=== PATIENT | male | born 1955 | race Caucasian/White ===

== ENCOUNTER 2016-06-18 19:09 | Inpatient (IN) | payer MEDICARE ==
[~2016-06-18] VITALS: Ht 182.9 cm; Wt 152.7 kg
[2016-06-18] MEDS: NYSTATIN 100,000 UNITS/GM TOPICAL PWD 15 GM TOP SCH ×2 (09:00→21:00)
[~2016-06-18 19:09] MED LIST: *XRAY -; /BACL20TA OR; /ESOM40CA; /FENT50PA; /FENT50PA TD; /MOXI40TA; /ONDA4TA OR; /PANT40TA; /PANT40TA OR; /TAMS4CA; ACET65TA; ACET65TA OR; ALDA50TA2 PO; ALLO300T; ALLO300T OR; AMBI10TA OR; AMBI10TA PO; ASPI325T OR; ATEN25TA; ATEN25TA OR; ATIV1TAB2; ATROVENT0.02%; AUGM875T27 PO; BABY81CH; BACITAB PO; BACL-67 PO; BACT2CRE; BACT800T; BUTT PASTE; CARD4TAB2 OR; CEPH500C; CHLO5CA; COLA100C2 OR; DILA2TAB OR; DOCU10CA PO; DOXY10CA PO; DRIS50002 PO; DYAZIDE PO; ENOX40SY SC; EUCECRE2 TOP; FAMO40TA2; FERR325T OR; FLAG500T; FLEEENE4 PR; FLOM5CAP PO; FOLI1TAB; FOLI1TAB OR; FOLI1TAB2 PO; FURO40TA2 PO; GABA300T; HYDROCORTISONE0.5 % TOP; IBUP200T45 PO; KLOR1TAB77 PO; LASI20TA PO; LOPR50TA; LOPR50TA OR; LYRI100C10 PO; MAG400TA PO; MAGN500T2; METO5TAB2 OR; MILKSUS OR; MIRALEX PO; MORP20SO; MS C15TA5; NAPR250T; NAPROSY500 PO; NEURONTIN3 PO; NIFEREX; NORCOTAB PO; NORV5TAB OR; NYST10PW TOP; NYSTATIN POWDER; NYSTATIN TOP; OMEP40CA2 PO; OXYB15TA OR; OXYC5CAP4 OR; PAIN325T; PAXI20TA; PERCOCET PO; POTA10CA2; POTA20TA2; POTASSIUM PO; PREG50CA PO; PROZ20CA11 PO; RAPAFLO; SENN-23 PO; SERT100T OR; SILVADENE; THERGRAN; TOPR50TA PO; Theragran PO; Thiamine Hcl PO; ULTR50TA PO; VICO5TAB; VICO5TAB OR; VICODIN PO; VITA20008 PO; VITA500T OR; VITAMIN B12; VITAMIN B12 PO; XOPE1.252; ZEST10TA5 PO; ZINC220C OR; ZOLO100T; ZOLO50TA; [UNRECOGNIZED DRUG - CODE] PO; [UNRECOGNIZED DRUG - CODE] PO; [UNRECOGNIZED DRUG - OTHER] PO; albuterol sulfate INH; bacid PO; nystatin powder TOP
[2016-06-18] MEDS ORDERED: IPRASOL4 IN (19:33)
[2016-06-18] MEDS ORDERED: MUCI600T34 PO (19:33)
[2016-06-18] MEDS ORDERED: ALBU0.63 INH (19:33)
[2016-06-18] MEDS ORDERED: MULT1TAB10 PO (19:33)
[2016-06-18] MEDS ORDERED: FERR325T3 PO (19:33)
[2016-06-18 20:07] LABS: INR 1.16
[2016-06-18 20:08] LABS: EOS % 0.1 % (0.0-3.0); LARGE UNSTAINED CELL # 0.2 K/mm3 (0.0-0.4); LARGE UNSTAINED CELL % 0.9 % (0.0-4.0); LYMPH # 0.7 K/mm3 (1.5-4.5); MEAN CORPUSCULAR HEMOGLOBIN 30.9 pg (27.0-33.0); MEAN CORPUSCULAR HGB CONC 35.9 g/dl (32.0-36.5); MEAN CORPUSCULAR VOLUME 86.1 fl (80.0-96.0); MONO # 0.9 K/mm3 (0.0-0.8); MONO % 4.3 % (0.0-5.0); NEUTROPHILS % 91.6 % (36.0-66.0); PLATELET COUNT, AUTOMATED 149 k/mm3 (150-450); RED CELL DISTRIBUTION WIDTH 14.3 % (11.5-14.5); WHITE BLOOD COUNT 21.8 K/mm3 (4.0-10.0)
[2016-06-18 20:23] LABS: ALBUMIN 2.6 GM/DL (3.2-5.2); ALBUMIN/GLOBULIN RATIO 0.57 (1.00-1.93); ALKALINE PHOSPHATASE 99 U/L (45-117); ALT/SGPT 28 U/L (12-78); AMYLASE 20 U/L (25-115); ANION GAP 15 MEQ/L (8-16); AST/SGOT 39 U/L (15-37); BILIRUBIN,DIRECT 0.3 MG/DL (0.0-0.2); BILIRUBIN,TOTAL 0.7 MG/DL (0.2-1.0); BLOOD UREA NITROGEN 17 MG/DL (7-18); CALCIUM LEVEL 7.1 MG/DL (8.8-10.2); CARBON DIOXIDE LEVEL 20 MEQ/L (21-32); CHLORIDE LEVEL 77 MEQ/L (98-107); CREATININE FOR GFR 1.14 MG/DL (0.70-1.30); GLOMERULAR FILTRATION RATE > 60.0 (>49); GLUCOSE, FASTING 116 MG/DL (80-110); SODIUM LEVEL 112 MEQ/L (136-145); TOTAL PROTEIN 7.2 GM/DL (6.4-8.2)
[2016-06-18] MEDS ORDERED: NS 500 ML IV ONE (20:45)
[2016-06-18] MEDS ORDERED: NS 1,000 ML IV ONE (20:45)
[2016-06-18] MEDS ORDERED: ISOVUE-370 76% 100ML VIAL (Q9967) As Ordered ONE (20:46)
[2016-06-18] MEDS ORDERED: PREGABALIN 100 MG CAP (LYRICA) PO SCH (21:00)
[2016-06-18] MEDS: SENOKOT S TAB PO SCH (21:00)
--- NOTE | 2016-06-18 21:40 | REPUSA ---
CLINICAL HISTORY: Edema. COMMENTS: Real time sonography with duplex doppler of the extremities bilaterally was performed with attention to the major deep venous structures. Somewhat limited study due to habitus. Evaluation reveals the common femoral, superficial femoral and popliteal veins bilaterally to be comp letely compressible without intraluminal thrombus. There is normal spontaneous phasic flow and augmen tation in all deep veins. The greater saphenous/common femoral vein junctions are patent bilaterally. IMPRESSION: No evidence of DVT in the lower extremities bilaterally. Thank you for your kind referral of this patient.
[2016-06-18] MEDS ORDERED: ONDANSETRON 4MG/2ML VIAL (J2405) IV PRN (22:45)
[2016-06-18] MEDS ORDERED: VITMTA PO (22:50)
[2016-06-18] MEDS ORDERED: POTA20TA PO (22:50)
[2016-06-18] MEDS ORDERED: METO50TA2 PO (22:50)
[2016-06-18] MEDS ORDERED: FLUO20TA28 PO (22:51)
[2016-06-18] MEDS ORDERED: EUCECRE3 TOP (22:57)
[2016-06-18] MEDS ORDERED: IBUPOTC PO (22:57)
[2016-06-18] MEDS ORDERED: CALMOIN TOP (22:57)
[2016-06-18] MEDS ORDERED: ALBUTEROL SULFATE 2.5 MG/0.5 ML INH NEB SOLN INH PRN (23:00)
[2016-06-18] MEDS ORDERED: IPRATROPIUM 0.5MG/ALBUTEROL 2.5MG INH SOL UD 3ML (DUONEB)(J7620) INH PRN (23:00)
[2016-06-18] MEDS ORDERED: SODIUM CHLORIDE 3% 500 ML IV ONE (23:15)
[2016-06-18 23:53] VITALS: BP 151/87
[2016-06-18] MEDS: PANTOPRAZOLE 40MG INJ (PROTONIX) (C9113) IV SCH (23:58)
[2016-06-19] VITALS (34 sets, daily range): BP systolic 84–152; BP diastolic 49–74
[2016-06-19 00:13] LABS: ANION GAP 12 MEQ/L (8-16); BLOOD UREA NITROGEN 19 MG/DL (7-18); CARBON DIOXIDE LEVEL 21 MEQ/L (21-32); CHLORIDE LEVEL 80 MEQ/L (98-107); CHOLESTEROL LEVEL 99 MG/DL (<200); CREATININE FOR GFR 1.04 MG/DL (0.70-1.30); GLOMERULAR FILTRATION RATE > 60.0 (>49); GLUCOSE, FASTING 103 MG/DL (80-110); MAGNESIUM LEVEL 1.7 MG/DL (1.8-2.4); POTASSIUM SERUM 4.1 MEQ/L (3.5-5.1); SODIUM LEVEL 113 MEQ/L (136-145); TRIGLYCERIDES LEVEL 101 MG/DL (<150)
[2016-06-19] MEDS ORDERED: SODIUM CHLORIDE 3% 50 ML IV ONE (00:13)
[2016-06-19] MEDS ORDERED: MAG SULF 1GM/100ML (MAG RUN) 1 GM in APPROPRIATE DILUENT 1 EA IV ONE (01:15)
[2016-06-19] MEDS: PROMETHAZINE INJ 25 MG/ML VIAL (J2550) IV PRN ×2 (01:33→06:40)
[2016-06-19 03:30] LABS: ANION GAP 9 MEQ/L (8-16); BLOOD UREA NITROGEN 21 MG/DL (7-18); CALCIUM LEVEL 7.2 MG/DL (8.8-10.2); CARBON DIOXIDE LEVEL 24 MEQ/L (21-32); CHLORIDE LEVEL 81 MEQ/L (98-107); CREATININE FOR GFR 1.15 MG/DL (0.70-1.30); GLOMERULAR FILTRATION RATE > 60.0 (>49); GLUCOSE, FASTING 109 MG/DL (80-110); POTASSIUM SERUM 4.2 MEQ/L (3.5-5.1); SODIUM LEVEL 114 MEQ/L (136-145)
[2016-06-19] MEDS ORDERED: SODIUM CHLORIDE 3% 500 ML IV SCH (04:15)
--- NOTE | 2016-06-19 05:02 | REP ---
Clinical: Acute abdominal pain. Technique: Axial contrast enhanced images from the lung bases to the pubic symphysis using 100 ml Isovue 370 intravenous contrast material with coronal and sagittal re-formations. Comparison: 07/27/2010. Findings: Lung bases demonstrate chronic interstitial changes and chronic interstitial edema with trace basilar atelectasis. Cholelithiasis noted without CT evidence for acute cholecystitis. Liver, spleen, pancreas, and bilateral adrenal glands are relatively normal. Kidneys and demonstrate age-related atrophic changes and bilateral hypodensities likely representing cysts measuring up to 6 cm in the right kidney and 5.2 cm in left kidney. Complex cyst/mass involving the lower pole of the right kidney measures 2.8 cm maximal diameter and may warrant ultrasound evaluation. The the enteric system is without obstruction or acute inflammatory process. Pelvis demonstrates normal bladder and age appropriate prostate/seminal vesicles. No ascites. No obvious free air. No obvious intraperitoneal or retroperitoneal adenopathy. Vasculature demonstrates atherosclerotic changes without aneurysm. Skeletal structures demonstrate degenerative changes without focal osseous abnormality. Impression: 1. Limited examination due to technical factors and motion artifact. 2. Bibasilar atelectasis and chronic pulmonary parenchymal changes. 3. Cholelithiasis without CT evidence for acute cholecystitis. 4. Renal cysts and possible right complex renal cyst/mass at the inferior pole requiring ultrasound evaluation. Signed by Compa iRggs MD 06/19/2016 04:54 A
[2016-06-19] MEDS: METOPROLOL TART 25 MG TABLET PO SCH ×3 (06:00→18:00)
[2016-06-19 06:55] LABS: MEAN CORPUSCULAR HGB CONC 34.8 g/dl (32.0-36.5); MEAN CORPUSCULAR VOLUME 86.2 fl (80.0-96.0); RED CELL DISTRIBUTION WIDTH 14.5 % (11.5-14.5); WHITE BLOOD COUNT 13.6 K/mm3 (4.0-10.0)
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
[2016-06-19 07:03] LABS: ANION GAP 10 MEQ/L (8-16); BLOOD UREA NITROGEN 24 MG/DL (7-18); CALCIUM LEVEL 6.9 MG/DL (8.8-10.2); CARBON DIOXIDE LEVEL 22 MEQ/L (21-32); CHLORIDE LEVEL 84 MEQ/L (98-107); CREATININE FOR GFR 1.21 MG/DL (0.70-1.30); GLOMERULAR FILTRATION RATE > 60.0 (>49); GLUCOSE, FASTING 101 MG/DL (80-110); MAGNESIUM LEVEL 2.3 MG/DL (1.8-2.4); POTASSIUM SERUM 4.1 MEQ/L (3.5-5.1); SODIUM LEVEL 116 MEQ/L (136-145)
[2016-06-19 07:09] LABS: OSMOLALITY URINE 231 MOSM/KG (500-800)
[2016-06-19] MEDS ORDERED: OXAZEPAM 10 MG CAP PO PRN (07:15)
[2016-06-19] MEDS ORDERED: SANTYL OINT 30GM TOP SCH (09:00)
[2016-06-19] MEDS: TAMSULOSIN 0.4 MG CAP PO SCH (09:00)
[2016-06-19] MEDS ORDERED: FERROUS SULFATE 325MG TAB PO SCH (09:00)
[2016-06-19] MEDS: BACLOFEN 10 MG TAB PO SCH (09:51)
[2016-06-19] MEDS: FOLIC ACID 1 MG TAB PO SCH (09:51)
[2016-06-19] MEDS: THIAMINE 100 MG TAB PO SCH (09:51)
[2016-06-19] MEDS: MULTIVITAMINS/MINERALS THERAP 1 TAB PO SCH (09:51)
[2016-06-19] MEDS: PANTOPRAZOLE 40MG INJ (PROTONIX) (C9113) IV SCH ×2 (09:51→21:16)
[2016-06-19] MEDS: PREGABALIN 75 MG CAP(LYRICA) PO SCH ×2 (09:53→21:16)
[2016-06-19] MEDS: NYSTATIN 100,000 UNITS/GM TOPICAL PWD 15 GM TOP SCH ×2 (09:53→21:17)
[2016-06-19 10:38] LABS: ANION GAP 9 MEQ/L (8-16); BLOOD UREA NITROGEN 25 MG/DL (7-18); CALCIUM LEVEL 7.3 MG/DL (8.8-10.2); CARBON DIOXIDE LEVEL 23 MEQ/L (21-32); CHLORIDE LEVEL 86 MEQ/L (98-107); CREATININE FOR GFR 1.22 MG/DL (0.70-1.30); GLOMERULAR FILTRATION RATE > 60.0 (>49); GLUCOSE, FASTING 93 MG/DL (80-110); POTASSIUM SERUM 4.1 MEQ/L (3.5-5.1); SODIUM LEVEL 118 MEQ/L (136-145)
[2016-06-19] MEDS ORDERED: CALCIUM GLUCONATE 1,000 MG in D5W MINI-BAG PLUS 100 ML IV ONE (11:00)
[2016-06-19 11:03] LABS: ALBUMIN 2.5 GM/DL (3.2-5.2)
[2016-06-19 11:45] LABS: OSMOLALITY URINE 107 MOSM/KG (500-800)
--- NOTE | 2016-06-19 11:46 | ECGEPIP ---
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
[2016-06-19] MEDS: OXAZEPAM 10 MG CAP PO SCH ×2 (12:00→18:00)
[2016-06-19] MEDS ORDERED: NS 500 ML IV ONE (13:00)
--- NOTE | 2016-06-19 13:07 | IPN ---
DATE OF SERVICE: 06/19/2016 Patient admitted overnight. Denies any reported nausea or vomiting, with coarse coffee ground and cough productive of yellow phlegm. Denies any fevers or chills. Reported epigastric abdominal discomfort associated with vomiting. Patient also reported significant alcohol drinking, last drink was yesterday. Denies any chest pain, pressure or discomfort. Denies any fevers or chills. VITAL SIGNS: Temperature 98, pulse 105, respirations 20, blood pressure 96/52, pulse oximetry 95% on room air. LABORATORIES: WBC 13.6, hemoglobin and hematocrit 9.8/28.1, platelets 121. Chemistries: Sodium 118, potassium 4.1, chloride 86, bicarb 23, BUN 25, creatinine 1.22. PHYSICAL EXAMINATION: GENERAL: Patient morbidly obese, pale, in no acute distress. HEENT: Disheveled. Alert. Normocephalic, atraumatic. Moist mucous membranes. PULMONARY: Bilaterally clear. No wheeze. Distant breath sounds. CARDIAC: Mild tachycardia, regular S1 and S2. ABDOMEN: Obese. Mild epigastric tenderness. No rebound, no guarding. Positive bowel sounds. EXTREMITIES: Denuded skin in the inguinal region due to likely candidal infection. Left lower extremity cem wrap intact, was cut showing venous stasis skin changes with ulcers, draining purulent drainage. Affect flattened. ASSESSMENT/PLAN: This is a 61-year-old male patient, morbidly obese, with underlying medical history of chronic back pain, hypertension, spinal cord injury in 2001 resulting in being wheelchair bound with lower extremity paralysis, chronic left leg ulceration with venous stasis skin changes, history of gangrene in the left groin 2006, depression, venous insufficiency of his lower extremities, benign prostatic hypertrophy (BPH), alcohol abuse, gastroesophageal reflux disease (GERD), vitamin D deficiency, insomnia, who presented with hyponatremia with suspected coffee ground emesis. 1. Severe hyponatremia. Urine sodium and urine osmolality appreciated, TSH and cortisol levels. Possible SIADH. Patient's diuretic has been on hold. Pattern Layout Worker Dr. Turcios has been consulted. Patient currently on hypotonic saline. Follow basic metabolic panel every 4 hours. Possible alternative is beer potomania given the patient has been drinking excessive since he signed himself from the retirement in [place]. No evidence of seizures or altered mental status. 2. Coffee ground emesis, possibly upper GI bleed. Protonix twice a day. Gastritis. Fecal occult positive in the emergency room. Dr. Jimenez has been consulted. Nothing by mouth right now for possible EGD later today once electrolytes are improved. 3. Leukocytosis, likely reactive. Has been improving without any significant antibiotics. Will continue to monitor closely. If the patient is febrile will send cultures. Followup cultures. 4. Chronic left lower extremity ulcers. Patient was initially taken care of by wound at [place]. He is supposed to be followed up with Dr. Perera. Case discussed with Dr. Perera who recommends Vashe cleanser with collagenase and foam dressing with Kerlix and Coban, and leg elevation. Will followup C-reactive protein to see if the patient needs additional cultures to see if the patient needs any antibiotics. 5. Renewed alcohol use. Monitor for withdrawal. Serax standing as needed. Patient is mildly tachycardic. Thiamine, folic and multivitamin. 6. Morbid obesity complicating care. 7. Anemia with normal MCV. Followup hemoglobin and hematocrit. Transfuse as needed. 8. Hypoalbuminemia. Protein calorie malnutrition. Early feeding. Supportive care. 9. Lactic acidosis. Will continue to monitor. 10. Chronic back pain with spinal cord injury. Patient wheelchair bound. Supportive care. Patient and family services (PFS) consulted. 11. Deep vein thrombosis (DVT) prophylaxis. Due to evidence of upper GI bleed, sequential compression devices (SCD) and thromboembolic deterrent stockings (TEDS) will only be placed on the patient's right lower extremity given the patient's left lower extremity has lesions. DISPOSITION: Pending clinical improvement, patient and family services (PFS). Will continue to follow.
[2016-06-19] MEDS ORDERED: CEFTAROLINE FOSAMIL 600 MG in D5W MINI-BAG PLUS 50 ML IV SCH (13:30)
--- NOTE | 2016-06-19 13:58 | ECHO ---
DATE OF SERVICE: 06/19/2016 PATIENT LOCATION: Room 3207. REFERRING PROVIDER: Dr. Pruitt REASON FOR THE CONSULT: Edema. 2D MEASUREMENTS: IVS: 1.4 cm LV: 4.6 cm LVPW: 1.5 cm LA: 4.1 cm Aorta: 3.9 cm IVC: 1.7 cm DOPPLER MEASUREMENTS: Mitral E: 0.65 Mitral A: 0.87 with a ratio of 0.75 2D COMMENTS: 1. Technically limited study due to poor acoustic window. 2. The left ventricular size is normal with mildly increased left ventricular wall thickness and a normal global left ventricular systolic function estimated at 60-65%. 3. Mildly enlarged left atrium. The right atrium and the right ventricle appear to be normal in size on limited views. 4. The atrial septum appeared to be normal without evidence of defect or shunt. 5. Mildly enlarged aortic root at 3.9 cm. The descending thoracic aorta also appeared to be mildly enlarged on limited views. 6. Trace to small pericardial effusion noted, no evidence of cardiac tamponade. 7. Mildly calcified aortic valve with normal leaflet excursion. Mildly calcified mitral annulus with normal anterior mitral valve leaflet motion. Normal tricuspid valve. The pulmonic valve on limited views appeared to be normal. The proximal pulmonary artery branches were not well visualized. 8. The inferior vena cava was normal in size, central venous pressure is probably normal. DOPPLER: No significant valvular abnormalities detected. Abnormal relaxation pattern was noted across the mitral valve leaflets as well as the mitral valve annulus, consistent with a delayed relaxation. IMPRESSION: 1. Technically limited study due to poor acoustic window. 2. Normal global left ventricular systolic function with mild concentric left ventricular hypertrophy. There are features of left ventricular diastolic dysfunction, grade 1. 3. Aortic valve sclerosis without stenosis or significant aortic regurgitation. 4. Isolated mildly dilated left atrium, no significant mitral regurgitation detected. There is mildly calcified mitral annulus. The dilated left atrium is most likely related to the underlying left ventricular diastolic dysfunction because there is no significant mitral regurgitation and/or mitral stenosis. 5. Central venous pressure is probably normal, as well as pulmonary artery pressure. 6. The aortic root was mildly enlarged at 3.9 cm. edited: 06/19/2016 [id number] tkf MTDD
[2016-06-19] MEDS: cefTRIAXone SOD 1 GM in D5W MINI-BAG PLUS 50 ML IV SCH (14:13)
--- NOTE | 2016-06-19 14:22 | REP ---
Chest one-view HISTORY: Cough Comparison: 12/03/2013 There is elevation of the right hemidiaphragm. The lungs are clear. The heart is normal in size. The pulmonary vasculature is normal in appearance. Impression: No acute disease. Signed by Uday Granados MD 06/19/2016 02:14 P
[2016-06-19] MEDS ORDERED: SLF 3 ML SYR IV PRN (14:45)
--- NOTE | 2016-06-19 14:46 | CR ---
DATE OF CONSULTATION: 06/19/2016 REQUESTING PHYSICIAN: Ravi Wilkins MD CONSULTING PHYSICIAN: Selwyn Turcios MD REASON FOR CONSULTATION: Management of severe hyponatremia. CHIEF COMPLAINT: Patient presented to the hospital yesterday with persistent vomiting. NOTE: History was obtained from the patient's chart from primary medical team. Patient is not a very good historian. HISTORY OF PRESENT ILLNESS: Mr. Rocio Eng is a 61-year-old male who has a past medical history of morbid obesity, and questionable history of hyponatremia in the past as well, as reported by the patient. He was recently discharged from the residential on June 13, 2016. When he went home he started drinking beer for the first time in many months. He started vomiting after that without any abdominal pain. The patient was drinking beer and drinking a lot of liquids and he was not eating a significant amount of food. The patient started vomiting coffee ground emesis two days before discharge. He presented to the emergency room yesterday because of severe nausea, vomiting and weakness. He was found to have a sodium of 112 on admission with serum osmolality of 241. The patient was discussed by me with the quality control lead hospitalist yesterday, Dr. Wilkins. He was initially hydrated with 1500 mL of IV normal saline. Later on, because of nausea, vomiting and severe hyponatremia, he was given a bolus of hypertonic saline 50 mL, and later on started on hypotonic saline at 30 mL an hour. Health Informatics Advisor service is on board for management of severe hyponatremia. The patient was examined by me today in the morning in the ICU. He is awake, alert and oriented times three. He is still nauseated, but he reports that his vomiting is improving now. PAST MEDICAL HISTORY: Patient has a past medical history of morbid obesity, chronic back pain, hypertension, left sided leg ulcer, history of depression, bilateral lower extremity venous insufficiency, BPH, vitamin D deficiency, insomnia, and depression. PAST SURGICAL HISTORY: In the past, patient had right hernia surgery in the past. Skin graft of the left leg. ALLERGIES: No known drug allergies. HOME MEDICATIONS: The patient's home medications included: - albuterol as needed - DuoNeb nebulizations as needed - baclofen 20 mg by mouth daily - Colace two tablets at night - iron tablet on by mouth daily - fluoxetine 30 mg by mouth daily - Lasix 20 mg by mouth daily - Mucinex 600 mg by mouth twice a day - ibuprofen 200 mg every 6 hours as needed - metoprolol 50 mg twice a day - multivitamin - nystatin topical - omeprazole 20 mg by mouth daily - potassium chloride 20 mEq by mouth daily - Lyrica 75 mg by mouth twice a day - spironolactone 50 mg by mouth daily - Flomax 0.4 mg by mouth daily - Ambien 10 mg at bedtime FAMILY HISTORY: No significant family history of end stage renal disease or hemodialysis. SOCIAL HISTORY: Patient was recently discharged from the residential after a long stay there. He does not smoke. Patient is wheelchair bound. REVIEW OF SYSTEMS: CONSTITUTIONAL: Patient reports weakness and inability to walk around. Otherwise, he denies any fever, chills or rigors. EYES: Patient denies any blurry vision or double vision. ENT: He denies any dysphagia or odynophagia, ear discharge or ear pain. CARDIOVASCULAR: He denies any chest pains or palpitations. RESPIRATORY: He reports a history of obesity hypoventilation and obstructive sleep apnea (RUTH). Otherwise, he denies any shortness of breath at this time. GASTROINTESTINAL (GI): He reports vomiting blood and nausea and decreased appetite. GENITOURINARY (): He denies any dysuria or hematuria. MUSCULOSKELETAL: He reports a left leg ulcer and lower extremity edema. SENIOR QUALITY MANAGER: He denies any strokes or seizures. SKIN: He reports a fungal rash in the groin. PSYCH: He reports a history of depression. HEMATOLOGIC/ONCOLOGIC: He denies any history of malignancy. ENDOCRINE: Patient denies any history of diabetes, hyperthyroidism, or hypothyroidism. All other review of systems is negative. PHYSICAL EXAMINATION: GENERAL: Patient is awake, alert and oriented times three, laying in bed, slightly nauseated. Otherwise, no apparent distress. VITAL SIGNS: Temperature is 98 degrees Fahrenheit, blood pressure is 96/52, pulse is 105, respiratory rate of 20, saturating 95% on room air. INTAKE AND OUTPUT: Urine output recorded as 800 mL so far today since overnight. HEAD/NECK EXAM: Extraocular muscles intact. Pupils equally round and reactive to light. Mucous membranes are moist. Neck is supple. There is no jugular venous distention (JVD). CARDIOVASCULAR: S1 and S2, slight tachycardia, otherwise, no murmur, rub or gallop. RESPIRATORY: Chest is clear to auscultation bilaterally. Bilateral equal air entry. No rales or rhonchi. ABDOMEN: Soft. Positive bowel sounds. He is obese. There is no organomegaly. No ascites. Patient has a fungal rash in the groin. GENITOURINARY (): Patient has a Anderson catheter with clear urine in the bag. EXTREMITIES: Patient has venous stasis changes of the bilateral lower extremities with trace edema of he right leg. The left leg is wrapped in a dressing. SENIOR QUALITY MANAGER: No focal neurological deficits at this time. Patient follows all commands. PSYCH: Normal mood and affect. SKIN: Groin fungal rash as mentioned above and left leg ulcer. LAB REVIEW: CBC showed a WBC of 13.6, hemoglobin 9.8, platelets of 121, INR is 1.16. Urinalysis showed 2+ blood. Trace leukocyte esterase. WBCs were 13. Random osmolality was 231 with a sodium of 11, but a random urine osmolality is 107 and urine sodium is less than 10. BMP on admission showed a sodium of 112. Now his sodium has improved to 118. Potassium is 4.1. Chloride is 86, bicarb is 23, BUN is 25, creatinine is 1.22. Serum osmolarity was 241 yesterday. Calcium is 7.3. Albumin is 2.5. Lipase is 80. Cortisol is pending. TSH is 0.725. Amylase is 20, lipase is 111. Lipid panel is within acceptable limits. BNP was 104. IMAGING: Doppler of the bilateral lower extremities was negative for DVT. CT scan of the abdomen and pelvis with IV contrast was done yesterday which showed bibasilar atelectasis and chronic pulmonary parenchymal changes. There were renal cysts bilaterally with a possible complex right renal cyst requiring ultrasound evaluation. CURRENT MEDICATIONS: The patient's current medications include: - hypertonic saline at 30 mL an hour - mag sulfate 1 gram IV times one dose was given today - calcium gluconate 1 gram IV times one dose - DuoNeb nebulizations - baclofen 20 mg by mouth daily - Santyl topical ointment - folic acid 1 mg by mouth daily - metoprolol 25 mg every 6 hours with holding parameters - nystatin topical powder - Zofran as needed - oxazepam 10 mg every 4 hours as needed for withdrawal - Protonix 40 mg IV every 12 hours - Lyrica 75 mg by mouth twice a day - Flomax 0.4 mg by mouth daily - thiamine 100 mg by mouth daily ASSESSMENT: 61-year-old male who was admitted with an upper gastrointestinal (GI) bleed, severe hyponatremia. Nephrology service following the patient for management of severe hyponatremia. PLAN: 1. Severe hypotonic hyponatremia. Patient seems euvolemic to slightly hypervolemic, however, the patient is having GI bleed and he is borderline hypotensive as well. Urine osmolarity was initially high, which is coming down now. Urine sodium is very low. Initial picture looked syndrome of inappropriate secretion of antidiuretic hormone (SIADH) probably secondary to medications; however, I am going to do an echocardiogram as well to rule out congestive heart failure (CHF). I cannot give Lasix to this patient at this time because of borderline hypotension and GI bleed. Patient is getting hypertonic saline at 30 mL an hour. Sodium is nicely improving. The aim of correction of sodium level will be around 6-8 mEq every 24 hours. Patient clinically neurologically is stable. Continue to check BMP every 4 hours and urine osmolality and urine sodium every 8 hours for now. 2. Acute upper GI bleeding, most likely secondary to gastritis. Patient was drinking heavily as well. Patient is still nauseated. GI consult is pending. Continue the Protonix 40 mg IV twice a day. Continue anti-nausea medications. Monitor CBC every 8 hours. Transfuse as needed for a drop in hemoglobin below 8. 3. Leukocytosis. Left lower extremity ulcer and WBCs in the urine. I am going to start the patient on IV Rocephin for leukocytosis and prevention of infection. Once the GI bleed improves, then IV antibiotics will be stopped. 4. History of depression. Patient was on fluoxetine 30 mg by mouth daily. Fluoxetine sometimes can cause SIADH and hyponatremia, especially in the elderly. Fluoxetine has been held. It should not be restarted at this time and if needed, the patient should be given a non-SSRI antidepressant to prevent recurrence hyponatremia in the future. 5. Hypertension. Patient is currently hypotensive because of the GI bleed. Metoprolol has holding parameters. He is not receiving metoprolol at this time. Thank you for involving us in the care of this patient. We shall be happy to follow the patient along with you. I will continue to follow the serial BMP and adjust the IV fluids as needed. Plan of care was discussed with the patient's RN at the bedside and with the quality control lead hospitalist last night.
[2016-06-19 14:50] LABS: ANION GAP 9 MEQ/L (8-16); BLOOD UREA NITROGEN 24 MG/DL (7-18); CARBON DIOXIDE LEVEL 23 MEQ/L (21-32); CHLORIDE LEVEL 90 MEQ/L (98-107); CREATININE FOR GFR 1.25 MG/DL (0.70-1.30); GLOMERULAR FILTRATION RATE > 60.0 (>49); GLUCOSE, FASTING 86 MG/DL (80-110); POTASSIUM SERUM 4.3 MEQ/L (3.5-5.1); SODIUM LEVEL 122 MEQ/L (136-145)
[2016-06-19] MEDS ORDERED: LIDOCAINE 2% INJ 100 MG/5 ML SDV (FOR ANES.) As Ordered ONE (15:15)
[2016-06-19] MEDS ORDERED: PROPOFOL 200 MG/20 ML VIAL As Ordered ONE (15:15)
[2016-06-19] MEDS ORDERED: PHENYLephrine HCL 500 MCG/5 ML (100MCG/ML) SYRINGE (J2370) As Ordered ONE ×2 (15:29→15:47)
--- NOTE | 2016-06-19 16:19 | ROOR ---
Patient Name: Rocio Eng Procedure Date: 06/19/2016 2:59 PM Date of : 1955 Age: 61 Gender: Male Note Status: Finalized Procedure: Upper GI endoscopy Indications: Acute post hemorrhagic anemia, Coffee-ground emesis, Hematemesis Providers: Ravi JIMENEZ MD Referring MD: 2. Inpatient 2. Inpatient Requesting Provider: 2. Inpatient 2. Inpatient Medicines: Monitored Anesthesia Care Complications: No immediate complications. Procedure: Pre-Anesthesia Assessment: - The heart rate, respiratory rate, oxygen saturations, blood pressure, adequacy of pulmonary ventilation, and response to care were monitored throughout the procedure. The Endoscope was introduced through the mouth, and advanced to the second part of duodenum. The upper GI endoscopy was accomplished without difficulty. The patient tolerated the procedure well. Findings: Severe esophagitis was found in the entire esophagus. A 5 mm non-bleeding Claudette-Turner tear with fresh adherent blood clot/stigmata of recent bleeding was found. To repair the defect, the tissue edges were approximated and four hemostatic clips were successfully placed (MR conditional). Closure of the defect was successful. There was no bleeding at the end of the procedure. The entire examined stomach was normal. Biopsies were taken with a cold forceps for Helicobacter pylori testing. Multiple erosions without bleeding were found in the first portion of the duodenum and in the second portion of the duodenum. Impression: - Claudette-Turner tear at/below EG junction. Clips (MR conditional) were placed. - Severe esophagitis with mucosal sclerosis. - Normal stomach. Biopsied. - Erosive duodenopathy without bleeding. Recommendation: - Use a proton pump inhibitor IV BID. - Use Zofran (ondansetron) 4 mg IV QID.(straight dose to prevent nausea/retching for the next 24 hrs, then can use PRN - Clear liquid diet. - Observe patient's clinical course. - [facility] care. Ravi Jimenez MD Ravi JIMENEZ MD 06/19/2016 4:19:37 PM This report has been signed electronically. Number of Addenda: 0 Note Initiated On: 06/19/2016 2:59 PM Estimated Blood Loss: Estimated blood loss: none.
[2016-06-19] MEDS: AZITHROMYCIN INJ 500 MG, VIAL MATE ADAPTER 1 EACH in D5W 250 ML IV SCH (16:24)
[2016-06-19 16:59] LABS: OSMOLALITY URINE 92 MOSM/KG (500-800)
[2016-06-19 18:33] LABS: ANION GAP 11 MEQ/L (8-16); BLOOD UREA NITROGEN 23 MG/DL (7-18); CALCIUM LEVEL 6.8 MG/DL (8.8-10.2); CARBON DIOXIDE LEVEL 21 MEQ/L (21-32); CHLORIDE LEVEL 92 MEQ/L (98-107); CREATININE FOR GFR 1.27 MG/DL (0.70-1.30); GLOMERULAR FILTRATION RATE > 60.0 (>49); GLUCOSE, FASTING 100 MG/DL (80-110); POTASSIUM SERUM 3.4 MEQ/L (3.5-5.1); SODIUM LEVEL 124 MEQ/L (136-145)
[2016-06-19] MEDS: ONDANSETRON 4MG/2ML VIAL (J2405) IV SCH (18:48)
[2016-06-19] MEDS ORDERED: POTASSIUM CHLORIDE 10 MEQ SR TABLET PO ONE ×2 (19:30→23:00)
[2016-06-19] MEDS ORDERED: D5W 1000 ML IV ONE (19:30)
[2016-06-19] MEDS: SENOKOT S TAB PO SCH (21:16)
[2016-06-19] MEDS: SLF 3 ML SYR IV SCH (21:17)
[2016-06-19 21:57] LABS: OSMOLALITY URINE 87 MOSM/KG (500-800)
[2016-06-19 22:35] LABS: CREATININE FOR GFR 1.4 MG/DL (0.70-1.30); POTASSIUM SERUM 3.6 MEQ/L (3.5-5.1)
[2016-06-19] MEDS ORDERED: D5W 250 ML IV ONE (23:00)
[2016-06-20] VITALS (10 sets, daily range): BP systolic 95–131; BP diastolic 52–74
[2016-06-20] MEDS: ONDANSETRON 4MG/2ML VIAL (J2405) IV SCH ×2 (00:08→05:36)
[2016-06-20 01:54] LABS: OSMOLALITY URINE 93 MOSM/KG (500-800)
[2016-06-20 02:26] LABS: CALCIUM LEVEL 7.6 MG/DL (8.8-10.2); CREATININE FOR GFR 1.4 MG/DL (0.70-1.30)
[2016-06-20] MEDS: OXAZEPAM 10 MG CAP PO SCH ×2 (05:32)
[2016-06-20] MEDS: METOPROLOL TART 25 MG TABLET PO SCH ×5 (05:32→23:55)
[2016-06-20] MEDS: SLF 3 ML SYR IV SCH ×3 (05:37→21:47)
[2016-06-20 06:08] LABS: OSMOLALITY URINE 102 MOSM/KG (500-800)
[2016-06-20 06:20] LABS: MEAN CORPUSCULAR HEMOGLOBIN 31.2 pg (27.0-33.0); MEAN CORPUSCULAR HGB CONC 35.1 g/dl (32.0-36.5); MEAN CORPUSCULAR VOLUME 88.8 fl (80.0-96.0); RED CELL DISTRIBUTION WIDTH 14.9 % (11.5-14.5); WHITE BLOOD COUNT 9.4 K/mm3 (4.0-10.0)
[2016-06-20 06:31] LABS: CALCIUM LEVEL 7.5 MG/DL (8.8-10.2); CREATININE FOR GFR 1.46 MG/DL (0.70-1.30); GLOMERULAR FILTRATION RATE 52.4 (>49); MAGNESIUM LEVEL 2.4 MG/DL (1.8-2.4); POTASSIUM SERUM 4.1 MEQ/L (3.5-5.1)
[2016-06-20] MEDS: PANTOPRAZOLE 40MG INJ (PROTONIX) (C9113) IV SCH ×2 (09:30→21:46)
[2016-06-20] MEDS: FOLIC ACID 1 MG TAB PO SCH (09:31)
[2016-06-20] MEDS: MULTIVITAMINS/MINERALS THERAP 1 TAB PO SCH (09:31)
[2016-06-20] MEDS: THIAMINE 100 MG TAB PO SCH (09:31)
[2016-06-20] MEDS: BACLOFEN 10 MG TAB PO SCH (09:31)
[2016-06-20] MEDS: PREGABALIN 75 MG CAP(LYRICA) PO SCH ×2 (09:31→21:46)
[2016-06-20] MEDS: TAMSULOSIN 0.4 MG CAP PO SCH (09:33)
[2016-06-20 10:28] LABS: OSMOLALITY URINE 96 MOSM/KG (500-800)
[2016-06-20] MEDS ORDERED: ONDANSETRON 4MG/2ML VIAL (J2405) IV PRN (10:30)
[2016-06-20] MEDS ORDERED: SODIUM CHLORIDE 0.9% 1000 ML IV ONE (11:00)
[2016-06-20 11:05] LABS: CORTISOL BASELINE 46.9 UG/DL (4.3-22.4)
[2016-06-20] MEDS: NYSTATIN 100,000 UNITS/GM TOPICAL PWD 15 GM TOP SCH ×2 (11:18→21:47)
[2016-06-20] MEDS: cefTRIAXone SOD 1 GM in D5W MINI-BAG PLUS 50 ML IV SCH (12:54)
--- NOTE | 2016-06-20 13:02 | IPN ---
DATE OF SERVICE: 06/20/2016 SUBJECTIVE: The patient was seen and examined at the bedside today in the morning in the intensive care unit (ICU). His sodium level continues to improve. Last 24-hour events were noted. The patient got the esophagogastroduodenoscopy (EGD) done. He was found to have nonbleeding Claudette-Turner tear, which was repaired. He was found to have severe esophagitis and erosive duodenopathy. The patient reports that his nausea and vomiting is improving today, and his urine osmolality is showing that he is adequately diluting his urine at this time. REVIEW OF SYSTEMS: The patient denies any fevers, chills, rigors, headache. He denies any nausea or vomiting. He is tolerating the liquid diet now. He denies any pain abdomen, constipation, or diarrhea. He reports persistent weakness and inability to walk. The rest of review of system is negative. OBJECTIVE: VITAL SIGNS: Temperature is 97.5 degrees Fahrenheit, blood pressure is 127/74, pulse is 91, respiratory rate of 18, saturating 98% on room air. INTAKE AND OUTPUT: Urine output recorded is 3.6 liters yesterday and 1.5 liters so far today since overnight. Weight on the bed scale is 158 kg. PHYSICAL EXAMINATION: GENERAL: The patient is awake, alert, oriented times three, laying in bed, no apparent distress. HEAD AND NECK EXAMINATION: Extraocular muscles intact. Pupils equally round and reactive to light. Mucous membranes are moist. Neck is supple. There is no jugular venous distention (JVD). CARDIOVASCULAR: S1, S2, tachycardia. Otherwise, no murmur, rub, and gallop. RESPIRATORY: Chest is clear to auscultation bilaterally. Bilateral equal air entry. No rales or rhonchi. ABDOMEN: Is obese, soft. Positive bowel sounds. There is no organomegaly. No ascites. He has a fungal rash in the groin. GENITOURINARY: The patient has a Anderson catheter and clear urine in the bag. EXTREMITIES: The patient has venous stasis changes in bilateral lower extremities. The left leg is wrapped in a dressing. CENTRAL NERVOUS SYSTEM (SENIOR RECRUITER): No focal neurological deficit. He follows commands. PSYCHIATRIC: Normal mood and affect. SKIN: The patient has fungal rash in the groin and a leg ulcer on the left leg, which is wrapped in a dressing. LABORATORY REVIEW: CBC showed a WBC of 9.4, hemoglobin is 9, platelets are 117. BMP showed sodium 125, potassium 4.1, chloride 95, bicarbonate 23, BUN 23, creatinine is 1.46, calcium is 7.5, magnesium is 2.4, C-reactive protein is 10.7 today. Urine osmolality this morning was 96, and random urine sodium is 16. CURRENT MEDICATIONS: The patient's medications were all reviewed by me. He is currently on: - azithromycin - Rocephin He was given a normal saline bolus yesterday. He will get another bolus of normal saline today. The patient was given boluses of D5W yesterday, as well, because of rapidly correcting sodium. Zofran has been stopped, and oxazepam dose has been decreased to as needed only now. ASSESSMENT: A 61-year-old male who was admitted to ICU with upper gastrointestinal (GI) bleeding and severe symptomatic hyponatremia. Nephrology service following the patient for management of severe hyponatremia and acute kidney injury. PLAN: 1. Severe hypotonic hyponatremia. Sodium level is significantly improving. It is 125 now. The patient is adequately diluting his urine now. I am expecting that his sodium will be normalized by tomorrow afternoon. Continue to monitor basic metabolic profile (BMP). However, the frequency has been decreased to every 8 hours. We do not need to do urine osmolality and urine sodium any more. Continue to monitor daily intake, output, and daily weights. 2. Acute upper gastrointestinal bleeding. The patient had severe esophagitis and Claudette-Turner tear, which was repaired. He is not vomiting any more. His hemoglobin is stable at 9. Appreciate the GI input and help and management of this patient. 3. Leukocytosis. The patient had lower extremity ulcer, and he was having active GI bleeding. He was started on Rocephin. I see that he has been started on azithromycin, as well. Rocephin will be stopped after 5 days. 4. Hypertension. Blood pressure is acceptable at this time. Continue current dose of metoprolol 25 mg every 6 hours with holding parameters. 5. History of depression. The patient was on fluoxetine on admission, which was stopped because fluoxetine can cause syndrome of inappropriate secretion of antidiuretic hormone (SIADH) and hyponatremia. If needed, the patient should be given a non-selective serotonin reuptake inhibitor (SSRI) antidepressant to prevent recurrent hyponatremia. 6. Acute kidney injury. The patient's creatinine on admission was around 1. It has gone up to 1.4 now. Most likely, this is secondary to dehydration because the patient was nothing by mouth and was having aquaresis. I have ordered a dose of normal saline balus 500 mL times one dose. The patient is also starting a regular diet now, and he was encouraged to keep himself hydrated. The plan of care was discussed with the patient's RN at the bedside.
[2016-06-20 14:25] LABS: CALCIUM LEVEL 7.5 MG/DL (8.8-10.2); CREATININE FOR GFR 1.55 MG/DL (0.70-1.30); GLOMERULAR FILTRATION RATE 48.9 (>49); POTASSIUM SERUM 4.1 MEQ/L (3.5-5.1)
[2016-06-20] MEDS: AZITHROMYCIN INJ 500 MG, VIAL MATE ADAPTER 1 EACH in D5W 250 ML IV SCH (14:48)
--- NOTE | 2016-06-20 19:08 | IPN ---
DATE: 06/20/2016 Patient is seen and examined. No acute events overnight. Currently tolerating oral, does not feel much hungry but is having meals. Denies any chest pain, pressure or discomfort. Nausea and vomiting had resolved. Coughing has also resolved. He is also putting out a substantial amount of urine. VITAL SIGNS: Temperature 97.4, pulse 77, respirations 18, blood pressure ranging from 90-131 systolic and diastolic 60-53, pulse oximetry 100% on room air. LABORATORIES: WBC 9.4, hemoglobin and hematocrit 9/25.7, platelets 117. Chemistry: Sodium 129, potassium 4.1, chloride 100, bicarbonate 23, BUN 22, creatinine 1.55. PHYSICAL EXAMINATION: GENERAL: Patient morbidly obese, pale, in no acute distress. HEENT: Disheveled, alert. Normocephalic, atraumatic. Dry mucous membranes. PULMONARY: Bilaterally clear to auscultation. Distant breath sounds. CARDIAC: Regular rate and rhythm with normal S1, S2. ABDOMEN: Obese, nontender. Positive bowel sounds. EXTREMITIES: Denuded skin in the inguinal region due to likely nighat infection. Left lower extremity with [place] wrap, showing venous stasis skin changes and ulcers, purulent drainage. ASSESSMENT AND PLAN: This is a 61-year-old male patient, morbidly obese, with underlying medical history of chronic back pain, hypertension, spinal cord injury in 2001 resulting in being wheelchair bound with lower extremity paralysis and chronic left leg ulceration with venous stasis skin changes, history of gangrene in the left groin 2006, depression, venous insufficiency of his lower extremities, benign prostatic hypertrophy (BPH), alcohol abuse, gastroesophageal reflux disease (GERD), vitamin D deficiency, and insomnia who presented with hyponatremia with suspected coffee-ground emesis after patient signed himself out from nursing facility in [place] a week prior admission. PROBLEMS: 1. Severe hypotonic hyponatremia. Possibly secondary to syndrome of inappropriate secretion of antidiuretic hormone (SIADH). Car Storer has been consulted. Initially given hypertonic saline. Patient's diuretic has been hold as well as patient's fluoxetine. Nephrology has been consulted. Basic metabolic panel has been followed with every eight hours now, initially every four hours with also every eight hours urine osmolality and urine sodium. Also possibly alternative beer potomania given patient has been drinking excessively since he signed himself out of alf in [place]. No evidence of seizure or altered mental status. Currently, sodium has been correcting appropriately. Initially given hypertonic saline, currently off. We will continue to monitor. Followup with nephrology recommendation. 2. Coffee-ground emesis, status post esophagogastroduodenoscopy (EGD) secondary to Claudette-Turner tear. Appreciate Dr. Ravi Jimenez's assistance. Followup hemoglobin and hematocrit. Transfuse as needed. Diet has been advanced to soft. 3. Leukocytosis, possibly reactive versus infectious. Patient does have lower extremity ulcers. Currently on Rocephin and azithromycin given patient with cough. X-ray has been negative. Patient will complete five more days of antibiotics. Followup cultures. Currently, patient is afebrile. 4. Chronic left lower extremity ulcers. Patient initially taken care of by wound care at [place]. He was supposed to followup with Dr. Perera. Case discussed with Dr. Perera who recommended Vashe cleanser with foam dressing, Kerlix and Coban, and leg elevation. Followup C-reactive protein. Continue antibiotics mentioned above. Followup cultures. 5. Renewed alcohol use. No evidence of withdrawal at this time. Serax as needed. Thiamine, folic acid and multivitamin. 6. Morbid obesity, complicating care. 7. Anemia. Followup hemoglobin and hematocrit. Transfuse as needed. 8. Hypoalbuminemia. Protein-calorie malnutrition. Early feeding. Supportive care. 9. Lactic acidosis, resolved. 10. Chronic back pain with spinal cord injury. Patient wheelchair bound. Supportive care. Patient and family services (PFS) consulted. 11. Deep vein thrombosis (DVT) prophylaxis. Given patient has evidence of upper gastrointestinal (GI) bleed, we will hold anticoagulation. Sequential compression device for now on the right lower extremity given left lower extremity with ulcers. DISPOSITION: Pending clinical improvement, likely will require skilled-nursing facility, given that the patient initially is to be signed out to Dr. Ellis but patient stated that he does not want to be followed by Dr. Ellis given he was previously discharged from Dr. Ellis's service for poor compliance, subsequently patient has been signed out to Dr. Barnard.
[2016-06-20 19:10] LABS: CALCIUM LEVEL 7.4 MG/DL (8.8-10.2); CREATININE FOR GFR 1.59 MG/DL (0.70-1.30); GLOMERULAR FILTRATION RATE 47.5 (>49); POTASSIUM SERUM 4.5 MEQ/L (3.5-5.1)
[2016-06-20 19:37] LABS: OSMOLALITY URINE 116 MOSM/KG (500-800)
[2016-06-20] MEDS: SENOKOT S TAB PO SCH (21:46)
[2016-06-21] VITALS: BP_SYST 110; BP_DIAS 53; BP_DIAS 58
[2016-06-21 02:36] LABS: CALCIUM LEVEL 7.9 MG/DL (8.8-10.2); CREATININE FOR GFR 1.66 MG/DL (0.70-1.30); GLOMERULAR FILTRATION RATE 45.2 (>49); POTASSIUM SERUM 4.4 MEQ/L (3.5-5.1)
[2016-06-21 04:01] VITALS: BP 125/58
[2016-06-21 05:20] LABS: MEAN CORPUSCULAR HEMOGLOBIN 30.5 pg (27.0-33.0); MEAN CORPUSCULAR HGB CONC 32.6 g/dl (32.0-36.5); MEAN CORPUSCULAR VOLUME 93.6 fl (80.0-96.0); WHITE BLOOD COUNT 8.6 K/mm3 (4.0-10.0)
[2016-06-21] MEDS: METOPROLOL TART 25 MG TABLET PO SCH ×3 (05:34→18:22)
[2016-06-21] MEDS: SLF 3 ML SYR IV SCH ×2 (05:34→12:35)
[2016-06-21 08:00] VITALS: BP 131/68
--- NOTE | 2016-06-21 08:10 | IPNPDOC ---
Date Seen The patient was seen on 06/21/16. Progress Note SUBJECTIVE: Mr. Eng is a 61-year-old male who is examined at bedside this morning. He states that he is feeling better and is not vomiting blood any more. He denies nausea and abdominal pain. He is yet to have a bowel movement. Urine output is adequate. Reports he is having some pain with swallowing soft diet. Have adjusted patient's diet back to clear liquid. Denies chest pain. OBJECTIVE PHYSICAL EXAMINATION: VITAL SIGNS: Please see below. GENERAL: Obese male lying supine in the hospital bed upon evaluation this morning, appears stated age, in no apparent distress HEENT: Atraumatic, normocephalic, PERRL, EOMI, oral mucosa appears pink and moist, poor dentition, posterior pharynx without erythema, nasal septum is midline, full thick [place] to[place] CARDIOVASCULAR: Regular rate and rhythm, normal S1 and S2, no murmur, rub, click ; PVCs noted on athletic monitor RESPIRATORY: Clear to auscultation bilaterally, adequate inspiratory and expiratory airway excursion, no wheeze, rhonchi, crackles ABDOMINAL: Round, soft, nontender, nondistended, diminished bowel sounds throughout EXTREMITIES: Moving all 4 extremities appropriately, peripheral pulses appreciated in the upper extremities bilaterally, equal, symmetrical, +2/4; left lower extremity with weeping ulcer with adequate blood supply present on the anterior leg proximal to the ankle, venous stasis skin changes appreciated on left foot and leg NEUROLOGICAL: Cranial nerves II through XII appear grossly intact PSYCHOLOGICAL: Mood and affect appear appropriate LABORATORY DATA: Please see below. MICROBIOLOGY: Please see below. DVT prophylaxis ordered?: TEDs ASSESSMENT AND PLAN: Mr. Eng is a 61-year-old male who presented with upper gastrointestinal bleed and hyponatremia. PROBLEMS: 1. Upper gastrointestinal bleed: Patient was evaluated by gastroenterology and an upper endoscopy was performed. Claudette-Turner tear was noted and a clip was placed. Also noted was esophagitis with mucosal sclerosis and erosive duodenoscopy. Recommendations included proton pump inhibitor by IV twice a day, Zofran 4 mg IV 4 times a day, clear liquid diet. Patient denies further nausea and vomiting. Patient also receiving Phenergan. Does report some pain with swallowing on a soft diet. Have adjusted patient's diet to clear liquids. We'll continue to monitor labs. H&H was 9 and 27.5, respectively. 2. Hyponatremia: Appears to be normalizing. This morning's sodium was 133. Nephrology has been following. They've recommended that urine studies can be discontinued. BMP is being scheduled for every 8 hours. Continue to appreciate nephrology's input. 3. Left lower extremity ulcer: Physical therapy evaluated ulcer. Wound care has recommended Vashe cleanser, foam dressing, Kerlix, Coban, and leg elevation. Patient remains on Rocephin and azithromycin. 4. Hypertension: Patient's blood pressures remained stable. Blood pressure is 125/58. Remains on metoprolol. 5. Benign prostatic hyperplasia: Patient remains on Flomax. Patient had negative fluid balance of 1480 mL over the last 24 hours. 6. Alcohol dependence: Patient continues with multivitamin, folic acid, thiamine. Has Serax at his disposal. No tremulousness noted at this time. 7. Morbid obesity: Patient's BMI is 45.7. Continue to monitor clinically. DISPOSITION: Patient's clinical picture appears to be normalizing. Sodium is 133. No further continued hematemesis. Remains on proton pump inhibitor, Zofran , and Phenergan. Leukocytosis resolved. Patient remains on Rocephin and azithromycin for left lower extremity ulcer. Transferring patient to the medical surgical unit. VS, I&O, 24H, [facility] Vital Signs/I&O Vital Signs Date Time Temp Pulse Resp B/P (MAP) Pulse Ox O2 Delivery O2 Flow Rate FiO2 06/21/16 04:01 97.1 83 18 125/58 (80) 100 Room Air 06/19/16 16:30 3.0 06/19/16 16:05 100 I&O- Last 24 Hours up to 6 AM 06/21/16 06:00 Intake Total 1780 ml Output Total 3500 ml Balance -1720 ml Laboratory Data 24H LABS Laboratory Tests 2 06/20/16 09:33: Urine Random Osmolality 96L, Urine Random Sodium 16 06/20/16 13:49: Anion Gap 6L, Glomerular Filtration Rate 48.9L, Blood Urea Nitrogen 22H, Creatinine 1.55H, Sodium Level 129L, Potassium Level 4.1, Chloride Level 100, Carbon Dioxide Level 23, Calcium Level 7.5L 06/20/16 18:01: Urine Random Osmolality 116L, Urine Random Sodium 12 06/20/16 18:24: Anion Gap 4L, Glomerular Filtration Rate 47.5L, Blood Urea Nitrogen 22H, Creatinine 1.59H, Sodium Level 128L, Potassium Level 4.5, Chloride Level 101, Carbon Dioxide Level 23, Calcium Level 7.4L 06/21/16 02:06: Anion Gap 5L, Glomerular Filtration Rate 45.2L, Blood Urea Nitrogen 23H, Creatinine 1.66H, Sodium Level 133L, Potassium Level 4.4, Chloride Level 102, Carbon Dioxide Level 26, Calcium Level 7.9L 06/21/16 05:03: Magnesium Level 2.4 CBC/BMP Laboratory Tests 06/20/16 13:49 Calcium Level 7.5 L 06/20/16 18:24 Calcium Level 7.4 L 06/21/16 02:06 Calcium Level 7.9 L 06/21/16 05:03 Red Blood Count 2.94 L, Mean Corpuscular Volume 93.6, Mean Corpuscular Hemoglobin 30.5, Mean Corpuscular Hemoglobin Concent 32.6, Red Cell Distribution Width 15.0 H Microbiology Microbiology 06/19/16 Blood Culture - Preliminary, Resulted No growth after 24 hours . All specim... 06/19/16 Blood Culture - Preliminary, Resulted No growth after 24 hours . All specim... 06/20/16 Gram Stain - Final, Resulted 06/20/16 Sputum Culture, Resulted Pending 06/19/16 Wound Culture, Received Pending CARMINE COCHRAN June 21, 2016 08:10
[2016-06-21] MEDS: BACLOFEN 10 MG TAB PO SCH (08:52)
[2016-06-21] MEDS: THIAMINE 100 MG TAB PO SCH (08:52)
[2016-06-21] MEDS: PANTOPRAZOLE 40MG INJ (PROTONIX) (C9113) IV SCH (08:52)
[2016-06-21] MEDS: MULTIVITAMINS/MINERALS THERAP 1 TAB PO SCH (08:52)
[2016-06-21] MEDS: PREGABALIN 75 MG CAP(LYRICA) PO SCH ×2 (08:52→21:34)
[2016-06-21] MEDS: NYSTATIN 100,000 UNITS/GM TOPICAL PWD 15 GM TOP SCH ×2 (08:53→21:34)
[2016-06-21] MEDS: FOLIC ACID 1 MG TAB PO SCH (08:53)
[2016-06-21] MEDS: TAMSULOSIN 0.4 MG CAP PO SCH (08:53)
[2016-06-21] MEDS ORDERED: AUGMENTIN 875 MG TAB GT SCH (09:00)
[2016-06-21] MEDS: PANTOPRAZOLE 40MG TAB (PROTONIX) PO SCH ×2 (09:00→21:34)
[2016-06-21] MEDS ORDERED: ACETAMINOPHEN 325 MG TAB PO PRN (09:45)
[2016-06-21] MEDS ORDERED: SODIUM CHLORIDE 0.9% 1000 ML IV ONE (11:00)
[2016-06-21 11:23] VITALS: BP 110/56
--- NOTE | 2016-06-21 12:29 | IPN ---
DATE: 06/21/2016 SUBJECTIVE: The patient was seen and examined at the bedside today in the morning. He feels better. He is hemodynamically stable. His sodium continues to improve. 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 He continues to have very good urine output. The patient is still on a liquid diet at this time. REVIEW OF SYSTEMS: The patient denies any fevers, chills, rigors, headache, chest pain, shortness of breath, nausea, vomiting. He does report decreased appetite. He denies any constipation or diarrhea. The rest of review of system is negative. OBJECTIVE: VITAL SIGNS: Temperature is 98.9 degrees Fahrenheit, blood pressure is 131/68, pulse is 79, respiratory rate of 18, saturating 100% on room air. INTAKE AND OUTPUT: Urine output recorded is 3.3 liters yesterday and 1.7 liters so far today since overnight. He is 1.4 liter negative yesterday and 1.3 liters negative so far today since overnight. Weight on the bed scale is 152.7 kg. PHYSICAL EXAMINATION: GENERAL: The patient is awake, alert, oriented times three, laying in bed, no apparent distress. HEAD AND NECK EXAMINATION: Extraocular muscles intact. Pupils equally round and reactive to light. Mucous membranes are moist. Neck is supple. There is no jugular venous distention (JVD). CARDIOVASCULAR: S1, S2, regular rate. No murmur, rub, and gallop. RESPIRATORY: Chest is clear to auscultation bilaterally. Bilateral equal air entry. No rales or rhonchi. ABDOMEN: Is soft, obese. Positive bowel sounds. No ascites. Fungal rash in the groin. GENITOURINARY: The patient has a Anderson catheter. Urine in the bag is pale yellow. EXTREMITIES: The patient has mild chronic venous stasis changes in bilateral lower extremities. The left leg is wrapped in a dressing. 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 He follows commands. PSYCHIATRIC: Normal mood and affect. SKIN: The patient has fungal rash in the groin and a leg ulcer on the left leg, which is wrapped in a dressing. LABORATORY REVIEW: CBC showed a WBC of 8.6, hemoglobin is 9, platelets are 148. BMP showed sodium 133, potassium 4.4, chloride 102, bicarbonate 26, BUN 23, creatinine is 1.66 and it was 1.59 yesterday, calcium is 7.9, magnesium is 2.4. CURRENT MEDICATIONS: The patient's medications were all reviewed by me. He continues to be on IV Rocephin and azithromycin. He was given another bolus of normal saline 500 mL times one dose. There is no other change in the medications today. ASSESSMENT: A 61-year-old male who was admitted to intensive care unit (ICU) with upper gastrointestinal (GI) bleeding and severe symptomatic hyponatremia. Nephrology service following the patient for management of hyponatremia and acute kidney injury. PLAN: 1. Hypotonic hyponatremia. The patient's sodium is gradually improving, latest sodium level is 133. Basic metabolic profile (BMP) has been changed to daily now. His urine osmolarity was appropriately low. No need of Samsca administration at this time. Sodium level will improve hopefully by tomorrow morning. 2. Upper gastrointestinal bleeding. The patient's upper GI bleeding is improved now. He is status post EGD and repair of Claudette-Turner tear. Hemoglobin is stable. Continue Protonix at this time. 3. Acute kidney injury. The patient's creatinine is slowly going up, most likely secondary to volume depletion and aquaresis that the patient is having. I have ordered another dose of normal saline 500 mL bolus times one dose. 4. Hypertension. Continue metoprolol with holding parameters. Once the patient is stable, his metoprolol dose can be changed to twice a day. 5. History of depression. The patient's fluoxetine is on hold because syndrome of inappropriate secretion of antidiuretic hormone. If needed, the patient can be given non selective serotonin reuptake inhibitors (SSRIs) antidepressant by primary team. The plan of care was discussed with the patient's RN at the bedside. ANU
[2016-06-21] MEDS: cefTRIAXone SOD 1 GM in D5W MINI-BAG PLUS 50 ML IV SCH (12:35)
[2016-06-21] MEDS ORDERED: ONDANSETRON 4 MG ORAL DISINTEGRATING TAB (S0181) PO PRN (14:15)
[2016-06-21 15:28] VITALS: BP 117/64
[2016-06-21] MEDS: AUGMENTIN 875 MG TAB PO SCH (21:33)
[2016-06-21] MEDS: SENOKOT S TAB PO SCH (21:33)
[2016-06-21 22:00] VITALS: BP 124/79
[2016-06-22] MEDS: METOPROLOL TART 25 MG TABLET PO SCH ×5 (00:19→23:28)
[2016-06-22 06:00] VITALS: BP 107/52
[2016-06-22 07:23] LABS: MEAN CORPUSCULAR HEMOGLOBIN 30.3 pg (27.0-33.0); MEAN CORPUSCULAR HGB CONC 32.4 g/dl (32.0-36.5); MEAN CORPUSCULAR VOLUME 93.4 fl (80.0-96.0); RED CELL DISTRIBUTION WIDTH 15.4 % (11.5-14.5); WHITE BLOOD COUNT 6.5 K/mm3 (4.0-10.0)
[2016-06-22 07:26] LABS: CALCIUM LEVEL 7.9 MG/DL (8.8-10.2); CREATININE FOR GFR 1.52 MG/DL (0.70-1.30); MAGNESIUM LEVEL 2.1 MG/DL (1.8-2.4); POTASSIUM SERUM 4.2 MEQ/L (3.5-5.1)
[2016-06-22] MEDS: PREGABALIN 75 MG CAP(LYRICA) PO SCH ×2 (09:24→20:40)
[2016-06-22] MEDS: AUGMENTIN 875 MG TAB PO SCH ×2 (09:24→20:40)
[2016-06-22] MEDS: THIAMINE 100 MG TAB PO SCH (09:25)
[2016-06-22] MEDS: NYSTATIN 100,000 UNITS/GM TOPICAL PWD 15 GM TOP SCH ×2 (09:25→20:40)
[2016-06-22] MEDS: MULTIVITAMINS/MINERALS THERAP 1 TAB PO SCH (09:25)
[2016-06-22] MEDS: FOLIC ACID 1 MG TAB PO SCH (09:25)
[2016-06-22] MEDS: BACLOFEN 10 MG TAB PO SCH (09:25)
[2016-06-22] MEDS: TAMSULOSIN 0.4 MG CAP PO SCH (09:25)
[2016-06-22] MEDS: PANTOPRAZOLE 40MG TAB (PROTONIX) PO SCH ×2 (09:25→20:40)
[2016-06-22] MEDS: NYSTATIN 500,000 U/5 ML SUSP UDC SS SCH ×3 (11:41→23:27)
--- NOTE | 2016-06-22 11:42 | IPNPDOC ---
Date Seen The patient was seen on 06/22/16. Progress Note SUBJECTIVE: Mr. Eng is a 61-year-old male evaluated bedside this morning. States that he is feeling much better. Physical therapy attempted to work with him, however he stated that he has a wheelchair at home which will be brought in this evening for assistance with physical therapy. Patient denies hemoptysis, melena, hematochezia. Reports a desire to progress his diet. Denies further complaints of difficulty swallowing secondary to pain. Is passing flatus. Discussed rehabilitation following discharge from hospital. Patient states that he would prefer to have in-home rehabilitation, but if that was not possible that he would prefer to stay within the [facility] at either subacute rehabilitation or [facility]. Will discuss with patient and family services. OBJECTIVE PHYSICAL EXAMINATION: VITAL SIGNS: Please see below. GENERAL: Morbidly obese male resting comfortably in hospital bed upon evaluation this morning, appears stated age, in no apparent distress HEENT: Atraumatic, normocephalic, PERRL, EOMI, full [place], nasal septum appears midline, nares are patent, poor dentition, oral mucosa appears pink and moist CARDIOVASCULAR: Regular rate and rhythm, normal S1 and S2, no murmur, rub, click RESPIRATORY: Clear to auscultation bilaterally, adequate inspiratory and expiratory airway excursion, no wheeze, rhonchi, crackles ABDOMINAL: Round, soft, nontender, nondistended, bowel sounds appreciated EXTREMITIES: Moving all 4 extremities appropriately, upper and lower extremity pulses appreciated bilaterally, equal, symmetrical, +2/4; left lower leg wound ulcer is wrapped; venous stasis skin changes noted over the feet NEUROLOGICAL: Cranial nerves II through XII grossly intact PSYCHOLOGICAL: Mood and affect appear appropriate LABORATORY DATA: Please see below. MICROBIOLOGY: Please see below. DVT prophylaxis ordered?: TEDs and sequentials ASSESSMENT AND PLAN: Mr. Eng is a 61-year-old male who presented with upper gastrointestinal bleed and hyponatremia. PROBLEMS: 1. Upper gastrointestinal bleed: Patient has no further complaints of hemoptysis. Hemoglobin and hematocrit 8.1 and 25, respectively. Patient has been consented and typed and screened to receive 1 unit of packed red blood cells. Patient's diet has been progress to soft diet to include yogurt, Jell-O, and pudding. Patient denies further difficulty swallowing secondary to pain. Continue with Protonix and Zofran. Continue to monitor daily labs. 2. Hyponatremia: Sodium is normalized to 139. BMP will be monitored daily. Continue to appreciate nephrology's input. 3. Left lower extremity ulcer: Wound care has recommended Vashe cleanser, foam dressing, Kerlix, Coban, and leg elevation. Patient remains on Rocephin and azithromycin. Physical therapy evaluate patient. 4. Hypertension: Patient's blood is 107/52. Patient will be receiving 1 unit of blood today which should alleviate his low blood pressure. Continue with metoprolol with hold parameters. 5. Benign prostatic hyperplasia: Patient remains on Flomax. Patient had negative fluid balance of 295 mL over the last 24 hours. 6. Alcohol dependence: Patient continues with multivitamin, folic acid, thiamine. Has Serax at his disposal. No tremulousness noted at this time. 7. Morbid obesity: Patient's BMI is 45.7. Continue to monitor clinically. DISPOSITION: Patient will be receiving 1 unit of blood today secondary to continued decrease in hemoglobin and hematocrit. Sodium has normalized 139. Patient remains on antibiotics for left lower extremity wound ulcer. Await physical therapy's assessment. Need to discuss with patient and family services regarding patient's further subacute rehabilitation. VS, I&O, 24H, Fishbone Vital Signs/I&O Vital Signs Date Time Temp Pulse Resp B/P (MAP) Pulse Ox O2 Delivery O2 Flow Rate FiO2 06/22/16 06:00 79 107/52 06/22/16 06:00 97.9 15 95 Room Air 06/19/16 16:30 3.0 06/19/16 16:05 100 I&O- Last 24 Hours up to 6 AM 06/22/16 06:00 Intake Total 3630 ml Output Total 2925 ml Balance 705 ml Laboratory Data 24H LABS Laboratory Tests 2 06/22/16 06:37: Anion Gap 7L, Glomerular Filtration Rate 50.0, Blood Urea Nitrogen 17, Creatinine 1.52H, Sodium Level 139, Potassium Level 4.2, Chloride Level 106, Carbon Dioxide Level 26, Calcium Level 7.9L, Magnesium Level 2.1 CBC/BMP Laboratory Tests 06/22/16 06:34 Red Blood Count 2.68 L, Mean Corpuscular Volume 93.4, Mean Corpuscular Hemoglobin 30.3, Mean Corpuscular Hemoglobin Concent 32.4, Red Cell Distribution Width 15.4 H 06/22/16 06:37 Calcium Level 7.9 L Microbiology Microbiology 06/19/16 Blood Culture - Preliminary, Resulted No Growth after 48 hours. All Specime... 06/19/16 Blood Culture - Preliminary, Resulted No Growth after 48 hours. All Specime... 06/20/16 Gram Stain - Final, Resulted 06/20/16 Sputum Culture, Resulted Pending 06/19/16 Wound Culture, Received Pending CARMINE COCHRAN June 22, 2016 11:42
--- NOTE | 2016-06-22 13:04 | IPN ---
DATE: 06/22/2016 SUBJECTIVE: The patient was seen and examined at the bedside today in the morning. He feels much better. He is awake, alert and oriented. His sodium level is normalized now. His renal function is also improving. REVIEW OF SYSTEMS: The patient denies any fevers, chills, rigors, headache, nausea, vomiting, chest pain, shortness of breath, pain in abdomen, constipation, or diarrhea. He still reports that he is unable to walk around and patient is bed bound at this time. The rest of the review of systems is negative. OBJECTIVE: VITAL SIGNS: Temperature 97.9 degrees Fahrenheit. Blood pressure 107/52. Pulse 79. Respiratory rate 15. Saturating 95% on room air. INTAKE AND OUTPUT: Urine output recorded as 3.2 liters yesterday, 650 mL so far today since overnight. Weight on the bed scale is not available today. PHYSICAL EXAMINATION: GENERAL: Patient is awake, alert and oriented times three, laying in bed in no apparent distress. HEAD AND NECK EXAM: Extraocular muscles intact. Pupils equally round and reactive to light. Mucous membranes are moist. Neck is supple. There is no jugular venous distention (JVD). The patient has oral thrush. CARDIOVASCULAR: S1, s2, regular rate. No murmur, rub or gallop. RESPIRATORY: Chest is clear to auscultation bilaterally. Bilateral equal air entry. No rales or rhonchi. ABDOMEN: Soft. Obese. Positive bowel sounds. No ascites. The patient has a persistent fungal rash in the groin. GENITOURINARY: Patient has an indwelling Anderson catheter. Urine in the bag is clear. EXTREMITIES: The patient has chronic venous stasis changes of the bilateral lower extremities, otherwise there is no edema of the extremities. The left leg is wrapped in a dressing. CENTRAL NERVOUS SYSTEM (PST MANAGER): No focal neurological deficit. He follows commands. SKIN: Patient has a fungal rash in the groin and a leg ulcer on the left leg. LAB REVIEW: CBC shows a WBC of 6.5, hemoglobin 8.1, and platelets of 140. BMP showed sodium 139, potassium 4.2, chloride 106, bicarbonate 26, BUN 17, creatinine 1.5 (it was 1.6 yesterday), calcium 7.9, magnesium 2.1. CURRENT MEDICATIONS: The patient's medications are all reviewed by me. His IV antibiotics have been stopped. He is currently on Augmentin 875 mg by mouth twice a day. His IV Protonix has been stopped and he has been switched to Protonix 40 mg by mouth twice a day. There is no other change in the medications today. ASSESSMENT: 61-year-old male who was initially admitted to the intensive care unit (ICU) with gastrointestinal (GI) bleeding and severe symptomatic hyponatremia. The patient has been downgraded from the ICU. Sodium level is improving now. PLAN: 1. Hypotonic hyponatremia. The patient's sodium level is significantly better. It is 139 today. 2. Acute kidney injury. It is most likely secondary to volume depletion. The patient was given another dose of normal saline bolus yesterday. Creatinine came down from 1.6 to 1.52. Continue to encourage oral hydration. No need of IV fluids at this time. 3. Acute upper GI bleeding. Upper GI bleeding has improved now. He is status post esophagogastroduodenoscopy (EGD) and repair of Claudette-Turner tear. Diet is being advanced at this time. Protonix has been switched to by mouth. 4. Hypertension. Blood pressure is acceptable at this time. Continue the metoprolol with holding parameters.
[2016-06-22] MEDS: SENOKOT S TAB PO SCH (20:40)
[2016-06-22 22:00] VITALS: BP 121/60
[2016-06-23] MEDS: METOPROLOL TART 25 MG TABLET PO SCH ×4 (05:32→23:47)
[2016-06-23] MEDS: NYSTATIN 500,000 U/5 ML SUSP UDC SS SCH ×4 (05:32→23:47)
[2016-06-23 06:00] VITALS: BP 118/71
[2016-06-23 06:49] LABS: CALCIUM LEVEL 7.5 MG/DL (8.8-10.2); CREATININE FOR GFR 1.61 MG/DL (0.70-1.30); GLOMERULAR FILTRATION RATE 46.8 (>49); MAGNESIUM LEVEL 1.6 MG/DL (1.8-2.4); POTASSIUM SERUM 4.2 MEQ/L (3.5-5.1)
[2016-06-23 06:52] LABS: MEAN CORPUSCULAR HEMOGLOBIN 30.3 pg (27.0-33.0); MEAN CORPUSCULAR VOLUME 91.8 fl (80.0-96.0); RED CELL DISTRIBUTION WIDTH 15.5 % (11.5-14.5); WHITE BLOOD COUNT 5.7 K/mm3 (4.0-10.0)
[2016-06-23] MEDS ORDERED: MAG SULF 1GM/100ML (MAG RUN) 1 GM in APPROPRIATE DILUENT 1 EA IV ONE (08:45)
[2016-06-23] MEDS: NYSTATIN 100,000 UNITS/GM TOPICAL PWD 15 GM TOP SCH ×2 (09:00→20:17)
[2016-06-23] MEDS: TAMSULOSIN 0.4 MG CAP PO SCH (09:12)
[2016-06-23] MEDS: PREGABALIN 75 MG CAP(LYRICA) PO SCH ×2 (09:12→20:17)
[2016-06-23] MEDS: AUGMENTIN 875 MG TAB PO SCH ×2 (09:13→20:17)
[2016-06-23] MEDS: MULTIVITAMINS/MINERALS THERAP 1 TAB PO SCH (09:13)
[2016-06-23] MEDS: THIAMINE 100 MG TAB PO SCH (09:13)
[2016-06-23] MEDS: FOLIC ACID 1 MG TAB PO SCH (09:13)
[2016-06-23] MEDS: PANTOPRAZOLE 40MG TAB (PROTONIX) PO SCH ×2 (09:13→20:17)
[2016-06-23] MEDS: BACLOFEN 10 MG TAB PO SCH (09:13)
--- NOTE | 2016-06-23 09:52 | IPNPDOC ---
Date Seen The patient was seen on 06/23/16. Progress Note SUBJECTIVE: Mr. Eng is a 61 year old male examined at bedside this morning. Nurse and practical nursing faculty were present in the room at time of evaluation. Patient states that he is eating a regular diet. It still causes some pain with swallowing, but nothing that appears to prevent him from maintaining the regular diet. Denies hemoptysis. Negative fluid balance overnight of 500 mL. Mild increase in creatinine. Per nephrology recommendation, provide some fluid rehydration and monitor creatinine. Magnesium was diminished. Will provide replenishment. Patient awaits physical therapy evaluation. Transportation will need to be cancelled secondary to patient remaining hospitalized secondary to urine output and mild worsening of creatinine. OBJECTIVE PHYSICAL EXAMINATION: VITAL SIGNS: Please see below. GENERAL: Obese male resting comfortably in hospital bed upon evaluation this morning, appears stated age, in no apparent distress HEENT: Atraumatic, normocephalic, PERRL, EOMI, full [place], nasal septum appears midline CARDIOVASCULAR: Regular rate and rhythm, normal S1 and S2, no murmur, click, rub appreciated RESPIRATORY: Clear to auscultation bilaterally, adequate inspiratory and expiratory airway excursion, no wheeze, rhonchi, crackles appreciated ABDOMINAL: Round, soft, non-tender, non-distended, bowel sounds appreciated EXTREMITIES: Moving all four extremities appropriately, TEDs and sequentials in place, no peripheral edema appreciated, upper and lower extremity pulses appreciated bilaterally, equal, symmetrical, +2/4 NEUROLOGICAL: CN II-XII appear grossly intact PSYCHOLOGICAL: Mood and affect appear appropriate LABORATORY DATA: Please see below. MICROBIOLOGY: Please see below. DVT prophylaxis ordered?: TEDs and sequentials ASSESSMENT AND PLAN: Mr. Eng is a 61-year-old male who presented with upper gastrointestinal bleed and hyponatremia. PROBLEMS: 1. Upper gastrointestinal bleed: Patient has no further complaints of hemoptysis. Hemoglobin and hematocrit 9.4 and 28.4, respectively. Patient received 1 unit blood transfusion yesterday without any acute problems experienced. Patient has progressed to regular diet. Continue to monitor daily labs. 2. Hypomagnesemia: Patient's magnesium this morning was 1.6. Have provided supplementation. 3. Acute kidney injury: Patient's BUN and creatinine are 17 and 1.61, respectively. Nephrology have recommended some gentle fluid rehydration and monitoring the creatinine for improvement. 3. Left lower extremity ulcer: Wound care has recommended Vashe cleanser, foam dressing, Kerlix, Coban, and leg elevation. Wound culture reported Pseudomonas aeruginosa, MRSA, and Enterococcus faecalis. Without surrounding cellulitis, leukocytosis, or fever this is likely colonization of the wound and does not need to treated with antibiotics. Could consider discontinuing oral Augmentin tomorrow. 4. Hypertension: Patient's blood is 118/71. Continue with metoprolol with hold parameters. 5. Benign prostatic hyperplasia: Patient remains on Flomax. Patient had negative fluid balance of 500 mL over the last 24 hours. Per nephrology, will provide some gentle fluid rehydration and monitor creatinine. 6. Alcohol dependence: Patient continues with multivitamin, folic acid, thiamine. Has Serax at his disposal. No tremulousness noted at this time. 7. Morbid obesity: Patient's BMI is 45.7. Continue to monitor clinically. DISPOSITION: Patient's H/H improved after the 1 unit of blood transfused yesterday. Has progressed to regular diet without acute incident. Remains on oral antibiotics for left lower extremity wound ulcer. Culture results have returned and indicate colonization with no other associated symptoms such as fever, leukocytosis, or cellulitis present. Physical therapy to evaluate patient today. Remain hospitalized currently secondary to mild worsening of creatinine and negative fluid balance. Providing gentle rehydration and to monitor creatinine. Magnesium was low. Replenishment has been provided. Possible discharge to alf for continued rehabilitation in the next 24- 48 hours. VS, I&O, 24H, Fishbone Vital Signs/I&O Vital Signs Date Time Temp Pulse Resp B/P (MAP) Pulse Ox O2 Delivery O2 Flow Rate FiO2 06/23/16 06:00 97.3 76 18 118/71 (87) 94 Room Air 06/19/16 16:30 3.0 06/19/16 16:05 100 I&O- Last 24 Hours up to 6 AM 06/23/16 06:00 Intake Total 2040 ml Output Total 2725 ml Balance -685 ml Laboratory Data 24H LABS Laboratory Tests 2 06/23/16 06:06: Anion Gap 9, Glomerular Filtration Rate 46.8L, Blood Urea Nitrogen 17, Creatinine 1.61H, Sodium Level 140, Potassium Level 4.2, Chloride Level 106, Carbon Dioxide Level 25, Calcium Level 7.5L, Magnesium Level 1.6L CBC/BMP Laboratory Tests 06/22/16 19:27 06/23/16 06:06 Red Blood Count 3.09 L, Mean Corpuscular Volume 91.8, Mean Corpuscular Hemoglobin 30.3, Mean Corpuscular Hemoglobin Concent 33.0, Red Cell Distribution Width 15.5 H, Calcium Level 7.5 L Microbiology Microbiology 06/19/16 Blood Culture - Preliminary, Resulted No Growth after 72 hours. All specime... 06/19/16 Blood Culture - Preliminary, Resulted No Growth after 72 hours. All specime... 06/20/16 Gram Stain - Final, Resulted 06/20/16 Sputum Culture, Resulted Pending 06/19/16 Wound Culture - Final, Complete Pseudomonas Aeruginosa Staph.aureus Methicillin Resis Enterococcus Faecalis CARMINE COCHRAN-Yogesh June 23, 2016 09:52
[2016-06-23] MEDS: NS 1,000 ML IV SCH ×2 (10:02→23:47)
[2016-06-23] MEDS ORDERED: CALCIUM GLUCONATE 1,000 MG in D5W MINI-BAG PLUS 100 ML IV ONE (10:15)
--- NOTE | 2016-06-23 13:20 | IPN ---
DATE OF SERVICE: 06/23/2016 SUBJECTIVE: The patient was seen and examined at the bedside today in the morning. The patient denies any active complaints. His sodium level is stable. However, his creatinine continues to trend up. The patient has very good urine output; and actually, he is in negative fluid balance for the last few days. REVIEW OF SYSTEMS: The patient denies any fevers, chills, rigors, headache, nausea, vomiting, chest pain, shortness of breath, pain abdomen, constipation, or diarrhea. He does report persistent left leg ulcer and weakness and inability to walk. The rest of review of system is negative. OBJECTIVE: VITAL SIGNS: Temperature is 97.3 degrees Fahrenheit, blood pressure is 118/71, pulse is 76, respiratory rate of 18, saturating 94% on room air. INTAKE AND OUTPUT: Urine output recorded is 2.9 liters yesterday and 475 mL so far today since overnight. Weight in the bed scale is not available today. PHYSICAL EXAMINATION: GENERAL: The patient is morbidly obese, laying in the bed, no apparent distress. HEAD AND NECK EXAMINATION: Extraocular muscles intact. Pupils equally round and reactive to light. Mucous membranes are moist. Neck is supple. There is no jugular venous distention (JVD). Oral thrush is resolving. CARDIOVASCULAR: S1, S2, regular rate. No murmur, rub, and gallop. RESPIRATORY: Chest is clear to auscultation bilaterally. Bilateral equal air entry. No rales or rhonchi. ABDOMEN: Is obese, soft. Positive bowel sounds. There is no organomegaly. No ascites. A rash in the groin is healing. GENITOURINARY: The patient has an indwelling Anderson catheter. Urine in the bag is clear. EXTREMITIES: The patient has chronic venous stasis changes at the bilateral lower extremities. His left leg is wrapped in a dressing. 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 He follows commands. LABORATORY REVIEW: CBC showed a WBC of 5.7, hemoglobin is 9.4, platelets are 140. BMP showed sodium 140, potassium 4.2, chloride 106, bicarbonate 25, BUN 17, creatinine is 1.61. It is higher than yesterday. It was 1.52 yesterday. Calcium is 7.5, magnesium is 1.6. MICROBIOLOGY: Wound culture done on 06/19/2016 is growing pseudomonas Staphylococcus aureus. It is methicillin resistant and Enterococcus faecalis. CURRENT MEDICATIONS: The patient is going to get a dose of calcium gluconate 1 gram intravenous (IV) times one dose, magnesium sulfate 1 gram IV times one dose, and he has been started on normal saline at 75 mL an hour. He is currently on augmentin. There is no other change in the medications today. ASSESSMENT: A 61-year-old male who was initially admitted to intensive care unit (ICU) with gastrointestinal (GI) bleeding and severe symptomatic hyponatremia. The patient is currently stable, but his renal function continues to deteriorate. Hyponatremia has improved. PLAN: 1. Acute kidney injury. The patient's creatinine continues to climb up. It was 1.6 today morning. The patient's creatinine on admission was 1.2. Part of the bump in creatinine might be secondary to aquaresis that the patient had after his hyponatremia improved. The patient is in negative fluid balance in the last many days. He has been started on intravenous (IV) normal saline at 75 mL an hour. Renal function is expected to improve with IV fluid administration. 2. Hypomagnesemia. The patient is getting magnesium sulfate 1 gram IV times one dose. 3. Hypocalcemia. The patient will get a dose of calcium gluconate 1 gram IV times one dose. 4. Hyponatremia. The patient's sodium has improved to 140. No further management is required. The plan of care was discussed with the hospitalist team, Dr. Bryant Barnard. If the patient's renal function improves by tomorrow, then he should be able to be discharged to senior living.
[2016-06-23 14:00] VITALS: BP 136/75
[2016-06-23] MEDS ORDERED: BISACODYL 10 MG SUPP PR PRN (18:15)
[2016-06-23] MEDS: SENOKOT S TAB PO SCH (20:17)
[2016-06-23 22:00] VITALS: BP 144/71
[2016-06-24] MEDS: NYSTATIN 500,000 U/5 ML SUSP UDC SS SCH ×2 (05:10→11:57)
[2016-06-24] MEDS: METOPROLOL TART 25 MG TABLET PO SCH ×2 (05:11→11:55)
[2016-06-24 06:00] VITALS: BP 132/96
[2016-06-24 06:12] LABS: MEAN CORPUSCULAR HEMOGLOBIN 30.5 pg (27.0-33.0); MEAN CORPUSCULAR VOLUME 92.3 fl (80.0-96.0); RED CELL DISTRIBUTION WIDTH 15.3 % (11.5-14.5); WHITE BLOOD COUNT 5.5 K/mm3 (4.0-10.0)
[2016-06-24 06:21] LABS: CALCIUM LEVEL 7.6 MG/DL (8.8-10.2); CREATININE FOR GFR 1.45 MG/DL (0.70-1.30); GLOMERULAR FILTRATION RATE 52.8 (>49); MAGNESIUM LEVEL 1.7 MG/DL (1.8-2.4); POTASSIUM SERUM 4.2 MEQ/L (3.5-5.1)
[2016-06-24] MEDS: MAG SULF 1GM/100ML (MAG RUN) 1 GM in APPROPRIATE DILUENT 1 EA IV SCH ×2 (07:51→08:52)
[2016-06-24] MEDS ORDERED: CALCIUM GLUCONATE 1,000 MG in D5W MINI-BAG PLUS 100 ML IV ONE (08:00)
[2016-06-24] MEDS: AUGMENTIN 875 MG TAB PO SCH (08:52)
[2016-06-24] MEDS: FOLIC ACID 1 MG TAB PO SCH (08:52)
[2016-06-24] MEDS: THIAMINE 100 MG TAB PO SCH (08:52)
[2016-06-24] MEDS: TAMSULOSIN 0.4 MG CAP PO SCH (08:53)
[2016-06-24] MEDS: MULTIVITAMINS/MINERALS THERAP 1 TAB PO SCH (08:53)
[2016-06-24] MEDS: PANTOPRAZOLE 40MG TAB (PROTONIX) PO SCH (08:53)
[2016-06-24] MEDS: NYSTATIN 100,000 UNITS/GM TOPICAL PWD 15 GM TOP SCH (08:53)
[2016-06-24] MEDS: BACLOFEN 10 MG TAB PO SCH (08:53)
[2016-06-24] MEDS: PREGABALIN 75 MG CAP(LYRICA) PO SCH (09:00)
[2016-06-24] MEDS ORDERED: MAGNESIUM OXIDE 400 MG TAB (MAG-OX) PO SCH (09:00)
[2016-06-24] MEDS ORDERED: AUGM875T27 PO (10:01)
[2016-06-24 11:55] VITALS: BP 119/72
[2016-06-24] MEDS ORDERED: MAGN400C3 PO (17:40)
--- NOTE | 2016-06-24 18:02 | IPN ---
DATE: 06/24/2016 SUBJECTIVE: The patient was seen and examined at the bedside today in the morning. He is awake and alert. His renal function is significantly better with intravenous (IV) fluid administration yesterday. However, he does have a slightly low magnesium level. REVIEW OF SYSTEMS: The patient denies any fevers, chills, rigors, headaches, nausea, vomiting, chest pain, shortness of breath, pain abdomen, constipation, or diarrhea. Rest of review of systems is negative. OBJECTIVE: VITAL SIGNS: Temperature is 98.3 degrees Fahrenheit, blood pressure is 132/96, pulse is 72, respiratory rate of 18, saturating 97% on room air. INTAKE AND OUTPUT: Urine output recorded as three liters yesterday, 600 mL so far today since overnight. PHYSICAL EXAMINATION: GENERAL: The patient is awake, alert, and oriented times three. He is morbidly obese, lying in bed in no apparent distress. HEAD/NECK: Extraocular muscles intact. Pupils equal, round, and reactive to light. Mucous membranes are moist. Neck is supple. There is no jugular venous distention (JVD). CARDIOVASCULAR: S1, S2, regular rate. No murmur, rub, or gallop. RESPIRATORY: Chest is clear to auscultation bilaterally. Bilateral equal air entry. No rales or rhonchi. ABDOMEN: Soft, obese. Positive bowel sounds. Nontender. No organomegaly. GENITOURINARY: The patient has an indwelling Anderson catheter. Urine in the bag is clear. EXTREMITIES: No clubbing or cyanosis. The patient has chronic venous stasis changes, and he has a dressing on the left leg. CENTRAL NERVOUS SYSTEM (MANAGER BUSINESS): No focal neurological deficit. LABORATORY DATA: CBC showed a WBC of 5.5, hemoglobin 9.5, platelets of 132. BMP showed sodium 141, potassium 4.2, chloride 107, bicarbonate 25, BUN 16, creatinine 1.45, it was 1.6 yesterday. Calcium is 7.6, magnesium is 1.7. CURRENT MEDICATIONS: The patient's medications were all reviewed by me. His IV fluids have been stopped this morning. He is getting calcium gluconate 1 gram IV today, and magnesium sulfate 1 gram IV today as well. The patient has been started on magnesium oxide 400 mg by mouth twice a day. ASSESSMENT: A 61-year-old male who is morbidly obese, initially admitted with severe symptomatic hyponatremia and upper gastrointestinal (GI) bleeding. PLAN: 1. Hyponatremia. It is resolved. At this time sodium is stable. 2. Acute kidney injury. Patient was slightly volume depleted and was given IV fluid hydration. Creatinine is coming down to 1.4 today. The patient was encouraged to take oral liquids. IV fluids have been stopped. 3. Hypomagnesemia. The patient is getting IV magnesium sulfate. The patient has been started on oral magnesium oxide 400 mg by mouth twice a day as well. 4. Hypocalcemia. The patient is getting another dose of calcium gluconate 1 gram IV today. DISCHARGE PLANNING: It is okay to discharge the patient from a nephrology standpoint. He should followup in nephrology office about two weeks after discharge. He can either followup with us or with a legal operations manager in [place].
--- NOTE | 2016-06-24 20:04 | DS.PDOC ---
Discharge Summary General Date of Admission Jun 18, 2016 at 22:31 Date of Discharge 06/24/2016 Primary Care Physician: Sirisha Campos Attending Physician: ALEX LOVE MD Specialist/Consultants Involve: BRITANY JOVEL MD Specialist/Consultants Involve Nephrology: Dr. 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 Clips (MR conditional) were placed. - Severe esophagitis with mucosal sclerosis. - Normal stomach. Biopsied. - Erosive duodenopathy without bleeding. ADMITTING DIAGNOSES: 1. Hyponatremia. 2. Suspected upper gastrointestinal bleed. 3. Lactic acidosis. Or. Left lower extremity wound ulcer. DISCHARGE DIAGNOSES: 1. Hyponatremia. 2. Upper Gastrointestinal bleed. 3. Lactic acidosis 4. Acute kidney injury. 5. Hypomagnesemia. 6. Hypercalcemia. 7. Left lower extremity wound ulcer. COMPLICATIONS/CHIEF COMPLAINT: Hyponatremia, Upper GI Bleed. HISTORY OF PRESENT ILLNESS: Mr. Eng is 61-year-old who had been admitted to [facility] from his last discharge on December 03, 2014 until June 13, 2016. He had been followed at a wound clinic down there, but apparently wanted to "get out of there" and was discharged on 06/13 to his home in [facility] where he is living alone. At home he began drinking beer for the first time in many months. He developing vomiting after two days. He had multiple episodes of vomiting without any abdominal pain. He was unable to take solid foods and was drinking a lot of liquid and he drank and 18 pack of beer in five days. He felt sweaty and developed vomiting of coffee ground emesis over the last two days. He has never had endoscopy. He did begin to have some epigastric discomfort that was worse with vomiting. His last bowel movement was Monday. HOSPITAL COURSE: Patient was admitted to hospitalist service. Urine and serum osmolality, urine sodium levels, TSH, and cortisol levels were obtained. The patient was on medications that can cause syndrome of inappropriate secretion of antidiuretic hormone (SIADH) and also on diuretics which were held. Nephrology was consulted for assistance in the management of the hyponatremia. Initially initiated hypertonic saline and transitioned to a couple normal saline boluses. Serially monitored BMPs as well as urine osmolality and urine sodium until normalization of hyponatremia. Most likely a combination of a tea and toast diet and beer potomania. Suspected upper GI bleed, possibly related to gastritis. Coffee ground emesis was tested to be Gastroccult positive and does not seem to be profuse blood loss although it does seem to be persistent vomiting. Treated nausea and consulted general surgery who performed upper endoscopy with reported listed above. Recommendations for management included proton pump inhibitor intravenously twice a day, Zofran 4 mg 4 times a day for the first 24 hours and then when necessary thereafter, a clear liquid diet. Diet progressed appropriately as needed. Chronic left lower extremity ulcer was managed appropriately with Vashe cleanser, foam dressing, Kerlix, Coban and as well as leg elevation. Rocephin was added for leukocytosis. Azithromycin was admitted for subjective cough. Patient was transitioned to oral Augmentin for an overall total antibiotic coverage for 5 days. Renewed alcohol abuse was managed appropriately with multivitamin, thiamine, folic acid, and Serax as needed. Patient received 1 unit blood transfusion secondary to anemia. Patient stabilized after that point, although he still remained anemic. Patient had hypoalbuminemia with a normal total protein. Could consider outpatient follow- up and further diagnostic workup. Elevated lactic acid level, most likely related to vomiting. Resolved. Some mild acute kidney injury developed with mild increase in patient's creatinine. Intravenous fluids resuscitation and 75 mLs per hour with provided. Patient's creatinine did improve. Patient also developed hypomagnesemia and hypocalcemia for which supplementation was provided. Patient was also discharged with magnesium oxide 400 mg twice a day supplementation. TEDs and sequentials with compression stockings provided for DVT prophylaxis. Patient made appropriate and adequate progress throughout hospitalization and was stable at time of discharge. DISCHARGE MEDICATIONS: Please see below. ALLERGIES: Please see below. PHYSICAL EXAMINATION ON DISCHARGE: VITAL SIGNS: Please see below. GENERAL: Obese male laying comfortably in hospital bed upon evaluation , well-nourished, well-developed, no apparent distress HEENT: Atraumatic, normocephalic, PERRL, EOMI, oral mucosa appears pink and moist, nasal septum appears midline, full [place] NECK: Supple, soft, trachea midline, no lymphadenopathy appreciated CARDIOVASCULAR EXAMINATION: Regular rate and rhythm, normal S1 and S2, no murmur , rub, click appreciated RESPIRATORY EXAMINATION: Clear to auscultation bilaterally, adequate inspiratory and 20 airway excursion, no wheeze, rhonchi, crackles appreciated ABDOMINAL EXAMINATION: Round, soft, nontender, nondistended, bowel sounds appreciated EXTREMITIES: Moving all 4 extremities appropriately; upper extremity pulses appreciated, equal, symmetrical, +2/4; right lower extremity peripheral pulses appreciated, equal, symmetrical, +2/4; left lower extremity with wound ulcer over the anterior portion of the lower leg that extends around the posterior portion proximal to the ankle without eschar, bandage clean dry and intact SKIN: Wound ulcer noted over the left lower extremity proximal to the ankle that extends around the posterior portion of the leg without eschar NEUROLOGICAL EXAMINATION: Cranial nerves II through XII appear grossly intact PSYCHIATRIC EXAMINATION: Mood and affect appear appropriate LABORATORY DATA: Please see below. IMAGING: Duplex ultrasound of the bilateral lower extremities IMPRESSION: No evidence of DVT in the lower extremities bilaterally. CT of the abdomen and pelvis with IV contrast only IMPRESSION: 1. Limited examination due to technical factors and motion artifact. 2. Bibasilar atelectasis and chronic pulmonary parenchymal changes. 3. Cholelithiasis without CT evidence for acute cholecystitis. 4. Renal cysts and possible right complex renal cyst/mass at the inferior pole requiring ultrasound evaluation. Chest x-ray IMPRESSION: No acute disease. PROGNOSIS: Stable ACTIVITY: Wheelchair. DIET: 2 g sodium. DISCHARGE PLAN: See discharge instructions DISPOSITION: [facility]. DISCHARGE INSTRUCTIONS: 1. Appropriately dressed and maintain left lower extremity wound ulcer. 2. PT evaluation and treatment. 3. Hold diuretics until acute kidney injury results. 4. Follow-up with BMP, creatinine at time of discharge 1.4, baseline creatinine 1.3. ITEMS TO FOLLOWUP ON ON OUTPATIENT: 1. Dr. Turcios on 07/15/2016 at 3 PM. 2. Primary care provider in 5-7 days. DISCHARGE CONDITION: Stable. TIME SPENT ON DISCHARGE: Greater than 45 minutes. Vital Signs/I&Os Vital Signs Date Time Temp Pulse Resp B/P (MAP) Pulse Ox O2 Delivery O2 Flow Rate FiO2 06/24/16 11:55 64 119/72 06/24/16 09:00 Room Air 06/24/16 06:00 98.3 18 97 06/19/16 16:30 3.0 06/19/16 16:05 100 I&O- Last 24 Hours up to 6 AM 06/24/16 06:00 Intake Total 3540 ml Output Total 3275 ml Balance 265 ml Laboratory Data Labs 24H Laboratory Tests 2 06/24/16 05:25: Anion Gap 9, Glomerular Filtration Rate 52.8, Blood Urea Nitrogen 16, Creatinine 1.45H, Sodium Level 141, Potassium Level 4.2, Chloride Level 107, Carbon Dioxide Level 25, Calcium Level 7.6L, Magnesium Level 1.7L 06/24/16 08:48: Parathyroid Hormone (Intact) 32.5 CBC/BMP Laboratory Tests 06/24/16 05:25 Red Blood Count 3.10 L, Mean Corpuscular Volume 92.3, Mean Corpuscular Hemoglobin 30.5, Mean Corpuscular Hemoglobin Concent 33.0, Red Cell Distribution Width 15.3 H, Calcium Level 7.6 L Microbiology Microbiology 06/19/16 Blood Culture - Final, Complete NO GROWTH AFTER 5 DAYS 06/19/16 Blood Culture - Final, Complete NO GROWTH AFTER 5 DAYS 06/20/16 Gram Stain - Final, Complete 06/20/16 Sputum Culture - Final, Complete Yeast Like Organism 06/19/16 Wound Culture - Final, Complete Pseudomonas Aeruginosa Staph.aureus Methicillin Resis Enterococcus Faecalis Discharge Medications Scheduled (Fluoxetine HCl) 20 Mg Tab, 30 MG PO DAILY, (Reported) (Magnesium Oxide) 400 Mg Cap, 800 MG PO DAILY Amoxicillin/Clavulanate Potas (Augmentin 875-125 mg) 1 Tab Tab, 875 MG PO QHS Baclofen (Baclofen) 20 Mg Tab, 20 MG PO DAILY, (Reported) Docusate Sod/Senna (Senna-S 8.6-50 mg) 1 Tab Tab, 2 TAB PO QHS, (Reported) Ferrous Sulfate (Ferrous Sulfate) 325 Mg Tab, 325 MG PO DAILY, (Reported) Guaifenesin (Mucinex) 600 Mg Tab, 600 MG PO BID, (Reported) Metoprolol Tartrate (Metoprolol Tartrate) 50 Mg Tab, 50 MG PO BID, (Reported) Multivitamins *[facility] STOCKED* (Thera M Plus *[facility] STOCKED*) 1 Tab Tab, 1 TAB PO DAILY, (Reported) Nystatin (Nystop Powder) 1 Dose/15 Gm Powd, 0 DOSE TOP BID Omeprazole (Omeprazole) 40 Mg Cap, 20 MG PO DAILY, (Reported) Pregabalin (Lyrica) 100 Mg Cap, 75 MG PO BID, (Reported) Tamsulosin Hydrochloride (Flomax) 0.4 Mg Cap, 0.4 MG PO DAILY, (Reported) Scheduled PRN (Calmoseptine 0.44-20.625 %) 1 Oin Oin, 1 OIN TOP ASDIRECTED PRN for ITCHING, ( Reported) Albuterol Sulfate (Albuterol Sulfate) 0.63 Mg/3 Ml Neb, 0.63 MG INH Q6HP PRN for SHORTNESS OF BREATH, (Reported) Albuterol/Ipratropium (Ipratropium [place]/Albut 0.5-2.5 (3) mg/3Ml) 1 Ted Ted, 1 TED IN Q6HP PRN for SHORTNESS OF BREATH, (Reported) Eucerin (Eucerin) 1 Cre Cre, 0 TOP BID PRN for DRY SKIN, (Reported) Zolpidem Tartrate (Ambien) 10 Mg Tab, 10 MG PO QHSP PRN for INSOMNIA, (Reported) Allergies Coded Allergies: No Known Drug Allergy (Verified Allergy, Unknown, 05/29/12) CARMINE COCHRAN-Yogesh June 24, 2016 19:27
== END 2016-06-24 12:45 | disposition home health service (06) | DRG 327 ==
LOC: M ED 20:19 → M ED INP 22:31 → M ICU 23:46 → M MSPAV 06-21 15:27
PROVIDERS: ADMIT Internal Medicine; ATTEND Internal Medicine
PROC: 0DQ38ZZ Repair Lower Esophagus, Via Natural or Artificial Opening Endoscopic (ICD-10-PCS; principal; 2016-06-19 10:04)
PROC: 30233N1 Transfusion of Nonautologous Red Blood Cells into Peripheral Vein, Percutaneous Approach (ICD-10-PCS; 2016-06-22)
DX: K22.6 Gastro-esophageal laceration-hemorrhage syndrome (principal); E87.1 Hypo-osmolality and hyponatremia; N17.9 Acute kidney failure, unspecified; Z68.41 Body mass index [BMI] 40.0-44.9, adult; B37.89 Other sites of candidiasis; L97.929 Non-pressure chronic ulcer of unspecified part of left lower leg with unspecified severity; E46 Unspecified protein-calorie malnutrition; D62 Acute posthemorrhagic anemia; E87.2 Acidosis; E66.01 Morbid (severe) obesity due to excess calories; E83.42 Hypomagnesemia; E83.52 Hypercalcemia; Z79.899 Other long term (current) drug therapy; I10 Essential (primary) hypertension; N40.0 Benign prostatic hyperplasia without lower urinary tract symptoms; K21.9 Gastro-esophageal reflux disease without esophagitis; E55.9 Vitamin D deficiency, unspecified; G47.00 Insomnia, unspecified; M54.5 Low back pain; I87.2 Venous insufficiency (chronic) (peripheral); F10.20 Alcohol dependence, uncomplicated; F32.9 Major depressive disorder, single episode, unspecified

== ENCOUNTER 2016-09-27 11:32 | Emergency (ER) | payer MEDICARE ==
[~2016-09-27] VITALS: Ht 182.9 cm; Wt 150.0 kg
[~2016-09-27 11:32] MED LIST changes: +ALBU0.63 INH; -AUGM875T27 PO; +AUGM875T28 PO; -BACL-67 PO; +BACL1TAB9 PO; +CALMOIN TOP; +EUCECRE3 TOP; +FERR325T3 PO; +FLUO20TA28 PO; -FOLI1TAB2 PO; +FOLI1TAB4 PO; +IBUPOTC PO; +IPRASOL4 IN; -LYRI100C10 PO; +MAGN400C3 PO; +METO50TA7 PO; +MUCI600T37 PO; +MULT1TAB10 PO; +POTA20TA PO; +PREG100CA PO; -ULTR50TA PO; +ULTR50TA8 PO; +VITMTA PO
[2016-09-27] MEDS ORDERED: ZOLP10TA2 PO (11:47)
[2016-09-27] MEDS ORDERED: SENE8.6T (11:47)
--- NOTE | 2016-09-27 14:37 | REP ---
LEFT FOOT SERIES: Four views of the left foot performed. No fracture or dislocation is seen. There is diffuse osteopenia. There is moderate narrowing with subchondral sclerosis and cystic change as well as spurring at the first metatarsophalangeal joint. Diffuse vascular calcifications are present. IMPRESSION: Degenerative changes. No evidence of acute fracture or dislocation. Signed by Ilan Hoover MD 09/27/2016 08:12 P
[2016-09-27 15:10] VITALS: BP 140/74
[2016-12-06] MEDS ORDERED: OMEP20CA3 PO (16:46)
[2016-12-06] MEDS ORDERED: LYRI75CA PO (16:46)
[2016-12-06] MEDS ORDERED: TAB-TAB PO (16:46)
[2016-12-06] MEDS ORDERED: FERR1TAB8 PO (16:46)
[2016-12-16] MEDS ORDERED: NYST10PW TOP (12:24)
[2016-12-16] MEDS ORDERED: PERCOCET PO (12:24)
[2016-12-16] MEDS ORDERED: SENN1TAB2 PO (12:24)
[2016-12-16] MEDS ORDERED: LIDO5TD TD (12:24)
== END 2016-09-27 15:50 | disposition home or self-care (01) ==
LOC: M ED 11:32
DX: L97.229 Non-pressure chronic ulcer of left calf with unspecified severity (principal); S90.32XA Contusion of left foot, initial encounter; Z99.3 Dependence on wheelchair; W22.8XXA Striking against or struck by other objects, initial encounter; Y92.89 Other specified places as the place of occurrence of the external cause; Y93.89 Activity, other specified; Y99.9 Unspecified external cause status
CPT/HCPCS: 73630; 99283; G0463

== ENCOUNTER → 2016-11-08 | Outpatient (REF) | payer MEDICARE ==
[~2016-11-08] MED LIST changes: +FERR1TAB8 PO; +LIDO5TD TD; +LYRI75CA PO; +OMEP20CA3 PO; +SENE8.6T; +SENN1TAB2 PO; +TAB-TAB PO; +ZOLP10TA2 PO
== END ==
LOC: M LAB REF 13:18
PROVIDERS: ATTEND Surgery
DX: I87.312 Chronic venous hypertension (idiopathic) with ulcer of left lower extremity (principal)

== ENCOUNTER → 2016-11-14 | Outpatient (CLI) | payer MEDICARE ==
--- NOTE | 2016-11-14 16:44 | REP ---
LEFT LOWER EXTREMITY DUPLEX DOPPLER ARTERIAL EVALUATION: Real-time ultrasound evaluation and duplex Doppler evaluation of the left lower extremity arterial system is performed, ankle to brachial index is 1.3 The shadowing calcific plaque is seen in the common femoral artery distally. Just proximal to this the peak systolic velocity is 68 cm/s and just distal to that calcification peak systolic velocity is 67 cm/s. I can not exclude stenosis at that calcific focus. There are monophasic wave forms distal to that calcific focus in the common femoral artery and superficial femoral artery proximal to mid aspect. Peak systolic velocity in the right superficial femoral artery is distally 121 cm/s with triphasic flow at that level. Peal systolic velocity of the right popliteal artery is 85.5 cm/s with monophasic wave forms. Tibial peroneal trunk and proximal anterior tibial artery appeared narrowed. These vessels show monophasic wave forms with peak systolic velocity 35.9 cm/s in the proximal anterior tibial artery and 63 cm/s in the tibial peroneal trunk. Velocity at the original of the anterior tibial artery is 74.3 cm/s, likely indicating stenosis at that location. IMPRESSION: Suspect stenosis of the left common femoral artery, origin of anterior tibial artery, and possibly tibial peroneal trunk. Signed by Ilan Hoover MD 11/15/2016 05:16 P
== END ==
LOC: M RAD 11:18
PROVIDERS: ATTEND Surgery
DX: I87.312 Chronic venous hypertension (idiopathic) with ulcer of left lower extremity (principal); L97.822 Non-pressure chronic ulcer of other part of left lower leg with fat layer exposed

== ENCOUNTER → 2016-11-23 | Outpatient (REF) | payer MEDICARE ==
[2016-11-23 13:19] LABS: BASO % 0.4 % (0.0-1.0); EOS # 0.3 10^3/uL (0.0-0.50); EOS % 3.7 % (0.0-3.0); IMMATURE GRANULOCYTE % 0.4 % (0-0); LYMPH # 1.1 10^3/uL (1.5-4.5); LYMPH % 13.9 % (24.0-44.0); MEAN CORPUSCULAR HEMOGLOBIN 30.7 pg (27.0-33.0); MEAN CORPUSCULAR HGB CONC 31.9 g/dl (32.0-36.5); MONO # 0.5 10^3/uL (0.0-0.8); MONO % 6.8 % (0.0-5.0); NEUTROPHILS # 5.6 10^3/uL (1.8-7.7); NEUTROPHILS % 74.8 % (36.0-66.0); PLATELET COUNT, AUTOMATED 170 10^3/uL (150-450); RED CELL DISTRIBUTION WIDTH 15.1 % (11.5-14.5); WHITE BLOOD COUNT 7.5 10^3/uL (4.0-10.0)
[2016-11-23 13:24] LABS: ADD MANUAL DIFFER NO; DIFF SLIDE NUMBER 241
[2016-11-23 13:30] LABS: ALBUMIN 2.5 GM/DL (3.2-5.2); ALBUMIN/GLOBULIN RATIO 0.6 (1.00-1.93); BILIRUBIN,TOTAL 0.4 MG/DL (0.2-1.0); CALCIUM LEVEL 7.6 MG/DL (8.8-10.2); CREATININE FOR GFR 1.31 MG/DL (0.70-1.30); GLOMERULAR FILTRATION RATE 59.4 (>49); POTASSIUM SERUM 4.2 MEQ/L (3.5-5.1); TOTAL PROTEIN 6.7 GM/DL (6.4-8.2)
== END ==
LOC: M LAB REF 12:57
PROVIDERS: ATTEND Nurse Practitioner Family
DX: I87.312 Chronic venous hypertension (idiopathic) with ulcer of left lower extremity (principal); L97.909 Non-pressure chronic ulcer of unspecified part of unspecified lower leg with unspecified severity; I10 Essential (primary) hypertension; D64.9 Anemia, unspecified; E55.9 Vitamin D deficiency, unspecified; E66.01 Morbid (severe) obesity due to excess calories; Z68.41 Body mass index [BMI] 40.0-44.9, adult; Z79.899 Other long term (current) drug therapy

== ENCOUNTER → 2017-06-16 | Outpatient (REF) | payer MEDICARE ==
[2017-06-16 18:02] LABS: BASO % 0.5 % (0.0-1.0); EOS # 0.4 10^3/uL (0.0-0.50); EOS % 6.3 % (0.0-3.0); HEMATOCRIT 35.1 % (42.0-52.0); HEMOGLOBIN 11.3 g/dl (13.5-17.5); IMMATURE GRANULOCYTE % 0.2 % (0-3.0); LYMPH # 1.2 10^3/uL (1.5-4.5); LYMPH % 20.8 % (24.0-44.0); MEAN CORPUSCULAR HEMOGLOBIN 31.7 pg (27.0-33.0); MEAN CORPUSCULAR HGB CONC 32.2 g/dl (32.0-36.5); MEAN CORPUSCULAR VOLUME 98.3 fl (80.0-96.0); MONO # 0.3 10^3/uL (0.0-0.8); MONO % 5.8 % (0.0-5.0); NEUTROPHILS # 3.9 10^3/uL (1.8-7.7); NEUTROPHILS % 66.4 % (36.0-66.0); PLATELET COUNT, AUTOMATED 138 10^3/uL (150-450); RED BLOOD COUNT 3.57 10^6/uL (4.30-6.10); RED CELL DISTRIBUTION WIDTH 15.9 % (11.5-14.5); WHITE BLOOD COUNT 5.9 10^3/uL (4.0-10.0)
[2017-06-16 18:23] LABS: ESTIMATED AVERAGE GLUCOSE 80 MG/DL (60-110); HEMOGLOBIN A1c 4.4 %
[2017-06-16 18:26] LABS: ALBUMIN 2.9 GM/DL (3.2-5.2); ALBUMIN/GLOBULIN RATIO 0.67 (1.00-1.93); ALKALINE PHOSPHATASE 87 U/L (45-117); ALT/SGPT 13 U/L (12-78); ANION GAP 6 MEQ/L (8-16); AST/SGOT 17 U/L (7-37); BILIRUBIN,TOTAL 0.6 MG/DL (0.2-1.0); BLOOD UREA NITROGEN 26 MG/DL (7-18); CALCIUM LEVEL 7.5 MG/DL (8.8-10.2); CARBON DIOXIDE LEVEL 27 MEQ/L (21-32); CHLORIDE LEVEL 108 MEQ/L (98-107); CHOLESTEROL LEVEL 154 MG/DL (<200); CREATININE FOR GFR 1.55 MG/DL (0.70-1.30); GLOMERULAR FILTRATION RATE 48.8 (>49); GLUCOSE, FASTING 111 MG/DL (70-100); HDL CHOLESTEROL 59 MG/DL (>40); LDL CHOLESTEROL 80.6 MG/DL (<100); NON-HDL-C 95 MG/DL; POTASSIUM SERUM 4.2 MEQ/L (3.5-5.1); SODIUM LEVEL 141 MEQ/L (136-145); TOTAL PROTEIN 7.2 GM/DL (6.4-8.2); TRIGLYCERIDES LEVEL 72 MG/DL (<150)
== END ==
LOC: M LAB REF 17:49
DX: I10 Essential (primary) hypertension (principal); D64.9 Anemia, unspecified; I73.9 Peripheral vascular disease, unspecified; E66.01 Morbid (severe) obesity due to excess calories
CPT/HCPCS: 84443

== ENCOUNTER → 2017-08-11 | Outpatient (REF) | payer MEDICARE ==
[2017-08-11 18:14] LABS: ALBUMIN 2.8 GM/DL (3.2-5.2); ALBUMIN/GLOBULIN RATIO 0.65 (1.00-1.93); ALKALINE PHOSPHATASE 96 U/L (45-117); ALT/SGPT 13 U/L (12-78); ANION GAP 8 MEQ/L (8-16); AST/SGOT 15 U/L (7-37); BILIRUBIN,TOTAL 0.4 MG/DL (0.2-1.0); BLOOD UREA NITROGEN 19 MG/DL (7-18); CALCIUM LEVEL 7.1 MG/DL (8.8-10.2); CARBON DIOXIDE LEVEL 28 MEQ/L (21-32); CHLORIDE LEVEL 101 MEQ/L (98-107); CREATININE FOR GFR 1.39 MG/DL (0.70-1.30); FERRITIN 64 NG/ML (26-388); GLOMERULAR FILTRATION RATE 55.3 (>49); GLUCOSE, FASTING 73 MG/DL (70-100); IRON (FE) 47 UG/DL (65-175); POTASSIUM SERUM 4.5 MEQ/L (3.5-5.1); SODIUM LEVEL 137 MEQ/L (136-145); TOTAL PROTEIN 7.1 GM/DL (6.4-8.2)
[2017-08-11 18:23] LABS: BASO % 0.3 % (0.0-1.0); EOS # 0.3 10^3/uL (0.0-0.50); EOS % 4.3 % (0.0-3.0); HEMATOCRIT 34.5 % (42.0-52.0); HEMOGLOBIN 11.4 g/dl (13.5-17.5); IMMATURE GRANULOCYTE % 0.5 % (0-3.0); LYMPH # 1.1 10^3/uL (1.5-4.5); LYMPH % 16.9 % (24.0-44.0); MEAN CORPUSCULAR HEMOGLOBIN 31.8 pg (27.0-33.0); MEAN CORPUSCULAR VOLUME 96.4 fl (80.0-96.0); MONO # 0.4 10^3/uL (0.0-0.8); NEUTROPHILS # 4.7 10^3/uL (1.8-7.7); PLATELET COUNT, AUTOMATED 127 10^3/uL (150-450); RED BLOOD COUNT 3.58 10^6/uL (4.30-6.10); RED CELL DISTRIBUTION WIDTH 13.3 % (11.5-14.5); WHITE BLOOD COUNT 6.5 10^3/uL (4.0-10.0)
== END ==
LOC: M LAB REF 16:08
DX: D64.9 Anemia, unspecified (principal); R79.89 Other specified abnormal findings of blood chemistry
CPT/HCPCS: 83540

== ENCOUNTER → 2017-10-15 | Outpatient (REF) | payer MEDICARE ==
[2017-10-15 11:20] LABS: ALBUMIN 2.4 GM/DL (3.2-5.2); ALBUMIN/GLOBULIN RATIO 0.62 (1.00-1.93); ALKALINE PHOSPHATASE 62 U/L (45-117); ALT/SGPT 10 U/L (12-78); ANION GAP 7 MEQ/L (8-16); AST/SGOT 9 U/L (7-37); BILIRUBIN,TOTAL 0.5 MG/DL (0.2-1.0); BLOOD UREA NITROGEN 18 MG/DL (7-18); CALCIUM LEVEL 7.4 MG/DL (8.8-10.2); CARBON DIOXIDE LEVEL 29 MEQ/L (21-32); CHLORIDE LEVEL 103 MEQ/L (98-107); GLOMERULAR FILTRATION RATE 59.7 (>49); GLUCOSE, FASTING 85 MG/DL (70-100); IRON (FE) 89 UG/DL (65-175); POTASSIUM SERUM 4.3 MEQ/L (3.5-5.1); SODIUM LEVEL 139 MEQ/L (136-145); TOTAL PROTEIN 6.3 GM/DL (6.4-8.2)
[2017-10-16 10:06] LABS: TOTAL 25(OH) VITAMIN D 33.9 NG/ML (30.0-100.0)
== END ==
LOC: M LAB REF 09:00
DX: R79.89 Other specified abnormal findings of blood chemistry (principal); D64.9 Anemia, unspecified; E55.9 Vitamin D deficiency, unspecified
CPT/HCPCS: 83540

== ENCOUNTER → 2018-02-04 | Outpatient (REF) | payer MEDICARE ==
[~2018-02-04] MED LIST changes: -DRIS50002 PO; +DRIS50003 PO; +FLOM0.4C39 PO; -FLOM5CAP PO; -FOLI1TAB4 PO; +FOLI1TAB5 PO; +IPRA0.00 IN; -IPRASOL4 IN; +KLOR20TA42 PO; -POTA20TA PO; -TOPR50TA PO; +TOPR50TA23 PO; +TRAZ-163 PO; +ZOLP5TAB PO
[2018-02-04 13:27] LABS: BASO % 0.3 % (0.0-1.0); EOS # 0.2 10^3/uL (0.0-0.50); HEMATOCRIT 34.6 % (42.0-52.0); HEMOGLOBIN 11.3 g/dl (13.5-17.5); LYMPH # 1.1 10^3/uL (1.5-4.5); LYMPH % 17.9 % (24.0-44.0); MEAN CORPUSCULAR HEMOGLOBIN 32.4 pg (27.0-33.0); MEAN CORPUSCULAR HGB CONC 32.7 g/dl (32.0-36.5); MEAN CORPUSCULAR VOLUME 99.1 fl (80.0-96.0); MONO # 0.4 10^3/uL (0.0-0.8); MONO % 6.4 % (0.0-5.0); NEUTROPHILS # 4.3 10^3/uL (1.8-7.7); NEUTROPHILS % 72.1 % (36.0-66.0); PLATELET COUNT, AUTOMATED 137 10^3/uL (150-450); RED BLOOD COUNT 3.49 10^6/uL (4.30-6.10)
[2018-02-04 13:43] LABS: ALBUMIN 2.6 GM/DL (3.2-5.2); BILIRUBIN,TOTAL 0.5 MG/DL (0.2-1.0); CALCIUM LEVEL 7.6 MG/DL (8.8-10.2); CREATININE FOR GFR 1.49 MG/DL (0.70-1.30); POTASSIUM SERUM 4.2 MEQ/L (3.5-5.1); TOTAL PROTEIN 7.2 GM/DL (6.4-8.2)
[2018-02-05 11:38] LABS: TOTAL 25(OH) VITAMIN D 30.8 NG/ML (30.0-100.0)
== END ==
LOC: M LAB REF 12:59
PROVIDERS: ATTEND Nurse Practitioner Adult Health
DX: D64.9 Anemia, unspecified (principal); E55.9 Vitamin D deficiency, unspecified; R79.89 Other specified abnormal findings of blood chemistry

== ENCOUNTER 2018-02-18 05:07 | Inpatient (IN) | payer MEDICARE ==
[~2018-02-18] VITALS: Ht 182.9 cm; Wt 154.8 kg
[~2018-02-18 05:07] MED LIST changes: +FOLI1TAB11 PO; -FOLI1TAB5 PO; -LASI20TA PO; +LASI20TA3 PO; -TRAZ-163 PO; -ZOLP5TAB PO
[2018-02-18] MEDS ORDERED: NORCO, ANEXSIA 5/325MG TABLET (HYDROcodone/ACETAMINOPHEN) PO ONE (06:15)
--- NOTE | 2018-02-18 08:18 | REPVR ---
EXAM: CT Left Lower Extremity Without IV Contrast, Knee EXAM DATE/TIME: 02/18/2018 7:29 AM CLINICAL HISTORY: 62 years old, male; Injury or trauma; Fall; Initial encounter; Fracture, traumatic; Closed fracture; Patella or knee; Left; Additional info: Left knee injury, prior distal femur FX TECHNIQUE: CT of the Left lower extremity without intravenous contrast was performed. Exam focused on the knee. All CT scans at this facility use at least one of these dose optimization techniques: automated exposure control; mA and/or kV adjustment per patient size (includes targeted exams where dose is matched to clinical indication); or iterative reconstruction. Coronal and sagittal reformatted images were created and reviewed. COMPARISON: CR Knee, complete LEFT 02/18/2018 6:47 AM FINDINGS: Bones/joints: Osteopenia. Small joint effusion anteriorly. Differential density within the joint effusion suggesting hemarthrosis. Fracture deformity of the proximal tibia metaphysis likely is remote. Fracture of the proximal fibula metaphysis also likely partially remote. Subtle acute cortical reinjury at the posterior margin would be difficult to entirely exclude. Patella is intact. Severe deformity of the distal femur probably remote fracture injury. There is a suspect acute cortical fracture injury at the intercondylar notch of the distal femur with adjacent cortical bone fracture or displacement. Small linear areas of calcification along the distal femur margin may reflect intra-articular loose bodies. Subtle areas of cortical fracture injury of the distal femur or tibia may be difficult to appreciate due to profound osteopenia. Soft tissues: Superficial soft tissue changes suggesting edema anteriorly and posteriorly. Vasculature: Posterior vascular calcification. IMPRESSION: 1. Small hemarthrosis left knee. 2. Overall severe fracture deformities of the distal femur, proximal tibia and likely fibula predominantly appears chronic. 3. Subtle areas of acute cortical injury could be present difficult to delineate and appreciate secondary to severe bone irregularity, deformity and profound osteopenia. There is a suspect probable acute cortical bone fracture fragments of the distal femur near the midline at the intercondylar notch. Further assessment with MRI or bone scan may be considered to further assess acute process or reinjury. 4. Soft tissue edema anteriorly and posteriorly. Electronically signed by: Racheal Quintero On 02/18/2018 08:17:38 AM
--- NOTE | 2018-02-18 08:57 | REP ---
Clinical: Trauma. Technique: AP and lateral views of the left knee. Comparison: 12/06/2016. Findings: Evaluation is significantly limited due to advanced osteopenia and post traumatic arthritic degenerative changes. Findings appear relatively stable when compared to prior examination and no obvious acute fracture or dislocation is identified. Impression: Advanced osteopenia and post traumatic/arthritic degenerative changes similar to prior examination. No obvious acute fracture. Electronically Signed by Compa Riggs MD 02/18/2018 08:49 A
--- NOTE | 2018-02-18 08:58 | REP ---
Clinical: Trauma. Technique: AP and lateral views of the left femur. Findings: Osteopenia and advanced arthritic changes at the left hip are identified along with severe arthritic and post traumatic degenerative changes at the knee. No obvious acute fracture or dislocation. Surrounding soft tissues grossly unremarkable. Impression: Advanced arthritic and post traumatic degenerative changes to the hip and knee. No acute fracture or dislocation identified. Electronically Signed by Compa Riggs MD 02/18/2018 08:50 A
[2018-02-18] MEDS ORDERED: OMEPRAZOLE 20 MG CAP PO SCH (09:00)
[2018-02-18] MEDS ORDERED: FERROUS SULFATE 325MG TAB PO SCH (09:00)
[2018-02-18] MEDS ORDERED: TAMSULOSIN 0.4 MG CAP PO SCH (09:00)
[2018-02-18] MEDS ORDERED: MORPHINE 4 MG/ML 1ML VIAL/SYRINGE (J2270) IV ONE ×2 (09:15→11:00)
[2018-02-18 09:20] LABS: BASO % 0.3 % (0.0-1.0); EOS # 0.3 10^3/uL (0.0-0.50); EOS % 2.8 % (0.0-3.0); HEMATOCRIT 33.9 % (42.0-52.0); HEMOGLOBIN 11.1 g/dl (13.5-17.5); LYMPH # 0.9 10^3/uL (1.5-4.5); LYMPH % 9.8 % (24.0-44.0); MEAN CORPUSCULAR HEMOGLOBIN 32.2 pg (27.0-33.0); MEAN CORPUSCULAR HGB CONC 32.7 g/dl (32.0-36.5); MEAN CORPUSCULAR VOLUME 98.3 fl (80.0-96.0); MONO # 0.5 10^3/uL (0.0-0.8); MONO % 5.4 % (0.0-5.0); NEUTROPHILS # 7.5 10^3/uL (1.8-7.7); NEUTROPHILS % 81.3 % (36.0-66.0); PLATELET COUNT, AUTOMATED 139 10^3/uL (150-450); RED BLOOD COUNT 3.45 10^6/uL (4.30-6.10); WHITE BLOOD COUNT 9.3 10^3/uL (4.0-10.0)
[2018-02-18 09:56] LABS: CALCIUM LEVEL 7.2 MG/DL (8.8-10.2); CREATININE FOR GFR 1.54 MG/DL (0.70-1.30); GLOMERULAR FILTRATION RATE 49.1 (>49); POTASSIUM SERUM 4.7 MEQ/L (3.5-5.1)
[2018-02-18] MEDS ORDERED: HYDROMORPHONE HCL 0.5 MG/ 0.5 ML SYRINGE (J1170 PER 1) IV ONE (11:30)
[2018-02-18] MEDS ORDERED: PREG100CA PO (11:55)
[2018-02-18] MEDS ORDERED: TRAZ-163 PO (11:55)
[2018-02-18] MEDS ORDERED: ZOLP5TAB PO (11:55)
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
[2018-02-18] MEDS ORDERED: PIPERACILLIN/TAZOBACTAM SOD 2.25 GM in D5W MINI-BAG PLUS 50 ML IV SCH (13:30)
[2018-02-18] MEDS ORDERED: PERCOCET 5MG/325MG TAB PO PRN (13:30)
--- NOTE | 2018-02-18 13:44 | HPEPDOC ---
[facility] Medical History & Physical Date of Admission Feb 18, 2018 History and Physical PRIMARY CARE PROVIDER: Miryam Viera ATTENDING: Dr. Sandra Morales CHIEF COMPLAINT: Knee pain/leg pain HISTORY OF PRESENT ILLNESS: This is a 62-year-old male past she morbid obesity, chronic back pain, history of spinal cord injury 2002 now wheelchair-bound, hypertension, chronic left leg ulceration followed by Dr. Perera, depression, peripheral artery disease, venous stasis ulcers who presents with left knee and leg pain after slipping out of his wheelchair. Patient notes that he was transferring from his chair to his regular wheelchair, when he slipped, and landed on the floor. The patient was unable to get up, and started to have knee pain. Denied any hip pain/back pain. Upon EMS arrival, the patient was transferred to the stretcher, and developed increased pain. In the ED, patient had a CT of his left lower extremity, noted below. Dr. Kwok from orthopedics has evaluated the patient with no further imaging recommended, but rather vascular surgery evaluation.. ERS to with Dr. Perera will be evaluating the patient given his underlying peripheral artery disease and chronic wounds. In the meantime, the patient does note that he has increased urinary frequency over the past few days. His UA was positive. Patient is hemodynamically stable. Patient denies any chest pain/SOB/palpitations. States he told follows with Dr. Perera for his left lower extremity wound. He has not been following with Dr. Perera outpatient. PAST MEDICAL HISTORY: As per HPI PAST SURGICAL HISTORY: Hernia repair, skin graft left lower extremity SOCIAL HISTORY: History of tobacco abuse. Wheelchair-bound. FAMILY HISTORY: Noncontributory ALLERGIES: Please see below. REVIEW OF SYSTEMS: HEENT: Denies sore throat/headache CARDIOVASCULAR: Denies chest pain/palpitations RESPIRATORY: Denies shortness of breath/cough GASTROINTESTINAL: denies nausea/vomiting GENITOURINARY: Denies dysuria/urinary urgency. MUSCULOSKELETAL: Denies myalgias/arthralgias NEUROLOGICAL: Denies any focal weakness HOME MEDICATIONS: Please see below. PHYSICAL EXAMINATION: Vitals: (see below) General: No acute distress, laying comfortably in bed. HEENT: Moist mucous membranes. Neck: No JVD or lymphadenopathy Cardiac: RRR, No murmurs Pulm: Diminished breath sounds at the bases b/l. No wheezing, rhonchi. Abd: NT/ND + BS. Obese Ext: Chronic lower extremity edema. Left lower extremity wound foul-smelling. No significant drainage. No bleeding. Distal pulses diminished but intact.. Left knee tender and distal thigh tender to palpation. No erythema. LABORATORY DATA: See below. IMAGING: CT left lower extremity 02/18/18 IMPRESSION: 1. Small hemarthrosis left knee. 2. Overall severe fracture deformities of the distal femur, proximal tibia and likely fibula predominantly appears chronic. 3. Subtle areas of acute cortical injury could be present difficult to delineate and appreciate secondary to severe bone irregularity, deformity and profound osteopenia. There is a suspect probable acute cortical bone fracture fragments of the distal femur near the midline at the intercondylar notch. Further assessment with MRI or bone scan may be considered to further assess acute process or reinjury. 4. Soft tissue edema anteriorly and posteriorly. ASSESSMENT/PLAN: 1. Acute on chronic Left knee/thigh pain status post mechanical fall from wheelchair while transferring- evaluated by orthopedics. No further imaging recommended. No surgical intervention recommended. CT of the lower extremity (see above). Pain control. Appreciate Dr. Kwok's input. Dr. Perera consulted for vascular input. 2. UTI- started on Zosyn. Pending cultures. 3. Lower extremity wound foul-smelling. Follows up by Dr. Perera outpt. Blood culture sent. Started on vancomycin and Zosyn pending cultures. 4. Peripheral artery disease Dr. Perera consulted 5. Morbid obesity complicating care 6. Chronic anemia -stable no need for transfusion this time. 7. Chronic venous stasis 8.History of depression 9. History of hypertension 10. Wheelchair-bound status post spinal cord injury DVT prophylaxis heparin subcutaneous Overall prognosis guarded. Vital Signs Vital Signs Date Time Temp Pulse Resp B/P (MAP) Pulse Ox O2 Delivery O2 Flow Rate FiO2 02/18/18 12:29 103 110/64 (79) 93 02/18/18 12:23 18 Room Air 02/18/18 09:59 98.3 Laboratory Data Labs 24H Laboratory Tests 2 02/18/18 09:07: Immature Granulocyte % (Auto) 0.4, White Blood Count 9.3, Red Blood Count 3.45L, Hemoglobin 11.1L, Hematocrit 33.9L, Mean Corpuscular Volume 98.3H, Mean Corpusc ular Hemoglobin 32.2, Mean Corpuscular Hemoglobin Concent 32.7, Red Cell Distribution Width 13.2, Platelet Count 139L, Neutrophils (%) (Auto) 81.3H, Lymphocytes (%) (Auto) 9.8L, Monocytes (%) (Auto) 5.4H, Eosinophils (%) (Auto) 2.8, Basophils (%) (Auto) 0.3, Neutrophils # (Auto) 7.5, Lymphocytes # (Auto) 0.9L, Monocytes # (Auto) 0.5, Eosinophils # (Auto) 0.3, Basophils # (Auto) 0.0, Nucleated Red Blood Cells % (auto) 0.0, Urine Color STRAW, Urine Appearance CLEAR, Urine pH 5.0, Urine Specific [place] 1.004, Urine Protein 1+H, Urine Glucose (UA) NEGATIVE, Urine Ketones NEGATIVE, Urine Blood 1+H, Urine Nitrite NEGATIVE, Urine Bilirubin NEGATIVE, Urine Urobilinogen 0.2, Urine Leukocyte Esterase 2+H, Urine WBC (Auto) 26H, Urine RBC (Auto) 2, Urine Hyaline Casts (Auto) 0, Urine Bacteria (Auto) 2+H, Urine Squamous Epithelial Cells 0, Urine Sperm (Auto) , Anion Gap 6L, Glomerular Filtration Rate 49.1, Blood Urea Nitrogen 19H, Creatinine 1.54H, Sodium Level 134L, Potassium Level 4.7, Chloride Level 101, Carbon Dioxide Level 27, Calcium Level 7.2L, Total Creatine Kinase 56 CBC/BMP Laboratory Tests 02/18/18 09:07 Red Blood Count 3.45 L, Mean Corpuscular Volume 98.3 H, Mean Corpuscular Hemoglobin 32.2, Mean Corpuscular Hemoglobin Concent 32.7, Red Cell Distribution Width 13.2, Neutrophils (%) (Auto) 81.3 H, Lymphocytes (%) (Auto) 9.8 L, Monocytes (%) (Auto) 5.4 H, Eosinophils (%) (Auto) 2.8, Basophils (%) (Auto) 0.3, Neutrophils # (Auto) 7.5, Lymphocytes # (Auto) 0.9 L, Monocytes # (Auto) 0.5, Eosinophils # (Auto) 0.3, Basophils # (Auto) 0.0, Calcium Level 7.2 L Microbiology Microbiology 12/30/18 Blood Culture, Received Pending 02/18/18 Urine Culture, Received Pending 02/18/18 Gram Stain, Received Pending 02/18/18 Wound Culture, Received Pending Home Medications Scheduled (Fluoxetine HCl) 20 Mg Tab, 20 MG PO DAILY (Tab-A-Liz) 1 Tab Tab, 1 TAB PO DAILY Ferrous Sulfate (Ferrous Sulfate) 325 Mg Tab, 325 MG PO DAILY Metoprolol Tartrate (Metoprolol Tartrate) 50 Mg Tab, 50 MG PO BID Omeprazole (Omeprazole) 20 Mg Cap, 20 MG PO DAILY Pregabalin (Lyrica) 100 Mg Cap, 100 MG PO BID Tamsulosin Hydrochloride (Flomax) 0.4 Mg Cap, 0.4 MG PO DAILY Trazodone HCl (Trazodone HCl) 100 Mg Tab, 100 MG PO QHS Scheduled PRN Baclofen (Baclofen) 20 Mg Tab, 20 MG PO DAILY PRN for MUSCLE SPASMS Zolpidem Tartrate (Zolpidem Tartrate) 5 Mg Tab, 5 MG PO QHS PRN for SLEEP Allergies Coded Allergies: No Known Drug Allergy (Verified Allergy, Unknown, 05/29/12) SANDRA MORALES MD Feb 18, 2018 13:44
[2018-02-18] MEDS: VANCOMYCIN HCL 1,000 MG, VIAL MATE ADAPTER 1 EACH in D5W 250 ML IV SCH ×2 (14:00→16:11)
[2018-02-18] MEDS ORDERED: zolPIDEM TARTRATE 5 MG TAB PO PRN (15:00)
[2018-02-18] MEDS ORDERED: BACLOFEN 10 MG TAB PO PRN (15:00)
[2018-02-18 15:37] LABS: ALBUMIN 2.2 GM/DL (3.2-5.2); BILIRUBIN,DIRECT 0.2 MG/DL (0.0-0.2); BILIRUBIN,TOTAL 0.5 MG/DL (0.2-1.0); C REACTIVE PROTEIN QUANTITATIV 8.44 MG/DL (0.00-0.30); TOTAL PROTEIN 6.6 GM/DL (6.4-8.2)
[2018-02-18] MEDS: MORPHINE 4 MG/ML 1ML VIAL/SYRINGE (J2270) IV PRN ×2 (16:09→22:53)
[2018-02-18 16:30] VITALS: BP 128/75
[2018-02-18] MEDS ORDERED: SLF 3 ML SYR IV PRN (16:45)
[2018-02-18] MEDS ORDERED: PIPERACILLIN/TAZOBACTAM SOD 3.375 GM in D5W MINI-BAG PLUS 50 ML IV ONE (17:00)
[2018-02-18] MEDS: PIPERACILLIN/TAZOBACTAM SOD 3.375 GM in D5W MINI-BAG PLUS 50 ML IV SCH ×2 (17:38→22:51)
--- NOTE | 2018-02-18 18:46 | PHACANCOPD ---
PHARMACY VANCOMYCIN DOSING Pt Demographics Demographics Patient Age:62 , Weight:166.300 , Gender: male Adjusted Body Weight Date: 02/18/18, Adjusted Body Weight: Kg Events Past 24 Hours Events Past 24 Hours: NO: Dialysis, Diuretic Therapy, Change in CrCl, Fever, Elevation in WBC, Pending Diagnostics, Pending Procedures, Other Vancomycin Vancomycin indication: LEG WOUND INFECTION Vancomycin Target Ranges: 15-20 mcg/ml Vancomycin Load Y/N: Yes Load Dose Date Time Vancomycin Load Dose: 2000mg Date: 02/18 Time: 1500 Vancomycin Dose Date: 02/18/18. Current Vancomycin Dose: [1gm IV q24h@15] Intermittent Dosing?: No Labs Labs Bad table Micro Microbiology 02/18/18 Blood Culture, Received Pending 02/18/18 Blood Culture, Received Pending 02/18/18 Urine Culture, Received Pending 02/18/18 Gram Stain - Final, Resulted 02/18/18 Wound Culture, Resulted Pending Creatinine Clearance Date:02/18/18. Creatinine Clearance: . Assessment and Plan Maintaining Current Dose?: Yes Reason for dose change: No Dose Change Pharmacist Note Pharmacist Note Date: 02/18/18. Pharmacist note: Patient was started on Zosyn empirically for UTI and wound infection on leg and Vancomycin for wound infection on leg. He follows Dr. Perera currently for wound. He is afebrile and WBC is within normal limits but CRP is elevated. Wound is noted to be foul smelling. Urine, blood and wound cultures are pending. Patient is wheelchair bound. He has a history of MRSA and Vancomycin use at [facility]. He was loaded with 2000mg of Vancomycin then continued on 1000mg q24h started tomorrow. A trough was ordered tomorrow before starting his maintenance dose because he has a history of accumulating his Vancomycin in the past. We will continue to monitor and make adjustments accordingly. REGLA HUFFMAN PHARMAC[facility] Feb 18, 2018 18:46
[2018-02-18] MEDS: ONDANSETRON 4MG/2ML VIAL (J2405) IV PRN (19:41)
[2018-02-18 19:51] VITALS: BP 135/68
[2018-02-18] MEDS ORDERED: CALCIUM GLUCONATE 1,000 MG in D5W MINI-BAG PLUS 100 ML IV ONE (20:30)
[2018-02-18] MEDS ORDERED: PREGABALIN 100 MG CAP (LYRICA) PO SCH (21:00)
[2018-02-18] MEDS ORDERED: METOPROLOL TART 50 MG TAB PO SCH (21:00)
[2018-02-18] MEDS ORDERED: HEPARIN SOD (PORCINE) 5000 UNITS/ML VIAL SC SCH (22:00)
[2018-02-18] MEDS ORDERED: SLF 3 ML SYR IV SCH (22:00)
[2018-02-19] VITALS (47 sets, daily range): BP systolic 48–220; BP diastolic 28–144
[2018-02-19] MEDS ORDERED: ETOMIDATE INJ 20MG/10ML VIAL As Ordered ONE ×2 (04:31→04:41)
[2018-02-19] MEDS ORDERED: SUCCINYLCHOLINE INJ 200 MG/10 ML VIAL (J0330) As Ordered ONE (04:32)
[2018-02-19] MEDS ORDERED: NALOXONE INJ 0.4 MG/1 ML VIAL (J2310) As Ordered ONE ×3 (04:34→04:56)
[2018-02-19] MEDS ORDERED: REFRIGERATOR IV KEYS XX PRN (04:45)
[2018-02-19] MEDS ORDERED: NALOXONE HCL INJ 4 MG in D5W 496 ML IV SCH (04:45)
[2018-02-19] MEDS ORDERED: MIDAZOLAM HCL 100 MG in D5W 80 ML IV SCH (04:45)
[2018-02-19 04:58] LABS: BASO # 0.1 10^3/uL (0.0-0.2); BASO % 0.5 % (0.0-1.0); EOS % 0.2 % (0.0-3.0); HEMATOCRIT 36.2 % (42.0-52.0); HEMOGLOBIN 11.4 g/dl (13.5-17.5); LYMPH % 23.7 % (24.0-44.0); MEAN CORPUSCULAR HEMOGLOBIN 32.6 pg (27.0-33.0); MEAN CORPUSCULAR HGB CONC 31.5 g/dl (32.0-36.5); MEAN CORPUSCULAR VOLUME 103.4 fl (80.0-96.0); MONO # 0.5 10^3/uL (0.0-0.8); MONO % 4.1 % (0.0-5.0); NEUTROPHILS # 8.6 10^3/uL (1.8-7.7); NEUTROPHILS % 69.1 % (36.0-66.0); PLATELET COUNT, AUTOMATED 135 10^3/uL (150-450); WHITE BLOOD COUNT 12.5 10^3/uL (4.0-10.0)
[2018-02-19] MEDS ORDERED: MIDAZOLAM INJ 2 MG/2 ML VIAL (J2250) As Ordered ONE (05:15)
--- NOTE | 2018-02-19 05:47 | IPNPDOC ---
Date Seen The patient was seen on 02/19/18. Progress Note 62-year-old male past she morbid obesity, chronic back pain, history of spinal cord injury 2001 now wheelchair-bound, HTN, chronic left leg ulceration followed by Dr. Perera, depression, peripheral artery disease, venous stasis ulcers who presents with left knee and leg pain after slipping out of his wheelchair. Pt admitted and treated for Acute on chronic Left knee/thigh pain status post mechanical fall,uti, LE wound found over night to be unresponsive. Hypoxemic and hypotensive at 418am. Rapid responses and shortly after code called due to PEA. When I rushed over CPR already started. ACLS performed. Patient underwent CPR and epi, bicarb, narcan given. ABG requested but resp therapist bagging pt. Pulse regained, BP low but stable, ivf given throughout CPR and second line access and labs drawn but pt not maintaining airway; thus, intubated by anesthesia. ABG, EKG, Versed ordered. No fever. Last narcotic medication 4-5hr ago. Obesity but not on oxygen at night. Multiple attempts tried to reach family without success. Shortly after intubation, pulse lost, and another round of ACLS performed. Epi, cacl, bicarbonate, and narcans again used. (Total of 2 acls, s/p intubation, 5 epi, 2 bicarb, 1 cacl, and 5 narcan vials.) Regained pulse again, BP stable, narcan drip utilized and pt transferred to ICU. Too unstable for CTA chest. Pt more responsive in ICU. ICU attending consulted. Versed d/c and use prn. Anderson. CXR: ET tube above brian, official report pending. Labs still pending. Continue abx in the interim. EKG and ABG pending. Dr. Austin in house seeing pt. Defer further management to ICU team. Unable to reach family. Critical time> 60min Lab showed positive TNI possibly from CPR, EKG heart rate sinus 88 PVC but no elevation, Electrolyte abnormalities, and acute on chronic kidney disease. Lactic acidosis. Patient receiving IV fluid and blood pressure management as per residential direct support professional. Status post central line placement by the residential direct support professional. Patient again had another (3rd) code and ACLS performed at 6:15. And again pulse regained. Staff to continue to reach out to family. 4th coded at 7am, pt anatoly and hypotensive even with pressors and ivf, s/p intubation. Pt responded to ACLS. Working ddx sepsis per [employer]. Pt on vanco and zosyn. Further recommendation per ICU team. VS, I&O, 24H, Fishbone Vital Signs/I&O Vital Signs Date Time Temp Pulse Resp B/P (MAP) Pulse Ox O2 Delivery O2 Flow Rate FiO2 02/19/18 05:05 124 26 80 02/19/18 00:00 98.6 94/57 (69) 100 Room Air I&O- Last 24 Hours up to 6 AM 02/19/18 06:00 Intake Total 900 ml Output Total 100 ml Balance 800 ml Laboratory Data 24H LABS Laboratory Tests 2 02/18/18 09:07: Immature Granulocyte % (Auto) 0.4, White Blood Count 9.3, Red Blood Count 3.45L, Hemoglobin 11.1L, Hematocrit 33.9L, Mean Corpuscular Volume 98.3H, Mean Corpuscular Hemoglobin 32.2, Mean Corpuscular Hemoglobin Concent 32.7, Red Cell Distribution Width 13.2, Platelet Count 139L, Neutrophils (%) (Auto) 81.3H, Lymphocytes (%) (Auto) 9.8L, Monocytes (%) (Auto) 5.4H, Eosinophils (%) (Auto) 2.8, Basophils (%) (Auto) 0.3, Neutrophils # (Auto) 7.5, Lymphocytes # (Auto) 0.9L, Monocytes # (Auto) 0.5, Eosinophils # (Auto) 0.3, Basophils # (Auto) 0.0, Nucleated Red Blood Cells % (auto) 0.0, Urine Color STRAW, Urine Appearance CLEAR, Urine pH 5.0, Urine Specific [place] 1.004, Urine Protein 1+H, Urine Glucose (UA) NEGATIVE, Urine Ketones NEGATIVE, Urine Blood 1+H, Urine Nitrite NEGATIVE, Urine Bilirubin NEGATIVE, Urine Urobilinogen 0.2, Urine Leukocyte Esterase 2+H, Urine WBC (Auto) 26H, Urine RBC (Auto) 2, Urine Hyaline Casts (Auto) 0, Urine Bacteria (Auto) 2+H, Urine Squamous Epithelial Cells 0, Urine Sperm (Auto) , Anion Gap 6L, Glomerular Filtration Rate 49.1, Blood Urea Nitrogen 19H, Creatinine 1.54H, Sodium Level 134L, Potassium Level 4.7, Chloride Level 101, Carbon Dioxide Level 27, Calcium Level 7.2L, Total Creatine Kinase 56 02/18/18 14:52: Lactic Acid Level 1.2, Whole Blood Ionized Calcium 4.1L, Aspartate Amino Transf (AST/SGOT) 14, Alanine Aminotransferase (ALT/SGPT) 11L, Alkaline Phosphatase 65, Total Bilirubin 0.5, Direct Bilirubin 0.2, C-Reactive Protein, Quantitative 8.44H, Total Protein 6.6, Albumin 2.2L, Albumin/Globulin Ratio 0.50L 02/19/18 04:44: Immature Granulocyte % (Auto) 2.4, White Blood Count 12.5H, Red Blood Count 3.50L, Hemoglobin 11.4L, Hematocrit 36.2L, Mean Corpuscular Volume 103.4H, Mean Corpuscular Hemoglobin 32.6, Mean Corpuscular Hemoglobin Concent 31.5L, Red Cell Distribution Width 13.5, Platelet Count 135L, Neutrophils (%) (Auto) 69.1H, Lymphocytes (%) (Auto) 23.7L, Monocytes (%) (Auto) 4.1, Eosinophils (%) (Auto) 0.2, Basophils (%) (Auto) 0.5, Neutrophils # (Auto) 8.6H, Lymphocytes # (Auto) 3.0, Monocytes # (Auto) 0.5, Eosinophils # (Auto) 0.0, Basophils # (Auto) 0.1, Nucleated Red Blood Cells % (auto) 0.4H, Lactic Acid Level 6.9*H CBC/BMP Laboratory Tests 02/18/18 09:07 Red Blood Count 3.45 L, Mean Corpuscular Volume 98.3 H, Mean Corpuscular Hemoglobin 32.2, Mean Corpuscular Hemoglobin Concent 32.7, Red Cell Distribution Width 13.2, Neutrophils (%) (Auto) 81.3 H, Lymphocytes (%) (Auto) 9.8 L, Monocytes (%) (Auto) 5.4 H, Eosinophils (%) (Auto) 2.8, Basophils (%) (Auto) 0.3, Neutrophils # (Auto) 7.5, Lymphocytes # (Auto) 0.9 L, Monocytes # (Auto) 0.5, Eosinophils # (Auto) 0.3, Basophils # (Auto) 0.0, Calcium Level 7.2 L 02/19/18 04:44 Red Blood Count 3.50 L, Mean Corpuscular Volume 103.4 H, Mean Corpuscular Hemoglobin 32.6, Mean Corpuscular Hemoglobin Concent 31.5 L, Red Cell Distribut ion Width 13.5, Neutrophils (%) (Auto) 69.1 H, Lymphocytes (%) (Auto) 23.7 L, Monocytes (%) (Auto) 4.1, Eosinophils (%) (Auto) 0.2, Basophils (%) (Auto) 0.5, Neutrophils # (Auto) 8.6 H, Lymphocytes # (Auto) 3.0, Monocytes # (Auto) 0.5, Eosinophils # (Auto) 0.0, Basophils # (Auto) 0.1 Microbiology Microbiology 02/18/18 Blood Culture, Received Pending 02/18/18 Blood Culture, Received Pending 02/18/18 Urine Culture, Received Pending 02/18/18 Gram Stain - Final, Resulted 02/18/18 Wound Culture, Resulted Pending ADRIANE ELISE MD Feb 19, 2018 05:47
[2018-02-19 05:53] LABS: BILIRUBIN,TOTAL 0.9 MG/DL (0.2-1.0); C REACTIVE PROTEIN QUANTITATIV 12.9 MG/DL (0.00-0.30); CALCIUM LEVEL 7.3 MG/DL (8.8-10.2); CREATININE FOR GFR 2.6 MG/DL (0.70-1.30); GLOMERULAR FILTRATION RATE 26.8 (>49); MAGNESIUM LEVEL 1.9 MG/DL (1.8-2.4); POTASSIUM SERUM 5.5 MEQ/L (3.5-5.1); TOTAL PROTEIN 6.8 GM/DL (6.4-8.2); TROPONIN I 0.32 NG/ML (< 0.10)
[2018-02-19] MEDS ORDERED: NOREPINEPHRINE 4 MG/4 ML AMP As Ordered ONE ×2 (05:56→05:57)
[2018-02-19] MEDS ORDERED: MAG SULF 1GM/100ML (MAG RUN) 1 GM in APPROPRIATE DILUENT 1 EA IV ONE (06:00)
[2018-02-19] MEDS ORDERED: NOREPINEPHRINE BITARTRATE 8 MG in D5W 492 ML IV SCH (06:00)
[2018-02-19] MEDS ORDERED: ATROPINE SULF 1MG/10ML SYRINGE (J0461) As Ordered ONE (06:08)
[2018-02-19 06:20] LABS: ABG BASE EXCESS -9.6 (-2.0-2.0); ABG HCO3 15.7 MEQ/L (22.0-26.0); ABG O2 SATURATION 97.3 % (95.0-99.0); ABG PARTIAL PRESSURE CO2 32.1 mmHg (35.0-45.0); ABG PARTIAL PRESSURE O2 104.3 mmHg (75.0-100.0); ABG STANDARD HCO3 16.8 MEQ/L (22.0-26.0); ABG TOTAL CO2 16.6 MEQ/L (23.0-31.0); ABG pH (ARTERIAL) 7.306 UNITS (7.350-7.450)
[2018-02-19] MEDS ORDERED: SODIUM BICARBONATE 8.4% INJ 50 ML SYRINGE As Ordered ONE ×2 (06:24→20:26)
[2018-02-19 06:29] LABS: ABG BASE EXCESS -6.5 (-2.0-2.0); ABG HCO3 22.1 MEQ/L (22.0-26.0); ABG O2 SATURATION 27.5 % (95.0-99.0); ABG PARTIAL PRESSURE CO2 59.9 mmHg (35.0-45.0); ABG STANDARD HCO3 17.9 MEQ/L (22.0-26.0); ABG TOTAL CO2 23.9 MEQ/L (23.0-31.0)
--- NOTE | 2018-02-19 06:32 | REPVR ---
EXAM: XR Chest, 1 View CLINICAL HISTORY: 62 years old, male; Signs and symptoms and device placement; Ett placement (vent status); Shortness of breath; Additional info: AMS TECHNIQUE: Frontal view of the chest. COMPARISON: CR Chest, 1 view 06/19/2016 1:50 PM FINDINGS: Lungs: Patchy airspace disease throughout the right lung. Pleural space: Blunting of the right costophrenic angle. No pneumothorax. Heart: Stable heart size. Mediastinum: Normal. Bones/joints: Degenerative changes in the spine. No acute fracture. Normal alignment. Tubes, lines and devices: Endotracheal tube in place, with tip 5.0 cm above the brian. Upper abdomen: Elevation of the right hemidiaphragm. IMPRESSION: Right lung airspace disease. Small right pleural effusion. Nonacute/incidental findings above. Electronically signed by: Chris Leong On 02/19/2018 06:32:11 AM
[2018-02-19 06:33] LABS: ABG pH (ARTERIAL) 7.184 UNITS (7.350-7.450)
[2018-02-19 06:34] LABS: ABG PARTIAL PRESSURE O2 25.2 mmHg (75.0-100.0)
[2018-02-19] MEDS ORDERED: VASOPRESSIN INJ 20 UNITS/ML VIAL As Ordered ONE (06:54)
[2018-02-19] MEDS ORDERED: EPINEPHrine INJ 1 MG/ML 1ML AMP As Ordered ONE ×2 (07:00→07:06)
[2018-02-19] MEDS: EPINEPHrine HCL INJ 1 MG in D5W 240 ML IV SCH ×3 (07:00→09:14)
[2018-02-19] MEDS ORDERED: VASOPRESSIN INJ 20 UNITS in NS 499 ML IV SCH (07:00)
[2018-02-19 07:03] LABS: HEMATOCRIT 32.4 % (42.0-52.0); HEMOGLOBIN 10.1 g/dl (13.5-17.5); MEAN CORPUSCULAR HEMOGLOBIN 31.9 pg (27.0-33.0); MEAN CORPUSCULAR HGB CONC 31.2 g/dl (32.0-36.5); MEAN CORPUSCULAR VOLUME 102.2 fl (80.0-96.0); PLATELET COUNT, AUTOMATED 133 10^3/uL (150-450); RED BLOOD COUNT 3.17 10^6/uL (4.30-6.10); WHITE BLOOD COUNT 11.4 10^3/uL (4.0-10.0)
--- NOTE | 2018-02-19 07:03 | REP ---
Clinical: Endotracheal tube. Comparison: 02/19/2018 at 04:38 a.m.. Findings: Examination is limited by portable technique, poor inspiratory effort, and positioning. Endotracheal tube approximately 2 cm above the brian. Mediastinum, cardiac silhouette, and visualized lung hayden are essentially unchanged. Mild right basilar atelectasis and small layering effusion cannot be excluded. Visualized left lung base appears clear. Impression: 1. Endotracheal tube approximately 2 cm above the brian. 2. Limited examination suggesting right perihilar and basilar atelectasis along with possible small layering right effusion. Electronically Signed by Compa Riggs MD 02/19/2018 06:55 A
[2018-02-19 07:08] LABS: INR 2.01; PROTHROMBIN TIME 23.1 SECONDS (12.1-14.4)
[2018-02-19 07:10] LABS: PARTIAL THROMBOPLASTIN TIME 50.2 SECONDS (25.4-37.6)
[2018-02-19] MEDS ORDERED: methylPREDNISolone INJ 125 MG/2 ML VIAL (J2930) IV ONE (07:15)
[2018-02-19] MEDS ORDERED: CEFTAROLINE FOSAMIL 600 MG in D5W MINI-BAG PLUS 50 ML IV SCH (07:30)
[2018-02-19] MEDS ORDERED: MAGNESIUM SULFATE 1 GM/100 ML D5W BAG (10MG/ML) (J3475) As Ordered ONE (07:48)
[2018-02-19] MEDS ORDERED: HEPARIN DRIP 25,000 UNITS in APPROPRIATE DILUENT 1 EA IV SCH (07:58)
[2018-02-19 07:59] LABS: ALBUMIN 1.7 GM/DL (3.2-5.2); BILIRUBIN,TOTAL 1.1 MG/DL (0.2-1.0); CALCIUM LEVEL 7.5 MG/DL (8.8-10.2); CREATININE FOR GFR 2.78 MG/DL (0.70-1.30); GLOMERULAR FILTRATION RATE 24.9 (>49); MB/CK RELATIVE INDEX 1.9 (< OR =4); PHOSPHORUS LEVEL 6.5 MG/DL (2.5-4.9); POTASSIUM SERUM 4.8 MEQ/L (3.5-5.1); TROPONIN I 1.06 NG/ML (< 0.10)
[2018-02-19] MEDS ORDERED: MAGNESIUM SULFATE 1 GM/100 ML D5W BAG (10MG/ML) (J3475) ONE (08:00)
[2018-02-19] MEDS ORDERED: NALOXONE INJ 0.4 MG/1 ML VIAL (J2310) ONE (08:00)
[2018-02-19] MEDS ORDERED: SODIUM BICARBONATE 8.4% INJ 50 ML SYRINGE ONE (08:00)
[2018-02-19] MEDS ORDERED: EPINEPHrine 1MG/10ML SYRINGE 1.5IN ONE (08:00)
[2018-02-19] MEDS ORDERED: CALCIUM CHLORIDE 10% 1 GM/10 ML SYR ONE (08:00)
[2018-02-19] MEDS ORDERED: AMIODARONE HCL 150 MG/100 ML PREMIXED BAG (NEXTERONE) ONE (08:00)
[2018-02-19] MEDS ORDERED: HEPARIN SOD (PORCINE) 5000 UNITS/ML VIAL IV PRN (08:00)
[2018-02-19] MEDS ORDERED: NS 1,000 ML IV ONE ×4 (08:30→08:45)
[2018-02-19] MEDS ORDERED: ETOMIDATE INJ 20MG/10ML VIAL IV STA ×2 (08:36→14:42)
[2018-02-19] MEDS ORDERED: SUCCINYLCHOLINE INJ 200 MG/10 ML VIAL (J0330) IV STA (08:36)
[2018-02-19] MEDS: NS 1,000 ML IV SCH ×3 (08:40→21:53)
[2018-02-19] MEDS ORDERED: MIDAZOLAM INJ 2 MG/2 ML VIAL (J2250) IV ONE ×2 (08:45)
--- NOTE | 2018-02-19 08:54 | REP ---
Clinical: Chest pain and hypoxia . Technique: Hoover scale and color Doppler evaluation using linear high frequency transducer. Findings: Ultrasound examination of the right and left lower extremity deep venous structures from the common femoral vein to the popliteal vein demonstrates normal compressibility flow and wave patterns in response to respiration and augmentation. There is no evidence for deep venous thrombosis. Impression: No evidence for deep venous thrombosis bilateral lower extremities . Electronically Signed by Compa Riggs MD 02/19/2018 08:46 A
[2018-02-19] MEDS ORDERED: FLUoxetine 20 MG CAP PO SCH (09:00)
[2018-02-19 09:05] LABS: ABG BASE EXCESS -11.5 (-2.0-2.0); ABG HCO3 14.1 MEQ/L (22.0-26.0); ABG O2 SATURATION 98.8 % (95.0-99.0); ABG PARTIAL PRESSURE CO2 30.9 mmHg (35.0-45.0); ABG PARTIAL PRESSURE O2 150.6 mmHg (75.0-100.0); ABG STANDARD HCO3 15.4 MEQ/L (22.0-26.0); ABG pH (ARTERIAL) 7.277 UNITS (7.350-7.450)
--- NOTE | 2018-02-19 09:37 | CCN ---
DATE: 02/19/2018 CRITICAL CARE NOTE START TIME: 529 STOP TIME: 709 I was called to attend Rocio Eng emergently. He is a gentleman admitted with cellulitis of the left leg, who was found diaphoretic, unresponsive on the progressive care unit (PCU). MAX cart was called. He received cardiopulmonary resuscitation as well as about eight rounds of epinephrine. He was intubated. On my arrival, heart rate was about 110, blood pressure was only able to be barely obtained by Doppler. Central line was placed occupying less than 2 minutes time. At that point in time, 3 liters of intravenous (IV) normal saline had been given. He clearly had a change in mental status, became apneic and bradyed down. Code was then called again. He received atropine, epinephrine, and cardiopulmonary resuscitation. He required shock at least three times for ventricular tachycardia. He was treated also with sodium bicarbonate. He had return of perfusion. He awoke after that as well. Ventilator changes were made. Chest x-ray showed lines and tubes in good position and no pneumo. Levophed was started. Blood gas done at the time of that Max Cart showed a pH of 7.184 with a pCO2 of 59. I believe it was a mixed venous gas as the pO2 was only in the 20s and saturation intermittently reading 93-97% on the monitor. Pupils did react. Sclerae are clear. Lungs showed some rhonchi that cleared with suctioning but expansion was symmetric. No rubs. Cardiac Exam: Distant, tachycardic after his second MAX Cart. Abdomen: Obese, benign, mildly quiet, morbidly obese. Extremities show dressings on the left lower extremity. There is diffuse edema. Neurologically, he did move all extremities. He then again had a precipitous drop in his blood pressure with bradycardia. Repeat epinephrine and cardiopulmonary resuscitation. No shock was needed at that point in time. He was then placed on an epinephrine drip. He has already maxed out on Levophed as well as vasopressin. Repeat laboratories are pending at the time of this dictation. The most pressing problems requiring my immediate presence at the bedside: 1. Respiratory failure requiring mechanical ventilatory support. 2. MAX Cart now times four. 3. Suspect sepsis with shock versus pulmonary embolus (PE). 4. Cellulitis. At this point, he will be maintained on three pressors. He received significant volume resuscitation. We await his labs. Certainly, in view of his presentation, we will consider empiric anticoagulation as PE is certainly in the differential. I have spoken with the primary service. They will pursue echocardiogram. We await the outcome of the above. His prognosis is guarded in view of the above. I spoke with Dr. Cormier, and they will try to reach family. I left the bedside at 0710 hours. 100 minutes of critical care time at the bedside, not including procedures. ANU
[2018-02-19] MEDS: EPINEPHrine HCL INJ 4 MG in D5W 960 ML IV SCH ×3 (09:46→18:39)
[2018-02-19] MEDS: CEFTAROLINE FOSAMIL 400 MG in D5W MINI-BAG PLUS 50 ML IV SCH ×2 (09:48→20:35)
--- NOTE | 2018-02-19 10:15 | IPNPDOC ---
Text Note Date of Service The patient was seen on 02/19/18. 7:20am NOTE Juve Joseph has been called on patient. He has coded 3 prior times earlier this morning. It appears that the patient was hypotensive and hypoxic and was subsequently intubated and is currently on 3 pressors and mechanically ventilated. During his fourth code, the patient was given epi, bicarbonate, amiodarone as the patient had a wide couplets rhythm, and magnesium. After the code, the patient is able to nod, follows simple commands squeezing hand, and appears comfortable. It is questionable whether the patient had a pulmonary embolism/fat embolism/PR. Discussed with Dr. Austin with recommendations for heparin drip, no TPA for now as patient had multiple rounds of CPR. Brother has been called as there was no MOLST form available, and we are awaiting call back, as he would like to discuss code status with his sisters. Patient is critically ill, in renal failure/liver shock, on 3 pressors, had been started on broad-spectrum antibiotics on admission. Pt has a very poor prognosis. Appreciate Dr. Austin taking over the care of this patient given his critical state. VS,Fishbone, I+O VS, Fishbone, I+O Laboratory Tests 02/19/18 04:44 Red Blood Count 3.50 L, Mean Corpuscular Volume 103.4 H, Mean Corpuscular Hemoglobin 32.6, Mean Corpuscular Hemoglobin Concent 31.5 L, Red Cell Distribution Width 13.5, Neutrophils (%) (Auto) 69.1 H, Lymphocytes (%) (Auto) 23.7 L, Monocytes (%) (Auto) 4.1, Eosinophils (%) (Auto) 0.2, Basophils (%) (Auto) 0.5, Neutrophils # (Auto) 8.6 H, Lymphocytes # (Auto) 3.0, Monocytes # (Auto) 0.5, Eosinophils # (Auto) 0.0, Basophils # (Auto) 0.1, Calcium Level 7.3 L, Aspartate Amino Transf (AST/SGOT) 495 H, Alanine Aminotransferase (ALT/SGPT) 269 H, Alkaline Phosphatase 58, Total Bilirubin 0.9 #, Total Protein 6.8, Albumin 2.0 L 02/19/18 06:31 Red Blood Count 3.17 L, Mean Corpuscular Volume 102.2 H, Mean Corpuscular Hemoglobin 31.9, Mean Corpuscular Hemoglobin Concent 31.2 L, Red Cell Distribution Width 13.4, Calcium Level 7.5 L, Aspartate Amino Transf (AST/SGOT) 2253 H, Alanine Aminotransferase (ALT/SGPT) 1153 H, Alkaline Phosphatase 60, Total Bilirubin 1.1 H, Total Protein 6.0 L, Albumin 1.7 L, Phosphorus Level 6.5 H, Lactate Dehydrogenase 4864 H, Total Creatine Kinase 253 #, Triglycerides Level 135, Cholesterol Level 99 Vital Signs Date Time Temp Pulse Resp B/P (MAP) Pulse Ox O2 Delivery O2 Flow Rate FiO2 02/19/18 09:00 112 22 95 80 02/19/18 09:00 89/54 (66) Ventilator 02/19/18 08:15 96.5 I&O- Last 24 Hours up to 6 AM 02/19/18 05:59 Intake Total 900 ml Output Total 100 ml Balance 800 ml SANDRA LARA MD Feb 19, 2018 10:15
--- NOTE | 2018-02-19 10:45 | RO ---
DATE OF PROCEDURE: 02/19/2018 PREPROCEDURE DIAGNOSIS: Hypotension. POSTPROCEDURE DIAGNOSIS: Hypotension. PROCEDURE: Insertion of triple lumen central venous catheter, site is right subclavian vein. SURGEON: Dr. King Austin PHYSICAL THERAPIST CLINIC DIRECTOR: ANESTHESIA: 1% Xylocaine given locally. The procedure was performed emergently. DESCRIPTION OF PROCEDURE: After the usual time-out was performed, the right subclavian area was prepped and draped in the usual sterile manner. Area was anesthetized with 1% Xylocaine. Using a large bore needle, the right subclavian vein was easily cannulated. In a modified Seldinger technique, a triple lumen central venous catheter was easily placed. Good venous return was obtained from all three ports. Each port was then flushed. Line was then sutured in place and a sterile dressing was applied. Chest x-ray done postprocedure shows no pneumothorax and the line in good position. No complications noted.
[2018-02-19] MEDS: PIPERACILLIN/TAZOBACTAM SOD 2.25 GM in D5W MINI-BAG PLUS 50 ML IV SCH ×3 (11:06→21:53)
--- NOTE | 2018-02-19 11:17 | CCN ---
CRITICAL CARE CONTINUATION/ADDENDUM: DATE: 02/19/2018 TIME: 1035 I had a long discussion at the bedside with his niece who brought in two separate medical order of life-sustaining treatment (MOLST) forms, one from 2010 and one from 2016, both of which clearly state he did not want to be intubated, coded or have feeding tubes placed. None of that was available at the time of his events this morning. It was not presented at the time of his admission. I also had a lengthy conversation by phone with his brother Jakub who is the healthcare proxy according the niece at the bedside and Jakub by phone. I discussed the current situation with him. The patient had at least nodded to me that he is comfortable with where we are at currently. The healthcare proxy said the family has discussed this and they are comfortable with where he is at. We also reviewed the fact that he is already on the maximum dose of three separate vasopressors and should he have further deterioration in his status, I have unfortunately nothing further clinically to offer. After our discussion he decided that the DO NOT RESUSCITATE (DNR) should be in place as per the patient's wishes and that at least for now we will continue our current level of activity and intervention, but should he have further deterioration of status, no new interventions will be added. We will assure that he is comfortable. He continues on heparin drip empirically should this be an embolic event as well as primary cardiac ischemia. He is on several broad spectrum antimicrobials. He is currently on vasopressin, Levophed and epinephrine as well as aggressive IV volume resuscitation. Repeat labs are pending. His prognosis is grave in view of the above and we will proceed as per the family wishes per the healthcare proxy and clearly the patient's prior wishes. We have two separate MOLST forms.
[2018-02-19] MEDS ORDERED: VANCOMYCIN HCL 1,000 MG, VIAL MATE ADAPTER 1 EACH in D5W 250 ML IV ONE (12:00)
[2018-02-19 12:16] LABS: ABG BASE EXCESS -15.6 (-2.0-2.0); ABG HCO3 11.2 MEQ/L (22.0-26.0); ABG O2 SATURATION 95.8 % (95.0-99.0); ABG PARTIAL PRESSURE CO2 29.8 mmHg (35.0-45.0); ABG PARTIAL PRESSURE O2 98.5 mmHg (75.0-100.0); ABG STANDARD HCO3 12.5 MEQ/L (22.0-26.0); ABG TOTAL CO2 12.1 MEQ/L (23.0-31.0)
[2018-02-19 12:19] LABS: ABG SITE RT BRACHIAL; ABG pH (ARTERIAL) 7.194 UNITS (7.350-7.450)
[2018-02-19] MEDS: NOREPINEPHRINE BITARTRATE 8 MG in D5W 492 ML IV SCH ×4 (12:31→23:08)
[2018-02-19] MEDS: methylPREDNISolone INJ 125 MG/2 ML VIAL (J2930) IV SCH ×2 (12:32→18:50)
[2018-02-19 12:46] LABS: MB/CK RELATIVE INDEX 2.79 (< OR =4); TROPONIN I 3.74 NG/ML (< 0.10)
[2018-02-19] MEDS: PANTOPRAZOLE 40MG INJ (PROTONIX) (C9113) IV SCH (13:20)
[2018-02-19] MEDS: SODIUM BICARBONATE 150 MEQ in D5W 1,000 ML IV SCH ×2 (13:20→21:52)
[2018-02-19] MEDS: CHLORHEXIDINE GLUCONATE 0.12 % 15ML UDC (PERIDEX ORAL RINSE) MT SCH ×2 (13:20→20:37)
--- NOTE | 2018-02-19 13:28 | ECGEPIP ---
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 Somewhat low precordial voltage with incomplete RBBB and slow precordial R-wave progression; body habitus versus pulmonary disease. Could not rule out prior AWMI. Extreme left axis deviation - left anterior hemiblock. Could not rule out prior inferior infarction. Diffuse ST/T-wave abnormalities. More marked repolarization abnormalities and new incomplete RBBB from 06/19/16. Clinical correlation advised. Electronically Signed On 02-19-2018 13:28:21 EST by Ra Rodriguez
--- NOTE | 2018-02-19 13:34 | ECGEPIP ---
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 Extreme left axis deviation - left anterior hemiblock Low voltages with incomplete RBBB, slow precordial R-wave progression and persistent S waves V5 and V6; body habitus versus pulmonary disease. Rule out prior anterior/inferior injuries. ST/T-wave abnormalities diffusely Other than faster rate, not dramatically changed from earlier the same day. Electronically Signed On 02-19-2018 13:34:36 EST by Ra Rodriguez
--- NOTE | 2018-02-19 13:37 | ECGEPIP ---
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 Rule out prior AWMI/IWMI. ST/T-wave abnormalities. No change from 02/19/18 at 955 hours Electronically Signed On 02-19-2018 13:37:23 EST by Ra Rodriguez
[2018-02-19] MEDS ORDERED: MIDAZOLAM INJ 2 MG/2 ML VIAL (J2250) IV STA (14:42)
[2018-02-19] MEDS ORDERED: ATROPINE SULF 1MG/10ML SYRINGE (J0461) IV STA (14:42)
[2018-02-19] MEDS ORDERED: EPINEPHrine 1MG/10ML SYRINGE 1.5IN IV STA (14:42)
[2018-02-19] MEDS ORDERED: NALOXONE INJ 0.4 MG/1 ML VIAL (J2310) IV STA ×2 (14:42)
[2018-02-19] MEDS ORDERED: SODIUM BICARBONATE 8.4% INJ 50 ML SYRINGE IV STA ×3 (14:42→20:12)
[2018-02-19] MEDS ORDERED: VANCOMYCIN HCL 1,000 MG, VIAL MATE ADAPTER 1 EACH in D5W 250 ML IV SCH (15:00)
[2018-02-19 15:22] LABS: ABG BASE EXCESS -16.6 (-2.0-2.0); ABG HCO3 10.6 MEQ/L (22.0-26.0); ABG O2 SATURATION 97.5 % (95.0-99.0); ABG PARTIAL PRESSURE CO2 29.9 mmHg (35.0-45.0); ABG PARTIAL PRESSURE O2 115.9 mmHg (75.0-100.0); ABG STANDARD HCO3 11.8 MEQ/L (22.0-26.0); ABG TOTAL CO2 11.5 MEQ/L (23.0-31.0)
[2018-02-19 15:25] LABS: ABG SITE LT RADIAL; ABG pH (ARTERIAL) 7.168 UNITS (7.350-7.450)
[2018-02-19] MEDS: VASOPRESSIN INJ 20 UNITS in NS 499 ML IV SCH ×2 (17:01→21:53)
[2018-02-19] MEDS: MORPHINE 4 MG/ML 1ML VIAL/SYRINGE (J2270) IV PRN ×2 (17:15→21:40)
[2018-02-19] MEDS: MIDAZOLAM INJ 2 MG/2 ML VIAL (J2250) IV PRN ×3 (17:32→21:35)
[2018-02-19 18:15] LABS: ABG BASE EXCESS -15.2 (-2.0-2.0); ABG HCO3 12.6 MEQ/L (22.0-26.0); ABG O2 SATURATION 84.7 % (95.0-99.0); ABG PARTIAL PRESSURE CO2 36.7 mmHg (35.0-45.0); ABG PARTIAL PRESSURE O2 61.8 mmHg (75.0-100.0); ABG STANDARD HCO3 12.6 MEQ/L (22.0-26.0); ABG TOTAL CO2 13.7 MEQ/L (23.0-31.0)
[2018-02-19 18:17] LABS: ABG pH (ARTERIAL) 7.154 UNITS (7.350-7.450)
[2018-02-19 19:41] LABS: MB/CK RELATIVE INDEX 2.54 (< OR =4); TROPONIN I 6.52 NG/ML (< 0.10)
[2018-02-19 19:51] LABS: CALCIUM LEVEL 6.5 MG/DL (8.8-10.2); CREATININE FOR GFR 3.53 MG/DL (0.70-1.30); GLOMERULAR FILTRATION RATE 18.9 (>49); PHOSPHORUS LEVEL 6.8 MG/DL (2.5-4.9); POTASSIUM SERUM 4.9 MEQ/L (3.5-5.1)
[2018-02-20] VITALS (47 sets, daily range): BP systolic 62–130; BP diastolic 33–84
[2018-02-20] MEDS: methylPREDNISolone INJ 125 MG/2 ML VIAL (J2930) IV SCH ×4 (01:43→17:08)
[2018-02-20] MEDS: MIDAZOLAM INJ 2 MG/2 ML VIAL (J2250) IV PRN ×4 (01:48→16:34)
[2018-02-20 03:56] LABS: HEMATOCRIT 27.9 % (42.0-52.0); HEMOGLOBIN 9.3 g/dl (13.5-17.5); LYMPH # 0.6 10^3/uL (1.5-4.5); MEAN CORPUSCULAR HEMOGLOBIN 32.1 pg (27.0-33.0); MEAN CORPUSCULAR HGB CONC 33.3 g/dl (32.0-36.5); MEAN CORPUSCULAR VOLUME 96.2 fl (80.0-96.0); MONO # 0.2 10^3/uL (0.0-0.8); MONO % 3.8 % (0.0-5.0); NEUTROPHILS % 85.5 % (36.0-66.0); WHITE BLOOD COUNT 5.8 10^3/uL (4.0-10.0)
[2018-02-20] MEDS: PIPERACILLIN/TAZOBACTAM SOD 2.25 GM in D5W MINI-BAG PLUS 50 ML IV SCH ×4 (04:20→22:43)
[2018-02-20] MEDS: NS 1,000 ML IV SCH ×2 (04:20→16:34)
[2018-02-20 04:43] LABS: PLATELET COUNT, AUTOMATED 67 10^3/uL (150-450)
[2018-02-20 05:42] LABS: ALBUMIN 1.5 GM/DL (3.2-5.2); BILIRUBIN,TOTAL 1.3 MG/DL (0.2-1.0); C REACTIVE PROTEIN QUANTITATIV 10.5 MG/DL (0.00-0.30); CREATININE FOR GFR 3.77 MG/DL (0.70-1.30); GLOMERULAR FILTRATION RATE 17.5 (>49); MAGNESIUM LEVEL 1.6 MG/DL (1.8-2.4); MB/CK RELATIVE INDEX 1.64 (< OR =4)
[2018-02-20 05:43] LABS: PHOSPHORUS LEVEL 4.8 MG/DL (2.5-4.9); TROPONIN I 5.21 NG/ML (< 0.10)
[2018-02-20] MEDS: SODIUM BICARBONATE 150 MEQ in D5W 1,000 ML IV SCH (05:45)
[2018-02-20 05:47] LABS: ABG BASE EXCESS 3.5 (-2.0-2.0); ABG HCO3 26.3 MEQ/L (22.0-26.0); ABG PARTIAL PRESSURE CO2 33.3 mmHg (35.0-45.0); ABG PARTIAL PRESSURE O2 176.7 mmHg (75.0-100.0); ABG STANDARD HCO3 27.7 MEQ/L (22.0-26.0); ABG TOTAL CO2 27.4 MEQ/L (23.0-31.0); ABG pH (ARTERIAL) 7.516 UNITS (7.350-7.450)
[2018-02-20] MEDS: MORPHINE 4 MG/ML 1ML VIAL/SYRINGE (J2270) IV PRN ×3 (06:38→20:15)
--- NOTE | 2018-02-20 07:30 | REP ---
Clinical: Respiratory failure. Comparison: 02/19/2018. Findings: Endotracheal tube 3 cm above the brian. Nasogastric tube courses below left hemidiaphragm. Right PICC line with tip in the SVC. Evaluation is significantly limited by portable technique, underpenetration, and poor inspiratory effort which accentuate the pulmonary vasculature and interstitium. Stable cardiomegaly along with perihilar and bibasilar opacities (left greater than right) appear to be increased from prior examination including findings to suggest pleural effusions (left greater than right). Impression: 1. Lines and tubes in satisfactory position. 2. Findings suggest atelectasis/pneumonia versus pulmonary vascular congestion/interstitial edema, and appears slightly increased when compared to prior. Electronically Signed by Compa Riggs MD 02/20/2018 07:23 A
[2018-02-20] MEDS: NOREPINEPHRINE BITARTRATE 8 MG in D5W 492 ML IV SCH ×6 (08:35→17:11)
[2018-02-20 10:01] LABS: ABG BASE EXCESS 2.8 (-2.0-2.0); ABG HCO3 28.6 MEQ/L (22.0-26.0); ABG O2 SATURATION 71.2 % (95.0-99.0); ABG PARTIAL PRESSURE CO2 49.3 mmHg (35.0-45.0); ABG STANDARD HCO3 26.5 MEQ/L (22.0-26.0); ABG TOTAL CO2 30.1 MEQ/L (23.0-31.0); ABG pH (ARTERIAL) 7.381 UNITS (7.350-7.450)
[2018-02-20 10:37] LABS: ABG BASE EXCESS 3.3 (-2.0-2.0); ABG HCO3 27.5 MEQ/L (22.0-26.0); ABG O2 SATURATION 99.1 % (95.0-99.0); ABG PARTIAL PRESSURE CO2 40.1 mmHg (35.0-45.0); ABG PARTIAL PRESSURE O2 193.9 mmHg (75.0-100.0); ABG STANDARD HCO3 27.5 MEQ/L (22.0-26.0); ABG TOTAL CO2 28.7 MEQ/L (23.0-31.0); ABG pH (ARTERIAL) 7.454 UNITS (7.350-7.450)
[2018-02-20] MEDS: PANTOPRAZOLE 40MG INJ (PROTONIX) (C9113) IV SCH (10:40)
[2018-02-20] MEDS: CHLORHEXIDINE GLUCONATE 0.12 % 15ML UDC (PERIDEX ORAL RINSE) MT SCH ×2 (10:40→20:17)
[2018-02-20] MEDS: CEFTAROLINE FOSAMIL 400 MG in D5W MINI-BAG PLUS 50 ML IV SCH ×2 (10:41→20:15)
--- NOTE | 2018-02-20 11:44 | CCN ---
DATE: 02/20/2018 START TIME: 07 hours STOP TIME: 0805 hours I again attended Rocio Eng here in the intensive care unit. He does remain on sedation and he is intubated and mechanically ventilated. He is easily arousable and follows commands. Maximum temperature (Tmax) overnight 98.2, blood pressure 60-130s, heart rate 60-90s with intermittent block, mainly second-degree. Respiratory rate anywhere from 15-22. He has had minimal urine output overnight. Total intake 9541 mL. Chest x-ray shows no new findings. Lines and tubes in good position. Most recent laboratories show a white blood count of 5.8, hemoglobin 9.3, platelet count of 67,000, down from 133,000 yesterday, sodium 133, potassium 4.0, chloride 96, CO2 24, BUN 40, creatinine 3.77, glucose 348. Magnesium mildly low at 1.6, bilirubin mildly elevated at 1.3. AST, ALT high at 16,882 and 4,696, respectively. LDH high at 21,278. Troponin peaked yesterday at 6.52, down to 5.21 today. Blood gas done on a PRVC rate of 20, tidal volume of 500, PEEP of 5, FiO2 50% has a pH of 7.5416, pCO2 at 33.3, and a pO2 of 176.7. Cultures from his wound are polymicrobial and includes both Pseudomonas and a group C Streptococcus as well as Staphylococcus aureus and a Corynebacterium. A urine from several days ago has a Citrobacter. At one point he was able to be weaned from all three vasopressors, but is currently on low dose Levophed. On exam, he is awake, alert, appropriate, and follows all commands and interacts appropriately. On questioning, states mainly some chest discomfort. Pupils react, sclerae clear, trachea is in the midline. Chest again shows lawson from his defibrillation. Breath sounds are bilaterally equal. Occasional rhonchus. Cardiac exam distant and regular. Peripheral pulses are diminished but are palpable. Abdomen morbidly obese, soft, there are active bowel sounds, no convincing organomegaly or masses. Extremities show his chronic venous stasis changes and dressings in place on the left. The most pressing problems requiring my presence at the bedside: 1. Metabolic acidosis. 2. Sepsis with shock. 3. Coronary artery disease status post multiple max carts. 4. Positive troponins. 5. Thrombocytopenia. 6. Renal failure. In view of his progress regarding his acidosis, we will markedly diminish his rate of his bicarbonate drip. He is only on minimal pressors at this point. Ventilator manipulations have been made as well. In view of his thrombocytopenia and his negative ultrasound of the leg for clot, I will consider getting cardiology involved in his care at some point, although at this point he is not a candidate for transfer for instrumentation due to his overall status and his renal failure. Initially, he told me he would not at all consider dialysis, but now is shaking his head to a maybe. Should he have worsening of his renal function, I will get nephrology involved. We will honor his DO NOT RESUSCITATE status. At this point, in view of his multiorgan dysfunction his prognosis is guarded at best. We will proceed as outlined above. Hopefully, we can make some further ventilator manipulations in the next 24-48 hours. I left the bedside at 0805 hours. 34 minutes of critical care time delivered at the bedside not including procedures. ANU
[2018-02-20 14:00] LABS: MB/CK RELATIVE INDEX 1.46 (< OR =4); TROPONIN I 5.61 NG/ML (< 0.10)
[2018-02-21] VITALS (70 sets, daily range): BP systolic 79–146; BP diastolic 50–96; O2SAT 93–96
[2018-02-21] MEDS: SODIUM BICARBONATE 150 MEQ in D5W 1,000 ML IV SCH (00:08)
[2018-02-21] MEDS: methylPREDNISolone INJ 125 MG/2 ML VIAL (J2930) IV SCH ×2 (00:08→06:25)
[2018-02-21] MEDS: MORPHINE 4 MG/ML 1ML VIAL/SYRINGE (J2270) IV PRN ×4 (00:11→14:47)
[2018-02-21] MEDS: NS 1,000 ML IV SCH ×2 (04:53→14:48)
[2018-02-21] MEDS: PIPERACILLIN/TAZOBACTAM SOD 2.25 GM in D5W MINI-BAG PLUS 50 ML IV SCH ×4 (04:53→22:23)
[2018-02-21 05:14] LABS: HEMATOCRIT 28.5 % (42.0-52.0); HEMOGLOBIN 9.6 g/dl (13.5-17.5); LYMPH # 0.5 10^3/uL (1.5-4.5); LYMPH % 6.9 % (24.0-44.0); MEAN CORPUSCULAR HGB CONC 33.7 g/dl (32.0-36.5); MONO # 0.2 10^3/uL (0.0-0.8); NEUTROPHILS # 5.9 10^3/uL (1.8-7.7); NEUTROPHILS % 89.2 % (36.0-66.0); WHITE BLOOD COUNT 6.6 10^3/uL (4.0-10.0)
[2018-02-21 05:15] LABS: PLATELET COUNT, AUTOMATED 77 10^3/uL (150-450)
[2018-02-21 05:22] LABS: ABG BASE EXCESS 3.7 (-2.0-2.0); ABG HCO3 27.5 MEQ/L (22.0-26.0); ABG O2 SATURATION 97.5 % (95.0-99.0); ABG PARTIAL PRESSURE CO2 38.4 mmHg (35.0-45.0); ABG PARTIAL PRESSURE O2 104.5 mmHg (75.0-100.0); ABG STANDARD HCO3 27.8 MEQ/L (22.0-26.0); ABG TOTAL CO2 28.7 MEQ/L (23.0-31.0); ABG pH (ARTERIAL) 7.473 UNITS (7.350-7.450)
[2018-02-21 06:14] LABS: ALBUMIN 1.7 GM/DL (3.2-5.2); BILIRUBIN,TOTAL 1.4 MG/DL (0.2-1.0); C REACTIVE PROTEIN QUANTITATIV 9.7 MG/DL (0.00-0.30); CALCIUM LEVEL 5.5 MG/DL (8.8-10.2); CREATININE FOR GFR 4.58 MG/DL (0.70-1.30); MAGNESIUM LEVEL 1.5 MG/DL (1.8-2.4); PHOSPHORUS LEVEL 4.9 MG/DL (2.5-4.9); POTASSIUM SERUM 4.8 MEQ/L (3.5-5.1); TOTAL PROTEIN 5.3 GM/DL (6.4-8.2)
--- NOTE | 2018-02-21 06:22 | ECHO ---
DATE OF PROCEDURE: 02/19/2018 AGE: 62 GENDER: Male REFERRING PHYSICIAN: Dr. Jack Morales HEIGHT: 72 inches. WEIGHT: 368 pounds. BODY SURFACE AREA: 2.76 sq m. INPATIENT: Intensive care unit (ICU) Room 3207 INDICATION: Post cardiac arrest. Abnormal EKG. MEASUREMENTS: 2D MEASUREMENTS: RV - 5.4 cm LV- 5.2 cm Septum - 1.3 cm Posterior wall - 1.3 cm Aortic root - 3.8 cm LA - 3.9 cm LVEF - 55%?? DOPPLER MEASUREMENTS: AV - 1.29 m/s LVOT - 0.52 m/s MV-E: 51 A: 36 EA ratio 1.4 Early mitral deacceleration time - 113 ms E-prime - 5.2 A-prime - 6.6 E/E prime ratio 9.8 RVSP - 52-57 mmHg IVC - 2.5 cm COMMENTS: Study was performed in the ICU with the patient on ventilator. Normal sinus rhythm/sinus tachycardia without intraventricular conduction disturbance. Extremely technically difficult in light of the patient's body habitus and ventilator dependence. Mild concentric left ventricular hypertrophy with currently normal global systolic function? Left atrial size upper limits of normal with Doppler evidence of a degree of LV diastolic dysfunction but currently normal estimated mean left atrial pressure. Prominently dilated right heart chambers with hypokinesis of the right ventricular free wall and at least moderate pulmonary hypertension. Mildly dilated aortic IVC suggestive of an elevated central venous pressure. Valvular structures appeared to be normal, yet low flow appearance. Borderline dilated aortic root. No apparent intracardiac mass or pericardial effusion. cc: King Austin MD MTDJames
--- NOTE | 2018-02-21 08:05 | REP ---
Portable chest x-ray: Single view. History: Respiratory failure. Comparison study: February 20, 2018. Findings: Endotracheal tube is seen in good position. The patient is rotated somewhat to the left for the current exposure. A right internal jugular line terminates in the expected location of the superior vena cava. Nasogastric tube enters the left upper quadrant of the abdomen. There is hazy opacity in the bases bilaterally which may reflect small pleural effusions. No new infiltrate. Electronically Signed by Catracho Santana MD 02/21/2018 07:56 A
[2018-02-21] MEDS: PANTOPRAZOLE 40MG INJ (PROTONIX) (C9113) IV SCH (08:43)
[2018-02-21] MEDS: CEFTAROLINE FOSAMIL 400 MG in D5W MINI-BAG PLUS 50 ML IV SCH ×2 (08:43→21:58)
[2018-02-21] MEDS: CHLORHEXIDINE GLUCONATE 0.12 % 15ML UDC (PERIDEX ORAL RINSE) MT SCH ×2 (08:45→21:58)
[2018-02-21] MEDS ORDERED: FUROSEMIDE 100 MG/10 ML VIAL (J1940) IV ONE (10:00)
--- NOTE | 2018-02-21 10:20 | CCN ---
DATE: 02/21/2018 START TIME: 839 STOP TIME: 914 I again attended Rocio Eng here in the intensive care unit. The patient has been examined and the chart reviewed. He remains awake, alert and appropriate and follows all commands. T-max overnight 97.1. Blood pressure 80 to 130s. Heart rate generally 50s to 60s with a sinus mechanism, occasional ectopy. Respiratory rate 15-20. Ins and Outs: 4405 mL in with 610 mL out. We have been able to decrease his dose of Levophed as well. The most recent laboratories show a blood gas done on a PRVC, rate of 15, tidal volume 500, PEEP of 8, FiO2 of 40%, has a pH of 7.473, pCO2 33.4, pO2 of 104.5. Sodium 135, potassium 4.8, chloride 96, CO2 30, BUN 57, creatinine 4.58. Calcium 5.5 with an albumin of 1.7 which gives him a corrected calcium of around 7. Glucose 140. AST improved from yesterday down to 5817. ALT also improved down to 3642. LDH down to 6661. White blood cell count 6.6, hemoglobin 9.6, platelet count 77,000, 89% segs, 0 bands. Chest x-ray shows no new findings. On exam, he is awake, alert and appropriate, follows all commands. Pupils react. Sclerae are clear. Trachea is in the midline. Chest shows symmetric expansion, lung hayden are clear. No wheeze or rhonchus. There is maybe some basilar crackles. Cardiac exam distant, generally regular. Peripheral pulses markedly diminished. His edema is unchanged. Abdomen morbidly obese with active bowel sounds. Extremities show the dressing on his left lower extremity. Chronic ischemic changes of both feet unchanged. Neurologically he is awake, alert and appropriate. Moves all extremities. Psychiatric: Normal mood and affect. The most pressing problems requiring my presence at the bedside are: 1. Respiratory failure with mechanical ventilatory support. 2. Metabolic acidosis with diminishing demands. 3. Renal failure, mildly progressive. 4. Sepsis with shock. 5. Insulin dependent diabetes mellitus. 6. Chronic venous stasis with chronic wounds. In view of the above, we will discontinue with his bicarbonate drip. Ventilator changes have been made. We will begin enteral feeds. I will reassess his wound today as he had been following closely with Dr. Perera for that. He has been able to make some urine and hopefully we will see an improvement in that. Will give some low dose Lasix today. He has diminishing fluid demands as well as pressor requirements. Will continue his current medications. I will decrease his additional steroids as well. Overall he does remain critically ill. His prognosis still remains guarded at best. I left the bedside at 0915 hours. 35 minutes of critical care time delivered at the bedside, not including procedures.
[2018-02-21 10:29] LABS: ABG BASE EXCESS 2.8 (-2.0-2.0); ABG HCO3 26.9 MEQ/L (22.0-26.0); ABG PARTIAL PRESSURE CO2 39.6 mmHg (35.0-45.0); ABG PARTIAL PRESSURE O2 98.9 mmHg (75.0-100.0); ABG STANDARD HCO3 26.9 MEQ/L (22.0-26.0); ABG TOTAL CO2 28.1 MEQ/L (23.0-31.0)
[2018-02-21] MEDS ORDERED: SODIUM CHLORIDE 0.9% INJ 10 ML SYR IV PRN (14:15)
[2018-02-21] MEDS: methylPREDNISolone INJ 40 MG/1 ML VIAL (J2920) IV SCH ×2 (14:48→22:23)
[2018-02-21] MEDS: NOREPINEPHRINE BITARTRATE 8 MG in D5W 492 ML IV SCH (18:24)
[2018-02-21] MEDS ORDERED: CALCIUM GLUCONATE 1,000 MG in D5W MINI-BAG PLUS 100 ML IV ONE (18:30)
--- NOTE | 2018-02-21 19:13 | CR ---
DATE OF CONSULTATION: 02/21/2018 REASON FOR CONSULTATION: Anuric acute renal failure superimposed on chronic kidney disease in this gentleman who had multiple episodes of cardiac arrest and has respiratory failure. HISTORY OF PRESENT ILLNESS Mr. Eng is a 62-year-old gentleman who is morbidly obese and was admitted to [facility] on February 18. He fell at home and injured his left knee due to which he was admitted. However, within 24 hours of admission he had unresponsive episode and was found to be in cardiac arrest. He had prolonged resuscitation and required recurrent CPR. He was intubated and has been transferred to intensive care unit where he had further couple of episodes of cardiac arrest and required further CPR. He has been on three pressors following resuscitation including Levophed, epinephrine. He is now off epinephrine and vasopressor however, still on low-dose Levophed. The patient has been oliguric and nephrology consultation was requested today. He has intake and output records show a total positive fluid balance of about 15.8 liters. The patient is awake now and responds to questions appropriately by nodding his head as he still cannot talk due to endotracheal tube. PAST MEDICAL AND SURGICAL HISTORY Significant for 1. Morbid obesity. 2. Chronic kidney disease. 3. Chronic back pain with history of spinal cord injury in 2001. 4. Chronic left lower extremity ulcerations followed by wound clinic. 5. Depression. 6. Peripheral arterial disease. 7. Chronic venous stasis. PAST SURGICAL HISTORY: Significant for 1. Hernia repair. 2. Skin grafting of left lower extremity for chronic nonhealing ulcer. MEDICATIONS: His home medications include - fluoxetine 20 mg daily - multivitamin tablet daily - ferrous sulfate 325 mg daily - metoprolol 50 mg twice a day - omeprazole 20 mg daily - Lyrica 100 mg twice a day - Flomax 0.4 mg daily - trazodone 100 mg at bedtime. He was also taking baclofen and Ambien as needed. ALLERGIES: The patient has NO KNOWN DRUG ALLERGIES. PERSONAL AND SOCIAL HISTORY: Does have history of tobacco use but denies any recreational drug use. He is wheelchair bound due to his spinal cord injury and morbid obesity. FAMILY HISTORY: Is noncontributory and there is no family history for end-stage renal disease. REVIEW OF SYSTEMS: The patient is currently intubated and awake and able to understand and answer questions by nodding his head. There is no fever or chills at present and he has been on broad-spectrum antibiotics. He was resuscitated at least five times due to recurrent cardiac arrhythmias or cardiac arrest. Respiratory system is significant for respiratory failure requiring intubation and mechanical ventilation. GI system is negative for any abdominal pain or vomiting. He has an endotracheal tube with tube feeding in progress. Musculoskeletal system is significant for nonhealing ulcer on left lower extremity which is covered with dressing. Endocrine system is negative for diabetes or thyroid problems known. Hematological system is significant for anemia. Psychosocial system is significant for depression. Neurological system is significant for spinal cord injury and inability to ambulate. He has been wheelchair bound. Skin is significant for chronic nonhealing ulcer of left lower extremity. PHYSICAL EXAMINATION: This morbidly obese gentleman who is on the mechanical ventilation via endotracheal tube. He also has a nasogastric tube in place. Temperature is 96.5 degrees Fahrenheit, heart rate 56 per minute and respiratory rate 16 per minute. Blood pressure 116/72 mmHg and oxygen saturation 96% on 35% oxygen on the ventilator. His head is atraumatic. Pupils are equal and reactive to light and sclera is anicteric. Neck is supple and JVD seems to be elevated though difficult to be measured accurately. His heart sounds are distant but regular. Lungs: Have good bilateral air entry. He is oxygenating very well. Abdomen is obese and nontender. Bowel sounds are normal. Extremities have no cyanosis or clubbing. Left lower leg is wrapped in dressing. He has chronic stasis changes and lower extremity edema is noted. Neurologically he is awake and responds to questions appropriately. LABORATORY DATA: His initial labs on admission showed a BUN of 19 and creatinine 1.54. Sodium was 134 and potassium 4.7. On February 19 his BUN was 28 and creatinine 2.6, potassium level 5.5 and sodium 134. The same day later BUN 30 and creatinine 2.78. His lactic acid level was as high as 13.2 on February 19. Most recent labs from this morning showed sodium 135, potassium 4.8, CO2 of 30, BUN 57 and creatinine 4.58. Glucose 140 and calcium 5.5 with albumin level of 1.7. Yesterday his AST was 16,882 and ALT 4696. His LDH was 21,278 and troponin 5.2. Today his AST is down to 5817 and ALT down to 3642. His LDH is 6661 and total CPK is 404. His blood gas this morning showed a pH of 7.47, pCO2 38.4, pO2 104.5 and bicarb 27.8. Urinalysis on admission showed 1+ blood and 1+ protein. He has multiple chest x-rays done and most recent one from this morning showed endotracheal tube in good position. The right internal jugular vein central line in the superior vena cava and nasogastric tube and left upper quadrant of abdomen. There is hazy opacification of the bases bilaterally with possible pleural effusion on the right side. PROBLEMS: 1. Anuric acute renal failure superimposed on chronic kidney disease. The patient has stage III of chronic kidney disease. Baseline he developed acute renal failure due to recurrent cardiac arrest and hypotension requiring three pressors. He is still on low-dose Levophed and has improved significantly. He was already given a dose of Lasix 80 mg this morning by Dr. Austin, however, no urine output noted so far. He is about positive 15.8 liters since admission. At this point fortunately he does not have any metabolic acidosis and in fact he was alkalotic this morning due to which sodium bicarbonate drip has been stopped. He is oxygenating well with 35% oxygen on the ventilator. It is quite likely that he has developed acute tubular necrosis and likely to require dialysis. Dr. Austin reports that earlier he was declining dialysis but now he seems to be accepting it. I have discussed with him and explained to him about potential need of dialysis on his bedside. I feel that at this point there is no emergent need for dialysis today and though patient has accepted we will wait for 24 hours. I will reevaluate him tomorrow morning for need for dialysis. At this point we will not try further diuretic as it is less likely to work. 2. Hypocalcemia. His corrected coag calcium is still lower than normal range. We will give him one dose of calcium gluconate and recheck his renal panel tomorrow morning. 3. Elevated liver enzymes most likely this is result of shock liver and his liver enzymes are already improving. Should be repeated again tomorrow morning. 4. Anemia. The patient is significantly volume overloaded with positive fluid balance of more than 15 liters. His anemia has worsened most likely related to multiple factors including hemodilution and acute renal failure. There is no emergent indication for a transfusion at present. 5. Respiratory failure. The patient is ventilator dependent. However, requiring only 35% oxygen. We will not be able to take off too much fluid if we try to dialyze him due to hypotension. I do not feel that there is any emergent indication for starting CRRT at present. Thank you for involving me in the care of Mr. Eng. I will follow him along with you.
[2018-02-21] MEDS: MIDAZOLAM INJ 2 MG/2 ML VIAL (J2250) IV PRN ×2 (21:53→22:19)
[2018-02-21] MEDS: NYSTATIN 100,000 UNITS/GM TOPICAL PWD 15 GM TOP SCH (21:58)
[2018-02-21] MEDS: SODIUM CHLORIDE 0.9% INJ 10 ML SYR IV SCH (21:59)
[2018-02-21] MEDS: SLF 3 ML SYR IV SCH (21:59)
[2018-02-22] VITALS (31 sets, daily range): BP systolic 100–182; BP diastolic 56–110
[2018-02-22] MEDS: NS 1,000 ML IV SCH (00:12)
[2018-02-22] MEDS: PIPERACILLIN/TAZOBACTAM SOD 2.25 GM in D5W MINI-BAG PLUS 50 ML IV SCH ×4 (04:10→23:54)
[2018-02-22 05:30] LABS: BASO % 0.2 % (0.0-1.0); HEMATOCRIT 27.6 % (42.0-52.0); HEMOGLOBIN 9.2 g/dl (13.5-17.5); LYMPH # 0.4 10^3/uL (1.5-4.5); LYMPH % 6.3 % (24.0-44.0); MEAN CORPUSCULAR HEMOGLOBIN 32.3 pg (27.0-33.0); MEAN CORPUSCULAR HGB CONC 33.3 g/dl (32.0-36.5); MEAN CORPUSCULAR VOLUME 96.8 fl (80.0-96.0); MONO # 0.2 10^3/uL (0.0-0.8); MONO % 3.6 % (0.0-5.0); NEUTROPHILS # 5.4 10^3/uL (1.8-7.7); NEUTROPHILS % 89.4 % (36.0-66.0); RED BLOOD COUNT 2.85 10^6/uL (4.30-6.10); WHITE BLOOD COUNT 6.1 10^3/uL (4.0-10.0)
[2018-02-22 05:31] LABS: PLATELET COUNT, AUTOMATED 66 10^3/uL (150-450)
[2018-02-22 05:46] LABS: ABG BASE EXCESS 0.5 (-2.0-2.0); ABG HCO3 25.5 MEQ/L (22.0-26.0); ABG O2 SATURATION 94.9 % (95.0-99.0); ABG PARTIAL PRESSURE CO2 42.6 mmHg (35.0-45.0); ABG PARTIAL PRESSURE O2 81.4 mmHg (75.0-100.0); ABG STANDARD HCO3 24.9 MEQ/L (22.0-26.0); ABG TOTAL CO2 26.8 MEQ/L (23.0-31.0); ABG pH (ARTERIAL) 7.395 UNITS (7.350-7.450)
[2018-02-22 06:06] LABS: ALBUMIN 1.7 GM/DL (3.2-5.2); ALT/SGPT 2619 U/L (12-78); BILIRUBIN,TOTAL 1.4 MG/DL (0.2-1.0); BLOOD UREA NITROGEN 71 MG/DL (7-18); C REACTIVE PROTEIN QUANTITATIV 6.82 MG/DL (0.00-0.30); CALCIUM LEVEL 5.4 MG/DL (8.8-10.2); CARBON DIOXIDE LEVEL 29 MEQ/L (21-32); CHLORIDE LEVEL 95 MEQ/L (98-107); CHOLESTEROL LEVEL 85 MG/DL (< 200); CPK CREATINE PHOSPHOKINASE 220 U/L (39-308); CREATININE FOR GFR 5.49 MG/DL (0.70-1.30); GLOMERULAR FILTRATION RATE 11.3 (>49); GLUCOSE, FASTING 149 MG/DL (70-100); LDH LACTATE DEHYDROGENASE 1369 U/L (87-241); MAGNESIUM LEVEL 1.8 MG/DL (1.8-2.4); PHOSPHORUS LEVEL 6.3 MG/DL (2.5-4.9); POTASSIUM SERUM 5.3 MEQ/L (3.5-5.1); SODIUM LEVEL 134 MEQ/L (136-145); TOTAL PROTEIN 4.9 GM/DL (6.4-8.2); TRIGLYCERIDES LEVEL 144 MG/DL (<150)
[2018-02-22] MEDS: methylPREDNISolone INJ 40 MG/1 ML VIAL (J2920) IV SCH ×2 (06:10→18:27)
[2018-02-22] MEDS: SODIUM CHLORIDE 0.9% INJ 10 ML SYR IV SCH (06:10)
[2018-02-22] MEDS: SLF 3 ML SYR IV SCH ×3 (06:10→22:00)
[2018-02-22] MEDS ORDERED: CALCIUM CHLORIDE 10% 1 GM in D5W 100 ML IV ONE ×2 (08:00→09:00)
--- NOTE | 2018-02-22 08:28 | REP ---
Portable chest x-ray: February 22, 2018 06:46 a.m. History: Respiratory failure. Comparison study is from 06:43 a.m. on two March 11, 2018. Findings: Endotracheal tube remains in good position. NG tube enters left upper quadrant. A right subclavian central venous line terminates in the expected location of the superior vena cava. EKG electrodes are seen. Low level of inspired lung volume bilaterally again seen. Hazy opacity in the bases, left more so than right consistent with pleural effusions. There is discoid atelectasis in the right base above an elevated right hemidiaphragm. Electronically Signed by Catracho Santana MD 02/22/2018 08:19 A
[2018-02-22] MEDS: NYSTATIN 100,000 UNITS/GM TOPICAL PWD 15 GM TOP SCH ×2 (09:57→21:57)
[2018-02-22] MEDS: PANTOPRAZOLE 40MG INJ (PROTONIX) (C9113) IV SCH (09:57)
[2018-02-22] MEDS: CEFTAROLINE FOSAMIL 400 MG in D5W MINI-BAG PLUS 50 ML IV SCH ×2 (09:58→21:55)
[2018-02-22] MEDS: CHLORHEXIDINE GLUCONATE 0.12 % 15ML UDC (PERIDEX ORAL RINSE) MT SCH (09:59)
--- NOTE | 2018-02-22 10:19 | CCN ---
DATE OF VISIT: 02/22/2018 START TIME: 0905 hours STOP TIME: 0939 hours I again attended Rocio Eng in the intensive care unit. He is intubated and mechanically ventilated. He has required minimal support. He remains off Levophed. He requires minimal sedation. Tolerating tube feeds. Maximum temperature (Tmax) overnight 98.9. Blood pressure 100-134. Pulse generally 50s to the 60s. Respiratory rate in the low teens without accessory muscle use. He has made minimal urine. Sodium 134, potassium of 5.3, chloride 95, CO2 29, BUN 71, creatinine 5.49. Glucose 149. Calcium low at 5.4. Phosphorus minimally elevated at 6.3. White blood cell count 6.1, hemoglobin 9.2, platelet count 66,000, 89% segs, no bands. Blood gas done on an SIMV of 8, tidal volume 500, PEEP of 5, pressure support of 15, 30% FiO2 shows pH 7.395, pCO2 42.6, pO2 of 81.4, saturation 94.9%. Chest x-ray shows lines and tubes in good position. Suboptimal respiratory effort but cannot rule out vascular congestion. On exam, he is awake, alert and appropriate, follows commands. Pupils react. Sclerae are clear. Trachea is in the midline. Jugular venous system difficult to assess. Chest does show some mild dependent crackles but no focal wheeze or rhonchus. Cardiac exam is distant, generally regular. Peripheral pulses are diminished. His edema is unchanged. Abdomen morbidly obese. There are active bowel sounds. Extremities show dressings in place on the left lower extremity. Chronic venous stasis changes on the right. Neurologically, he is awake, alert and appropriate, and follows commands. Most pressing problems requiring my presence at the bedside: 1. Respiratory failure requiring mechanical ventilatory support. 2. Coronary artery disease status post max cart times five with mild elevated troponins. 3. Renal failure, suspect acute tubal necrosis (ATN). 4. Sepsis with shock, cleared. 5. Chronic wound infection left lower extremity, polymicrobial. At this point, I feel we are in a window for a trial of extubation. I had a long discussion with the patient and he is agreeable to noninvasive support and even re-intubation if it is felt to be something that would allow him to get out of the hospital. Decision will be made today further regarding further intervention from a nephrology standpoint, and I appreciate their input. He was tolerating tube feeds but we will put these on hold and empty his stomach in hopes of extubating him in the next little bit. Overall however, he remains critically ill. I left the bedside at 0939 hours. 34 minutes of critical care time delivered at the bedside, not including procedures.
[2018-02-22] MEDS ORDERED: HEPARIN 1,000 UNITS/ML 10ML VIAL (FOR RADIOLOGY& DIALYSIS ONLY) XX ONE (11:15)
[2018-02-22 11:51] LABS: ABG BASE EXCESS 1.9 (-2.0-2.0); ABG HCO3 27.1 MEQ/L (22.0-26.0); ABG O2 SATURATION 99.1 % (95.0-99.0); ABG PARTIAL PRESSURE CO2 45.1 mmHg (35.0-45.0); ABG PARTIAL PRESSURE O2 189.9 mmHg (75.0-100.0); ABG STANDARD HCO3 26.2 MEQ/L (22.0-26.0); ABG TOTAL CO2 28.5 MEQ/L (23.0-31.0); ABG pH (ARTERIAL) 7.397 UNITS (7.350-7.450)
--- NOTE | 2018-02-22 12:18 | REP ---
ORAL CHEST X-RAY: Single view. 11:52 a.m. film. HISTORY: Line placement. COMPARISON STUDY: February 22, 2018. 6:46 a.m. FINDINGS: A new dual lumen right subclavian central venous catheter is placed with its tip in the expected location of the superior vena cava. There is no evidence of pneumothorax. There is a hazy opacity at both bases and some bilateral pleural effusion may be present. There are air bronchograms in the left base and discoid atelectasis is seen in the right base. The endotracheal and nasogastric tubes have been removed. IMPRESSION: Right subclavian catheter tip in the expected location of the superior vena cava. No evidence of pneumothorax. Suspect bilateral effusions. Right base discoid atelectasis. Air bronchograms left base again seen. Electronically Signed by Catracho Santana MD 02/22/2018 05:04 P
--- NOTE | 2018-02-22 19:04 | IPN ---
DATE: 02/22/2018 Mr. Eng is seen this morning in intensive care unit on his bedside. He was intubated up until my visit and then was just now extubated. He remains oliguric despite positive fluid balance of over 16 liters and large dose of intravenous (IV) Lasix given yesterday. He is now off pressors for about 12 hours and maintaining his blood pressure in the 140s to 150s. He has no fever or chills. PHYSICAL EXAMINATION: Temperature 97 degrees Fahrenheit, heart rate 62 per minute, respiratory rate 15 per minute, blood pressure 155/93 mm of mercury, and oxygen saturation 100% on the ventilator earlier and now on the aerosol mask. He is receiving 40% oxygen just after extubation. His neck veins are difficult to be assessed. He has a triple-lumen catheter and right subclavian vein. Head is atraumatic, and neck is supple. Heart sounds are regular and without a pericardial friction rub. Lungs have diminished breath sounds at dependent parts, but otherwise good air entry. Abdomen is obese and nontender. Bowel sounds are present. Extremities have no cyanosis or clubbing. Left lower leg is wrapped in dressing. He has edema on both lower extremities. Neurologically, he is awake and responds appropriately. Today's labs show WBC count 6.1, hemoglobin 9.2, hematocrit 27.6, platelets are 66,000. Blood gas this morning showed a pH of 7.39, pCO2 of 42.6, pO2 of 81.4, and bicarbonate 24.9. Sodium 134, potassium 5.3, CO2 of 29, BUN 71, creatinine 5.49, glucose 149, calcium 5.4, phosphorus 76.3. His AST is down to 2279, ALT 2619, and alkaline phosphatase 89. CPK is now 220. PROBLEMS: 1. Oliguric renal failure superimposed on chronic kidney disease. The patient has minimal urine output, and we will plan to do dialysis today on his bedside. I discussed with him yesterday, and he verbally consented. We talked to him again today, and he is consenting for dialysis. He will be dialyzed this afternoon on his bedside. 2. Respiratory failure. The patient is quite hypervolemic with 16 liters positive fluid balance. He has already been extubated this morning, and we will try to remove at least 2-3 liters fluid as tolerated. He was on pressors up until last evening, due to which we will not be too aggressive for fluid removal and will remove more fluid tomorrow. 3. Hypocalcemia. This is related to acute renal failure and hypoalbuminemia. The patient was already given one dose of calcium chloride 1 gram, and we will dialyze him with high calcium bath. 4. Hyperkalemia. This is m ild, and it will be corrected with dialysis. No other intervention is indicated at this time. 5. Abnormal liver enzymes, most likely related to shock liver, and they are improving nicely. 6. Anemia. His anemia is stable, and no emergent indication for a transfusion at this time.
--- NOTE | 2018-02-22 19:33 | RO ---
DATE OF PROCEDURE: 02/22/2018 PREPROCEDURE DIAGNOSIS: Acute renal failure and respiratory failure. POSTPROCEDURE DIAGNOSIS: Acute renal failure and respiratory failure. PROCEDURE: Right subclavian vein hemodialysis catheter placement. SURGEON: Dr. Ivett Lovell MACHINE GREASER: ANESTHESIA: 1% lidocaine for local anesthesia. INDICATIONS FOR PROCEDURE: Acute renal failure and respiratory failure. DESCRIPTION OF PROCEDURE: The patient had a right subclavian triple-lumen catheter in place, removed the dressing and cleaned the catheter site with usual sterile fashion. The patient's site was draped and prepped. Guidewire was placed in a sterile fashion in the triple-lumen catheter, which was then removed while holding digital pressure at the site. The skin and soft tissues dilated with skin dilator and then a 20-cm long double-lumen hemodialysis catheter placed over the guidewire without any difficulty. Good blood return from both ports. Catheter flushed and sutured in place. 1% lidocaine was used for suturing. The patient tolerated the procedure very well, and there were no immediate complications. A chest x-ray was ordered for catheter position checking. No complications and the patient tolerated the procedure well.
[2018-02-22] MEDS: MORPHINE 4 MG/ML 1ML VIAL/SYRINGE (J2270) IV PRN (23:54)
[2018-02-22] MEDS: SLF 3 ML SYR IV PRN (23:55)
[2018-02-23] VITALS (20 sets, daily range): BP systolic 100–177; BP diastolic 57–100
[2018-02-23] MEDS: methylPREDNISolone INJ 40 MG/1 ML VIAL (J2920) IV SCH ×2 (06:01→18:28)
[2018-02-23] MEDS: PIPERACILLIN/TAZOBACTAM SOD 2.25 GM in D5W MINI-BAG PLUS 50 ML IV SCH ×3 (06:01→23:30)
[2018-02-23] MEDS: SLF 3 ML SYR IV SCH ×3 (06:02→21:02)
[2018-02-23 06:04] LABS: ABG BASE EXCESS 2.3 (-2.0-2.0); ABG HCO3 28.3 MEQ/L (22.0-26.0); ABG PARTIAL PRESSURE CO2 50.5 mmHg (35.0-45.0); ABG PARTIAL PRESSURE O2 113.6 mmHg (75.0-100.0); ABG STANDARD HCO3 26.5 MEQ/L (22.0-26.0); ABG TOTAL CO2 29.8 MEQ/L (23.0-31.0); ABG pH (ARTERIAL) 7.366 UNITS (7.350-7.450)
[2018-02-23] MEDS: MORPHINE 4 MG/ML 1ML VIAL/SYRINGE (J2270) IV PRN (06:12)
[2018-02-23 07:33] LABS: BASO % 0.1 % (0.0-1.0); HEMATOCRIT 31.5 % (42.0-52.0); HEMOGLOBIN 10.3 g/dl (13.5-17.5); LYMPH # 0.5 10^3/uL (1.5-4.5); LYMPH % 6.1 % (24.0-44.0); MEAN CORPUSCULAR HGB CONC 32.7 g/dl (32.0-36.5); MEAN CORPUSCULAR VOLUME 97.8 fl (80.0-96.0); MONO # 0.2 10^3/uL (0.0-0.8); MONO % 2.9 % (0.0-5.0); NEUTROPHILS # 7.2 10^3/uL (1.8-7.7); NEUTROPHILS % 90.3 % (36.0-66.0); RED BLOOD COUNT 3.22 10^6/uL (4.30-6.10)
[2018-02-23 07:43] LABS: PLATELET COUNT, AUTOMATED 68 10^3/uL (150-450)
[2018-02-23] MEDS: ONDANSETRON 4MG/2ML VIAL (J2405) IV PRN (07:58)
[2018-02-23 08:05] LABS: ALBUMIN 1.9 GM/DL (3.2-5.2); BILIRUBIN,TOTAL 1.8 MG/DL (0.2-1.0); C REACTIVE PROTEIN QUANTITATIV 5.41 MG/DL (0.00-0.30); CALCIUM LEVEL 6.3 MG/DL (8.8-10.2); CREATININE FOR GFR 4.49 MG/DL (0.70-1.30); GLOMERULAR FILTRATION RATE 14.3 (>49); MAGNESIUM LEVEL 1.8 MG/DL (1.8-2.4); PHOSPHORUS LEVEL 5.7 MG/DL (2.5-4.9); POTASSIUM SERUM 5.4 MEQ/L (3.5-5.1); TOTAL PROTEIN 5.7 GM/DL (6.4-8.2)
--- NOTE | 2018-02-23 08:10 | REP ---
Portable chest x-ray: Single view. History: Respiratory failure. Comparison study: February 22, 2018. Findings: A right subclavian catheter remains in place with its tip in the expected location of the superior vena cava. EKG electrodes are seen. A poor level of inspired lung volume is seen again. There is bibasilar discoid atelectasis and probable small bilateral pleural effusions. The heart appears enlarged. Electronically Signed by Catracho Santana MD 02/23/2018 08:02 A
[2018-02-23] MEDS: PANTOPRAZOLE 40MG INJ (PROTONIX) (C9113) IV SCH (09:45)
[2018-02-23] MEDS: NYSTATIN 100,000 UNITS/GM TOPICAL PWD 15 GM TOP SCH ×2 (09:45→21:02)
[2018-02-23 11:00] LABS: HEPATITIS B SURFACE ANTIBODY NEGATIVE (POSITIVE)
[2018-02-23 11:11] LABS: HEPATITIS B SURFACE ANTIGEN NEGATIVE (NEGATIVE)
[2018-02-23 11:40] LABS: HEPATITIS B CORE ANTIBODY IGM NEGATIVE (NEGATIVE); HEPATITIS C VIRUS ABY INDEX 0.1 INDEX (<0.8)
--- NOTE | 2018-02-23 12:22 | CCN ---
DATE: 02/23/2018 This is an addendum to a critical care note already dictated by Dr. Sparkle Lama. I performed critical care rounds on Mr. Rocio Eng. He is a 62-year-old male with recent cardiac arrest, PEA, intubation, now extubated over 24 hours and doing well. Oxygen saturations are 98% on 2 liters. He is currently undergoing dialysis and is mildly hyperkalemic this morning. At this point in time, as blood pressure is stable, there is no critical illness at this time. Therefore, we will transfer back to hospitalist service. Cardiology should continue to follow in case there is any need for transfer for coronary artery catheterization; however, it is unclear the exact cause of his cardiac arrest and non-ST elevation myocardial infarction.
--- NOTE | 2018-02-23 14:30 | CCN ---
DATE: 02/23/2017 SUBJECTIVE: Mr. Eng is a 62-year-old male who is evaluated at bedside this morning. He was extubated yesterday. He is currently laying in the supine position in a bariatric bed with nasal cannula in place. He is awake, alert, and somewhat conversant. He appears to be somewhat despondent. He denies chest pain, abdominal pain, fevers, night sweats, chills. He states that he feels somewhat hungry. OBJECTIVE: Vitals: Temperature 97.1, heart rate 64 at bedside, respiratory rate 14, blood pressure at bedside 153/104, pulse oximetry 98% on 2 liters by nasal cannula. General: This is a morbidly obese male laying in the supine position in the hospital bed. Appropriately dressed in hospital attire. Awake, alert and somewhat conversant. Does not appear to be in distress. HEENT: Atraumatic, normocephalic. Pupils equal and react to light. Extraocular muscles intact. Oral mucosa appears pink and moist. Nasal septum appears midline. Nares are patent. Dentition is in poor condition. Patient has significant facial hair present. Cardiovascular: Regular rate and rhythm. No murmurs, rubs, or clicks. Normal S1, S2. Respiratory: Clear to auscultation bilaterally. Adequate inspiratory and expiratory airway excursion. No focal consolidation appreciated. No wheeze, no crackles. Abdomen: Morbidly obese. Soft. Nontender. Nondistended. No organomegaly, although somewhat difficult to appreciate secondary to body habitus. Significant abdominal striae noted. Bowel sounds are hypoactive throughout. No guarding. No rebound. Extremities: Chronic stasis venous dermatitis noted on the right lower extremity. Left lower extremity is bandaged in Kerlix with a foam dressing noted on the dorsal aspect of the left foot. The patient has an irregularly shaped wound also on the anterior aspect of the left lower leg with a clean wound base with noted slough. No active signs of bleeding. Somewhat linear shaped wound also noted on the dorsal aspect of the left foot that does not have any active bleeding. Both wounds have clean wound bases. Neurological: No focal neurological deficits. Awake, alert and conversant. Psychiatric: Patient appears somewhat despondent and depressed. LABORATORY DATA: WBC 8, hemoglobin 10.3, hematocrit 31.5, platelets 68. Sodium 134, potassium 5.4, chloride 97, bicarbonate 29, BUN 53, creatinine 4.49, glucose 140, calcium 6.3, phosphorus 5.7, magnesium 1.8, total bilirubin 1.8, AST 939, ALT 1914, LDH 683, CRP 5.41, protein 5.7, albumin 1.9. ABG: pH 7.37, pCO2 51, pO2 114, bicarbonate 30. Serology: Positive hepatitis B core IgG antibody. Microbiology: Urine positive Citrobacter amalonaticus. Blood culture negative. Left lower wound culture is positive for Pseudomonas aeruginosa, Klebsiella oxytoca, Streptococcus Group C, Corynebacterium species, and staphylococcus aureus methicillin resistant. Pathology: Peripheral smear shows anemia with minimal macrocytosis and few circulating nucleated red blood cells, likely multifactorial. No abnormal immature leukocytes identified. Mild thrombocytopenia with essentially normal platelet morphology. IMAGING: Portable chest x-ray on 02/23/2018 revealed a right subclavian catheter in place with tip in the expected location in the superior vena cava. Poor inspired lung volumes. Bibasilar discoid atelectasis with possible small bilateral pleural effusion. The heart appears enlarged. ASSESSMENT AND PLAN: This is a 62-year-old male who was initially admitted for fall out of wheelchair who subsequently was found unresponsive and underwent several cardiac arrests with an elevated troponin and likely non ST elevated myocardial infarction. 1. Chronic hypercarbic respiratory failure requiring intubation. 2. Obesity hypoventilation syndrome. 3. Thrombocytopenia. 4. Chronically elevated right hemidiaphragm. The patient was successfully extubated yesterday. He is morbidly obese with body mass index (BMI) of 52.9. He states at bedside rounds that he does not wear CPAP, BiPAP or oxygen at home. He indicates to us that he has never received evaluation for sleep apnea. He appears to be someone who is chronic CO2 retainer as his pH on ABG has somewhat normalized with a continued elevation in his pCO2. As noted above, he does not wear oxygen at home and he is saturating appropriately on 2 liters by nasal cannula. Due to his renal failure, the patient is currently evaluated by nephrology and on hemodialysis. Will defer to nephrology for further management. The patient is not on any sedation and is alert, awake and conversant. The patient has been transitioned to a renal diet with low sodium. The patient does have a history of alcohol dependence and has been five days into his hospital admission. He has not required any anxiolytics. I started patient on a multivitamin and folic acid. Have restarted patient's fluoxetine 20 mg by mouth daily. The patient is on thromboembolic deterrent stockings (TEDS) and sequentials for deep vein thrombosis (DVT) prophylaxis secondary to his thrombocytopenia. I have also started physical therapy today. Since successful extubation yesterday on 02/22/2018, pulmonary/critical care services are no longer required. The patient care will be transitioned to the hospitalist, Dr. Isacc Trevino, who will assume full service in the morning on 02/24/2018. My faculty preceptor for this patient encounter was physically present during the encounter and was fully available. All aspects of the patient interview, examination, medical decision making process, and medical care plan development were reviewed and approved by the faculty preceptor. The faculty preceptor is aware and concurs with the plan as stated in the body of this note and will attest to such by her co-signature. I,Christopher Cantu, agree with the above after perfomring bedside rounds and conducting an independent exam. ANU
[2018-02-23] MEDS ORDERED: HEPARIN 1,000 UNITS/ML 10ML VIAL (FOR RADIOLOGY& DIALYSIS ONLY) XX ONE (14:45)
[2018-02-23] MEDS: FOLIC ACID 1 MG TAB PO SCH (16:36)
[2018-02-23] MEDS: FLUoxetine 20 MG CAP PO SCH (16:37)
[2018-02-23] MEDS: MULTIVITAMINS/MINERALS THERAP 1 TAB PO SCH (16:37)
[2018-02-23] MEDS: CEFTAROLINE FOSAMIL 200 MG in D5W 50 ML IV SCH (17:00)
--- NOTE | 2018-02-23 21:32 | IPN ---
DATE: 02/23/2018 Mr. Eng is seen this morning on his bedside. He is currently being dialyzed. He has oliguric acute renal failure superimposed on chronic kidney disease related to multiple cardiac arrests and hypotension. He also had septic shock with left leg infected wound and was on multiple pressors. He has been off pressors for a couple of days now. He was dialyzed yesterday afternoon which he tolerated well and we were able to remove 3 liters of fluid. He is currently on nasal cannula 2 liters and feels well. He is somewhat tired and lethargic but able to answer simple questions. His tube feeding has been stopped and nasogastric tube has been removed. PHYSICAL EXAMINATION Temperature 97 degrees Fahrenheit, heart rate 64 per minute and respiratory rate 14 per minute. Blood pressure 154/93 mmHg and oxygen saturation 97% on 2 liters oxygen. His head is atraumatic. Neck veins are difficult to be assessed. There is a right subclavian catheter for dialysis. His heart sounds are regular and lungs with diminished breath sounds at dependent parts. Abdomen: Obese and nontender. Bowel sounds are normal. Extremities have no cyanosis or clubbing. Left leg is wrapped in dressing. Today's labs show WBC count 8.0, hemoglobin 10.3 and hematocrit 31.5. Sodium 134, potassium 5.4, CO2 29, BUN 53 and creatinine 4.49. Calcium level 6.3 and total bilirubin is 1.8. AST is down to 939, ALT 1914 and albumin is 1.9. PROBLEMS: 1. Oliguric acute renal failure superimposed on chronic kidney disease. The patient has minimal urine output and is currently being dialyzed. We will plan to dialyze him again for 4 hours and remove about 4 liters of fluid. He is tolerating dialysis treatment well. 2. Respiratory failure and hypervolemia. The patient was in septic shock and received large amount of IV fluids due to which he was about 16 liters positive fluid balance. We removed 3 liters yesterday and are trying to remove another 4 liters today. We will reassess him tomorrow morning. 3. Hyperkalemia, mild hyperkalemia related to acute renal failure and is likely to improve with dialysis. We are going to use 3.0 mEq potassium bath for 2 hours and then 2.0 mEq last 2 hours of dialysis. 4. Septic shock. The patient has been off pressors for about 36 hours now and maintaining his blood pressure well. He remains on Zosyn and ceftaroline. I have talked to pharmacy about adjusting the dose. 5. Anemia. At present his anemia is stable and no intervention is indicated.
[2018-02-24] VITALS (15 sets, daily range): BP systolic 137–183; BP diastolic 74–102
[2018-02-24] MEDS: CEFTAROLINE FOSAMIL 200 MG in D5W 50 ML IV SCH ×2 (04:14→15:41)
[2018-02-24 05:03] LABS: EOS % 0.1 % (0.0-3.0); HEMATOCRIT 30.6 % (42.0-52.0); HEMOGLOBIN 10.1 g/dl (13.5-17.5); LYMPH # 0.5 10^3/uL (1.5-4.5); LYMPH % 5.6 % (24.0-44.0); MEAN CORPUSCULAR HEMOGLOBIN 31.6 pg (27.0-33.0); MEAN CORPUSCULAR VOLUME 95.6 fl (80.0-96.0); MONO # 0.3 10^3/uL (0.0-0.8); MONO % 3.2 % (0.0-5.0); NEUTROPHILS # 8.4 10^3/uL (1.8-7.7); NEUTROPHILS % 90.6 % (36.0-66.0); WHITE BLOOD COUNT 9.3 10^3/uL (4.0-10.0)
[2018-02-24 05:04] LABS: PLATELET COUNT, AUTOMATED 75 10^3/uL (150-450)
[2018-02-24 05:19] LABS: ALBUMIN 1.8 GM/DL (3.2-5.2); BILIRUBIN,TOTAL 2.4 MG/DL (0.2-1.0); C REACTIVE PROTEIN QUANTITATIV 3.89 MG/DL (0.00-0.30); CALCIUM LEVEL 6.5 MG/DL (8.8-10.2); CREATININE FOR GFR 3.87 MG/DL (0.70-1.30); MAGNESIUM LEVEL 1.8 MG/DL (1.8-2.4); POTASSIUM SERUM 4.8 MEQ/L (3.5-5.1); TOTAL PROTEIN 5.6 GM/DL (6.4-8.2)
[2018-02-24] MEDS: PIPERACILLIN/TAZOBACTAM SOD 2.25 GM in D5W MINI-BAG PLUS 50 ML IV SCH ×3 (06:26→22:30)
[2018-02-24] MEDS: SLF 3 ML SYR IV SCH ×3 (06:26→22:29)
[2018-02-24] MEDS: methylPREDNISolone INJ 40 MG/1 ML VIAL (J2920) IV SCH ×2 (06:26→18:34)
[2018-02-24] MEDS: CARVedilol 6.25 MG TAB PO SCH ×2 (08:42→20:14)
[2018-02-24] MEDS: FLUoxetine 20 MG CAP PO SCH (08:42)
[2018-02-24] MEDS: PANTOPRAZOLE 40MG INJ (PROTONIX) (C9113) IV SCH (08:42)
[2018-02-24] MEDS: FOLIC ACID 1 MG TAB PO SCH (08:42)
[2018-02-24] MEDS: MULTIVITAMINS/MINERALS THERAP 1 TAB PO SCH (08:42)
[2018-02-24] MEDS: NYSTATIN 100,000 UNITS/GM TOPICAL PWD 15 GM TOP SCH ×2 (08:55→20:15)
[2018-02-24] MEDS ORDERED: HEPARIN 1,000 UNITS/ML 10ML VIAL (FOR RADIOLOGY& DIALYSIS ONLY) IV ONE (13:15)
--- NOTE | 2018-02-24 13:39 | IPNPDOC ---
Text Note Date of Service The patient was seen on 02/24/18. NOTE Subjective: Patient is a 62 year old male with a PMHx of HTN, PAD, Venous stasis ulcers, Chronic L Leg ulceration (follows w/ Dr. Perera), Morbid obesity, Chronic back pain / Spinal cord injury (2001) / Wheelchair dependent, Depression who presented to the ER with L knee pain / L leg pain after he had fallen off of his wheelchair. Patient had an evaluation by Dr. Kwok (Orthopedic surgery) who recommended no intervention. Dr. Perera (Vascular surgery) was called on consultation. Patient was also found to have a urinary tract infection and was started on broad-spectrum antibiotics. On 02/19, patient experienced a cardiac arrest from hypoxemia and was found to be hypotensive. Patient was transferred to ICU after resuscitation. He was intubated and had a central line placed. Patient required pressor support and ventilatory support. Patient was treated for septic shock and possibly experienced a cardiac event given his elevation in troponin, high suspicion for NSTEMI. Throughout intensive care stay patient's pressors were tapered off and patient was ultimately extubated on 02/23/2018. He was transferred to the service of hospitalist team on 02/24/2018. Patient was seen and examined at the bedside. Currently patient is not expressing any chest pain, shortness of breath or palpitations. He denies nausea, vomiting, abdominal pain, constipation, diarrhea or discomfort with urination. Objective: Vitals (See below) General: Lying in bed, no acute distress, comfortable, Awake / Alert HEENT: NC, AT CVS: RRR, +S1S2 Lungs: Poor inspiratory effort, no evidence of wheezing, rales or rhonchi Abdomen: Soft, ND, NT, Morbidly obese Extremities: - Edema, - Calf tenderness Assessment and plan: s/p Ventilator dependent respiratory failure / Hypercapnic respiratory failure - Chronic hypercarbic respiratory / Obesity hypoventilation syndrome - Chronically elevated right hemidiaphragm - Currently on nasal cannula 2 L oxygen - c/w Solumedrol; will begin to reduce dose in 24-48 hours Elevated troponin - possibly 2/2 NSTEMI, possibly 2/2 demand ischemia 2/2 septic shock - Currently not experiencing any chest pain, palpitations or SOB - Troponin have trended down - Will get EKG to evaluate new baseline - Will repeat troponin / c/w telemetry monitoring - Will consult cardiology s/p Septic shock - likely 2/2 Skin & soft tissue infection and Urinary tract infection - See below Left lower extremity acute wound infection on chronic non-healing ulcers - Initially presented to the hospital because of left leg pain - Physical with chronic wound changes - Leukocytosis resolved; Lactic acidosis improved - Blood cultures 02/18: No growth at 5 days - Wound culture 02/18: Polymicrobial (pseudomonas, Klebsiella, Streptococcus group C, Corynebacterium species, MRSA) - c/w Zosyn and Ceftaroline; s/p Vancomycin (Antibiotic day #6) Urinary tract infection - Urine culture 02/18: Citrobacter Amalonaticus #2 - c/w above antibiotics Normocytic anemia - Hg appears stable without any transfusions - Will continue to monitor Thrombocytopenia - No bleeding episodes noted - Will continue to monitor Oliguric acute renal failure on CKD3 - Now dialysis dependent - Nephrology on consultation; will continue with hemodialysis as needed Hypocalcemia - corrected calcium of 8.3 - c/w supplementation Elevated bilirubin - Will get US abdomen Transaminitis - likely 2/2 shocked liver 2/2 hypotension - AST / ALT have been improving GI prophylaxis - c/w Protonix DVT prophylaxis - c/w Heparin VS,Fishbone, I+O VS, Fishbone, I+O Laboratory Tests 02/24/18 04:11 Red Blood Count 3.20 L, Mean Corpuscular Volume 95.6, Mean Corpuscular Hemoglobin 31.6, Mean Corpuscular Hemoglobin Concent 33.0, Red Cell Distribution Width 13.1, Neutrophils (%) (Auto) 90.6 H, Lymphocytes (%) (Auto) 5.6 L, Monocytes (%) (Auto) 3.2, Eosinophils (%) (Auto) 0.1, Basophils (%) (Auto) 0.0, Neutrophils # (Auto) 8.4 H, Lymphocytes # (Auto) 0.5 L, Monocytes # (Auto) 0.3, Eosinophils # (Auto) 0.0, Basophils # (Auto) 0.0, Calcium Level 6.5 L, Aspartate Amino Transf (AST/SGOT) 462 H, Alanine Aminotransferase (ALT/SGPT) 1332 H, Alkaline Phosphatase 100, Total Bilirubin 2.4 H, Total Protein 5.6 L, Albumin 1.8 L Vital Signs Date Time Temp Pulse Resp B/P (MAP) Pulse Ox O2 Delivery O2 Flow Rate FiO2 02/24/18 12:00 2.0 02/24/18 12:00 64 18 145/83 (103) 98 Nasal Cannula 02/24/18 08:00 97.5 02/22/18 12:00 40 I&O- Last 24 Hours up to 6 AM 02/24/18 06:00 Intake Total 1010 ml Output Total 4043 ml Balance -3033 ml KEE GROSS MD Feb 24, 2018 13:39
[2018-02-24 13:51] LABS: MB/CK RELATIVE INDEX 2.55 (< OR =4); TROPONIN I 0.5 NG/ML (< 0.10)
[2018-02-25] VITALS (14 sets, daily range): BP systolic 137–182; BP diastolic 73–107
[2018-02-25] MEDS: CEFTAROLINE FOSAMIL 200 MG in D5W 50 ML IV SCH ×2 (04:02→15:49)
[2018-02-25 04:38] LABS: HEMATOCRIT 31.5 % (42.0-52.0); HEMOGLOBIN 10.5 g/dl (13.5-17.5); LYMPH # 0.5 10^3/uL (1.5-4.5); LYMPH % 6.1 % (24.0-44.0); MEAN CORPUSCULAR HEMOGLOBIN 32.2 pg (27.0-33.0); MEAN CORPUSCULAR HGB CONC 33.3 g/dl (32.0-36.5); MEAN CORPUSCULAR VOLUME 96.6 fl (80.0-96.0); MONO # 0.3 10^3/uL (0.0-0.8); MONO % 2.9 % (0.0-5.0); NEUTROPHILS # 7.8 10^3/uL (1.8-7.7); NEUTROPHILS % 90.5 % (36.0-66.0); RED BLOOD COUNT 3.26 10^6/uL (4.30-6.10); WHITE BLOOD COUNT 8.6 10^3/uL (4.0-10.0)
[2018-02-25 04:40] LABS: PLATELET COUNT, AUTOMATED 68 10^3/uL (150-450)
[2018-02-25 04:56] LABS: ALBUMIN 1.9 GM/DL (3.2-5.2); BILIRUBIN,TOTAL 2.8 MG/DL (0.2-1.0); C REACTIVE PROTEIN QUANTITATIV 2.68 MG/DL (0.00-0.30); CALCIUM LEVEL 6.7 MG/DL (8.8-10.2); CREATININE FOR GFR 3.8 MG/DL (0.70-1.30); GLOMERULAR FILTRATION RATE 17.3 (>49); POTASSIUM SERUM 4.8 MEQ/L (3.5-5.1); TOTAL PROTEIN 5.7 GM/DL (6.4-8.2)
[2018-02-25] MEDS: PIPERACILLIN/TAZOBACTAM SOD 2.25 GM in D5W MINI-BAG PLUS 50 ML IV SCH ×3 (06:10→23:08)
[2018-02-25] MEDS: SLF 3 ML SYR IV SCH ×3 (06:10→21:04)
[2018-02-25] MEDS: methylPREDNISolone INJ 40 MG/1 ML VIAL (J2920) IV SCH (06:10)
--- NOTE | 2018-02-25 07:50 | REP ---
LIMITED ABDOMEN ULTRASOUND: HISTORY: Elevated bilirubin. COMPARISON: 09/13/2010 Multiple calcifications are present in the gallbladder. The gallbladder wall measures 2.6 mm. The common bile duct measures 5.6 mm. There is fatty infiltration of the liver. The pancreas is not seen due to overlying bowel gas. The right kidney measures 6.1 cm in transverse x 7.5 cm in AP x 16.3 cm in cephalocaudal dimensions. There are multiple renal cysts. The largest measures 6.2 cm in width. IMPRESSION: 1. Cholelithiasis. 2. Fatty infiltration of the liver. 3. Multiple right renal cysts. Electronically Signed by Uday Granados MD 02/25/2018 08:43 A
[2018-02-25] MEDS: CARVedilol 6.25 MG TAB PO SCH ×2 (08:06→20:19)
[2018-02-25] MEDS: FLUoxetine 20 MG CAP PO SCH (08:07)
[2018-02-25] MEDS: NYSTATIN 100,000 UNITS/GM TOPICAL PWD 15 GM TOP SCH ×2 (08:07→20:20)
[2018-02-25] MEDS: PANTOPRAZOLE 40MG INJ (PROTONIX) (C9113) IV SCH (08:07)
[2018-02-25] MEDS: MULTIVITAMINS/MINERALS THERAP 1 TAB PO SCH (08:07)
[2018-02-25] MEDS: FOLIC ACID 1 MG TAB PO SCH (08:07)
--- NOTE | 2018-02-25 08:24 | REP ---
Chest one-view HISTORY: Intubation Comparison: 02/23/2018 Parenchymal density density is present in the lower lobes consistent with bibasilar atelectasis or infiltrates unchanged compared to the previous study. There is blunting of the right costophrenic angle due to pleural thickening or a small pleural effusion. The heart is normal in size. The pulmonary vasculature is normal in appearance. A central line is present. Impression: 1. Bibasilar atelectasis or infiltrate unchanged compared to the previous study. 2. Small right pleural effusion versus pleural thickening unchanged compared to the previous study. . Electronically Signed by Uday Granados MD 02/25/2018 08:16 A
--- NOTE | 2018-02-25 08:59 | IPN ---
DATE OF VISIT: 02/24/2018 Mr. Eng is seen this morning on his bedside. He is being dialyzed again today due to hypervolemia and acute renal failure. The patient has been almost anuric. He is hemodynamically stable and not requiring any pressors. PHYSICAL EXAMINATION Temperature 97.6 degrees Fahrenheit, heart rate 64 per minute and respiratory rate 18 per minute. Blood pressure 137/74 mmHg and oxygen saturation 97% on 2 liters oxygen. His head is atraumatic. Neck is supple and jugular venous distention (JVD) is difficult to be assessed. He is using oxygen via nasal cannula. Heart sounds are regular and lungs with diminished breath sounds at dependent parts. Abdomen obese and nontender. Bowel sounds are present. Extremities have no cyanosis or clubbing. Left leg is wrapped in dressing. Neurologically he is awake and able to answer simple questions. Today's labs show WBC count 9.3, hemoglobin 10.1 and hematocrit 30.6. Sodium 136, potassium 4.8, CO2 27, BUN 42 and creatinine 3.87. Glucose 127 and calcium 6.5. AST is down to 462, ALT 1332 and albumin 1.8. PROBLEMS: 1. Acute renal failure superimposed on chronic kidney disease. The patient remains anuric and he is being dialyzed again today. This is his third dialysis treatment. 2. Hyperkalemia. His potassium level has corrected and electrolytes will be checked again tomorrow. No other intervention is indicated. 3. Hypocalcemia. His calcium level is improving nicely and corrected calcium is now within normal range as his serum albumin is only 1.8. He is being dialyzed with high calcium bath. 4. Hypervolemia and respiratory insufficiency. The patient has been extubated successfully 3 days ago and remains stable. His volume status is still somewhat decompensated and we are trying to remove about 4 liters of fluid again today. With previous two dialysis treatments we removed 7 liters, which he tolerated well. 5. Anemia. At this point his anemia is stable and does not need any intervention. 6. Sepsis with infected wound on left leg. The patient remains on broad-spectrum antibiotics and currently afebrile.
--- NOTE | 2018-02-25 15:23 | IPNPDOC ---
Text Note Date of Service The patient was seen on 02/25/18. NOTE Subjective: Patient is a 62 year old male with a PMHx of HTN, PAD, Venous stasis ulcers, Chronic L Leg ulceration (follows w/ Dr. Perera), Morbid obesity, Chronic back pain / Spinal cord injury (2001) / Wheelchair dependent, Depression who presented to the ER with L knee pain / L leg pain after he had fallen off of his wheelchair. Patient had an evaluation by Dr. Kwok (Orthopedic surgery) who recommended no intervention. Dr. Perera (Vascular surgery) was called on consultation. Patient was also found to have a urinary tract infection and was started on broad-spectrum antibiotics. On 02/19, patient experienced a cardiac arrest from hypoxemia and was found to be hypotensive. Patient was transferred to ICU after resuscitation. He was intubated and had a central line placed. Patient required pressor support and ventilatory support. Patient was treated for septic shock and possibly experienced a cardiac event given his elevation in troponin, high suspicion for NSTEMI. Throughout intensive care stay patient's pressors were tapered off and patient was ultimately extubated on 02/23/2018. He was transferred to the service of hospitalist team on 02/24/2018. Patient was seen and examined at the bedside. Patient has no new complaints today. Denies any chest pain, SOB, palpitations, N/V, abdominal pain, C/D. Anderson catheter remains in place. Objective: Vitals (See below) General: Lying in bed, no acute distress, comfortable, Awake / Alert HEENT: NC, AT CVS: RRR, +S1S2 Lungs: Poor inspiratory effort, no appreciable wheezing / rhonchi / rales Abdomen: Soft, ND, NT, Morbidly obese Extremities: No evidence of LE edema, - Calf tenderness Assessment and plan: s/p Ventilator dependent respiratory failure / Hypercapnic respiratory failure - Chronic hypercarbic respiratory / Obesity hypoventilation syndrome - Chronically elevated right hemidiaphragm - Has been weaning off supplemental oxygen - Will start Prednisone; Will DC solumedrol Elevated troponin - possibly 2/2 NSTEMI, possibly 2/2 demand ischemia 2/2 septic shock - Currently not experiencing any chest pain, palpitations or SOB - Troponin have improving - c/w telemetry monitoring - c/w Carvedilol; avoid [place] given nephrotoxicity - Cardiology on consultation s/p Septic shock - likely 2/2 Skin & soft tissue infection and Urinary tract infection - See below Left lower extremity acute wound infection on chronic non-healing ulcers - Initially presented to the hospital because of left leg pain - Physical with chronic wound changes - Leukocytosis resolved; Lactic acidosis improved - Blood cultures 02/18: No growth at 5 days - Wound culture 02/18: Polymicrobial (pseudomonas, Klebsiella, Streptococcus group C, Corynebacterium species, MRSA) - c/w Zosyn and Ceftaroline; s/p Vancomycin (Antibiotic day #7) Urinary tract infection - Urine culture 02/18: Citrobacter Amalonaticus #2 - c/w above antibiotics Normocytic anemia - Hg appears stable - Will continue to monitor Thrombocytopenia - No bleeding episodes noted - Counts remain stable - Will continue to monitor Oliguric acute renal failure on CKD3 - Has received several rounds of HD - Possibly not dialysis dependent - Will continue to monitor renal function - Nephrology (Dr. Lovell) on consultation; will continue with HD as needed Hypocalcemia - corrected calcium of 8.3 - c/w supplementation Elevated bilirubin - US abdomen 02/25: Cholelithiasis. Fatty infiltration of the liver. Multiple right renal cysts. Transaminitis - likely 2/2 shocked liver 2/2 hypotension - AST / ALT have been improving GI prophylaxis - c/w Protonix DVT prophylaxis - c/w Heparin VS,Fishbone, I+O VS, Fishbone, I+O Laboratory Tests 02/25/18 04:17 Red Blood Count 3.26 L, Mean Corpuscular Volume 96.6 H, Mean Corpuscular Hemoglobin 32.2, Mean Corpuscular Hemoglobin Concent 33.3, Red Cell Distribution Width 13.3, Neutrophils (%) (Auto) 90.5 H, Lymphocytes (%) (Auto) 6.1 L, Monocytes (%) (Auto) 2.9, Eosinophils (%) (Auto) 0.0, Basophils (%) (Auto) 0.0, Neutrophils # (Auto) 7.8 H, Lymphocytes # (Auto) 0.5 L, Monocytes # (Auto) 0.3, Eosinophils # (Auto) 0.0, Basophils # (Auto) 0.0, Calcium Level 6.7 L, Aspartate Amino Transf (AST/SGOT) 257 H, Alanine Aminotransferase (ALT/SGPT) 992 H, Alkaline Phosphatase 97, Total Bilirubin 2.8 H, Total Protein 5.7 L, Albumin 1.9 L Vital Signs Date Time Temp Pulse Resp B/P (MAP) Pulse Ox O2 Delivery O2 Flow Rate FiO2 02/25/18 14:00 68 17 167/102 (123) 90 Room Air 02/25/18 12:00 97.5 02/25/18 09:00 1.0 02/22/18 12:00 40 I&O- Last 24 Hours up to 6 AM 02/25/18 05:59 Intake Total 640 ml Output Total 4010 ml Balance -3370 ml KEE GROSS MD Feb 25, 2018 15:23
--- NOTE | 2018-02-25 15:47 | ECGEPIP ---
Stationary ECG Study [facility] Test Date: 2018-02-24 Pat Name: BARBRA WILLIS Department: Room: [place] [address] Gender: M [employer]ent Tax [employer]: : 1955 Requested By: KEE GROSS Order Number: [id number] Reading MD: Brandon Kam Measurements Intervals Abie Rate: 65 P: 58 ND: 184 QRS: -66 QRSD: 117 T: -28 QT: 492 QTc: 515 Interpretive Statements SINUS RHYTHM MARKED LEFT AXIS DEVIATION/LAHB POSSIBLE ANTERIOR MYOCARDIAL INFARCTION, OF INDETERMINATE AGE. ANTERIOR AND INFERIOR ST-T ABNORMALITY NOTED COMPARED TO THE 3 TRACINGS IN THE SYSTEM, NO REMARKABLE CHANGES Electronically Signed On 02-25-2018 15:47:13 EST by Brandon Kam
[2018-02-25] MEDS ORDERED: FUROSEMIDE 100 MG/10 ML VIAL (J1940) IV ONE (16:00)
[2018-02-25] MEDS: SENOKOT S TAB PO PRN (21:23)
[2018-02-26] VITALS (15 sets, daily range): BP systolic 120–199; BP diastolic 72–110
[2018-02-26] MEDS: CEFTAROLINE FOSAMIL 200 MG in D5W 50 ML IV SCH ×2 (03:34→16:19)
[2018-02-26 04:29] LABS: HEMATOCRIT 29.8 % (42.0-52.0); HEMOGLOBIN 10.3 g/dl (13.5-17.5); MEAN CORPUSCULAR HEMOGLOBIN 32.6 pg (27.0-33.0); MEAN CORPUSCULAR HGB CONC 34.6 g/dl (32.0-36.5); MEAN CORPUSCULAR VOLUME 94.3 fl (80.0-96.0); RED BLOOD COUNT 3.16 10^6/uL (4.30-6.10); WHITE BLOOD COUNT 8.9 10^3/uL (4.0-10.0)
[2018-02-26 04:30] LABS: PLATELET COUNT, AUTOMATED 62 10^3/uL (150-450)
[2018-02-26 05:08] LABS: CALCIUM LEVEL 6.3 MG/DL (8.8-10.2); CREATININE FOR GFR 5.81 MG/DL (0.70-1.30); GLOMERULAR FILTRATION RATE 10.6 (>49); MAGNESIUM LEVEL 2.2 MG/DL (1.8-2.4); POTASSIUM SERUM 5.6 MEQ/L (3.5-5.1)
[2018-02-26] MEDS ORDERED: SOD POLYSTYRENE SULFONATE SUSP 15 GM/60 ML UD PO ONE (05:30)
[2018-02-26] MEDS: SLF 3 ML SYR IV SCH ×3 (06:00→22:26)
[2018-02-26] MEDS: PIPERACILLIN/TAZOBACTAM SOD 2.25 GM in D5W MINI-BAG PLUS 50 ML IV SCH ×3 (06:26→22:26)
--- NOTE | 2018-02-26 08:01 | IPN ---
DATE: 02/25/2018 Mr. Eng is seen this morning on his bedside. He is currently in the stretcher chair. He remains short of breath and weak. He is not eating much and reports that he does not have any appetite. There is no vomiting or diarrhea reported. He is using oxygen via nasal cannula and still oliguric. He was dialyzed yesterday and 3 liters of fluid was removed which he tolerated well. He has no fever or chills at present and antibiotics including ceftaroline and Zosyn. On physical exam, temperature 97.5 degrees Fahrenheit, heart rate 64 per minute and respiratory rate 18 per minute. Blood pressure 156/90 mmHg and oxygen saturation 92%. His head is atraumatic. Neck veins are not abnormally distended at present. There is no oral thrush or ulcers. Heart sounds are regular and lungs have good bilateral air entry. Abdomen: Obese and nontender and bowel sounds are normal. Extremities have no cyanosis or clubbing. Left lower leg is wrapped in a dressing. There is no edema on the right leg. Neurologically, he is awake and able to answer questions appropriately. Today's labs show WBC count 8.6, hemoglobin 10.5 and hematocrit 31.8. Platelets are 68,000. Sodium 136, potassium 4.8, CO2 26, BUN 44 and creatinine 3.8. Calcium level is 6.7, ALT 257, AST 992 and a C-reactive protein is down to 2.68. Albumin is 1.9. PROBLEMS: 1. Acute renal failure superimposed on chronic kidney disease. The patient is still oliguric and dialysis dependent. He was dialyzed yesterday. We are going to wait today and see how he does tomorrow. He will be given one dose of intravenous Lasix 100 mg and we will see if his urine output improves. He does have underlying chronic kidney disease and is likely to require dialysis at least few more times. His kidney function is being monitored on daily basis. 2. Hypertension related to acute renal failure and chronic essential hypertension with now some hypervolemia. He is not suitable for [place] inhibitor or angiotensin receptor blockers due to oliguric acute renal failure. We will continue with beta geri and give him a dose of diuretic today and see how he does. Calcium channel geri, vasodilators and beta blockers can be used. 3. Hyperkalemia. His potassium level has remained stable and no intervention is indicated at present. 4. Hypocalcemia. His calcium level has improved with dialysis and now his corrected calcium is within normal range. No specific intervention is indicated at present. 5. Anemia. At present he is stable and does not need a transfusion or any other urgent intervention. 6. Generalized weakness. The patient has morbid obesity and is quite weak at present. He will require rehab before he can be discharged. He might even require subacute rehab.
[2018-02-26] MEDS ORDERED: ASPIRIN 81 MG ENTERIC TAB PO SCH (09:00)
[2018-02-26] MEDS: FOLIC ACID 1 MG TAB PO SCH (09:10)
[2018-02-26] MEDS: predniSONE 20 MG TAB PO SCH (09:10)
[2018-02-26] MEDS: FLUoxetine 20 MG CAP PO SCH (09:10)
[2018-02-26] MEDS: NYSTATIN 100,000 UNITS/GM TOPICAL PWD 15 GM TOP SCH ×2 (09:10→22:26)
[2018-02-26] MEDS: PANTOPRAZOLE 40MG INJ (PROTONIX) (C9113) IV SCH (09:10)
[2018-02-26] MEDS: MULTIVITAMINS/MINERALS THERAP 1 TAB PO SCH (09:10)
[2018-02-26] MEDS: CARVedilol 6.25 MG TAB PO SCH ×2 (09:10→22:24)
[2018-02-26] MEDS: SENOKOT S TAB PO PRN (09:13)
--- NOTE | 2018-02-26 12:09 | IPN ---
DATE: 02/26/2018 Mr. Eng is seen this morning on his bedside. He is currently being dialyzed. He remains oliguric and mostly in the bed. Yesterday, he was out in the stretcher chair. The patient feels very weak and reports no appetite. Nursing staff reports that all day yesterday he ate only a couple of bites of his lunch and did drink some. He has not been eating, but no vomiting or diarrhea reported. He denies any abdominal pain. His urine output in the last 24 hours was only 58 mL. His head is atraumatic. Right subclavian dialysis graft is in place. Neck is supple. Jugular venous distention (JVD) is not significantly elevated. Heart sounds are regular and lungs with slightly diminished breath sounds at bases. Abdomen: Obese and nontender and bowel sounds are present. Extremities have no cyanosis or clubbing. Left leg is wrapped in a dressing. Neurologically, he is awake and at his baseline mentation. Today's labs show WBC count 8.9, hemoglobin 10.3 and hematocrit 29.8. Platelets are 62,000. Sodium 133, potassium 5, chloride 99, CO2 25, BUN 66 and creatinine 5.81. Calcium level is 6.3. Magnesium 2.2. PROBLEMS: 1. Acute renal failure superimposed on chronic kidney disease. The patient remains oliguric and is currently being dialyzed. We will complete 4 hour dialysis treatment today. 2. Hyperkalemia. His potassium level was 5.6 and repeat one has come back at 5.0. He is being dialyzed with 2.0 mEq potassium bath which is likely to correct his potassium. 3. Hypocalcemia. Calcium level is gradually improving and will likely improve further with hemodialysis today. His corrected calcium is almost normal so no other intervention is indicated. 4. Anemia. Anemia has been stable and does not need any urgent intervention at present. 5. Generalized weakness and deconditioning. The patient is not moving, however, nursing staff did get him out of bed in a stretcher chair yesterday. I will suggest to continue him getting out of bed. 6. Sepsis and left leg infection. He did have sepsis with infected leg wound. He remains on antibiotics. Currently he is on Zosyn and ceftaroline.
[2018-02-26] MEDS: EUCERIN 120GM CREAM TOP SCH ×2 (12:25→22:25)
--- NOTE | 2018-02-26 13:56 | IPNPDOC ---
Date Seen The patient was seen on 02/26/18. Progress Note Subjective: Patient is a 62 year old male with a PMHx of HTN, PAD, Venous stasis ulcers, Chronic L Leg ulceration (follows w/ Dr. Perera), Morbid obesity, Chronic back pain / Spinal cord injury (2001) / Wheelchair dependent, Depression who presented to the ER with L knee pain / L leg pain after he had fallen off of his wheelchair. Patient had an evaluation by Dr. Kwok (Orthopedic surgery) who recommended no intervention. Dr. Perera (Vascular surgery) was called on consultation. Patient was also found to have a urinary tract infection and was started on broad-spectrum antibiotics. On 02/19, patient experienced a cardiac arrest from hypoxemia and was found to be hypotensive. Patient was transferred to ICU after resuscitation. He was intubated and had a central line placed. Patient required pressor support and ventilatory support. Patient was treated for septic shock and possibly experienced a cardiac event given his elevation in troponin, high suspicion for NSTEMI. Throughout intensive care stay patient's pressors were tapered off and patient was ultimately extubated on 02/23/2018. He was transferred to the service of hospitalist team on 02/24/2018. Patient was seen and examined at the bedside. Patient has no new complaints today. Denies any chest pain, SOB, palpitations, N/V, abdominal pain, C/D. Anderson catheter remains in place. Remains despondent. Has no desire to eat. No dysphagia or odynophagia. Objective: Vitals (See below) General: Lying in bed, no acute distress, comfortable, Awake / Alert HEENT: NC, AT CVS: RRR, +S1S2 Lungs: Poor inspiratory effort, no appreciable wheezing / rhonchi / rales Abdomen: Soft, ND, NT, Morbidly obese, diminished bowel sounds throughout Extremities: No evidence of LE edema, - Calf tenderness, left lower extremity bandaged in OptiLock, Kerlix, and [place] bandage Assessment and plan: s/p Ventilator dependent respiratory failure / Hypercapnic respiratory failure - Chronic hypercarbic respiratory / Obesity hypoventilation syndrome - Chronically elevated right hemidiaphragm - Has been weaning off supplemental oxygen - c/w Prednisone; s/p solumedrol Elevated troponin - possibly 2/2 NSTEMI, possibly 2/2 demand ischemia 2/2 septic shock - Currently not experiencing any chest pain, palpitations or SOB - Troponin improving - c/w telemetry monitoring - c/w Carvedilol; Avoid NY given nephrotoxicity - Cardiology on consultation; appreciate their input s/p Septic shock - likely 2/2 Skin & soft tissue infection and Urinary tract infection - See below Left lower extremity acute wound infection on chronic non-healing ulcers - Initially presented to the hospital because of left leg pain - Physical with chronic wound changes - Leukocytosis resolved; Lactic acidosis improved - Blood cultures 02/18: No growth at 5 days - Wound culture 02/18: Polymicrobial (pseudomonas, Klebsiella, Streptococcus group C, Corynebacterium species, MRSA) - c/w Zosyn and Ceftaroline; s/p Vancomycin (Antibiotic day #8) Urinary tract infection - Urine culture 02/18: Citrobacter Amalonaticus #2 - c/w above antibiotics Normocytic anemia - Hg appears stable - Will continue to monitor Thrombocytopenia - No bleeding episodes noted - Counts remain stable - Will continue to monitor Oliguric acute renal failure on CKD3 - Has received several rounds of HD - Possibly not dialysis dependent - Will continue to monitor renal function - Nephrology (Dr. Lovell) on consultation; will continue with HD as needed Hypocalcemia - corrected calcium of 8.0 - No supplementation indicated - Continue with HD Elevated bilirubin - US abdomen 02/25: Cholelithiasis. Fatty infiltration of the liver. Multiple right renal cysts. Transaminitis - likely 2/2 shocked liver 2/2 hypotension - AST / ALT have been improving GI prophylaxis - c/w Protonix DVT prophylaxis - Thrombocytopenic - c/w TEDS/sequentials VS, I&O, [facility] Signs/I&O Vital Signs Date Time Temp Pulse Resp B/P (MAP) Pulse Ox O2 Delivery O2 Flow Rate FiO2 02/26/18 09:10 64 131/77 02/26/18 09:00 17 97 Nasal Cannula 1.0 02/26/18 08:00 97.4 02/22/18 12:00 40 I&O- Last 24 Hours up to 6 AM 02/26/18 06:00 Intake Total 570 ml Output Total 81 ml Balance 489 ml Laboratory Data 24H LABS Laboratory Tests 2 02/26/18 04:15: Nucleated Red Blood Cells % (auto) 0.2H, Anion Gap 9, Glomerular Filtration Rate 10.6L, Blood Urea Nitrogen 66H, Creatinine 5.81#H, Sodium Level 133L, Potassium Level 5.6H, Chloride Level 99, Carbon Dioxide Level 25, Calcium Level 6.3L, Magnesium Level 2.2 CBC/BMP Laboratory Tests 02/26/18 04:15 Red Blood Count 3.16 L, Mean Corpuscular Volume 94.3, Mean Corpuscular Hemoglobin 32.6, Mean Corpuscular Hemoglobin Concent 34.6, Red Cell Distribution Width 13.7, Calcium Level 6.3 L 02/26/18 06:43 Microbiology Microbiology 02/18/18 Blood Culture - Final, Complete NO GROWTH AFTER 5 DAYS 02/18/18 Blood Culture - Final, Complete NO GROWTH AFTER 5 DAYS 02/18/18 Urine Culture - Final, Complete Citrobacter Amalonaticus#2 02/18/18 Gram Stain - Final, Complete 02/18/18 Wound Culture - Final, Complete Pseudomonas Aeruginosa Klebsiella Oxytoca Streptococcus Group C Corynebacterium Species Staph.aureus Methicillin Resis GME ATTESTATION GME ATTESTATION My faculty preceptor for this patient encounter was physically present during the encounter and was fully available. All aspects of the patient interview, examination, medical decision making process, and medical care plan development were reviewed and approved by the faculty preceptor. The faculty preceptor is aware and concurs with the plan as stated in the body of this note and will attest to such by his/her cosignature. ATTENDING NOTE I, Isacc Trevino, have both independently examined this patient as well as re viewed the documentation. I have discussed in detail with the resident the findings and plan of treatment as documented in the residents documentation. I will continue to follow the patient and offer further guidance to the patients care as necessary during this hospital stay. CARMINE COCHRAN DO Feb 26, 2018 13:56 ISACC TREVINO MD Feb 26, 2018 17:44
[2018-02-26] MEDS ORDERED: HEPARIN 1,000 UNITS/ML 10ML VIAL (FOR RADIOLOGY& DIALYSIS ONLY) IV ONE (14:30)
[2018-02-26] MEDS ORDERED: HEPARIN 1,000 UNITS/ML 10ML VIAL (FOR RADIOLOGY& DIALYSIS ONLY) XX ONE (14:30)
--- NOTE | 2018-02-26 20:18 | IPN ---
DATE: 02/26/18 I am seeing Mr. Eng for the first time. He is in PCU bed, appears comfortable even though he is clearly depressed. He had dialysis earlier today and over 3 liters of fluid were eliminated. H denies any chest pain or significant dyspnea with his virtually zero physical activity. Vital signs: Blood pressure 140/90, it was as high as 199/107 before dialysis. He is in sinus rhythm, heart rate has been in 60s. He had one three beat run of ventricular tachycardia earlier today. He is afebrile. Saturation 96% on 1 liter of oxygen. Weight has been documented as 177 kg which is actually down since few days ago. He is alert and oriented, appropriate. There is a dialysis catheter through the right IJ. I do not appreciate any obvious JVP elevation. Heart exam reveals very muffled heart sound corresponding to his obesity. I do not appreciate any gallop, rub or murmur. Lungs are reasonably clear even though the effort is very poor and movement is fair at best. Abdomen is obese but soft. He has mild peripheral edema. His left lower extremity is bandaged from his toes to his knee. Neurologically I did not do any formal testing of his strengths but he moves both upper extremities without difficulty and he thought process appears to be even though depressed than otherwise appropriate. LABORATORY DATA: As of this morning potassium 5.6 then 5.0 later, creatinine 5.8, glucose 128, calcium 6.2. CBC hemoglobin 10.3, hematocrit 29 and platelet count 62,000. ASSESSMENT/PLAN: Mr. Egn is a 62-year-old man who came with septic shock that was complicated by cardiac arrest for which he was resuscitated, it eventually led to acute renal failure that is now treated with dialysis. He remains anuric. The EKG during his post event reveals precordial T-wave inversions and poor R-wave progression. Echocardiogram was of poor quality. It appears to have demonstrated grossly preserved left ventricular systolic function and no gross valvular abnormalities but the quality of the study was very poor. Under normal circumstances I would recommend to pursue coronary angiography, but due to his multiple comorbidities this is questionable. I talked to the patient about his wishes and he certainly thinks that he would like to pursue if it should bring life prolonging intervention. At this point I think it is premature to consider this, but with further medical management we will see how his situation will evolve. If he stabilizes and there will be some improvement, then we certainly can pursue that route tentatively next week. He is already on beta blockers. I do not think we want to give him NY inhibitors because there is still hope for recovery of renal function at least partially. He is not on aspirin but his platelet count is rather low and consequently I am going to hold on administering the medication for the time being. If we see some uptake in platelet count though I will start aspirin promptly. He also has been without any lipid lowering agents. He had evidence for probably shock liver. He has not had any liver test performed in 2 days but because his enzymes have been very rapidly improving I am going to start him on lipid lowering medications. His prognosis is certainly guarded on account of multiple medical issues. ANU
--- NOTE | 2018-02-26 20:34 | ECGEPIP ---
Stationary ECG Study [facility] Test Date: 2018-02-26 Pat Name: BARBRA WILLIS Department: Room: [place] [address] Gender: M Orthopedic Nurse Practitioner: : [id number] Requested By: GREG BANDA Order Number: [id number] Reading MD: Ravi Huddleston Measurements Intervals [place] Rate: 67 P: 47 MI: 191 QRS: -67 QRSD: 130 T: -32 QT: 500 QTc: 530 Interpretive Statements SINUS RHYTHM LEFT ANTERIOR FASCICULAR BLOCK Poor R wave progression POSSIBLE ANTERIOR MYOCARDIAL INFARCTION, OF INDETERMINATE AGE MODERATE T-WAVE ABNORMALITY, CONSIDER LATERAL ISCHEMIA Electronically Signed On 02-26-2018 20:34:00 EST by Ravi Huddleston
[2018-02-26] MEDS: ATORVASTATIN 20 MG TAB PO SCH (22:24)
[2018-02-27] VITALS (7 sets, daily range): BP systolic 130–179; BP diastolic 60–86
[2018-02-27] MEDS: CEFTAROLINE FOSAMIL 200 MG in D5W 50 ML IV SCH ×2 (04:01→17:22)
[2018-02-27 05:48] LABS: EOS % 0.2 % (0.0-3.0); HEMATOCRIT 30.3 % (42.0-52.0); HEMOGLOBIN 10.5 g/dl (13.5-17.5); LYMPH # 0.4 10^3/uL (1.5-4.5); LYMPH % 5.1 % (24.0-44.0); MEAN CORPUSCULAR HEMOGLOBIN 32.3 pg (27.0-33.0); MEAN CORPUSCULAR HGB CONC 34.7 g/dl (32.0-36.5); MEAN CORPUSCULAR VOLUME 93.2 fl (80.0-96.0); MONO # 0.5 10^3/uL (0.0-0.8); MONO % 5.8 % (0.0-5.0); NEUTROPHILS # 7.4 10^3/uL (1.8-7.7); NEUTROPHILS % 87.8 % (36.0-66.0); RED BLOOD COUNT 3.25 10^6/uL (4.30-6.10); WHITE BLOOD COUNT 8.4 10^3/uL (4.0-10.0)
[2018-02-27 05:56] LABS: PLATELET COUNT, AUTOMATED 69 10^3/uL (150-450)
[2018-02-27] MEDS: SLF 3 ML SYR IV SCH ×3 (06:00→20:34)
[2018-02-27 06:05] LABS: ALBUMIN 1.8 GM/DL (3.2-5.2); BILIRUBIN,TOTAL 2.4 MG/DL (0.2-1.0); CALCIUM LEVEL 6.3 MG/DL (8.8-10.2); CREATININE FOR GFR 4.38 MG/DL (0.70-1.30); GLOMERULAR FILTRATION RATE 14.7 (>49); MAGNESIUM LEVEL 1.9 MG/DL (1.8-2.4); POTASSIUM SERUM 4.5 MEQ/L (3.5-5.1); TOTAL PROTEIN 5.6 GM/DL (6.4-8.2)
[2018-02-27] MEDS: PANTOPRAZOLE 40MG INJ (PROTONIX) (C9113) IV SCH (08:11)
[2018-02-27] MEDS: predniSONE 20 MG TAB PO SCH (08:12)
[2018-02-27] MEDS: FOLIC ACID 1 MG TAB PO SCH (08:12)
[2018-02-27] MEDS: PIPERACILLIN/TAZOBACTAM SOD 2.25 GM in D5W MINI-BAG PLUS 50 ML IV SCH ×3 (08:12→22:51)
[2018-02-27] MEDS: FLUoxetine 20 MG CAP PO SCH (08:12)
[2018-02-27] MEDS: MULTIVITAMINS/MINERALS THERAP 1 TAB PO SCH (08:12)
[2018-02-27] MEDS: CARVedilol 6.25 MG TAB PO SCH ×2 (08:13→20:33)
[2018-02-27] MEDS: EUCERIN 120GM CREAM TOP SCH ×2 (08:14→20:33)
[2018-02-27] MEDS: NYSTATIN 100,000 UNITS/GM TOPICAL PWD 15 GM TOP SCH ×2 (08:14→20:33)
--- NOTE | 2018-02-27 08:38 | IPN ---
DATE: 02/27/2018 Mr. Eng's condition did not change much since yesterday evening. He has no specific complaints this morning. He still feels depressed, but denies any dyspnea or chest discomfort. His vital signs this morning reveal blood pressure of 130/60, but he was quite hypertensive around midnight and was 180/90. Heart rate remains in 60s and occasionally 70s, sinus rhythm. He is afebrile. Saturation 96% on 1 liter of oxygen by nasal cannula. He made about 100 mL of urine overnight. Weight is documented at 168 kg. He is alert, oriented, appropriate. His jugular venous pulse (JVP) does not appear too high to me. He has a dialysis catheter down through the right internal jugular (IJ). Lungs are reasonably clear even though the respiratory effort is fair at best. Heart exam reveals a regular rhythm. I would do not appreciate any obvious gallop. Murmur is unchanged. Abdomen is soft, but obese. There is small amount of peripheral edema. The left lower extremity remains bandaged. Laboratories: Sodium 135, potassium 4.5, BUN 52, creatinine 4.4 and glucose 104. Magnesium was 1.7. Albumin is 1.8. CBC: Hemoglobin 10, hematocrit 30.3, platelet count 69,000. ASSESSMENT/PLAN: Mr. Eng is a 62-year-old man who presented with septic shock and had cardiac arrest. He was successfully resuscitated and currently is recovering. Still as a consequence, developed acute on chronic renal failure and at this point is undergoing dialysis. I had a discussion with him yesterday about need for further cardiac evaluation and he is open to the possibility of angiography and potential further interventions. At this point though I would wait until his renal function stabilizes. If he should remain dialysis dependent then I think it will be relatively easy to proceed. On the other hand if he comes off dialysis then the benefit of angiography versus the harm of committing him to likely chronic dialysis needs to be weighed. From a cardiac management point of view, he is not on aspirin as yet due to fairly severe thrombocytopenia. I do not see any appreciable trend and consequently I am going to wait with starting aspirin. He is on a beta-geri and his heart rate is well- controlled. His blood pressure varies quite a bit, currently it is well-controlled, but probably volume dependency is significant. I do not think he can get NY inhibitors which would commit him to chronic renal failure, but if needed we can give him hydralazine for systolic blood pressure over 160 or so. He had an echocardiogram that was of poor quality, but has probably grossly preserved LV systolic function. I started statin last night. MTDD
--- NOTE | 2018-02-27 15:22 | IPNPDOC ---
Date Seen The patient was seen on 02/27/18. Progress Note SUBJECTIVE: Patient is a 62-year-old male with fall for which he was evaluated by orthopedic surgery and determined that no intervention was required. Chronic left lower extremity wound and chronic indwelling Anderson catheter with both revealing microbial activity. Patient started on an tibiotics. Patient was found unresponsive talent development specialist of 02/19/2018. He underwent for cardiopulmonary resuscitative events with successful return of spontaneous circulation obtained after each event. Patient was intubated, mechanically ventilated, and placed on three pressors. Elevated troponin without ST elevation possibly secondary to demand ischemia. Poor renal perfusion with anuria requiring hemodialysis. Successfully extubated on 02/24/2018 and transferred to hospitalist service. Patient is evaluated at bedside this morning. He feels "okay." He is trying to eat more and is currently working with physical therapy during my evaluation. He reports some lower left abdominal pain, but is not nauseous and has not vomited. No fever, night sweats, or chills. OBJECTIVE PHYSICAL EXAMINATION: VITAL SIGNS: Please see below. GENERAL: Morbidly obese male, alert and conversant, somewhat despondent, appropriately dressed, somewhat uncomfortable with manipulation by physical therapist. HEENT: Atraumatic, normocephalic, PERRL, EOMI, oral mucosa appears pink and moist, nasal septum appears midline, nares are patent, dentition is poor. CARDIOVASCULAR: Regular rate and rhythm, normal S1 and S2, no audible murmur, rub, click, healing burn to anterior chest from resuscitative pads, no active bleeding or drainage. RESPIRATORY: Clear to auscultation bilaterally, adequate inspiratory and expiratory airway excursion, symmetric airway entry, no audible focal consolidations, no wheeze, rhonchi, crackles. ABDOMINAL: Morbid, soft, non-tender, non-distended, diminished bowel sounds, no guarding, no rebound, difficult to assess organomegaly due to body habitus. EXTREMITIES: Left lower extremity is bandaged in an [place] bandage, no strike- through noted, chronic venous status changes noted on right lower extremity, no clubbing, no cyanosis. NEUROLOGICAL: No focal neurological deficits. PSYCHOLOGICAL: Despondent, but alert and conversant. LABORATORY DATA, IMAGING STUDIES, MICROBIOLOGY: Please see below. Echocardiogram: Left ventricular diastolic dysfunction, dilated right heart chambers with hypokinesis of right ventricular free wall, moderate pulmonary hypertension. DVT prophylaxis ordered?: TEDs, sequentials, knee high compression. ASSESSMENT AND PLAN: This is a 62-year-old male with multiple co- morbidities and a complicated hospital course that required intubation, mechanical ventilation, and pressor support. Multifactorial etiology. PROBLEMS: 1. Acute hypercarbic hypoxic respiratory failure: Required intubation and mechanical ventilation. Successfully extubated. Currently requiring oxygen via nasal cannula and saturating at 98% on 1L. Could likely transition patient off of oxygen given adequate oxygenation. On Prednisone. Previously on IV SoluMedrol. Will taper steroids. 2. Elevated troponin with lactic acidosis: Likely secondary to demand ischemia from hypoperfusion that required extensive pressor support. Echocardiogram obt ained as resulted above. Cardiology consulted with recommendations for possible further cardiac intervention once patient is stabilized from a medical standpoint, if possible. Started Aspirin today. No nephrotoxic agents given acute tubular necrosis and currently requiring hemodialysis. Hydralazine has been initiated for systolic blood pressure > 160. Atorvastatin was started yesterday. Continue with beta-geri. 3. Shock liver: Likely secondary to demand ischemia and hypotension. Trans aminitis is significantly improving. Statin therapy has been initiated by cardiology. 4. Acute tubular necrosis: Hypoperfusion with significant hypotension that required three pressors for support. Currently on hemodialysis and managed by nephrology. Electrolyte derangements managed via hemodialysis. GFR prior to event was 49.1 (stage III). Patient may have renal recovery, but prognosis is certainly guarded. It may take weeks to determine eventual outcome regarding patient's renal function. Continue renal diet. 5. Weakness of critical illness: Physical and occupational therapy have been ordered. Patient required 5 person assist required today during evaluation. Patient and family services following and monitoring patient's prognosis to determine eventual long-term care. 6. Thrombocytopenia: Patient was previously on Heparin for DVT prophylaxis, but developed a precipitous drop in platelet count. Heparin was discontinued. TEDS, sequentials, and knee high compression has been ordered for DVT prophylaxis. No Aspirin due to thrombocytopenia. 7. 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 Wound bases are clean and non-malodorous. Antibiotics initiated and currently on day #9 of therapy. Will complete 10-day course of Ceftaroline. Blood cultures negative. 8. Chronic indwelling Anderson catheter with abnormal urinalysis and positive urine culture: Likely result of chronic indwelling Anderson catheter. Complete 10-day antibiotic course. 9. Anemia: Peripheral smear obtained which revealed "Anemia with minimal macrocytosis and few circulating nucleated red blood cells, likely multifactorial. No abnormal immature leukocytes identified. Mild thrombocytopenia with essentially normal platelet morphology." Hypoproliferation as indicated by reticulocyte index. Hemoglobin currently stable. No signs of active bleeding. 10. Alcohol dependence: Patient has significant alcohol history. No withdrawal symptoms during hospital course. Have started Folic acid and Multivitamin. No need for Benzodiazepine at this time. 11. Depression: Continue with Fluoxetine. DISPOSITION: Prolonged hospital course. VS, I&O, 24H, Fishbone Vital Signs/I&O Vital Signs Date Time Temp Pulse Resp B/P (MAP) Pulse Ox O2 Delivery O2 Flow Rate FiO2 02/27/18 12:00 97.7 75 18 130/72 (91) 98 Nasal Cannula 1.0 02/22/18 12:00 40 I&O- Last 24 Hours up to 6 AM 02/27/18 06:00 Intake Total 750 ml Output Total 3100 ml Balance -2350 ml Laboratory Data 24H LABS Laboratory Tests 2 02/27/18 05:16: Immature Granulocyte % (Auto) 1.1, White Blood Count 8.4, Red Blood Count 3.25L, Hemoglobin 10.5L, Hematocrit 30.3L, Mean Corpuscular Volume 93.2, Mean Corpuscular Hemoglobin 32.3, Mean Corpuscular Hemoglobin Concent 34.7, Red Cell Distribution Width 14.0, Platelet Count 69L, Neutrophils (%) (Auto) 87.8H, Lymphocytes (%) (Auto) 5.1L, Monocytes (%) (Auto) 5.8H, Eosinophils (%) (Auto) 0.2, Basophils (%) (Auto) 0.0, Neutrophils # (Auto) 7.4, Lymphocytes # (Auto) 0.4L, Monocytes # (Auto) 0.5, Eosinophils # (Auto) 0.0, Basophils # (Auto) 0.0, Nucleated Red Blood Cells % (auto) 0.0, Immature Platelet Fraction 3.8, Anion Gap 11, Glomerular Filtration Rate 14.7L, Blood Urea Nitrogen 52H, Creatinine 4.38H, Sodium Level 135L, Potassium Level 4.5, Chloride Level 100, Carbon Dioxide Level 24, Calcium Level 6.3L, Aspartate Amino Transf (AST/SGOT) 104H, Alanine Aminotransferase (ALT/SGPT) 475H, Alkaline Phosphatase 91, Total Bilirubin 2.4H, Total Protein 5.6L, Albumin 1.8L, Magnesium Level 1.9, Albumin /Globulin Ratio 0.47L CBC/BMP Laboratory Tests 02/27/18 05:16 Red Blood Count 3.25 L, Mean Corpuscular Volume 93.2, Mean Corpuscular Hemoglobin 32.3, Mean Corpuscular Hemoglobin Concent 34.7, Red Cell Distribution Width 14.0, Neutrophils (%) (Auto) 87.8 H, Lymphocytes (%) (Auto) 5.1 L, Monocytes (%) (Auto) 5.8 H, Eosinophils (%) (Auto) 0.2, Basophils (%) (Auto) 0.0, Neutrophils # (Auto) 7.4, Lymphocytes # (Auto) 0.4 L, Monocytes # (Auto) 0.5, Eosinophils # (Auto) 0.0, Basophils # (Auto) 0.0, Calcium Level 6.3 L, Aspartate Amino Transf (AST/SGOT) 104 H, Alanine Aminotransferase (ALT/SGPT) 475 H, Alkaline Phosphatase 91, Total Bilirubin 2.4 H, Total Protein 5.6 L, Albumin 1.8 L Microbiology Microbiology 02/18/18 Blood Culture - Final, Complete NO GROWTH AFTER 5 DAYS 02/18/18 Blood Culture - Final, Complete NO GROWTH AFTER 5 DAYS 02/18/18 Urine Culture - Final, Complete Citrobacter Amalonaticus#2 02/18/18 Gram Stain - Final, Complete 02/18/18 Wound Culture - Final, Complete Pseudomonas Aeruginosa Klebsiella Oxytoca Streptococcus Group C Corynebacterium Species Staph.aureus Methicillin Resis CARMINE COCHRAN DO Feb 27, 2018 15:22
[2018-02-27] MEDS: ATORVASTATIN 20 MG TAB PO SCH (20:33)
[2018-02-28] VITALS (11 sets, daily range): BP systolic 114–182; BP diastolic 68–96
[2018-02-28] MEDS: CEFTAROLINE FOSAMIL 200 MG in D5W 50 ML IV SCH ×2 (03:33→16:19)
[2018-02-28] MEDS: SLF 3 ML SYR IV SCH ×3 (03:34→22:00)
[2018-02-28 05:56] LABS: EOS # 0.1 10^3/uL (0.0-0.50); EOS % 0.6 % (0.0-3.0); HEMATOCRIT 29.6 % (42.0-52.0); HEMOGLOBIN 9.9 g/dl (13.5-17.5); LYMPH # 0.4 10^3/uL (1.5-4.5); LYMPH % 4.1 % (24.0-44.0); MEAN CORPUSCULAR HGB CONC 33.4 g/dl (32.0-36.5); MEAN CORPUSCULAR VOLUME 95.8 fl (80.0-96.0); MONO # 0.6 10^3/uL (0.0-0.8); MONO % 6.6 % (0.0-5.0); NEUTROPHILS # 7.5 10^3/uL (1.8-7.7); NEUTROPHILS % 88.2 % (36.0-66.0); RED BLOOD COUNT 3.09 10^6/uL (4.30-6.10); WHITE BLOOD COUNT 8.5 10^3/uL (4.0-10.0)
[2018-02-28] MEDS: PIPERACILLIN/TAZOBACTAM SOD 2.25 GM in D5W MINI-BAG PLUS 50 ML IV SCH ×3 (06:07→22:46)
[2018-02-28 06:23] LABS: ALBUMIN 1.7 GM/DL (3.2-5.2); BILIRUBIN,TOTAL 2.1 MG/DL (0.2-1.0); CALCIUM LEVEL 5.8 MG/DL (8.8-10.2); CREATININE FOR GFR 5.69 MG/DL (0.70-1.30); GLOMERULAR FILTRATION RATE 10.9 (>49); MAGNESIUM LEVEL 2.1 MG/DL (1.8-2.4); POTASSIUM SERUM 4.5 MEQ/L (3.5-5.1); TOTAL PROTEIN 5.6 GM/DL (6.4-8.2)
[2018-02-28] MEDS ORDERED: CALCIUM GLUCONATE 1,000 MG in D5W MINI-BAG PLUS 100 ML IV ONE (06:30)
[2018-02-28 06:44] LABS: PLATELET COUNT, AUTOMATED 46 10^3/uL (150-450)
[2018-02-28] MEDS: PANTOPRAZOLE 40MG INJ (PROTONIX) (C9113) IV SCH (08:12)
[2018-02-28] MEDS: predniSONE 20 MG TAB PO SCH (08:13)
[2018-02-28] MEDS: NYSTATIN 100,000 UNITS/GM TOPICAL PWD 15 GM TOP SCH ×2 (08:13→21:14)
[2018-02-28] MEDS: EUCERIN 120GM CREAM TOP SCH ×2 (08:13→21:14)
[2018-02-28] MEDS: FLUoxetine 20 MG CAP PO SCH (08:14)
[2018-02-28] MEDS: CARVedilol 6.25 MG TAB PO SCH ×2 (08:14→21:15)
[2018-02-28] MEDS: FOLIC ACID 1 MG TAB PO SCH (08:14)
[2018-02-28] MEDS: MULTIVITAMINS/MINERALS THERAP 1 TAB PO SCH (08:14)
--- NOTE | 2018-02-28 12:24 | REP ---
PORTABLE RIGHT SHOULDER, ONE VIEW: HISTORY: Limited range of motion. There is no acute fracture or dislocation. The glenohumeral joint space is normal in appearance. There is mild narrowing of the acromioclavicular joint space. A right pleural effusion is present. IMPRESSION: There is no acute fracture or dislocation. Electronically Signed by Uday Granados MD 02/28/2018 12:37 P
--- NOTE | 2018-02-28 14:35 | IPNPDOC ---
Date Seen The patient was seen on 02/28/18. Progress Note SUBJECTIVE: Patient is a 62-year-old male with fall for which he was evaluated by orthopedic surgery and determined that no intervention was required. Chronic left lower extremity wound and chronic indwelling Anderson catheter with both revealing microbial activity. Patient started on an tibiotics. 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 He underwent for cardiopulmonary resuscitative events with successful return of spontaneous circulation obtained after each event. Patient was intubated, mechanically ventilated, and placed on three pressors. Elevated troponin without ST elevation possibly secondary to demand ischemia. Poor renal perfusion with anuria requiring hemodialysis. Successfully extubated on 02/24/2018 and transferred to hospitalist service. Patient is evaluated at bedside this morning. He states that he is doing "all right" today. Limited range of motion noted at the right shoulder per physical therapy. Requesting imaging. Patient has no difficulty swallowing, is not nauseous, vomiting, has abdominal pain. OBJECTIVE PHYSICAL EXAMINATION: VITAL SIGNS: Please see below. GENERAL: Morbidly obese male, alert and conversant, somewhat despondent, appropriately dressed, in no acute distress. HEENT: Atraumatic, normocephalic, PERRL, EOMI, oral mucosa appears pink and moist, nasal septum appears midline, nares are patent, dentition is poor. CARDIOVASCULAR: Regular rate and rhythm, normal S1 and S2, no audible murmur, rub, click, healing burn to anterior chest from resuscitative pads, no active bleeding or drainage. RESPIRATORY: Limited exam secondary to body habitus, clear to auscultation bilaterally, adequate inspiratory and expiratory airway excursion, symmetric airway entry, no audible focal consolidations, no wheeze, rhonchi, crackles. ABDOMINAL: Morbid, soft, non-tender, non-distended, diminished bowel sounds, no guarding, no rebound, difficult to assess organomegaly due to body habitus. EXTREMITIES: Left lower extremity is bandaged in an [place] bandage, no strike- through noted, chronic venous status changes noted on right lower extremity, no clubbing, no cyanosis. NEUROLOGICAL: No focal neurological deficits. PSYCHOLOGICAL: Despondent, but alert and conversant. LABORATORY DATA, IMAGING STUDIES, MICROBIOLOGY: Please see below. Right complete shoulder x-ray on 02/28/2018 - no acute fracture or dislocation. Echocardiogram: Left ventricular diastolic dysfunction, dilated right heart chambers with hypokinesis of right ventricular free wall, moderate pulmonary hypertension. DVT prophylaxis ordered?: TEDs, sequentials, knee high compression. ASSESSMENT AND PLAN: This is a 62-year-old male with multiple co- morbidities and a complicated hospital course that required intubation, mechanical ventilation, and pressor support. Multifactorial etiology. PROBLEMS: 1. Acute hypercarbic hypoxic respiratory failure: Required intubation and mechanical ventilation. Successfully extubated. Currently requiring oxygen via nasal cannula with adequate saturations. Could likely transition patient off of oxygen given adequate oxygenation. On Prednisone. Previously on IV SoluMedrol. Will taper steroids. 2. Elevated troponin with lactic acidosis: Likely secondary to demand ischemia from hypoperfusion that required extensive pressor support. Echocardiogram obtained as resulted above. Cardiology consulted with recommendations for possible further cardiac intervention once patient is stabilized from a medical standpoint, if possible. Started Aspirin today. No nephrotoxic agents given ac wrangell tubular necrosis and currently requiring hemodialysis. Hydralazine has been initiated for systolic blood pressure > 160. Atorvastatin was started yesterday. Continue with beta-geri. 3. Shock liver: Likely secondary to demand ischemia and hypotension. Transaminitis is significantly improving. Continue statin therapy. 4. Acute tubular necrosis: Hypoperfusion with significant hypotension that required three pressors for support. Currently on hemodialysis and managed by nephrology. Electrolyte derangements managed via hemodialysis. GFR prior to event was 49.1 (stage III). Patient may have renal recovery, but prognosis is certainly guarded. It may take weeks to determine eventual outcome regarding patient's renal function. Continue renal diet. 5. Weakness of critical illness: Physical and occupational therapy have been ordered. Patient required 5 person assist during therapy session yesterday. Discussion had with patient regarding participation and motivation. Obtain a right shoulder x-ray and physical therapy request. Negative for acute fracture or dislocation. Patient and family services following and monitoring patient's prognosis to determine eventual long-term care. 6. Possible acute occult fracture of left knee: Orthopedics initially consulted. Recommended vascular surgery consultation. No surgical intervention secondary to patient's significant comorbidities. Nonweightbearing of left lower extremity. 7. Thrombocytopenia: Patient was previously on Heparin for DVT prophylaxis, but developed a precipitous drop in platelet count. Heparin was discontinued. TEDS, sequentials, and knee high compression has been ordered for DVT prophylaxis. No Aspirin due to thrombocytopenia. 8. 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 Wound bases are clean and non-malodorous. Antibiotics initiated and currently on day #10 of therapy. Will discontinue after today's treatments. Blood cultures negative. 9. Chronic indwelling Anderson catheter with abnormal urinalysis and positive urine culture: Likely result of chronic indwelling Anderson catheter. Complete 10-day antibiotic course. 10. Anemia: Peripheral smear obtained which revealed "Anemia with minimal macrocytosis and few circulating nucleated red blood cells, likely mu ltifactorial. No abnormal immature leukocytes identified. Mild thrombocytopenia with essentially normal platelet morphology." Hypoproliferation as indicated by reticulocyte index. Hemoglobin currently stable. No signs of active bleeding. 11. Alcohol dependence: Patient has significant alcohol history. No withdrawal symptoms during hospital course. Have started Folic acid and Multivitamin. No need for Benzodiazepine at this time. 12. Depression: Continue with Fluoxetine. DISPOSITION: Prolonged hospital course. VS, I&O, 24H, Fishbone Vital Signs/I&O Vital Signs Date Time Temp Pulse Resp B/P (MAP) Pulse Ox O2 Delivery O2 Flow Rate FiO2 02/28/18 12:00 96.8 68 20 153/96 (115) 97 Nasal Cannula 1.0 02/22/18 12:00 40 I&O- Last 24 Hours up to 6 AM 02/28/18 06:00 Intake Total 1420 ml Output Total 75 ml Balance 1345 ml Laboratory Data 24H LABS Laboratory Tests 2 02/28/18 05:16: Immature Granulocyte % (Auto) 0.5, White Blood Count 8.5, Red Blood Count 3.09L, Hemoglobin 9.9L, Hematocrit 29.6L, Mean Corpuscular Volume 95.8, Mean Corpuscular Hemoglobin 32.0, Mean Corpuscular Hemoglobin Concent 33.4, Red Cell Distribution Width 14.6H, Platelet Count 46#L, Neutrophils (%) (Auto) 88.2H, Lymphocytes (%) (Auto) 4.1L, Monocytes (%) (Auto) 6.6H, Eosinophils (%) (Auto) 0.6, Basophils (%) (Auto) 0.0, Neutrophils # (Auto) 7.5, Lymphocytes # (Auto) 0.4L, Monocytes # (Auto) 0.6, Eosinophils # (Auto) 0.1, Basophils # (Auto) 0.0, Nucleated Red Blood Cells % (auto) 0.0, Anion Gap 12, Glomerular Filtration Rate 10.9L, Blood Urea Nitrogen 73H, Creatinine 5.69H, Sodium Level 136, Potassium Level 4.5, Chloride Level 100, Carbon Dioxide Level 24, Calcium Level 5.8*L, Aspartate Amino Transf (AST/SGOT) 77H, Alanine Aminotransferase (ALT/SGPT) 364H, Alkaline Phosphatase 102, Total Bilirubin 2.1H, Total Protein 5.6L, Albumin 1.7L, Magnesium Level 2.1, Albumin/Globulin Ratio 0.44L CBC/BMP Laboratory Tests 02/28/18 05:16 Red Blood Count 3.09 L, Mean Corpuscular Volume 95.8, Mean Corpuscular Hemoglobin 32.0, Mean Corpuscular Hemoglobin Concent 33.4, Red Cell Distribution Width 14.6 H, Neutrophils (%) (Auto) 88.2 H, Lymphocytes (%) (Auto) 4.1 L, Monocytes (%) (Auto) 6.6 H, Eosinophils (%) (Auto) 0.6, Basophils (%) (Auto) 0.0, Neutrophils # (Auto) 7.5, Lymphocytes # (Auto) 0.4 L, Monocytes # (Auto) 0.6, Eosinophils # (Auto) 0.1, Basophils # (Auto) 0.0, Calcium Level 5.8 *L, Aspartate Amino Transf (AST/SGOT) 77 H, Alanine Aminotransferase (ALT/SGPT) 364 H, Alkaline Phosphatase 102, Total Bilirubin 2.1 H, Total Protein 5.6 L, Albumin 1.7 L Microbiology Microbiology 02/18/18 Blood Culture - Final, Complete NO GROWTH AFTER 5 DAYS 02/18/18 Blood Culture - Final, Complete NO GROWTH AFTER 5 DAYS 02/18/18 Urine Culture - Final, Complete Citrobacter Amalonaticus#2 02/18/18 Gram Stain - Final, Complete 02/18/18 Wound Culture - Final, Complete Pseudomonas Aeruginosa Klebsiella Oxytoca Streptococcus Group C Corynebacterium Species Staph.aureus Methicillin Resis CARMINE COCHRAN DO Feb 28, 2018 14:35
[2018-02-28] MEDS ORDERED: METOPROLOL 5 MG/5 ML VIAL As Ordered ONE (14:47)
[2018-02-28] MEDS ORDERED: METOPROLOL 5 MG/5 ML VIAL IV STA (14:49)
[2018-02-28] MEDS ORDERED: AMIODARONE HCL 150 MG in APPROPRIATE DILUENT 1 EA IV STA (14:53)
--- NOTE | 2018-02-28 21:02 | IPN ---
DATE: 02/27/2018 Mr. Eng is seen this morning on his bedside. He is in bedside chair this morning at the time of my visit. He is remains weak and reports no improvement in his appetite. He is requiring only 1 liter of oxygen now. He is being treated for sepsis due to infected wound on his left leg. He has been anuric and dialysis dependent so far. PHYSICAL EXAMINATION: Temperature 97.7 degrees Fahrenheit, heart rate 76 per minute, respiratory rate 18 per minute, blood pressure 130/72 mm of mercury, and oxygen saturation 98% on 1 liter oxygen. Head is atraumatic. Neck is supple, and jugular venous distention (JVD) does not seem to be elevated. There is no oral thrush or ulcers. Heart sounds are regular, and lungs sound clear to auscultation. Abdomen is obese and nontender. Bowel sounds are normal. Extremities have no cyanosis or clubbing. Left leg is wrapped in dressing. Neurologically, he is awake and at his baseline mentation. Today's labs show WBC count 8.4, hemoglobin 10.5, and hematocrit 30.3. Sodium 135, potassium 4.5, CO2 of 24, BUN 52, creatinine 4.38, glucose 103, and calcium 6.3. His albumin level is only 1.8. PROBLEMS: 1. Acute renal failure superimposed on chronic kidney disease. The patient remains oliguric, and he was dialyzed yesterday. We will watch him for today and recheck his renal function tomorrow. He is likely to require dialysis unless his urine output improves dramatically. We will plan on dialyzing him tomorrow depending upon his labs. 2. Sepsis with infected wound, left leg. The patient remains on ceftaroline and Zosyn. He is afebrile and hemodynamically stable. 3. Anemia. At present anemia is stable and does not need any urgent intervention. 4. Hypertension. Blood pressure seems to be reasonable. He has been on low-dose beta geri and now I see hydralazine has been added in low dose. 5. Generalized weakness and deconditioning. The patient is very weak following multiple episodes of cardiac arrest and septic shock. He is slowly and gradually improving. 6. Status post cardiac arrest. The patient is now DO NOT RESUSCITATE and seems to be doing well for now.
[2018-02-28] MEDS: ATORVASTATIN 20 MG TAB PO SCH (21:14)
--- NOTE | 2018-02-28 22:08 | IPN ---
DATE: 02/28/2018 Mr. Eng is seen during hemodialysis this morning on his bedside. Earlier we changed his right subclavian dialysis catheter because of nonfunctioning. The patient is tolerating dialysis treatment very well. He remains anuric and dialysis dependent. He is not eating much however, he is drinking Nepro. He denies any dyspnea or chest pain and remains on 1 liter oxygen. PHYSICAL EXAMINATION Temperature 97 degrees Fahrenheit, heart rate 77 per minute and respiratory rate 20 per minute. Blood pressure 158/92 mmHg and oxygen saturation 98% on 1 liter oxygen. Head is atraumatic. Neck is supple and without jugular venous distention (JVD) or thyroid enlargement. Ears, nose and throat are unremarkable. Heart: Sounds are regular and lungs with slightly diminished breath sounds at bases. Abdomen: Soft and nontender and bowel sounds are normal. Extremities have no cyanosis or clubbing. Neurologically he is awake, alert and oriented times three. Today's labs show WBC count 8.5, hemoglobin 9.9 and hematocrit 29.6. Sodium 136, potassium 4.5, CO2 24, BUN 73 and creatinine 5.69. Calcium level is down to 5.8 and albumin 1.7. PROBLEMS: 1. Acute renal failure superimposed on chronic kidney disease. The patient remains anuric and dialysis dependent. He is being dialyzed today and he is tolerating dialysis treatment very well. We are trying to remove about 3 liters fluid as tolerated. 2. Anemia. His anemia is now stable and there is no active bleeding. We will continue to watch it closely without any intervention. 3. Hypoxemia and volume overload. His volume status has improved significantly with fluid removal over last couple of weeks. Today we are removing only 3 liters of fluids and he is tolerating it well so far. 4. Hypocalcemia. Again, this is related to low albumin and corrected calcium is only slightly below normal range. This will be corrected with dialysis today and no other intervention will be needed. 5. Generalized weakness and deconditioning. The patient remains mostly bed-bound. Nursing staff reports that to get him out of bed is quite a task and required five to six people yesterday. We hope that with time his strength will improve and he will be able to get out of bed more easily. Physical therapy should continue working with him.
--- NOTE | 2018-02-28 22:26 | ECGEPIP ---
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
[2018-03-01] VITALS: BP 136/84
[2018-03-01] MEDS: SLF 3 ML SYR IV SCH ×3 (03:56→21:33)
[2018-03-01] MEDS: CEFTAROLINE FOSAMIL 200 MG in D5W 50 ML IV SCH (03:56)
[2018-03-01 04:00] VITALS: BP 138/86
[2018-03-01] MEDS: PIPERACILLIN/TAZOBACTAM SOD 2.25 GM in D5W MINI-BAG PLUS 50 ML IV SCH (06:15)
[2018-03-01 06:18] LABS: BASO % 0.1 % (0.0-1.0); EOS # 0.1 10^3/uL (0.0-0.50); EOS % 1.2 % (0.0-3.0); HEMATOCRIT 31.5 % (42.0-52.0); HEMOGLOBIN 10.5 g/dl (13.5-17.5); LYMPH # 0.5 10^3/uL (1.5-4.5); LYMPH % 4.5 % (24.0-44.0); MEAN CORPUSCULAR HEMOGLOBIN 32.1 pg (27.0-33.0); MEAN CORPUSCULAR HGB CONC 33.3 g/dl (32.0-36.5); MEAN CORPUSCULAR VOLUME 96.3 fl (80.0-96.0); MONO # 0.7 10^3/uL (0.0-0.8); MONO % 6.8 % (0.0-5.0); NEUTROPHILS # 9.4 10^3/uL (1.8-7.7); NEUTROPHILS % 87.1 % (36.0-66.0); RED BLOOD COUNT 3.27 10^6/uL (4.30-6.10); WHITE BLOOD COUNT 10.8 10^3/uL (4.0-10.0)
[2018-03-01 06:21] LABS: PLATELET COUNT, AUTOMATED 46 10^3/uL (150-450)
[2018-03-01 06:42] LABS: ALBUMIN 1.7 GM/DL (3.2-5.2); BILIRUBIN,TOTAL 1.8 MG/DL (0.2-1.0); CALCIUM LEVEL 6.7 MG/DL (8.8-10.2); CREATININE FOR GFR 4.15 MG/DL (0.70-1.30); GLOMERULAR FILTRATION RATE 15.7 (>49); MAGNESIUM LEVEL 2.1 MG/DL (1.8-2.4); POTASSIUM SERUM 4.1 MEQ/L (3.5-5.1); TOTAL PROTEIN 5.6 GM/DL (6.4-8.2)
--- NOTE | 2018-03-01 07:19 | RO ---
DATE OF PROCEDURE: 02/28/2018 PREPROCEDURE DIAGNOSIS: Acute renal failure, need for dialysis and nonfunctioning dialysis catheter. POSTPROCEDURE DIAGNOSIS: Acute renal failure, need for dialysis and nonfunctioning dialysis catheter in subclavian vein. PROCEDURE: Right subclavian dialysis catheter exchange over Guidewire. REASON FOR PROCEDURE: Acute renal failure, need for dialysis and nonfunctioning dialysis catheter. SURGEON: Ivett Lovell MD SMELTER LINER: None. ANESTHESIA: 1% lidocaine for local anesthesia. DESCRIPTION: Informed consent obtained from the patient for exchange of right subclavian catheter as it was poorly functioning during her last dialysis treatment. Dressing removed from the catheter site and site cleaned and prepped in usual sterile fashion. Sutures from old catheter removed and cap from the blue port also removed. Under sterile conditions Guidewire advanced into the subclavian vein and the old dialysis catheter was then removed. Similarly, under sterile conditions, a new double-lumen 8-inch long hemodialysis catheter placed over guidewire without any difficulty and good venous blood return obtained from both ports. Catheter sutured in place. The patient tolerated the procedure well.
[2018-03-01 08:00] VITALS: BP 152/96
--- NOTE | 2018-03-01 08:54 | IPN ---
DATE: 03/01/2018 Mr. Eng went into atrial fibrillation with rapid ventricular response yesterday afternoon during dialysis. He has no awareness of palpitations. Denies any chest pain or shortness of breath, but continues to feel generally unwell. He received initially 150 mg of amiodarone IV and 5 mg of metoprolol IV which led to some slowing on his heart rate, but he remained in atrial fibrillation since. Vital signs this morning reveal blood pressure 152/96, heart rate has been in 110s. He is afebrile. Saturation 95% on 1 liter of oxygen. Yesterday, he had dialysis and his balance was about a liter negative, but today he made only about 34 mL of urine and yesterday he had made about 160 mL of urine all day. He is alert, oriented and appropriate. I do not appreciate any distinct jugular venous pulse (JVP) elevations. Heart exam reveals irregular tachycardia. Lungs are reasonably clear to auscultation, even though with his body habitus it is difficult to estimate, but I do not hear any crackles or wheezing. Abdomen is obese, but soft. His extremities are mildly swollen. Neurologically, besides generalized weakness, he is intact. Laboratories: Sodium 134, potassium 4.1, BUN 45, creatinine 4.2 and glucose 109. CBC: Hemoglobin 10.5, hematocrit 31 and platelet count is only 46,000. ASSESSMENT/PLAN: Mr. Eng is a 62-year-old man who suffered cardiorespiratory arrest, probably due to underlying sepsis. He was resuscitated. His troponin peaked around 6 and now he is undergoing dialysis for acute on chronic renal failure. As a complicating factor, he developed atrial fibrillation yesterday. As far as the management is concerned, he is on a beta-geri and statin and he probably cannot be anticoagulated or given antiplatelet agents due to his very low platelet count. Fortunately, so far, there have not been any bleeding complications. I think it would be reasonable to attempt to reestablish sinus rhythm if only because of his relative contraindication to anticoagulation. I am going to advance the dose of carvedilol to 6.25 mg every 6 hours with holding parameters and will start him on amiodarone 400 mg twice a day. I am somewhat optimistic that he will convert to sinus rhythm, hopefully within day or two. If he does not, we may change the course. In the longer horizon, he definitely should have coronary angiography, but at this point I do not see him being a candidate for any reasonable interventions until his renal function stabilizes and his platelet count improves.
[2018-03-01] MEDS: FLUoxetine 20 MG CAP PO SCH (09:22)
[2018-03-01] MEDS: FOLIC ACID 1 MG TAB PO SCH (09:22)
[2018-03-01] MEDS: predniSONE 20 MG TAB PO SCH (09:22)
[2018-03-01] MEDS: AMIODARONE 200 MG TAB (PACERONE) PO SCH ×2 (09:22→20:20)
[2018-03-01] MEDS: MULTIVITAMINS/MINERALS THERAP 1 TAB PO SCH (09:22)
[2018-03-01] MEDS: NYSTATIN 100,000 UNITS/GM TOPICAL PWD 15 GM TOP SCH ×2 (09:23→20:20)
[2018-03-01] MEDS: EUCERIN 120GM CREAM TOP SCH ×2 (09:23→20:20)
[2018-03-01] MEDS: CARVedilol 6.25 MG TAB PO SCH ×4 (09:23→23:26)
[2018-03-01] MEDS: PANTOPRAZOLE 40MG INJ (PROTONIX) (C9113) IV SCH (09:23)
--- NOTE | 2018-03-01 11:46 | IPNPDOC ---
Date Seen The patient was seen on 03/01/18. Progress Note SUBJECTIVE: Patient is a 62-year-old male with fall for which he was evaluated by orthopedic surgery and determined that no intervention was required. Chronic left lower extremity wound and chronic indwelling Anderson catheter with both revealing microbial activity. Patient started on a ntibiotics. Patient was found unresponsive amalgamator of 02/19/2018. He underwent for cardiopulmonary resuscitative events with successful return of spontaneous circulation obtained after each event. Patient was intubated, mechanically ventilated, and placed on three pressors. Elevated troponin without ST elevation possibly secondary to demand ischemia. Poor renal perfusion with anuria requiring hemodialysis. Successfully extubated on 02/24/2018 and transferred to hospitalist service. Patient is evaluated at bedside this morning. Patient says that he feels nauseous, but is not vomiting or having abdominal pain. He states that he has no desire to eat and food is unappetizing to him. Denies chest pain or palpitations. OBJECTIVE PHYSICAL EXAMINATION: VITAL SIGNS: Please see below. GENERAL: Morbidly obese male, alert and conversant, somewhat despondent, appropriately dressed, in no acute distress. HEENT: Atraumatic, normocephalic, PERRL, EOMI, oral mucosa appears pink and moist, nasal septum appears midline, nares are patent, dentition is poor. CARDIOVASCULAR: Irregularly irregular heart rate and rhythm, variable S1 and S2, no audible murmur, rub, click, healing burn to anterior chest from resuscitative pads, no active bleeding or drainage. RESPIRATORY: Limited exam secondary to body habitus, clear to auscultation bilaterally, adequate inspiratory and expiratory airway excursion, symmetric airway entry, no audible focal consolidations, no wheeze, rhonchi, crackles. ABDOMINAL: Morbid, soft, non-tender, non-distended, bowel sounds appreciated throughout, no guarding, no rebound, difficult to assess organomegaly due to body habitus. EXTREMITIES: Left lower extremity is bandaged in an [place] bandage, no strike- through noted, chronic venous status changes noted on right lower extremity, no clubbing, no cyanosis, No peripheral edema. NEUROLOGICAL: No focal neurological deficits. PSYCHOLOGICAL: Despondent, but alert and conversant. LABORATORY DATA, IMAGING STUDIES, MICROBIOLOGY: Please see below. Right complete shoulder x-ray on 02/28/2018 - no acute fracture or dislocation. Echocardiogram: Left ventricular diastolic dysfunction, dilated right heart chambers with hypokinesis of right ventricular free wall, moderate pulmonary hypertension. DVT prophylaxis ordered?: TEDs, sequentials, knee high compression. ASSESSMENT AND PLAN: This is a 62-year-old male with multiple co- morbidities and a complicated hospital course that required intubation, mechanical ventilation, and pressor support. Multifactorial etiology. PROBLEMS: 1. New onset atrial fibrillation with rapid ventricular response: EKG confirms atrial fibrillation. Administered 1 dose of metoprolol 5 mg IV stat and one-time dose of amiodarone 150 mg IV stat. Both did control the rate somewhat, but remained tachycardic. Cardiology is consulted. Have recommended carvedilol 6.25 mg by mouth every 6 hours with hold parameters and amiodarone 400 mg twice daily. Hopeful for conversion back to sinus rhythm. Patient would most likely benefit from cardiac angiography, but given his continued hemodialysis requirements this will be postponed. 2. Acute renal failure superimposed on chronic kidney disease: Nephrology is consulted. Patient continues with hemodialysis secondary to an anuric renal failure secondary to acute tubular necrosis. Prior GFR was 49.1. Renal recovery is possible. Will continue to monitor closely. Renal diet. Nepro supplementation ordered. 3. Weakness of critical illness: Physical and occupational therapy have been ordered. Shoulder x-ray was negative. Patient may likely require extensive rehabilitation. Physical therapy and occupational therapy recommended continued rehabilitative services and a subacute setting of only. 4. Acute hypercarbic hypoxic respiratory failure: Required intubation and mechanical ventilation. Successfully extubated. Currently requiring oxygen via nasal cannula with adequate saturations. Weaning oxygen therapy. Continuing tapering dose of prednisone. Currently on 20 mg by mouth daily. 5. Elevated troponin with lactic acidosis: Likely secondary to demand ischemia from hypoperfusion that required extensive pressor support. Echocardiogram obtained as resulted above. Cardiology consulted with recommendations for possible further cardiac intervention once patient is stabilized from a medical standpoint, if possible. Discontinued aspirin secondary to worsening thrombocytopenia. No nephrotoxic agents given acute tubular necrosis and currently requiring hemodialysis. Hydralazine has been initiated for systolic blood pressure > 160. Atorvastatin was started yesterday. Continue with beta-geri. 6. Shock liver: Likely secondary to demand ischemia and hypotension. Transaminitis is significantly improving. Continue statin therapy. 7. Possible acute occult fracture of left knee: Orthopedics initially consulted. Recommended vascular surgery consultation. No surgical intervention secondary to patient's significant comorbidities. Nonweightbearing of left lower extremity. 8. Anemia: Peripheral smear obtained which revealed "Anemia with minimal macrocytosis and few circulating nucleated red blood cells, likely multifactorial. No abnormal immature leukocytes identified. Mild thrombocyt openia with essentially normal platelet morphology." Hypoproliferation as indicated by reticulocyte index. Hemoglobin currently stable. No signs of active bleeding. 9. Thrombocytopenia: Patient was previously on Heparin for DVT prophylaxis, but developed a precipitous drop in platelet count. Heparin was discontinued. TEDS, sequentials, and knee high compression has been ordered for DVT prop hylaxis. No Aspirin due to thrombocytopenia. Likely secondary to acute and complicated hospital course due to cardiac arrest. 10. 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 Wound bases are clean and non-malodorous. Completed a ten-day course of antibiotic therapy. Blood cultures negative. 11. Chronic indwelling Anderson catheter with abnormal urinalysis and positive ur ine culture: Likely result of chronic indwelling Anderson catheter. Completed 10- day antibiotic course. 12. Alcohol dependence: Patient has significant alcohol history. No withdrawal symptoms during hospital course. Have started Folic acid and Multivitamin. No need for Benzodiazepine at this time. 13. Depression: Continue with Fluoxetine. DISPOSITION: Prolonged hospital course. [facility] Vital Signs Date Time Temp Pulse Resp B/P (MAP) Pulse Ox O2 Delivery O2 Flow Rate FiO2 03/01/18 09:23 118 152/96 03/01/18 08:00 98.1 20 95 Nasal Cannula 1.0 I&O- Last 24 Hours up to 6 AM 03/01/18 06:00 Intake Total 1310 ml Output Total 2191 ml Balance -881 ml Laboratory Data 24H LABS Laboratory Tests 2 03/01/18 05:41: Immature Granulocyte % (Auto) 0.3, White Blood Count 10.8H, Red Blood Count 3.27L, Hemoglobin 10.5L, Hematocrit 31.5L, Mean Corpuscular Volume 96.3H, Mean Corpuscular Hemoglobin 32.1, Mean Corpuscular Hemoglobin Concent 33.3, Red Cell Distribution Width 14.9H, Platelet Count 46L, Neutrophils (%) (Auto) 87.1H, Lymphocytes (%) (Auto) 4.5L, Monocytes (%) (Auto) 6.8H, Eosinophils (%) (Auto) 1.2, Basophils (%) (Auto) 0.1, Neutrophils # (Auto) 9.4H, Lymphocytes # (Auto) 0.5L, Monocytes # (Auto) 0.7, Eosinophils # (Auto) 0.1, Basophils # (Auto) 0.0, Nucleated Red Blood Cells % (auto) 0.0, Immature Platelet Fraction 4.9, Anion Gap 9, Glomerular Filtration Rate 15.7L, Blood Urea Nitrogen 45H, Creatinine 4.15H, Sodium Level 134L, Potassium Level 4.1, Chloride Level 100, Carbon Dioxide Level 25, Calcium Level 6.7#L, Aspartate Amino Transf (AST/SGOT) 70H, Alanine Aminotransferase (ALT/SGPT) 290H, Alkaline Phosphatase 117, Total Bilirubin 1.8H, Total Protein 5.6L, Albumin 1.7L, Magnesium Level 2.1, Albumin/Globulin Ratio 0.44L CBC/BMP Laboratory Tests 03/01/18 05:41 Red Blood Count 3.27 L, Mean Corpuscular Volume 96.3 H, Mean Corpuscular Hemoglobin 32.1, Mean Corpuscular Hemoglobin Concent 33.3, Red Cell Distribution Width 14.9 H, Neutrophils (%) (Auto) 87.1 H, Lymphocytes (%) (Auto) 4.5 L, Monocytes (%) (Auto) 6.8 H, Eosinophils (%) (Auto) 1.2, Basophils (%) (Auto) 0.1, Neutrophils # (Auto) 9.4 H, Lymphocytes # (Auto) 0.5 L, Monocytes # (Auto) 0.7, Eosinophils # (Auto) 0.1, Basophils # (Auto) 0.0, Calcium Level 6.7 #L, Aspartate Amino Transf (AST/SGOT) 70 H, Alanine Aminotransferase (ALT/SGPT) 290 H, Alkaline Phosphatase 117, Total Bilirubin 1.8 H, Total Protein 5.6 L, Albumin 1.7 L CARMINE COCHRAN DO Mar 01, 2018 11:46
[2018-03-01 11:52] VITALS: BP 127/83
--- NOTE | 2018-03-01 14:59 | IPN ---
DATE OF VISIT: 03/01/2018 Mr. Eng is seen this morning on his bedside. He was dialyzed yesterday and during dialysis he developed atrial fibrillation. He is being treated with amiodarone and has been evaluated by cardiology. The patient is feeling about the same and denies any dyspnea, chest pain, nausea or vomiting. His oral intake has been poor and reports very diminished appetite. He had multiple episodes of cardiac arrest requiring resuscitation times five and has been in oliguric acute renal failure requiring dialysis. PHYSICAL EXAMINATION: Temperature 98.1 degrees Fahrenheit, heart rate 118 per minute and respiratory rate 20 per minute. Blood pressure 152/96 mmHg and oxygen saturation 95%. Head is atraumatic. Neck is supple and JVD is not visible. Neck veins are only minimally visible above the clavicle. There is no oral thrush or ulcers. He has a right subclavian hemodialysis catheter in place. Heart sounds are tachycardic and irregular. Lungs with diminished breath sounds at dependent parts. Abdomen obese, soft and nontender and bowel sounds are present. Extremities have no cyanosis or clubbing. Left lower leg is wrapped in dressing. Neurologically he is awake and able to answer questions. Today's labs show WBC count 10.8, hemoglobin 10.5 and hematocrit 31.5. Platelets are 46,000. Sodium 134, potassium 4.1, CO2 25, BUN 45 and creatinine 4.15. Calcium is 6.7. PROBLEMS: 1. Acute renal failure superimposed on chronic kidney disease. The patient has been oliguric and dialysis dependent. He was dialyzed yesterday and we will reevaluate him tomorrow for further dialysis. At present, he does not have any evidence of metabolic acidosis, hypervolemia or electrolyte abnormalities requiring dialysis today. 2. Atrial fibrillation. The patient has new-onset atrial fibrillation with ventricular rate just above 100. He is not a suitable candidate for anticoagulation due to high risk of bleeding. He also has very significant thrombocytopenia. 3. Thrombocytopenia. We will not give him heparin during dialysis anymore due to worsening thrombocytopenia. I would suggest to check him for heparin-induced antibodies. 4. Anemia. His anemia has been stable and no urgent intervention is indicated. 5. Generalized weakness and deconditioning. The patient is very deconditioned and confined to bed. He is likely to require a prolonged rehab.
[2018-03-01 16:00] VITALS: BP 144/84
[2018-03-01] MEDS: PERCOCET 5MG/325MG TAB PO PRN ×2 (17:30→22:49)
[2018-03-01 20:00] VITALS: BP 125/86
[2018-03-01] MEDS: ATORVASTATIN 20 MG TAB PO SCH (20:20)
[2018-03-02] VITALS (8 sets, daily range): BP systolic 125–184; BP diastolic 58–97
[2018-03-02] MEDS: SLF 3 ML SYR IV SCH ×3 (05:42→21:42)
[2018-03-02] MEDS: CARVedilol 6.25 MG TAB PO SCH ×3 (05:43→18:22)
[2018-03-02] MEDS: **hydrALAZINE** 10 MG TAB PO SCH ×2 (05:44→21:46)
[2018-03-02 06:00] LABS: BASO % 0.1 % (0.0-1.0); EOS # 0.1 10^3/uL (0.0-0.50); EOS % 1.3 % (0.0-3.0); HEMATOCRIT 29.8 % (42.0-52.0); HEMOGLOBIN 9.8 g/dl (13.5-17.5); LYMPH # 0.7 10^3/uL (1.5-4.5); LYMPH % 6.2 % (24.0-44.0); MEAN CORPUSCULAR HEMOGLOBIN 32.1 pg (27.0-33.0); MEAN CORPUSCULAR HGB CONC 32.9 g/dl (32.0-36.5); MEAN CORPUSCULAR VOLUME 97.7 fl (80.0-96.0); MONO # 0.7 10^3/uL (0.0-0.8); MONO % 6.7 % (0.0-5.0); NEUTROPHILS # 9.4 10^3/uL (1.8-7.7); NEUTROPHILS % 85.2 % (36.0-66.0); RED BLOOD COUNT 3.05 10^6/uL (4.30-6.10)
[2018-03-02 06:01] LABS: PLATELET COUNT, AUTOMATED 45 10^3/uL (150-450)
[2018-03-02 06:29] LABS: ALBUMIN 1.6 GM/DL (3.2-5.2); BILIRUBIN,TOTAL 1.4 MG/DL (0.2-1.0); CALCIUM LEVEL 6.3 MG/DL (8.8-10.2); CREATININE FOR GFR 5.34 MG/DL (0.70-1.30); GLOMERULAR FILTRATION RATE 11.7 (>49); MAGNESIUM LEVEL 2.2 MG/DL (1.8-2.4); POTASSIUM SERUM 4.4 MEQ/L (3.5-5.1); TOTAL PROTEIN 5.7 GM/DL (6.4-8.2)
[2018-03-02] MEDS: ONDANSETRON 4MG/2ML VIAL (J2405) IV PRN ×2 (07:33→14:20)
--- NOTE | 2018-03-02 08:39 | IPN ---
DATE OF SERVICE: 03/02/2018 Mr. Eng fortunately converted back to sinus rhythm last night. He has been maintaining with heart rate in 60s and 70s. Subjectively though he does not feel well. He tells me that he hates his bed even though he cannot specifically explain why. He also complains about mild nausea. Denies any chest pain or shortness of breath. Continues to feel depressed. Vital signs: Blood pressure 164/90, heart rate 73, saturation 98% on 1 liter of oxygen, and he is afebrile. He made about 74 mL of urine yesterday. Weight is 158. He is alert, oriented, appropriate. Jugular venous pulse is not up. Lungs are reasonable clear to auscultation. I do not appreciate any wheezing or crackles. Heart exam reveals regular rhythm. No gallop. Abdomen is morbidly obese but soft. Extremities: There is trace edema. He has fairly minimal mobility in his lower extremities. LABORATORY: Hemoglobin 9.8, hematocrit 29, platelet count 45,000. Basic metabolic panel: Sodium 135, potassium 4.4, BUN 60, creatinine 5.3, glucose 100. Albumin is 1.6. ASSESSMENT AND PLAN: Mr. Eng is a 62-year-old man who has multity of chronic medical issues but currently is recovering after cardiac arrest brought on probably by septic shock, as a complication developed acute renal failure for which he has been currently dialyzed. There is still hope that he will recover some of his renal function. He also continues to have thrombocytopenia. As a further complicating factor, he developed atrial fibrillation two days ago but currently he is back in sinus rhythm after he started receiving amiodarone yesterday. Because he has some nausea, I am going to reduce to dose of amiodarone to just 200 mg twice a day and we will continue his Coreg and statin. Unfortunately I do not believe that we can start him on anticoagulation due to his fairly severe thrombocytopenia. He will need supportive management. He initially expressed desire to undergo coronary angiography but I do not think that it is conceivable to proceed in his current condition.
[2018-03-02] MEDS: predniSONE 20 MG TAB PO SCH (10:00)
[2018-03-02] MEDS: NYSTATIN 100,000 UNITS/GM TOPICAL PWD 15 GM TOP SCH ×2 (10:00→21:40)
[2018-03-02] MEDS: PANTOPRAZOLE 40MG INJ (PROTONIX) (C9113) IV SCH (10:00)
[2018-03-02] MEDS: FOLIC ACID 1 MG TAB PO SCH (10:00)
[2018-03-02] MEDS: EUCERIN 120GM CREAM TOP SCH ×2 (10:00→21:41)
[2018-03-02] MEDS: AMIODARONE 200 MG TAB (PACERONE) PO SCH ×2 (10:00→21:39)
[2018-03-02] MEDS: PERCOCET 5MG/325MG TAB PO PRN ×2 (10:01→18:22)
[2018-03-02] MEDS: MULTIVITAMINS/MINERALS THERAP 1 TAB PO SCH (10:01)
[2018-03-02] MEDS: FLUoxetine 20 MG CAP PO SCH (10:02)
[2018-03-02] MEDS ORDERED: HEPARIN 1,000 UNITS/ML 10ML VIAL (FOR RADIOLOGY& DIALYSIS ONLY) XX ONE (11:15)
--- NOTE | 2018-03-02 14:29 | IPNPDOC ---
Text Note Date of Service The patient was seen on 03/02/18. NOTE Patient was examined at bedside this afternoon. He had no acute complaints. He is scheduled for dialysis today, without heparin due to his thrombocytopenia. He continues to be anuric, making very little urine in A 24 period. No new complaints PHYSICAL EXAMINATION: VITALS See Below GENERAL APPEARANCE: Obese gentleman, resting comfortably in bed, does not appear to be any distress ENT:Neck supple, no thyromegaly, JVD THORAX: Symmetrical. LUNGS: Clear, diminished breath sounds due to patient's body habitus HEART: S1 and S2 is present, irregular rate and irregular rhythm ABDOMEN: Soft. No masses. Bowel sounds are present. TRUNK/SPINE:Straight. EXTREMITIES: Moves all extremities equally. No gross deformities. Dressing wrapped around patient's left lower extremity. PULSES: 2+ upper and lower extremity . Labs See Below PROBLEMS: 1. Acute renal failure superimposed on chronic kidney disease. Currently oliguric and dialysis dependent. He was dialyzed on 03/01/2018. He is scheduled for dialysis later today without heparin due to his thrombocytopenia. 2. Atrial fibrillation. New-onset atrial fibrillation, cardiology has been consulted. He is currently on amiodarone. Not suitable for anticoagulation due to thrombocytopenia. 3. Thrombocytopenia. Continue to monitor, his continue heparin during dialysis 4. Anemia. Stable, continue to monitor 5. Generalized weakness and deconditioning. Due to patient's body habitus, and confinement to bed rehabilitation will be prolonged with patient. VS,Nadeembone, I+O VS, Fishbone, I+O Laboratory Tests 03/02/18 05:41 Red Blood Count 3.05 L, Mean Corpuscular Volume 97.7 H, Mean Corpuscular Hemoglobin 32.1, Mean Corpuscular Hemoglobin Concent 32.9, Red Cell Distribution Width 15.1 H, Neutrophils (%) (Auto) 85.2 H, Lymphocytes (%) (Auto) 6.2 L, Monocytes (%) (Auto) 6.7 H, Eosinophils (%) (Auto) 1.3, Basophils (%) (Auto) 0.1, Neutrophils # (Auto) 9.4 H, Lymphocytes # (Auto) 0.7 L, Monocytes # (Auto) 0.7, Eosinophils # (Auto) 0.1, Basophils # (Auto) 0.0, Calcium Level 6.3 L, Aspartate Amino Transf (AST/SGOT) 61 H, Alanine Aminotransferase (ALT/SGPT) 220 H, Alkaline Phosphatase 119 H, Total Bilirubin 1.4 H, Total Protein 5.7 L, Albumin 1.6 L Vital Signs Date Time Temp Pulse Resp B/P (MAP) Pulse Ox O2 Delivery O2 Flow Rate FiO2 03/02/18 13:01 68 158/84 03/02/18 12:54 97.8 18 Room Air 97.0 03/02/18 08:00 99 I&O- Last 24 Hours up to 6 AM 03/02/18 05:59 Intake Total 1000 ml Output Total 124 ml Balance 876 ml GME ATTESTATION GME ATTESTATION My faculty preceptor for this patient encounter was physically present during the encounter and was fully available. All aspects of the patient interview, examination, medical decision making process, and medical care plan development were reviewed and approved by the faculty preceptor. The faculty preceptor is aware and concurs with the plan as stated in the body of this note and will at test to such by his/her cosignature. ATTENDING NOTE Pt was examined today AM at bedside. No signs of renal recovery at this time. Anuric. HD today with UF Goal ~2L as tolerated. Rt subclavian catheter being used. Pt to get tunneled HD catheter if there are no signs of renal recovery over the weekend. HD without heparin due to thrombocytopenia. STEVEN OVERTON DO Mar 02, 2018 13:56 LOLIS PRESSLEY MD Mar 02, 2018 21:45
--- NOTE | 2018-03-02 17:17 | IPNPDOC ---
Date Seen The patient was seen on 03/02/18. Progress Note SUBJECTIVE: Patient is a 62-year-old male with fall for which he was evaluated by orthopedic surgery and determined that no intervention was required. Chronic left lower extremity wound and chronic indwelling Anderson catheter with both revealing microbial activity. Patient started on a ntibiotics. Patient was found unresponsive histotechnologist of 02/19/2018. He underwent for cardiopulmonary resuscitative events with successful return of spontaneous circulation obtained after each event. Patient was intubated, mechanically ventilated, and placed on three pressors. Elevated troponin without ST elevation possibly secondary to demand ischemia. Poor renal perfusion with anuria requiring hemodialysis. Successfully extubated on 02/24/2018 and transferred to hospitalist service. Patient is evaluated at bedside this morning. Patient says that he feels nauseous, vomiting, and has abdominal pain. He is not eating. He feels as though food and liquid gets stuck in the back of his throat. He is not short of breath and does not have chest pain. He would like to get out of the bed he currently has. OBJECTIVE PHYSICAL EXAMINATION: VITAL SIGNS: Please see below. GENERAL: Morbidly obese male, alert and conversant, somewhat despondent, appropriately dressed, in no acute distress. HEENT: Atraumatic, normocephalic, PERRL, EOMI, oral mucosa appears pink and moist, nasal septum appears midline, nares are patent, dentition is poor. CARDIOVASCULAR: Regular heart rate and rhythm, normal S1 and S2, no audible murmur, rub, click, healing burn to anterior chest from resuscitative pads with scar noted, no active bleeding or drainage. RESPIRATORY: Limited exam secondary to body habitus, clear to auscultation bilaterally, adequate inspiratory and expiratory airway excursion, symmetric airway entry, no audible focal consolidations, no wheeze, rhonchi, crackles. ABDOMINAL: Morbid, soft, painful to palpatory examination, stethoscope auscultation and palpation did not elicit any pain, bowel sounds are diminished throughout, no apparent guarding or rebound, difficult to assess organomegaly due to body habitus. EXTREMITIES: Left lower extremity is bandaged in an [place] bandage, no strike- through noted, chronic venous status changes noted on right lower extremity, no clubbing, no cyanosis, no peripheral edema. NEUROLOGICAL: No focal neurological deficits. PSYCHOLOGICAL: Despondent, but alert and conversant. LABORATORY DATA, IMAGING STUDIES, MICROBIOLOGY: Please see below. Right complete shoulder x-ray on 02/28/2018 - no acute fracture or dislocation. Echocardiogram: Left ventricular diastolic dysfunction, dilated right heart chambers with hypokinesis of right ventricular free wall, moderate pulmonary hypertension. DVT prophylaxis ordered?: TEDs, sequentials, knee high compression. ASSESSMENT AND PLAN: This is a 62-year-old male with multiple co- morbidities and a complicated hospital course that required intubation, mechanical ventilation, and pressor support. Multifactorial etiology. PROBLEMS: 1. Reduced oral intake with nausea, vomiting, and abdominal pain: Patient is unwilling/unable to eat and has had reduced oral intake. A renal diet with Nepro supplementation have been ordered. Ordered a KUB to evaluate for ileus or obstruction. Patient has poor dentition which may be a contributing factor to his reduced intake. Will add Chlorhexidine mouth swab. Patient is also significantly depressed which could also be contributing to his poor oral intake. 2. Mild leukocytosis: Afebrile without alarming signs of infection. Patient has been on steroids which could account for the slight increase in white count. Will monitor for the time being. Completed a 10-day course of antibiotics on 02/28/2018. Will monitor lines and tubes for signs of infection. Blood cultures have been negative. 3. New onset atrial fibrillation with rapid ventricular response: Patient converted to normal sinus rhythm. Cardiology consulted. Due to nausea his Amiodarone has been reduced to 200mg by mouth twice daily. Continue with Carve dilol 6.25mg by mouth every 6 hours with hold parameters and Lipitor 40mg by mouth nightly. Patient may benefit from cardiac evaluation with angiography; however, patient remains on hemodialysis and has a significant thrombocytopenia so further invasive cardiac evaluation is on hold for the time being. 4. Acute renal failure superimposed on chronic kidney disease: Nephrology is consulted. Patient continues with hemodialysis secondary to an anuric renal failure secondary to acute tubular necrosis. No Heparin to be administered secondary to severe thrombocytopenia. Prior GFR was 49.1. Renal recovery is possible. Will continue to monitor closely. Renal diet. Nepro supplementation ordered. 5. Weakness of critical illness: Physical and occupational therapy have been ordered. Shoulder x-ray was negative. Patient may likely require extensive rehabilitation. Physical therapy and occupational therapy recommended continued rehabilitative services upon discharge when appropriate. 6. Acute hypercarbic hypoxic respiratory failure: Required intubation and mechanical ventilation. Successfully extubated. Currently requiring oxygen via nasal cannula with adequate saturations. Weaning oxygen therapy. Continuing tapering dose of prednisone and will reduce to 10mg starting on 03/03/2018. 7. Elevated troponin with lactic acidosis: Likely secondary to demand ischemia from hypoperfusion that required extensive pressor support. Echocardiogram obtained as resulted above. Cardiology consulted with recommendations for possible further cardiac intervention once patient is stabilized from a medical standpoint, if possible. Discontinued aspirin secondary to worsening thrombocytopenia. No nephrotoxic agents given acute tubular necrosis and currently requiring hemodialysis. Hydralazine has been initiated for systolic blood pressure > 160. Continue Atorvastatin. Continue with beta-geri. 8. Shock liver: Likely secondary to demand ischemia and hypotension. Transaminitis is significantly improving. Continue statin therapy. 9. Possible acute occult fracture of left knee: Orthopedics initially consulted. Recommended vascular surgery consultation. No surgical intervention secondary to patient's significant comorbidities. Nonweightbearing of left lower extremity. 10. Anemia: Peripheral smear obtained which revealed "Anemia with minimal macrocytosis and few circulating nucleated red blood cells, likely multifactorial. No abnormal immature leukocytes identified. Mild thr ombocytopenia with essentially normal platelet morphology." Hypoproliferation as indicated by reticulocyte index. Hemoglobin currently stable. No signs of active bleeding. 11. Thrombocytopenia: Patient was previously on Heparin for DVT prophylaxis, but developed a precipitous drop in platelet count. Heparin was discontinued. TEDS, sequentials, and knee high compression has been ordered for DVT prophylaxis. No Aspirin due to thrombocytopenia. Likely secondary to acute and complicated hospital course due to cardiac arrest. 12. 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 Wound bases are clean and non-malodorous. Completed a ten-day course of antibiotic therapy. Blood cultures negative. 13. Chronic indwelling Anderson catheter with abnormal urinalysis and positive urine culture: Likely result of chronic indwelling Anderson catheter. Completed 10-day antibiotic course. 14. Alcohol dependence: Patient has significant alcohol history. No withdrawal symptoms during hospital course. Have started Folic acid and Multivitamin. No need for Benzodiazepine at this time. 15. Depression: Continue with Fluoxetine. DISPOSITION: Prolonged hospital course. VS, I&O, 24H, Fishbone Vital Signs/I&O Vital Signs Date Time Temp Pulse Resp B/P (MAP) Pulse Ox O2 Delivery O2 Flow Rate FiO2 03/02/18 13:01 68 158/84 03/02/18 12:54 97.8 18 Room Air 97.0 03/02/18 08:00 99 I&O- Last 24 Hours up to 6 AM 03/02/18 06:00 Intake Total 900 ml Output Total 90 ml Balance 810 ml Laboratory Data 24H LABS Laboratory Tests 2 03/02/18 05:41: Immature Granulocyte % (Auto) 0.5, White Blood Count 11.0H, Red Blood Count 3.05L, Hemoglobin 9.8L, Hematocrit 29.8L, Mean Corpuscular Volume 97.7H, Mean Corpuscular Hemoglobin 32.1, Mean Corpuscular Hemoglobin Concent 32.9, Red Cell Distribution Width 15.1H, Platelet Count 45L, Neutrophils (%) (Auto) 85.2H, Lymphocytes (%) (Auto) 6.2L, Monocytes (%) (Auto) 6.7H, Eosinophils (%) (Auto) 1.3, Basophils (%) (Auto) 0.1, Neutrophils # (Auto) 9.4H, Lymphocytes # (Auto) 0.7L, Monocytes # (Auto) 0.7, Eosinophils # (Auto) 0.1, Basophils # (Auto) 0.0, Nucleated Red Blood Cells % (auto) 0.0, Anion Gap 11, Glomerular Filtration Rate 11.7L, Blood Urea Nitrogen 60H, Creatinine 5.34H, Sodium Level 135L, Potassium Level 4.4, Chloride Level 100, Carbon Dioxide Level 24, Calcium Level 6.3L, Aspartate Amino Transf (AST/SGOT) 61H, Alanine Aminotransferase (ALT/SGPT) 220H, Alkaline Phosphatase 119H, Total Bilirubin 1.4H, Total Protein 5.7L, Albumin 1.6L, Magnesium Level 2.2, Albumin/Globulin Ratio 0.39L 03/02/18 07:02: CBC/BMP Laboratory Tests 03/02/18 05:41 Red Blood Count 3.05 L, Mean Corpuscular Volume 97.7 H, Mean Corpuscular Hemoglobin 32.1, Mean Corpuscular Hemoglobin Concent 32.9, Red Cell Distribution Width 15.1 H, Neutrophils (%) (Auto) 85.2 H, Lymphocytes (%) (Auto) 6.2 L, Monocytes (%) (Auto) 6.7 H, Eosinophils (%) (Auto) 1.3, Basophils (%) (Auto) 0.1, Neutrophils # (Auto) 9.4 H, Lymphocytes # (Auto) 0.7 L, Monocytes # (Auto) 0.7, Eosinophils # (Auto) 0.1, Basophils # (Auto) 0.0, Calcium Level 6.3 L, Aspartate Amino Transf (AST/SGOT) 61 H, Alanine Aminotransferase (ALT/SGPT) 220 H, Alkaline Phosphatase 119 H, Total Bilirubin 1.4 H, Total Protein 5.7 L, Albumin 1.6 L CARMINE COCHRAN DO Mar 02, 2018 16:34
[2018-03-02] MEDS: ATORVASTATIN 20 MG TAB PO SCH (21:39)
--- NOTE | 2018-03-02 22:05 | ECGEPIP ---
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 Electronically Signed On 03-02-2018 22:05:14 EST by Ravi Huddleston
[2018-03-03] VITALS (7 sets, daily range): BP systolic 140–176; BP diastolic 70–94
[2018-03-03] MEDS: CHLORHEXIDINE GLUCONATE 0.12 % 15ML UDC (PERIDEX ORAL RINSE) MT SCH ×3 (00:02→21:00)
[2018-03-03] MEDS: CARVedilol 6.25 MG TAB PO SCH ×4 (00:03→18:40)
[2018-03-03] MEDS: SLF 3 ML SYR IV SCH ×3 (05:04→21:26)
[2018-03-03 05:21] LABS: BASO % 0.1 % (0.0-1.0); EOS # 0.2 10^3/uL (0.0-0.50); EOS % 1.4 % (0.0-3.0); HEMATOCRIT 28.7 % (42.0-52.0); HEMOGLOBIN 9.7 g/dl (13.5-17.5); LYMPH # 0.6 10^3/uL (1.5-4.5); LYMPH % 6.1 % (24.0-44.0); MEAN CORPUSCULAR HEMOGLOBIN 32.3 pg (27.0-33.0); MEAN CORPUSCULAR HGB CONC 33.8 g/dl (32.0-36.5); MEAN CORPUSCULAR VOLUME 95.7 fl (80.0-96.0); MONO # 0.7 10^3/uL (0.0-0.8); MONO % 6.7 % (0.0-5.0); NEUTROPHILS % 85.3 % (36.0-66.0); WHITE BLOOD COUNT 10.6 10^3/uL (4.0-10.0)
[2018-03-03 05:23] LABS: PLATELET COUNT, AUTOMATED 65 10^3/uL (150-450)
[2018-03-03 05:41] LABS: ALBUMIN 1.7 GM/DL (3.2-5.2); BILIRUBIN,TOTAL 1.3 MG/DL (0.2-1.0); CALCIUM LEVEL 6.7 MG/DL (8.8-10.2); CREATININE FOR GFR 3.98 MG/DL (0.70-1.30); GLOMERULAR FILTRATION RATE 16.4 (>49); MAGNESIUM LEVEL 2.2 MG/DL (1.8-2.4); POTASSIUM SERUM 3.7 MEQ/L (3.5-5.1)
[2018-03-03] MEDS: ONDANSETRON 4MG/2ML VIAL (J2405) IV PRN (06:42)
[2018-03-03] MEDS: **hydrALAZINE** 10 MG TAB PO SCH (06:43)
[2018-03-03] MEDS: PANTOPRAZOLE 40MG INJ (PROTONIX) (C9113) IV SCH (08:16)
[2018-03-03] MEDS: predniSONE 10 MG TAB PO SCH (08:17)
[2018-03-03] MEDS: MULTIVITAMINS/MINERALS THERAP 1 TAB PO SCH (08:17)
[2018-03-03] MEDS: FLUoxetine 20 MG CAP PO SCH (08:17)
[2018-03-03] MEDS: AMIODARONE 200 MG TAB (PACERONE) PO SCH ×2 (08:17→21:23)
[2018-03-03] MEDS: FOLIC ACID 1 MG TAB PO SCH (08:17)
[2018-03-03] MEDS: EUCERIN 120GM CREAM TOP SCH ×2 (08:18→21:24)
[2018-03-03] MEDS: NYSTATIN 100,000 UNITS/GM TOPICAL PWD 15 GM TOP SCH ×2 (08:18→21:24)
--- NOTE | 2018-03-03 08:53 | REP ---
Portable abdomen: Three views presented. History: Abdomen pain. Comparison study: June 26, 2006. Findings: Air-filled normal caliber colon is seen. A few air filled loops of nondilated small bowel are noted in the right mid abdomen. There is no evidence of obstruction. Degenerative changes are seen in the left hip and lumbar spine. No pathologic calcification or mass lesion is observed. Electronically Signed by Catracho Santana MD 03/03/2018 08:44 A
[2018-03-03] MEDS ORDERED: CEPACOL LOZENGE PO PRN (09:30)
--- NOTE | 2018-03-03 10:59 | IPNPDOC ---
Text Note Date of Service The patient was seen on 03/03/18. NOTE Patient was examined at bedside this afternoon. Nursing staff report pt has been having depressed mood with decrease PO intake. He reported that he feels slightly down given his current condition. He admits to poor appetite but continues to drink fluids. PHYSICAL EXAMINATION: VITALS See Below GENERAL APPEARANCE: Obese gentleman, confirmed to hospital bed, in no apparent distress ENT:Neck supple, no thyromegaly, JVD, no thyromegaly LUNGS: Clear, no wheezing, overal breath sound diminished breath sounds due to patient's body habitus, HEART: S1 and S2 is present, irregular rate and irregular rhythm ABDOMEN: Soft. No masses. Bowel sounds are present. EXTREMITIES: Moves all extremities equally. No gross deformities. Dressing wrapped around patient's left lower extremity. Labs See Below PROBLEMS: 1. Acute renal failure superimposed on chronic kidney disease. He had dialyses yesterday without heparin due to his thrombocytopenia. 2000 liters of fluid was removed. He continues to make very little urine and is still dialysis dependent. 2. Atrial fibrillation. Currently sinus, cardiology has been consulted. He is currently on amiodarone. Not suitable for anticoagulation due to thrombocytopenia. 3. Thrombocytopenia. Improved. Hold heparin, continue to monitor 4. Anemia. Stable, continue to monitor 5. Generalized weakness and deconditioning secondary to body habitus, will require rehab VS,Connie, I+O VS, Connie, I+O Laboratory Tests 03/03/18 05:08 Red Blood Count 3.00 L, Mean Corpuscular Volume 95.7, Mean Corpuscular Hemoglobin 32.3, Mean Corpuscular Hemoglobin Concent 33.8, Red Cell Distribution Width 14.6 H, Neutrophils (%) (Auto) 85.3 H, Lymphocytes (%) (Auto) 6.1 L, Monocytes (%) (Auto) 6.7 H, Eosinophils (%) (Auto) 1.4, Basophils (%) (Auto) 0.1, Neutrophils # (Auto) 9.0 H, Lymphocytes # (Auto) 0.6 L, Monocytes # (Auto) 0.7, Eosinophils # (Auto) 0.2, Basophils # (Auto) 0.0, Calcium Level 6.7 L, Aspartate Amino Transf (AST/SGOT) 55 H, Alanine Aminotransferase (ALT/SGPT) 192 H, Alkaline Phosphatase 120 H, Total Bilirubin 1.3 H, Total Protein 6.0 L, Albumin 1.7 L Vital Signs Date Time Temp Pulse Resp B/P (MAP) Pulse Ox O2 Delivery O2 Flow Rate FiO2 03/03/18 08:00 97.6 73 19 159/87 (111) 94 Room Air 03/02/18 12:54 97.0 I&O- Last 24 Hours up to 6 AM 03/03/18 06:00 Intake Total 60 ml Output Total 2150 ml Balance -2090 ml GME ATTESTATION GME ATTESTATION My faculty preceptor for this patient encounter was physically present during the encounter and was fully available. All aspects of the patient interview, examination, medical decision making process, and medical care plan development were reviewed and approved by the faculty preceptor. The faculty preceptor is aware and concurs with the plan as stated in the body of this note and will attest to such by his/her cosignature. STEVEN OVERTON DO Mar 03, 2018 10:11
--- NOTE | 2018-03-03 12:36 | REP ---
Unilateral left lower extremity arterial Doppler ultrasound exam: Tree: Vascular disease. Left-sided pain. Ulcer left lower extremity. Findings: Ankle brachial index could not be obtained due to presence of a large ulcer in the lower leg and ankle region. Similarly, we were not able to obtain Doppler velocity measurements from the distal posterior tibial and anterior tibial arteries for the same reason. Normal triphasic waveforms and normal velocities are otherwise obtained from the left lower extremity arteries. There is no evidence to suggest arterial stenosis. Velocity chart left lower extremity arteries: Left CHIEF ENTERPRISE ARCHITECT 54 cm/S Profunda 38 Proximal SFA 66 Mid SFA 69 Distal SFA 76 Popliteal 52 Proximal FIDEL 45 Tibioperoneal trunk 68 Proximal TANK CHARGER 60 Electronically Signed by Catracho Santana MD 03/03/2018 12:27 P
--- NOTE | 2018-03-03 13:07 | IPNPDOC ---
Date Seen The patient was seen on 03/03/18. Progress Note SUBJECTIVE: Patient is a 62-year-old male with fall for which he was evaluated by orthopedic surgery and determined that no intervention was required. Chronic left lower extremity wound and chronic indwelling Anderson catheter with both revealing microbial activity. Patient started on a ntibiotics. 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 He underwent for cardiopulmonary resuscitative events with successful return of spontaneous circulation obtained after each event. Patient was intubated, mechanically ventilated, and placed on three pressors. Elevated troponin without ST elevation possibly secondary to demand ischemia. Poor renal perfusion with anuria requiring hemodialysis. Successfully extubated on 02/24/2018 and transferred to hospitalist service. Patient is evaluated at bedside this morning. Patient continues to state that he is nauseous, but not vomiting. He has no abdominal pain. He continues to have diminished appetite. OBJECTIVE PHYSICAL EXAMINATION: VITAL SIGNS: Please see below. GENERAL: Morbidly obese male, alert and conversant, somewhat despondent, appropriately dressed, in no acute distress. HEENT: Atraumatic, normocephalic, PERRL, EOMI, oral mucosa appears pink and moist, nasal septum appears midline, nares are patent, dentition is poor. CARDIOVASCULAR: Regular heart rate and rhythm, normal S1 and S2, no audible murmur, rub, click, healing burn to anterior chest from resuscitative pads with scar noted, no active bleeding or drainage. RESPIRATORY: Limited exam secondary to body habitus, clear to auscultation bilaterally, adequate inspiratory and expiratory airway excursion, symmetric airway entry, no audible focal consolidations, no wheeze, rhonchi, crackles. ABDOMINAL: Morbid, soft, nondistended, nontender to palpation, bowel sounds are diminished throughout, no apparent guarding or rebound, difficult to assess organomegaly due to body habitus. EXTREMITIES: Left lower extremity with healing anterior vick ulcer that has granulation tissue present; somewhat wide-based elliptical ulcer with granulatio n tissue present, minimal biofilm, no slough noted, with bright red blood; strike-through noted on Kerlix and OptiLock; linear ulcer on dorsal aspect of left foot with dry sloughed skin, no drainage or active bleeding; chronic venous stasis changes with hemosiderosis noted on right lower extremity; trace peripheral edema in bilateral lower extremities, no clubbing, no cyanosis. NEUROLOGICAL: No focal neurological deficits. PSYCHOLOGICAL: Despondent, but alert and conversant. LABORATORY DATA, IMAGING STUDIES, MICROBIOLOGY: Please see below. Right complete shoulder x-ray on 02/28/2018 - no acute fracture or dislocation. Abdominal flat plate x-ray on 03/02/2018 - hold normal caliber colon, no evidence of obstruction, degenerative changes and left hip and lumbar spine. Left lower extremity arterial ultrasound on 03/03/2018 - unable to obtain ANTHONY or doppler measurements due to ulcer; normal triphasic waveforms and normal velocities from other lower extremity arteries; no evidence of arterial stenosis. Echocardiogram: Left ventricular diastolic dysfunction, dilated right heart chambers with hypokinesis of right ventricular free wall, moderate pulmonary hypertension. DVT prophylaxis ordered?: TEDs, sequentials, knee high compression. ASSESSMENT AND PLAN: This is a 62-year-old male with multiple co- morbidities and a complicated hospital course that required intubation, mechanical ventilation, and pressor support. Multifactorial etiology. PROBLEMS: 1. Reduced oral intake with nausea, vomiting, and abdominal pain: Continues to remain nauseous. Improved vomiting and abdominal pain. KUB obtained with no abnormalities noted. Patient is unwilling/unable to eat and has had reduced oral intake. A renal diet with Nepro supplementation have been ordered. Have added lozenges to aid with symptomatic relief of sore throat. Patient has poor dentition which may be a contributing factor to his reduced intake. Continue with Chlorhexidine mouth swab. Patient is also significantly depressed which could also be contributing to his poor oral intake. 2. Mild leukocytosis: Afebrile without alarming signs of infection. Patient has been on steroids which could account for the slight increase in white count. Will monitor for the time being. Completed a 10-day course of antibiotics on 02/28/2018. Will monitor lines and tubes for signs of infection. Blood cultu res have been negative. 3. New onset atrial fibrillation with rapid ventricular response: Patient c onverted to normal sinus rhythm. Cardiology consulted. Continue Amiodarone 200mg by mouth twice daily. Continue with Carvedilol 6.25mg by mouth every 6 hours with hold parameters and Lipitor 40mg by mouth nightly. Patient may benefit from cardiac evaluation with angiography; however, patient remains on hemodialysis and has a significant thrombocytopenia so further invasive cardiac evaluation is on hold for the time being. 4. Acute renal failure superimposed on chronic kidney disease: Nephrology is consulted. Patient continues with hemodialysis secondary to an anuric renal failure secondary to acute tubular necrosis. Hemodialysis remove 2 L yesterday. No Heparin to be administered secondary to severe thrombocytopenia. Prior GFR was 49.1. Renal recovery is possible. Will continue to monitor closely. Renal diet. Nepro supplementation ordered. Electrolyte management by hemodialysis and nephrology recommendations. 5. Weakness of critical illness: Physical and occupational therapy have been ordered. Shoulder x-ray was negative. Patient may likely require extensive rehabilitation. Physical therapy and occupational therapy recommended continued rehabilitative services upon discharge when appropriate. 6. Acute hypercarbic hypoxic respiratory failure: Required intubation and mecha nical ventilation. Successfully extubated. Currently requiring oxygen via nasal cannula with adequate saturations. Weaning oxygen therapy. Continuing tapering dose of prednisone and will reduce to 10mg starting on 03/03/2018. 7. Elevated troponin with lactic acidosis: Likely secondary to demand ischemia from hypoperfusion that required extensive pressor support. Echocardiogram obtained as resulted above. Cardiology consulted with recommendations for possible further cardiac intervention once patient is stabilized from a medical standpoint, if possible. Discontinued aspirin secondary to worsening thrombocytopenia. No nephrotoxic agents given acute tubular necrosis and currently requiring hemodialysis. Hydralazine has been initiated for systolic blood pressure > 160. Continue Atorvastatin. Continue with beta-geri. 8. Shock liver: Continues to make daily improvements. Continue statin therapy. 9. Possible acute occult fracture of left knee: Orthopedics initially consulted. Recommended vascular surgery consultation. No surgical intervention secondary to patient's significant comorbidities. Nonweightbearing of left lower extremity. Left lower extremity arterial Doppler ultrasound obtained. Limited secondary to ulcer on posterior aspect of left lower leg; however, no arterial stenosis noted in other arteries of the left lower extremity. 10. Anemia: Peripheral smear obtained which revealed "Anemia with minimal macrocytosis and few circulating nucleated red blood cells, likely multifactorial. No abnormal immature leukocytes identified. Mild thrombocytopenia with essentially normal platelet morphology." Hypoproliferation as indicated by reticulocyte index. Hemoglobin currently stable. No signs of active bleeding. 11. Thrombocytopenia: Patient was previously on Heparin for DVT prophylaxis, but developed a precipitous drop in platelet count. Heparin was discontinued. TEDS, sequentials, and knee high compression has been ordered for DVT prophylaxis. No Aspirin due to thrombocytopenia. Heparin was administered during hemodialysis sessions. This is discontinued. Thrombocytopenia is improving. Likely secondary to acute and complicated hospital course due to cardiac arrest. 12. 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 Wound bases are clean and non-malodorous. Completed a ten-day course of antibiotic therapy. Blood cultures negative. Dressing changes with OptiLock, Kerlix, and Coban. 13. Chronic indwelling Anderson catheter with abnormal urinalysis and positive urine culture: Likely result of chronic indwelling Anderson catheter. Completed 10-day antibiotic course. 14. Alcohol dependence: Patient has significant alcohol history. No withdrawal symptoms during hospital course. Have started Folic acid and Multivitamin. No need for Benzodiazepine at this time. 15. Depression: Continue with Fluoxetine. DISPOSITION: Prolonged hospital course. VS, I&O, 24H, Fishbone Vital Signs/I&O Vital Signs Date Time Temp Pulse Resp B/P (MAP) Pulse Ox O2 Delivery O2 Flow Rate FiO2 03/03/18 08:00 97.6 73 19 159/87 (111) 94 Room Air 03/02/18 12:54 97.0 I&O- Last 24 Hours up to 6 AM 03/03/18 06:00 Intake Total 60 ml Output Total 2150 ml Balance -2090 ml Laboratory Data 24H LABS Laboratory Tests 2 03/03/18 05:08: Immature Granulocyte % (Auto) 0.4, White Blood Count 10.6H, Red Blood Count 3.00L, Hemoglobin 9.7L, Hematocrit 28.7L, Mean Corpuscular Volume 95.7, Mean Corpuscular Hemoglobin 32.3, Mean Corpuscular Hemoglobin Concent 33.8, Red Cell Distribution Width 14.6H, Platelet Count 65L, Neutrophils (%) (Auto) 85.3H, Lymphocytes (%) (Auto) 6.1L, Monocytes (%) (Auto) 6.7H, Eosinophils (%) (Auto) 1.4, Basophils (%) (Auto) 0.1, Neutrophils # (Auto) 9.0H, Lymphocytes # (Auto) 0.6L, Monocytes # (Auto) 0.7, Eosinophils # (Auto) 0.2, Basophils # (Auto) 0.0, Nucleated Red Blood Cells % (auto) 0.0, Immature Platelet Fraction 6.0, Anion Gap 8, Glomerular Filtration Rate 16.4L, Blood Urea Nitrogen 38H, Creatinine 3.98H, Sodium Level 138, Potassium Level 3.7, Chloride Level 100, Carbon Dioxide Level 30, Calcium Level 6.7L, Aspartate Amino Transf (AST/SGOT) 55H, Alanine Aminotransferase (ALT/SGPT) 192H, Alkaline Phosphatase 120H, Total Bilirubin 1.3H, Total Protein 6.0L, Albumin 1.7L, Magnesium Level 2.2, Albumin/Globulin Ratio 0.40L CBC/BMP Laboratory Tests 03/03/18 05:08 Red Blood Count 3.00 L, Mean Corpuscular Volume 95.7, Mean Corpuscular Hemoglobin 32.3, Mean Corpuscular Hemoglobin Concent 33.8, Red Cell Distribution Width 14.6 H, Neutrophils (%) (Auto) 85.3 H, Lymphocytes (%) (Auto) 6.1 L, Monocytes (%) (Auto) 6.7 H, Eosinophils (%) (Auto) 1.4, Basophils (%) (Auto) 0.1, Neutrophils # (Auto) 9.0 H, Lymphocytes # (Auto) 0.6 L, Monocytes # (Auto) 0.7, Eosinophils # (Auto) 0.2, Basophils # (Auto) 0.0, Calcium Level 6.7 L, Aspartate Amino Transf (AST/SGOT) 55 H, Alanine Aminotransferase (ALT/SGPT) 192 H, Alkaline Phosphatase 120 H, Total Bilirubin 1.3 H, Total Protein 6.0 L, Albumin 1.7 L CARMINE COCHRAN DO Mar 03, 2018 13:07
--- NOTE | 2018-03-03 14:30 | IPN ---
DATE: 03/03/2018 Mr. Eng remains approximately the same. He still complains about not feeling well even though he cannot be very specific. He hates his bed and he says that he has a little bit of nausea, but overall denies dyspnea, denies chest pain. He makes a little bit of urine yesterday. His urine output is about 200 mL today and his bag has about 150 mL already. Blood pressure 159/87. It has been similar or maybe slightly higher most of the time. Heart rate in 70s. He is afebrile. Jugular venous pulse (JVP) is difficult to estimate due to his body habitus but grossly does not appear elevated. Lungs are reasonably clear even though it is difficult to auscultate in due to the morbid obesity. Heart exam reveals regular rhythm. I do not appreciate any gallop or murmur. Abdomen is soft. There is trace edema. Laboratory ardon: Hemoglobin is 9.7, hematocrit 28, platelet count 65,000. Basic metabolic panel: Sodium 138, potassium 3.7, BUN 38, creatinine 4, and glucose 87. ASSESSMENT AND PLAN: Mr. Eng is a 62-year-old man who presented with essentially cardiac arrest secondary to septic shock. He was successfully resuscitated but developed acute renal failure. He is undergoing hemodialysis. Has further complicating issues. He had episodes of atrial fibrillation. He had a run of nonsustained ventricular tachycardia lasting 9 beats earlier today. At this point, I am giving him beta-blockers and hydralazine for blood pressure control. He is on amiodarone to prevent recurrences of atrial fibrillation and also because he has ventricular tachycardia. He has not been anticoagulated due to severe thrombocytopenia, but because his platelet count is recovering I think we will be able to put him on anticoagulation within next day or so. At this point, we are awaiting the evolution of his renal function before deciding on further management. Even though he probably would benefit for coronary angiography his overall condition is not overly conducive to any invasive interventions. He is also with DO NOT RESUSCITATE, DO NOT INTUBATE. We will reevaluate this plan on a daily basis.
[2018-03-03] MEDS: ATORVASTATIN 20 MG TAB PO SCH (21:23)
[2018-03-04] VITALS (8 sets, daily range): BP systolic 120–171; BP diastolic 65–110
[2018-03-04] MEDS: CARVedilol 6.25 MG TAB PO SCH ×4 (00:41→18:30)
[2018-03-04] MEDS ORDERED: PERCOCET 5MG/325MG TAB PO ONE (03:15)
[2018-03-04 05:19] LABS: EOS # 0.2 10^3/uL (0.0-0.50); EOS % 1.6 % (0.0-3.0); HEMATOCRIT 27.8 % (42.0-52.0); HEMOGLOBIN 9.4 g/dl (13.5-17.5); LYMPH % 8.3 % (24.0-44.0); MEAN CORPUSCULAR HEMOGLOBIN 32.2 pg (27.0-33.0); MEAN CORPUSCULAR HGB CONC 33.8 g/dl (32.0-36.5); MEAN CORPUSCULAR VOLUME 95.2 fl (80.0-96.0); MONO # 0.8 10^3/uL (0.0-0.8); MONO % 7.1 % (0.0-5.0); NEUTROPHILS # 9.5 10^3/uL (1.8-7.7); NEUTROPHILS % 82.5 % (36.0-66.0); RED BLOOD COUNT 2.92 10^6/uL (4.30-6.10); WHITE BLOOD COUNT 11.5 10^3/uL (4.0-10.0)
[2018-03-04 05:23] LABS: PLATELET COUNT, AUTOMATED 76 10^3/uL (150-450)
[2018-03-04 05:45] LABS: ALBUMIN 1.6 GM/DL (3.2-5.2); BILIRUBIN,TOTAL 1.2 MG/DL (0.2-1.0); CALCIUM LEVEL 6.4 MG/DL (8.8-10.2); CREATININE FOR GFR 5.01 MG/DL (0.70-1.30); GLOMERULAR FILTRATION RATE 12.6 (>49); MAGNESIUM LEVEL 2.1 MG/DL (1.8-2.4); POTASSIUM SERUM 3.7 MEQ/L (3.5-5.1); TOTAL PROTEIN 5.7 GM/DL (6.4-8.2)
[2018-03-04] MEDS: SLF 3 ML SYR IV SCH ×3 (06:00→20:37)
[2018-03-04] MEDS: PANTOPRAZOLE 40MG INJ (PROTONIX) (C9113) IV SCH (09:07)
[2018-03-04] MEDS: FOLIC ACID 1 MG TAB PO SCH (09:07)
[2018-03-04] MEDS: CHLORHEXIDINE GLUCONATE 0.12 % 15ML UDC (PERIDEX ORAL RINSE) MT SCH (09:07)
[2018-03-04] MEDS: FLUoxetine 20 MG CAP PO SCH (09:07)
[2018-03-04] MEDS: AMIODARONE 200 MG TAB (PACERONE) PO SCH ×2 (09:08→20:33)
[2018-03-04] MEDS: MULTIVITAMINS/MINERALS THERAP 1 TAB PO SCH (09:08)
[2018-03-04] MEDS: predniSONE 10 MG TAB PO SCH (09:08)
[2018-03-04] MEDS: EUCERIN 120GM CREAM TOP SCH ×2 (09:09→20:36)
[2018-03-04] MEDS: NYSTATIN 100,000 UNITS/GM TOPICAL PWD 15 GM TOP SCH ×2 (09:09→20:35)
--- NOTE | 2018-03-04 11:56 | IPN ---
DATE: 03/04/2018 Mr. Eng is not in a good mood today. He continues to complain about very uncomfortable bed. He also reports that he has mild nausea. Denies any dyspnea. Denies any chest discomfort. 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 Vital signs: Blood pressure 146/75, heart rate has been 70s and 80s. He is afebrile. Weight this morning 162 kg. Jugular venous pressure is difficult to vp revenue cycle with his body habitus but it does not appear high. Lungs are reasonably clear but his effort is minimal and the air movement is relatively sluggish. Heart exam: Regular rhythm. No gallop or rub. Abdomen: Obese, but soft, about 1+ edema. He does have mild peripheral edema. Neurologically he is unchanged. He has paresis of lower extremities but upper extremities seem to have normal mobility. LABORATORY DATA Hemoglobin 9.4, hematocrit 27.8, platelet count 76,000. Basic metabolic panel: Sodium 134, potassium 3.7, BUN 45, creatinine 5 and glucose 79. The urine output was documented as 0 today and yesterday but in his bag there is bout 200 mL of urine. ASSESSMENT AND PLAN Mr. Eng is a 62-year-old man who was resuscitated from cardiac arrest likely brought on by septic shock. Unfortunately, he is left with renal failure and is currently undergoing dialysis. The condition also was complicated by development of atrial fibrillation and he had few episodes of nonsustained ventricular tachycardia, poor quality echocardiogram (morbid obesity) revealed grossly preserved left ventricle (LV) systolic function. From cardiac perspective he has not had any events since yesterday. He did have a run of nonsustained VT yesterday morning but nothing since. I would continue amiodarone at current dose of 400 mg daily for at least a few weeks. As far as the atrial fibrillation is concerned, again amiodarone should be continued in an attempt to prevent further episodes. He has not been anticoagulated because of severe thrombocytopenia. There has been some improvement in platelet count but at this point I am still not quite ready to introduce full anticoagulation. As far as the renal failure is concerned he is managed by nephrology. I suspect that there will not be any dialysis today. He seems to make a little more urine but so far I am not overly optimistic about recovery of renal function.
--- NOTE | 2018-03-04 13:41 | IPNPDOC ---
Date Seen The patient was seen on 03/04/18. Progress Note SUBJECTIVE: Patient complains of some persistent nausea but is not as severe as it has been in previous days he tells me his pain is well controlled he is otherwise frustrated that he is unable to get out of bed but he is continuing to do physical therapy exercises in his bed in an effort to get out of bed OBJECTIVE PHYSICAL EXAMINATION: VITAL SIGNS: Please see below. GENERAL: Morbidly obese man lying in bed at 30 angle he does not appear to be a in any acute distress he has a relatively flat affect HEENT: Cranial nerves appear grossly intact CARDIOVASCULAR: S1-S2 regular at this time. RESPIRATORY: Fairly clear but diminished breath sounds and distant secondary to body habitus. ABDOMINAL: Grossly obese but soft and nontender EXTREMITIES: No significant edema dressing is clean dry and intact LABORATORY DATA, IMAGING STUDIES, MICROBIOLOGY: Please see below. Echocardiogram: Left ventricular diastolic dysfunction, dilated right heart chambers with hypokinesis of right ventricular free wall, moderate pulmonary hypertension. DVT prophylaxis ordered?: TEDs, sequentials, knee high compression. No pharmacological agents secondary to thrombocytopenia ASSESSMENT AND PLAN: This is a 62-year-old male who presented with fall subsequently had cardiac arrest and shock now extubated no longer requiring any pressor support for several days PROBLEMS: 1. Reduced oral intake with nausea, vomiting: I renewed his medications is unclear to me the etiology, I will check a CT scan of the abdomen and pelvis. There does not appear to be suspicious medications he does not improve with tapering of amiodarone or narcotics. I will restart his home medications I've encouraged him to eat and try to stay as active as he can in the bed. 2. leukocytosis: Mild persistent continue to monitor he completed a course of antibiotics related to cellulitis of the lower extremity 3. New onset atrial fibrillation with rapid ventricular response: Appears to be in sinus rhythm cardiology greatly appreciated he is rate controlled with amiodarone as well as carvedilol will consider anticoagulation as his platelets continued to improve 4. Acute renal failure superimposed on chronic kidney disease: Likely secondary to acute tubular necrosis related to shock he does appear to have some more urine output today we are optimistically waiting for him to overdiuresis and hopefully some chorea renal function nephrology's help is greatly appreciated. We'll defer to nephrology when he can have his Anderson catheter removed critical care monitoring 5. Weakness of critical illness: Physical and occupational therapy have been ordered. Patient may likely require extensive rehabilitation. Physical therapy and occupational therapy recommended continued rehabilitative services upon d ischarge when appropriate. 6. Acute hypercarbic hypoxic respiratory failure: Required intubation and mechanical ventilation. Successfully extubated. Currently requiring oxygen via nasal cannula with adequate saturations. Weaning oxygen therapy. Continuing tapering dose of prednisone and will reduce to 10mg starting on 03/03/2018. I suspect the steroids could be discontinued within the next 48-72 hours 7. Elevated troponin with lactic acidosis: Likely secondary to demand ischemia from hypoperfusion that required extensive pressor support. Echocardiogram obtained was a technically very difficult study with poor imaging. Ideally the patient should have cardiac catheterization however while his renal function is in recovery we are holding off on any contrast studies. He is on a statin as pirin is on hold secondary to thrombocytopenia 8. Shock liver: Continues to make daily improvements. Continue statin therapy. 9. Anemia: Peripheral smear obtained which revealed "Anemia with minimal macrocytosis and few circulating nucleated red blood cells, likely multifactorial. No abnormal immature leukocytes identified. Mild thrombocytopenia with essentially normal platelet morphology." H ypoproliferation as indicated by reticulocyte index. Hemoglobin currently stable. No signs of active bleeding. Continue to monitor daily 10. Thrombocytopenia: Possibly related to heparin products versus antibiotics both been discontinued and appear to be arising follow-up heparin-induced antibody 11. 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 Wound bases are clean and non-malodorous. Completed a ten-day course of antibiotic therapy. Blood cultures negative. Dressing changes with OptiLock, Kerlix, and Coban. 12. Chronic indwelling Anderson catheter with abnormal urinalysis and positive urine culture: Likely result of chronic indwelling Anderson catheter. Completed 10-day antibiotic course. 13. Alcohol dependence: Patient has significant alcohol history. No withdrawal symptoms during hospital course. Continue with Folic acid and Multivitamin. 14. Depression: Continue with Fluoxetine. I'll restart his home trazodone 15. Chronic pain: I'll restart his home Lyrica we are holding baclofen 16. Gastroesophageal reflux disease: Continue with PPI he was on 1 at home as well DISPOSITION: Pending improvement in renal function VS, I&O, 24H, Fishbone Vital Signs/I&O Vital Signs Date Time Temp Pulse Resp B/P (MAP) Pulse Ox O2 Delivery O2 Flow Rate FiO2 1/13/19 13:26 73 171/84 03/04/18 08:00 98.3 18 90 Room Air 03/02/18 12:54 97.0 I&O- Last 24 Hours up to 6 AM 03/04/18 06:00 Intake Total 0 ml Output Total 0 ml Balance 0 ml Laboratory Data 24H LABS Laboratory Tests 2 03/04/18 05:10: Immature Granulocyte % (Auto) 0.5, White Blood Count 11.5H, Red Blood Count 2.92L, Hemoglobin 9.4L, Hematocrit 27.8L, Mean Corpuscular Volume 95.2, Mean Corpuscular Hemoglobin 32.2, Mean Corpuscular Hemoglobin Concent 33.8, Red Cell Distribution Width 14.6H, Platelet Count 76L, Neutrophils (%) (Auto) 82.5H, Lymphocytes (%) (Auto) 8.3L, Monocytes (%) (Auto) 7.1H, Eosinophils (%) (Auto) 1.6, Basophils (%) (Auto) 0.0, Neutrophils # (Auto) 9.5H, Lymphocytes # (Auto) 1.0L, Monocytes # (Auto) 0.8, Eosinophils # (Auto) 0.2, Basophils # (Auto) 0.0, Nucleated Red Blood Cells % (auto) 0.0, Immature Platelet Fraction 2.7, Anion Gap 10, Glomerular Filtration Rate 12.6L, Blood Urea Nitrogen 45H, Creatinine 5.01H, Sodium Level 134L, Potassium Level 3.7, Chloride Level 99, Carbon Dioxide Level 25, Calcium Level 6.4L, Aspartate Amino Transf (AST/SGOT) 47H, Alanine Aminotransferase (ALT/SGPT) 151H, Alkaline Phosphatase 118H, Total Bilirubin 1.2H, Total Protein 5.7L, Albumin 1.6L, Magnesium Level 2.1, Albumin/Globulin Ratio 0.39L CBC/BMP Laboratory Tests 03/04/18 05:10 Red Blood Count 2.92 L, Mean Corpuscular Volume 95.2, Mean Corpuscular Hemoglobin 32.2, Mean Corpuscular Hemoglobin Concent 33.8, Red Cell Distribution Width 14.6 H, Neutrophils (%) (Auto) 82.5 H, Lymphocytes (%) (Auto) 8.3 L, Monocytes (%) (Auto) 7.1 H, Eosinophils (%) (Auto) 1.6, Basophils (%) (Auto) 0.0, Neutrophils # (Auto) 9.5 H, Lymphocytes # (Auto) 1.0 L, Monocytes # (Auto) 0.8, Eosinophils # (Auto) 0.2, Basophils # (Auto) 0.0, Calcium Level 6.4 L, Aspartate Amino Transf (AST/SGOT) 47 H, Alanine Aminotransferase (ALT/SGPT) 151 H, Alkaline Phosphatase 118 H, Total Bilirubin 1.2 H, Total Protein 5.7 L, Albumin 1.6 L SOL ALSTON MD Mar 04, 2018 13:41
[2018-03-04] MEDS: PREGABALIN 100 MG CAP (LYRICA) PO SCH ×2 (14:28→20:34)
[2018-03-04] MEDS: ATORVASTATIN 20 MG TAB PO SCH (20:33)
[2018-03-04] MEDS: traZODone 100 MG TAB PO SCH (20:34)
[2018-03-05] VITALS: BP 134/80
[2018-03-05] MEDS: CARVedilol 6.25 MG TAB PO SCH ×4 (00:15→18:16)
[2018-03-05 04:00] VITALS: BP 140/69
[2018-03-05 05:12] LABS: BASO % 0.1 % (0.0-1.0); EOS # 0.2 10^3/uL (0.0-0.50); EOS % 1.7 % (0.0-3.0); HEMATOCRIT 28.2 % (42.0-52.0); HEMOGLOBIN 9.3 g/dl (13.5-17.5); LYMPH # 1.1 10^3/uL (1.5-4.5); LYMPH % 10.7 % (24.0-44.0); MEAN CORPUSCULAR HEMOGLOBIN 31.6 pg (27.0-33.0); MEAN CORPUSCULAR VOLUME 95.9 fl (80.0-96.0); MONO # 0.7 10^3/uL (0.0-0.8); MONO % 7.2 % (0.0-5.0); NEUTROPHILS # 8.1 10^3/uL (1.8-7.7); RED BLOOD COUNT 2.94 10^6/uL (4.30-6.10); WHITE BLOOD COUNT 10.1 10^3/uL (4.0-10.0)
[2018-03-05 05:13] LABS: PLATELET COUNT, AUTOMATED 88 10^3/uL (150-450)
[2018-03-05 05:43] LABS: ALBUMIN 1.7 GM/DL (3.2-5.2); BILIRUBIN,TOTAL 1.1 MG/DL (0.2-1.0); CALCIUM LEVEL 6.3 MG/DL (8.8-10.2); CREATININE FOR GFR 6.18 MG/DL (0.70-1.30); GLOMERULAR FILTRATION RATE 9.9 (>49); MAGNESIUM LEVEL 2.2 MG/DL (1.8-2.4); POTASSIUM SERUM 4.6 MEQ/L (3.5-5.1); TOTAL PROTEIN 6.2 GM/DL (6.4-8.2)
[2018-03-05] MEDS: SLF 3 ML SYR IV SCH ×3 (06:45→22:00)
[2018-03-05 07:45] VITALS: BP 134/78
[2018-03-05] MEDS: predniSONE 10 MG TAB PO SCH (08:41)
[2018-03-05] MEDS: PREGABALIN 100 MG CAP (LYRICA) PO SCH ×2 (08:41→19:54)
[2018-03-05] MEDS: AMIODARONE 200 MG TAB (PACERONE) PO SCH ×2 (08:41→19:54)
[2018-03-05] MEDS: FLUoxetine 20 MG CAP PO SCH (08:41)
[2018-03-05] MEDS: FOLIC ACID 1 MG TAB PO SCH (08:41)
[2018-03-05] MEDS: EUCERIN 120GM CREAM TOP SCH ×2 (08:42→21:00)
[2018-03-05] MEDS: PANTOPRAZOLE 40MG TAB (PROTONIX) PO SCH (08:42)
[2018-03-05] MEDS: MULTIVITAMINS/MINERALS THERAP 1 TAB PO SCH (08:42)
[2018-03-05] MEDS ORDERED: HEPARIN 1,000 UNITS/ML 10ML VIAL (FOR RADIOLOGY& DIALYSIS ONLY) XX ONE (11:00)
--- NOTE | 2018-03-05 11:13 | IPNPDOC ---
Text Note Date of Service The patient was seen on 03/05/18. NOTE Subjective: Mr. nEg was examined at bed. He had no acute complains. He has been able to transition from bed to chair using a life. He denied any pain, difficulty breathing, and chest pain. PHYSICAL EXAMINATION: VITALS See Below GENERAL APPEARANCE: Obese gentleman, resting in bed, ENT:No JVD, throat in moist LUNGS: CTAB, no wheezing or rhonchi HEART: S1 and S2 is present,regular rate and rhythm ABDOMEN: Soft. no tenderness EXTREMITIES: Dressing wrapped around patient's left lower extremity, no signs of infections Labs See Below PROBLEMS: 1. Acute renal failure superimposed on chronic kidney disease. He made 550 cc of urine yesterday. He had an increase in his BUN and creatinine. He will continue to require dialysis. She is schedule for a PermCath placement tomorrow, he currently has a right subclavian cath. 2. Atrial fibrillation. He is currently on amiodarone. He is stable and sinus. Follow with cardiology 3. Thrombocytopenia. continues to improve. 4. Anemia, secondary to kidney disease. Continues to improve. 5. Generalized weakness and deconditioning secondary to body habitus, will require rehab VS,Connie, I+O VS, Connie, I+O Laboratory Tests 03/05/18 04:59 Red Blood Count 2.94 L, Mean Corpuscular Volume 95.9, Mean Corpuscular Hemoglobin 31.6, Mean Corpuscular Hemoglobin Concent 33.0, Red Cell Distribution Width 14.8 H, Neutrophils (%) (Auto) 80.0 H, Lymphocytes (%) (Auto) 10.7 L, Monocytes (%) (Auto) 7.2 H, Eosinophils (%) (Auto) 1.7, Basophils (%) (Auto) 0.1, Neutrophils # (Auto) 8.1 H, Lymphocytes # (Auto) 1.1 L, Monocytes # (Auto) 0.7, Eosinophils # (Auto) 0.2, Basophils # (Auto) 0.0, Calcium Level 6.3 L, Aspartate Amino Transf (AST/SGOT) 53 H, Alanine Aminotransferase (ALT/SGPT) 127 H, Alkaline Phosphatase 110, Total Bilirubin 1.1 H, Total Protein 6.2 L, Albumin 1.7 L Vital Signs Date Time Temp Pulse Resp B/P (MAP) Pulse Ox O2 Delivery O2 Flow Rate FiO2 03/05/18 07:45 98.1 78 18 134/78 (96) 94 Room Air 03/02/18 12:54 97.0 I&O- Last 24 Hours up to 6 AM 03/05/18 05:59 Output Total 550 ml Balance -550 ml GME ATTESTATION GME ATTESTATION My faculty preceptor for this patient encounter was physically present during the encounter and was fully available. All aspects of the patient interview, examination, medical decision making process, and medical care plan development were reviewed and approved by the faculty preceptor. The faculty preceptor is aware and concurs with the plan as stated in the body of this note and will attest to such by his/her cosignature. STEVEN OVERTON DO Mar 05, 2018 11:13
[2018-03-05 11:50] VITALS: BP 122/72
--- NOTE | 2018-03-05 14:37 | IPN ---
DATE OF SERVICE: 03/04/2018 SUBJECTIVE: The patient was seen and examined at the bedside today morning. Patient is afebrile, hemodynamically stable. Denies any active complaints. However, his urine output is improving. I see that since today morning he has made almost 300 mL of urine, however, creatinine continues to rise in between hemodialysis. Patient reports mild shortness of breath. OBJECTIVE: VITAL SIGNS: Temperature is 98.3 degrees Fahrenheit, blood pressure 146/75, pulse is 80, respiratory rate of 18, saturating 90% on room air. INTAKE/OUTPUT: Urine output is not recorded, but I saw about 300 mL of urine in the bag today. Weight in the bed scale is 196.2 kg. PHYSICAL EXAMINATION: GENERAL: The patient is awake, alert, oriented times two, morbidly obese, laying in the bed, nasal cannula. HEAD AND NECK EXAM: Extraocular muscles intact. Pupils equally round and reactive to light. Mucous membranes are moist. Neck is supple. There is no jugular venous distention (JVD). CARDIOVASCULAR: S1, S2, irregular rate. 1+ edema of the bilateral lower extremities. Right subclavian double lumen dialysis catheter was noted. RESPIRATORY: Mildly decreased breath sounds at the bases, otherwise no active rales or rhonchi. ABDOMEN: Abdomen is soft. Morbidly obese. No organomegaly was noted. GENITOURINARY: Patient has an indwelling Anderson catheter about 300 mL of light yellow urine was found in the bag. MUSCULOSKELETAL: Patient has a dressing on the left leg and 1+ edema of the bilateral lower extremities. CENTRAL NERVOUS SYSTEM: No focal deficit. Power is 5/5 in bilateral upper extremities. LAB REVIEW: CBC showed a WBC of 11.5, hemoglobin 9.4, platelets are 76. BMP showed sodium 134, potassium 3.7, chloride 99, bicarbonate 25, BUN 45, creatinine is 5, calcium 6.4, albumin is 1.6. CURRENT INPATIENT MEDICATIONS: The patient's medications were all reviewed by me. IV Protonix has been changed into oral Protonix now. Cepacol Lozenges have been stopped. No other changes in the medications today as compared with yesterday. ASSESSMENT AND PLAN: 1. Acute renal failure. Patient is still oliguric at this point, however, his urine output is improving. He is still dialysis dependent. Next hemodialysis session will be tomorrow morning. Patient still has right subclavian catheter if I do not see improvement of the renal function over the next 24-48 hours then I will get a tunnel dialysis catheter placed. 2. Thrombocytopenia. Platelet count is improving. No heparin with dialysis. 3. Anemia and end-stage renal disease. Hemoglobin is 9.4 which is optimal. I am going to start him on Aranesp with dialysis. 4. Atrial fibrillation. Heart rate is controlled at this point. Continue current dose of amiodarone 200 mg by mouth twice a day. 5. Hypertension. Continue current dose of Coreg 6.25 mg by mouth every hours, hydralazine 10 mg every 8 hours. 6. Morbid obesity and generalized deconditioning. Patient is unable to walk, he is chronically bedridden. He needs more physical therapy. He needs to be out of bed in the chair.
--- NOTE | 2018-03-05 17:46 | IPNPDOC ---
Date Seen The patient was seen on 03/05/18. Progress Note SUBJECTIVE: Patient is a 62-year-old male with fall for which he was evaluated by orthopedic surgery and determined that no intervention was required. Chronic left lower extremity wound and chronic indwelling Anderson catheter with both revealing microbial activity. Patient started on a ntibiotics. Patient was found unresponsive mule spinner of 02/19/2018. He underwent for cardiopulmonary resuscitative events with successful return of spontaneous circulation obtained after each event. Patient was intubated, mechanically ventilated, and placed on three pressors. Elevated troponin without ST elevation possibly secondary to demand ischemia. Poor renal perfusion with anuria requiring hemodialysis. Successfully extubated on 02/24/2018 and transferred to hospitalist service. Patient is evaluated at bedside this morning. He is more interactive during today's evaluation and appears to be in a better mood. His bed has been changed which he is happy about. Has improvement in his nausea and no longer has abdominal pain. He states that he ate breakfast this morning consisting of eggs and milk. Has previously had rehabilitative services in [place] and would be open to being discharged there once medically stable for continued rehabilitative services. OBJECTIVE PHYSICAL EXAMINATION: VITAL SIGNS: Please see below. GENERAL: Morbidly obese male, alert and conversant, improvement in mood, appropriately dressed, in no acute distress. HEENT: Atraumatic, normocephalic, PERRL, EOMI, oral mucosa appears pink and moist, nasal septum appears midline, nares are patent, dentition is poor. CARDIOVASCULAR: Regular heart rate and rhythm, normal S1 and S2, no audible murm ur, rub, click, healing burn to anterior chest from resuscitative pads with scar noted, no active bleeding or drainage. RESPIRATORY: Limited exam secondary to body habitus, clear to auscultation bilat erally, adequate inspiratory and expiratory airway excursion, symmetric airway entry, no audible focal consolidations, no wheeze, rhonchi, crackles. ABDOMINAL: Morbid, soft, nondistended, nontender to palpation, bowel sounds are diminished throughout, no apparent guarding or rebound, difficult to assess organomegaly due to body habitus. EXTREMITIES: Left lower extremity with healing anterior vick ulcer that has granulation tissue present; somewhat wide-based elliptical ulcer with granulation tissue present, minimal biofilm, no slough noted, with bright red blood; strike-through noted on Kerlix and OptiLock; linear ulcer on dorsal aspect of left foot with dry sloughed skin, no drainage or active bleeding; chronic venous stasis changes with hemosiderosis noted on right lower extremity; trace peripheral edema in bilateral lower extremities, no clubbing, no cyanosis. NEUROLOGICAL: No focal neurological deficits. PSYCHOLOGICAL: Mood and affect appear appropriate. LABORATORY DATA, IMAGING STUDIES, MICROBIOLOGY: Please see below. Right complete shoulder x-ray on 02/28/2018 - no acute fracture or dislocation. Abdominal flat plate x-ray on 03/02/2018 - hold normal caliber colon, no evide nce of obstruction, degenerative changes and left hip and lumbar spine. Left lower extremity arterial ultrasound on 03/03/2018 - unable to obtain ANTHONY or doppler measurements due to ulcer; normal triphasic waveforms and normal velocities from other lower extremity arteries; no evidence of arterial s tenosis. Echocardiogram: Left ventricular diastolic dysfunction, dilated right heart chambers with hypokinesis of right ventricular free wall, moderate pulmonary hypertension. DVT prophylaxis ordered?: TEDs, sequentials, knee high compression. ASSESSMENT AND PLAN: This is a 62-year-old male with multiple co- morbidities and a complicated hospital course that required intubation, mechan ical ventilation, and pressor support. Multifactorial etiology. PROBLEMS: 1. Reduced oral intake with nausea, vomiting, and abdominal pain: Significantly improved. Is tolerating oral intake. Continue with a renal diet and Nepro supplementation. 2. Mild leukocytosis: Afebrile without tonic cardial hypertension. Completed a ten-day course of antibiotics on 02/28/2018. Continue to monitor. 3. New onset atrial fibrillation with rapid ventricular response: Patient converted to normal sinus rhythm. Cardiology consulted. Continue Amiodarone 200mg by mouth thrice daily. Continue with Carvedilol 6.25mg by mouth every 6 hours with hold parameters and Lipitor 40mg by mouth nightly. Patient may benefit from cardiac evaluation with angiography; however, patient remains on hemodialysis and has a thrombocytopenia so further invasive cardiac evaluation is on hold for the time being. 4. Acute renal failure superimposed on chronic kidney disease: Nephrology is consulted. Patient continues with hemodialysis secondary to an anuric renal failure secondary to acute tubular necrosis. Hemodialysis removed 2 L yesterday on 03/02/2018. Permacath placement has been ordered. Patient is not receiving heparin secondary to thrombocytopenia. Prior GFR was 49.1. Renal recovery is possible. Will continue to monitor closely. Renal diet. Nepro supplementation ordered. Electrolyte management by hemodialysis and nephrology recommendations. Patient may be discharged to rehabilitative unit when medically cleared and may continue hemodialysis for acute renal failure as an outpatient. 5. Weakness of critical illness: Physical and occupational therapy have been ordered. Patient may be out of bed to chair. Patient showing improvement and occupational therapy would benefit from continued rehabilitation after medical discharge. Patient continues to make improvements with physical therapy. He may wear his left lower extremity brace. Patient is to be out of bed with nursing using a Zahira 1-2 times per day. Patient is to continue physical therapy upon discharge when medically cleared. Patient has expressed interest in continuing rehabilitative services at [place]. Have discussed these findings with patient and family services. 6. Acute hypercarbic hypoxic respiratory failure: Required intubation and mechanical ventilation. Successfully extubated. Patient is currently saturating 94% on room air. This is appropriate. Have discontinued prednisone therapy. 7. Elevated troponin with lactic acidosis: Likely secondary to demand ischemia from hypoperfusion that required extensive pressor support. Echocardiogram obtained as resulted above. Cardiology consulted with recommendations for pos sible further cardiac intervention once patient is stabilized from a medical standpoint, if possible. Discontinued aspirin secondary to worsening thrombocytopenia. No nephrotoxic agents given acute tubular necrosis and currently requiring hemodialysis. Hydralazine has been initiated for systolic blood pressure > 160. Continue Atorvastatin. Continue with beta-geri. 8. Shock liver: Continues to make daily improvements. Continue statin therapy. 9. Possible acute occult fracture of left knee: Orthopedics initially consulted. Recommended vascular surgery consultation. No surgical intervention secondary to patient's significant comorbidities. Nonweightbearing of left lower extremity. Left lower extremity arterial Doppler ultrasound obtained. Limited secondary to ulcer on posterior aspect of left lower leg; however, no arterial stenosis noted in other arteries of the left lower extremity. Patient may use orthopedic brace. 10. Anemia: Stable. Peripheral smear obtained which revealed "Anemia with minimal macrocytosis and few circulating nucleated red blood cells, likely multifactorial. No abnormal immature leukocytes identified. Mild thrombocytopenia with essentially normal platelet morphology." Hypoproliferation as indicated by reticulocyte index. Hemoglobin currently stab le. No signs of active bleeding. 11. Thrombocytopenia: Patient was previously on Heparin for DVT prophylaxis, but developed a precipitous drop in platelet count. Heparin was discontinued. TEDS, sequentials, and knee high compression has been ordered for DVT prophylaxis. No Aspirin due to thrombocytopenia. Heparin was administered during hemodialysis sessions. This has been discontinued. Thrombocytopenia is improving. Likely secondary to acute and complicated hospital course due to cardiac arrest. Heparin-induced antibody pending. 12. 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 Wound bases are clean and non-malodorous. Completed a ten-day course of antibiotic therapy. Blood cultures negative. Dressing changes with OptiLock, Kerlix, and Coban. 13. Chronic indwelling Anderson catheter with abnormal urinalysis and positive urine culture: Likely result of chronic indwelling Anderson catheter. Completed 10-day antibiotic course. 14. Alcohol dependence: Patient has significant alcohol history. No withdrawal symptoms during hospital course. Have started Folic acid and Multivitamin. No need for Benzodiazepine at this time. 15. Depression: Continue with Fluoxetine. DISPOSITION: Clinical improvements daily. Permacath placement. Working towards potential discharge to inpatient rehabilitative unit. VS, I&O, 24H, Fishbone Vital Signs/I&O Vital Signs Date Time Temp Pulse Resp B/P (MAP) Pulse Ox O2 Delivery O2 Flow Rate FiO2 03/05/18 12:39 81 122/72 03/05/18 11:50 97.6 18 94 Room Air 03/02/18 12:54 97.0 I&O- Last 24 Hours up to 6 AM 03/05/18 06:00 Output Total 550 ml Balance -550 ml Laboratory Data 24H LABS Laboratory Tests 2 03/05/18 04:59: Immature Granulocyte % (Auto) 0.3, White Blood Count 10.1H, Red Blood Count 2.94L, Hemoglobin 9.3L, Hematocrit 28.2L, Mean Corpuscular Volume 95.9, Mean Corpuscular Hemoglobin 31.6, Mean Corpuscular Hemoglobin Concent 33.0, Red Cell Distribution Width 14.8H, Platelet Count 88L, Neutrophils (%) (Auto) 80.0H, Lymphocytes (%) (Auto) 10.7L, Monocytes (%) (Auto) 7.2H, Eosinophils (%) (Auto) 1.7, Basophils (%) (Auto) 0.1, Neutrophils # (Auto) 8.1H, Lymphocytes # (Auto) 1.1L, Monocytes # (Auto) 0.7, Eosinophils # (Auto) 0.2, Basophils # (Auto) 0.0, Nucleated Red Blood Cells % (auto) 0.0, Anion Gap 12, Glomerular Filtration Rate 9.9L, Blood Urea Nitrogen 52H, Creatinine 6.18H, Sodium Level 137, Potassium Level 4.6#, Chloride Level 99, Carbon Dioxide Level 26, Calcium Level 6.3L, Aspartate Amino Transf (AST/SGOT) 53H, Alanine Aminotransferase (ALT/SGPT) 127H, Alkaline Phosphatase 110, Total Bilirubin 1.1H, Total Protein 6.2L, Albumin 1.7L, Magnesium Level 2.2, Albumin/Globulin Ratio 0.38L CBC/BMP Laboratory Tests 03/05/18 04:59 Red Blood Count 2.94 L, Mean Corpuscular Volume 95.9, Mean Corpuscular Hem oglobin 31.6, Mean Corpuscular Hemoglobin Concent 33.0, Red Cell Distribution Width 14.8 H, Neutrophils (%) (Auto) 80.0 H, Lymphocytes (%) (Auto) 10.7 L, Monocytes (%) (Auto) 7.2 H, Eosinophils (%) (Auto) 1.7, Basophils (%) (Auto) 0.1, Neutrophils # (Auto) 8.1 H, Lymphocytes # (Auto) 1.1 L, Monocytes # (Auto) 0.7, Eosinophils # (Auto) 0.2, Basophils # (Auto) 0.0, Calcium Level 6.3 L, Aspartate Amino Transf (AST/SGOT) 53 H, Alanine Aminotransferase (ALT/SGPT) 127 H, Alkaline Phosphatase 110, Total Bilirubin 1.1 H, Total Protein 6.2 L, Albumin 1.7 L CARMINE COCHRAN DO Mar 05, 2018 17:46
[2018-03-05] MEDS: NYSTATIN 100,000 UNITS/GM TOPICAL PWD 15 GM TOP SCH ×2 (18:15→19:55)
[2018-03-05] MEDS ORDERED: DARBEPOETIN 100 MCG/0.5 ML *DIALYSIS* SYRINGE (J0882) IV SCH (18:30)
[2018-03-05] MEDS: ATORVASTATIN 20 MG TAB PO SCH (19:53)
[2018-03-05] MEDS: traZODone 100 MG TAB PO SCH (19:54)
[2018-03-05] MEDS: **hydrALAZINE** 10 MG TAB PO SCH (19:58)
[2018-03-05 20:00] VITALS: BP 169/85
[2018-03-06] VITALS (8 sets, daily range): BP systolic 125–171; BP diastolic 62–87
[2018-03-06] MEDS: CARVedilol 6.25 MG TAB PO SCH ×4 (00:42→17:51)
[2018-03-06 05:43] LABS: HEMATOCRIT 26.8 % (42.0-52.0); HEMOGLOBIN 8.6 g/dl (13.5-17.5); MEAN CORPUSCULAR HEMOGLOBIN 31.6 pg (27.0-33.0); MEAN CORPUSCULAR HGB CONC 32.1 g/dl (32.0-36.5); MEAN CORPUSCULAR VOLUME 98.5 fl (80.0-96.0); RED BLOOD COUNT 2.72 10^6/uL (4.30-6.10); WHITE BLOOD COUNT 9.1 10^3/uL (4.0-10.0)
[2018-03-06 05:44] LABS: PLATELET COUNT, AUTOMATED 85 10^3/uL (150-450)
[2018-03-06 06:07] LABS: ALBUMIN 1.7 GM/DL (3.2-5.2); BILIRUBIN,TOTAL 0.9 MG/DL (0.2-1.0); CALCIUM LEVEL 6.4 MG/DL (8.8-10.2); CREATININE FOR GFR 4.89 MG/DL (0.70-1.30); POTASSIUM SERUM 3.5 MEQ/L (3.5-5.1); TOTAL PROTEIN 5.9 GM/DL (6.4-8.2)
[2018-03-06] MEDS: SLF 3 ML SYR IV SCH ×3 (06:39→21:27)
[2018-03-06 08:15] LABS: MAGNESIUM LEVEL 2.1 MG/DL (1.8-2.4)
[2018-03-06] MEDS ORDERED: LIDOCAINE 2% MDV 20 ML VIAL As Ordered ONE (08:17)
[2018-03-06] MEDS ORDERED: HEPARIN 1,000 UNITS/ML 10ML VIAL (FOR RADIOLOGY& DIALYSIS ONLY) As Ordered ONE (08:17)
[2018-03-06] MEDS: PREGABALIN 100 MG CAP (LYRICA) PO SCH ×2 (08:29→21:26)
[2018-03-06] MEDS: FLUoxetine 20 MG CAP PO SCH (08:29)
[2018-03-06] MEDS: PANTOPRAZOLE 40MG TAB (PROTONIX) PO SCH (08:29)
[2018-03-06] MEDS: AMIODARONE 200 MG TAB (PACERONE) PO SCH ×2 (08:29→21:26)
[2018-03-06] MEDS: FOLIC ACID 1 MG TAB PO SCH (08:30)
[2018-03-06] MEDS: MULTIVITAMINS/MINERALS THERAP 1 TAB PO SCH (08:30)
[2018-03-06] MEDS: EUCERIN 120GM CREAM TOP SCH ×2 (10:23→21:26)
[2018-03-06] MEDS: NYSTATIN 100,000 UNITS/GM TOPICAL PWD 15 GM TOP SCH ×2 (10:23→21:26)
[2018-03-06] MEDS: PERCOCET 5MG/325MG TAB PO PRN (13:38)
--- NOTE | 2018-03-06 17:24 | IPNPDOC ---
Date Seen The patient was seen on 03/06/18. Progress Note SUBJECTIVE: Patient is a 62-year-old male with fall for which he was evaluated by orthopedic surgery and determined that no intervention was required. Chronic left lower extremity wound and chronic indwelling Anderson catheter with both revealing microbial activity. Patient started on a ntibiotics. Patient was found unresponsive full time staff interpreter of 02/19/2018. He underwent for cardiopulmonary resuscitative events with successful return of spontaneous circulation obtained after each event. Patient was intubated, mechanically ventilated, and placed on three pressors. Elevated troponin without ST elevation possibly secondary to demand ischemia. Poor renal perfusion with anuria requiring hemodialysis. Successfully extubated on 02/24/2018 and transferred to hospitalist service. Patient is evaluated at bedside this evening. He is sitting up in bed about to eat dinner. Unfortunately, he did not get his Perm-A-Cath placed today due to an unexpected emergency noted related to this patient. He states that he feels better still. Continues to experience discomfort related to sacral decubitus ulcers. Continues to make improvements with oral intake. No nausea, vomiting, or abdominal pain. OBJECTIVE PHYSICAL EXAMINATION: VITAL SIGNS: Please see below. GENERAL: Morbidly obese male, alert and conversant, improvement in mood, appropriately dressed, in no acute distress. HEENT: Atraumatic, normocephalic, PERRL, EOMI, oral mucosa appears pink and moist, nasal septum appears midline, nares are patent, dentition is poor. CARDIOVASCULAR: Regular heart rate and rhythm, normal S1 and S2, no audible murmur, rub, click, significantly improved burn to anterior chest from resuscitative pads with scar noted, no active bleeding or drainage. RESPIRATORY: Limited exam secondary to body habitus, clear to auscultation bilaterally, adequate inspiratory and expiratory airway excursion, symmetric airway entry, no audible focal consolidations, no wheeze, rhonchi, crackles. ABDOMINAL: Morbid, soft, nondistended, nontender to palpation, bowel sounds are diminished throughout, no apparent guarding or rebound, difficult to assess organomegaly due to body habitus. EXTREMITIES: Left lower extremity with healing anterior vick ulcer that has granulation tissue present; somewhat wide-based elliptical ulcer with granulation tissue present, minimal biofilm, no slough noted, with bright red blood; linear ulcer on dorsal aspect of left foot with dry sloughed skin, no drainage or active bleeding; chronic venous stasis changes with hemosiderosis noted on right lower extremity; +1 peripheral edema noted in the left lower extremity extending up into the thigh; no clubbing, no cyanosis. NEUROLOGICAL: No focal neurological deficits. PSYCHOLOGICAL: Mood and affect appear appropriate. LABORATORY DATA, IMAGING STUDIES, MICROBIOLOGY: Please see below. Right complete shoulder x-ray on 02/28/2018 - no acute fracture or dislocation. Abdominal flat plate x-ray on 03/02/2018 - hold normal caliber colon, no evidence of obstruction, degenerative changes and left hip and lumbar spine. Left lower extremity arterial ultrasound on 03/03/2018 - unable to obtain ANTHONY or doppler measurements due to ulcer; normal triphasic waveforms and normal velocities from other lower extremity arteries; no evidence of arterial stenosis. Echocardiogram: Left ventricular diastolic dysfunction, dilated right heart chambers with hypokinesis of right ventricular free wall, moderate pulmonary hypertension. DVT prophylaxis ordered?: TEDs, sequentials, knee high compression. ASSESSMENT AND PLAN: This is a 62-year-old male with multiple co- morbidities and a complicated hospital course that required intubation, mechanical ventilation, and pressor support. Multifactorial etiology. PROBLEMS: 1. Reduced oral intake with nausea, vomiting, and abdominal pain: Significantly improved. Is tolerating oral intake. Continue with a renal diet and Nepro supplementation. 2. Mild leukocytosis: Resolved. Afebrile without tachycardia or hypotension. Completed a ten-day course of antibiotics on 02/28/2018. Continue to monitor. 3. New onset atrial fibrillation with rapid ventricular response: Patient converted to normal sinus rhythm. Cardiology consulted. Continue Amiodarone 200mg by mouth thrice daily. Continue with Carvedilol 6.25mg by mouth every 6 hours with hold parameters and Lipitor 40mg by mouth nightly. Patient may benefit from cardiac evaluation with angiography; however, patient remains on hemodialysis and has a thrombocytopenia so further invasive cardiac evaluation is on hold for the time being. 4. Acute renal failure superimposed on chronic kidney disease: Nephrology is consulted. Patient continues with hemodialysis secondary to an anuric renal fail ure secondary to acute tubular necrosis. Hemodialysis removed 2.2 L yesterday on 03/05/2018. Perm-A-Cath placement has been ordered with possible placement tomorrow. Patient is not receiving heparin secondary to thrombocytopenia. Prior GFR was 49.1. Renal recovery is possible. Will continue to monitor closely. Renal diet. Nepro supplementation ordered. Electrolyte management by hemodialysis and nephrology recommendations. Patient may be discharged to rehabilitative unit when medically cleared and may continue hemodialysis for acute renal failure as an outpatient. 5. Critical illness myopathy: Physical and occupational therapy have been ordered. Patient may be out of bed to chair. Patient showing improvement and occupational therapy would benefit from continued rehabilitation after medical discharge. Patient continues to make improvements with physical therapy. He may wear his left lower extremity brace. Patient is to be out of bed with nursing using a Zahira 1-2 times per day. Patient is to continue physical therapy upon discharge when medically cleared. Patient has expressed interest in continuing rehabilitative services at [facility]. Have discussed these findings with patient and family services. 6. Acute hypercarbic hypoxic respiratory failure: Required intubation and mechanical ventilation. Successfully extubated. Patient is currently saturating 94% on room air. This is appropriate. Have discontinued prednisone therapy. 7. Elevated troponin with lactic acidosis: Likely secondary to demand ischemia from hypoperfusion that required extensive pressor support. Echocardiogram obtained as resulted above. Cardiology consulted with recommendations for possible further cardiac intervention once patient is stabilized from a medical standpoint, if possible. Discontinued aspirin secondary to worsening thrombocytopenia. No nephrotoxic agents given acute tubular necrosis and currently requiring hemodialysis. Hydralazine has been initiated for systolic blood pressure > 160. Continue Atorvastatin. Continue with beta-geri. 8. Shock liver: Continues to make daily improvements. Continue statin therapy. 9. Possible acute occult fracture of left knee: Orthopedics initially consulted. Recommended vascular surgery consultation. No surgical intervention secondary to patient's significant comorbidities. Patient may be weightbearing as tolerated, per updated orthopedic recommendations. Left lower extremity arterial Doppler ultrasound obtained. Limited secondary to ulcer on posterior aspect of left lower leg; however, no arterial stenosis noted in other arteries of the left lower extremity. Patient may use orthopedic brace. 10. Anemia: Stable. Peripheral smear obtained which revealed "Anemia with minimal macrocytosis and few circulating nucleated red blood cells, likely multifactorial. No abnormal immature leukocytes identified. Mild thrombocytopenia with essentially normal platelet morphology." Hypoproliferation as indicated by reticulocyte index. Hemoglobin currently stable. No signs of active bleeding. 11. Heparin-induced thrombocytopenia: Patient was previously on Heparin for DVT prophylaxis, but developed a precipitous drop in platelet count. Heparin was discontinued. TEDS, sequentials, and knee high compression has been ordered for DVT prophylaxis. No Aspirin due to thrombocytopenia. Heparin was administered during hemodialysis sessions. This has been discontinued. Thrombocytopenia is improving. Likely secondary to acute and complicated hospital course due to cardiac arrest. Heparin-induced antibody positive. Serotonin release assay pending. 12. 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 Wound bases are clean and non-malodorous. Completed a ten-day course of antibiotic therapy. Blood cultures negative. Dressing changes with OptiLock, Kerlix, and Coban. 13. CAUTI: Likely result of chronic indwelling Anderson catheter. Completed 10- day antibiotic course. 14. Alcohol dependence: Patient has significant alcohol history. No withdrawal symptoms during hospital course. Have started Folic acid and Multivitamin. No need for Benzodiazepine at this time. 15. Depression: Continue with Fluoxetine. DISPOSITION: Clinical improvements daily. Perm-A-Cath placement tomorrow. Working towards potential discharge to inpatient rehabilitative unit. VS, I&O, 24H, Fishbone Vital Signs/I&O Vital Signs Date Time Temp Pulse Resp B/P (MAP) Pulse Ox O2 Delivery O2 Flow Rate FiO2 03/06/18 16:00 97.6 70 18 125/74 (91) 93 Nasal Cannula 03/02/18 12:54 97.0 I&O- Last 24 Hours up to 6 AM 03/06/18 06:00 Intake Total 660 ml Output Total 2575 ml Balance -1915 ml Laboratory Data 24H LABS Laboratory Tests 2 03/06/18 05:03: Nucleated Red Blood Cells % (auto) 0.0, Immature Platelet Fraction 2.3, Anion Gap 11, Glomerular Filtration Rate 13.0L, Blood Urea Nitrogen 39H, Creatinine 4.89H, Sodium Level 139, Potassium Level 3.5#, Chloride Level 101, Carbon Dioxide Level 27, Calcium Level 6.4L, Aspartate Amino Transf (AST/SGOT) 56H, Alanine Aminotransferase (ALT/SGPT) 115H, Alkaline Phosphatase 161H, Total Bilirubin 0.9, Total Protein 5.9L, Albumin 1.7L, Magnesium Level 2.1, Albumin/Globulin Ratio 0.40L 03/06/18 08:38: CBC/BMP Laboratory Tests 03/06/18 05:03 Red Blood Count 2.72 L, Mean Corpuscular Volume 98.5 H, Mean Corpuscular Hemoglobin 31.6, Mean Corpuscular Hemoglobin Concent 32.1, Red Cell Distribution Width 14.6 H, Calcium Level 6.4 L, Aspartate Amino Transf (AST/SGOT) 56 H, Alanine Aminotransferase (ALT/SGPT) 115 H, Alkaline Phosphatase 161 H, Total Bilirubin 0.9, Total Protein 5.9 L, Albumin 1.7 L GME ATTESTATION GME ATTESTATION My faculty preceptor for this patient encounter was physically present during the encounter and was fully available. All aspects of the patient interview, examination, medical decision making process, and medical care plan development were reviewed and approved by the faculty preceptor. The faculty preceptor is aware and concurs with the plan as stated in the body of this note and will attest to such by his/her cosignature. ATTENDING NOTE I, Isacc Trevino, have both independently examined this patient as well as reviewed the documentation. I have discussed in detail with the resident the findings and plan of treatment as documented in the residents documentation. I will continue to follow the patient and offer further guidance to the patients care as necessary during this hospital stay. CARMINE COCHRAN DO Mar 06, 2018 17:24 ISACC TREVINO MD Apr 04, 2018 18:54
--- NOTE | 2018-03-06 19:10 | IPNPDOC ---
Text Note Date of Service The patient was seen on 03/06/18. NOTE Subjective: Patient was examined at bedside. He had no acute complaints. He is scheduled for permacath placement today. He underwent dialysis yesterday and 2200 mL of fluid was removed. He was in good spirits today PHYSICAL EXAMINATION: VITALS See Below GENERAL APPEARANCE: Obese gentleman, resting in bed, no apparent distress, was pleasant ENT:No JVD, neck is supple, no thyromegaly LUNGS: CTAB, no wheezing or rhonchi, no use of accessory muscles to breathe HEART: S1 and S2 is present,regular rate and rhythm ABDOMEN: Soft. no tenderness, bowel sounds present EXTREMITIES: Dressing wrapped around patient's left lower extremity, no signs of infections Labs See Below PROBLEMS: 1. Acute renal failure superimposed on chronic kidney disease. He had dialysis yesterday, with 2200 ml of fluid removed. His BUN and Creatinine improved, but still remains elevated. He will continue to need dialysis. He is scheduled for a permacath placement today for continued dialysis. 2. Atrial fibrillation. He is currently on amiodarone. He is stable and sinus. Follow with cardiology 3. Thrombocytopenia. continues to improve. 4. Anemia, secondary to kidney disease. Continues to improve. Started Aranesp with dialysis 5. Generalized weakness and deconditioning secondary to body habitus, will require rehab VS,Connie, I+O VS, Connie, I+O Laboratory Tests 03/06/18 05:03 Red Blood Count 2.72 L, Mean Corpuscular Volume 98.5 H, Mean Corpuscular Hemoglobin 31.6, Mean Corpuscular Hemoglobin Concent 32.1, Red Cell Distribution Width 14.6 H, Calcium Level 6.4 L, Aspartate Amino Transf (AST/SGOT) 56 H, Alanine Aminotransferase (ALT/SGPT) 115 H, Alkaline Phosphatase 161 H, Total Bilirubin 0.9, Total Protein 5.9 L, Albumin 1.7 L Vital Signs Date Time Temp Pulse Resp B/P (MAP) Pulse Ox O2 Delivery O2 Flow Rate FiO2 03/06/18 06:00 80 148/78 03/06/18 04:00 97.6 16 92 Room Air 03/02/18 12:54 97.0 I&O- Last 24 Hours up to 6 AM 03/06/18 05:59 Intake Total 660 ml Output Total 2525 ml Balance -1865 ml GME ATTESTATION GME ATTESTATION My faculty preceptor for this patient encounter was physically present during the encounter and was fully available. All aspects of the patient interview, examination, medical decision making process, and medical care plan development were reviewed and approved by the faculty preceptor. The faculty preceptor is aware and concurs with the plan as stated in the body of this note and will attest to such by his/her cosignature. STEVEN OVERTON DO Mar 06, 2018 07:38
[2018-03-06] MEDS: ATORVASTATIN 20 MG TAB PO SCH (21:26)
[2018-03-06] MEDS: traZODone 100 MG TAB PO SCH (21:26)
[2018-03-07] VITALS: BP_SYST 113; BP_SYST 156; BP_DIAS 59; BP_DIAS 82
[2018-03-07] MEDS: CARVedilol 6.25 MG TAB PO SCH ×3 (00:24→18:15)
[2018-03-07 01:26] VITALS: BP 142/67
[2018-03-07 04:00] VITALS: BP 132/68
[2018-03-07] MEDS: SLF 3 ML SYR IV PRN ×2 (05:04→20:52)
[2018-03-07] MEDS: SLF 3 ML SYR IV SCH ×3 (05:04→20:52)
[2018-03-07 06:13] LABS: HEMATOCRIT 28.4 % (42.0-52.0); MEAN CORPUSCULAR HEMOGLOBIN 31.8 pg (27.0-33.0); MEAN CORPUSCULAR HGB CONC 31.7 g/dl (32.0-36.5); MEAN CORPUSCULAR VOLUME 100.4 fl (80.0-96.0); RED BLOOD COUNT 2.83 10^6/uL (4.30-6.10); WHITE BLOOD COUNT 7.9 10^3/uL (4.0-10.0)
[2018-03-07 06:15] LABS: PLATELET COUNT, AUTOMATED 80 10^3/uL (150-450)
[2018-03-07 06:26] LABS: ALBUMIN 1.6 GM/DL (3.2-5.2); BILIRUBIN,TOTAL 0.9 MG/DL (0.2-1.0); CALCIUM LEVEL 6.4 MG/DL (8.8-10.2); CREATININE FOR GFR 5.76 MG/DL (0.70-1.30); GLOMERULAR FILTRATION RATE 10.7 (>49); MAGNESIUM LEVEL 2.1 MG/DL (1.8-2.4); POTASSIUM SERUM 3.3 MEQ/L (3.5-5.1)
[2018-03-07] MEDS ORDERED: POTASSIUM CHLORIDE 10 MEQ SR TABLET PO ONE (07:30)
[2018-03-07 07:47] VITALS: BP 127/73
[2018-03-07] MEDS: AMIODARONE 200 MG TAB (PACERONE) PO SCH ×2 (08:34→20:52)
[2018-03-07] MEDS: FLUoxetine 20 MG CAP PO SCH (08:35)
[2018-03-07] MEDS: MULTIVITAMINS/MINERALS THERAP 1 TAB PO SCH (08:35)
[2018-03-07] MEDS: PREGABALIN 100 MG CAP (LYRICA) PO SCH ×2 (08:35→20:51)
[2018-03-07] MEDS: FOLIC ACID 1 MG TAB PO SCH (08:35)
[2018-03-07] MEDS: NYSTATIN 100,000 UNITS/GM TOPICAL PWD 15 GM TOP SCH ×2 (08:36→20:52)
[2018-03-07] MEDS: PANTOPRAZOLE 40MG TAB (PROTONIX) PO SCH (08:36)
[2018-03-07] MEDS: EUCERIN 120GM CREAM TOP SCH ×2 (08:36→20:51)
[2018-03-07] MEDS ORDERED: HEPARIN 1,000 UNITS/ML 10ML VIAL (FOR RADIOLOGY& DIALYSIS ONLY) As Ordered ONE (11:38)
[2018-03-07] MEDS ORDERED: LIDOCAINE 2% MDV 20 ML VIAL As Ordered ONE (11:39)
--- NOTE | 2018-03-07 13:29 | IPNPDOC ---
Date Seen The patient was seen on 03/07/18. Progress Note SUBJECTIVE: Patient is a 62-year-old male with fall for which he was evaluated by orthopedic surgery and determined that no intervention was required. Chronic left lower extremity wound and chronic indwelling Anderson catheter with both revealing microbial activity. Patient started on a ntibiotics. 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 He underwent for cardiopulmonary resuscitative events with successful return of spontaneous circulation obtained after each event. Patient was intubated, mechanically ventilated, and placed on three pressors. Elevated troponin without ST elevation possibly secondary to demand ischemia. Poor renal perfusion with anuria requiring hemodialysis. Successfully extubated on 02/24/2018 and transferred to hospitalist service. Patient is evaluated at bedside this evening. He is working with physical therapy and occupational therapy during my evaluation. He continues to make strides in his recovery. He is tolerating meals. Making improvements with physical and occupational therapy. Will be going for Perm-A-Cath placement today. OBJECTIVE PHYSICAL EXAMINATION: VITAL SIGNS: Please see below. GENERAL: Morbidly obese male, alert and conversant, improvement in mood, appropriately dressed, in no acute distress. HEENT: Atraumatic, normocephalic, PERRL, EOMI, oral mucosa appears pink and moist, nasal septum appears midline, nares are patent, dentition is poor. CARDIOVASCULAR: Regular heart rate and rhythm, normal S1 and S2, no audible murmur, rub, click, significantly improved burn to anterior chest from resuscitative pads with scar noted, no active bleeding or drainage. RESPIRATORY: Limited exam secondary to body habitus, clear to auscultation bilaterally, adequate inspiratory and expiratory airway excursion, symmetric airway entry, no audible focal consolidations, no wheeze, rhonchi, crackles. ABDOMINAL: Morbid, soft, nondistended, nontender to palpation, bowel sounds are diminished throughout, no apparent guarding or rebound, difficult to assess organomegaly due to body habitus. EXTREMITIES: Left lower extremity with healing anterior vick ulcer that has granulation tissue present; somewhat wide-based elliptical ulcer with granulation tissue present, minimal biofilm, no slough noted, with bright red blood; linear ulcer on dorsal aspect of left foot with dry sloughed skin, no drainage or active bleeding; chronic venous stasis changes with hemosiderosis noted on right lower extremity; +2 peripheral edema noted in the left lower extremity extending up into the thigh; no clubbing, no cyanosis. NEUROLOGICAL: No focal neurological deficits. PSYCHOLOGICAL: Mood and affect appear appropriate. LABORATORY DATA, IMAGING STUDIES, MICROBIOLOGY: Please see below. Right complete shoulder x-ray on 02/28/2018 - no acute fracture or dislocation. Abdominal flat plate x-ray on 03/02/2018 - hold normal caliber colon, no evidence of obstruction, degenerative changes and left hip and lumbar spine. Left lower extremity arterial ultrasound on 03/03/2018 - unable to obtain ANTHONY or doppler measurements due to ulcer; normal triphasic waveforms and normal velocities from other lower extremity arteries; no evidence of arterial stenosis. Echocardiogram: Left ventricular diastolic dysfunction, dilated right heart chambers with hypokinesis of right ventricular free wall, moderate pulmonary hypertension. DVT prophylaxis ordered?: TEDs, sequentials, knee high compression. ASSESSMENT AND PLAN: This is a 62-year-old male with multiple co- morbidities and a complicated hospital course that required intubation, mechanical ventilation, and pressor support. Multifactorial etiology. PROBLEMS: 1. Critical illness myopathy: Physical and occupational therapy have been ordered. Patient may be out of bed to chair. Patient showing improvement and occupational therapy would benefit from continued rehabilitation after medical discharge. Patient continues to make improvements with physical therapy. He may wear his left lower extremity brace. Patient is to be out of bed with nursing us ing a [place] 1-2 times per day. Patient is to continue physical therapy upon discharge when medically cleared. Patient has expressed interest in continuing rehabilitative services in [place]. Patient will require rehabilitative services that have the capacity to allow for hemodialysis appointments. 2. Acute renal failure superimposed on chronic kidney disease: Nephrology is consulted. Patient continues with hemodialysis secondary to an oliguric renal failure secondary to acute tubular necrosis. Hemodialysis removed 2.2 L on 03/05/2018. Perm-A-Cath placement has been ordered with placement today. Patient is not receiving heparin secondary to thrombocytopenia. Prior GFR was 49.1. Renal recovery is possible. Will continue to monitor closely. Renal diet. Nepro supplementation ordered. Electrolyte management by hemodialysis and nephrology recommendations. Patient may be discharged to rehabilitative unit when medically cleared and may continue hemodialysis for acute renal failure as an outpatient. 3. Electrolyte derangements: Supplemented. 4. Reduced oral intake with nausea, vomiting, and abdominal pain: Resolved. 5. Acute hypercarbic hypoxic respiratory failure: Required intubation and mechanical ventilation. Successfully extubated. Patient is currently saturating 93% on room air. This is appropriate. Have discontinued prednisone therapy. 6. New onset atrial fibrillation with rapid ventricular response: Patient converted to normal sinus rhythm. Cardiology consulted. Continue Amiodarone 200mg by mouth thrice daily. Continue with Carvedilol 6.25mg by mouth every 6 hours with hold parameters and Lipitor 40mg by mouth nightly. Patient may benefit from cardiac evaluation with angiography; however, patient remains on hemodialysis and has a thrombocytopenia so further invasive cardiac evaluation is on hold for the time being. 7. Elevated troponin with lactic acidosis: Likely secondary to demand ischemia from hypoperfusion that required extensive pressor support. Echocardiogram obtained as resulted above. Cardiology consulted with recommendations for possible further cardiac intervention once patient is stabilized from a medical standpoint, if possible. Restarted Aspirin. Platelets > 50. No nephrotoxic agents given acute tubular necrosis and currently requiring hemodialysis. Hydralazine has been initiated for systolic blood pressure > 160. Continue At orvastatin. Continue with beta-geri. 8. Shock liver: Continues to make daily improvements. Continue statin therapy. 9. Possible acute occult fracture of left knee: Orthopedics initially consulted. Recommended vascular surgery consultation. No surgical intervention secondary to patient's significant comorbidities. Patient may be weightbearing as tolerated, per updated orthopedic recommendations. Left lower extremity arterial Doppler ultrasound obtained. Limited secondary to ulcer on posterior aspect of left lower leg; however, no arterial stenosis noted in other arteries of the left lower extremity. Patient may use orthopedic brace. 10. Anemia: Stable. Peripheral smear obtained which revealed "Anemia with minimal macrocytosis and few circulating nucleated red blood cells, likely mu ltifactorial. No abnormal immature leukocytes identified. Mild thrombocytopenia with essentially normal platelet morphology." Hypoproliferation as indicated by reticulocyte index. Hemoglobin currently stable. No signs of active bleeding. 11. Heparin-induced thrombocytopenia: Patient was previously on Heparin for DVT prophylaxis, but developed a precipitous drop in platelet count. Heparin was discontinued. TEDS, sequentials, and knee high compression has been ordered for DVT prophylaxis. Aspirin has been restarted. Heparin was administered during hemodialysis sessions. This has been discontinued. Thrombocytopenia is improving. Likely secondary to acute and complicated hospital course due to cardiac arrest. Heparin-induced antibody positive. Serotonin release assay pending. 12. 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 Wound bases are clean and non-malodorous. Completed a ten-day course of antibiotic therapy. Blood cultures negative. Dressing changes with OptiLock, Kerlix, and Coban. 13. CAUTI: Likely result of chronic indwelling Anderson catheter. Completed 10- day antibiotic course. 14. Alcohol dependence: Patient has significant alcohol history. No withdrawal symptoms during hospital course. Have started Folic acid and Multivitamin. No need for Benzodiazepine at this time. 15. Depression: Continue with Fluoxetine. DISPOSITION: Perm-A-Cath placement. Continued PT/OT. Working towards potential discharge to inpatient rehabilitative unit. VS, I&O, 24H, Fishbone Vital Signs/I&O Vital Signs Date Time Temp Pulse Resp B/P (MAP) Pulse Ox O2 Delivery O2 Flow Rate FiO2 03/07/18 07:47 97.4 86 18 127/73 (91) 93 Room Air 03/02/18 12:54 97.0 I&O- Last 24 Hours up to 6 AM 03/07/18 06:00 Intake Total 700 ml Output Total 225 ml Balance 475 ml Laboratory Data 24H LABS Laboratory Tests 2 03/07/18 05:32: Nucleated Red Blood Cells % (auto) 0.0, Immature Platelet Fraction 1.8, Anion Gap 9, Glomerular Filtration Rate 10.7L, Blood Urea Nitrogen 44H, Creatinine 5.76H, Sodium Level 136, Potassium Level 3.3L, Chloride Level 100, Carbon Dioxide Level 27, Calcium Level 6.4L, Aspartate Amino Transf (AST/SGOT) 44H, Alanine Aminotransferase (ALT/SGPT) 103H, Alkaline Phosphatase 154H, Total Bilirubin 0.9, Total Protein 6.0L, Albumin 1.6L, Magnesium Level 2.1, Albumin/Globulin Ratio 0.36L CBC/BMP Laboratory Tests 03/07/18 05:32 Red Blood Count 2.83 L, Mean Corpuscular Volume 100.4 H, Mean Corpuscular Hemoglobin 31.8, Mean Corpuscular Hemoglobin Concent 31.7 L, Red Cell Distribution Width 14.4, Calcium Level 6.4 L, Aspartate Amino Transf (AST/SGOT) 44 H, Alanine Aminotransferase (ALT/SGPT) 103 H, Alkaline Phosphatase 154 H, Total Bilirubin 0.9, Total Protein 6.0 L, Albumin 1.6 L GME ATTESTATION GME ATTESTATION My faculty preceptor for this patient encounter was physically present during the encounter and was fully available. All aspects of the patient interview, examination, medical decision making process, and medical care plan development were reviewed and approved by the faculty preceptor. The faculty preceptor is aware and concurs with the plan as stated in the body of this note and will attest to such by his/her cosignature. ATTENDING NOTE I, Isacc Trevino, have both independently examined this patient as well as reviewed the documentation. I have discussed in detail with the resident the findings and plan of treatment as documented in the residents documentation. I will continue to follow the patient and offer further guidance to the patients care as necessary during this hospital stay. CARMINE COCHRAN DO Mar 07, 2018 13:07 ISACC TREVINO MD Apr 04, 2018 18:56
[2018-03-07] MEDS ORDERED: HEPARIN 1,000 UNITS/ML 10ML VIAL (FOR RADIOLOGY& DIALYSIS ONLY) XX ONE (13:30)
[2018-03-07] MEDS ORDERED: LIDOCAINE 1% SDV 5 ML VIAL SQ ONE (13:30)
--- NOTE | 2018-03-07 17:25 | IPNPDOC ---
Text Note Date of Service The patient was seen on 03/07/18. NOTE Subjective: Patient was examined at that site today. He had no acute complaints. His permacath was scheduled for yesterday, had to reschedule for this morning, due to scheduling error. Patient is in good spirits this morning. He had no acute complaints. He was afebrile night. He continues to be oliguric with only 200 mL of urine produced throughout yesterday. He continues to need dialysis. Which she is scheduled for this afternoon after the placement of his permacath Objective PHYSICAL EXAMINATION: VITALS See Below GENERAL APPEARANCE: Pleasant, obese gentleman, in no apparent distress, resting comfortably in hospital bed ENT: No JVD, couple, no thyromegaly, no cervical lymphadenopathy, supple neck LUNGS: CTAB HEART: S1 and S2 is present,regular rate and rhythm ABDOMEN: Soft. no tenderness, bowel sounds present Labs See Below PROBLEMS: 1. Acute renal failure superimposed on chronic kidney disease. Continues to be dialysis every Monday, Monday and Monday. He scheduled for dialysis today after the placement of his permacath. 2. Atrial fibrillation. Stable, in sinus rhythm with only amiodarone therapy. We'll continue to follow. 3. Thrombocytopenia. continues to improve. Hold heparin 4. Anemia, secondary to kidney disease. Continues with Aranesp with dialysis. Hemoglobin and hemo-crit continues to improve 5. Generalized weakness and deconditioning secondary to body habitus, will require rehab VS,Connie, I+O VS, Connie, I+O Laboratory Tests 03/07/18 05:32 Red Blood Count 2.83 L, Mean Corpuscular Volume 100.4 H, Mean Corpuscular Hemoglobin 31.8, Mean Corpuscular Hemoglobin Concent 31.7 L, Red Cell Distribution Width 14.4, Calcium Level 6.4 L, Aspartate Amino Transf (AST/SGOT) 44 H, Alanine Aminotransferase (ALT/SGPT) 103 H, Alkaline Phosphatase 154 H, Total Bilirubin 0.9, Total Protein 6.0 L, Albumin 1.6 L Vital Signs Date Time Temp Pulse Resp B/P (MAP) Pulse Ox O2 Delivery O2 Flow Rate FiO2 03/07/18 07:47 97.4 86 18 127/73 (91) 93 Room Air 03/02/18 12:54 97.0 I&O- Last 24 Hours up to 6 AM 03/07/18 05:59 Intake Total 700 ml Output Total 275 ml Balance 425 ml GME ATTESTATION GME ATTESTATION My faculty preceptor for this patient encounter was physically present during the encounter and was fully available. All aspects of the patient interview, examination, medical decision making process, and medical care plan development were reviewed and approved by the faculty preceptor. The faculty preceptor is aware and concurs with the plan as stated in the body of this note and will attest to such by his/her cosignature. STEVEN OVERTON DO Mar 07, 2018 17:25
[2018-03-07] MEDS: ASPIRIN 81 MG CHEW TABLET PO SCH (18:15)
[2018-03-07 18:38] VITALS: BP 132/84
[2018-03-07 20:00] VITALS: BP 128/78
[2018-03-07] MEDS: traZODone 100 MG TAB PO SCH (20:51)
[2018-03-07] MEDS: ATORVASTATIN 20 MG TAB PO SCH (20:51)
[2018-03-07] MEDS: PERCOCET 5MG/325MG TAB PO PRN (20:55)
[2018-03-08] VITALS: BP 133/80
[2018-03-08] MEDS: CARVedilol 6.25 MG TAB PO SCH ×4 (00:32→17:51)
[2018-03-08 04:00] VITALS: BP 128/82
[2018-03-08] MEDS: SLF 3 ML SYR IV SCH ×3 (05:22→21:08)
[2018-03-08 06:09] LABS: HEMATOCRIT 28.6 % (42.0-52.0); MEAN CORPUSCULAR HEMOGLOBIN 31.5 pg (27.0-33.0); MEAN CORPUSCULAR HGB CONC 31.5 g/dl (32.0-36.5); RED BLOOD COUNT 2.86 10^6/uL (4.30-6.10); WHITE BLOOD COUNT 7.4 10^3/uL (4.0-10.0)
[2018-03-08 06:10] LABS: PLATELET COUNT, AUTOMATED 84 10^3/uL (150-450)
[2018-03-08 06:32] LABS: ALBUMIN 1.7 GM/DL (3.2-5.2); CALCIUM LEVEL 7.3 MG/DL (8.8-10.2); CREATININE FOR GFR 3.99 MG/DL (0.70-1.30); GLOMERULAR FILTRATION RATE 16.4 (>49); MAGNESIUM LEVEL 1.8 MG/DL (1.8-2.4); POTASSIUM SERUM 4.2 MEQ/L (3.5-5.1); TOTAL PROTEIN 6.4 GM/DL (6.4-8.2)
[2018-03-08 08:00] VITALS: BP 116/55
[2018-03-08] MEDS: MULTIVITAMINS/MINERALS THERAP 1 TAB PO SCH (09:12)
[2018-03-08] MEDS: FOLIC ACID 1 MG TAB PO SCH (09:12)
[2018-03-08] MEDS: PREGABALIN 100 MG CAP (LYRICA) PO SCH ×2 (09:12→20:49)
[2018-03-08] MEDS: EUCERIN 120GM CREAM TOP SCH ×2 (09:12→20:50)
[2018-03-08] MEDS: ASPIRIN 81 MG CHEW TABLET PO SCH (09:12)
[2018-03-08] MEDS: PANTOPRAZOLE 40MG TAB (PROTONIX) PO SCH (09:13)
[2018-03-08] MEDS: NYSTATIN 100,000 UNITS/GM TOPICAL PWD 15 GM TOP SCH ×2 (09:13→20:53)
[2018-03-08] MEDS: FLUoxetine 20 MG CAP PO SCH (09:13)
[2018-03-08] MEDS: AMIODARONE 200 MG TAB (PACERONE) PO SCH ×2 (09:13→20:49)
--- NOTE | 2018-03-08 10:35 | IPNPDOC ---
Date Seen The patient was seen on 03/08/18. Progress Note SUBJECTIVE: Patient is a 62-year-old male with fall for which he was evaluated by orthopedic surgery and determined that no intervention was required. Chronic left lower extremity wound and chronic indwelling Anderson catheter with both revealing microbial activity. Patient started on a ntibiotics. 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 He underwent for cardiopulmonary resuscitative events with successful return of spontaneous circulation obtained after each event. Patient was intubated, mechanically ventilated, and placed on three pressors. Elevated troponin without ST elevation possibly secondary to demand ischemia. Poor renal perfusion with anuria requiring hemodialysis. Successfully extubated on 02/24/2018 and transferred to hospitalist service. Patient is evaluated at bedside this morning. He is in the process of working with physical and occupational therapy. Patient states that he is "good." He is maintaining adequate oral intake. He is not nauseous, vomiting, has abdominal pain, chest pain. He states that he can hear his "belly grumbling." He went for Perm-A-Cath placement yesterday. Tolerated the procedure well. OBJECTIVE PHYSICAL EXAMINATION: VITAL SIGNS: Please see below. GENERAL: Morbidly obese male, alert and conversant, improvement in mood, appropriately dressed, in no acute distress. HEENT: Atraumatic, normocephalic, PERRL, EOMI, oral mucosa appears pink and moist, nasal septum appears midline, nares are patent, dentition is poor. CARDIOVASCULAR: Regular heart rate and rhythm, normal S1 and S2, no audible murmur, rub, click, significantly improved burn to anterior chest from resuscitative pads with scar noted, no active bleeding or drainage, and cath placement in the right anterior chest, dressing is clean, dry, and intact. RESPIRATORY: Limited exam secondary to body habitus, clear to auscultation bi laterally, adequate inspiratory and expiratory airway excursion, symmetric airway entry, no audible focal consolidations, no wheeze, rhonchi, crackles. ABDOMINAL: Morbid, soft, nondistended, nontender to palpation, bowel sounds are diminished throughout, no apparent guarding or rebound, difficult to assess organomegaly due to body habitus. EXTREMITIES: Left lower extremity with healing anterior vick ulcer that has granulation tissue present; somewhat wide-based elliptical ulcer with granulation tissue present, minimal biofilm, no slough noted, with bright red blood; linear ulcer on dorsal aspect of left foot with dry sloughed skin, no drainage or active bleeding; chronic venous stasis changes with hemosiderosis noted on right lower extremity; +2 peripheral edema noted in the left lower ext remity extending up into the thigh; no clubbing, no cyanosis. NEUROLOGICAL: No focal neurological deficits. PSYCHOLOGICAL: Mood and affect appear appropriate. LABORATORY DATA, IMAGING STUDIES, MICROBIOLOGY: Please see below. Right complete shoulder x-ray on 02/28/2018 - no acute fracture or dislocation. Abdominal flat plate x-ray on 03/02/2018 - hold normal caliber colon, no evidence of obstruction, degenerative changes and left hip and lumbar spine. Left lower extremity arterial ultrasound on 03/03/2018 - unable to obtain ANTHONY or doppler measurements due to ulcer; normal triphasic waveforms and normal velocities from other lower extremity arteries; no evidence of arterial stenosis. Echocardiogram: Left ventricular diastolic dysfunction, dilated right heart chambers with hypokinesis of right ventricular free wall, moderate pulmonary hypertension. DVT prophylaxis ordered?: TEDs, sequentials, knee high compression. ASSESSMENT AND PLAN: This is a 62-year-old male with multiple co- morbidities and a complicated hospital course that required intubation, mechanical ventilation, and pressor support. Multifactorial etiology. PROBLEMS: 1. Critical illness myopathy: Physical and occupational therapy have been ordered. Patient may be out of bed to chair. Patient showing improvement with physical and occupational therapy. Recommendations included continued rehabilitation after medical discharge. Patient and family services working towards placement for continued rehabilitation. Patient will continue with hemodialysis outpatient. Patient family services have him patient information over to [facility]. 2. Acute renal failure superimposed on chronic kidney disease: Nephrology is consulted. Patient continues with hemodialysis secondary to an oliguric renal failure secondary to acute tubular necrosis. Hemodialysis removed 2.5 L on 03/07/2018. Perm-A-Cath has been placed. Heparin ordered to flush catheter only. Prior GFR was 49.1. Renal recovery is possible. Will continue to monitor closely. Renal diet. Nepro supplementation ordered. Electrolyte management by emodialysis and nephrology recommendations. Patient may be discharged to rehabilitative unit when medically cleared and may continue hemodialysis for acute renal failure as an outpatient. 3. Acute hypercarbic hypoxic respiratory failure: Required intubation and mechanical ventilation. Successfully extubated. Patient is currently saturating 93% on room air. This is appropriate. Have discontinued prednisone therapy. 4. New onset atrial fibrillation with rapid ventricular response: Patient con verted to normal sinus rhythm. Cardiology consulted. Continue Amiodarone 200mg by mouth thrice daily. Continue with Carvedilol 6.25mg by mouth every 6 hours with hold parameters and Lipitor 40mg by mouth nightly. Patient may benefit from cardiac evaluation with angiography; however, patient remains on hemodialysis and has a thrombocytopenia so further invasive cardiac evaluation is on hold for the time being. 5. Elevated troponin with lactic acidosis: Likely secondary to demand ischemia from hypoperfusion that required extensive pressor support. Echocardiogram obtained as resulted above. Cardiology consulted with recommendations for possible further cardiac intervention once patient is stabilized from a medical standpoint, if possible. Restarted Aspirin. Platelets > 50. No nephrotoxic agents given acute tubular necrosis and currently requiring hemodialysis. Hydralazine has been initiated for systolic blood pressure > 160. Continue Atorvastatin. Continue with beta-geri. 6. Shock liver: Continues to make daily improvements. Continue statin therapy. 7. Possible acute occult fracture of left knee: Orthopedics initially consulted. Recommended vascular surgery consultation. No surgical intervention secondary to patient's significant comorbidities. Patient may be weightbearing as tolerated, per updated orthopedic recommendations. Left lower extremity arterial Doppler ultrasound obtained. Limited secondary to ulcer on posterior aspect of left lower leg; however, no arterial stenosis noted in other arteries of the left lower extremity. Patient may use orthopedic brace. 8. Anemia: Stable. Peripheral smear obtained which revealed "Anemia with minimal macrocytosis and few circulating nucleated red blood cells, likely multifactorial. No abnormal immature leukocytes identified. Mild thrombocytopenia with essentially normal platelet morphology." Hypoproliferati on as indicated by reticulocyte index. Hemoglobin currently stable. No signs of active bleeding. 9. Heparin-induced thrombocytopenia: Patient was previously on Heparin for DVT prophylaxis, but developed a precipitous drop in platelet count. Heparin was discontinued. TEDS, sequentials, and knee high compression has been ordered for DVT prophylaxis. Aspirin has been restarted. Heparin was administered during hemodialysis sessions. This has been discontinued. Thrombocytopenia is improving. Likely secondary to acute and complicated hospital course due to cardiac arrest. Heparin-induced antibody positive. Serotonin release assay pending. 10. 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 Wound bases are clean and non-malodorous. Completed a ten-day course of antibiotic therapy. Blood cultures negative. Dressing changes with Linda Woodsonx, and Coban. 11. CAUTI: Likely result of chronic indwelling Anderson catheter. Completed 10- day antibiotic course. 12. Alcohol dependence: Patient has significant alcohol history. No withdrawal symptoms during hospital course. Have started Folic acid and Multivitamin. No need for Benzodiazepine at this time. 13. Depression: Continue with Fluoxetine. DISPOSITION: Continue physical therapy and occupational therapy. Continue hemodialysis. Working towards rehabilitative placement with accommodations for hemodialysis. VS, I&O, 24H, Fishbone Vital Signs/I&O Vital Signs Date Time Temp Pulse Resp B/P (MAP) Pulse Ox O2 Delivery O2 Flow Rate FiO2 03/08/18 08:00 99.8 88 19 116/55 (75) 91 Room Air 03/02/18 12:54 97.0 I&O- Last 24 Hours up to 6 AM 03/08/18 06:00 Intake Total 240 ml Output Total 2810 ml Balance -2570 ml Laboratory Data 24H LABS Laboratory Tests 2 03/08/18 05:22: Nucleated Red Blood Cells % (auto) 0.0, Anion Gap 7L, Glomerular Filtration Rate 16.4L, Blood Urea Nitrogen 23H, Creatinine 3.99H, Sodium Level 136, Potassium Level 4.2#, Chloride Level 100, Carbon Dioxide Level 29, Calcium Level 7.3L, Aspartate Amino Transf (AST/SGOT) 38H, Alanine Aminotransferase (ALT/SGPT) 89H, Alkaline Phosphatase 148H, Total Bilirubin 1.0, Total Protein 6.4, Albumin 1.7L, Magnesium Level 1.8, Albumin/Globulin Ratio 0.36L CBC/BMP Laboratory Tests 03/08/18 05:22 Red Blood Count 2.86 L, Mean Corpuscular Volume 100.0 H, Mean Corpuscular Hemoglobin 31.5, Mean Corpuscular Hemoglobin Concent 31.5 L, Red Cell Distribution Width 14.3, Calcium Level 7.3 L, Aspartate Amino Transf (AST/SGOT) 38 H, Alanine Aminotransferase (ALT/SGPT) 89 H, Alkaline Phosphatase 148 H, Total Bilirubin 1.0, Total Protein 6.4, Albumin 1.7 L GME ATTESTATION GME ATTESTATION My faculty preceptor for this patient encounter was physically present during the encounter and was fully available. All aspects of the patient interview, examination, medical decision making process, and medical care plan development were reviewed and approved by the faculty preceptor. The faculty preceptor is aware and concurs with the plan as stated in the body of this note and will attest to such by his/her cosignature. ATTENDING NOTE I, Isacc Trevino, have both independently examined this patient as well as reviewed the documentation. I have discussed in detail with the resident the findings and plan of treatment as documented in the residents documentation. I will continue to follow the patient and offer further guidance to the patients care as necessary during this hospital stay. CARMINE COCHRAN DO Mar 08, 2018 10:35 ISACC TREVINO MD Apr 04, 2018 18:58
[2018-03-08 11:45] VITALS: BP 122/67
[2018-03-08 16:00] VITALS: BP 126/60
--- NOTE | 2018-03-08 18:00 | IPNPDOC ---
Text Note Date of Service The patient was seen on 03/08/18. NOTE Subjective: Patient was examined this morning. He complained of pain from his permacath insertion. Otherwise he had no acute issues. Objective PHYSICAL EXAMINATION: VITALS See Below GENERAL APPEARANCE: Obese gentleman, sleeping in bed, had to be awakened. Was able to answer questions appropriately was able to commands ENT: No JVD, couple, no thyromegaly, no cervical lymphadenopathy, supple neck, LUNGS: Clear to auscultate anterior and posterior bilaterally upper and lower lungs HEART: S1 and S2 is present,regular rate and rhythm ABDOMEN: Soft. no tenderness, bowel sounds present Extremity; bandages wrapped around bilateral leg wounds, no edema, no sign of erythema, no sign of trauma Labs See Below PROBLEMS: 1. Acute renal failure superimposed on chronic kidney disease. Continues to be dialysis every Monday, Monday and Monday. He is scheduled for dialysis tomorrow. He continues to be oliguric, making very little urine. A total of 2.5 L of fluid was removed during dialysis on Monday. We'll continue dialysis upon discharge. 2. Atrial fibrillation. Stable, in sinus rhythm with only amiodarone therapy. We'll continue to follow. 3. Thrombocytopenia. continues to improve. Hold heparin, current heparin is 84 4. Anemia, secondary to kidney disease. Continues with Aranesp with dialysis. Stable hemo-crit and hemoglobin. We'll continue to monitor. Will transfuse patient as necessary. 5. Generalized weakness and deconditioning secondary to body habitus, will require rehab VS,Connie, I+O VS, [place], I+O Laboratory Tests 03/08/18 05:22 Red Blood Count 2.86 L, Mean Corpuscular Volume 100.0 H, Mean Corpuscular Hemoglobin 31.5, Mean Corpuscular Hemoglobin Concent 31.5 L, Red Cell Distribution Width 14.3, Calcium Level 7.3 L, Aspartate Amino Transf (AST/SGOT) 38 H, Alanine Aminotransferase (ALT/SGPT) 89 H, Alkaline Phosphatase 148 H, Total Bilirubin 1.0, Total Protein 6.4, Albumin 1.7 L Vital Signs Date Time Temp Pulse Resp B/P (MAP) Pulse Ox O2 Delivery O2 Flow Rate FiO2 03/08/18 16:00 100.7 83 19 126/60 (82) 94 Room Air 1/11/19 12:54 97.0 l I&O- Last 24 Hours up to 6 AM 03/08/18 06:00 Intake Total 240 ml Output Total 2810 ml Balance -2570 ml GME ATTESTATION GME ATTESTATION My faculty preceptor for this patient encounter was physically present during the encounter and was fully available. All aspects of the patient interview, examination, medical decision making process, and medical care plan development were reviewed and approved by the faculty preceptor. The faculty preceptor is aware and concurs with the plan as stated in the body of this note and will at test to such by his/her cosignature. STEVEN OVERTON DO Mar 08, 2018 18:00
[2018-03-08 20:00] VITALS: BP 120/69
[2018-03-08] MEDS: SLF 3 ML SYR IV PRN (20:31)
[2018-03-08] MEDS: ATORVASTATIN 20 MG TAB PO SCH (20:49)
[2018-03-08] MEDS: traZODone 100 MG TAB PO SCH (20:49)
[2018-03-09] VITALS: BP 139/71
[2018-03-09] MEDS: CARVedilol 6.25 MG TAB PO SCH ×4 (00:57→17:37)
[2018-03-09 04:00] VITALS: BP 136/66
[2018-03-09] MEDS: SLF 3 ML SYR IV SCH ×3 (05:25→20:45)
[2018-03-09 06:00] LABS: HEMATOCRIT 27.1 % (42.0-52.0); HEMOGLOBIN 8.5 g/dl (13.5-17.5); MEAN CORPUSCULAR HEMOGLOBIN 31.8 pg (27.0-33.0); MEAN CORPUSCULAR HGB CONC 31.4 g/dl (32.0-36.5); MEAN CORPUSCULAR VOLUME 101.5 fl (80.0-96.0); RED BLOOD COUNT 2.67 10^6/uL (4.30-6.10); WHITE BLOOD COUNT 9.7 10^3/uL (4.0-10.0)
[2018-03-09 06:10] LABS: PLATELET COUNT, AUTOMATED 79 10^3/uL (150-450)
[2018-03-09 06:46] LABS: ALBUMIN 1.6 GM/DL (3.2-5.2); BILIRUBIN,TOTAL 0.9 MG/DL (0.2-1.0); CALCIUM LEVEL 7.5 MG/DL (8.8-10.2); CREATININE FOR GFR 5.19 MG/DL (0.70-1.30); GLOMERULAR FILTRATION RATE 12.1 (>49); MAGNESIUM LEVEL 1.8 MG/DL (1.8-2.4); POTASSIUM SERUM 4.7 MEQ/L (3.5-5.1); TOTAL PROTEIN 6.5 GM/DL (6.4-8.2)
[2018-03-09 08:00] VITALS: BP 110/64
[2018-03-09] MEDS: FOLIC ACID 1 MG TAB PO SCH (08:56)
[2018-03-09] MEDS: AMIODARONE 200 MG TAB (PACERONE) PO SCH ×2 (08:56→20:45)
[2018-03-09] MEDS: ASPIRIN 81 MG CHEW TABLET PO SCH (08:56)
[2018-03-09] MEDS: PREGABALIN 100 MG CAP (LYRICA) PO SCH ×2 (08:57→20:45)
[2018-03-09] MEDS: MULTIVITAMINS/MINERALS THERAP 1 TAB PO SCH (08:57)
[2018-03-09] MEDS: FLUoxetine 20 MG CAP PO SCH (08:57)
[2018-03-09] MEDS: EUCERIN 120GM CREAM TOP SCH ×2 (08:57→20:45)
[2018-03-09] MEDS: PANTOPRAZOLE 40MG TAB (PROTONIX) PO SCH (08:57)
[2018-03-09] MEDS: NYSTATIN 100,000 UNITS/GM TOPICAL PWD 15 GM TOP SCH ×2 (08:57→20:44)
[2018-03-09 10:23] LABS: UNFRACTIONATED HEPARIN HI DOSE 2 % (0-20); UNFRACTIONATED HEPARIN LOW DOS 3 % (0-20)
[2018-03-09] MEDS ORDERED: HEPARIN 1,000 UNITS/ML 10ML VIAL (FOR RADIOLOGY& DIALYSIS ONLY) XX ONE (11:00)
--- NOTE | 2018-03-09 13:54 | IPNPDOC ---
Date Seen The patient was seen on 03/09/18. Progress Note SUBJECTIVE: Patient is a 62-year-old male with fall for which he was evaluated by orthopedic surgery and determined that no intervention was required. Chronic left lower extremity wound and chronic indwelling Anderson catheter with both revealing microbial activity. Patient started on a ntibiotics. Patient was found unresponsive fine sander of 02/19/2018. He underwent for cardiopulmonary resuscitative events with successful return of spontaneous circulation obtained after each event. Patient was intubated, mechanically ventilated, and placed on three pressors. Elevated troponin without ST elevation possibly secondary to demand ischemia. Poor renal perfusion with anuria requiring hemodialysis. Successfully extubated on 02/24/2018 and transferred to hospitalist service. Patient is evaluated at bedside this morning. History is working with physical therapy and occupational therapy and appears to be tremulous and states that he is quite tired. Overall he feels well. No nausea, vomiting, abdominal pain. Tolerating an oral diet. OBJECTIVE PHYSICAL EXAMINATION: VITAL SIGNS: Please see below. GENERAL: Morbidly obese male, alert and conversant, improvement in mood, appropriately dressed, in no acute distress. HEENT: Atraumatic, normocephalic, PERRL, EOMI, oral mucosa appears pink and moist, nasal septum appears midline, nares are patent, dentition is poor. CARDIOVASCULAR: Regular heart rate and rhythm, normal S1 and S2, no audible murmur, rub, click, small isolated scans remaining on anterior centralized chest from resuscitative pads, erythematous flat confluent appearing rash on anterior chest that is nonpruritic and nonpainful, Perm-A-Cath noted on right sided anterior chest, dressing is clean, dry, and intact. RESPIRATORY: Limited exam secondary to body habitus, clear to auscultation bilaterally, adequate inspiratory and expiratory airway excursion, symmetric airway entry, no audible focal consolidations, no wheeze, rhonchi, crackles. ABDOMINAL: Morbid, soft, nondistended, nontender to palpation, bowel sounds appreciated throughout, no apparent guarding or rebound, difficult to assess organomegaly due to body habitus. EXTREMITIES: Left lower extremity is wrapped in OptiLock and Coban, no strikethrough is apparent, chronic venous stasis changes with hemosiderosis noted on right lower extremity; +2 peripheral edema noted in the left lower extremity extending up into the thigh; no clubbing, no cyanosis. NEUROLOGICAL: No focal neurological deficits. PSYCHOLOGICAL: Mood and affect appear appropriate. LABORATORY DATA, IMAGING STUDIES, MICROBIOLOGY: Please see below. Right complete shoulder x-ray on 02/28/2018 - no acute fracture or dislocation. Abdominal flat plate x-ray on 03/02/2018 - hold normal caliber colon, no evidenc e of obstruction, degenerative changes and left hip and lumbar spine. Left lower extremity arterial ultrasound on 03/03/2018 - unable to obtain ANTHONY or doppler measurements due to ulcer; normal triphasic waveforms and normal velocities from other lower extremity arteries; no evidence of arterial huy nosis. Echocardiogram: Left ventricular diastolic dysfunction, dilated right heart chambers with hypokinesis of right ventricular free wall, moderate pulmonary hypertension. DVT prophylaxis ordered?: TEDs, sequentials, knee high compression. 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 Multifactorial etiology. PROBLEMS: 1. Critical illness myopathy: Physical and occupational therapy have been ordered. Patient may be out of bed to chair. Patient showing improvement with physical and occupational therapy. Recommendations included continued bertha abilitation after medical discharge. Patient and family services working towards placement for continued rehabilitation. Patient will continue with hemodialysis outpatient. Patient family services have him patient information over to [employer]. 2. Acute renal failure superimposed on chronic kidney disease: Nephrology is consulted. Patient continues with hemodialysis secondary to an anuric/oliguric renal failure secondary to acute tubular necrosis. Hemodialysis removed 2.5 L on 03/07/2018. Perm-A-Cath has been placed. Heparin ordered to flush catheter only. Prior GFR was 49.1. Renal recovery is possible. Will continue to monitor closely. Renal diet. Nepro supplementation ordered. Electrolyte management by hemodialysis and nephrology recommendations. Corrected calcium is 9.4. Patient may be discharged to rehabilitative unit when medically cleared and may continue hemodialysis for acute renal failure as an outpatient. 3. Acute hypercarbic hypoxic respiratory failure: Required intubation and mechanical ventilation. Successfully extubated. Patient is currently saturating 91% on room air. This is appropriate. Acapella has been added. 4. New onset atrial fibrillation with rapid ventricular response: Patient converted to normal sinus rhythm. Cardiology consulted. Continue Amiodarone 200mg by mouth thrice daily. Continue with Carvedilol 6.25mg by mouth every 6 hours with hold parameters and Lipitor 40mg by mouth nightly. Patient may benefit from cardiac evaluation with angiography; however, patient remains on hemodialysis and has a thrombocytopenia so further invasive cardiac evaluation is on hold for the time being. 5. Elevated troponin with lactic acidosis: Likely secondary to demand ischemia from hypoperfusion that required extensive pressor support. Echocardiogram obtained as resulted above. Cardiology consulted with recommendations for possible further cardiac intervention once patient is stabilized from a medical standpoint, if possible. Continue Aspirin. Platelets > 50. No nephrotoxic agents given acute tubular necrosis and currently requiring hemodialysis. Hydralazine has been discontinued. Continue Atorvastatin. Continue with beta- geri. 6. Shock liver: Continues to make daily improvements. Continue statin therapy. 7. Possible acute occult fracture of left knee: Orthopedics initially consulted. Recommended vascular surgery consultation. No surgical intervention secondary to patient's significant comorbidities. Patient may be weightbearing as tolerated, per updated orthopedic recommendations. Left lower extremity arterial Doppler ultrasound obtained. Limited secondary to ulcer on posterior aspect of left lower leg; however, no arterial stenosis noted in other arteries of the left lower extremity. Patient may use orthopedic brace. 8. Anemia: Stable. Peripheral smear obtained which revealed "Anemia with minimal macrocytosis and few circulating nucleated red blood cells, likely multifactorial. No abnormal immature leukocytes identified. Mild thrombocytopenia with essentially normal platelet morphology." Hypoproliferatio n as indicated by reticulocyte index. Hemoglobin currently stable. No signs of active bleeding. 9. Heparin-induced thrombocytopenia: Patient was previously on Heparin for DVT prophylaxis, but developed a precipitous drop in platelet count. Heparin was discontinued. TEDS, sequentials, and knee high compression has been ordered for DVT prophylaxis. Continue Aspirin. Heparin was administered during hemodialysis sessions. This has been discontinued. Heparin to flush catheter only. Thrombocytopenia is improving. Likely secondary to acute and complicated hospital course due to cardiac arrest. Heparin-induced antibody positive. Serotonin release assay is negative. 10. 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 Wound bases are clean and non-malodorous. Completed a ten-day course of antibiotic therapy. Blood cultures negative. Dressing changes with OptiLock, Kerlix, and Coban. 11. CAUTI: Likely result of chronic indwelling Anderson catheter. Completed 10-da y antibiotic course. 12. Alcohol dependence: Patient has significant alcohol history. No withdrawal symptoms during hospital course. Have started Folic acid and Multivitamin. No need for Benzodiazepine at this time. 13. Depression: Continue with Fluoxetine. 14. Irritant dermatitis: Noted on anterior chest. Nonpruritic and nonpainful. Monitor for the time being. Likely secondary to chlorhexidine antiseptic. DISPOSITION: Transfer to medical surgical unit with remote telemetry. Continue physical and occupational therapy. Continue hemodialysis. Prolonged hospital course. Potential transfer to rehabilitative unit once patient is able to transfer independently into wheelchair. [facility] Vital Signs Date Time Temp Pulse Resp B/P (MAP) Pulse Ox O2 Delivery O2 Flow Rate FiO2 03/09/18 08:00 99.7 91 18 110/64 (79) 91 Room Air I&O- Last 24 Hours up to 6 AM 03/09/18 06:00 Intake Total 1200 ml Output Total 450 ml Balance 750 ml Laboratory Data 24H LABS Laboratory Tests 2 03/09/18 05:19: Nucleated Red Blood Cells % (auto) 0.0, Immature Platelet Fraction 2.2, Anion Gap 6L, Glomerular Filtration Rate 12.1L, Blood Urea Nitrogen 34H, Creatinine 5.19H, Sodium Level 135L, Potassium Level 4.7, Chloride Level 100, Carbon Dioxide Level 29, Calcium Level 7.5L, Aspartate Amino Transf (AST/SGOT) 48H, Alanine Aminotransferase (ALT/SGPT) 68, Alkaline Phosphatase 156H, Total Bilirubin 0.9, Total Protein 6.5, Albumin 1.6L, Magnesium Level 1.8, Albumin/Globulin Ratio 0.33L CBC/BMP Laboratory Tests 03/09/18 05:19 Red Blood Count 2.67 L, Mean Corpuscular Volume 101.5 H, Mean Corpuscular Hemoglobin 31.8, Mean Corpuscular Hemoglobin Concent 31.4 L, Red Cell Distribution Width 14.6 H, Calcium Level 7.5 L, Aspartate Amino Transf (AST/SGOT) 48 H, Alanine Aminotransferase (ALT/SGPT) 68, Alkaline Phosphatase 156 H, Total Bilirubin 0.9, Total Protein 6.5, Albumin 1.6 L GME ATTESTATION GME ATTESTATION My faculty preceptor for this patient encounter was physically present during the encounter and was fully available. All aspects of the patient interview, examination, medical decision making process, and medical care plan development were reviewed and approved by the faculty preceptor. The faculty preceptor is aware and concurs with the plan as stated in the body of this note and will attest to such by his/her cosignature. ATTENDING NOTE I, Isacc Gross, have both independently examined this patient as well as reviewed the documentation. I have discussed in detail with the resident the findings and plan of treatment as documented in the residents documentation. I will continue to follow the patient and offer further guidance to the patients care as necessary during this hospital stay. CARMINE COCHRAN DO Mar 09, 2018 13:54 ISACC GROSS MD Apr 04, 2018 19:01
[2018-03-09 16:00] VITALS: BP 112/58
--- NOTE | 2018-03-09 17:27 | IPNPDOC ---
Text Note Date of Service The patient was seen on 03/09/18. NOTE Subjective: Patient was examined during dialysis today. He was resting comfortably in bed. He had no acute issues. He appeared to be tolerating the procedure without difficulties. He was pleasant and conversant. Objective PHYSICAL EXAMINATION: VITALS See Below GENERAL APPEARANCE: Obese gentleman, resting comfortably in dialysis bed, Neck: JVD, couple, no cervical lymphadenopathy, supple neck, LUNGS: Clear to auscultate anterior and posterior bilaterally upper and lower l ungs HEART: S1 and S2 is present,regular rate and rhythm ABDOMEN: Soft. no tenderness, bowel sounds present, no guarding, no rebound tenderness Extremity; no edema, Labs See Below PROBLEMS: 1. Acute renal failure superimposed on chronic kidney disease. Continues to be dialysis every Monday, Monday and Monday. He continues to require dialysis due to poor urinary output and kidney injury. BUN and creatinine continues to improve with each subsequent dialysis. We'll continue patient's scheduled, with hope of renal recovery. 2. Atrial fibrillation. Stable, cardiology on board, continues to be on antiarrhythmics therapy. No issues to report 3. Thrombocytopenia. Was improving, however, however, there was a slight decline in his platelets from 84 279 overnight. We'll continue to monitor. He is currently not on any heparin. However, he continues to be on aspirin. Consider discontinuation of aspirin. If patient's platelets continue to drop. There has been no reported episodes of bleeding. 4. Anemia, secondary to kidney disease. Continues with Aranesp with dialysis. Stable hemoglobin and hemoglobin. Continue to monitor. Patient does not require transfusion at this time. 5. Generalized weakness and deconditioning secondary to body habitus, will require rehab at discharge VS,Connie, I+O VS, Connie, I+O Laboratory Tests 03/09/18 05:19 Red Blood Count 2.67 L, Mean Corpuscular Volume 101.5 H, Mean Corpuscular Hemoglobin 31.8, Mean Corpuscular Hemoglobin Concent 31.4 L, Red Cell Distribution Width 14.6 H, Calcium Level 7.5 L, Aspartate Amino Transf (AST/SGOT) 48 H, Alanine Aminotransferase (ALT/SGPT) 68, Alkaline Phosphatase 156 H, Total Bilirubin 0.9, Total Protein 6.5, Albumin 1.6 L Vital Signs Date Time Temp Pulse Resp B/P (MAP) Pulse Ox O2 Delivery O2 Flow Rate FiO2 03/09/18 16:00 98.3 84 1 112/58 (76) 98 Room Air I&O- Last 24 Hours up to 6 AM 03/09/18 06:00 Intake Total 1200 ml Output Total 450 ml Balance 750 ml GME ATTESTATION GME ATTESTATION My faculty preceptor for this patient encounter was physically present during the encounter and was fully available. All aspects of the patient interview, examination, medical decision making process, and medical care plan development were reviewed and approved by the faculty preceptor. The faculty preceptor is aware and concurs with the plan as stated in the body of this note and will attest to such by his/her cosignature. STEVEN OVERTON DO Mar 09, 2018 17:27
[2018-03-09 18:00] VITALS: BP 135/68
[2018-03-09] MEDS: traZODone 100 MG TAB PO SCH (20:45)
[2018-03-09] MEDS: ATORVASTATIN 20 MG TAB PO SCH (20:46)
[2018-03-09 22:00] VITALS: BP 133/68
[2018-03-10] MEDS: CARVedilol 6.25 MG TAB PO SCH ×4 (00:17→17:54)
[2018-03-10 02:00] VITALS: BP 128/58
[2018-03-10] MEDS: SLF 3 ML SYR IV SCH ×3 (06:05→21:40)
[2018-03-10 06:14] LABS: HEMATOCRIT 27.2 % (42.0-52.0); HEMOGLOBIN 8.5 g/dl (13.5-17.5); MEAN CORPUSCULAR HEMOGLOBIN 31.8 pg (27.0-33.0); MEAN CORPUSCULAR HGB CONC 31.3 g/dl (32.0-36.5); MEAN CORPUSCULAR VOLUME 101.9 fl (80.0-96.0); RED BLOOD COUNT 2.67 10^6/uL (4.30-6.10); WHITE BLOOD COUNT 8.5 10^3/uL (4.0-10.0)
[2018-03-10 06:15] LABS: PLATELET COUNT, AUTOMATED 70 10^3/uL (150-450)
[2018-03-10 06:37] LABS: ALBUMIN 1.6 GM/DL (3.2-5.2); BILIRUBIN,TOTAL 0.9 MG/DL (0.2-1.0); CALCIUM LEVEL 7.2 MG/DL (8.8-10.2); CREATININE FOR GFR 3.64 MG/DL (0.70-1.30); GLOMERULAR FILTRATION RATE 18.2 (>49); MAGNESIUM LEVEL 1.9 MG/DL (1.8-2.4); POTASSIUM SERUM 3.5 MEQ/L (3.5-5.1); TOTAL PROTEIN 6.5 GM/DL (6.4-8.2)
[2018-03-10] MEDS: FLUoxetine 20 MG CAP PO SCH (08:26)
[2018-03-10] MEDS: MULTIVITAMINS/MINERALS THERAP 1 TAB PO SCH (08:26)
[2018-03-10] MEDS: AMIODARONE 200 MG TAB (PACERONE) PO SCH ×2 (08:26→21:38)
[2018-03-10] MEDS: FOLIC ACID 1 MG TAB PO SCH (08:26)
[2018-03-10] MEDS: PANTOPRAZOLE 40MG TAB (PROTONIX) PO SCH (08:26)
[2018-03-10] MEDS: PREGABALIN 100 MG CAP (LYRICA) PO SCH ×2 (08:26→21:38)
[2018-03-10] MEDS: NYSTATIN 100,000 UNITS/GM TOPICAL PWD 15 GM TOP SCH ×2 (08:27→21:39)
[2018-03-10] MEDS: EUCERIN 120GM CREAM TOP SCH ×2 (08:27→21:00)
--- NOTE | 2018-03-10 09:44 | IPNPDOC ---
Date Seen The patient was seen on 03/10/18. Progress Note SUBJECTIVE: Patient is a 62-year-old male with fall for which he was evaluated by orthopedic surgery and determined that no intervention was required. Chronic left lower extremity wound and chronic indwelling Anderson catheter with both revealing microbial activity. Patient started on a ntibiotics. 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 He underwent for cardiopulmonary resuscitative events with successful return of spontaneous circulation obtained after each event. Patient was intubated, mechanically ventilated, and placed on three pressors. Elevated troponin without ST elevation possibly secondary to demand ischemia. Poor renal perfusion with anuria requiring hemodialysis. Successfully extubated on 02/24/2018 and transferred to hospitalist service. Patient is evaluated at bedside this morning. He has been transferred to the medical-surgical unit. He is laying in bed in the supine position. He states that his "belly is rumbling." He ate breakfast without difficulty. Denies nausea, vomiting, abdominal pain. Has a somewhat pruritic rash on the anterior chest. OBJECTIVE PHYSICAL EXAMINATION: VITAL SIGNS: Please see below. GENERAL: Morbidly obese male, alert and conversant, improvement in mood, appropriately dressed, in no acute distress. HEENT: Atraumatic, normocephalic, PERRL, EOMI, oral mucosa appears pink and moist, nasal septum appears midline, nares are patent, dentition is poor. CARDIOVASCULAR: Regular heart rate and rhythm, normal S1 and S2, no audible murmur, rub, click, small isolated scans remaining on anterior centralized chest from resuscitative pads, erythematous flat confluent appearing rash on anterior chest that is nonpainful, Perm-A-Cath noted on right sided anterior chest, dressing is clean, dry, and intact. RESPIRATORY: Limited exam secondary to body habitus, clear to auscultation bilaterally, adequate inspiratory and expiratory airway excursion, symmetric airway entry, no audible focal consolidations, no wheeze, rhonchi, crackles. ABDOMINAL: Morbid, soft, nondistended, nontender to palpation, hyperactive bowel sounds appreciated throughout, no apparent guarding or rebound, difficult to assess organomegaly due to body habitus. EXTREMITIES: Left lower extremity is wrapped in OptiLock and Coban, no strikethrough is apparent, chronic venous stasis changes with hemosiderosis noted on right lower extremity; +2 peripheral edema noted in the left lower extremity extending up into the thigh; no clubbing, no cyanosis. NEUROLOGICAL: No focal neurological deficits. PSYCHOLOGICAL: Mood and affect appear appropriate. LABORATORY DATA, IMAGING STUDIES, MICROBIOLOGY: Please see below. Right complete shoulder x-ray on 02/28/2018 - no acute fracture or dislocation. Abdominal flat plate x-ray on 03/02/2018 - hold normal caliber colon, no evidence of obstruction, degenerative changes and left hip and lumbar spine. Left lower extremity arterial ultrasound on 03/03/2018 - unable to obtain ANTHONY or Doppler measurements due to ulcer; normal triphasic waveforms and normal velocities from other lower extremity arteries; no evidence of arterial stenosis. Echocardiogram: Left ventricular diastolic dysfunction, dilated right heart chambers with hypokinesis of right ventricular free wall, moderate pulmonary hypertension. DVT prophylaxis ordered?: TEDs, sequentials, knee high compression. ASSESSMENT AND PLAN: This is a 62-year-old male with multiple co- morbidities and a complicated hospital course that required intubation, mechanical ventilation, and pressor support. Multifactorial etiology. PROBLEMS: 1. Dermatitis: Noted on anterior chest. Irritant versus medication-induced. Somewhat pruritic. No significant changes have been made to medications. Possible irritant reaction. May add Clobetasol for symptomatic relief twice daily for four weeks. 2. Critical illness myopathy: Physical and occupational therapy have been ordered. Patient may be out of bed to chair. Patient showing improvement with physical and occupational therapy. Recommendations included continued rehabilitation after medical discharge. Patient and family services working towards placement for continued rehabilitation. Patient will continue with hemodialysis outpatient. Patient family services have him patient information over to [facility]. 3. Acute renal failure superimposed on chronic kidney disease: Nephrology is consulted. Patient continues with hemodialysis secondary to an anuric/oliguric renal failure secondary to acute tubular necrosis. Hemodialysis removed 2.5 L on 03/07/2018. Perm-A-Cath has been placed. Heparin ordered to flush catheter only. Prior GFR was 49.1. Renal recovery is possible. Will continue to monitor closely. Renal diet. Nepro supplementation ordered. Electrolyte management by hemodialysis and nephrology recommendations. Corrected calcium is 9.1. Patient may be discharged to rehabilitative unit when medically cleared and may continue hemodialysis for acute renal failure as an outpatient. 4. Acute hypercarbic hypoxic respiratory failure: Required intubation and mechanical ventilation. Successfully extubated. Patient is currently saturating 92% on room air. This is appropriate. Continue Acapella. 5. New onset atrial fibrillation with rapid ventricular response: Patient converted to normal sinus rhythm. Cardiology consulted. Continue Amiodarone 200mg by mouth thrice daily. Continue with Carvedilol 6.25mg by mouth every 6 hours with hold parameters and Lipitor 40mg by mouth nightly. Patient may benefit from cardiac evaluation with angiography; however, patient remains on hemodialysis and has a thrombocytopenia so further invasive cardiac evaluation is on hold for the time being. 6. Elevated troponin with lactic acidosis: Likely secondary to demand ischemia from hypoperfusion that required extensive pressor support. Echocardiogram obtained as resulted above. Cardiology consulted with recommendations for possible further cardiac intervention once patient is stabilized from a medical standpoint, if possible. Aspirin has been discontinued due to worsening platelet function. Platelets > 50. No nephrotoxic agents given acute tubular necrosis and currently requiring hemodialysis. Continue Atorvastatin. Continue with beta-geri. 7. Shock liver: Continues to make daily improvements. Continue statin therapy. 8. Possible acute occult fracture of left knee: Orthopedics initially consulted. Recommended vascular surgery consultation. No surgical intervention secondary to patient's significant comorbidities. Patient may be weightbearing as tolerated, per updated orthopedic recommendations. Left lower extremity arterial Doppler ultrasound obtained. Limited secondary to ulcer on posterior aspect of left lower leg; however, no arterial stenosis noted in other arteries of the left lower extremity. Patient may use orthopedic brace. 9. Anemia: Stable. Peripheral smear obtained which revealed "Anemia with minim al macrocytosis and few circulating nucleated red blood cells, likely multifactorial. No abnormal immature leukocytes identified. Mild thrombocytopenia with essentially normal platelet morphology." H ypoproliferation as indicated by reticulocyte index. Hemoglobin currently stable. No signs of active bleeding. 10. Heparin-induced thrombocytopenia: Patient was previously on Heparin for DVT prophylaxis, but developed a precipitous drop in platelet count. Heparin was discontinued. TEDS, sequentials, and knee high compression has been ordered for DVT prophylaxis. Aspirin has been discontinued due to worsening platelet function. Heparin was administered during hemodialysis sessions. This has been discontinued. Heparin to flush catheter only, but may consider discontinuation due to worsening platelet function.. Likely secondary to acute and complicated hospital course due to cardiac arrest. Heparin-induced antibody positive. Serotonin release assay is negative. 11. 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 Wound bases are clean and non-malodorous. Completed a ten-day course of antibiotic therapy. Blood cultures negative. Dressing changes with OptiLock, Kerlix, and Coban. 12. CAUTI: Likely result of chronic indwelling Anderson catheter. Completed 10- day antibiotic course. 13. Alcohol dependence: Patient has significant alcohol history. No withdrawal symptoms during hospital course. Have started Folic acid and Multivitamin. No need for Benzodiazepine at this time. 14. Depression: Continue with Fluoxetine. DISPOSITION: Continue physical and occupational therapy. Continue hemodialysis. Prolonged hospital course. Potential transfer to rehabilitative unit once patient is able to transfer independently into wheelchair. VS, I&O, 24H, Fishbone Vital Signs/I&O Vital Signs Date Time Temp Pulse Resp B/P (MAP) Pulse Ox O2 Delivery O2 Flow Rate FiO2 03/10/18 06:06 72 119/58 03/10/18 02:00 100.2 20 92 Room Air I&O- Last 24 Hours up to 6 AM 03/10/18 06:00 Intake Total 320 ml Output Total 2800 ml Balance -2480 ml Laboratory Data 24H LABS Laboratory Tests 2 03/10/18 05:54: Nucleated Red Blood Cells % (auto) 0.0, Immature Platelet Fraction 1.8, Anion Gap 6L, Glomerular Filtration Rate 18.2L, Blood Urea Nitrogen 20H, Creatinine 3.64H, Sodium Level 137, Potassium Level 3.5#, Chloride Level 101, Carbon Dioxide Level 30, Calcium Level 7.2L, Aspartate Amino Transf (AST/SGOT) 34, Alanine Aminotransferase (ALT/SGPT) 56, Alkaline Phosphatase 139H, Total Bilirubin 0.9, Total Protein 6.5, Albumin 1.6L, Magnesium Level 1.9, Albumin/Globulin Ratio 0.33L CBC/BMP Laboratory Tests 03/10/18 05:54 Red Blood Count 2.67 L, Mean Corpuscular Volume 101.9 H, Mean Corpuscular Hemoglobin 31.8, Mean Corpuscular Hemoglobin Concent 31.3 L, Red Cell Distribution Width 14.6 H, Calcium Level 7.2 L, Aspartate Amino Transf (AST/SGOT) 34, Alanine Aminotransferase (ALT/SGPT) 56, Alkaline Phosphatase 139 H, Total Bilirubin 0.9, Total Protein 6.5, Albumin 1.6 L GME ATTESTATION GME ATTESTATION My faculty preceptor for this patient encounter was physically present during the encounter and was fully available. All aspects of the patient interview, examination, medical decision making process, and medical care plan development were reviewed and approved by the faculty preceptor. The faculty preceptor is aware and concurs with the plan as stated in the body of this note and will attest to such by his/her cosignature. ATTENDING NOTE I, Isacc Gross, have both independently examined this patient as well as rev iewed the documentation. I have discussed in detail with the resident the findings and plan of treatment as documented in the residents documentation. I will continue to follow the patient and offer further guidance to the patients care as necessary during this hospital stay. CARMINE COCHRAN DO Mar 10, 2018 09:44 ISACC GROSS MD Apr 04, 2018 19:03
[2018-03-10 10:00] VITALS: BP 129/60
[2018-03-10] MEDS: PERCOCET 5MG/325MG TAB PO PRN (10:29)
[2018-03-10 11:58] LABS: HEMOGLOBIN 8.2 g/dl (13.5-17.5)
[2018-03-10] MEDS: CLOBETASOL PROP 0.05% OINT 30 GM TOP SCH ×2 (12:40→21:00)
[2018-03-10] MEDS: ASPIRIN 81 MG ENTERIC TAB PO SCH (13:28)
[2018-03-10 14:00] VITALS: BP 123/60
--- NOTE | 2018-03-10 14:04 | IPNPDOC ---
Text Note Date of Service The patient was seen on 03/10/18. NOTE Subjective: Patient was examined at bedside. He was resting comfortably in bed. He complained about leg pain. He had dialysis yesterday a total of 2.5 L of fluid was removed. He continues to be oliguric with only 200 mL of urine overnight. Objective PHYSICAL EXAMINATION: VITALS See Below GENERAL APPEARANCE: Morbidly obese gentleman, resting in bed, complaining of leg pain, Neck: JVD, couple, no cervical lymphadenopathy, supple neck, head is atraumatic. No signs of trauma LUNGS: Diminished breath sound due to patients body habitus. No wheezing or rhonchi HEART: S1 and S2 is present,regular rate and rhythm ABDOMEN: Soft. no tenderness, bowel sounds present, no guarding, no rebound tenderness Extremity; no edema, bilateral legs wrapped and wound dressing. Labs See Below PROBLEMS: 1. Acute renal failure superimposed on chronic kidney disease. Continues to be dialysis every Monday, Monday and Monday. He underwent dialysis yesterday. He tolerated procedure without difficulty. He continues to make very little urine. He had a total of 200 mL of urine production overnight. We'll continue to monitor. Patient will likely continue to require dialysis. 2. Atrial fibrillation. Stable, cardiology on board, continues to be on antiarrhythmics therapy. No issues to report 3. Thrombocytopenia. , Platelet continued decline, heparin is on hold, DOLLY for fraction heparin was low, splenic ultrasound ordered to determine if there is splenic sequestration of patient's platelets. Continues to be an aspirin 81 mg daily. 4. Anemia, secondary to kidney disease. Continues with Aranesp with dialysis. Current hemoglobin is 8.2, with a hematocrit of 26. Consider blood transfusion once. Patient's hemoglobin drops below 8. 5. Generalized weakness and deconditioning secondary to body habitus, will require rehab at discharge VS,Connie, I+O VS, Connie, I+O Laboratory Tests 03/10/18 05:54 Red Blood Count 2.67 L, Mean Corpuscular Volume 101.9 H, Mean Corpuscular Hemoglobin 31.8, Mean Corpuscular Hemoglobin Concent 31.3 L, Red Cell Distribution Width 14.6 H, Calcium Level 7.2 L, Aspartate Amino Transf (AST/SGOT ) 34, Alanine Aminotransferase (ALT/SGPT) 56, Alkaline Phosphatase 139 H, Total Bilirubin 0.9, Total Protein 6.5, Albumin 1.6 L 03/10/18 11:48 Vital Signs Date Time Temp Pulse Resp B/P (MAP) Pulse Ox O2 Delivery O2 Flow Rate FiO2 03/10/18 12:24 78 129/60 03/10/18 10:59 18 Room Air 03/10/18 02:00 100.2 92 I&O- Last 24 Hours up to 6 AM 03/10/18 06:00 Intake Total 320 ml Output Total 2800 ml Balance -2480 ml GME ATTESTATION GME ATTESTATION My faculty preceptor for this patient encounter was physically present during the encounter and was fully available. All aspects of the patient interview, examination, medical decision making process, and medical care plan development were reviewed and approved by the faculty preceptor. The faculty preceptor is aware and concurs with the plan as stated in the body of this note and will attest to such by his/her cosignature. STEVEN OVERTON DO Mar 10, 2018 14:04
[2018-03-10] MEDS: guaiFENesin ER 600 MG TAB PO SCH ×2 (14:51→21:38)
--- NOTE | 2018-03-10 17:00 | REP ---
LIMITED ABDOMINAL ULTRASOUND (SPLEEN) : 03/10/2018. Clinical history: Thrombocytopenia. Evaluate spleen in the left upper quadrant. Comparison: CT abdomen pelvis 06/18/2016. Findings: Sonographic evaluation of the left upper quadrant was technically challenging due to body habitus considerations. That said, the spleen is seen measuring 14.1 x 5.2 by 11.6 cm. Gives a calculated splenic index of 850, normal range is 480 or lower. This represents mild splenic enlargement. No visible splenic mass, subcapsular hematoma or perisplenic ascites. No abnormal calcifications. The right kidney is 13.4 x 5.2 x 5.5 cm. Cortical thickness is adequate. The echogenicity may be slightly increased. There are multiple cysts with the three largest measuring 4.3 x 4.1 cm in the mid lower pole and another measuring 2.2 x 1.8 x 1.8 cm in the interpolar region of the upper pole cyst is 1.9 x 1.3 x 1.2 cm. This corresponds cyst seen on the CT. There are several smaller cysts by CT are not well visualized on this ultrasound which has a technical indications described above. No hydronephrosis suggested. Impression: 1. Mild splenomegaly with a splenic index of 850 and the normal range less than 480. No discrete splenic mass, subcapsular hematoma or adjacent ascites. 2. Multiple renal cysts as described, similar to that seen on CT 2 years ago. No hydronephrosis. I suspect there may be some medical renal disease with some increased echogenicity of the cortex but body habitus considerations make that determination very challenging. Electronically Signed by Yogesh Artis MD 03/10/2018 04:51 P
[2018-03-10 18:00] VITALS: BP 114/65
[2018-03-10] MEDS: ATORVASTATIN 20 MG TAB PO SCH (21:38)
[2018-03-10] MEDS: traZODone 100 MG TAB PO SCH (21:38)
[2018-03-10 22:00] VITALS: BP 122/65
[2018-03-11] MEDS: CARVedilol 6.25 MG TAB PO SCH ×4 (00:32→18:44)
[2018-03-11 06:00] VITALS: BP 118/64
[2018-03-11] MEDS: SLF 3 ML SYR IV SCH ×3 (06:31→21:01)
[2018-03-11 06:48] LABS: HEMATOCRIT 26.3 % (42.0-52.0); HEMOGLOBIN 8.3 g/dl (13.5-17.5); MEAN CORPUSCULAR HEMOGLOBIN 31.4 pg (27.0-33.0); MEAN CORPUSCULAR HGB CONC 31.6 g/dl (32.0-36.5); MEAN CORPUSCULAR VOLUME 99.6 fl (80.0-96.0); RED BLOOD COUNT 2.64 10^6/uL (4.30-6.10); WHITE BLOOD COUNT 6.4 10^3/uL (4.0-10.0)
[2018-03-11 06:53] LABS: PLATELET COUNT, AUTOMATED 63 10^3/uL (150-450)
[2018-03-11 07:21] LABS: ALBUMIN 1.6 GM/DL (3.2-5.2); BILIRUBIN,TOTAL 0.8 MG/DL (0.2-1.0); CALCIUM LEVEL 7.2 MG/DL (8.8-10.2); CREATININE FOR GFR 4.78 MG/DL (0.70-1.30); GLOMERULAR FILTRATION RATE 13.3 (>49); MAGNESIUM LEVEL 1.6 MG/DL (1.8-2.4); POTASSIUM SERUM 3.4 MEQ/L (3.5-5.1); TOTAL PROTEIN 6.6 GM/DL (6.4-8.2)
[2018-03-11] MEDS ORDERED: POTASSIUM CHLORIDE 10 MEQ SR TABLET PO ONE (07:30)
[2018-03-11] MEDS ORDERED: MAG SULF 1GM/100ML (MAG RUN) 1 GM in APPROPRIATE DILUENT 1 EA IV ONE (07:45)
[2018-03-11] MEDS: ASPIRIN 81 MG ENTERIC TAB PO SCH (08:44)
[2018-03-11] MEDS: FOLIC ACID 1 MG TAB PO SCH (08:44)
[2018-03-11] MEDS: PREGABALIN 100 MG CAP (LYRICA) PO SCH ×2 (08:44→21:01)
[2018-03-11] MEDS: PANTOPRAZOLE 40MG TAB (PROTONIX) PO SCH (08:44)
[2018-03-11] MEDS: AMIODARONE 200 MG TAB (PACERONE) PO SCH ×2 (08:44→21:01)
[2018-03-11] MEDS: guaiFENesin ER 600 MG TAB PO SCH ×2 (08:44→21:01)
[2018-03-11] MEDS: EUCERIN 120GM CREAM TOP SCH ×2 (08:45→21:00)
[2018-03-11] MEDS: NYSTATIN 100,000 UNITS/GM TOPICAL PWD 15 GM TOP SCH ×2 (08:45→21:00)
[2018-03-11] MEDS: MULTIVITAMINS/MINERALS THERAP 1 TAB PO SCH (08:45)
[2018-03-11] MEDS: FLUoxetine 20 MG CAP PO SCH (08:45)
[2018-03-11] MEDS: CLOBETASOL PROP 0.05% OINT 30 GM TOP SCH ×2 (08:45→21:00)
[2018-03-11 10:00] VITALS: BP 110/60
--- NOTE | 2018-03-11 12:44 | IPNPDOC ---
Text Note Date of Service The patient was seen on 03/11/18. NOTE Subjective: Patient is a 62 year old male with a PMHx of HTN, PAD, Venous stasis ulcers, Chronic L Leg ulceration (follows w/ Dr. Perera), Morbid obesity, Chronic back pain / Spinal cord injury (2001) / Wheelchair dependent, Depression who presented to the ER with L knee pain / L leg pain after he had fallen off of his wheelchair. Patient had an evaluation by Dr. Kwok (Orthopedic surgery) who recommended no intervention. Dr. Perera (Vascular surgery) was called on consultation. Patient was also found to have a urinary tract infection and was s tarted on broad-spectrum antibiotics. On 02/19, patient experienced a cardiac arrest from hypoxemia and was found to be hypotensive. Patient was transferred to ICU after resuscitation. He was intubated and had a central line placed. Patient required pressor support and ventilatory support. Patient was treated for septic shock and possibly experienced a cardiac event given his elevation in troponin, high suspicion for NSTEMI. Throughout intensive care stay patient's pressors were tapered off and patient was ultimately extubated on 02/23/2018. He was transferred to the service of hospitalist team on 02/24/2018. Patient was seen and examined at the bedside. Currently patient has no new complaints. He denies any chest pain, shortness of breath or palpitations. Denies nausea or vomiting. Denies any abdominal pain. Has been having loose stools but denies any frequent bowel movements. Objective: Vitals (See below) General: Lying in bed, no acute distress, comfortable, AAOx3 HEENT: NC, AT CVS: RRR, +S1S2 Lungs: Poor inspiratory effort bilaterally, auscultation status appeared to reveal any wheezing, rales or rhonchi Abdomen: Soft, ND, NT, morbid obesity Extremities: - Edema, - Calf tenderness, left leg in dressing Assessment and plan: Critical illness myopathy - c/w PT / OT - Looking in ALE placement s/p Ventilator dependent respiratory failure / Hypercapnic respiratory failure - Chronic hypercarbic respiratory / Obesity hypoventilation syndrome - Chronically elevated right hemidiaphragm - Has been weaning off supplemental oxygen - s/p Corticosteroids Elevated troponin - likely 2/2 demand ischemia 2/2 septic shock; less likely 2/2 NSTEMI - Currently not experiencing any chest pain, palpitations or SOB - Troponin have improved - c/w telemetry monitoring - c/w Carvedilol; Atorvastatin; ASA - Cardiology on consultation s/p A. fib with RVR - rate / rhythm controlled with Amiodarone - hold on full anticoagulation given poor platelet count - Cardiology on consultation s/p Septic shock - likely 2/2 Skin & soft tissue infection and Urinary tract infection - See below Left lower extremity acute wound infection on chronic non-healing ulcers - Initially presented to the hospital because of left leg pain - Physical with chronic wound changes - Leukocytosis resolved; Lactic acidosis improved - Blood cultures 02/18: No growth at 5 days - Wound culture 02/18: Polymicrobial (Pseudomonas, Klebsiella, Streptococcus group C, Corynebacterium species, MRSA) - s/p antibiotic therapy Chronic fracture of left leg - CT imaging noted - Orthopedic surgery on consult; appreciate their input; - Will have outpatient f/u with Vascular surgery - patient is a poor surgical candidate; will await resolution of acute illnesses before pursing further surgery s/p Urinary tract infection - Urine culture 02/18: Citrobacter Amalonaticus #2 - c/w above antibiotics Normocytic anemia - Hg appears stable - Will continue to monitor Thrombocytopenia - possibly 2/2 illness, possibly 2/2 anti-platelet therapy - No bleeding episodes noted - Counts have trended down - HIT antibody workup negative - Will discontinue ASA Acute renal failure on CKD3; s/p Oliguria - c/w HD; however possibly not dialysis dependent - Will continue to monitor renal function - Nephrology (Dr. Lovell) on consultation; will continue with HD as needed s/p Hypocalcemia Electrolyte abnormalities - Will supplement K and Mg Elevated bilirubin - US abdomen 02/25: Cholelithiasis. Fatty infiltration of the liver. Multiple right renal cysts. s/p Transaminitis - likely 2/2 shocked liver 2/2 hypotension Alcohol dependence - No withdrawal symptoms - c/w Thiamine, Folate, MVI Depression - c/w Fluoxetine GI prophylaxis - c/w Protonix DVT prophylaxis - c/w SCDs Disposition: - Awaiting progression with PT/OT - Looking in ALE placement VS,Fishbone, I+O VS, Fishbone, I+O Laboratory Tests 03/11/18 06:17 Red Blood Count 2.64 L, Mean Corpuscular Volume 99.6 H, Mean Corpuscular Hemoglobin 31.4, Mean Corpuscular Hemoglobin Concent 31.6 L, Red Cell Distribution Width 14.5, Calcium Level 7.2 L, Aspartate Amino Transf (AST/SGOT) 32, Alanine Aminotransferase (ALT/SGPT) 48, Alkaline Phosphatase 166 H, Total Bilirubin 0.8, Total Protein 6.6, Albumin 1.6 L Vital Signs Date Time Temp Pulse Resp B/P (MAP) Pulse Ox O2 Delivery O2 Flow Rate FiO2 03/11/18 06:31 79 118/64 03/11/18 06:00 99.7 20 92 Room Air I&O- Last 24 Hours up to 6 AM 03/11/18 06:00 Intake Total 780 ml Output Total 250 ml Balance 530 ml KEE GROSS MD Mar 11, 2018 12:44
[2018-03-11 14:00] VITALS: BP 112/59
[2018-03-11 18:00] VITALS: BP 117/59
[2018-03-11] MEDS: PERCOCET 5MG/325MG TAB PO PRN (18:45)
[2018-03-11] MEDS: traZODone 100 MG TAB PO SCH (21:01)
[2018-03-11] MEDS: ATORVASTATIN 20 MG TAB PO SCH (21:01)
[2018-03-11 22:00] VITALS: BP 124/88
[2018-03-12] MEDS: CARVedilol 6.25 MG TAB PO SCH ×3 (00:22→11:12)
[2018-03-12 02:00] VITALS: BP 111/55
[2018-03-12] MEDS: SLF 3 ML SYR IV SCH ×3 (05:56→20:58)
[2018-03-12] MEDS: FOLIC ACID 1 MG TAB PO SCH (05:56)
[2018-03-12] MEDS: MULTIVITAMINS/MINERALS THERAP 1 TAB PO SCH (05:56)
[2018-03-12] MEDS: guaiFENesin ER 600 MG TAB PO SCH ×2 (05:56→20:57)
[2018-03-12] MEDS: FLUoxetine 20 MG CAP PO SCH (05:56)
[2018-03-12] MEDS: PREGABALIN 100 MG CAP (LYRICA) PO SCH ×2 (05:57→20:57)
[2018-03-12] MEDS: PANTOPRAZOLE 40MG TAB (PROTONIX) PO SCH (05:57)
[2018-03-12] MEDS: EUCERIN 120GM CREAM TOP SCH ×2 (05:58→20:59)
[2018-03-12] MEDS: NYSTATIN 100,000 UNITS/GM TOPICAL PWD 15 GM TOP SCH ×2 (05:58→20:59)
[2018-03-12] MEDS: CLOBETASOL PROP 0.05% OINT 30 GM TOP SCH ×2 (05:59→20:58)
[2018-03-12 06:00] VITALS: BP 100/57
[2018-03-12] MEDS: AMIODARONE 200 MG TAB (PACERONE) PO SCH ×2 (06:03→20:57)
[2018-03-12 06:15] LABS: HEMATOCRIT 26.7 % (42.0-52.0); HEMOGLOBIN 8.5 g/dl (13.5-17.5); MEAN CORPUSCULAR HEMOGLOBIN 31.5 pg (27.0-33.0); MEAN CORPUSCULAR HGB CONC 31.8 g/dl (32.0-36.5); MEAN CORPUSCULAR VOLUME 98.9 fl (80.0-96.0); WHITE BLOOD COUNT 4.7 10^3/uL (4.0-10.0)
[2018-03-12 06:17] LABS: PLATELET COUNT, AUTOMATED 54 10^3/uL (150-450)
[2018-03-12 06:47] LABS: ALBUMIN 1.5 GM/DL (3.2-5.2); BILIRUBIN,TOTAL 1.2 MG/DL (0.2-1.0); CALCIUM LEVEL 7.1 MG/DL (8.8-10.2); CREATININE FOR GFR 5.56 MG/DL (0.70-1.30); GLOMERULAR FILTRATION RATE 11.2 (>49); TOTAL PROTEIN 6.6 GM/DL (6.4-8.2)
[2018-03-12 10:00] VITALS: BP 82/50
--- NOTE | 2018-03-12 10:51 | IPNPDOC ---
Date Seen The patient was seen on 03/12/18. Progress Note Subjective: Patient is a 62 year old male with a PMHx of HTN, PAD, Venous stasis ulcers, Chronic L Leg ulceration (follows w/ Dr. Perera), Morbid obesity, Chronic back pain / Spinal cord injury (2001) / Wheelchair dependent, Depression who presented to the ER with L knee pain / L leg pain after he had fallen off of his wheelchair. Patient had an evaluation by Dr. Kwok (Orthopedic surgery) who recommended no intervention. Dr. Perera (Vascular surgery) was called on consultation. Patient was also found to have a urinary tract infection and was started on broad-spectrum antibiotics. On 02/19, patient experienced a cardiac arrest from hypoxemia and was found to b e hypotensive. Patient was transferred to ICU after resuscitation. He was intubated and had a central line placed. Patient required pressor support and ventilatory support. Patient was treated for septic shock and possibly experienced a cardiac event given his elevation in troponin, high suspicion for NSTEMI. Throughout intensive care stay patient's pressors were tapered off and patient was ultimately extubated on 02/23/2018. He was transferred to the service of hospitalist team on 02/24/2018. Patient was seen and examined at the bedside. He states that he would like to be repositioned as his bottom has sores on it and they are causing pain. He denies nausea, vomiting, abdominal pain, chest pain. He is still contemplating about having his left leg amputated. Objective: Vitals (See below) General: Lying in bed, no acute distress, comfortable, AAOx3 HEENT: NC, AT CVS: RRR, +S1S2 Lungs: Poor inspiratory effort bilaterally, auscultation status appeared to reveal any wheezing, rales or rhonchi Abdomen: Soft, ND, NT, morbid obesity Extremities: - Edema, - Calf tenderness, left leg in dressing Assessment and plan: Critical illness myopathy - c/w PT / OT - Looking in ALE placement s/p Ventilator dependent respiratory failure / Hypercapnic respiratory failure - Chronic hypercarbic respiratory / Obesity hypoventilation syndrome - Chronically elevated right hemidiaphragm - Has been weaning off supplemental oxygen - s/p Corticosteroids Elevated troponin - likely 2/2 demand ischemia 2/2 septic shock; less likely 2/2 NSTEMI - Currently not experiencing any chest pain, palpitations or SOB - Troponin have improved - c/w telemetry monitoring - c/w Carvedilol; Atorvastatin - d/c ASA due to worsening thrombocytopenia - Cardiology on consultation s/p A. fib with RVR - rate / rhythm controlled with Amiodarone - hold on full anticoagulation given poor platelet count - Cardiology on consultation s/p Septic shock - likely 2/2 Skin & soft tissue infection and Urinary tract infection - See below Left lower extremity acute wound infection on chronic non-healing ulcers - Initially presented to the hospital because of left leg pain - Physical with chronic wound changes - Leukocytosis resolved; Lactic acidosis improved - Blood cultures 02/18: No growth at 5 days - Wound culture 02/18: Polymicrobial (Pseudomonas, Klebsiella, Streptococcus group C, Corynebacterium species, MRSA) - s/p antibiotic therapy Chronic fracture of left leg - CT imaging noted - Orthopedic surgery on consult; appreciate their input; - Will have outpatient f/u with Vascular surgery - patient is a poor surgical candidate; will await resolution of acute illnesses before pursing further surgery s/p Urinary tract infection - Urine culture 02/18: Citrobacter Amalonaticus #2 - s/p antibiotics Normocytic anemia - Hg appears stable - Will continue to monitor Thrombocytopenia - possibly 2/2 illness, possibly 2/2 anti-platelet therapy - No bleeding episodes noted - Counts have trended down - HIT antibody workup negative - d/c ASA Acute renal failure on CKD3; s/p Oliguria - c/w HD; however possibly not dialysis dependent - Will continue to monitor renal function - Nephrology (Dr. Lovell) on consultation; will continue with HD as needed - d/c Anderson catheter s/p Hypocalcemia - corrected calcium 9.1 Elevated bilirubin - US abdomen 02/25: Cholelithiasis. Fatty infiltration of the liver. Multiple right renal cysts. s/p Transaminitis - likely 2/2 shocked liver 2/2 hypotension Alcohol dependence - No withdrawal symptoms - c/w Thiamine, Folate, MVI Depression - c/w Fluoxetine GI prophylaxis - c/w Protonix DVT prophylaxis - c/w SCDs Disposition: - Awaiting progression with PT/OT - Looking in ALE placement VS, I&O, 24H, Fishbone Vital Signs/I&O Vital Signs Date Time Temp Pulse Resp B/P (MAP) Pulse Ox O2 Delivery O2 Flow Rate FiO2 03/12/18 06:00 97.9 79 20 100/57 (71) 93 Room Air I&O- Last 24 Hours up to 6 AM 03/12/18 06:00 Intake Total 1380 ml Output Total 250 ml Balance 1130 ml Laboratory Data 24H LABS Laboratory Tests 2 03/12/18 05:44: Nucleated Red Blood Cells % (auto) 0.0, Anion Gap 8, Glomerular Filtration Rate 11.2L, Blood Urea Nitrogen 40H, Creatinine 5.56H, Sodium Level 133L, Potassium Level 4.0, Chloride Level 98, Carbon Dioxide Level 27, Calcium Level 7.1L, Aspartate Amino Transf (AST/SGOT) 25, Alanine Aminotransferase (ALT/SGPT) 41, Alkaline Phosphatase 176H, Total Bilirubin 1.2H, Total Protein 6.6, Albumin 1.5L, Albumin/Globulin Ratio 0.29L CBC/BMP Laboratory Tests 03/12/18 05:44 Red Blood Count 2.70 L, Mean Corpuscular Volume 98.9 H, Mean Corpuscular Hemoglobin 31.5, Mean Corpuscular Hemoglobin Concent 31.8 L, Red Cell Distribution Width 14.4, Calcium Level 7.1 L, Aspartate Amino Transf (AST/SGOT) 25, Alanine Aminotransferase (ALT/SGPT) 41, Alkaline Phosphatase 176 H, Total Bilirubin 1.2 H, Total Protein 6.6, Albumin 1.5 L Microbiology Microbiology 03/10/18 Clostridium difficile (PCR) - Final, Complete CARMINE COCHRAN DO Mar 12, 2018 10:51
[2018-03-12] MEDS ORDERED: HEPARIN 1,000 UNITS/ML 10ML VIAL (FOR RADIOLOGY& DIALYSIS ONLY) XX ONE (12:15)
--- NOTE | 2018-03-12 15:16 | IPNPDOC ---
Text Note Date of Service The patient was seen on 03/12/18. NOTE Subjective: Patient was examined at bedside, he complained of L leg pain. He denies SOB at rest. No chest pain, no abdominal pain. He was seen in the AM at bedside and he was seen again in the afternoon on dialysis. There was some oozing present from his permacath site. Objective PHYSICAL EXAMINATION: VITALS See Below GENERAL APPEARANCE: Morbidly obese gentleman, laying comfortably bed, with legs elevated with a pillow, in no apparent distress Neck: mild JVD, RIJ permacath with oozing blood on dressing LUNGS: No wheezing, no rhonchi, clear air entry, diminished breath sounds due to patient's body habitus HEART: S1 and S2 is present,regular rate and rhythm, no rubs ABDOMEN: Obese abdomen, soft, no palpable organomegaly. Large pannus with some induration. Extremity; no edema, bilateral legs wrapped and wound dressing. Genitourinary : indwelling gonsalves Labs See Below PROBLEMS: 1. Oliguric renal failure, dialysis dependent. No signs of renal recovery at present. Brisk rise in interdialytic creatinine. Urine output average 200-300cc per day. Discontinue gonsalves catheter due to risk of CAUTI. He is seen on dialysis today tolerating his treatment with goal removal of 2L. He is receiving heparin free dialysis given thrombocytopenia. 2. Atrial fibrillation. BP was soft this AM. I advise to reduce the coreg dose to 3.125mg from prior 6.25mg. His HR is controlled. He also does have occasional hypotension of hemodialysis. 3. Thrombocytopenia., Platelets continue to decline, patient has had workup to rule out heparin-induced thrombocytopenia. Primary team has held ASA. We are not using any systemic heparin with his dialysis. 4. Anemia, secondary to kidney disease. Continues with Aranesp with dialysis. Hgb is suboptimal but stable. He can be transfused as needed. Iron stores are pending. 5. Generalized weakness and deconditioning secondary to body habitus, critical illness, and chronic L leg fracture. will require rehab at discharge VS,Connie, I+O VS, Connie, I+O Laboratory Tests 03/12/18 05:44 Red Blood Count 2.70 L, Mean Corpuscular Volume 98.9 H, Mean Corpuscular Hemoglobin 31.5, Mean Corpuscular Hemoglobin Concent 31.8 L, Red Cell Distribution Width 14.4, Calcium Level 7.1 L, Aspartate Amino Transf (AST/SGOT) 25, Alanine Aminotransferase (ALT/SGPT) 41, Alkaline Phosphatase 176 H, Total Bilirubin 1.2 H, Total Protein 6.6, Albumin 1.5 L Vital Signs Date Time Temp Pulse Resp B/P (MAP) Pulse Ox O2 Delivery O2 Flow Rate FiO2 03/12/18 10:00 97.4 73 17 82/50 (61) 94 Room Air I&O- Last 24 Hours up to 6 AM 03/12/18 06:00 Intake Total 1380 ml Output Total 250 ml Balance 1130 ml GME ATTESTATION GME ATTESTATION My faculty preceptor for this patient encounter was physically present during the encounter and was fully available. All aspects of the patient interview, examination, medical decision making process, and medical care plan development were reviewed and approved by the faculty preceptor. The faculty preceptor is aware and concurs with the plan as stated in the body of this note and will attest to such by his/her cosignature. STEVEN OVERTON DO Mar 12, 2018 15:16 ALIE GLYNN DO Mar 12, 2018 20:37
[2018-03-12 15:21] VITALS: BP 105/68
[2018-03-12] MEDS: CARVedilol 3.125 MG TAB PO SCH ×2 (17:28→23:33)
[2018-03-12 18:00] VITALS: BP 132/64
--- NOTE | 2018-03-12 19:24 | IPN ---
DATE: 03/11/2018 SUBJECTIVE: The patient is seen and examined this morning at the bedside. He has no new complaints. Reports an uneventful overnight course, has been tolerating hemodialysis treatments without issues. He remains oliguric with on average around 200 mL of urine per day. He denies any shortness of breath at rest and reports he has not gotten out of bed. VITAL SIGNS: Temperature 98.2, pulse 78, respiratory rate 20, blood pressure 117/59, saturating 95% on room air. Intake yesterday was 980. Urine output yesterday was 200, net positive 780. Weight in the bed scale today is not recorded. GENERAL: The patient is seen lying in bed morbidly obese, appears older than stated age, in no acute distress, awake, alert and oriented times 3. Jugular veins are unable to be assessed secondary to body habitus. There is a right-sided PermCath. CARDIAC: S1, S2, regular rate and rhythm. LUNGS: Distant breath sounds secondary to body habitus. There is no accessory muscle use or tachypnea. There is no wheeze. He is comfortable on room air. ABDOMEN: Soft, obese and nontender. There are bowel sounds. GENITOURINARY (): Shows Anderson catheter with just a little bit of urine. EXTREMITIES: The left leg has significant swelling along with the left foot as well and there are dressings on the left. The right lower extremity is without edema. NEUROLOGIC: He is oriented, interactive and conversational. PSYCHIATRIC: Depressed. LABORATORY: Sodium 136, potassium 3.4, bicarbonate 27, glucose 101, magnesium 1.6, hemoglobin 8.3, platelets 63. INPATIENT MEDICATIONS REVIEWED BY MYSELF: He received a gram of magnesium sulfate today. His aspirin is noted to be stopped per the primary team. He received a dose of potassium 40 mEq times one. The remainder of medications are unchanged from prior. PROBLEMS: 1. Oligo-anuric acute renal failure superimposed on chronic kidney disease (CKD), stage III. Oliguric renal failure within the setting of cardiac arrest and septic shock. He remains hemodialysis dependent. There is a brisk rise in interdialytic creatinine and his urine output remains only around 200 mL per day. He has a PermCath in place. Next dialysis treatment will be on Monday and he is tolerating his treatments without issue. Given his thrombocytopenia, the patient is receiving heparin free dialysis. His electrolytes are acceptable. He received supplementation of potassium and magnesium today. 2. Macrocytic anemia. Hemoglobin is suboptimal, but stable in the 8s. He continues on Aranesp and I will check an iron panel. 3. Atrial fibrillation. The patient continues on amiodarone and carvedilol; in view of this thrombocytopenia he is not on full anticoagulation. 4. Morbid obesity, generalized weakness and deconditioning, chronic fracture of left leg, left lower extremity wound infection. The patient has completed a course of antimicrobial therapy and continues with the wound care as per the primary team. He will require rehabilitation. ANU
[2018-03-12] MEDS: traZODone 100 MG TAB PO SCH (20:57)
[2018-03-12] MEDS: ATORVASTATIN 20 MG TAB PO SCH (20:57)
[2018-03-12 22:00] VITALS: BP 129/62
[2018-03-12] MEDS: PERCOCET 5MG/325MG TAB PO PRN (23:33)
[2018-03-13 02:00] VITALS: BP 127/60
[2018-03-13 05:52] LABS: HEMATOCRIT 25.3 % (42.0-52.0); MEAN CORPUSCULAR HEMOGLOBIN 31.9 pg (27.0-33.0); MEAN CORPUSCULAR HGB CONC 31.6 g/dl (32.0-36.5); MEAN CORPUSCULAR VOLUME 100.8 fl (80.0-96.0); RED BLOOD COUNT 2.51 10^6/uL (4.30-6.10); WHITE BLOOD COUNT 3.9 10^3/uL (4.0-10.0)
[2018-03-13 06:00] VITALS: BP 122/62
[2018-03-13 06:05] LABS: PLATELET COUNT, AUTOMATED 56 10^3/uL (150-450)
[2018-03-13 06:21] LABS: ALBUMIN 1.5 GM/DL (3.2-5.2); BILIRUBIN,TOTAL 0.8 MG/DL (0.2-1.0); CALCIUM LEVEL 7.5 MG/DL (8.8-10.2); CREATININE FOR GFR 3.66 MG/DL (0.70-1.30); GLOMERULAR FILTRATION RATE 18.1 (>49); PERCENT SATURATION 33.8 % (19.7-50.0); TOTAL PROTEIN 6.7 GM/DL (6.4-8.2)
[2018-03-13] MEDS: SLF 3 ML SYR IV SCH ×3 (06:30→20:46)
[2018-03-13] MEDS: CARVedilol 3.125 MG TAB PO SCH ×4 (06:30→23:17)
[2018-03-13] MEDS: guaiFENesin ER 600 MG TAB PO SCH ×2 (07:44→20:45)
[2018-03-13] MEDS: PREGABALIN 100 MG CAP (LYRICA) PO SCH ×2 (07:44→20:45)
[2018-03-13] MEDS: MULTIVITAMINS/MINERALS THERAP 1 TAB PO SCH (07:44)
[2018-03-13] MEDS: PANTOPRAZOLE 40MG TAB (PROTONIX) PO SCH (07:44)
[2018-03-13] MEDS: AMIODARONE 200 MG TAB (PACERONE) PO SCH ×2 (07:44→20:45)
[2018-03-13] MEDS: FLUoxetine 20 MG CAP PO SCH (07:44)
[2018-03-13] MEDS: FOLIC ACID 1 MG TAB PO SCH (07:44)
[2018-03-13] MEDS: EUCERIN 120GM CREAM TOP SCH ×2 (09:28→20:46)
[2018-03-13] MEDS: NYSTATIN 100,000 UNITS/GM TOPICAL PWD 15 GM TOP SCH ×2 (09:28→20:45)
[2018-03-13] MEDS: CLOBETASOL PROP 0.05% OINT 30 GM TOP SCH (09:29)
[2018-03-13 10:00] VITALS: BP 118/56
[2018-03-13 13:21] LABS: MAGNESIUM LEVEL 1.8 MG/DL (1.8-2.4)
[2018-03-13 14:00] VITALS: BP 112/60
[2018-03-13] MEDS ORDERED: CLOBETASOL PROP 0.05% OINT 30 GM TOP PRN (14:45)
--- NOTE | 2018-03-13 14:50 | IPNPDOC ---
Date Seen The patient was seen on 03/13/18. Progress Note SUBJECTIVE: Patient is a 62-year-old male with fall for which he was evaluated by orthopedic surgery and determined that no intervention was required. Chronic left lower extremity wound and chronic indwelling Anderson catheter with both revealing microbial activity. Patient started on a ntibiotics. Patient was found unresponsive microbiology analyst of 02/19/2018. He underwent for cardiopulmonary resuscitative events with successful return of spontaneous circulation obtained after each event. Patient was intubated, mechanically ventilated, and placed on three pressors. Elevated troponin without ST elevation possibly secondary to demand ischemia. Poor renal perfusion with anuria requiring hemodialysis. Successfully extubated on 02/24/2018 and transferred to hospitalist service. Patient is evaluated at bedside this morning. He remains admitted in the medical-surgical unit. He has open and bleeding wounds on his bottom that cause him pain. He denies nausea, vomiting, abdominal pain, shortness of breath, chest pain. He understands that his hospital course will be prolonged and that he needs to continue working with physical and occupational therapy in order to be independent with transfers. OBJECTIVE PHYSICAL EXAMINATION: VITAL SIGNS: Please see below. GENERAL: Morbidly obese male, alert and conversant, appropriately dressed in hospital attire, in no acute distress. HEENT: Atraumatic, normocephalic, PERRL, EOMI, oral mucosa appears pink and moist, nasal septum appears midline, nares are patent, dentition is poor. CARDIOVASCULAR: Regular heart rate and rhythm, normal S1 and S2, no audible murmur, rub, click, almost resolved scar from prior resuscitative pad burn on anterior central chest, significantly improved erythematous flat confluent appearing rash on anterior chest, Perm-A-Cath noted on right sided anterior chest, dressing is clean, dry, and intact. RESPIRATORY: Limited exam secondary to body habitus, clear to auscultation bilaterally, adequate inspiratory and expiratory airway excursion, symmetric airway entry, no audible focal consolidations, no wheeze, rhonchi, crackles. ABDOMINAL: Morbid, soft, nondistended, nontender to palpation, bowel sounds appreciated throughout, no apparent guarding or rebound, difficult to assess organomegaly due to body habitus. EXTREMITIES: Left lower extremity is wrapped in OptiLock and Coban, dressing change during evaluation, wounds appear improved, granulation tissue noted n wound bases, dry skin appreciated, chronic venous stasis noted on bilateral lower extremities, +1 pitting peripheral edema on bilateral lower extremities, no clubbing, no cyanosis. NEUROLOGICAL: No focal neurological deficits. PSYCHOLOGICAL: Mood and affect appear appropriate. LABORATORY DATA, IMAGING STUDIES, MICROBIOLOGY: Please see below. Right complete shoulder x-ray on 02/28/2018 - no acute fracture or dislocation. Abdominal flat plate x-ray on 03/02/2018 - hold normal caliber colon, no evidence of obstruction, degenerative changes and left hip and lumbar spine. Left lower extremity arterial ultrasound on 03/03/2018 - unable to obtain ANTHONY or Doppler measurements due to ulcer; normal triphasic waveforms and normal velocities from other lower extremity arteries; no evidence of arterial stenosis. Limited abdominal ultrasound on 03/10/2018 - mild splenomegaly with a splenic index of 850 and the normal range less than 480, no discrete splenic mass, subcapsular hematoma or adjacent ascites, multiple renal cysts as described, similar to that seen on CT 2 years ago, no hydronephrosis. Echocardiogram: Left ventricular diastolic dysfunction, dilated right heart chambers with hypokinesis of right ventricular free wall, moderate pulmonary hypertension. DVT prophylaxis ordered?: TEDs, sequentials, knee high compression. ASSESSMENT AND PLAN: This is a 62-year-old male with multiple co- morbidities and a complicated hospital course that required intubation, mechanical ventilation, and pressor support. Multifactorial etiology. PROBLEMS: 1. Critical illness myopathy: Continues to make improvements with physical and occupational therapy. Patient may be out of bed to chair. Recommendations included continued rehabilitation after medical discharge. Patient and family services working towards placement for continued rehabilitation. Patient will continue with hemodialysis outpatient. Patient and family services have sent his patient information over to [facility]. 2. Acute renal failure superimposed on chronic kidney disease: Nephrology is consulted. Patient continues with hemodialysis secondary to an anuric/oliguric renal failure secondary to acute tubular necrosis. Hemodialysis removed 2 L on 03/12/2018. Patient is on Aranesp. Perm-A-Cath has been placed. Heparin ordered to flush catheter only. Prior GFR was 49.1. Renal recovery is possible. Will continue to monitor closely. Renal diet. Nepro supplementation ordered. Electrolyte management by hemodialysis and nephrology recommendations. Corrected calcium is 9.5. Patient may be discharged to rehabilitative unit when medically cleared and may continue hemodialysis for acute renal failure as an outpatient. 3. Pancytopenia: Leukopenia today. Worsening thrombocytopenia. No systemic Heparin. Aspirin has been discontinued. HIT positive, although DOLLY was negative. Re-ordered peripheral smear. Hemoglobin/hematocrit for 18:00. Prior peripheral smear obtained which revealed "Anemia with minimal macrocytosis and few circulating nucleated red blood cells, likely multifactorial. No abnormal immature leukocytes identified. Mild thrombocytopenia with essentially normal platelet morphology." Hypoproliferation as indicated by reticulocyte index. No signs of active bleeding. TEDs and sequentials with knee high compression. 4. Macrocytic anemia: Re-ordered peripheral smear. Iron studies appears to reveal anemia of chronic disease. Will check a vitamin B12 and folate level. 5. Acute hypercarbic hypoxic respiratory failure: Required intubation and mechanical ventilation. Successfully extubated. Patient is currently saturating 92% on room air. This is appropriate. Continue Acapella. 6. New onset atrial fibrillation with rapid ventricular response: Patient converted to normal sinus rhythm. Cardiology consulted. Continue Amiodarone 200mg by mouth thrice daily. Decreased Carvedilol to 3.125mg by mouth every 6 hours with hold parameters and Lipitor 40mg by mouth nightly. Patient may benefit from cardiac evaluation with angiography; however, patient remains on hemodialysis and has a thrombocytopenia so further invasive cardiac evaluation is on hold for the time being. 7. Elevated troponin with lactic acidosis: Likely secondary to demand ischemia from hypoperfusion that required extensive pressor support. Echocardiogram obtained as resulted above. Cardiology consulted with recommendations for possible further cardiac intervention once patient is stabilized from a medical standpoint, if possible. Aspirin has been discontinued due to worsening platelet function. No nephrotoxic agents given acute tubular necrosis and currently requiring hemodialysis. Continue Atorvastatin. Continue with beta- geri. 8. Shock liver: Resolved. Continue statin therapy. 9. Possible acute occult fracture of left knee: Orthopedics initially consulted. Recommended vascular surgery consultation. No surgical intervention secondary to patient's significant comorbidities. Patient may be weightbearing as tolerated, per updated orthopedic recommendations. Left lower extremity arterial Doppler ultrasound obtained. Limited secondary to ulcer on posterior aspect of left lo wer leg; however, no arterial stenosis noted in other arteries of the left lower extremity. Patient may use orthopedic brace. Discussed left lower extremity amputation (as has been discussed with patient previously). Continue with physical and occupational therapy. 10. 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 Wound bases are clean and non-malodorous. Completed a ten-day course of antibiotic therapy. Blood cultures negative. Dressing changes with OptiLock, Kerlix, and Coban. 11. CAUTI: Likely result of chronic indwelling Anderson catheter. Anderson catheter has been removed. No urinary complaints. Bladder scans ordered. Completed 10- day antibiotic course. 12. Alcohol dependence: Patient has significant alcohol history. No withdrawal symptoms during hospital course. Have started Folic acid and Multivitamin. No need for Benzodiazepine at this time. 13. Depression: Continue with Fluoxetine. 14. Dermatitis: Resolved. Continue with Clobetasol twice daily as needed for 4 weeks. DISPOSITION: Continue physical and occupational therapy. Continue hemodialysis. Prolonged hospital course. Potential transfer to rehabilitative unit once patient is able to transfer independently into wheelchair. VS, I&O, 24H[facility] Vital Signs/I&O Vital Signs Date Time Temp Pulse Resp B/P (MAP) Pulse Ox O2 Delivery O2 Flow Rate FiO2 03/13/18 14:00 98.2 71 16 112/60 (77) 95 Room Air I&O- Last 24 Hours up to 6 AM 03/13/18 06:00 Intake Total 900 ml Output Total 2300 ml Balance -1400 ml Laboratory Data 24H LABS Laboratory Tests 2 03/13/18 05:32: Nucleated Red Blood Cells % (auto) 0.0, Immature Platelet Fraction 2.0, Anion Gap 5L, Glomerular Filtration Rate 18.1L, Blood Urea Nitrogen 22H, Creatinine 3 .66H, Sodium Level 134L, Potassium Level 4.0, Chloride Level 100, Carbon Dioxide Level 29, Calcium Level 7.5L, Aspartate Amino Transf (AST/SGOT) 23, Alanine Aminotransferase (ALT/SGPT) 34, Alkaline Phosphatase 142H, Total Bilirubin 0.8, Total Protein 6.7, Albumin 1.5L, Magnesium Level 1.8, Iron Level 47L, Total Iron Binding Capacity 139L, Transferrin % Saturation 33.8, Ferritin 266, Albumin/Globulin Ratio 0.29L CBC/BMP Laboratory Tests 03/13/18 05:32 Red Blood Count 2.51 L, Mean Corpuscular Volume 100.8 H, Mean Corpuscular Hemoglobin 31.9, Mean Corpuscular Hemoglobin Concent 31.6 L, Red Cell Distribution Width 14.6 H, Calcium Level 7.5 L, Aspartate Amino Transf (AST/SGO T) 23, Alanine Aminotransferase (ALT/SGPT) 34, Alkaline Phosphatase 142 H, Total Bilirubin 0.8, Total Protein 6.7, Albumin 1.5 L Microbiology Microbiology 03/10/18 Clostridium difficile (PCR) - Final, Complete CARMINE COCHRAN DO Mar 13, 2018 14:50
[2018-03-13 17:42] VITALS: BP 119/57
[2018-03-13 18:21] LABS: HEMOGLOBIN 8.3 g/dl (13.5-17.5)
[2018-03-13 18:54] LABS: FOLATE > 24.0 NG/ML (>5.4)
[2018-03-13] MEDS: ATORVASTATIN 20 MG TAB PO SCH (20:45)
[2018-03-13] MEDS: traZODone 100 MG TAB PO SCH (20:45)
--- NOTE | 2018-03-13 20:45 | IPN ---
DATE: 03/13/2018 SUBJECTIVE: Rocio is seen and examined this morning at the bedside. He denies any acute overnight events or issues. His Anderson catheter was removed yesterday. He reports that he is voiding to the urinal. Actually, it looks like his urine output is increasing, which I was both surprised and pleased to see. He tolerated dialysis well yesterday with two liters of fluid removed. He reports today with physical therapy, he, with great difficulty, sat at the edge of the bed. VITAL SIGNS: Temperature 98.0, pulse 72, respiratory rate 16, blood pressure 119/57, saturating 94% on room air. Intake yesterday was 1180, dialysis yesterday removed 2000 mL. Urine output yesterday was 450. Urine output recorded today was 625. Weight on the bed scale today was 166.6 kg. General: The patient is seen lying in bed, morbidly obese male, in no acute distress. Extraocular muscles are intact. Tongue is moist. Jugular veins are not elevated. There is a right internal jugular (IJ) tunneled PermCath with a clean dressing. Cardiac: Irregularly irregular, S1, S2. Lungs: There is expiratory rhonchus bilaterally. There is no accessory muscle or tachypnea. He is comfortable on room air. The abdomen is soft, obese, and nontender. Genitourinary: The Anderson catheter has been removed. Extremities: The left leg has significant swelling from the foot to the knee, and there are dressings on the left and the right lower extremity has no overt pitting edema. Neurologic: He is oriented, interactive, and conversational. Psychiatric: He appears depressed. LABORATORY: Sodium 134, potassium 4.0, bicarbonate 29, BUN 22, transferrin saturation 33%. Hemoglobin 8.3, platelets 56. INPATIENT MEDICATIONS: Reviewed by myself and no change from prior. PROBLEMS: 1. Oligo-anuric acute renal failure superimposed on chronic kidney disease stage III. His renal failure was in the setting of cardiac arrest and septic shock. Actually, now he looks like he is converting to a non-oliguric renal failure. His urine output thus far today is 600 mL. It looks like his urine output is increasing as compared to previous. However, at present, he still remains hemodialysis dependent. We will continue to monitor for further signs of renal recovery. His next dialysis treatment will be tomorrow with goal fluid removal of 2-3 liters as tolerated by hemodynamics. Given his thrombocytopenia, the patient is receiving heparin-free dialysis. His electrolytes are acceptable, and his PermCath is in good use. 2. Anemia. Hemoglobin is suboptimal but stable in the 8s. It looks like he is actually heading towards some pancytopenia. His white count has been down trending, and he is thrombocytopenic as well. In terms of the anemia, his transferrin saturation is acceptable at 33%, and he continues on Aranesp with dialysis. He can be transfused for a hemoglobin less than 8. 3. Thrombocytopenia. His aspirin was discontinued. He is not receiving any systemic heparin with dialysis. His platelet count has been hovering around 50,000 to 60,000 for the past 3 days. HIT antibody was positive but serotonin release assay was negative. Further management per the primary team. 4. Atrial fibrillation, status post rapid ventricular response (RVR). The patient's rate remains controlled with a decreased dose of carvedilol and he has not had anymore hypotensive episodes. He also continues on amiodarone. His potassium and magnesium are optimized. 5. Morbid obesity, generalized weakness and deconditioning, chronic fracture of the left leg, critical illness myopathy, and left lower extremity wound infection complicates his care and patient continues with physical therapy. He is making very slow progress and will need considerable rehabilitation managed per the primary team.
[2018-03-13 22:00] VITALS: BP 130/63
[2018-03-14 02:00] VITALS: BP 139/71
[2018-03-14] MEDS: PREGABALIN 100 MG CAP (LYRICA) PO SCH ×2 (05:47→21:20)
[2018-03-14] MEDS: MULTIVITAMINS/MINERALS THERAP 1 TAB PO SCH (05:47)
[2018-03-14] MEDS: CARVedilol 3.125 MG TAB PO SCH ×4 (05:47→23:49)
[2018-03-14] MEDS: FLUoxetine 20 MG CAP PO SCH (05:47)
[2018-03-14] MEDS: PERCOCET 5MG/325MG TAB PO PRN ×2 (05:48→14:17)
[2018-03-14] MEDS: guaiFENesin ER 600 MG TAB PO SCH ×2 (05:48→21:20)
[2018-03-14] MEDS: FOLIC ACID 1 MG TAB PO SCH (05:48)
[2018-03-14] MEDS: PANTOPRAZOLE 40MG TAB (PROTONIX) PO SCH (05:48)
[2018-03-14] MEDS: SLF 3 ML SYR IV SCH ×3 (05:49→21:21)
[2018-03-14] MEDS: AMIODARONE 200 MG TAB (PACERONE) PO SCH ×2 (05:51→21:20)
[2018-03-14 06:00] VITALS: BP 140/68
[2018-03-14 06:01] LABS: HEMOGLOBIN 7.8 g/dl (13.5-17.5); MEAN CORPUSCULAR HEMOGLOBIN 30.8 pg (27.0-33.0); MEAN CORPUSCULAR HGB CONC 31.2 g/dl (32.0-36.5); MEAN CORPUSCULAR VOLUME 98.8 fl (80.0-96.0); RED BLOOD COUNT 2.53 10^6/uL (4.30-6.10); WHITE BLOOD COUNT 3.4 10^3/uL (4.0-10.0)
[2018-03-14 06:04] LABS: PLATELET COUNT, AUTOMATED 57 10^3/uL (150-450)
[2018-03-14 06:28] LABS: ALBUMIN 1.7 GM/DL (3.2-5.2); BILIRUBIN,TOTAL 0.8 MG/DL (0.2-1.0); CALCIUM LEVEL 7.4 MG/DL (8.8-10.2); CREATININE FOR GFR 4.69 MG/DL (0.70-1.30); GLOMERULAR FILTRATION RATE 13.6 (>49); TOTAL PROTEIN 6.7 GM/DL (6.4-8.2)
[2018-03-14] MEDS ORDERED: LIDOCAINE 1% SDV 5 ML VIAL SQ ONE (10:00)
[2018-03-14] MEDS ORDERED: HEPARIN 1,000 UNITS/ML 10ML VIAL (FOR RADIOLOGY& DIALYSIS ONLY) XX ONE (10:00)
[2018-03-14 12:21] LABS: INR 1.16; PROTHROMBIN TIME 14.9 SECONDS (12.1-14.4)
[2018-03-14 12:22] LABS: FIBRINOGEN 413 MG/DL (221-452); PARTIAL THROMBOPLASTIN TIME 33.2 SECONDS (25.4-37.6)
[2018-03-14 13:18] LABS: D-DIMER QUANT > 4000 ng/ml (<500)
[2018-03-14 13:30] VITALS: BP 141/75
[2018-03-14] MEDS: EUCERIN 120GM CREAM TOP SCH ×2 (14:15→21:21)
[2018-03-14] MEDS: NYSTATIN 100,000 UNITS/GM TOPICAL PWD 15 GM TOP SCH ×2 (14:15→21:21)
--- NOTE | 2018-03-14 16:08 | REP ---
CT chest without contrast: History: Pancytopenia. Rule out lymphoma. Comparison CT chest study is from January 16, 2009. CT findings: There is a right sided tunnel catheter in place with its tip in the superior vena cava. Mild discoid atelectatic or fibrotic changes are seen in the lung bases bilaterally. The right hemidiaphragm is elevated which is a chronic finding. No infiltrate is seen in the lung hayden. No hilar or mediastinal mass or adenopathy is appreciated on this noncontrast study. Gallstones are noted. No axillary or supraclavicular adenopathy is appreciated. Bone window settings show multiple fractures of the anterior ribs bilaterally. These appear to be healing. There is no visible pneumothorax or hemothorax. On the right, the fractured anterior ribs include rib numbers 2 through 6. On the left, nondisplaced subacute rib fractures are seen in rib numbers 2 through 6 as well. There is questionable buckling of several posterior thoracic ribs bilaterally. No sternal fracture is appreciated. Impression: Right-sided tunnel catheter. Multiple recent anterior and possibly posterior rib fractures noted bilaterally. Gallstones. Elevated right hemidiaphragm. No evidence of adenopathy. Electronically Signed by Catracho Santana MD 03/14/2018 05:18 P
--- NOTE | 2018-03-14 16:11 | REP ---
CT abdomen and pelvis without IV or oral contrast: History: Pancytopenia. Rule out lymphoma. Findings: Liver and spleen are homogeneous in texture. The spleen is mildly enlarged measuring 14 cm in greatest transverse dimension. No focal splenic lesion is seen. Opaque gallstones are visible in the gallbladder. No pancreatic abnormality is observed. There are one or two normal-sized portocaval lymph nodes in the upper abdomen. No evidence of upper abdominal or retroperitoneal adenopathy. There are cortical cysts in both kidneys along with some renal cortical atrophy. No hydronephrosis is seen. The largest cyst on the left measures 5.6 cm and that on the right 5.0 cm in greatest diameter. These are unchanged from comparison CT study May 24, 2016. A Anderson catheter is seen in the urinary bladder. No abdominal wall defect is seen. No pelvic mass or adenopathy is seen. Degenerative disc changes are noted in the lumbar spine. No bony destructive lesion is appreciated. Impression: No evidence of lymphadenopathy. Mild splenomegaly. Multiple bilateral renal cysts. Anderson catheter. Electronically Signed by Catracho Santana MD 03/14/2018 05:18 P
[2018-03-14 18:00] VITALS: BP 138/66
--- NOTE | 2018-03-14 19:16 | IPNPDOC ---
Date Seen The patient was seen on 03/14/18. Progress Note SUBJECTIVE: Patient is a 62-year-old male with fall for which he was evaluated by orthopedic surgery and determined that no intervention was required. Chronic left lower extremity wound and chronic indwelling Anderson catheter with both revealing microbial activity. Patient started on a ntibiotics. Patient was found unresponsive metrologist of 02/19/2018. He underwent for cardiopulmonary resuscitative events with successful return of spontaneous circulation obtained after each event. Patient was intubated, mechanically ventilated, and placed on three pressors. Elevated troponin without ST elevation possibly secondary to demand ischemia. Poor renal perfusion with anuria requiring hemodialysis. Successfully extubated on 02/24/2018 and transferred to hospitalist service. Patient is evaluated in hemodialysis this morning. Patient has been consented for blood transfusion due to low hemoglobin. He is pancytopenic. Denies active bleeding from any orifice. He continues to make progress with physical and occupational therapy. Denies fever, night sweats, chills, chest pain. OBJECTIVE PHYSICAL EXAMINATION: VITAL SIGNS: Please see below. GENERAL: Morbidly obese male, alert and conversant, appropriately dressed in hospital attire, in no acute distress. HEENT: Atraumatic, normocephalic, PERRL, EOMI, oral mucosa appears pink and moist, nasal septum appears midline, nares are patent, dentition is poor. CARDIOVASCULAR: Regular heart rate and rhythm, normal S1 and S2, no audible murmur, rub, click, almost resolved scar from prior resuscitative pad burn on anterior central chest, anterior chest rash has resolved Perm-A-Cath noted on right sided anterior chest with hemodialysis tubing attached. RESPIRATORY: Limited exam secondary to body habitus, clear to auscultation bilaterally, adequate inspiratory and expiratory airway excursion, symmetric air way entry, no audible focal consolidations, no wheeze, rhonchi, crackles. ABDOMINAL: Morbid, soft, nondistended, nontender to palpation, bowel sounds appreciated throughout, no apparent guarding or rebound, difficult to assess organomegaly due to body habitus. EXTREMITIES: Left lower extremity is wrapped in OptiLock and Coban, chronic venous stasis noted on bilateral lower extremities, +1 pitting peripheral edema on bilateral lower extremities, no clubbing, no cyanosis. NEUROLOGICAL: No focal neurological deficits. PSYCHOLOGICAL: Mood and affect appear appropriate. LABORATORY DATA, IMAGING STUDIES, MICROBIOLOGY: Please see below. Right complete shoulder x-ray on 02/28/2018 - no acute fracture or dislocation. Abdominal flat plate x-ray on 03/02/2018 - hold normal caliber colon, no eviden ce of obstruction, degenerative changes and left hip and lumbar spine. Left lower extremity arterial ultrasound on 03/03/2018 - unable to obtain ANTHONY or Doppler measurements due to ulcer; normal triphasic waveforms and normal velocities from other lower extremity arteries; no evidence of arterial st enosis. Limited abdominal ultrasound on 03/10/2018 - mild splenomegaly with a splenic index of 850 and the normal range less than 480, no discrete splenic mass, subcapsular hematoma or adjacent ascites, multiple renal cysts as described, similar to that seen on CT 2 years ago, no hydronephrosis. Echocardiogram: Left ventricular diastolic dysfunction, dilated right heart chambers with hypokinesis of right ventricular free wall, moderate pulmonary hypertension. DVT prophylaxis ordered?: TEDs, sequentials, knee high compression. ASSESSMENT AND PLAN: This is a 62-year-old male with multiple co- morbidities and a complicated hospital course that required intubation, mechanical ventilation, and pressor support. Multifactorial etiology. PROBLEMS: 1. Critical illness myopathy: Continues to make improvements with physical and occupational therapy. Patient may be out of bed to chair. Recommendations included continued rehabilitation after medical discharge. Patient and family services working towards placement for continued rehabilitation. Patient will continue with hemodialysis outpatient. Patient and family services have sent his patient information over to [facility]. 2. Acute renal failure superimposed on chronic kidney disease: Nephrology is consulted. Patient continues with hemodialysis secondary to an anuric/oliguric renal failure secondary to acute tubular necrosis. Hemodialysis removed 2 L on 03/14/2018. Patient is on Aranesp. Perm-A-Cath has been placed. Heparin ordered to flush catheter only. Prior GFR was 49.1. Renal recovery is possible. Will continue to monitor closely. Renal diet. Nepro supplementation ordered. Electrolyte management by hemodialysis and nephrology recommendations. Corrected calcium is 9.2. Patient may be discharged to rehabilitative unit when medically cleared and may continue hemodialysis for acute renal failure as an outpatient. 3. Pancytopenia: Hematology/oncology consulted. Patient has been thrombocy topenic and anemic in the past. Leukopenia is new. Recommendations include obtaining peripheral blood for flow cytometry, FISH for cytogenetics to rule out MDS, hemolysis labs (haptoglobin and ZACK), DIC work-up (D-dimer, fibrinogen, coags), CPK, and imaging studies to identify lymphadenopathy (which are negative). Heparin and Aspirin have been discontinued. Consented for blood transfusion, typed and screened, and received 2 units of PRBC during hemodialysis. Hemoglobin and hematocrit ordered status-post transfusion. HIT antibody positive, although DOLLY was negative. Prior peripheral smear obtained which revealed "Anemia with minimal macrocytosis and few circulating nucleated red blood cells, likely multifactorial. No abnormal immature leukocytes identified. Mild thrombocytopenia with essentially normal platelet morphology." Hypoproliferation as indicated by reticulocyte index. No signs of active bleeding. TEDs and sequentials with knee high compression. Repeat peripheral smear revealed "Continued macrocytic anemia with pancytopenia. No blast forms identified." 4. Macrocytic anemia: Repeat peripheral smear as noted in #3. Iron studies appears to reveal anemia of chronic disease. Pending vitamin B12 level; folate level is within normal limits. 5. Acute hypercarbic hypoxic respiratory failure: Required intubation and mechanical ventilation. Successfully extubated. Patient is currently saturating 95% on room air. This is appropriate. Continue Acapella. 6. New onset atrial fibrillation with rapid ventricular response: Patient converted to normal sinus rhythm. Cardiology consulted. Continue Amiodarone 200mg by mouth thrice daily. Continue Carvedilol to 3.125mg by mouth every 6 hours with hold parameters and Lipitor 40mg by mouth nightly. Patient may bene fit from cardiac evaluation with angiography; however, patient remains on hemodialysis and has a thrombocytopenia so further invasive cardiac evaluation is on hold for the time being. 7. Elevated troponin with lactic acidosis: Likely secondary to demand ischemia from hypoperfusion that required extensive pressor support. Echocardiogram obtained as resulted above. Cardiology consulted with recommendations for possible further cardiac intervention once patient is stabilized from a medical standpoint, if possible. Discontinued Aspirin. No nephrotoxic agents given acute tubular necrosis and currently requiring hemodialysis. Continue Atorvastatin. Continue with beta-geri. 8. Shock liver: Resolved. Continue statin therapy. 9. Possible acute occult fracture of left knee: Orthopedics initially consulted. Recommended vascular surgery consultation. No surgical intervention secondary to patient's significant comorbidities. Patient may be weightbearing as tolerated, per updated orthopedic recommendations. Left lower extremity arterial Doppler ultrasound obtained. Limited secondary to ulcer on posterior aspect of left lower leg; however, no arterial stenosis noted in other arteries of the left lower extremity. Patient may use orthopedic brace. Discussed left lower extremity amputation (as has been discussed with patient previously). Continue with physical and occupational therapy. 10. 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 Wound bases are clean and non-malodorous. Completed a ten-day course of antibiotic therapy. Blood cultures negative. Dressing changes with OptiLock, Kerlix, and Coban. 11. CAUTI: Likely result of chronic indwelling Anderson catheter. Anderson catheter has been removed. No urinary complaints. Bladder scans ordered. Completed 10- day antibiotic course. 12. Alcohol dependence: Patient has significant alcohol history. No withdrawal symptoms during hospital course. Have started Folic acid and Multivitamin. No need for Benzodiazepine at this time. 13. Depression: Continue with Fluoxetine. 14. Dermatitis: Resolved. Continue with Clobetasol twice daily as needed for 4 weeks. DISPOSITION: Continue physical and occupational therapy. Continue hemodialysis. Prolonged hospital course. Potential transfer to rehabilitative unit once patient is able to transfer independently into wheelchair. VS, I&O, 24H, [facility] Vital Signs/I&O Vital Signs Date Time Temp Pulse Resp B/P (MAP) Pulse Ox O2 Delivery O2 Flow Rate FiO2 03/14/18 18:11 81 130/77 03/14/18 18:00 99.4 16 95 Room Air I&O- Last 24 Hours up to 6 AM 03/14/18 06:00 Intake Total 870 ml Output Total 1175 ml Balance -305 ml Laboratory Data 24H LABS Laboratory Tests 2 03/14/18 05:37: Anion Gap 10, Glomerular Filtration Rate 13.6L, Blood Urea Nitrogen 29H, Creatinine 4.69H, Sodium Level 135L, Potassium Level 4.0, Chloride Level 98, Carbon Dioxide Level 27, Calcium Level 7.4L, Aspartate Amino Transf (AST/SGOT) 24, Alanine Aminotransferase (ALT/SGPT) 34, Lactate Dehydrogenase 212, Total Creatine Kinase 20L, Alkaline Phosphatase 143H, Total Bilirubin 0.8, Total Protein 6.7, Albumin 1.7L, Albumin/Globulin Ratio 0.34L 03/14/18 05:38: Nucleated Red Blood Cells % (auto) 0.0, Immature Platelet Fraction 2.0 03/14/18 11:45: Prothrombin Time 14.9H, Prothromb Time International Ratio 1.16, Activated Partial Thromboplast Time 33.2, Fibrinogen 413, D-Dimer, Quantitative > 4000H CBC/BMP Laboratory Tests 03/14/18 05:37 Calcium Level 7.4 L, Aspartate Amino Transf (AST/SGOT) 24, Alanine Aminotransferase (ALT/SGPT) 34, Lactate Dehydrogenase 212, Total Creatine Kinase 20 L, Alkaline Phosphatase 143 H, Total Bilirubin 0.8, Total Protein 6.7, Albumin 1.7 L 03/14/18 05:38 Red Blood Count 2.53 L, Mean Corpuscular Volume 98.8 H, Mean Corpuscular Hemoglobin 30.8, Mean Corpuscular Hemoglobin Concent 31.2 L, Red Cell Distribution Width 14.5 Microbiology Microbiology 03/10/18 Clostridium difficile (PCR) - Final, Complete CARMINE COCHRAN DO Mar 14, 2018 19:16
[2018-03-14 19:46] LABS: HEMATOCRIT 28.9 % (42.0-52.0); HEMOGLOBIN 9.5 g/dl (13.5-17.5)
[2018-03-14] MEDS: ATORVASTATIN 20 MG TAB PO SCH (21:20)
[2018-03-14] MEDS: traZODone 100 MG TAB PO SCH (21:20)
--- NOTE | 2018-03-14 21:42 | IPN ---
DATE: 03/14/2018 SUBJECTIVE: Rocio is seen and examined this morning in the hemodialysis unit receiving his treatment. He denies any acute overnight events or issues. He is receiving 2 units packed red blood cells with dialysis. He denies any shortness of breath. He is pending hematology evaluation for his pancytopenia. VITAL SIGNS: Temperature is 98.7, pulse 78, respiratory rate 16, blood pressure 141/75, saturating 96% on room air. Intake yesterday was 1020. Urine output yesterday was 875. Dialysis today removed 2000 mL. Weight on the bed scale today is 161 kg. General: The patient is seen on hemodialysis, awake, alert, oriented. Comfortable. No acute distress. Morbidly obese male. Extraocular muscles are intact. Tongue is moist. Jugular veins are not elevated. The right internal jugular (IJ) tunneled PermaCath is in use. Cardiac: Heart sounds are distant. No murmur appreciable. Respiratory: Anterior auscultation only. Symmetric air entry. No wheeze, crackles. Abdomen: Obese. There is some mild edema in the flanks and dependent area. Abdomen is otherwise nontender. Genitourinary: Anderson catheter is present. Extremities: The left lower extremity has dressings and edema in the foot and up to the knee. The right lower extremity has about 1+ edema. Neurologic: He is at baseline mentation. Oriented, interactive, and cooperative. Psychiatric: Appropriate mood and affect. LABORATORY: White count 3.4, hemoglobin7.8, platelets 57. Sodium 135, potassium 4.0, bicarbonate 27. Chest CT March 14, 2018, noncontrast: Rib fractures bilaterally. No adenopathy. No infiltrate in the lung hayden. CT abdomen and pelvis, noncontrast: March 14, 2018: Cortical cysts in the kidneys and some renal cortical atrophy. No hydronephrosis. No evidence of lymphadenopathy. INPATIENT MEDICATIONS: Reviewed by myself and no change from prior. PROBLEMS: 1. Oligo-anuric acute renal failure superimposed on chronic kidney disease (CKD) III. Renal failure was in the setting of cardiac arrest and shock. He has converted to non-oliguric renal failure in the past couple of days. His urine output yesterday was 875 mL. He is still having a brisk rise in interdialytic creatinine and remains hemodialysis dependent. Primary team put the Anderson back in because the patient was having some retention. We will continue to monitor his urine output. He tolerated dialysis today with 2 liters of fluid removed. Given his thrombocytopenia, and previously positive antibody he is recieving heparin-free dialysis. His electrolytes are acceptable and his PermaCath is in good use. 2. Anemia. Hemoglobin was down to 7.8 this morning. He received 2 units of packed red blood cells with dialysis. He also continues on Aranesp. His iron stores were acceptable. There is evidence of pancytopenia. White count has been downtrending. He is thrombocytopenic as well and he is pending hematology evaluation. His aspirin was previously discontinued due to low platelets. 3. Atrial fibrillation. Status post rapid ventricular response (RVR). Heart rate remains controlled with decreased dose of carvedilol and his blood pressures re acceptable as well. He is tolerating fluid removal on dialysis without significant hypotension of hemodialysis. He continues on amiodarone and his potassium and magnesium are acceptable.
[2018-03-14 22:00] VITALS: BP 131/61
[2018-03-14 23:48] VITALS: BP 138/73
[2018-03-15] MEDS: PERCOCET 5MG/325MG TAB PO PRN (00:29)
[2018-03-15 02:00] VITALS: BP 134/70
[2018-03-15] MEDS: SLF 3 ML SYR IV SCH ×3 (05:51→20:58)
[2018-03-15] MEDS: CARVedilol 3.125 MG TAB PO SCH ×4 (05:51→23:27)
[2018-03-15] MEDS: ONDANSETRON 4MG/2ML VIAL (J2405) IV PRN (05:51)
[2018-03-15 06:00] VITALS: BP 122/64
[2018-03-15 06:07] LABS: HEMOGLOBIN 9.5 g/dl (13.5-17.5); MEAN CORPUSCULAR HEMOGLOBIN 30.9 pg (27.0-33.0); MEAN CORPUSCULAR HGB CONC 32.8 g/dl (32.0-36.5); MEAN CORPUSCULAR VOLUME 94.5 fl (80.0-96.0); RED BLOOD COUNT 3.07 10^6/uL (4.30-6.10); WHITE BLOOD COUNT 3.5 10^3/uL (4.0-10.0)
[2018-03-15 06:14] LABS: PLATELET COUNT, AUTOMATED 66 10^3/uL (150-450)
[2018-03-15 06:24] LABS: ALBUMIN 1.8 GM/DL (3.2-5.2); BILIRUBIN,TOTAL 0.9 MG/DL (0.2-1.0); CALCIUM LEVEL 7.9 MG/DL (8.8-10.2); CREATININE FOR GFR 3.17 MG/DL (0.70-1.30); GLOMERULAR FILTRATION RATE 21.4 (>49); POTASSIUM SERUM 3.8 MEQ/L (3.5-5.1); TOTAL PROTEIN 7.2 GM/DL (6.4-8.2)
[2018-03-15] MEDS: guaiFENesin ER 600 MG TAB PO SCH (08:04)
[2018-03-15] MEDS: AMIODARONE 200 MG TAB (PACERONE) PO SCH ×2 (08:04→20:57)
[2018-03-15] MEDS: PREGABALIN 100 MG CAP (LYRICA) PO SCH ×2 (08:04→20:57)
[2018-03-15] MEDS: PANTOPRAZOLE 40MG TAB (PROTONIX) PO SCH (08:04)
[2018-03-15] MEDS: FLUoxetine 20 MG CAP PO SCH (08:04)
[2018-03-15] MEDS: NYSTATIN 100,000 UNITS/GM TOPICAL PWD 15 GM TOP SCH ×2 (08:04→20:58)
[2018-03-15] MEDS: MULTIVITAMINS/MINERALS THERAP 1 TAB PO SCH (08:04)
[2018-03-15] MEDS: FOLIC ACID 1 MG TAB PO SCH (08:04)
[2018-03-15] MEDS: EUCERIN 120GM CREAM TOP SCH ×2 (08:05→20:57)
[2018-03-15 08:17] LABS: HAPTOGLOBIN 142 mg/dL (34-200)
--- NOTE | 2018-03-15 09:59 | IPNPDOC ---
Date Seen The patient was seen on 03/15/18. Progress Note SUBJECTIVE: Patient is a 62-year-old male with fall for which he was evaluated by orthopedic surgery and determined that no intervention was required. Chronic left lower extremity wound and chronic indwelling Anderson catheter with both revealing microbial activity. Patient started on a ntibiotics. 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 He underwent for cardiopulmonary resuscitative events with successful return of spontaneous circulation obtained after each event. Patient was intubated, mechanically ventilated, and placed on three pressors. Elevated troponin without ST elevation possibly secondary to demand ischemia. Poor renal perfusion with anuria requiring hemodialysis. Successfully extubated on 02/24/2018 and transferred to hospitalist service. Patient is evaluated at bedside this morning. He states that he is tired. Denies nausea, vomiting, abdominal pain, chest pain, shortness of breath. He admits to having a decent sized bowel movement. Patient would like to maintain Anderson catheter for a couple more days when the discussion was broached regarding removal. Denies bleeding from any orifice. Admits to left elbow pain from where they "banged it on the wall." OBJECTIVE PHYSICAL EXAMINATION: VITAL SIGNS: Please see below. GENERAL: Morbidly obese male, alert and conversant, tired, appropriately dressed in hospital attire, in no acute distress. HEENT: Atraumatic, normocephalic, PERRL, EOMI, oral mucosa appears pink and moist, nasal septum appears midline, nares are patent, dentition is poor. CARDIOVASCULAR: Regular heart rate and rhythm, normal S1 and S2, no audible murmur, rub, click, almost resolved scar from prior resuscitative pad burn on anterior central chest, anterior chest rash has resolved Perm-A-Cath noted on right sided anterior chest. RESPIRATORY: Limited exam secondary to body habitus, clear to auscultation bilaterally, adequate inspiratory and expiratory airway excursion, symmetric airway entry, no audible focal consolidations, no wheeze, rhonchi, crackles. ABDOMINAL: Morbid, soft, nondistended, nontender to palpation, bowel sounds appreciated throughout, no apparent guarding or rebound, difficult to assess organomegaly due to body habitus. EXTREMITIES: Left lower extremity is wrapped in OptiLock and Coban, chronic venous stasis noted on bilateral lower extremities, +1 pitting peripheral edema on bilateral lower extremities, no clubbing, no cyanosis, foam dressing applied to left elbow. NEUROLOGICAL: No focal neurological deficits. PSYCHOLOGICAL: Mood and affect appear appropriate. LABORATORY DATA, IMAGING STUDIES, MICROBIOLOGY: Please see below. Right complete shoulder x-ray on 02/28/2018 - no acute fracture or dislocation. Abdominal flat plate x-ray on 03/02/2018 - hold normal caliber colon, no evidence of obstruction, degenerative changes and left hip and lumbar spine. Left lower extremity arterial ultrasound on 03/03/2018 - unable to obtain ANTHONY or Doppler measurements due to ulcer; normal triphasic waveforms and normal velocities from other lower extremity arteries; no evidence of arterial stenosis. Limited abdominal ultrasound on 03/10/2018 - mild splenomegaly with a splenic index of 850 and the normal range less than 480, no discrete splenic mass, subcapsular hematoma or adjacent ascites, multiple renal cysts as described, similar to that seen on CT 2 years ago, no hydronephrosis. CT chest without contrast on 03/14/2018 - Right-sided tunnel catheter. Multiple recent anterior and possibly posterior rib fractures noted bilaterally. Gallstones. Elevated right hemidiaphragm. No evidence of adenopathy. CT abdomen and pelvis without contrast on 03/14/2018 - No evidence of lymphadenopathy. Mild splenomegaly. Multiple bilateral renal cysts. Anderson catheter. Echocardiogram: Left ventricular diastolic dysfunction, dilated right heart chambers with hypokinesis of right ventricular free wall, moderate pulmonary hypertension. DVT prophylaxis ordered?: TEDs, sequentials, knee high compression. ASSESSMENT AND PLAN: This is a 62-year-old male with multiple co- morbidities and a complicated hospital course that required intubation, me chanical ventilation, and pressor support. Multifactorial etiology. PROBLEMS: 1. Critical illness myopathy: Continues to make improvements with physical and occupational therapy. Patient may be out of bed to chair. Recommendations included continued rehabilitation after medical discharge. Stretcher chair for meals. Bilateral MPO boots. Patient and family services are working towards obtaining a hemod[facility] chair [facility]. Continue to work towards independent transfers and placement for rehabilitation. Continue current management. 2. Acute renal failure superimposed on chronic kidney disease: Nephrology is consulted. Patient continues with hemodialysis secondary to an anuric/oliguric renal failure secondary to acute tubular necrosis. Hemodialysis removed 2 L on 03/14/2018. Patient is on Aranesp. Perm-A-Cath has been placed. Heparin ordered to flush catheter only. Prior GFR was 49.1. Renal recovery may bes possible. Will continue to monitor closely. Renal diet. Nepro supplementation ordered. Electrolyte management by hemodialysis and nephrology recommendations. Corrected calcium is 9.7. Patient may be discharged to rehabilitative unit when medically cleared and may continue hemodialysis for acute renal failure as an outpatient. 3. Pancytopenia: Hematology/oncology consulted. Patient has been thrombocytopenic and anemic in the past. Leukopenia is new. Recommendations include obtaining peripheral blood for flow cytometry, FISH for cytogenetics to rule out MDS, hemolysis labs (haptoglobin which is normal and ZACK), DIC work-up (D-dimer which is elevated, fibrinogen which is within normal limits, and coagulation studies which reveal a marginally elevated PT), CPK (normal), anti- platelet antibodies, and imaging studies to identify lymphadenopathy (which are negative). Heparin and Aspirin have been discontinued. Status-post 2 units of PRBC with an appropriate response in hemoglobin. HIT antibody positive, although DOLLY was negative. Prior peripheral smear obtained which revealed "Anemia with minimal macrocytosis and few circulating nucleated red blood cells, likely multifactorial. No abnormal immature leukocytes identified. Mild thrombocytopenia with essentially normal platelet morphology." Hypoproliferation as indicated by reticulocyte index. No signs of active bleeding. TEDs and sequentials with knee high compression. Repeat peripheral smear revealed "Continued macrocytic anemia with pancytopenia. No blast forms identified." 4. Macrocytic anemia: Repeat peripheral smear as noted in #3. Iron studies appears to reveal anemia of chronic disease. Pending vitamin B12 level; folate level is within normal limits. 5. Acute hypercarbic hypoxic respiratory failure: Required intubation and mechanical ventilation. Successfully extubated. Patient is currently saturating 93% on room air. This is appropriate. Continue Acapella. 6. New onset atrial fibrillation with rapid ventricular response: Patient converted to normal sinus rhythm. Cardiology consulted. Continue Amiodarone 200mg by mouth thrice daily. Continue Carvedilol to 3.125mg by mouth every 6 hours with hold parameters and Lipitor 40mg by mouth nightly. Patient may benefit from cardiac evaluation with angiography; however, patient remains on hemodialysis and has a thrombocytopenia so further invasive cardiac evaluation is on hold for the time being. 7. Elevated troponin with lactic acidosis: Likely secondary to demand ischemia from hypoperfusion that required extensive pressor support. Echocardiogram obtained as resulted above. Cardiology consulted with recommendations for possible further cardiac intervention once patient is stabilized from a medical standpoint, if possible. Discontinued Aspirin. No nephrotoxic agents given acute tubular necrosis and currently requiring hemodialysis. Continue Atorvastatin. Continue with beta-geri. 8. Shock liver: Resolved. Continue statin therapy. 9. Possible acute occult fracture of left knee: Orthopedics initially consulted. Recommended vascular surgery consultation. No surgical intervention secondary to patient's significant comorbidities. Patient may be weightbearing as tolerated, per updated orthopedic recommendations. Left lower extremity arterial Doppler ultrasound obtained. Limited secondary to ulcer on posterior aspect of left lower leg; however, no arterial stenosis noted in other arteries of the left lower extremity. Patient may use orthopedic brace. Discussed left lower extremity amputation (as has been discussed with patient previously). Continue with physical and occupational therapy. 10. 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 Wound bases are clean and non-malodorous. Completed a ten-day course of antibiotic therapy. Blood cultures negative. Dressing changes with OptiLock, Kerlix, and Coban. 11. CAUTI: Likely result of chronic indwelling Anderson catheter. Anderson catheter has been removed. No urinary complaints. Bladder scans ordered. Completed 10- day antibiotic course. 12. Alcohol dependence: Patient has significant alcohol history. No withdrawal symptoms during hospital course. Have started Folic acid and Multivitamin. No need for Benzodiazepine at this time. 13. Depression: Continue with Fluoxetine. 14. Dermatitis: Resolved. Continue with Clobetasol twice daily as needed for 4 weeks. DISPOSITION: Continue physical and occupational therapy. Continue hemodialysis. Prolonged hospital course. Potential transfer to rehabilitative unit once patient is able to transfer independently into wheelchair. VS, I&O, [facility] Vital Signs/I&O Vital Signs Date Time Temp Pulse Resp B/P (MAP) Pulse Ox O2 Delivery O2 Flow Rate FiO2 03/15/18 06:00 98.5 83 20 122/64 (83) 93 Room Air I&O- Last 24 Hours up to 6 AM 03/15/18 06:00 Intake Total 1420 ml Output Total 2550 ml Balance -1130 ml Laboratory Data 24H LABS Laboratory Tests 2 03/14/18 11:45: Haptoglobin 142, Prothrombin Time 14.9H, Prothromb Time International Ratio 1.16, Activated Partial Thromboplast Time 33.2, Fibrinogen 413, D-Dimer, Quantitative > 4000H 03/15/18 05:40: Nucleated Red Blood Cells % (auto) 0.0, Immature Platelet Fraction 2.8, Anion Gap 7L, Glomerular Filtration Rate 21.4L, Blood Urea Nitrogen 18, Creatinine 3.17H, Sodium Level 135L, Potassium Level 3.8, Chloride Level 100, Carbon Dioxide Level 28, Calcium Level 7.9L, Aspartate Amino Transf (AST/SGOT) 29, Al anine Aminotransferase (ALT/SGPT) 30, Alkaline Phosphatase 202H, Total Bilirubin 0.9, Total Protein 7.2, Albumin 1.8L, Albumin/Globulin Ratio 0.33L CBC/BMP Laboratory Tests 03/14/18 19:38 03/15/18 05:40 Red Blood Count 3.07 L, Mean Corpuscular Volume 94.5, Mean Corpuscular Hem oglobin 30.9, Mean Corpuscular Hemoglobin Concent 32.8, Red Cell Distribution Width 16.6 H, Calcium Level 7.9 L, Aspartate Amino Transf (AST/SGOT) 29, Alanine Aminotransferase (ALT/SGPT) 30, Alkaline Phosphatase 202 H, Total Bilirubin 0.9, Total Protein 7.2, Albumin 1.8 L Microbiology Microbiology 03/10/18 Clostridium difficile (PCR) - Final, Complete CARMINE COCHRAN DO Mar 15, 2018 09:58
[2018-03-15 14:00] VITALS: BP 131/71
[2018-03-15] MEDS: guaiFENesin SYRUP 200 MG/10 ML UDC PO PRN ×2 (14:04→23:26)
--- NOTE | 2018-03-15 16:57 | REP ---
CHEST PORTABLE: AP portable view of the chest is performed. COMPARISON: 02/25/2018 Previously noted bibasilar infiltrates and effusions appear to have resolved. Right hemidiaphragm is somewhat elevated. There is left ventricular prominence. The mediastinal silhouette is unchanged. There is a right central venous catheter again seen. IMPRESSION: No acute infiltrate. Electronically Signed by Ilan Hoover MD 03/15/2018 07:45 P
--- NOTE | 2018-03-15 19:05 | CR ---
DATE OF CONSULTATION: 03/15/2018 MEDICAL ONCOLOGY/HEMATOLOGY INPATIENT CONSULT I was asked to see Mr. Eng by Uday Grewal MD of hospitalist service for inpatient Hematology/Oncology consult addressing pancytopenia. Rocio Eng is a 62-year-old man, at baseline wheelchair bound at home, morbidly obese with peripheral vascular disease and chronic lower extremity ulcers managed in wound clinic, who was admitted 02/18/2018 after falling out of his wheelchair at home, being found unresponsive, apparently had several episodes of cardiac arrest, was found to be in acute renal failure, intubated here, now extubated. I was called to address progressive pancytopenia and specifically progressive thrombocytopenia emerging as of February 20, anemia emerging March 03, and leukopenia emerging March 13. Reviewing [facility] records. It is clear Mr. Eng has had intermittent thrombocytopenia for at least 12 years, as well as normo- to macrocytic anemia for 12 years dating to 2006. He acknowledges needing transfusions in the past 5 years at a hospital in [place] and a senior care in [place] where he was hospitalized earlier this year. He denies any knowledge of a personal or family history of celiac disease. He says, "They don't know what is causing it." B12, iron, folic acid all adequate stores on testing this hospitalization. Peripheral smear with no blasts, no schistocytes. Liver functions normal. No clinical evidence of bleeding. CT chest, abdomen and pelvis with no evidence of lymphadenopathy or masses. (These were noncontrast studies). Peripheral flow cytometry has been drawn, sent and is pending; peripheral smear notable for macrocytic anemia and thrombocytopenia, no blasts, no schistocytes, PT elevated at 15, PTT normal 33, D-dimer is elevated. Risk for heparin-induced thrombocytopenia deemed intermediate by 4T score, heparin- induced antibody PF4 indeterminate, just over threshold at 0.566. At the bedside, Mr. Eng is a morbidly obese man, reclining in bed. He has a long tobias. He makes good eye contact, answers questions appropriately, is a reasonably good historian. To his knowledge, no one in the family has had problems with diarrhea or celiac disease, he has two brothers with history of colon cancer in their 50s, a sister with breast cancer. PAST MEDICAL HISTORY: Spinal cord injury 2001, chronic back pain, wheelchair bound, hypertension, chronic lower extremity ulcers, depression, peripheral artery disease. PAST SURGICAL HISTORY: Herniorrhaphy, lower extremity skin graft SOCIAL HISTORY: The patient denies ever smoking, acknowledges heavy alcohol use in the past, wheelchair bound. FAMILY HISTORY: Two brothers in their 50s with colon cancer, a sister with breast cancer. ALLERGIES: VANCOMYCIN. REVIEW OF SYSTEMS: Limited. The patient denies unintended weight loss, rigors, fevers, rashes, unusual new joint aches in the last few months, has chronic joint problems and immobility due to his lower extremity and back pain problems. He fractured a leg early in 2018 leading to long-term hospitalization in a senior care. PHYSICAL EXAM: Limited. Temperature 98.4, blood pressure 131/71, heart rate 84, respiratory rate 20, O2 sat 97%. Patient is a heavily bearded, youthful appearing middle-aged man, somewhat nathan complexion, somewhat effortful breathing. Respiratory: Clear lungs to anterior lung exam. No wheezes, no rales. Air movement equally distributed throughout the anterior chest. No stridor. Cardiac: S1, S2 distant but normal S1, S2. No murmur or gallop audible. Abdomen: Soft, nontender, obese, large pannus. No palpable organomegaly but limited exam. Extremities: 3+ pitting edema in the pretibial area above the ankles. Morbid obesity limits lymph node exam. No palpable upper neck or axillary adenopathy. LABS Today, WBC 3.5, hemoglobin 9.5, hematocrit 29, platelets 66, immature platelet fraction 2.8, haptoglobin 142. Electrolytes unremarkable. BUN 18, creatinine 3.17, albumin 1.8, calcium 7.9 corrects, alkaline phosphatase 202, AST/ALT 29 and 30 respectively. Other notable labs: LDH on admission 4800, tamra to 21,000 or that was spurious and then back down again, PT 15, PTT 33. Other notable labs enumerated above in the HPI. IMPRESSION: Chronic anemia and thrombocytopenia Acute leukopenia, mild to modrate Thrombocytopenia may be due to ITP, hypersplenism secondary to the mild splenomegaly (of note, hepatitis B core antibody is positive), or combination thereof. Anemia is of uncertain etiology: no evidence of nutritional deficiency currently, but he has received transfusions on this admission and in past hospitalizations this year and earlier. The leukopenia is new for him butmild and stabilized. Admission WBC 9.3, tamra to 12, but dropped into the 3 as of March 13, has remained there for the last 3 days. Peripheral flow cytometry looking for clonal malignancy such as leukemia or lymphoma is pending but on peripheral smear, no evidence of blasts and no schistocytes (invoking microangiopathic hemolytic anemia, for example). Overall, I suspect this patient has mild recovering DIC contributing to his thrombocytopenia, which is either secondary to hypersplenism or ITP but is in any case of very long standing. The anemia is overall stable and consistent with his longstanding history as well but of uncertain etiology. Once stabilized, celiac workup could be pursued. The leukopenia is of less clear cause; it is new, may be dilutional, possibly myelosuppression secondary to the multifactorial insults sustained during this admission including dialysis. Pending flow cytometry results, I suggest holding invasive hematologic tests such as a bone marrow biopsy. 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 RECOMMENDATIONS 1. Followup peripheral blood flow cytometry. 2. Will follow intermittently. 3. Should WBC count drop precipitously, would consider bone marrow biopsy, but frankly technically this would pose an extreme challenge and probably require involvement of interventional radiology. My experience with sternal bone marrow biopsies being too scant to offer this service. ANU
--- NOTE | 2018-03-15 20:44 | IPN ---
DATE: 03/15/2018 SUBJECTIVE: Patient seen and examined this morning at the bedside. Tolerated dialysis yesterday with 2 liters of fluid removed without issue. Urine output past two days has averaged about 850 mL. Anderson catheter is back in place. He complains of cough. VITAL SIGNS: Temperature 98.4, pulse 84, respiratory rate 20, blood pressure 131/71, saturating 97% on 2 liters nasal cannula. Intake yesterday was 1570. Urine output 850. Dialysis yesterday removed 2000. Net negative yesterday 1280. Weight on the bed scale today is 156.8 kg which is decreased from prior. GENERAL: The patient is seen lying in bed, morbidly obese. Awake, alert, oriented. No acute distress. Extraocular muscles are intact. Makes eye contact. Tongue is moist. Jugular veins are not elevated. Right IJ tunneled PermaCath with dressing. CARDIAC: Distant heart sounds. No appreciable murmur. Regular rate. RESPIRATORY: Anterior auscultation only. Symmetric air entry. Distant breath sounds. No wheezing or crackles. ABDOMEN: Obese. There is some mild edema in the flanks and dependent area. Abdomen is otherwise nontender. GENITOURINARY: Shows Anderson catheter. EXTREMITIES: Left lower extremity has dressings and edema. The right lower extremity has some chronic venous stasis changes and 1+ edema. NEUROLOGICAL: He is at baseline mentation. Oriented and interactive. PSYCHIATRIC: Appropriate mood and affect. LABS: Sodium 135, potassium 3.8. White count 3.5, hemoglobin 9.5, platelets 66. CT chest yesterday shows nondisplaced subacute rib fractures. INPATIENT MEDICATIONS: Reviewed by myself. Noted his Robitussin was changed to liquid formulation. Remainder of medications are unchanged from prior. PROBLEMS: 1. Oligoanuric acute renal failure on chronic kidney disease (CKD), stage III which is now converted to nonoliguric renal failure with urine output the past two days averaging around 850 mL. His renal failure was in the setting of cardiac arrest and shock. He remains hemodialysis dependent at present. We will continue to monitor for signs of renal recovery including urine output and trend of interdialytic creatinine. He tolerated dialysis yesterday with 2 liters of fluid removed. Given his thrombocytopenia he is receiving heparin-free dialysis. His electrolytes are acceptable. His volume status is improving and his PermaCath is in good use. Next dialysis will be on Monday. 2. Anemia. Status post 2 units of packed red blood cells. On the hemoglobin is improved to 9.5 and stable. He continues on weekly Aranesp. There is also accompanying thrombocytopenia. His aspirin was previously stopped per the primary team. He received heparin-free dialysis. White count has also mildly down-trended and he is being evaluated by hematology today. His iron stores were acceptable. 3. Atrial fibrillation. Status post rapid ventricular response (RVR). Heart rate remains well controlled with carvedilol. Blood pressures are acceptable. He is tolerating fluid removal on dialysis without significant hypotension of hemodialysis. He also continues on amiodarone and his potassium and magnesium have been acceptable.
[2018-03-15] MEDS: traZODone 100 MG TAB PO SCH (20:57)
[2018-03-15] MEDS: ATORVASTATIN 20 MG TAB PO SCH (20:57)
[2018-03-15 22:00] VITALS: BP 123/65
[2018-03-16 00:08] LABS: HLA CLASS 1 ANTIBODY Negative (Negative); IIb/IIIa ANTIBODY Negative (Negative); Ia/IIa ANTIBODY Negative (Negative); Ib/IX ANTIBODY Negative (Negative)
[2018-03-16 06:02] VITALS: BP 124/67
[2018-03-16] MEDS: MULTIVITAMINS/MINERALS THERAP 1 TAB PO SCH (06:04)
[2018-03-16] MEDS: FLUoxetine 20 MG CAP PO SCH (06:04)
[2018-03-16] MEDS: CARVedilol 3.125 MG TAB PO SCH ×3 (06:04→18:21)
[2018-03-16] MEDS: PREGABALIN 100 MG CAP (LYRICA) PO SCH ×2 (06:04→20:24)
[2018-03-16] MEDS: PANTOPRAZOLE 40MG TAB (PROTONIX) PO SCH (06:05)
[2018-03-16] MEDS: FOLIC ACID 1 MG TAB PO SCH (06:05)
[2018-03-16] MEDS: EUCERIN 120GM CREAM TOP SCH ×2 (06:05→20:25)
[2018-03-16] MEDS: SLF 3 ML SYR IV SCH ×3 (06:05→20:26)
[2018-03-16] MEDS: NYSTATIN 100,000 UNITS/GM TOPICAL PWD 15 GM TOP SCH ×2 (06:06→20:25)
[2018-03-16] MEDS: AMIODARONE 200 MG TAB (PACERONE) PO SCH ×2 (06:08→20:24)
[2018-03-16 06:14] LABS: HEMATOCRIT 30.6 % (42.0-52.0); HEMOGLOBIN 9.6 g/dl (13.5-17.5); MEAN CORPUSCULAR HEMOGLOBIN 31.2 pg (27.0-33.0); MEAN CORPUSCULAR HGB CONC 31.4 g/dl (32.0-36.5); MEAN CORPUSCULAR VOLUME 99.4 fl (80.0-96.0); RED BLOOD COUNT 3.08 10^6/uL (4.30-6.10); WHITE BLOOD COUNT 3.7 10^3/uL (4.0-10.0)
[2018-03-16 06:18] LABS: PLATELET COUNT, AUTOMATED 63 10^3/uL (150-450)
[2018-03-16 06:32] LABS: ALBUMIN 1.7 GM/DL (3.2-5.2); BILIRUBIN,TOTAL 0.7 MG/DL (0.2-1.0); CALCIUM LEVEL 7.8 MG/DL (8.8-10.2); CREATININE FOR GFR 4.23 MG/DL (0.70-1.30); GLOMERULAR FILTRATION RATE 15.3 (>49); POTASSIUM SERUM 4.1 MEQ/L (3.5-5.1); TOTAL PROTEIN 7.2 GM/DL (6.4-8.2)
[2018-03-16 08:34] LABS: VITAMIN B12 LEVEL 961 PG/ML (232-1245)
[2018-03-16] MEDS: guaiFENesin SYRUP 200 MG/10 ML UDC PO PRN (08:38)
[2018-03-16] MEDS ORDERED: HEPARIN 1,000 UNITS/ML 10ML VIAL (FOR RADIOLOGY& DIALYSIS ONLY) XX ONE (12:15)
--- NOTE | 2018-03-16 13:43 | IPNPDOC ---
Date Seen The patient was seen on 03/16/18. Progress Note SUBJECTIVE: Patient is a 62-year-old male with fall for which he was evaluated by orthopedic surgery and determined that no intervention was required. Chronic left lower extremity wound and chronic indwelling Anderson catheter with both revealing microbial activity. Patient started on a ntibiotics. 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 He underwent for cardiopulmonary resuscitative events with successful return of spontaneous circulation obtained after each event. Patient was intubated, mechanically ventilated, and placed on three pressors. Elevated troponin without ST elevation possibly secondary to demand ischemia. Poor renal perfusion with anuria requiring hemodialysis. Successfully extubated on 02/24/2018 and transferred to hospitalist service. Patient is evaluated at bedside this morning. Overall, he is doing well. Denies nausea, vomiting, abdominal pain, chest pain, shortness of breath. Informed patient that his Anderson catheter will be removed today. Patient states that he continues to cough which produces clear phlegm. He does not notice any blood in his sputum. Patient reports uncomfortableness with sitting upright. OBJECTIVE PHYSICAL EXAMINATION: VITAL SIGNS: Please see below. GENERAL: Morbidly obese male, alert and conversant, tired, appropriately dressed in hospital attire, in no acute distress. HEENT: Atraumatic, normocephalic, PERRL, EOMI, oral mucosa appears pink and moist, nasal septum appears midline, nares are patent, dentition is poor. CARDIOVASCULAR: Regular heart rate and rhythm, normal S1 and S2, no audible murmur, rub, click, Perm-A-Cath noted on right sided anterior chest. RESPIRATORY: Limited exam secondary to body habitus, clear to auscultation bilaterally, adequate inspiratory and expiratory airway excursion, symmetric airway entry, no audible focal consolidations, no wheeze, rhonchi, crackles. ABDOMINAL: Morbid, soft, nondistended, nontender to palpation, bowel sounds appreciated throughout, no apparent guarding or rebound, difficult to assess organomegaly due to body habitus. EXTREMITIES: Left lower extremity is wrapped in OptiLock and Coban, chronic venous stasis noted on bilateral lower extremities, +1 pitting peripheral edema on bilateral lower extremities, no clubbing, no cyanosis, foam dressing applied to left elbow. NEUROLOGICAL: No focal neurological deficits. PSYCHOLOGICAL: Mood and affect appear appropriate. LABORATORY DATA, IMAGING STUDIES, MICROBIOLOGY: Please see below. Right complete shoulder x-ray on 02/28/2018 - no acute fracture or dislocation. Abdominal flat plate x-ray on 03/02/2018 - hold normal caliber colon, no evidence of obstruction, degenerative changes and left hip and lumbar spine. Left lower extremity arterial ultrasound on 03/03/2018 - unable to obtain ANTHONY or Doppler measurements due to ulcer; normal triphasic waveforms and normal velocities from other lower extremity arteries; no evidence of arterial stenosis. Limited abdominal ultrasound on 03/10/2018 - mild splenomegaly with a splenic index of 850 and the normal range less than 480, no discrete splenic mass, subcapsular hematoma or adjacent ascites, multiple renal cysts as described, similar to that seen on CT 2 years ago, no hydronephrosis. CT chest without contrast on 03/14/2018 - Right-sided tunnel catheter. Multiple recent anterior and possibly posterior rib fractures noted bilaterally. Gallstones. Elevated right hemidiaphragm. No evidence of adenopathy. CT abdomen and pelvis without contrast on 03/14/2018 - No evidence of lymphadenopathy. Mild splenomegaly. Multiple bilateral renal cysts. Anderson catheter. Echocardiogram: Left ventricular diastolic dysfunction, dilated right heart chambers with hypokinesis of right ventricular free wall, moderate pulmonary hypertension. DVT prophylaxis ordered?: TEDs, sequentials, knee high compression. ASSESSMENT AND PLAN: This is a 62-year-old male with multiple co- morbidities and a complicated hospital course that required intubation, mechanical ventilation, and pressor support. Multifactorial etiology. PROBLEMS: 1. Critical illness myopathy: Continues to make improvements with physical and occupational therapy. Both services have recommended that patient be out of bed in stretcher chair. Patient will only be safe for discharge to in-patient rehabilitation once medically cleared. Bilateral MPO boots. Patient and family services are working towards obtaining a hemodialysis chair at [facility]. Continue to work towards independent transfers and placement for rehabilitation. Continue current management. 2. Acute renal failure superimposed on chronic kidney disease: Nephrology is consulted. Patient continues with hemodialysis secondary to an anuric/oliguric renal failure secondary to acute tubular necrosis. Hemodialysis removed 2 L on 03/14/2018. Patient scheduled for hemodialysis today, 03/16/2018. Patient is on Aranesp. Perm-A-Cath has been placed. Heparin ordered to flush catheter only. Prior GFR was 49.1. Renal recovery may bes possible. Will continue to monitor closely. Renal diet. Nepro supplementation ordered. Electrolyte management by hemodialysis and nephrology recommendations. Corrected calcium is 9.6. Patient may be discharged to rehabilitative unit when medically cleared and may continue hemodialysis for acute renal failure as an outpatient. 3. Pancytopenia: Hematology/oncology consulted. Patient has been thrombocytopenic and anemic in the past, possibly due to ITP or recent recovery from DIC. Recommend work-up for celiac disease once stabilized. Leukopenia is new. Recommendations include obtaining peripheral blood for flow cytometry, FISH for cytogenetics to rule out MDS, hemolysis labs (haptoglobin which is normal and ZACK), DIC work-up (D-dimer which is elevated, fibrinogen which is within normal limits, and coagulation studies which reveal a marginally elevated PT), CPK (normal), anti-platelet antibodies which are negative, and imaging studies to identify lymphadenopathy (which are negative). Heparin and Aspirin have been discontinued. Status-post 2 units of PRBC with an appropriate response in hemoglobin. HIT antibody positive, although DOLLY was negative. Prior peripheral smear obtained which revealed "Anemia with minimal macrocytosis and few circulating nucleated red blood cells, likely multifactorial. No abnor mal immature leukocytes identified. Mild thrombocytopenia with essentially normal platelet morphology." Hypoproliferation as indicated by reticulocyte index. No signs of active bleeding. TEDs and sequentials with knee high compression. Repeat peripheral smear revealed "Continued macrocytic anemia with pancytopenia. No blast forms identified." 4. Macrocytic anemia: Repeat peripheral smear as noted in #3. Iron studies appears to reveal anemia of chronic disease. Vitamin B12 level within normal limits (961); folate level is within normal limits. 5. Acute hypercarbic hypoxic respiratory failure: Required intubation and mechanical ventilation. Successfully extubated. Patient is currently saturating 92% on room air. This is appropriate. Continue Acapella. Has required oxygen overnight. 6. New onset atrial fibrillation with rapid ventricular response: Patient converted to normal sinus rhythm. Cardiology consulted. Continue Amiodarone 200mg by mouth thrice daily. Continue Carvedilol to 3.125mg by mouth every 6 hours with hold parameters and Lipitor 40mg by mouth nightly. Patient may benefit from cardiac evaluation with angiography; however, patient remains on hemodialysis and has a thrombocytopenia so further invasive cardiac evaluation is on hold for the time being. 7. Elevated troponin with lactic acidosis: Likely secondary to demand ischemia from hypoperfusion that required extensive pressor support. Echocardiogram obtained as resulted above. Cardiology consulted with recommendations for possible further cardiac intervention once patient is stabilized from a medical standpoint, if possible. Discontinued Aspirin. No nephrotoxic agents given acute tubular necrosis and currently requiring hemodialysis. Continue Atorvastatin. Continue with beta-geri. 8. Shock liver: Resolved. Continue statin therapy. 9. Possible acute occult fracture of left knee: Orthopedics initially consulted. Recommended vascular surgery consultation. No surgical intervention secondary to patient's significant comorbidities. Patient may be weightbearing as tolerated, per updated orthopedic recommendations. Left lower extremity arterial Doppler ultrasound obtained. Limited secondary to ulcer on posterior aspect of left lower leg; however, no arterial stenosis noted in other arteries of the left lower extremity. Patient may use orthopedic brace. Discussed left lower e xtremity amputation (as has been discussed with patient previously). Continue with physical and occupational therapy. 10. 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 Wound bases are clean and non-malodorous. Completed a ten-day course of antibiotic therapy. Blood cultures negative. Dressing changes with OptiLock, Kerlix, and Coban. 11. CAUTI: Likely result of chronic indwelling Anderson catheter. Anderson catheter has been removed. No urinary complaints. Bladder scans ordered. Completed 10- day antibiotic course. 12. Alcohol dependence: Patient has significant alcohol history. No withdrawal symptoms during hospital course. Have started Folic acid and Multivitamin. No need for Benzodiazepine at this time. 13. Depression: Continue with Fluoxetine. 14. Dermatitis: Resolved. Continue with Clobetasol twice daily as needed for 4 weeks. 15. Cough with sputum production: Afebrile. Chest x-ray obtained was without acute infiltrate. Continue with Robitussin. DISPOSITION: Continue physical and occupational therapy. Continue hemodialysis. Prolonged hospital course. Potential transfer to rehabilitative unit once patient is able to transfer independently into wheelchair. VS, I&O, 24H, Fishbone Vital Signs/I&O Vital Signs Date Time Temp Pulse Resp B/P (MAP) Pulse Ox O2 Delivery O2 Flow Rate FiO2 03/16/18 08:47 92 Room Air 03/16/18 06:04 83 124/67 03/16/18 06:02 97.9 16 2.0 I&O- Last 24 Hours up to 6 AM 03/16/18 06:00 Intake Total 1200 ml Output Total 600 ml Balance 600 ml Laboratory Data 24H LABS Laboratory Tests 2 03/16/18 05:59: Nucleated Red Blood Cells % (auto) 0.0, Immature Platelet Fraction 2.4, Anion Gap 7L, Glomerular Filtration Rate 15.3L, Blood Urea Nitrogen 25H, Creatinine 4.23H, Sodium Level 135L, Potassium Level 4.1, Chloride Level 99, Carbon Dioxide Level 29, Calcium Level 7.8L, Aspartate Amino Transf (AST/SGOT) 22, Alanine Aminotransferase (ALT/SGPT) 24, Alkaline Phosphatase 181H, Total Bilirubin 0.7, Total Protein 7.2, Albumin 1.7L, Albumin/Globulin Ratio 0.31L CBC/BMP Laboratory Tests 03/16/18 05:59 Red Blood Count 3.08 L, Mean Corpuscular Volume 99.4 H, Mean Corpuscular Hemoglobin 31.2, Mean Corpuscular Hemoglobin Concent 31.4 L, Red Cell Distribution Width 16.0 H, Calcium Level 7.8 L, Aspartate Amino Transf (AST/S GOT) 22, Alanine Aminotransferase (ALT/SGPT) 24, Alkaline Phosphatase 181 H, Total Bilirubin 0.7, Total Protein 7.2, Albumin 1.7 L Microbiology Microbiology 03/10/18 Clostridium difficile (PCR) - Final, Complete CARMINE COCHRAN DO Mar 16, 2018 13:43
[2018-03-16 18:00] VITALS: BP 123/70
[2018-03-16 20:00] VITALS: BP 110/59
[2018-03-16] MEDS: ATORVASTATIN 20 MG TAB PO SCH (20:24)
[2018-03-16] MEDS: traZODone 100 MG TAB PO SCH (20:24)
[2018-03-16] MEDS: PERCOCET 5MG/325MG TAB PO PRN (22:55)
[2018-03-17] MEDS: CARVedilol 3.125 MG TAB PO SCH ×5 (01:00→23:13)
[2018-03-17 02:00] VITALS: BP 120/74
[2018-03-17 06:00] VITALS: BP 98/61
[2018-03-17 06:10] LABS: HEMATOCRIT 32.3 % (42.0-52.0); HEMOGLOBIN 10.1 g/dl (13.5-17.5); MEAN CORPUSCULAR HEMOGLOBIN 31.1 pg (27.0-33.0); MEAN CORPUSCULAR HGB CONC 31.3 g/dl (32.0-36.5); MEAN CORPUSCULAR VOLUME 99.4 fl (80.0-96.0); RED BLOOD COUNT 3.25 10^6/uL (4.30-6.10); WHITE BLOOD COUNT 4.1 10^3/uL (4.0-10.0)
[2018-03-17] MEDS: SLF 3 ML SYR IV SCH ×3 (06:12→21:58)
[2018-03-17 06:15] VITALS: BP 123/70
[2018-03-17 06:15] LABS: PLATELET COUNT, AUTOMATED 75 10^3/uL (150-450)
[2018-03-17 06:28] LABS: ALBUMIN 1.8 GM/DL (3.2-5.2); BILIRUBIN,TOTAL 0.7 MG/DL (0.2-1.0); CALCIUM LEVEL 8.1 MG/DL (8.8-10.2); CREATININE FOR GFR 2.95 MG/DL (0.70-1.30); GLOMERULAR FILTRATION RATE 23.2 (>49); POTASSIUM SERUM 3.8 MEQ/L (3.5-5.1); TOTAL PROTEIN 7.7 GM/DL (6.4-8.2)
[2018-03-17] MEDS: NYSTATIN 100,000 UNITS/GM TOPICAL PWD 15 GM TOP SCH ×2 (09:50→21:58)
[2018-03-17] MEDS: MULTIVITAMINS/MINERALS THERAP 1 TAB PO SCH (09:50)
[2018-03-17] MEDS: FOLIC ACID 1 MG TAB PO SCH (09:50)
[2018-03-17] MEDS: AMIODARONE 200 MG TAB (PACERONE) PO SCH ×2 (09:50→21:57)
[2018-03-17] MEDS: EUCERIN 120GM CREAM TOP SCH ×2 (09:50→21:57)
[2018-03-17] MEDS: PREGABALIN 100 MG CAP (LYRICA) PO SCH ×2 (09:50→21:57)
[2018-03-17] MEDS: PANTOPRAZOLE 40MG TAB (PROTONIX) PO SCH (09:50)
[2018-03-17] MEDS: FLUoxetine 20 MG CAP PO SCH (09:50)
[2018-03-17] MEDS: PERCOCET 5MG/325MG TAB PO PRN ×2 (09:53→23:14)
--- NOTE | 2018-03-17 11:30 | IPN ---
DATE: 03/16/2018 SUBJECTIVE: Rocio is seen and examined this morning in the hemodialysis unit receiving his treatment. He complains of a cough, otherwise denies any issues. His Anderson catheter was removed by the primary team. Nancy Signs: Temperature 98.3, pulse 85, respiratory rate 19, blood pressure 110/59, saturating 95% on room air. Intake yesterday was 1200. Urine out put yesterday is 600. Goal fluid removal with dialysis today is 2000. Weight on the bed scale today is not recorded. General: Patient is seen lying in bed in the hemodialysis unit receiving his treatment. Morbidly obese. Awake, alert, oriented in no acute distress. Extraocular muscles intact. Tongue is moist. Jugular veins are not elevated. Right internal jugular (IJ) tunnel PermaCath is in use. Cardiac: Distant heart sounds. No appreciable murmur. Respiratory: Anterior auscultation only. Diminished breath sounds secondary to body habitus. No wheezing or crackle. Abdomen is obese. There is some mild edema in the flanks and dependent area, otherwise, abdomen is nontender. Genitourinary: His Anderson catheter has been removed. Extremities: Left lower extremity has dressings and edema. Right lower extremity has some chronic venous stasis changes and about a trace to 1+ edema. Neurologic: He is at baseline mentation, oriented and interactive. Psychiatric: Appropriate mood and affect. LABS: White count 3.7, hemoglobin 9.6, platelets 63. Sodium 135, potassium 4.1, bicarbonate 29. INPATIENT MEDICATIONS: Reviewed by myself. No change from prior. PROBLEMS: 1. Oliguric acute renal failure on chronic kidney disease (CKD) stage III which has now converted to nonoliguric renal failure. His renal failure was in the setting of cardiac arrest and shock. At present, he does remain hemodialysis dependent, however. I will keep an eye on the interdialytic, creatinine and also on the urine output and continue to monitor for signs of renal recovery. He is dialyzed today with goal fluid removal of 2 liters. Given his thrombocytopenia, he is receiving heparin-free dialysis. His electrolytes are acceptable. Volume status is improving and PermaCath is in good use. His next dialysis will be on Monday. 2. Anemia: The patient continues on weekly Aranesp. He was transfused two units packed red blood cels earlier this week. Hemoglobin has been stable since then. There is also accompanying thrombocytopenia. He is receiving heparin-free dialysis. His aspirin was previously stopped by the primary team. Hematology is evaluating him as his white count is also slowly down-trending. 3. Atrial fibrillation status post rapid ventricular rate (RVR). Heart rate remains well controlled with a lower dose of carvedilol and blood pressure are acceptable. He is tolerating fluid removal on dialysis without any ongoing significant hypotension of hemodialysis. He also continues on amiodarone and his potassium is acceptable and I suggest to intermittently check his magnesium levels as well. MTDD
[2018-03-17 14:00] VITALS: BP 136/71
--- NOTE | 2018-03-17 14:04 | IPNPDOC ---
Date Seen The patient was seen on 03/17/18. Progress Note SUBJECTIVE: Patient is a 62-year-old male with fall for which he was evaluated by orthopedic surgery and determined that no intervention was required. Chronic left lower extremity wound and chronic indwelling Anderson catheter with both revealing microbial activity. Patient started on a ntibiotics. 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 He underwent for cardiopulmonary resuscitative events with successful return of spontaneous circulation obtained after each event. Patient was intubated, mechanically ventilated, and placed on three pressors. Elevated troponin without ST elevation possibly secondary to demand ischemia. Poor renal perfusion with anuria requiring hemodialysis. Successfully extubated on 02/24/2018 and transferred to hospitalist service. Patient is evaluated at bedside this morning. Patient reports continued right posterior shoulder pain. Overall though he states he feels somewhat tired. Denies chest pain, shortness of breath, nausea, vomiting, abdominal pain, fever, night sweats, chills. Required urinary bladder straight catheterization, but subsequent voids have occurred spontaneously. OBJECTIVE PHYSICAL EXAMINATION: VITAL SIGNS: Please see below. GENERAL: Morbidly obese male, alert and conversant, appropriately dressed in hospital attire, in no acute distress. HEENT: Atraumatic, normocephalic, PERRL, EOMI, oral mucosa appears pink and moist, nasal septum appears midline, nares are patent, dentition is poor. CARDIOVASCULAR: Regular heart rate and rhythm, normal S1 and S2, no audible murmur, rub, click, Perm-A-Cath noted on right sided anterior chest. RESPIRATORY: Limited exam secondary to body habitus, clear to auscultation bilaterally, adequate inspiratory and expiratory airway excursion, symmetric a irway entry, no audible focal consolidations, no wheeze, rhonchi, crackles. ABDOMINAL: Morbid, soft, nondistended, nontender to palpation, bowel sounds appreciated throughout, no apparent guarding or rebound, difficult to assess organomegaly due to body habitus. EXTREMITIES: Left lower extremity is wrapped in OptiLock and Coban, chronic venous stasis noted on bilateral lower extremities, +1 pitting peripheral edema on bilateral lower extremities, no clubbing, no cyanosis, foam dressing applied to left elbow, pain with palpation of right posterior shoulder, no visible skin rashes or lesions. NEUROLOGICAL: No focal neurological deficits. PSYCHOLOGICAL: Mood and affect appear appropriate. LABORATORY DATA, IMAGING STUDIES, MICROBIOLOGY: Please see below. Right complete shoulder x-ray on 02/28/2018 - no acute fracture or dislocation. Abdominal flat plate x-ray on 03/02/2018 - hold normal caliber colon, no evidence of obstruction, degenerative changes and left hip and lumbar spine. Left lower extremity arterial ultrasound on 03/03/2018 - unable to obtain ANTHONY or Doppler measurements due to ulcer; normal triphasic waveforms and normal velocities from other lower extremity arteries; no evidence of arterial stenosis. Limited abdominal ultrasound on 03/10/2018 - mild splenomegaly with a splenic index of 850 and the normal range less than 480, no discrete splenic mass, subcapsular hematoma or adjacent ascites, multiple renal cysts as described, similar to that seen on CT 2 years ago, no hydronephrosis. CT chest without contrast on 03/14/2018 - Right-sided tunnel catheter. Multiple recent anterior and possibly posterior rib fractures noted bilaterally. Gallstones. Elevated right hemidiaphragm. No evidence of adenopathy. CT abdomen and pelvis without contrast on 03/14/2018 - No evidence of lymphadenopathy. Mild splenomegaly. Multiple bilateral renal cysts. Anderson catheter. Echocardiogram: Left ventricular diastolic dysfunction, dilated right heart chambers with hypokinesis of right ventricular free wall, moderate pulmonary hypertension. DVT prophylaxis ordered?: TEDs, sequentials, knee high compression. 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 Multifactorial etiology. PROBLEMS: 1. Critical illness myopathy: Continues to make improvements with physical and occupational therapy. Both services have recommended that patient be out of bed in stretcher chair. Patient will only be safe for discharge to in-patient rehabilitation once medically cleared. Bilateral MPO boots. Patient and family services are working towards obtaining a hemod[email or web address]. Continue to work towards independent transfers and placement for rehabilitation. Continue current management. 2. Acute renal failure superimposed on chronic kidney disease: Nephrology is consulted. Patient continues with hemodialysis. He has converted to nonoliguric renal failure. Hemodialysis removed 2 L on 03/16/2018. Patient is on Aranesp. Perm-A-Cath has been placed. Heparin ordered to flush catheter only. Prior GFR was 49.1. Renal recovery may bes possible. Will continue to monitor closely. Renal diet. Nepro supplementation ordered. Electrolyte management by hemodialysis and nephrology recommendations. Corrected calcium is 9.6. Patient may be discharged to rehabilitative unit when medically cleared and may continue hemodialysis for acute renal failure as an outpatient. 3. Pancytopenia: Hematology/oncology consulted. Patient has been thrombocytopenic and anemic in the past, possibly due to ITP or recent recovery from DIC. Recommend work-up for celiac disease once stabilized. Leukopenia is new. Recommendations include obtaining peripheral blood for flow cytometry, FISH for cytogenetics to rule out MDS, hemolysis labs (haptoglobin which is normal and ZACK), DIC work-up (D-dimer which is elevated, fibrinogen which is within normal limits, and coagulation studies which reveal a marginally elevated PT), CPK (normal), anti-platelet antibodies which are negative, and imaging studies to identify lymphadenopathy (which are negative). Heparin and Aspirin have been discontinued. Status-post 2 units of PRBC with an appropriate response in hemoglobin. HIT antibody positive, although DOLLY was negative. Prior peripheral smear obtained which revealed "Anemia with minimal macrocytosis and few circulating nucleated red blood cells, likely multifactorial. No abnormal immature leukocytes identified. Mild thrombocytopenia with essentially normal platelet morphology." Hypoproliferation as indicated by reticulocyte index. No signs of active bleeding. TEDs and sequentials with knee high compression. Repeat peripheral smear revealed "Continued macrocytic anemia with pancytopenia. No blast forms identified." 4. Macrocytic anemia: Repeat peripheral smear as noted in #3. Iron studies appears to reveal anemia of chronic disease. Vitamin B12 level within normal limits (961); folate level is within normal limits. 5. Acute hypercarbic hypoxic respiratory failure: Required intubation and mechanical ventilation. Successfully extubated. Patient is currently saturating 92% on room air. This is appropriate. Continue Acapella. 6. New onset atrial fibrillation with rapid ventricular response: Patient converted to normal sinus rhythm. Cardiology consulted. Continue Amiodarone 200mg by mouth thrice daily. Continue Carvedilol to 3.125mg by mouth every 6 hours with hold parameters and Lipitor 40mg by mouth nightly. Patient may benefit from cardiac evaluation with angiography; however, patient remains on hemodialysis and has a thrombocytopenia so further invasive cardiac evaluation is on hold for the time being. 7. Elevated troponin with lactic acidosis: Likely secondary to demand ischemia from hypoperfusion that required extensive pressor support. Echocardiogram obtained as resulted above. Cardiology consulted with recommendations for possible further cardiac intervention once patient is stabilized from a medical standpoint, if possible. Discontinued Aspirin. No nephrotoxic agents given acute tubular necrosis and currently requiring hemodialysis. Continue Atorvastatin. Continue with beta-geri. 8. Shock liver: Resolved. Continue statin therapy. 9. Possible acute occult fracture of left knee: Orthopedics initially consulted. Recommended vascular surgery consultation. No surgical intervention secondary to patient's significant comorbidities. Patient may be weightbearing as tolerated, per updated orthopedic recommendations. Left lower extremity arterial Doppler ultrasound obtained. Limited secondary to ulcer on posterior aspect of left lower leg; however, no arterial stenosis noted in other arteries of the left lower extremity. Patient may use orthopedic brace. Discussed left lower extremity amputation (as has been discussed with patient previously). Continue with physical and occupational therapy. 10. 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 Wound bases are clean and non-malodorous. Completed a ten-day course of antibiotic therapy. Blood cultures negative. Dressing changes with OptiLock, Kerlix, and Coban. 11. CAUTI: Likely result of chronic indwelling Anderson catheter. Anderson catheter has been removed. No urinary complaints. Bladder scans ordered. Completed 10- day antibiotic course. 12. Alcohol dependence: Patient has significant alcohol history. No withdrawal symptoms during hospital course. Have started Folic acid and Multivitamin. No need for Benzodiazepine at this time. 13. Depression: Continue with Fluoxetine. 14. Dermatitis: Resolved. Continue with Clobetasol twice daily as needed for 4 weeks. 15. Cough with sputum production: Afebrile. Chest x-ray obtained was without acute infiltrate. Continue with Robitussin and suctioning. 16. Right shoulder pain: Apply K-pad to right shoulder. Could consider topical Lidocaine or other topical anesthetic agent for symptomatic relief. DISPOSITION: Continue physical and occupational therapy. Continue hemodialysis. Prolonged hospital course. Potential transfer to rehabilitative unit once patient is able to transfer independently into wheelchair. VS, I&O, 24H, Fishbone Vital Signs/I&O Vital Signs Date Time Temp Pulse Resp B/P (MAP) Pulse Ox O2 Delivery O2 Flow Rate FiO2 03/17/18 13:02 78 124/70 03/17/18 10:23 15 03/17/18 06:00 98.1 95 03/17/18 02:00 Room Air 03/16/18 06:02 2.0 I&O- Last 24 Hours up to 6 AM 03/17/18 06:00 Intake Total 1400 ml Output Total 3400 ml Balance -2000 ml Laboratory Data 24H LABS Laboratory Tests 2 03/17/18 05:50: Nucleated Red Blood Cells % (auto) 0.0, Anion Gap 6L, Glomerular Filtration Rate 23.2L, Blood Urea Nitrogen 16, Creatinine 2.95H, Sodium Level 137, Potassium Level 3.8, Chloride Level 102, Carbon Dioxide Level 29, Calcium Level 8.1L, Aspartate Amino Transf (AST/SGOT) 21, Alanine Aminotransferase (ALT/SGPT) 21, Alkaline Phosphatase 187H, Total Bilirubin 0.7, Total Protein 7.7, Albumin 1.8L, Albumin/Globulin Ratio 0.31L CBC/BMP Laboratory Tests 03/17/18 05:50 Red Blood Count 3.25 L, Mean Corpuscular Volume 99.4 H, Mean Corpuscular Hemoglobin 31.1, Mean Corpuscular Hemoglobin Concent 31.3 L, Red Cell Distribution Width 15.7 H, Calcium Level 8.1 L, Aspartate Amino Transf (AST/SGOT) 21, Alanine Aminotransferase (ALT/SGPT) 21, Alkaline Phosphatase 187 H, Total Bilirubin 0.7, Total Protein 7.7, Albumin 1.8 L Microbiology Microbiology 03/10/18 Clostridium difficile (PCR) - Final, Complete CARMINE COCHRAN DO Mar 17, 2018 14:04
--- NOTE | 2018-03-17 21:16 | IPN ---
DATE: 03/17/2018 Mr. Eng is seen this morning on his bedside. He is complaining of pain in his right shoulder and has been very weak and unable to get up. Nursing staff reports that he is not very motivated to get out of bed. The patient denies any nausea, vomiting, dyspnea, chest pain, fever, or chills. He was dialyzed yesterday. PHYSICAL EXAMINATION: Temperature 97.8 degrees Fahrenheit, heart rate 78 per minute, respiratory rate 16 per minute, blood pressure 124/70 mm of mercury, and oxygen saturation 94% on room air. His head is atraumatic. Neck is supple, and jugular venous distention (JVD) is are not abnormally elevated. His heart sounds are regular and lungs with diminished breath sounds and no wheezing or rales. Abdomen is obese and nontender. Bowel sounds are present. Extremities have no cyanosis or clubbing. There is 1+ lower extremity edema. Neurologically, he is awake and able to answer all questions appropriately. He is very weak and not able to get up or ambulate. Today's labs show WBC count 4.1, hemoglobin 10.1, and hematocrit 32.3. Platelets are 75,000. Sodium 137, potassium 3.8, CO2 of 29, BUN 16, and creatinine 2.95. Calcium level is 8.1. PROBLEMS: 1. Acute renal failure superimposed on chronic kidney disease. The patient has been dialysis dependent, and he was dialyzed yesterday. We will re-evaluate him for next dialysis on Monday. He seems to have increasing urine output and may have partial recovery of his kidney function. 2. Hyponatremia. Sodium level has improved and corrected. We will continue to monitor his electrolytes. 3. Anemia. Anemia is stable at this point and does not need any intervention. 4. Thrombocytopenia, chronic and stable and does not need any urgent intervention. 6. Generalized weakness and deconditioning. The patient remains very weak, and I have discussed with him and encouraged to get out of bed. I have also talked with the nursing staff and advised them to get him out of bed in the stretcher chair more frequently.
[2018-03-17] MEDS: ATORVASTATIN 20 MG TAB PO SCH (21:57)
[2018-03-17] MEDS: traZODone 100 MG TAB PO SCH (21:57)
[2018-03-17 22:00] VITALS: BP 144/80
[2018-03-18 06:00] VITALS: BP 117/68
[2018-03-18] MEDS: CARVedilol 3.125 MG TAB PO SCH ×3 (06:06→17:39)
[2018-03-18] MEDS: SLF 3 ML SYR IV SCH ×3 (06:06→21:20)
[2018-03-18 06:23] LABS: HEMATOCRIT 32.3 % (42.0-52.0); MEAN CORPUSCULAR HEMOGLOBIN 30.7 pg (27.0-33.0); MEAN CORPUSCULAR VOLUME 99.1 fl (80.0-96.0); RED BLOOD COUNT 3.26 10^6/uL (4.30-6.10); WHITE BLOOD COUNT 4.6 10^3/uL (4.0-10.0)
[2018-03-18 06:25] LABS: PLATELET COUNT, AUTOMATED 86 10^3/uL (150-450)
[2018-03-18 06:41] LABS: ALBUMIN 1.7 GM/DL (3.2-5.2); BILIRUBIN,TOTAL 0.7 MG/DL (0.2-1.0); CALCIUM LEVEL 8.1 MG/DL (8.8-10.2); CREATININE FOR GFR 3.78 MG/DL (0.70-1.30); GLOMERULAR FILTRATION RATE 17.4 (>49); POTASSIUM SERUM 3.8 MEQ/L (3.5-5.1); TOTAL PROTEIN 7.7 GM/DL (6.4-8.2)
[2018-03-18] MEDS: NYSTATIN 100,000 UNITS/GM TOPICAL PWD 15 GM TOP SCH ×2 (09:00→21:21)
[2018-03-18] MEDS: EUCERIN 120GM CREAM TOP SCH ×2 (09:00→21:21)
[2018-03-18] MEDS: FLUoxetine 20 MG CAP PO SCH (09:23)
[2018-03-18] MEDS: AMIODARONE 200 MG TAB (PACERONE) PO SCH ×2 (09:23→21:19)
[2018-03-18] MEDS: PREGABALIN 100 MG CAP (LYRICA) PO SCH ×2 (09:23→21:19)
[2018-03-18] MEDS: PERCOCET 5MG/325MG TAB PO PRN ×2 (09:23→17:38)
[2018-03-18] MEDS: MULTIVITAMINS/MINERALS THERAP 1 TAB PO SCH (09:23)
[2018-03-18] MEDS: PANTOPRAZOLE 40MG TAB (PROTONIX) PO SCH (09:23)
[2018-03-18] MEDS: FOLIC ACID 1 MG TAB PO SCH (09:24)
--- NOTE | 2018-03-18 11:09 | IPNPDOC ---
Text Note Date of Service The patient was seen on 03/18/18. NOTE SUBJECTIVE: Patient is a 62-year-old male with fall for which he was evaluated by orthopedic surgery and determined that no intervention was required. Chronic left lower extremity wound and chronic indwelling Anderson catheter with both revealing microbial activity. Patient started on antibiotics. 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 He underwent for cardiopulmonary resuscitative events with successful return of spontaneous circulation obtained after each event. Patient was intubated, mechanically ventilated, and placed on three pressors. Elevated troponin without ST elevation possibly secondary to demand ischemia. Poor renal perfus ion with anuria requiring hemodialysis. Successfully extubated on 02/24/2018 and transferred to hospitalist service. Patient is evaluated at bedside this morning. Patient reports continued right posterior shoulder pain. Overall though he states he feels somewhat tired. Denies chest pain, shortness of breath, nausea, vomiting, abdominal pain, fever, night sweats, chills. Required urinary bladder straight catheterization, but subsequent voids have occurred spontaneously. OBJECTIVE: VITAL SIGNS: Please see below. GENERAL: NAD, lying comfortably in bed, in good spirits, morbidly obese HEENT: NC/AT, EOMI CARDIOVASCULAR: +S1S2, RRR, permacath right anterior chest, area is C/D/I RESPIRATORY: CTA B/L ABDOMINAL: Morbid, soft, nondistended, nontender to palpation, +BS EXTREMITIES: b/l chronic venous stasis changes; +1 pitting peripheral edema on bilateral lower extremities; dressings in place NEUROLOGICAL: No gross focal neurological deficits. ASSESSMENT AND PLAN: This is a 62-year-old male with multiple co- morbidities and a complicated hospital course that required intubation, mechanical ventilation, and pressor support due to multifactorial etiology. PROBLEMS: 1. Critical illness myopathy: Continues to make improvements with physical and occupational therapy. Both services have recommended that patient be out of bed in stretcher chair. Patient will only be safe for discharge to in-patient rehabilitation once medically stable. Bilateral MPO boots. PFS are working towards obtaining a hemodialysis chair at [facility]. Continue to work towards independent transfers and placement for rehabilitation. Continue current management. 2. ALVIN/CKD: Nephrology is consulted. Patient continues with hemodialysis. Perm-A-Cath has been placed. Renal recovery may be possible. Renal diet. Nepro supplementation ordered. Continue hemodialysis as an outpatient. 3. Pancytopenia: Hematology/oncology consulted. Patient has been thrombocytopenic and anemic in the past, possibly due to ITP or recent recovery from DIC. Recommend work-up for celiac disease once stabilized. Leukopenia is new. Recommendations include obtaining peripheral blood for flow cytometry, FISH for cytogenetics to rule out MDS, hemolysis labs (haptoglobin which is normal and ZACK), DIC work-up (D-dimer which is elevated, fibrinogen which is within normal limits, and coagulation studies which reveal a marginally elevated PT), CPK (normal), anti-platelet antibodies which are negative, and imaging studies to identify lymphadenopathy (which are negative). Heparin and Aspirin have been discontinued. Status-post 2 units of PRBC with an appropriate response in hemoglobin. HIT antibody positive, although DOLLY was negative. Prior peripheral smear obtained which revealed "Anemia with minimal macrocytosis and few circulating nucleated red blood cells, likely multifactorial. No abnormal immature leukocytes identified. Mild thrombocytopenia with essentially normal platelet morphology." Hypoproliferation as indicated by reticulocyte index. No signs of active bleeding. TEDs and sequentials with knee high compression. Repeat peripheral smear revealed "Continued macrocytic anemia with pancytopenia. No blast forms identified." 4. Macrocytic anemia: Repeat peripheral smear as noted in #3. Iron studies appears to reveal anemia of chronic disease. Vitamin B12 level within normal limits (961); folate level is within normal limits. 5. Acute hypercarbic hypoxic respiratory failure: Resolved s/p intubation and mechanical ventilation. Successfully extubated. Patient is currently sa turating 92% on room air. This is appropriate. Continue Acapella. 6. New onset a-fib/RVR: Patient converted to normal sinus rhythm. Cardiology consulted. Continue Amiodarone 200mg by mouth thrice daily. Continue Carvedilol to 3.125mg by mouth every 6 hours with hold parameters and Lipitor 40mg by mouth nightly. Patient may benefit from cardiac evaluation with angiography; however, patient remains on hemodialysis and has a thrombocytopenia so further invasive cardiac evaluation is on hold for the time being. 7. Troponinemia with lactic acidosis: Likely secondary to demand ischemia from hypoperfusion that required extensive pressor support. Echocardiogram obtained as resulted above. Cardiology consulted with recommendations for possible further cardiac intervention once patient is stabilized from a medical standpoint, if possible. Discontinued Aspirin. No nephrotoxic agents given acute tubular necrosis and currently requiring hemodialysis. Continue Atorvastatin. Continue with beta-geri. 8. Shock liver: Resolved. Continue statin therapy. 9. Possible acute occult fracture of left knee: Orthopedics initially consulted. Recommended vascular surgery consultation. No surgical intervention secondary to patient's significant comorbidities. Patient may be weightbearing as tolerated, per updated orthopedic recommendations. Left lower extremity arterial Doppler ultrasound obtained. Limited secondary to ulcer on posterior aspect of left lower leg; however, no arterial stenosis noted in other arteries of the left lower extremity. Patient may use orthopedic brace. Discussed left lower extremity amputation (as has been discussed with patient previously). Continue with physical and occupational therapy. 10. 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 Wound bases are clean and non-malodorous. Completed a ten-day course of antibiotic therapy. Blood cultures negative. Dressing changes with OptiLock, Kerlix, and Coban. 11. CAUTI: Likely result of chronic indwelling Anderson catheter. Anderson catheter has been removed. No urinary complaints. Bladder scans ordered. Completed 10- day antibiotic course. 12. Alcohol dependence: Patient has significant alcohol history. No withdrawal symptoms during hospital course. Have started Folic acid and Multivitamin. No need for Benzodiazepine at this time. 13. Depression: Continue with Fluoxetine. 14. Dermatitis: Resolved. Continue with Clobetasol twice daily as needed for 4 weeks. 15. Cough with sputum production: Afebrile. Chest x-ray obtained was without acute infiltrate. Continue with Robitussin and suctioning. 16. Right shoulder pain: Apply K-pad to right shoulder. Could consider topical Lidocaine or other topical anesthetic agent for symptomatic relief. DISPOSITION: Continue PT/OT. Continue hemodialysis. Prolonged hospital course. Potential transfer to rehabilitative unit once patient is able to transfer independently into wheelchair. VS,Nadeembone, I+O VS, Fishbone, I+O Laboratory Tests 03/18/18 05:38 Red Blood Count 3.26 L, Mean Corpuscular Volume 99.1 H, Mean Corpuscular Hemoglobin 30.7, Mean Corpuscular Hemoglobin Concent 31.0 L, Red Cell Distribution Width 15.6 H, Calcium Level 8.1 L, Aspartate Amino Transf ( AST/SGOT) 23, Alanine Aminotransferase (ALT/SGPT) 19, Alkaline Phosphatase 191 H, Total Bilirubin 0.7, Total Protein 7.7, Albumin 1.7 L Vital Signs Date Time Temp Pulse Resp B/P (MAP) Pulse Ox O2 Delivery O2 Flow Rate FiO2 03/18/18 09:53 16 03/18/18 06:06 78 117/68 03/18/18 06:00 97.2 93 Room Air 03/16/18 06:02 2.0 I&O- Last 24 Hours up to 6 AM 03/18/18 06:00 Intake Total 1088 ml Output Total 1765 ml Balance -677 ml KLEVER LAIRD MD Mar 18, 2018 11:09
--- NOTE | 2018-03-18 12:41 | IPN ---
DATE: 03/18/2018 Mr. Eng is seen this morning on his bedside. No change in his condition is noted since yesterday. He reports improved pain in his right shoulder. He did not get out of bed yesterday and reports that nursing staff did not get him out for lunch. I have talked to the nursing staff and they report that the patient refused plainly and was also quite upset with the nursing staff yesterday. In the meantime he remains bed-bound with minimal activity. He denies any nausea or vomiting. He had urinary retention and did have straight catheter done yesterday with 600 mL urine output. His total urine output recorded was about 2.5 liters over last 24 hours. His head is atraumatic. Neck is supple and jugular venous distention (JVD) is not elevated. There is no oral thrush or ulcers. Heart: Sounds are regular and lungs with diminished breath sounds at dependent parts. Abdomen is obese, soft and nontender and bowel sounds are normal. Extremities have no cyanosis or clubbing. Lower extremity edema is about 1+. Neurologically he is at his baseline mentation. Today's labs show WBC count 4.6, hemoglobin 10.0 and hematocrit 32.3. Platelets are 86,000. Sodium is 136, potassium 3.8, CO2 30, BUN 23 and creatinine 3.78. Glucose 91 and calcium 8.1. PROBLEMS: 1. Acute renal failure superimposed on chronic kidney disease. The patient has known history of stage III to stage IV of chronic kidney even at baseline. He had oliguric renal failure due to septic shock and multiple episodes of cardiac arrest. His urine output seems to be improving. However, BUN and creatinine are still increasing every day. I am going to watch him for next 24-48 hours without dialysis and will see how his kidney function does. 2. Anemia. Anemia is stable at present and no specific intervention is indicated. He has been receiving Aranesp and oral iron. 3. Generalized weakness and deconditioning. The patient remains bed-bound and I have encouraged him again today about getting out of bed. I have also discussed with nursing staff and we will continue our efforts to push him to get out of bed so we can increase his activity and also start with physical therapy.
[2018-03-18 14:00] VITALS: BP 138/76
[2018-03-18] MEDS: ATORVASTATIN 20 MG TAB PO SCH (21:19)
[2018-03-18] MEDS: traZODone 100 MG TAB PO SCH (21:19)
[2018-03-18 22:00] VITALS: BP 143/79
[2018-03-19] MEDS: CARVedilol 3.125 MG TAB PO SCH ×4 (00:23→19:26)
[2018-03-19 06:00] VITALS: BP 146/86
[2018-03-19 06:09] LABS: HEMOGLOBIN 9.9 g/dl (13.5-17.5); MEAN CORPUSCULAR HEMOGLOBIN 30.9 pg (27.0-33.0); MEAN CORPUSCULAR HGB CONC 31.9 g/dl (32.0-36.5); MEAN CORPUSCULAR VOLUME 96.9 fl (80.0-96.0); PLATELET COUNT, AUTOMATED 101 10^3/uL (150-450); WHITE BLOOD COUNT 4.5 10^3/uL (4.0-10.0)
[2018-03-19] MEDS: FLUoxetine 20 MG CAP PO SCH (06:17)
[2018-03-19] MEDS: FOLIC ACID 1 MG TAB PO SCH (06:17)
[2018-03-19] MEDS: PANTOPRAZOLE 40MG TAB (PROTONIX) PO SCH (06:17)
[2018-03-19] MEDS: PREGABALIN 100 MG CAP (LYRICA) PO SCH ×2 (06:17→22:12)
[2018-03-19] MEDS: AMIODARONE 200 MG TAB (PACERONE) PO SCH ×2 (06:17→22:12)
[2018-03-19] MEDS: MULTIVITAMINS/MINERALS THERAP 1 TAB PO SCH (06:18)
[2018-03-19] MEDS: EUCERIN 120GM CREAM TOP SCH ×2 (06:18→22:13)
[2018-03-19] MEDS: SLF 3 ML SYR IV SCH ×3 (06:19→22:12)
[2018-03-19] MEDS: NYSTATIN 100,000 UNITS/GM TOPICAL PWD 15 GM TOP SCH ×2 (06:19→22:10)
[2018-03-19 06:36] LABS: ALBUMIN 1.8 GM/DL (3.2-5.2); BILIRUBIN,TOTAL 0.7 MG/DL (0.2-1.0); CALCIUM LEVEL 8.1 MG/DL (8.8-10.2); CREATININE FOR GFR 4.25 MG/DL (0.70-1.30); GLOMERULAR FILTRATION RATE 15.2 (>49); POTASSIUM SERUM 3.6 MEQ/L (3.5-5.1); TOTAL PROTEIN 7.4 GM/DL (6.4-8.2)
[2018-03-19] MEDS ORDERED: HEPARIN 1,000 UNITS/ML 10ML VIAL (FOR RADIOLOGY& DIALYSIS ONLY) XX ONE (12:00)
--- NOTE | 2018-03-19 12:38 | IPNPDOC ---
Date Seen The patient was seen on 03/19/18. Progress Note SUBJECTIVE: Patient is a 62-year-old male with fall for which he was evaluated by orthopedic surgery and determined that no intervention was required. Chronic left lower extremity wound and chronic indwelling Anderson catheter with both revealing microbial activity. Patient started on a ntibiotics. Patient was found unresponsive foot and ankle surgeon of 02/19/2018. He underwent for cardiopulmonary resuscitative events with successful return of spontaneous circulation obtained after each event. Patient was intubated, mechanically ventilated, and placed on three pressors. Elevated troponin without ST elevation possibly secondary to demand ischemia. Poor renal perfusion with anuria requiring hemodialysis. Successfully extubated on 02/24/2018 and transferred to hospitalist service. Patient is evaluated at bedside this morning. He denies chest pain, shortness of breath, nausea, vomiting, abdominal pain, headache, fever, night sweats, chills. He states that he did get up into the bedside stretcher chair yesterday. He also states that he urinated without assistance. Continue with hemodialysis for the time being. OBJECTIVE PHYSICAL EXAMINATION: VITAL SIGNS: Please see below. GENERAL: Morbidly obese male, alert and conversant, appropriately dressed in hospital attire, in no acute distress. HEENT: Atraumatic, normocephalic, PERRL, EOMI, oral mucosa appears pink and moist, nasal septum appears midline, nares are patent, dentition is poor. CARDIOVASCULAR: Regular heart rate and rhythm, normal S1 and S2, no audible murmur, rub, click, Perm-A-Cath noted on right sided anterior chest. RESPIRATORY: Limited exam secondary to body habitus, bronchial breath sounds appreciated anteriorly, rhonchorous throughout, symmetric airway entry, no audible focal consolidations, no wheeze, crackles. ABDOMINAL: Morbid, soft, nondistended, nontender to palpation, bowel sounds appreciated throughout, no apparent guarding or rebound, difficult to assess organomegaly due to body habitus. EXTREMITIES: Left lower extremity is wrapped in OptiLock and Coban, chronic venous stasis noted on bilateral lower extremities, +1 pitting peripheral edema on bilateral lower extremities, no clubbing, no cyanosis, no visible skin rashes or lesions. NEUROLOGICAL: No focal neurological deficits. PSYCHOLOGICAL: Mood and affect appear appropriate. LABORATORY DATA, IMAGING STUDIES, MICROBIOLOGY: Please see below. Right complete shoulder x-ray on 02/28/2018 - no acute fracture or dislocation. Abdominal flat plate x-ray on 03/02/2018 - hold normal caliber colon, no evidence of obstruction, degenerative changes and left hip and lumbar spine. Left lower extremity arterial ultrasound on 03/03/2018 - unable to obtain ANTHONY or Doppler measurements due to ulcer; normal triphasic waveforms and normal velocities from other lower extremity arteries; no evidence of arterial stenosis. Limited abdominal ultrasound on 03/10/2018 - mild splenomegaly with a splenic index of 850 and the normal range less than 480, no discrete splenic mass, subcapsular hematoma or adjacent ascites, multiple renal cysts as described, similar to that seen on CT 2 years ago, no hydronephrosis. CT chest without contrast on 03/14/2018 - Right-sided tunnel catheter. Multiple recent anterior and possibly posterior rib fractures noted bilaterally. Gallstones. Elevated right hemidiaphragm. No evidence of adenopathy. CT abdomen and pelvis without contrast on 03/14/2018 - No evidence of lymphadenopathy. Mild splenomegaly. Multiple bilateral renal cysts. Anderson catheter. Echocardiogram: Left ventricular diastolic dysfunction, dilated right heart chambers with hypokinesis of right ventricular free wall, moderate pulmonary hypertension. DVT prophylaxis ordered?: TEDs, sequentials, knee high compression. ASSESSMENT AND PLAN: This is a 62-year-old male with multiple co- morbidities and a complicated hospital course that required intubation, mechanical ventilation, and pressor support. Multifactorial etiology. PROBLEMS: 1. Critical illness myopathy: Continues to make improvements with physical and occupational therapy. Both services have recommended that patient be out of bed in stretcher chair. Patient will only be safe for discharge to in-patient rehabilitation once medically cleared. Bilateral MPO boots. Patient and family services are working towards obtaining a hemodialysis chair at [facility]. Continue to work towards independent transfers and placement for rehabilitation. Continue current management. 2. Acute renal failure superimposed on chronic kidney disease: Nephrology is consulted. Patient continues with hemodialysis. He has converted to nonoliguric renal failure. Hemodialysis removed 2 L on 03/16/2018. Patient is on Aranesp. Perm-A-Cath has been placed. Heparin ordered to flush catheter only. Prior GFR was 49.1. Renal recovery may bes possible. Will continue to monitor closely. Renal diet. Nepro supplementation ordered. Electrolyte management by hemodialysis and nephrology recommendations. Corrected calcium is 9.9. Patient may be discharged to rehabilitative unit when medically cleared and may continue hemodialysis for acute renal failure as an outpatient. 3. Pancytopenia: Hematology/oncology consulted. Patient has been thromboc ytopenic and anemic in the past, possibly due to ITP or recent recovery from DIC. Recommend work-up for celiac disease once stabilized. Leukopenia is new and has resolved. Recommendations include obtaining peripheral blood for flow cytometry which revealed "reactive lymphocyte subsets with no evidence of acute leukemia or non-Hodgkin lymphoma", FISH for cytogenetics to rule out MDS, hemolysis labs (haptoglobin which is normal and ZACK), DIC work-up (D-dimer which is elevated, fibrinogen which is within normal limits, and coagulation studies which reveal a marginally elevated PT), CPK (normal), anti-platelet antibodies which are negative, and imaging studies to identify lymphadenopathy (which are negative). Heparin and Aspirin have been discontinued. Status-post 2 units of PRBC with an appropriate response in hemoglobin. HIT antibody positive, although DOLLY was negative. Prior peripheral smear obtained which revealed "Anemia with minimal macrocytosis and few circulating nucleated red blood cells, likely multifactorial. No abnormal immature leukocytes identified. Mild thrombocytopenia with essentially normal platelet morphology." Hypoproliferation as indicated by reticulocyte index. No signs of active bleeding. TEDs and sequentials with knee high compression. Repeat peripheral smear revealed "Continued macrocytic anemia with pancytopenia. No blast forms identified." Thrombocytopenia is improving. Pathology suggests evaluating if pancytopenia persists for the following "vitamin deficiency, viral infection, and environmental/toxin exposure; bone marrow biopsy may be helpful to identify the cause." 4. Macrocytic anemia: Repeat peripheral smear as noted in #3. Iron studies appears to reveal anemia of chronic disease. Vitamin B12 level within normal limits (961); folate level is within normal limits. 5. Acute hypercarbic hypoxic respiratory failure: Required intubation and mechanical ventilation. Successfully extubated. Patient is currently saturating 95% on room air. This is appropriate. Continue Acapella. Added incentive spirometry. 6. New onset atrial fibrillation with rapid ventricular response: Patient converted to normal sinus rhythm. Cardiology consulted. Continue Amiodarone 200mg by mouth thrice daily. Continue Carvedilol to 3.125mg by mouth every 6 hours with hold parameters and Lipitor 40mg by mouth nightly. Patient may benefit from cardiac evaluation with angiography; however, patient remains on hemodialysis and has a thrombocytopenia so further invasive cardiac evaluation is on hold for the time being. 7. Elevated troponin with lactic acidosis: Likely secondary to demand ischemia from hypoperfusion that required extensive pressor support. Echocardiogram obtained as resulted above. Cardiology consulted with recommendations for possible further cardiac intervention once patient is stabilized from a medical standpoint, if possible. Discontinued Aspirin. No nephrotoxic agents given acute tubular necrosis and currently requiring hemodialysis. Continue Atorvastatin. Continue with beta-geri. 8. Shock liver: Resolved. Continue statin therapy. 9. Possible acute occult fracture of left knee: Orthopedics initially consulted. Recommended vascular surgery consultation. No surgical intervention secondary to patient's significant comorbidities. Patient may be weightbearing as tolerated, per updated orthopedic recommendations. Left lower extremity arterial Doppler ultrasound obtained. Limited secondary to ulcer on posterior aspect of left lower leg; however, no arterial stenosis noted in other arteries of the left lower extremity. Patient may use orthopedic brace. Discussed left lower extremity amputation (as has been discussed with patient previously). Continue with physical and occupational therapy. 10. 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 Wound bases are clean and non-malodorous. Completed a ten-day course of antibiotic therapy. Blood cultures negative. Dressing changes with OptiLock, Kerlix, and Coban. 11. CAUTI: Likely result of chronic indwelling Anderson catheter. Anderson catheter has been removed. No urinary complaints. Bladder scans ordered. Completed 10- day antibiotic course. 12. Alcohol dependence: Patient has significant alcohol history. No withdrawal symptoms during hospital course. Have started Folic acid and Multivitamin. No need for Benzodiazepine at this time. 13. Depression: Continue with Fluoxetine. 14. Dermatitis: Resolved. Continue with Clobetasol twice daily as needed for 4 weeks. 15. Cough with sputum production: Afebrile. Chest x-ray obtained was without acute infiltrate. Continue with Robitussin and suctioning. 16. Right shoulder pain: Apply K-pad to right shoulder. Could consider topical Lidocaine or other topical anesthetic agent for symptomatic relief. DISPOSITION: Continue physical and occupational therapy. Continue hemodialysis. Prolonged hospital course. Potential transfer to rehabilitative unit once patient is able to transfer independently into wheelchair. VS, I&O, 24H, Fishbone Vital Signs/I&O Vital Signs Date Time Temp Pulse Resp B/P (MAP) Pulse Ox O2 Delivery O2 Flow Rate FiO2 03/19/18 12:27 77 125/75 03/19/18 06:00 98.5 17 95 Room Air 03/16/18 06:02 2.0 I&O- Last 24 Hours up to 6 AM 03/19/18 06:00 Intake Total 1840 ml Output Total 2175 ml Balance -335 ml Laboratory Data 24H LABS Laboratory Tests 2 03/19/18 05:35: Nucleated Red Blood Cells % (auto) 0.0, Anion Gap 8, Glomerular Filtration Rate 15.2L, Blood Urea Nitrogen 34H, Creatinine 4.25H, Sodium Level 136, Potassium Level 3.6, Chloride Level 99, Carbon Dioxide Level 29, Calcium Level 8.1L, Aspartate Amino Transf (AST/SGOT) 22, Alanine Aminotransferase (ALT/SGPT) 17, Alkaline Phosphatase 192H, Total Bilirubin 0.7, Total Protein 7.4, Albumin 1.8L, Albumin/Globulin Ratio 0.32L CBC/BMP Laboratory Tests 03/19/18 05:35 Red Blood Count 3.20 L, Mean Corpuscular Volume 96.9 H, Mean Corpuscular Hemoglobin 30.9, Mean Corpuscular Hemoglobin Concent 31.9 L, Red Cell Distribution Width 15.5 H, Calcium Level 8.1 L, Aspartate Amino Transf (AST/SGOT) 22, Alanine Aminotransferase (ALT/SGPT) 17, Alkaline Phosphatase 192 H, Total Bilirubin 0.7, Total Protein 7.4, Albumin 1.8 L Microbiology Microbiology 03/10/18 Clostridium difficile (PCR) - Final, Complete CARMINE COCHRAN DO Mar 19, 2018 12:38
--- NOTE | 2018-03-19 12:50 | IPN ---
DATE: 03/19/2018 Mr. Eng is seen this morning on his bedside. He was sleeping at the time of my visit and I woke him up. Nursing staff reports that he did get out of bed in the stretcher chair yesterday. He remains very weak and limited to bed most of the time. He denies any dyspnea, chest pain, nausea or vomiting. He has been urinating and also requires a straight cath at times due to urinary retention. On physical exam, temperature 98.5 degrees Fahrenheit, heart rate 77 per minute and respiratory rate 17 per minute. Blood pressure 125/75 mmHg and oxygen saturation 95% on room air. His head is atraumatic. Neck is supple and without jugular venous distention (JVD) or thyroid enlargement. There is no oral thrush or ulcers. Heart sounds are regular and lungs with diminished breath sounds and no wheezing or rales audible. Abdomen is obese, soft and nontender and bowel sounds are present. Extremities have no cyanosis or clubbing. Neurologically, he is awake, alert and at his baseline mentation. Intake and output records from yesterday showed total intake 1540 and output 2100 mL. Today's labs show WBC count 4.5, hemoglobin 9.9 and hematocrit 31.0. Platelets 101. Sodium is 136, potassium 3.6, CO2 29, BUN 34 and creatinine 4.25. Glucose 82 and calcium 8.1. PROBLEMS: 1. Acute renal failure superimposed on chronic kidney disease. Patient is known to have stage IV of chronic kidney disease at baseline. He had multiple cardiac arrests and was hypotensive for a long time. Required pressors for several days due to which he has prolonged acute renal failure. However, his urine output is now improving. His BUN and creatinine still increased so we will go ahead and dialyze him today and then continue monitoring. 2. Hypokalemia. Potassium level is borderline and we will use a 4.0 mEq potassium bath today. 3. Anemia. His anemia is stable at this point and he will continue to receive Aranesp once a week. 4. Thrombocytopenia. He is not receiving any heparin and platelets are improving. We will continue to watch closely. There is no active bleeding. 5. Generalized weakness and deconditioning. Patient remains very weak and not moving much. He is being encouraged and nursing staff is being advised to get him out of bed in stretcher chair as frequently as possible.
[2018-03-19 16:20] VITALS: BP 157/92
[2018-03-19 22:00] VITALS: BP 135/80
[2018-03-19] MEDS: ATORVASTATIN 20 MG TAB PO SCH (22:11)
[2018-03-19] MEDS: traZODone 100 MG TAB PO SCH (22:11)
[2018-03-19] MEDS: PERCOCET 5MG/325MG TAB PO PRN (22:16)
[2018-03-20 00:45] VITALS: BP 144/78
[2018-03-20] MEDS: CARVedilol 3.125 MG TAB PO SCH ×4 (01:02→17:21)
[2018-03-20] MEDS: ONDANSETRON 4MG/2ML VIAL (J2405) IV PRN (04:19)
[2018-03-20 06:00] VITALS: BP 115/72
[2018-03-20 06:27] LABS: HEMATOCRIT 30.6 % (42.0-52.0); HEMOGLOBIN 9.8 g/dl (13.5-17.5); MEAN CORPUSCULAR HEMOGLOBIN 30.9 pg (27.0-33.0); MEAN CORPUSCULAR VOLUME 96.5 fl (80.0-96.0); PLATELET COUNT, AUTOMATED 109 10^3/uL (150-450); RED BLOOD COUNT 3.17 10^6/uL (4.30-6.10); WHITE BLOOD COUNT 4.5 10^3/uL (4.0-10.0)
[2018-03-20] MEDS: SLF 3 ML SYR IV SCH ×3 (06:49→22:00)
[2018-03-20 06:51] LABS: ALBUMIN 1.9 GM/DL (3.2-5.2); BILIRUBIN,TOTAL 0.7 MG/DL (0.2-1.0); CALCIUM LEVEL 8.5 MG/DL (8.8-10.2); CREATININE FOR GFR 2.74 MG/DL (0.70-1.30); GLOMERULAR FILTRATION RATE 25.3 (>49); POTASSIUM SERUM 3.7 MEQ/L (3.5-5.1); TOTAL PROTEIN 7.6 GM/DL (6.4-8.2)
[2018-03-20] MEDS: EUCERIN 120GM CREAM TOP SCH ×2 (09:00→21:35)
[2018-03-20] MEDS: PREGABALIN 100 MG CAP (LYRICA) PO SCH ×2 (09:52→21:35)
[2018-03-20] MEDS: MULTIVITAMINS/MINERALS THERAP 1 TAB PO SCH (10:50)
[2018-03-20] MEDS: FLUoxetine 20 MG CAP PO SCH (10:51)
[2018-03-20] MEDS: FOLIC ACID 1 MG TAB PO SCH (10:51)
[2018-03-20] MEDS: NYSTATIN 100,000 UNITS/GM TOPICAL PWD 15 GM TOP SCH ×2 (10:51→21:35)
[2018-03-20] MEDS: PANTOPRAZOLE 40MG TAB (PROTONIX) PO SCH (10:51)
[2018-03-20] MEDS: AMIODARONE 200 MG TAB (PACERONE) PO SCH ×2 (10:51→21:35)
--- NOTE | 2018-03-20 13:47 | IPNPDOC ---
Date Seen The patient was seen on 03/20/18. Progress Note SUBJECTIVE: Patient is a 62-year-old male with fall for which he was evaluated by orthopedic surgery and determined that no intervention was required. Chronic left lower extremity wound and chronic indwelling Anderson catheter with both revealing microbial activity. Patient started on a ntibiotics. 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 He underwent for cardiopulmonary resuscitative events with successful return of spontaneous circulation obtained after each event. Patient was intubated, mechanically ventilated, and placed on three pressors. Elevated troponin without ST elevation possibly secondary to demand ischemia. Poor renal perfusion with anuria requiring hemodialysis. Successfully extubated on 02/24/2018 and transferred to hospitalist service. Patient is evaluated at bedside this morning. He has been transferred to [address] [place] [address]. He states that he is tired today. He denies specific chest pain, shortness of breath, nausea, vomiting, abdominal pain, fever, night sweats, chills. His right shoulder pain is improved with the addition of the heating pad. States that he has yet to urinate. OBJECTIVE PHYSICAL EXAMINATION: VITAL SIGNS: Please see below. GENERAL: Morbidly obese male, alert and conversant, appropriately dressed in hospital attire, in no acute distress. HEENT: Atraumatic, normocephalic, PERRL, EOMI, oral mucosa appears pink and moist, nasal septum appears midline, nares are patent, dentition is poor. CARDIOVASCULAR: Regular heart rate and rhythm, normal S1 and S2, no audible murmur, rub, click, Perm-A-Cath noted on right sided anterior chest. RESPIRATORY: Limited exam secondary to body habitus, bronchial breath sounds appreciated anteriorly, rhonchorous throughout, symmetric airway entry, no audible focal consolidations, no wheeze, crackles. ABDOMINAL: Morbid, soft, nondistended, nontender to palpation, bowel sounds appreciated throughout, no apparent guarding or rebound, difficult to assess organomegaly due to body habitus. EXTREMITIES: Left lower extremity is wrapped in OptiLock and Coban, chronic v enous stasis noted on bilateral lower extremities, +1 pitting peripheral edema on bilateral lower extremities, no clubbing, no cyanosis, no visible skin rashes or lesions. NEUROLOGICAL: No focal neurological deficits. PSYCHOLOGICAL: Mood and affect appear appropriate. LABORATORY DATA, IMAGING STUDIES, MICROBIOLOGY: Please see below. Right complete shoulder x-ray on 02/28/2018 - no acute fracture or dislocation. Abdominal flat plate x-ray on 03/02/2018 - air-filled normal caliber colon, no evidence of obstruction, degenerative changes and left hip and lumbar spine. Left lower extremity arterial ultrasound on 03/03/2018 - unable to obtain ANTHONY or Doppler measurements due to ulcer; normal triphasic waveforms and normal velocities from other lower extremity arteries; no evidence of arterial stenosis. Limited abdominal ultrasound on 03/10/2018 - mild splenomegaly with a splenic index of 850 and the normal range less than 480, no discrete splenic mass, subcapsular hematoma or adjacent ascites, multiple renal cysts as described, similar to that seen on CT 2 years ago, no hydronephrosis. CT chest without contrast on 03/14/2018 - Right-sided tunnel catheter. Multiple recent anterior and possibly posterior rib fractures noted bilaterally. Gallstones. Elevated right hemidiaphragm. No evidence of adenopathy. CT abdomen and pelvis without contrast on 03/14/2018 - No evidence of l ymphadenopathy. Mild splenomegaly. Multiple bilateral renal cysts. Anderson catheter. Echocardiogram: Left ventricular diastolic dysfunction, dilated right heart chambers with hypokinesis of right ventricular free wall, moderate pulmonary hypertension. DVT prophylaxis ordered?: TEDs, sequentials, knee high compression. ASSESSMENT AND PLAN: This is a 62-year-old male with multiple co- morbidities and a complicated hospital course that required intubation, mechanical ventilation, and pressor support. Multifactorial etiology. PROBLEMS: 1. Critical illness myopathy: Continues to make improvements with physical and occupational therapy. Both services have recommended that patient continue rehabilitation services once medically cleared for discharge. Bilateral MPO boots. Patient and family services have [facility] hemodialysis chair secured on Monday/Monday/Monday in the afternoon; however, there are no [facility] beds available. Continue to work with occupational and physical therapy. 2. Acute renal failure superimposed on chronic kidney disease: Nephrology is consulted. Patient continues with hemodialysis. He has converted to nonoliguric renal failure. Hemodialysis removed 1 L on 03/19/2018. Patient is on Aranesp. Perm-A-Cath has been placed. Heparin ordered to flush catheter only. Prior GFR was 49.1. Renal recovery may bes possible. Will continue to monitor closely. Renal diet. Nepro supplementation ordered. Electrolyte management by he modialysis and nephrology recommendations. Patient may be discharged to rehabilitative unit when medically cleared and may continue hemodialysis for acute renal failure as an outpatient. 3. Pancytopenia: Hematology/oncology consulted. Patient has been thrombocytopenic and anemic in the past, possibly due to ITP or recent recovery from DIC. Recommend work-up for celiac disease once stabilized. Leukopenia is new and has resolved. Recommendations include obtaining peripheral blood for flow cytometry which revealed "reactive lymphocyte subsets with no evidence of acute leukemia or non-Hodgkin lymphoma", FISH for cytogenetics to rule out MDS, hemolysis labs (haptoglobin which is normal and ZACK), DIC work-up (D-dimer which is elevated, fibrinogen which is within normal limits, and coagulation studies which reveal a marginally elevated PT), CPK (normal), anti-platelet antibodies which are negative, and imaging studies to identify lymphadenopathy (which are negative). Heparin and Aspirin have been discontinued. Status-post 2 units of PRBC with an appropriate response in hemoglobin. HIT antibody positive, although DOLLY was negative. Prior peripheral smear obtained which revealed "A nemia with minimal macrocytosis and few circulating nucleated red blood cells, likely multifactorial. No abnormal immature leukocytes identified. Mild thrombocytopenia with essentially normal platelet morphology." Hypoproliferation as indicated by reticulocyte index. No signs of active bleeding. TEDs and sequentials with knee high compression. Repeat peripheral smear revealed "Continued macrocytic anemia with pancytopenia. No blast forms identified." Thrombocytopenia is improving. Pathology suggests evaluating if pancytopenia persists for the following "vitamin deficiency, viral infection, and environmental/toxin exposure; bone marrow biopsy may be helpful to identify the cause." 4. Macrocytic anemia: Repeat peripheral smear as noted in #3. Iron studies appears to reveal anemia of chronic disease. Vitamin B12 level within normal limits (961); folate level is within normal limits. 5. Acute hypercarbic hypoxic respiratory failure: Required intubation and mechanical ventilation. Successfully extubated. Patient is currently saturating 94% on room air. This is appropriate. Continue Acapella. Added incentive spirometry. 6. New onset atrial fibrillation with rapid ventricular response: Patient converted to normal sinus rhythm. Cardiology consulted. Continue Amiodarone 2 00mg by mouth thrice daily. Continue Carvedilol to 3.125mg by mouth every 6 hours with hold parameters and Lipitor 40mg by mouth nightly. Patient may benefit from cardiac evaluation with angiography; however, patient remains on hemodialysis and has a thrombocytopenia so further invasive cardiac evaluation is on hold for the time being. 7. Elevated troponin with lactic acidosis: Likely secondary to demand ischemia from hypoperfusion that required extensive pressor support. Echocardiogram obta ined as resulted above. Cardiology consulted with recommendations for possible further cardiac intervention once patient is stabilized from a medical standpoint, if possible. Discontinued Aspirin. No nephrotoxic agents given acute tubular necrosis and currently requiring hemodialysis. Continue A torvastatin. Continue with beta-geri. 8. Shock liver: Resolved. Continue statin therapy. 9. Possible acute occult fracture of left knee: Orthopedics initially consulted. Recommended vascular surgery consultation. No surgical intervention secondary to patient's significant comorbidities. Patient may be weightbearing as tolerated, per updated orthopedic recommendations. Left lower extremity arterial Doppler ultrasound obtained. Limited secondary to ulcer on posterior aspect of left lower leg; however, no arterial stenosis noted in other arteries of the left lower extremity. Patient may use orthopedic brace. Discussed left lower extremity amputation (as has been discussed with patient previously). Continue with physical and occupational therapy. 10. 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 Wound bases are clean and non-malodorous. Completed a ten-day course of antibiotic therapy. Blood cultures negative. Dressing changes with OptiLock, Kerlix, and Coban. 11. CAUTI: Likely result of chronic indwelling Anderson catheter. Anderson catheter has been removed. No urinary complaints. Bladder and post-void residual scans ordered. Completed 10-day antibiotic course. 12. Alcohol dependence: Patient has significant alcohol history. No withdrawal symptoms during hospital course. Have started Folic acid and Multivitamin. No need for Benzodiazepine at this time. 13. Depression: Continue with Fluoxetine. 14. Dermatitis: Resolved. Continue with Clobetasol twice daily as needed for 4 weeks. 15. Cough with sputum production: Afebrile. Chest x-ray obtained was without acute infiltrate. Continue with Robitussin and suctioning. 16. Right shoulder pain: Apply K-pad to right shoulder. Could consider topical Lidocaine or other topical anesthetic agent for symptomatic relief. DISPOSITION: Continue physical and occupational therapy. Continue hemodialysis. Prolonged hospital course. Potential transfer to rehabilitative unit once patient is able to transfer independently into wheelchair. VS, I&O, 24H, Fishbone Vital Signs/I&O Vital Signs Date Time Temp Pulse Resp B/P (MAP) Pulse Ox O2 Delivery O2 Flow Rate FiO2 03/20/18 11:00 80 128/77 03/20/18 06:00 96.5 18 94 03/19/18 22:46 Room Air 03/16/18 06:02 2.0 I&O- Last 24 Hours up to 6 AM 03/20/18 05:59 Intake Total 360 ml Output Total 1825 ml Balance -1465 ml Laboratory Data 24H LABS Laboratory Tests 2 03/20/18 05:46: Nucleated Red Blood Cells % (auto) 0.0, Anion Gap 6L, Glomerular Filtration Rate 25.3L, Blood Urea Nitrogen 17, Creatinine 2.74H, Sodium Level 136, Potassium Level 3.7, Chloride Level 100, Carbon Dioxide Level 30, Calcium Level 8.5L, Aspartate Amino Transf (AST/SGOT) 23, Alanine Aminotransferase (ALT/SGPT) 18, Alkaline Phosphatase 171H, Total Bilirubin 0.7, Total Protein 7.6, Albumin 1.9L, Albumin/Globulin Ratio 0.33L CBC/BMP Laboratory Tests 03/20/18 05:46 Red Blood Count 3.17 L, Mean Corpuscular Volume 96.5 H, Mean Corpuscular Hemoglobin 30.9, Mean Corpuscular Hemoglobin Concent 32.0, Red Cell Distribution Width 15.7 H, Calcium Level 8.5 L, Aspartate Amino Transf (AST/SGOT) 23, Alanine Aminotransferase (ALT/SGPT) 18, Alkaline Phosphatase 171 H, Total Bilirubin 0.7, Total Protein 7.6, Albumin 1.9 L Microbiology Microbiology 03/10/18 Clostridium difficile (PCR) - Final, Complete GME ATTESTATION GME ATTESTATION My faculty preceptor for this patient encounter was physically present during the encounter and was fully available. All aspects of the patient interview, ex amination, medical decision making process, and medical care plan development were reviewed and approved by the faculty preceptor. The faculty preceptor is aware and concurs with the plan as stated in the body of this note and will attest to such by his/her cosignature. ATTENDING NOTE I, Isacc Gross, have both independently examined this patient as well as reviewed the documentation. I have discussed in detail with the resident the findings and plan of treatment as documented in the residents documentation. I will continue to follow the patient and offer further guidance to the patients care as necessary during this hospital stay. CARMINE COCHRAN DO Mar 20, 2018 13:47 ISACC GROSS MD Apr 05, 2018 17:32
[2018-03-20 14:00] VITALS: BP 129/69
[2018-03-20] MEDS: PERCOCET 5MG/325MG TAB PO PRN ×2 (14:09→21:36)
[2018-03-20 20:00] VITALS: BP 130/71
[2018-03-20] MEDS: ATORVASTATIN 20 MG TAB PO SCH (21:35)
[2018-03-20] MEDS: traZODone 100 MG TAB PO SCH (21:35)
[2018-03-21] VITALS: BP 128/68
[2018-03-21] MEDS: CARVedilol 3.125 MG TAB PO SCH ×4 (00:11→18:00)
[2018-03-21] MEDS: SLF 3 ML SYR IV SCH ×3 (00:11→21:11)
[2018-03-21 06:00] VITALS: BP 145/71
[2018-03-21] MEDS: PREGABALIN 100 MG CAP (LYRICA) PO SCH ×2 (06:14→21:10)
[2018-03-21] MEDS: FOLIC ACID 1 MG TAB PO SCH (06:14)
[2018-03-21] MEDS: FLUoxetine 20 MG CAP PO SCH (06:14)
[2018-03-21] MEDS: MULTIVITAMINS/MINERALS THERAP 1 TAB PO SCH (06:15)
[2018-03-21] MEDS: AMIODARONE 200 MG TAB (PACERONE) PO SCH ×2 (06:15→21:09)
[2018-03-21] MEDS: PANTOPRAZOLE 40MG TAB (PROTONIX) PO SCH (06:15)
--- NOTE | 2018-03-21 06:23 | IPN ---
DATE OF VISIT: 03/20/2018 Mr. Eng is seen this morning on his bedside. He is not feeling well and reports that he had nausea and abdominal discomfort all night and could not sleep. He denies any dyspnea or chest pain. He remains very weak and mostly bedridden. On physical examination, temperature 97 degrees Fahrenheit, heart rate 84 per minute and respiratory rate 18 per minute. Blood pressure 128/77 mmHg and oxygen saturation 94% on room air. Intake and output records from yesterday showed total intake only 660 and output 2225, out of which 1000 was removed by dialysis and urine output was 1225. His head is atraumatic. Neck is supple and there is no jugular venous distention (JVD) or thyroid enlargement. Heart sounds are regular and lungs with diminished breath sounds and no rales or wheezing. Abdomen is obese, soft and nontender, and bowel sounds are present. Extremities: Have no cyanosis or clubbing. Today's labs show sodium level 136, potassium 3.7, CO2 of 30, BUN 17 and creatinine 2.74. Glucose 87 and calcium 8.5. PROBLEMS: 1. Acute renal failure superimposed on chronic kidney disease. The patient was nonoliguric and his urine output is gradually improving. He was dialyzed yesterday and we will watch him for the next couple of days without dialysis and see how he does. 2. Recurrent urinary retention. The patient does get recurrent retention and has required straight cath. Nursing staff will continue to scan his bladder and catheterize him as needed. 3. Anemia. So far his anemia is stable and no urgent intervention is indicated. 4. Generalized weakness and deconditioning. The patient is very weak and not able to even sit up by himself. Nursing staff understands to get him out of bed in stretcher chair at least three times a day.
[2018-03-21 06:56] LABS: HEMATOCRIT 32.2 % (42.0-52.0); HEMOGLOBIN 9.9 g/dl (13.5-17.5); MEAN CORPUSCULAR HEMOGLOBIN 30.6 pg (27.0-33.0); MEAN CORPUSCULAR HGB CONC 30.7 g/dl (32.0-36.5); MEAN CORPUSCULAR VOLUME 99.4 fl (80.0-96.0); PLATELET COUNT, AUTOMATED 121 10^3/uL (150-450); RED BLOOD COUNT 3.24 10^6/uL (4.30-6.10); WHITE BLOOD COUNT 4.9 10^3/uL (4.0-10.0)
[2018-03-21 07:27] LABS: ALBUMIN 1.8 GM/DL (3.2-5.2); BILIRUBIN,TOTAL 0.6 MG/DL (0.2-1.0); CREATININE FOR GFR 3.38 MG/DL (0.70-1.30); GLOMERULAR FILTRATION RATE 19.8 (>49); POTASSIUM SERUM 3.9 MEQ/L (3.5-5.1); TOTAL PROTEIN 7.5 GM/DL (6.4-8.2)
[2018-03-21] MEDS: NYSTATIN 100,000 UNITS/GM TOPICAL PWD 15 GM TOP SCH ×2 (09:00→21:11)
[2018-03-21] MEDS: EUCERIN 120GM CREAM TOP SCH ×2 (09:00→21:10)
--- NOTE | 2018-03-21 14:27 | IPNPDOC ---
Date Seen The patient was seen on 03/21/18. Progress Note SUBJECTIVE: Patient is a 62-year-old male with fall for which he was evaluated by orthopedic surgery and determined that no intervention was required. Chronic left lower extremity wound and chronic indwelling Anderson catheter with both revealing microbial activity. Patient started on a ntibiotics. 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 He underwent for cardiopulmonary resuscitative events with successful return of spontaneous circulation obtained after each event. Patient was intubated, mechanically ventilated, and placed on three pressors. Elevated troponin without ST elevation possibly secondary to demand ischemia. Poor renal perfusion with anuria requiring hemodialysis. Successfully extubated on 02/24/2018 and transferred to hospitalist service. Patient is evaluated at bedside this morning. He states that his throat hurts. He denies odynophagia. Further denies difficulty eating, does not have nausea or is vomiting. No abdominal pain. OBJECTIVE PHYSICAL EXAMINATION: VITAL SIGNS: Please see below. GENERAL: Morbidly obese male, alert and conversant, appropriately dressed in hospital attire, in no acute distress. HEENT: Atraumatic, normocephalic, PERRL, EOMI, oral mucosa appears pink and moist, nasal septum appears midline, nares are patent, dentition is poor, tongue and uvula are midline, no obvious posterior pharyngeal obstruction noted. CARDIOVASCULAR: Regular heart rate and rhythm, normal S1 and S2, no audible murm ur, rub, click, Perm-A-Cath noted on right sided anterior chest. RESPIRATORY: Limited exam secondary to body habitus, bronchial breath sounds appreciated anteriorly, rhonchorous throughout, symmetric airway entry, no audible focal consolidations, no wheeze, crackles. ABDOMINAL: Morbid, soft, nondistended, nontender to palpation, bowel sounds appreciated throughout, no apparent guarding or rebound, difficult to assess organomegaly due to body habitus. EXTREMITIES: Left lower extremity is wrapped in OptiLock and Coban, chronic venous stasis noted on bilateral lower extremities, +1 pitting peripheral edema on bilateral lower extremities, no clubbing, no cyanosis, no visible skin rashes or lesions. NEUROLOGICAL: No focal neurological deficits. PSYCHOLOGICAL: Mood and affect appear appropriate. LABORATORY DATA, IMAGING STUDIES, MICROBIOLOGY: Please see below. Right complete shoulder x-ray on 02/28/2018 - no acute fracture or dislocation. Abdominal flat plate x-ray on 03/02/2018 - air-filled normal caliber colon, no evidence of obstruction, degenerative changes and left hip and lumbar spine. Left lower extremity arterial ultrasound on 03/03/2018 - unable to obtain ANTHONY or Doppler measurements due to ulcer; normal triphasic waveforms and normal velocities from other lower extremity arteries; no evidence of arterial stenosis. Limited abdominal ultrasound on 03/10/2018 - mild splenomegaly with a splenic index of 850 and the normal range less than 480, no discrete splenic mass, sub capsular hematoma or adjacent ascites, multiple renal cysts as described, similar to that seen on CT 2 years ago, no hydronephrosis. CT chest without contrast on 03/14/2018 - Right-sided tunnel catheter. Multiple recent anterior and possibly posterior rib fractures noted bilaterally. Gallstones. Elevated right hemidiaphragm. No evidence of adenopathy. CT abdomen and pelvis without contrast on 03/14/2018 - No evidence of lymphadenopathy. Mild splenomegaly. Multiple bilateral renal cysts. Anderson catheter. Echocardiogram: Left ventricular diastolic dysfunction, dilated right heart donna bers with hypokinesis of right ventricular free wall, moderate pulmonary hypertension. DVT prophylaxis ordered?: TEDs, sequentials, knee high compression. ASSESSMENT AND PLAN: This is a 62-year-old male with multiple co- morbidities and a complicated hospital course that required intubation, mechanical ventilation, and pressor support. Multifactorial etiology. PROBLEMS: 1. Critical illness myopathy: Continues to make improvements with physical and occupational therapy. Occupational therapy recommend out-of-bed to chair with debora for at least one meal a day. Both services have recommended that patient continue rehabilitation services once medically cleared for discharge. Fernando QUINONES boots. Patient and family services have [facility] hemodialysis chair secured on Monday/Monday/Monday in the afternoon; however, there are no [facility] beds available. Continue to work with occupational and physical therapy. 2. Acute renal failure superimposed on chronic kidney disease: Nephrology is consulted. Patient is making urine spontaneously. Patient continues with hemodialysis. He has converted to nonoliguric renal failure. Hemodialysis removed 1 L on 03/19/2018. Patient is on Aranesp. Perm-A-Cath has been placed. Heparin ordered to flush catheter only. Prior GFR was 49.1. Renal recovery may bes possible. Will continue to monitor closely. Renal diet. Nepro supplementation ordered. Electrolyte management by hemodialysis and nephrology recommendations. Patient may be discharged to rehabilitative unit when medically cleared and may continue hemodialysis for acute renal failure as an outpatient. 3. Pancytopenia: Hematology/oncology consulted. Extensive work-up has been obtained. No signs of bleeding. Leukopenia has resolved. TEDs, sequentials, and knee high compression. Significantly improved thrombocytopenia; although remains mildly thrombocytopenic. Status-post 2 units PRBC. Patient has been thrombocytopenic and anemic in the past, possibly due to ITP or recent recovery from DIC. Recommend work-up for celiac disease once stabilized. 4. Macrocytic anemia: Prior peripheral smears obtained. Iron studies appears to reveal anemia of chronic disease. Vitamin B12 level within normal limits (961); folate level is within normal limits. 5. Acute hypercarbic hypoxic respiratory failure: Required intubation and mechanical ventilation. Successfully extubated. Patient is currently saturating 92% on room air. This is appropriate. Continue Acapella. Added incentive spirometry. 6. New onset atrial fibrillation with rapid ventricular response: Patient converted to normal sinus rhythm. Cardiology consulted. Continue Amiodarone 200mg by mouth thrice daily. Continue Carvedilol to 3.125mg by mouth every 6 hours with hold parameters and Lipitor 40mg by mouth nightly. Patient may benefit from cardiac evaluation with angiography; however, patient remains on hemodialysis and has a thrombocytopenia so further invasive cardiac evaluation is on hold for the time being. 7. Elevated troponin with lactic acidosis: Likely secondary to demand ischemia from hypoperfusion that required extensive pressor support. Echocardiogram obtained as resulted above. Cardiology consulted with recommendations for possible further cardiac intervention once patient is stabilized from a medical standpoint, if possible. Discontinued Aspirin. No nephrotoxic agents given acute tubular necrosis and currently requiring hemodialysis. Continue Atorvastatin. Continue with beta-geri. 8. Shock liver: Resolved. Continue statin therapy. 9. Possible acute occult fracture of left knee: Orthopedics initially consulted. Recommended vascular surgery consultation. No surgical intervention secondary to patient's significant comorbidities. Patient may be weightbearing as tolerated, per updated orthopedic recommendations. Left lower extremity arterial Doppler ultrasound obtained. Limited secondary to ulcer on posterior aspect of left lower leg; however, no arterial stenosis noted in other arteries of the left lower extremity. Patient may use orthopedic brace. Discussed left lower extremity amputation (as has been discussed with patient previously). Continue with physical and occupational therapy. 10. 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 Wound bases are clean and non-malodorous. Completed a ten-day course of antibiotic therapy. Blood cultures negative. Dressing changes with OptiLock, Kerlix, and Coban. 11. CAUTI: Likely result of chronic indwelling Anderson catheter. Anderson catheter has been removed. No urinary complaints. Bladder and post-void residual scans ordered. Completed 10-day antibiotic course. 12. Alcohol dependence: Patient has significant alcohol history. No withdrawal symptoms during hospital course. Have started Folic acid and Multivitamin. No need for Benzodiazepine at this time. 13. Depression: Continue with Fluoxetine. 14. Dermatitis: Resolved. Continue with Clobetasol twice daily as needed for 4 weeks. 15. Cough with sputum production: Afebrile. Chest x-ray obtained was without acute infiltrate. Continue with Robitussin and suctioning. 16. Right shoulder pain: Apply K-pad to right shoulder. Could consider topical Lidocaine or other topical anesthetic agent for symptomatic relief. DISPOSITION: Continue physical and occupational therapy. Continue hemodialysis. Prolonged hospital course. Potential transfer to rehabilitative unit once p atient is able to transfer independently into wheelchair. VS, I&O, 24H, [facility] Vital Signs/I&O Vital Signs Date Time Temp Pulse Resp B/P (MAP) Pulse Ox O2 Delivery O2 Flow Rate FiO2 03/21/18 12:11 79 132/78 03/21/18 06:00 97.6 16 92 Room Air 03/16/18 06:02 2.0 I&O- Last 24 Hours up to 6 AM 03/21/18 06:00 Intake Total 1080 ml Output Total 200 ml Balance 880 ml Laboratory Data 24H LABS Laboratory Tests 2 03/21/18 06:25: Nucleated Red Blood Cells % (auto) 0.0, Anion Gap 7L, Glomerular Filtration Rate 19.8L, Blood Urea Nitrogen 26#H, Creatinine 3.38H, Sodium Level 135L, Potassium Level 3.9, Chloride Level 99, Carbon Dioxide Level 29, Calcium Level 8.0L, Aspartate Amino Transf (AST/SGOT) 22, Alanine Aminotransferase (ALT/SGPT) 15, Alkaline Phosphatase 176H, Total Bilirubin 0.6, Total Protein 7.5, Albumin 1.8L, Albumin/Globulin Ratio 0.32L CBC/BMP Laboratory Tests 03/21/18 06:25 Red Blood Count 3.24 L, Mean Corpuscular Volume 99.4 H, Mean Corpuscular Hemoglobin 30.6, Mean Corpuscular Hemoglobin Concent 30.7 L, Red Cell Distribution Width 15.8 H, Calcium Level 8.0 L, Aspartate Amino Transf (AST/SGOT) 22, Alanine Aminotransferase (ALT/SGPT) 15, Alkaline Phosphatase 176 H, Total Bilirubin 0.6, Total Protein 7.5, Albumin 1.8 L Microbiology Microbiology 03/20/18 Respiratory Virus Panel (PCR) ([facility]) - Final, Complete GME ATTESTATION GME ATTESTATION My faculty preceptor for this patient encounter was physically present during the encounter and was fully available. All aspects of the patient interview, examination, medical decision making process, and medical care plan development were reviewed and approved by the faculty preceptor. The faculty preceptor is aware and concurs with the plan as stated in the body of this note and will attest to such by his/her cosignature. ATTENDING NOTE I, Isacc Trevino, have both independently examined this patient as well as reviewed the documentation. I have discussed in detail with the resident the findings and plan of treatment as documented in the residents documentation. I will continue to follow the patient and offer further guidance to the patients care as necessary during this hospital stay. CARMINE COCHRAN DO Mar 21, 2018 14:27 ISACC TREVINO MD Apr 05, 2018 17:35
--- NOTE | 2018-03-21 20:00 | IPN ---
DATE: 03/21/2018 Mr. Eng is seen this morning on his bedside. Nursing staff just finished wrapping his left leg. He has chronic nonhealing ulcers and swelling. He denies any dyspnea or chest pain. He is still very weak and not able to get up. Nursing staff report that he has been refusing to get out of bed in the stretcher chair. He has partial recovery of kidney function after a completely anuric renal failure and has been dialysis dependent.. He is going to be dialyzed again today. PHYSICAL EXAMINATION Temperature 97.6 degrees Fahrenheit, heart rate 80 per minute and respiratory rate 16 per minute. Blood pressure 145/70 mmHg and oxygen saturation 92% on room air. Intake and output records yesterday show urine output only 200 and intake 840 mL. He has not had a straight cath done in last couple of days. His weight is 157.2 kg today. His head is atraumatic. Neck is supple and JVD does not seem to be elevated. There is no oral thrush or ulcers. Heart: Sounds are regular and lungs with diminished breath sounds at dependent parts. Abdomen: Obese, soft and nontender. Bowel sounds are present. Extremities: Have no cyanosis or clubbing. Neurologically he is without any pattern changer last few days. Today's labs show WBC count 4.9, hemoglobin 9.9 and hematocrit 32.2. Platelets 121. Sodium 135, potassium 3.9, CO2 29, BUN 26 and creatinine 3.38. Calcium 8.0. PROBLEMS: 1. Acute renal failure superimposed on chronic kidney disease. The patient is known to have baseline stage IV of chronic kidney disease. He is still oliguric though does have some urine output. He is dialysis dependent and will be dialyzed again today. 2. Anemia. Anemia is stable at this point and we will continue with Aranesp once a week. 3. Generalized weakness and deconditioning. The patient has been very weak and unable to even sit up or move. He has been refusing to get out of bed in stretcher chair. He is being encouraged again to cooperate with nursing staff to get out of bed in stretcher chair and start moving.
[2018-03-21] MEDS: traZODone 100 MG TAB PO SCH (21:09)
[2018-03-21] MEDS: PERCOCET 5MG/325MG TAB PO PRN (21:10)
[2018-03-21] MEDS: ATORVASTATIN 20 MG TAB PO SCH (21:10)
[2018-03-21 22:00] VITALS: BP 119/77
[2018-03-22] MEDS: CARVedilol 3.125 MG TAB PO SCH ×4 (00:23→17:49)
[2018-03-22 02:00] VITALS: BP 122/76
[2018-03-22 06:00] VITALS: BP 132/76
[2018-03-22] MEDS: SLF 3 ML SYR IV SCH ×3 (06:00→22:00)
[2018-03-22 06:58] LABS: HEMATOCRIT 32.8 % (42.0-52.0); HEMOGLOBIN 10.2 g/dl (13.5-17.5); MEAN CORPUSCULAR HGB CONC 31.1 g/dl (32.0-36.5); MEAN CORPUSCULAR VOLUME 99.7 fl (80.0-96.0); PLATELET COUNT, AUTOMATED 131 10^3/uL (150-450); RED BLOOD COUNT 3.29 10^6/uL (4.30-6.10); WHITE BLOOD COUNT 5.2 10^3/uL (4.0-10.0)
[2018-03-22 07:23] LABS: BILIRUBIN,TOTAL 0.7 MG/DL (0.2-1.0); CALCIUM LEVEL 8.5 MG/DL (8.8-10.2); CREATININE FOR GFR 2.23 MG/DL (0.70-1.30); GLOMERULAR FILTRATION RATE 32.1 (>49); POTASSIUM SERUM 4.7 MEQ/L (3.5-5.1); TOTAL PROTEIN 7.9 GM/DL (6.4-8.2)
[2018-03-22] MEDS: PANTOPRAZOLE 40MG TAB (PROTONIX) PO SCH (10:18)
[2018-03-22] MEDS: FLUoxetine 20 MG CAP PO SCH (10:18)
[2018-03-22] MEDS: MULTIVITAMINS/MINERALS THERAP 1 TAB PO SCH (10:18)
[2018-03-22] MEDS: FOLIC ACID 1 MG TAB PO SCH (10:19)
[2018-03-22] MEDS: PREGABALIN 100 MG CAP (LYRICA) PO SCH ×2 (10:19→22:29)
[2018-03-22] MEDS: AMIODARONE 200 MG TAB (PACERONE) PO SCH ×2 (10:19→22:29)
[2018-03-22] MEDS: EUCERIN 120GM CREAM TOP SCH ×2 (10:20→22:28)
[2018-03-22] MEDS: NYSTATIN 100,000 UNITS/GM TOPICAL PWD 15 GM TOP SCH ×2 (10:20→22:29)
--- NOTE | 2018-03-22 11:48 | IPNPDOC ---
Date Seen The patient was seen on 03/22/18. Progress Note SUBJECTIVE: Patient is a 62-year-old male with fall for which he was evaluated by orthopedic surgery and determined that no intervention was required. Chronic left lower extremity wound and chronic indwelling Anderson catheter with both revealing microbial activity. Patient started on a ntibiotics. Patient was found unresponsive optician of 02/19/2018. He underwent for cardiopulmonary resuscitative events with successful return of spontaneous circulation obtained after each event. Patient was intubated, mechanically ventilated, and placed on three pressors. Elevated troponin without ST elevation possibly secondary to demand ischemia. Poor renal perfusion with anuria requiring hemodialysis. Successfully extubated on 02/24/2018 and transferred to hospitalist service. Patient is evaluated at bedside this morning. Patient states that he has some left upper quadrant abdominal pain that is dull in character without radiation. No association with food or liquid. Denies nausea or vomiting. No substernal chest pain or bad taste in his mouth. No fever, night sweats, or chills. OBJECTIVE PHYSICAL EXAMINATION: VITAL SIGNS: Please see below. GENERAL: Morbidly obese male, alert and conversant, appropriately dressed in hospital attire, in no acute distress. HEENT: Atraumatic, normocephalic, PERRL, EOMI, oral mucosa appears pink and moist, nasal septum appears midline, nares are patent, dentition is poor, tongue and uvula are midline. CARDIOVASCULAR: Regular heart rate and rhythm, normal S1 and S2, no audible murmur, rub, click, Perm-A-Cath noted on right sided anterior chest. RESPIRATORY: Limited exam secondary to body habitus, bronchial breath sounds appreciated anteriorly, rhonchorous throughout, symmetric airway entry, no audible focal consolidations, no wheeze, crackles. ABDOMINAL: Morbid, soft, nondistended, tender to palpation in the left upper quadrant, no guarding, no rebound, bowel sounds appreciated throughout, no appreciable bruits, difficult to assess organomegaly due to body habitus. EXTREMITIES: Left lower extremity is wrapped in OptiLock and Coban, chronic venous stasis noted on bilateral lower extremities, +1 pitting peripheral edema on bilateral lower extremities, no clubbing, no cyanosis, no visible skin rashes or lesions. NEUROLOGICAL: No focal neurological deficits. PSYCHOLOGICAL: Mood and affect appear appropriate. LABORATORY DATA, IMAGING STUDIES, MICROBIOLOGY: Please see below. Right complete shoulder x-ray on 02/28/2018 - no acute fracture or dislocation. Abdominal flat plate x-ray on 03/02/2018 - air-filled normal caliber colon, no evidence of obstruction, degenerative changes and left hip and lumbar spine. Left lower extremity arterial ultrasound on 03/03/2018 - unable to obtain ANTHONY or Doppler measurements due to ulcer; normal triphasic waveforms and normal velocities from other lower extremity arteries; no evidence of arterial stenosis. Limited abdominal ultrasound on 03/10/2018 - mild splenomegaly with a splenic index of 850 and the normal range less than 480, no discrete splenic mass, subcapsular hematoma or adjacent ascites, multiple renal cysts as described, similar to that seen on CT 2 years ago, no hydronephrosis. CT chest without contrast on 03/14/2018 - Right-sided tunnel catheter. Multiple recent anterior and possibly posterior rib fractures noted bilaterally. Galls tones. Elevated right hemidiaphragm. No evidence of adenopathy. CT abdomen and pelvis without contrast on 03/14/2018 - No evidence of lymphadenopathy. Mild splenomegaly. Multiple bilateral renal cysts. Anderson catheter. Echocardiogram: Left ventricular diastolic dysfunction, dilated right heart chambers with hypokinesis of right ventricular free wall, moderate pulmonary hypertension. DVT prophylaxis ordered?: TEDs, sequentials, knee high compression. ASSESSMENT AND PLAN: This is a 62-year-old male with multiple co- morbidities and a complicated hospital course that required intubation, mechanical ventilation, and pressor support. Multifactorial etiology. PROBLEMS: 1. Critical illness myopathy: Continues to make improvements with physical and occupational therapy. Occupational therapy recommend out-of-bed to chair with debora for at least one meal a day. Both services have recommended that patient continue rehabilitation services once medically cleared for discharge. Bilateral MPO boots. Patient and family services have [facility] hemodialysis chair secured on Monday/Monday/Monday in the afternoon; however, there are no [facility] beds available. Continue to work with occupational and physical therapy. 2. Acute renal failure superimposed on chronic kidney disease: Nephrology is consulted. Patient is making urine spontaneously. Patient continues with hemodialysis. He has converted to nonoliguric renal failure. Hemodialysis removed 1 L on 03/19/2018. Patient is on Aranesp. Perm-A-Cath has been placed. Heparin ordered to flush catheter only. Prior GFR was 49.1. Renal recovery may bes possible. Will continue to monitor closely. Renal diet. Nepro supplementation ordered. Electrolyte management by hemodialysis and nephrology recommendations. Patient may be discharged to rehabilitative unit when medically cleared and may continue hemodialysis for acute renal failure as an outpatient. 3. Pancytopenia: Hematology/oncology consulted. Extensive work-up has been obtained. No signs of bleeding. Leukopenia has resolved. TEDs, sequentials, and knee high compression. Significantly improved thrombocytopenia; although remains mildly thrombocytopenic. Status-post 2 units PRBC. Patient has been thrombocytopenic and anemic in the past, possibly due to ITP or recent recovery from DIC. Recommend work-up for celiac disease once stabilized. 4. Macrocytic anemia: Prior peripheral smears obtained. Iron studies appears to reveal anemia of chronic disease. Vitamin B12 level within normal limits (961); folate level is within normal limits. 5. Acute hypercarbic hypoxic respiratory failure: Required intubation and mechanical ventilation. Successfully extubated. Patient is currently saturating 92% on room air. This is appropriate. Continue Acapella. Added incentive spirometry. 6. New onset atrial fibrillation with rapid ventricular response: Patient converted to normal sinus rhythm. Cardiology consulted. Continue Amiodarone 200mg by mouth thrice daily. Continue Carvedilol to 3.125mg by mouth every 6 hours with hold parameters and Lipitor 40mg by mouth nightly. Patient may benefit from cardiac evaluation with angiography; however, patient remains on hemodialysis and has a thrombocytopenia so further invasive cardiac evaluation is on hold for the time being. 7. Elevated troponin with lactic acidosis: Likely secondary to demand ischemia from hypoperfusion that required extensive pressor support. Echocardiogram obtained as resulted above. Cardiology consulted with recommendations for possible further cardiac intervention once patient is stabilized from a medical standpoint, if possible. Discontinued Aspirin. No nephrotoxic agents given acute tubular necrosis and currently requiring hemodialysis. Continue Atorvastatin. Continue with beta-geri. 8. Shock liver: Resolved. Continue statin therapy. 9. Possible acute occult fracture of left knee: Orthopedics initially consulted. Recommended vascular surgery consultation. No surgical intervention secondary to patient's significant comorbidities. Patient may be weightbearing as tolerated, per updated orthopedic recommendations. Left lower extremity arterial Doppler ultrasound obtained. Limited secondary to ulcer on posterior aspect of left lower leg; however, no arterial stenosis noted in other arteries of the left lower extremity. Patient may use orthopedic brace. Discussed left lower extremity amputation (as has been discussed with patient previously). Continue with physical and occupational therapy. 10. 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 Wound bases are clean and non-malodorous. Completed a ten-day course of antibiotic therapy. Blood cultures negative. Dressing changes with OptiLock, Kerlix, and Coban. 11. CAUTI: Likely result of chronic indwelling Anderson catheter. Anderson catheter has been removed. No urinary complaints. Bladder and post-void residual scans ordered. Completed 10-day antibiotic course. 12. Alcohol dependence: Patient has significant alcohol history. No withdrawal symptoms during hospital course. Have started Folic acid and Multivitamin. No need for Benzodiazepine at this time. 13. Depression: Continue with Fluoxetine. 14. Dermatitis: Resolved. Continue with Clobetasol twice daily as needed for 4 weeks. 15. Cough with sputum production: Afebrile. Chest x-ray obtained was without acute infiltrate. Continue with Robitussin and suctioning. 16. Right shoulder pain: Apply K-pad to right shoulder. Could consider topical Lidocaine or other topical anesthetic agent for symptomatic relief. 17. Left upper quadrant abdominal pain: Prior abdominal imaging as noted above. Mild splenomegaly. Afebrile, not tachycardic, no hypotension. Continue with Protonix. DISPOSITION: Continue physical and occupational therapy. Continue hemodialysis. Prolonged hospital course. Potential transfer to rehabilitative unit once patient is able to transfer independently into wheelchair. VS, I&O, 24H, Fishbone Vital Signs/I&O Vital Signs Date Time Temp Pulse Resp B/P (MAP) Pulse Ox O2 Delivery O2 Flow Rate FiO2 03/22/18 06:25 85 132/76 03/22/18 06:00 98.9 19 90 03/21/18 06:00 Room Air 03/16/18 06:02 2.0 I&O- Last 24 Hours up to 6 AM 03/22/18 05:59 Intake Total 540 ml Output Total 1800 ml Balance -1260 ml Laboratory Data 24H LABS Laboratory Tests 2 03/22/18 06:43: Nucleated Red Blood Cells % (auto) 0.0, Anion Gap 3L, Glomerular Filtration Rate 32.1L, Blood Urea Nitrogen 19H, Creatinine 2.23H, Sodium Level 136, Potassium Level 4.7#, Chloride Level 102, Carbon Dioxide Level 31, Calcium Level 8.5L, Aspartate Amino Transf (AST/SGOT) 55H, Alanine Aminotransferase (ALT/SGPT) 19, Alkaline Phosphatase 187H, Total Bilirubin 0.7, Total Protein 7.9, Albumin 2.0L, Albumin/Globulin Ratio 0.34L CBC/BMP Laboratory Tests 03/22/18 06:43 Red Blood Count 3.29 L, Mean Corpuscular Volume 99.7 H, Mean Corpuscular Hemoglobin 31.0, Mean Corpuscular Hemoglobin Concent 31.1 L, Red Cell Distribution Width 15.8 H, Calcium Level 8.5 L, Aspartate Amino Transf (AST/SGOT) 55 H, Alanine Aminotransferase (ALT/SGPT) 19, Alkaline Phosphatase 187 H, Total Bilirubin 0.7, Total Protein 7.9, Albumin 2.0 L Microbiology Microbiology 03/20/18 Respiratory Virus Panel (PCR) ([facility]) - Final, Complete GME ATTESTATION GME ATTESTATION My faculty preceptor for this patient encounter was physically present during the encounter and was fully available. All aspects of the patient interview, examination, medical decision making process, and medical care plan development were reviewed and approved by the faculty preceptor. The faculty preceptor is aware and concurs with the plan as stated in the body of this note and will attest to such by his/her cosignature. ATTENDING NOTE I, Isacc Gross, have both independently examined this patient as well as reviewed the documentation. I have discussed in detail with the resident the findings and plan of treatment as documented in the residents documentation. I will continue to follow the patient and offer further guidance to the patients care as necessary during this hospital stay. CARMINE COCHRAN DO Mar 22, 2018 11:48 ISACC GROSS MD Apr 05, 2018 17:37
[2018-03-22 14:00] VITALS: BP 150/91
[2018-03-22] MEDS ORDERED: MAALOX 30 ML SUSP *UDC PO PRN (15:15)
[2018-03-22] MEDS: PERCOCET 5MG/325MG TAB PO PRN ×2 (15:29→22:31)
[2018-03-22] MEDS ORDERED: MOM 30ML SUSPENSION UDC PO ONE (16:00)
--- NOTE | 2018-03-22 18:28 | IPN ---
DATE: 03/22/2018 Mr. Eng is seen this morning on his bedside. He is complaining of abdominal pain and difficulty with bowel movements. He reports that he is unable to use the bed mata. He denies any nausea or vomiting. He has no dyspnea, chest pain, fever or chills. He was dialyzed yesterday, which he tolerated very well. PHYSICAL EXAMINATION: Temperature 97.6 degrees Fahrenheit, heart rate 85 per minute and respiratory rate 18 per minute. Blood pressure 132/76 mmHg and oxygen saturation 92% on room air. His head is atraumatic. Neck is supple and without jugular venous distention (JVD) or thyroid enlargement. Heart sounds are regular and lungs with diminished breath sounds. Abdomen: Obese, soft and nontender and bowel sounds are present. Extremities: Have no cyanosis or clubbing. Neurologically he is at his baseline mentation. Today's labs show WBC count 5.2, hemoglobin 10.2 and hematocrit 32.8. Platelets 131. Sodium 136, potassium 4.7, CO2 of 31, BUN 19 and creatinine 2.23. PROBLEM #1: End-stage renal disease. The patient remains dialysis dependent and was dialyzed yesterday. We will reevaluate him tomorrow for need for dialysis. His volume status is well compensated and electrolytes are stable. PROBLEM #2: Anemia. At present his anemia is stable and improving. We will continue with Aranesp once a week. PROBLEM #3: Abdominal discomfort and constipation. Nursing staff is being advised to get him up on the bedside commode, which is likely to help with his symptoms. PROBLEM #4: Weakness and deconditioning. The patient remains very weak and unable to move much. He did get up and sat at the edge of bed with a lot of assistance. He is being encouraged to get out of bed in the stretcher chair more often. ANU
[2018-03-22 22:00] VITALS: BP 141/87
[2018-03-22] MEDS: ATORVASTATIN 20 MG TAB PO SCH (22:28)
[2018-03-22] MEDS: traZODone 100 MG TAB PO SCH (22:29)
[2018-03-22] MEDS: SENOKOT S TAB PO SCH (22:29)
[2018-03-23] MEDS: CARVedilol 3.125 MG TAB PO SCH ×4 (00:24→18:33)
[2018-03-23 06:00] VITALS: BP 135/59
[2018-03-23] MEDS: SLF 3 ML SYR IV SCH ×3 (06:00→21:25)
[2018-03-23 06:02] LABS: HEMATOCRIT 31.6 % (42.0-52.0); HEMOGLOBIN 9.8 g/dl (13.5-17.5); MEAN CORPUSCULAR HEMOGLOBIN 31.1 pg (27.0-33.0); MEAN CORPUSCULAR VOLUME 100.3 fl (80.0-96.0); PLATELET COUNT, AUTOMATED 133 10^3/uL (150-450); RED BLOOD COUNT 3.15 10^6/uL (4.30-6.10); WHITE BLOOD COUNT 5.2 10^3/uL (4.0-10.0)
[2018-03-23] MEDS: PANTOPRAZOLE 40MG TAB (PROTONIX) PO SCH (06:08)
[2018-03-23] MEDS: PERCOCET 5MG/325MG TAB PO PRN (06:08)
[2018-03-23] MEDS: FLUoxetine 20 MG CAP PO SCH (06:08)
[2018-03-23] MEDS: SENOKOT S TAB PO SCH ×2 (06:08→20:00)
[2018-03-23] MEDS: NYSTATIN 100,000 UNITS/GM TOPICAL PWD 15 GM TOP SCH ×2 (06:09→20:01)
[2018-03-23] MEDS: PREGABALIN 100 MG CAP (LYRICA) PO SCH ×2 (06:09→20:00)
[2018-03-23] MEDS: FOLIC ACID 1 MG TAB PO SCH (06:09)
[2018-03-23] MEDS: MULTIVITAMINS/MINERALS THERAP 1 TAB PO SCH (06:09)
[2018-03-23] MEDS: EUCERIN 120GM CREAM TOP SCH ×2 (06:10→20:01)
[2018-03-23 06:43] LABS: BILIRUBIN,TOTAL 0.5 MG/DL (0.2-1.0); CALCIUM LEVEL 8.4 MG/DL (8.8-10.2); CREATININE FOR GFR 2.77 MG/DL (0.70-1.30); TOTAL PROTEIN 7.7 GM/DL (6.4-8.2)
[2018-03-23] MEDS: AMIODARONE 200 MG TAB (PACERONE) PO SCH ×2 (09:30→20:00)
[2018-03-23 10:05] LABS: CYTOGENETICS FISH FOR PATH SO See Pathology Report
--- NOTE | 2018-03-23 13:21 | IPN ---
DATE OF VISIT: 03/23/2018 Mr. Eng is seen this morning on his bedside. Nursing staff is giving him a bath. He has been oliguric though slightly improved kidney function. He was last dialyzed on Monday and is due for dialysis today. Overall, there is no change in his kidney function. He remains mostly bedridden. His temperature is 98.4 degrees Fahrenheit, heart rate 63 per minute and respiratory rate 18 per minute. Blood pressure 110/72 mmHg. Head is atraumatic. Neck is supple and jugular venous distention (JVD) is not elevated. Heart sounds regular and lungs with diminished breath sounds. Abdomen: Obese and nontender and bowel sounds present. Extremities: Without any cyanosis or clubbing. Left lower extremity wrapped in dressing. Today's labs show WBC count 5.2, hemoglobin 9.8 and hematocrit 31.6. Sodium 136, potassium 4.0, CO2 32, BUN 29 and creatinine 2.77. Glucose 85 and calcium 8.4. PROBLEMS: 1. Acute renal failure superimposed on chronic kidney disease. The patient has partial recovery of kidney function, but is still requiring dialysis. He will be dialyzed again this afternoon. His volume status is well-compensated and electrolytes are within normal range. 2. Anemia. At this point, his anemia has remained stable and he remains on Aranesp 100 mcg once a week. We will continue to monitor closely. 3. Generalized weakness and deconditioning. The patient remains very weak and we have started to at least get him in the stretcher chair every day. 4. Congestive heart failure. Volume status remains well-compensated and it will be managed with dialysis.
[2018-03-23] MEDS: MOM 30ML SUSPENSION UDC PO PRN (15:32)
--- NOTE | 2018-03-23 15:35 | IPNPDOC ---
Date Seen The patient was seen on 03/23/18. Progress Note SUBJECTIVE: Patient is a 62-year-old male with fall for which he was evaluated by orthopedic surgery and determined that no intervention was required. Chronic left lower extremity wound and chronic indwelling Anderson catheter with both revealing microbial activity. Patient started on an tibiotics. Patient was found unresponsive client experience specialist of 02/19/2018. He underwent for cardiopulmonary resuscitative events with successful return of spontaneous circulation obtained after each event. Patient was intubated, mechanically ventilated, and placed on three pressors. Elevated troponin without ST elevation possibly secondary to demand ischemia. Poor renal perfusion with anuria requiring hemodialysis. Successfully extubated on 02/24/2018 and transferred to hospitalist service. Patient is evaluated at bedside this morning. Reports that abdominal pain has improved. Hemodialysis scheduled for today. No other concerns today. OBJECTIVE PHYSICAL EXAMINATION: VITAL SIGNS: Please see below. GENERAL: Morbidly obese male, alert and conversant, appropriately dressed in hospital attire, in no acute distress. HEENT: Atraumatic, normocephalic, PERRL, EOMI, oral mucosa appears pink and moist, nasal septum appears midline, nares are patent, dentition is poor, tongue and uvula are midline. CARDIOVASCULAR: Regular heart rate and rhythm, normal S1 and S2, no audible murmur, rub, click, Perm-A-Cath noted on right sided anterior chest. RESPIRATORY: Limited exam secondary to body habitus, bronchial breath sounds appreciated anteriorly, rhonchorous throughout, symmetric airway entry, no audible focal consolidations, no wheeze, crackles. ABDOMINAL: Morbid, soft, nondistended, non-tender to palpation, no guarding, no rebound, bowel sounds appreciated throughout, no appreciable bruits, difficult to assess organomegaly due to body habitus. EXTREMITIES: Left lower extremity is wrapped in OptiLock and Coban, chronic venous stasis noted on bilateral lower extremities, +1 pitting peripheral edema on bilateral lower extremities, no clubbing, no cyanosis, no visible skin rashes or lesions. NEUROLOGICAL: No focal neurological deficits. PSYCHOLOGICAL: Mood and affect appear appropriate. LABORATORY DATA, IMAGING STUDIES, MICROBIOLOGY: Please see below. Right complete shoulder x-ray on 02/28/2018 - no acute fracture or dislocation. Abdominal flat plate x-ray on 03/02/2018 - air-filled normal caliber colon, no evidence of obstruction, degenerative changes and left hip and lumbar spine. Left lower extremity arterial ultrasound on 03/03/2018 - unable to obtain ANTHONY or Doppler measurements due to ulcer; normal triphasic waveforms and normal velocities from other lower extremity arteries; no evidence of arterial stenosis. Limited abdominal ultrasound on 03/10/2018 - mild splenomegaly with a splenic index of 850 and the normal range less than 480, no discrete splenic mass, subcapsular hematoma or adjacent ascites, multiple renal cysts as described, similar to that seen on CT 2 years ago, no hydronephrosis. CT chest without contrast on 03/14/2018 - Right-sided tunnel catheter. Multiple recent anterior and possibly posterior rib fractures noted bilaterally. Gallstones. Elevated right hemidiaphragm. No evidence of adenopathy. CT abdomen and pelvis without contrast on 03/14/2018 - No evidence of lymphadenopathy. Mild splenomegaly. Multiple bilateral renal cysts. Anderson catheter. Echocardiogram: Left ventricular diastolic dysfunction, dilated right heart chambers with hypokinesis of right ventricular free wall, moderate pulmonary hypertension. DVT prophylaxis ordered?: TEDs, sequentials, knee high compression. ASSESSMENT AND PLAN: This is a 62-year-old male with multiple co- morbidities and a complicated hospital course that required intubation, mechanical ventilation, and pressor support. Multifactorial etiology. PROBLEMS: 1. Critical illness myopathy: Continues to make improvements with physical and occupational therapy. Occupational therapy recommend out-of-bed to chair with stretcher chair. Both services have recommended that patient continue rehabilitation services once medically cleared for discharge. Bilateral MPO boots. Patient and family services have [facility] hemodialysis chair secured on Monday/Monday/Monday in the afternoon. Patient would need to be able to independently transfer from wheelchair to chair during hemodialysis. No [facility] beds available. Continue to work with occupational and physical therapy. 2. Acute renal failure superimposed on chronic kidney disease: Nephrology is consulted. Patient is making urine spontaneously. Patient continues with hem odialysis. He has converted to nonoliguric renal failure. Hemodialysis today, 03/23/2018. Patient is on Aranesp. Perm-A-Cath has been placed. Heparin ordered to flush catheter only. Prior GFR was 49.1. Renal recovery may bes possible. Will continue to monitor closely. Renal diet. Nepro supplementation ordered. Electrolyte management by hemodialysis and nephrology recommendations. Patient may be discharged to rehabilitative unit when medically cleared and may continue hemodialysis for acute renal failure as an outpatient. 3. Pancytopenia: Hematology/oncology consulted. Extensive work-up has been obtained. No signs of bleeding. Leukopenia has resolved. TEDs, sequentials, and knee high compression. Significantly improved thrombocytopenia; although remains mildly thrombocytopenic. Status-post 2 units PRBC. Patient has been thrombocytopenic and anemic in the past, possibly due to ITP or recent recovery from DIC. Recommend work-up for celiac disease once stabilized. Normal male karyotype. 4. Macrocytic anemia: Prior peripheral smears obtained. Iron studies appears to reveal anemia of chronic disease. Vitamin B12 level within normal limits (961); folate level is within normal limits. 5. Acute hypercarbic hypoxic respiratory failure: Required intubation and mechanical ventilation. Successfully extubated. Patient is currently saturating 95% on 2 L nasal cannula. Continue Acapella. Added incentive spirometry. 6. New onset atrial fibrillation with rapid ventricular response: Patient converted to normal sinus rhythm. Cardiology consulted. Continue Amiodarone 20 0mg by mouth thrice daily. Continue Carvedilol to 3.125mg by mouth every 6 hours with hold parameters and Lipitor 40mg by mouth nightly. Patient may benefit from cardiac evaluation with angiography; however, patient remains on hemodialysis and has a thrombocytopenia so further invasive cardiac evaluation is on hold for the time being. 7. Elevated troponin with lactic acidosis: Likely secondary to demand ischemia from hypoperfusion that required extensive pressor support. Echocardiogram obtained as resulted above. Cardiology consulted with recommendations for possible further cardiac intervention once patient is stabilized from a medical standpoint, if possible. Discontinued Aspirin. No nephrotoxic agents given acute tubular necrosis and currently requiring hemodialysis. Continue At orvastatin. Continue with beta-geri. 8. Shock liver: Resolved. Continue statin therapy. 9. Possible acute occult fracture of left knee: Orthopedics initially consulted. Recommended vascular surgery consultation. No surgical intervention secondary to patient's significant comorbidities. Patient may be weightbearing as tolerated, per updated orthopedic recommendations. Left lower extremity arterial Doppler ultrasound obtained. Limited secondary to ulcer on posterior aspect of left lower leg; however, no arterial stenosis noted in other arteries of the left lower extremity. Patient may use orthopedic brace. Discussed left lower extremity amputation (as has been discussed with patient previously). Continue with physical and occupational therapy. 10. 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 Wound bases are clean and non-malodorous. Completed a ten-day course of antibiotic therapy. Blood cultures negative. Dressing changes with Cheng Woodson, and Frankie nuñez. 11. CAUTI: Likely result of chronic indwelling Anderson catheter. Anderson catheter has been removed. No urinary complaints. Bladder and post-void residual scans ordered. Completed 10-day antibiotic course. 12. Alcohol dependence: Patient has significant alcohol history. No withdrawal symptoms during hospital course. Have started Folic acid and Multivitamin. No need for Benzodiazepine at this time. 13. Depression: Continue with Fluoxetine. 14. Dermatitis: Resolved. Continue with Clobetasol twice daily as needed for 4 weeks. 15. Cough with sputum production: Afebrile. Chest x-ray obtained was without acute infiltrate. Continue with Robitussin and suctioning. 16. Right shoulder pain: Apply K-pad to right shoulder. Could consider topical Lidocaine or other topical anesthetic agent for symptomatic relief. 17. Left upper quadrant abdominal pain: Prior abdominal imaging as noted above. Mild splenomegaly. Afebrile, not tachycardic, no hypotension. Continue with Protonix. Bowel regimen added. DISPOSITION: Continue physical and occupational therapy. Continue hemodialysis. Prolonged hospital course. Potential transfer to rehabilitative unit once patient is able to transfer independently into wheelchair. VS, I&O, 24H, [facility] Vital Signs/I&O Vital Signs Date Time Temp Pulse Resp B/P (MAP) Pulse Ox O2 Delivery O2 Flow Rate FiO2 03/23/18 06:38 18 03/23/18 06:09 63 110/72 03/23/18 06:00 98.4 95 2.0 03/21/18 06:00 Room Air I&O- Last 24 Hours up to 6 AM 03/23/18 06:00 Intake Total 1080 ml Output Total 1150 ml Balance -70 ml Laboratory Data 24H LABS Laboratory Tests 2 03/23/18 05:31: Nucleated Red Blood Cells % (auto) 0.0, Anion Gap 4L, Glomerular Filtration Rate 25.0L, Blood Urea Nitrogen 29#H, Creatinine 2.77H, Sodium Level 136, Potassium Level 4.0, Chloride Level 100, Carbon Dioxide Level 32, Calcium Level 8.4L, Aspartate Amino Transf (AST/SGOT) 23, Alanine Aminotransferase (ALT/SGPT) 16, Alkaline Phosphatase 172H, Total Bilirubin 0.5, Total Protein 7.7, Albumin 2.0L, Albumin/Globulin Ratio 0.35L CBC/BMP Laboratory Tests 03/23/18 05:31 Red Blood Count 3.15 L, Mean Corpuscular Volume 100.3 H, Mean Corpuscular Hemoglobin 31.1, Mean Corpuscular Hemoglobin Concent 31.0 L, Red Cell Distribution Width 15.9 H, Calcium Level 8.4 L, Aspartate Amino Transf (AST/SGOT) 23, Alanine Aminotransferase (ALT/SGPT) 16, Alkaline Phosphatase 172 H, Total Bilirubin 0.5, Total Protein 7.7, Albumin 2.0 L Microbiology Microbiology 03/20/18 Respiratory Virus Panel (PCR) ([facility]) - Final, Complete GME ATTESTATION GME ATTESTATION My faculty preceptor for this patient encounter was physically present during the encounter and was fully available. All aspects of the patient interview, examination, medical decision making process, and medical care plan development were reviewed and approved by the faculty preceptor. The faculty preceptor is aware and concurs with the plan as stated in the body of this note and will attest to such by his/her cosignature. ATTENDING NOTE I, Isacc Trevino, have both independently examined this patient as well as reviewed the documentation. I have discussed in detail with the resident the findings and plan of treatment as documented in the residents documentation. I will continue to follow the patient and offer further guidance to the patients care as necessary during this hospital stay. CARMINE COCHRAN DO Mar 23, 2018 15:35 ISACC TREVINO MD Apr 05, 2018 17:39
[2018-03-23] MEDS: traZODone 100 MG TAB PO SCH (20:00)
[2018-03-23] MEDS: ATORVASTATIN 20 MG TAB PO SCH (20:00)
[2018-03-23 22:00] VITALS: BP 148/79
[2018-03-24] MEDS: CARVedilol 3.125 MG TAB PO SCH ×4 (00:15→18:12)
[2018-03-24 02:00] VITALS: BP 141/63
[2018-03-24] MEDS: SLF 3 ML SYR IV SCH ×3 (05:29→21:08)
[2018-03-24 06:00] VITALS: BP 160/84
[2018-03-24 06:27] LABS: HEMATOCRIT 33.8 % (42.0-52.0); HEMOGLOBIN 10.4 g/dl (13.5-17.5); MEAN CORPUSCULAR HEMOGLOBIN 30.7 pg (27.0-33.0); MEAN CORPUSCULAR HGB CONC 30.8 g/dl (32.0-36.5); MEAN CORPUSCULAR VOLUME 99.7 fl (80.0-96.0); PLATELET COUNT, AUTOMATED 137 10^3/uL (150-450); RED BLOOD COUNT 3.39 10^6/uL (4.30-6.10)
[2018-03-24 06:50] LABS: ALBUMIN 2.1 GM/DL (3.2-5.2); BILIRUBIN,TOTAL 0.6 MG/DL (0.2-1.0); CALCIUM LEVEL 8.6 MG/DL (8.8-10.2); CREATININE FOR GFR 1.94 MG/DL (0.70-1.30); GLOMERULAR FILTRATION RATE 37.6 (>49); POTASSIUM SERUM 4.1 MEQ/L (3.5-5.1); TOTAL PROTEIN 8.1 GM/DL (6.4-8.2)
[2018-03-24] MEDS: PREGABALIN 100 MG CAP (LYRICA) PO SCH ×2 (09:29→21:07)
[2018-03-24] MEDS: SENOKOT S TAB PO SCH ×2 (09:29→21:07)
[2018-03-24] MEDS: AMIODARONE 200 MG TAB (PACERONE) PO SCH ×2 (09:29→21:08)
[2018-03-24] MEDS: PANTOPRAZOLE 40MG TAB (PROTONIX) PO SCH (09:29)
[2018-03-24] MEDS: FLUoxetine 20 MG CAP PO SCH (09:29)
[2018-03-24] MEDS: MULTIVITAMINS/MINERALS THERAP 1 TAB PO SCH (09:29)
[2018-03-24] MEDS: FOLIC ACID 1 MG TAB PO SCH (09:30)
[2018-03-24] MEDS: NYSTATIN 100,000 UNITS/GM TOPICAL PWD 15 GM TOP SCH ×2 (09:30→21:08)
[2018-03-24] MEDS: EUCERIN 120GM CREAM TOP SCH ×2 (09:30→21:00)
--- NOTE | 2018-03-24 10:14 | IPNPDOC ---
Date Seen The patient was seen on 03/24/18. Progress Note SUBJECTIVE: Patient is a 62-year-old male with fall for which he was evaluated by orthopedic surgery and determined that no intervention was required. Chronic left lower extremity wound and chronic indwelling Anderson catheter with both revealing microbial activity. Patient started on an tibiotics. Patient was found unresponsive hr consultant of 02/19/2018. He underwent for cardiopulmonary resuscitative events with successful return of spontaneous circulation obtained after each event. Patient was intubated, mechanically ventilated, and placed on three pressors. Elevated troponin without ST elevation possibly secondary to demand ischemia. Poor renal perfusion with anuria requiring hemodialysis. Successfully extubated on 02/24/2018 and transferred to hospitalist service. Patient is evaluated at bedside this morning. He is sitting up in bed eating breakfast. He is alert and conversant. He states that he feels as though food gets stuck in the back of his throat and points with one finger to the superior portion of his neck. He is able to get food down with a drink of water. He denies chest pain, shortness of breath, nausea, vomiting, abdominal pain. OBJECTIVE PHYSICAL EXAMINATION: VITAL SIGNS: Please see below. GENERAL: Morbidly obese male, alert and conversant, appropriately dressed in hospital attire, in no acute distress. HEENT: Atraumatic, normocephalic, PERRL, EOMI, oral mucosa appears pink and moist, nasal septum appears midline, nares are patent, dentition is poor, tongue and uvula are midline, no pharyngeal obstruction appreciated. CARDIOVASCULAR: Regular heart rate and rhythm, normal S1 and S2, no audible murmur, rub, click, Perm-A-Cath noted on right sided anterior chest. RESPIRATORY: Limited exam secondary to body habitus, bronchial breath sounds appreciated anteriorly, significantly improved rhonchi, symmetric airway entry, no audible focal consolidations, no wheeze, crackles. ABDOMINAL: Morbid, soft, nondistended, non-tender to palpation, no guarding, no rebound, bowel sounds appreciated throughout, no appreciable bruits, difficult to assess organomegaly due to body habitus. EXTREMITIES: Left lower extremity is wrapped in OptiLock and Coban, chronic venous stasis noted on bilateral lower extremities, +1 pitting peripheral edema on bilateral lower extremities, no clubbing, no cyanosis, no visible skin rashes or lesions. NEUROLOGICAL: No focal neurological deficits. PSYCHOLOGICAL: Mood and affect appear appropriate. LABORATORY DATA, IMAGING STUDIES, MICROBIOLOGY: Please see below. Right complete shoulder x-ray on 02/28/2018 - no acute fracture or dislocation. Abdominal flat plate x-ray on 03/02/2018 - air-filled normal caliber colon, no evidence of obstruction, degenerative changes and left hip and lumbar spine. Left lower extremity arterial ultrasound on 03/03/2018 - unable to obtain ANTHONY or Doppler measurements due to ulcer; normal triphasic waveforms and normal velocities from other lower extremity arteries; no evidence of arterial stenosis. Limited abdominal ultrasound on 03/10/2018 - mild splenomegaly with a splenic index of 850 and the normal range less than 480, no discrete splenic mass, lyon bcapsular hematoma or adjacent ascites, multiple renal cysts as described, similar to that seen on CT 2 years ago, no hydronephrosis. CT chest without contrast on 03/14/2018 - Right-sided tunnel catheter. Multiple recent anterior and possibly posterior rib fractures noted bilaterally. Gallstones. Elevated right hemidiaphragm. No evidence of adenopathy. CT abdomen and pelvis without contrast on 03/14/2018 - No evidence of lymphadenopathy. Mild splenomegaly. Multiple bilateral renal cysts. Anderson catheter. Echocardiogram: Left ventricular diastolic dysfunction, dilated right heart alize mbers with hypokinesis of right ventricular free wall, moderate pulmonary hypertension. DVT prophylaxis ordered?: TEDs, sequentials, knee high compression. ASSESSMENT AND PLAN: This is a 62-year-old male with multiple co- morbidities and a complicated hospital course that required intubation, mechanical ventilation, and pressor support. Multifactorial etiology. PROBLEMS: 1. Critical illness myopathy: Continues to make improvements with physical and occupational therapy. Occupational therapy recommend out-of-bed to chair with stretcher chair. Both services have recommended that patient continue rehabilitation services once medically cleared for discharge. Bilateral MPO boots. Patient and family services have [facility] hemodialysis chair secured on Monday/Monday/Monday in the afternoon. Patient would need to be able to independently transfer from wheelchair to chair during hemodialysis. No [facility] beds available. Continue to work with occupational and physical therapy. 2. Acute renal failure superimposed on chronic kidney disease: Nephrology is consulted. Patient is making urine spontaneously. Patient continues with hemodialysis. He has converted to nonoliguric renal failure. Hemodialysis on 03/23/2018 with 1 L removed. Patient is on Aranesp. Perm-A-Cath has been placed. Heparin ordered to flush catheter only. Prior GFR was 49.1. Renal recovery may bes possible. Will continue to monitor closely. Renal diet. Nepro supplementation ordered. Electrolyte management by hemodialysis and nephrology recommendations. Patient may be discharged to rehabilitative unit when medically cleared and may continue hemodialysis for acute renal failure as an outpatient. 3. Pancytopenia: Improved. Hematology/oncology consulted. Extensive work-up has been obtained. No signs of bleeding. Leukopenia has resolved. TEDs, sequentials, and knee high compression. Significantly improved thrombocytopenia; although remains mildly thrombocytopenic. Status-post 2 units PRBC. Patient has been thrombocytopenic and anemic in the past, possibly due to ITP or recent recovery from DIC. Recommend work-up for celiac disease once stabilized. Normal male karyotype. 4. Macrocytic anemia: Prior peripheral smears obtained. Iron studies appears to reveal anemia of chronic disease. Vitamin B12 level within normal limits (961); folate level is within normal limits. 5. Acute hypercarbic hypoxic respiratory failure: Required intubation and mechanical ventilation. Successfully extubated. Patient is currently saturating 95% on 2 L nasal cannula. Continue Acapella. Added incentive spirometry. 6. New onset atrial fibrillation with rapid ventricular response: Patient converted to normal sinus rhythm. Cardiology consulted. Continue Amiodarone 200mg by mouth thrice daily. Continue Carvedilol to 3.125mg by mouth every 6 hours with hold parameters and Lipitor 40mg by mouth nightly. Patient may benefit from cardiac evaluation with angiography; however, patient remains on hemodialysis and has a thrombocytopenia so further invasive cardiac evaluation is on hold for the time being. 7. Elevated troponin with lactic acidosis: Likely secondary to demand ischemia from hypoperfusion that required extensive pressor support. Echocardiogram o btained as resulted above. Cardiology consulted with recommendations for possible further cardiac intervention once patient is stabilized from a medical standpoint, if possible. Discontinued Aspirin. No nephrotoxic agents given acute tubular necrosis and currently requiring hemodialysis. Continue Atorvastatin. Continue with beta-geri. 8. Shock liver: Resolved. Continue statin therapy. 9. Possible acute occult fracture of left knee: Orthopedics initially consulted. Recommended vascular surgery consultation. No surgical intervention secondary to patient's significant comorbidities. Patient may be weightbearing as tolerated, per updated orthopedic recommendations. Left lower extremity arterial Doppler ultrasound obtained. Limited secondary to ulcer on posterior aspect of left lower leg; however, no arterial stenosis noted in other arteries of the left lower extremity. Patient may use orthopedic brace. Discussed left lower extremity amputation (as has been discussed with patient previously). Continue with physical and occupational therapy. 10. 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 Wound bases are clean and non-malodorous. Completed a ten-day course of antibiotic therapy. Blood cultures negative. Dressing changes with OptiLock, Kerlix, and Coban. 11. CAUTI: Likely result of chronic indwelling Anderson catheter. Anderson catheter has been removed. No urinary complaints. Bladder and post-void residual scans ordered. Completed 10-day antibiotic course. 12. Alcohol dependence: Patient has significant alcohol history. No withdrawal symptoms during hospital course. Have started Folic acid and Multivitamin. No need for Benzodiazepine at this time. 13. Depression: Continue with Fluoxetine. 14. Dermatitis: Resolved. Continue with Clobetasol twice daily as needed for 4 weeks. 15. Cough with sputum production: Afebrile. Chest x-ray obtained was without acute infiltrate. Continue with Robitussin and suctioning. 16. Right shoulder pain: Apply K-pad to right shoulder. Could consider topical Lidocaine or other topical anesthetic agent for symptomatic relief. 17. Left upper quadrant abdominal pain: Prior abdominal imaging as noted above. Mild splenomegaly. Afebrile, not tachycardic, no hypotension. Continue with Protonix. Bowel regimen added. 18. Dysphagia to solids: Speech therapy has been ordered. DISPOSITION: Continue physical and occupational therapy. Continue hemodialysis. Prolonged hospital course. Potential transfer to rehabilitative unit once patient is able to transfer independently into wheelchair. [facility] Vital Signs/I&O Vital Signs Date Time Temp Pulse Resp B/P (MAP) Pulse Ox O2 Delivery O2 Flow Rate FiO2 03/24/18 06:00 98.0 74 17 160/84 (109) 95 03/23/18 06:00 2.0 03/21/18 06:00 Room Air I&O- Last 24 Hours up to 6 AM 03/24/18 06:00 Intake Total 1040 ml Output Total 2200 ml Balance -1160 ml Laboratory Data 24H LABS Laboratory Tests 2 03/24/18 06:05: Nucleated Red Blood Cells % (auto) 0.0, Anion Gap 4L, Glomerular Filtration Rate 37.6L, Blood Urea Nitrogen 18, Creatinine 1.94H, Sodium Level 137, Potassium Level 4.1, Chloride Level 102, Carbon Dioxide Level 31, Calcium Level 8.6L, Aspartate Amino Transf (AST/SGOT) 28, Alanine Aminotransferase (ALT/SGPT) 17, Alkaline Phosphatase 170H, Total Bilirubin 0.6, Total Protein 8.1, Albumin 2.1L, Albumin/Globulin Ratio 0.35L CBC/BMP Laboratory Tests 03/24/18 06:05 Red Blood Count 3.39 L, Mean Corpuscular Volume 99.7 H, Mean Corpuscular Hemoglobin 30.7, Mean Corpuscular Hemoglobin Concent 30.8 L, Red Cell Distribution Width 15.9 H, Calcium Level 8.6 L, Aspartate Amino Transf (AST/SGOT) 28, Alanine Aminotransferase (ALT/SGPT) 17, Alkaline Phosphatase 170 H, Total Bilirubin 0.6, Total Protein 8.1, Albumin 2.1 L Microbiology Microbiology 03/20/18 Respiratory Virus Panel (PCR) ([facility]) - Final, Complete GME ATTESTATION GME ATTESTATION My faculty preceptor for this patient encounter was physically present during the encounter and was fully available. All aspects of the patient interview, examination, medical decision making process, and medical care plan development were reviewed and approved by the faculty preceptor. The faculty preceptor is a torres and concurs with the plan as stated in the body of this note and will attest to such by his/her cosignature. ATTENDING NOTE I, Isacc Trevino, have both independently examined this patient as well as reviewed the documentation. I have discussed in detail with the resident the findings and plan of treatment as documented in the residents documentation. I will continue to follow the patient and offer further guidance to the patients care as necessary during this hospital stay. CARMINE COCHRAN DO Mar 24, 2018 10:13 ISACC TREVINO MD Apr 05, 2018 17:42
[2018-03-24 12:03] VITALS: BP 136/79
[2018-03-24] MEDS: PERCOCET 5MG/325MG TAB PO PRN ×2 (12:17→21:15)
[2018-03-24 18:00] VITALS: BP 146/83
[2018-03-24] MEDS: ATORVASTATIN 20 MG TAB PO SCH (21:07)
[2018-03-24] MEDS: traZODone 100 MG TAB PO SCH (21:08)
[2018-03-24 22:00] VITALS: BP 148/85
[2018-03-25] MEDS: CARVedilol 3.125 MG TAB PO SCH ×5 (00:01→22:38)
[2018-03-25 02:00] VITALS: BP 141/83
[2018-03-25 06:00] VITALS: BP 154/85
[2018-03-25 06:39] LABS: HEMATOCRIT 32.1 % (42.0-52.0); MEAN CORPUSCULAR HEMOGLOBIN 30.6 pg (27.0-33.0); MEAN CORPUSCULAR HGB CONC 31.2 g/dl (32.0-36.5); MEAN CORPUSCULAR VOLUME 98.2 fl (80.0-96.0); PLATELET COUNT, AUTOMATED 144 10^3/uL (150-450); RED BLOOD COUNT 3.27 10^6/uL (4.30-6.10); WHITE BLOOD COUNT 4.7 10^3/uL (4.0-10.0)
[2018-03-25 07:16] LABS: ALBUMIN 2.1 GM/DL (3.2-5.2); BILIRUBIN,TOTAL 0.7 MG/DL (0.2-1.0); CALCIUM LEVEL 8.4 MG/DL (8.8-10.2); CREATININE FOR GFR 2.59 MG/DL (0.70-1.30); POTASSIUM SERUM 3.8 MEQ/L (3.5-5.1); TOTAL PROTEIN 8.1 GM/DL (6.4-8.2)
[2018-03-25] MEDS: EUCERIN 120GM CREAM TOP SCH ×2 (09:00→22:39)
[2018-03-25 10:00] VITALS: BP 126/65
[2018-03-25] MEDS: PANTOPRAZOLE 40MG TAB (PROTONIX) PO SCH (10:36)
[2018-03-25] MEDS: FOLIC ACID 1 MG TAB PO SCH (10:36)
[2018-03-25] MEDS: NYSTATIN 100,000 UNITS/GM TOPICAL PWD 15 GM TOP SCH ×2 (10:36→22:36)
[2018-03-25] MEDS: MULTIVITAMINS/MINERALS THERAP 1 TAB PO SCH (10:36)
[2018-03-25] MEDS: FLUoxetine 20 MG CAP PO SCH (10:36)
[2018-03-25] MEDS: PREGABALIN 100 MG CAP (LYRICA) PO SCH ×2 (10:37→22:37)
[2018-03-25] MEDS: AMIODARONE 200 MG TAB (PACERONE) PO SCH ×2 (10:37→22:37)
[2018-03-25] MEDS: SENOKOT S TAB PO SCH ×2 (10:37→22:38)
--- NOTE | 2018-03-25 10:40 | IPN ---
DATE: 03/24/2018 SUBJECTIVE: Patient was seen and examined at the bedside this morning. He is afebrile, hemodynamically stable. He was dialyzed yesterday. One liter of fluid was removed. Patient is still oliguric and dialysis dependent. He denies any active complaints at this point. OBJECTIVE: VITAL SIGNS: Temperature 98 degrees Fahrenheit, blood pressure 136/79, pulse 74, respiratory rate 70 saturating 95% in room air. Intake and output: Urine output recorded yesterday is 1 liter. So far today since overnight is 750 mL. Ultrafiltration with hemodialysis was 1 liter. Weight on the bed scale is 157.5 kg. PHYSICAL EXAMINATION: GENERAL: Patient is awake, alert, oriented times three, morbidly obese laying in bed in no apparent distress. HEAD/NECK: Extraocular muscles intact. Pupils equal, round, and reactive to light. Poor oral hygiene. Multiple dental caries. Neck is supple. There is no jugular venous distention (JVD). He has a right IJ tunnel hemodialysis catheter. CARDIOVASCULAR: S1, S2, regular rate. 1+ edema of the left lower extremity. No edema right lower extremity. RESPIRATORY: Chest is clear to auscultation bilaterally. Bilaterally good air entry. No rales or rhonchi. ABDOMEN: Soft. Obese, positive bowel sounds. Nontender. No organomegaly. : Anderson catheter has been removed. Bladder is not palpable. MUSCULOSKELETAL: Left leg is wrapped in a dressing and he has 1+ edema. Right lower extremity has no edema. SAMPLER RADIOACTIVE WASTE: No focal deficit. Power is 5/5 in bilateral upper extremities. LAB REVIEW: CBC showed a WBC 5, hemoglobin 10.4, platelets 137. BMP shows sodium 137, potassium 4.1, chloride 102, bicarbonate 31, BUN 18, creatinine 1.9, calcium 8.6, albumin 2.1. CURRENT INPATIENT MEDICATIONS: Patient's medications are all reviewed by me. There is no change in the medications today as compared with yesterday. ASSESSMENT/PLAN: 1. Acute renal failure superimposed on chronic kidney disease, stage III: Patient is still oliguric and dialysis dependent. I will continue to monitor his renal function in between dialysis and about stopping hemodialysis if his renal function starts improving. Next hemodialysis will be on Monday if his renal function does not show any signs of improvement. 2. Anemia secondary to renal failure. Hemoglobin is 10.4, which is optimal. Continue current dose of Aranesp 200 mg with hemodialysis. 3. Protein calorie malnutrition: Do continue daily Nepro with meals. Albumin level is slowly improving.
--- NOTE | 2018-03-25 11:26 | IPNPDOC ---
Text Note Date of Service The patient was seen on 03/25/18. NOTE Subjective: Patient is a 62 year old male with a PMHx of HTN, PAD, Venous stasis ulcers, Chronic L Leg ulceration (follows w/ Dr. Perera), Morbid obesity, Chronic back pain / Spinal cord injury (2001) / Wheelchair dependent, Depression who presented to the ER with L knee pain / L leg pain after he had fallen off of his wheelchair. Patient had an evaluation by Dr. Kwok (Orthopedic surgery) who recommended no intervention. Dr. Perera (Vascular surgery) was called on consultation. Patient was also found to have a urinary tract infection and was started on broad-spectrum antibiotics. On 02/19, patient experienced a cardiac arrest from hypoxemia and was found to be hypotensive. Patient was transferred to ICU after resuscitation. He was intubated and had a central line placed. Patient required pressor support and ventilatory support. Patient was treated for septic shock and possibly experienced a cardiac event given his elevation in troponin, high suspicion for NSTEMI. Throughout intensive care stay patient's pressors were tapered off and patient was ultimately extubated on 02/23/2018. He was transferred to the service of hospitalist team on 02/24/2018. Patient was seen and examined at the bedside. Patient no new concerns this morning. Denies any abdominal pain, nausea, vomiting, has had bowel movements. Denies any chest pain, shortness breath, palpitations. Objective: Vitals (See below) General: Lying in bed, no acute distress, comfortable, AAOx3 HEENT: NC, AT CVS: RRR, +S1S2 Lungs: Poor inspiratory effort bilaterally, auscultation status appeared to reveal any wheezing, rales or rhonchi Abdomen: Soft, ND, NT, morbid obesity Extremities: No evidence of LE edema, - Calf tenderness, left leg in dressing Assessment and plan: Critical illness myopathy - c/w PT / OT - Continuing to look into subacute rehabilitation placement s/p Ventilator dependent respiratory failure / Hypercapnic respiratory failure - Chronic hypercarbic respiratory / Obesity hypoventilation syndrome - Chronically elevated right hemidiaphragm - Has been weaning off supplemental oxygen - s/p Corticosteroids Elevated troponin - likely 2/2 demand ischemia 2/2 septic shock; less likely 2/2 NSTEMI - Troponin have improved - s/p telemetry monitoring - c/w Carvedilol; Atorvastatin; s/p ASA (re: thrombocytopenia) - Cardiology on consultation s/p A. fib with RVR - rate / rhythm controlled with Amiodarone - hold on full anticoagulation given poor platelet count - Cardiology on consultation s/p Septic shock - likely 2/2 Skin & soft tissue infection and Urinary tract infection - See below Left lower extremity acute wound infection on chronic non-healing ulcers - Initially presented to the hospital because of left leg pain - Physical with chronic wound changes - s/p Leukocytosis ; Lactic acidosis improved - Blood cultures 02/18: No growth at 5 days - Wound culture 02/18: Polymicrobial (Pseudomonas, Klebsiella, Streptococcus group C, Corynebacterium species, MRSA) - s/p antibiotic therapy Chronic fracture of left leg - CT imaging noted - Orthopedic surgery on consult; appreciate their input; - Will have outpatient f/u with Vascular surgery - patient is a poor surgical candidate; will await resolution of acute illnesses before pursing further surgery s/p Urinary tract infection - 2/2 CAUTI - Urine culture 02/18: Citrobacter Amalonaticus #2 - s/p antibiotics s/p Pancytopenia Normocytic anemia - Hg appears stable - Will continue to monitor s/p Thrombocytopenia - possibly 2/2 illness, possibly 2/2 anti-platelet therapy - No bleeding episodes noted - Counts have trended down - HIT antibody workup negative - Will discontinue ASA s/p Leukopenia - Hematology on consult; appreciate their input Acute renal failure on CKD3; s/p Oliguria - c/w HD; however possibly not dialysis dependent - Will continue to monitor renal function - Nephrology on consultation; will continue with HD as needed s/p Hypocalcemia s/p Electrolyte abnormalities s/p Elevated bilirubin - US abdomen 02/25: Cholelithiasis. Fatty infiltration of the liver. Multiple right renal cysts. s/p Transaminitis - likely 2/2 shocked liver 2/2 hypotension Alcohol dependence - No withdrawal symptoms - c/w Thiamine, Folate, MVI Depression - c/w Fluoxetine GI prophylaxis - c/w Protonix DVT prophylaxis - c/w SCDs Disposition: - Awaiting progression with PT/OT - Looking in ALE placement VS,Fishbone, I+O VS, Fishbone, I+O Laboratory Tests 03/25/18 06:16 Red Blood Count 3.27 L, Mean Corpuscular Volume 98.2 H, Mean Corpuscular Hemoglobin 30.6, Mean Corpuscular Hemoglobin Concent 31.2 L, Red Cell Distribution Width 15.8 H, Calcium Level 8.4 L, Aspartate Amino Transf (AST/SGOT) 27, Alanine Aminotransferase (ALT/SGPT) 17, Alkaline Phosphatase 161 H, Total Bilirubin 0.7, Total Protein 8.1, Albumin 2.1 L Vital Signs Date Time Temp Pulse Resp B/P (MAP) Pulse Ox O2 Delivery O2 Flow Rate FiO2 03/25/18 06:17 69 154/85 03/25/18 06:00 96.5 19 94 03/23/18 06:00 2.0 03/21/18 06:00 Room Air I&O- Last 24 Hours up to 6 AM 03/25/18 06:00 Intake Total 2656 ml Output Total 1800 ml Balance 856 ml KEE GROSS MD Mar 25, 2018 11:26
[2018-03-25 14:00] VITALS: BP 146/80
[2018-03-25 18:00] VITALS: BP 140/79
[2018-03-25 22:00] VITALS: BP 148/82
[2018-03-25] MEDS: traZODone 100 MG TAB PO SCH (22:37)
[2018-03-25] MEDS: PERCOCET 5MG/325MG TAB PO PRN (22:37)
[2018-03-25] MEDS: ATORVASTATIN 20 MG TAB PO SCH (22:38)
[2018-03-26 02:00] VITALS: BP 143/76
[2018-03-26 06:00] VITALS: BP 140/73
[2018-03-26] MEDS: SENOKOT S TAB PO SCH ×2 (06:32→22:05)
[2018-03-26] MEDS: PREGABALIN 100 MG CAP (LYRICA) PO SCH ×2 (06:32→22:06)
[2018-03-26] MEDS: MULTIVITAMINS/MINERALS THERAP 1 TAB PO SCH (06:32)
[2018-03-26] MEDS: CARVedilol 3.125 MG TAB PO SCH ×3 (06:33→18:20)
[2018-03-26] MEDS: FLUoxetine 20 MG CAP PO SCH (06:33)
[2018-03-26] MEDS: FOLIC ACID 1 MG TAB PO SCH (06:33)
[2018-03-26] MEDS: PANTOPRAZOLE 40MG TAB (PROTONIX) PO SCH (06:33)
[2018-03-26] MEDS: AMIODARONE 200 MG TAB (PACERONE) PO SCH ×2 (06:33→22:06)
[2018-03-26] MEDS: NYSTATIN 100,000 UNITS/GM TOPICAL PWD 15 GM TOP SCH ×2 (06:34→22:05)
[2018-03-26] MEDS: EUCERIN 120GM CREAM TOP SCH ×2 (06:34→22:05)
[2018-03-26 07:28] LABS: HEMATOCRIT 32.3 % (42.0-52.0); HEMOGLOBIN 10.1 g/dl (13.5-17.5); MEAN CORPUSCULAR HEMOGLOBIN 31.1 pg (27.0-33.0); MEAN CORPUSCULAR HGB CONC 31.3 g/dl (32.0-36.5); MEAN CORPUSCULAR VOLUME 99.4 fl (80.0-96.0); PLATELET COUNT, AUTOMATED 136 10^3/uL (150-450); RED BLOOD COUNT 3.25 10^6/uL (4.30-6.10); WHITE BLOOD COUNT 5.5 10^3/uL (4.0-10.0)
[2018-03-26 07:49] LABS: BILIRUBIN,TOTAL 0.5 MG/DL (0.2-1.0); CALCIUM LEVEL 8.7 MG/DL (8.8-10.2); CREATININE FOR GFR 3.03 MG/DL (0.70-1.30); GLOMERULAR FILTRATION RATE 22.5 (>49); POTASSIUM SERUM 4.1 MEQ/L (3.5-5.1); TOTAL PROTEIN 7.7 GM/DL (6.4-8.2)
[2018-03-26] MEDS ORDERED: HEPARIN 1,000 UNITS/ML 10ML VIAL (FOR RADIOLOGY& DIALYSIS ONLY) XX ONE (11:00)
[2018-03-26 14:00] VITALS: BP 145/76
--- NOTE | 2018-03-26 14:07 | IPN ---
DATE OF SERVICE: 03/25/2018 SUBJECTIVE: Patient was seen and examined at the bedside today, morning. Patient dens any acute complaints. Patient is making good amount of urine. However, his creatinine is still rising in between hemodialysis sessions. His volume status is optimized. OBJECTIVE: VITAL SIGNS: Temperature is 96.2 degrees Fahrenheit, blood pressure 126/65, pulse is 69, respiratory rate of 17, saturating 97% in room air. INTAKE AND OUTPUT: Urine output recorded as 1300 mL yesterday, 1.6 liters so far today since overnight. Weight on the bed scale is 156.7 kg. PHYSICAL EXAMINATION: GENERAL: Patient is awake, alert, oriented times three, morbidly obese, laying in bed, in no apparent distress. HEAD AND NECK EXAM: Extraocular muscles intact. Pupils equal, round, and reactive to light. Mucous membranes are moist. Neck is supple. She has a right internal jugular (IJ) tunneled hemodialysis catheter. CARDIOVASCULAR: S1, S2, regular rate. 1+ edema on left lower extremity. No edema on the right lower extremity. RESPIRATORY: Chest is clear to auscultation bilaterally. Bilaterally good air entry. No rales or rhonchi. ABDOMEN: Soft. Obese. Positive bowel sounds. No organomegaly was appreciated. MUSCULOSKELETAL: Left leg is covered in dressing. Decrease in movement of the left leg because of fracture. 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 Power is 5/5 in bilateral upper extremities. LAB REVIEW: CBC showed a WBC of 4.7, hemoglobin is 10, platelets are 144. BMP showed sodium 135, potassium 3.8, chloride 100, bicarbonate 32, BUN 28, creatinine is 2.5, it was 1.9 yesterday. CURRENT INPATIENT MEDICATIONS: Patient's medications were all reviewed by me. There is no change in the medications today as compared with yesterday. ASSESSMENT AND PLAN: 1. Acute renal failure superimposed on chronic kidney disease, stage III. Patient is dialysis dependent. However, his urine output is improving. Creatinine in between dialysis session is still rising. I would continue to monitor his interdialytic change in creatinine to see if we can stop his dialysis sometime in near future. 2. Anemia secondary to renal failure. Hemoglobin is optimal. Continue current dose of Aranesp with dialysis. 3. Hypertension. Blood pressure is optimal at this point. Continue current dose of Coreg 3.125 mg by mouth twice a day.
--- NOTE | 2018-03-26 15:08 | NUR ---
Bedside swallowing assessment conducted due to reported difficulty w/solid consistencies. Assessment indicated Oral dysphagia secondary to poor dentition. ST recommends level 3 diet with regular liquids. Provide pills whole in puree consistency (i.e. pudding). Pt complained of food/pills getting "stuck" in his throat. This was not seen during the assessment. ST will continue therapy for dysphagia management to educate on compensatory strategies to maximize safety and provide ongoing assessment for safest and least restrictive diet. Addendum: 03/26/18 at 1510 by RA AGRAWAL Amended: Links added.
--- NOTE | 2018-03-26 17:03 | IPNPDOC ---
Text Note Date of Service The patient was seen on 03/26/18. NOTE Subjective: Patient is a 62 year old male with a PMHx of HTN, PAD, Venous stasis ulcers, Chronic L Leg ulceration (follows w/ Dr. Perera), Morbid obesity, Chronic back pain / Spinal cord injury (2001) / Wheelchair dependent, Depression who presented to the ER with L knee pain / L leg pain after he had fallen off of his wheelchair. Patient had an evaluation by Dr. Kwok (Orthopedic surgery) who recommended no intervention. Dr. Perera (Vascular surgery) was called on consultation. Patient was also found to have a urinary tract infection and was started on broad-spectrum antibiotics. On 02/19, patient experienced a cardiac arrest from hypoxemia and was found to be hypotensive. Patient was transferred to ICU after resuscitation. He was intubated and had a central line placed. Patient required pressor support and ventilatory support. Patient was treated for septic shock and possibly experienced a cardiac event given his elevation in troponin, high suspicion for NSTEMI. Throughout intensive care stay patient's pressors were tapered off and patient was ultimately extubated on 02/23/2018. He was transferred to the service of hospitalist team on 02/24/2018. Patient was seen and examined at the bedside. Patient has no complaints this morning. Denies chest pain, shortness breath, palpitations, any cough. Denies any diarrhea, constipation, abdominal pain or nausea and vomiting. Objective: Vitals (See below) General: Lying in bed, no acute distress, comfortable, AAOx3 HEENT: NC, AT CVS: RRR, +S1S2 Lungs: Does not appear to have any evidence of wheezing, rhonchi or rales Abdomen: Soft, nondistended, without tenderness and is morbidly obese Extremities: No significant edema, - Calf tenderness, just has been changed on left leg Assessment and plan: Critical illness myopathy - c/w PT / OT - Continuing to look into subacute rehabilitation placement - Will transition patient to SNF / [facility]C s/p Ventilator dependent respiratory failure / Hypercapnic respiratory failure - Chronic hypercarbic respiratory / Obesity hypoventilation syndrome - Chronically elevated right hemidiaphragm - Has been weaning off supplemental oxygen - s/p Corticosteroids Elevated troponin - likely 2/2 demand ischemia 2/2 septic shock; less likely 2/2 NSTEMI - Troponin have improved - s/p telemetry monitoring - c/w Carvedilol; Atorvastatin; s/p ASA (re: thrombocytopenia) - Cardiology on consultation s/p A. fib with RVR - rate / rhythm controlled with Amiodarone - hold on full anticoagulation given poor platelet count - Cardiology on consultation s/p Septic shock - likely 2/2 Skin & soft tissue infection and Urinary tract infection - See below Left lower extremity acute wound infection on chronic non-healing ulcers - Initially presented to the hospital because of left leg pain - Physical with chronic wound changes - s/p Leukocytosis ; Lactic acidosis improved - Blood cultures 02/18: No growth at 5 days - Wound culture 02/18: Polymicrobial (Pseudomonas, Klebsiella, Streptococcus g roup C, Corynebacterium species, MRSA) - s/p antibiotic therapy Chronic fracture of left leg - CT imaging noted - Orthopedic surgery on consult; appreciate their input; - Will have outpatient f/u with Vascular surgery - patient is a poor surgical candidate; will await resolution of acute illnesses before pursing further surgery s/p Urinary tract infection - 2/2 CAUTI - Urine culture 02/18: Citrobacter Amalonaticus #2 - s/p antibiotics s/p Pancytopenia Normocytic anemia - Hg appears stable - Will continue to monitor s/p Thrombocytopenia - possibly 2/2 illness, possibly 2/2 anti-platelet therapy - No bleeding episodes noted - Counts have trended down - HIT antibody workup negative - Will discontinue ASA s/p Leukopenia - Hematology on consult; appreciate their input Acute renal failure on CKD3; s/p Oliguria - c/w HD; however possibly not dialysis dependent - Will continue to monitor renal function - Nephrology on consultation; will continue with HD as needed s/p Hypocalcemia s/p Electrolyte abnormalities s/p Elevated bilirubin - US abdomen 02/25: Cholelithiasis. Fatty infiltration of the liver. Multiple right renal cysts. s/p Transaminitis - likely 2/2 shocked liver 2/2 hypotension Alcohol dependence - No withdrawal symptoms - c/w Thiamine, Folate, MVI Depression - c/w Fluoxetine GI prophylaxis - c/w Protonix DVT prophylaxis - c/w SCDs Disposition: - Awaiting progression with PT/OT - Looking in ALE placement - Will transition patient to SNF / ALC VS,Fishbone, I+O VS, Fishbone, I+O Laboratory Tests 03/26/18 06:52 Red Blood Count 3.25 L, Mean Corpuscular Volume 99.4 H, Mean Corpuscular Hemoglobin 31.1, Mean Corpuscular Hemoglobin Concent 31.3 L, Red Cell Distri bution Width 15.6 H, Calcium Level 8.7 L, Aspartate Amino Transf (AST/SGOT) 31, Alanine Aminotransferase (ALT/SGPT) 19, Alkaline Phosphatase 187 H, Total Bilirubin 0.5, Total Protein 7.7, Albumin 2.0 L Vital Signs Date Time Temp Pulse Resp B/P (MAP) Pulse Ox O2 Delivery O2 Flow Rate FiO2 03/26/18 13:21 77 145/82 03/26/18 06:00 98.1 19 99 03/23/18 06:00 2.0 03/21/18 06:00 Room Air I&O- Last 24 Hours up to 6 AM 03/26/18 06:00 Intake Total 1960 ml Output Total 1350 ml Balance 610 ml KEE GROSS MD Mar 26, 2018 17:03
[2018-03-26 18:00] VITALS: BP 144/84
[2018-03-26 22:00] VITALS: BP 149/78
[2018-03-26] MEDS: traZODone 100 MG TAB PO SCH (22:05)
[2018-03-26] MEDS: ATORVASTATIN 20 MG TAB PO SCH (22:05)
[2018-03-27] MEDS: CARVedilol 3.125 MG TAB PO SCH ×4 (00:35→18:18)
[2018-03-27 06:00] VITALS: BP 144/75
--- NOTE | 2018-03-27 07:32 | IPN ---
DATE OF SERVICE: 03/26/2018 Patient was seen and examined at the bedside today morning during hemodialysis procedure. He was tolerating hemodialysis procedure well. The patient is non-oliguric at this point. He has made more than 2 liters of urine yesterday, however, creatinine is still rising in-between hemodialysis. He is still dialysis dependent at this point. OBJECTIVE: Vital signs: Temperature is 97.4 degrees Fahrenheit, blood pressure 145/76, pulse is 75, respiratory rate of 18, saturation 98% on room air. Intake and output: Urine output recorded as 2 liter yesterday, 200 mL so far today since overnight. Weight on the bed scale is 157 kg. PHYSICAL EXAMINATION: General: Patient is awake, alert, oriented times three. Morbidly obese. Lying in bed getting hemodialysis done. Head and neck exam: Extraocular muscles intact. Pupils equally round and reactive to light. Mucous membranes are moist. Neck is supple. There is no jugular venous distention. He has a right IJ tunneled hemodialysis catheter being used for dialysis. Cardiovascular: S1, S2. Regular rate. 1+ edema of the left lower extremity. Trace edema of the right lower extremity. Respiratory: Chest is clear to auscultation bilaterally. Bilateral equal air entry. No rales or rhonchi. Abdomen is soft, obese, positive bowel sounds. Nontender. Musculoskeletal: Left leg is covered in a dressing with decreased range of movement. No clubbing or cyanosis noted. 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 Power is 5/5 in bilateral upper extremities. LAB REVIEW: CBC showed WBC 5.5, hemoglobin 10.1, platelets of 136. BMP showed sodium 137, potassium 4.1, chloride 100, bicarbonate 30, BUN 35, creatinine 3.03. CURRENT INPATIENT MEDICATIONS: Patient's medications were all reviewed by me. There is no change in the medications today as compared with yesterday. ASSESSMENT AND PLAN: 1. Acute renal failure superimposed on chronic kidney disease stage III. Patient's renal function is slowly improving. He is on non-oliguric at this point. However, he still has interdialytic increase in creatinine. He is still dialysis dependent. Once his creatinine stops trending up, I would stop his hemodialysis. 2. Anemia secondary to renal failure. Hemoglobin is 10.1 which is optimal. Continue current dose of Aranesp 200 mcg with hemodialysis. 3. Hypertension with renal failure and hypertensive heart disease. Continue current dose of Coreg 3.125 mg by mouth twice a day.
[2018-03-27] MEDS: SENOKOT S TAB PO SCH ×2 (09:25→22:29)
[2018-03-27] MEDS: MULTIVITAMINS/MINERALS THERAP 1 TAB PO SCH (09:26)
[2018-03-27] MEDS: AMIODARONE 200 MG TAB (PACERONE) PO SCH ×2 (09:26→22:29)
[2018-03-27] MEDS: FOLIC ACID 1 MG TAB PO SCH (09:26)
[2018-03-27] MEDS: FLUoxetine 20 MG CAP PO SCH (09:26)
[2018-03-27] MEDS: PANTOPRAZOLE 40MG TAB (PROTONIX) PO SCH (09:26)
[2018-03-27] MEDS: PREGABALIN 100 MG CAP (LYRICA) PO SCH ×2 (09:26→22:29)
[2018-03-27] MEDS: EUCERIN 120GM CREAM TOP SCH ×2 (09:27→22:30)
[2018-03-27] MEDS: NYSTATIN 100,000 UNITS/GM TOPICAL PWD 15 GM TOP SCH ×2 (09:27→22:30)
[2018-03-27 22:00] VITALS: BP 137/75
[2018-03-27] MEDS: ATORVASTATIN 20 MG TAB PO SCH (22:29)
[2018-03-27] MEDS: traZODone 100 MG TAB PO SCH (22:29)
[2018-03-27] MEDS ORDERED: PILL CRUSHER/CUTTER 1 EACH XX PRN (22:45)
[2018-03-28] MEDS: CARVedilol 3.125 MG TAB PO SCH ×4 (01:09→18:41)
[2018-03-28 06:00] VITALS: BP 137/75
[2018-03-28] MEDS: FOLIC ACID 1 MG TAB PO SCH (06:25)
[2018-03-28] MEDS: SENOKOT S TAB PO SCH ×2 (06:25→22:02)
[2018-03-28] MEDS: AMIODARONE 200 MG TAB (PACERONE) PO SCH ×2 (06:26→22:02)
[2018-03-28] MEDS: MULTIVITAMINS/MINERALS THERAP 1 TAB PO SCH (06:26)
[2018-03-28] MEDS: EUCERIN 120GM CREAM TOP SCH ×2 (06:26→22:02)
[2018-03-28] MEDS: PREGABALIN 100 MG CAP (LYRICA) PO SCH ×2 (06:26→22:01)
[2018-03-28] MEDS: FLUoxetine 20 MG CAP PO SCH (06:26)
[2018-03-28] MEDS: PANTOPRAZOLE 40MG TAB (PROTONIX) PO SCH (06:26)
[2018-03-28] MEDS: NYSTATIN 100,000 UNITS/GM TOPICAL PWD 15 GM TOP SCH ×2 (06:27→22:01)
--- NOTE | 2018-03-28 06:58 | IPN ---
DATE OF SERVICE: 03/27/2018 SUBJECTIVE: Patient was seen and examined at the bedside today morning. He is afebrile, hemodynamically stable. Patient is non-oliguric at this time. He made more than 1 liter of urine yesterday. He was dialyzed yesterday. He tolerated the hemodialysis procedure well. OBJECTIVE: Vital signs: Temperature is 97.5 degrees Fahrenheit, blood pressure 144/75, pulse 76, respiratory rate of 18, saturating 95% on room air. Intake and output: Patient's urine output since overnight is 200 mL. Ultrafiltration with hemodialysis was 1.5 liter. Weight on the bed scale is 155.3 kg. PHYSICAL EXAMINATION: General: Patient is awake, alert, oriented times three, morbidly obese, lying in bed, no apparent distress. Head and neck exam: Extraocular muscles intact. Pupils equal, round, and reactive to light. Mucous membranes are moist. Neck is supple. He has a right IJ tunneled hemodialysis catheter. Cardiovascular: S1, S2. Regular rate. 1+ edema of the left lower extremity. Trace edema of the right lower extremity. Respiratory: Chest is clear to auscultation bilaterally. Bilateral equal air entry. No rales or rhonchi. Abdomen is soft, obese, positive bowel sounds. Nontender. Musculoskeletal: Left leg is covered in a dressing. There is decreased range of movement. Central nervous system: No focal neurological deficit. Power is 5/5 in bilateral upper extremities. LAB REVIEW: CBC is from yesterday. BMP is from yesterday as well. CURRENT INPATIENT MEDICATIONS: Patient's medications are all reviewed by me. There is no change in the medication today as compared with yesterday. ASSESSMENT AND PLAN: 1. Acute renal failure superimposed on chronic kidney disease stage III. Patient is still dialysis dependent. He was dialyzed yesterday, 1.5 liter of fluid was removed. I would continue to monitor his renal function for any sign of renal improvement. Continue Monday, Monday, Monday hemodialysis schedule at this time. 2. Anemia secondary to end stage renal disease. Hemoglobin is 10.1 which is optimal. Continue current dose of Aranesp with hemodialysis. 3. Hypertension. Continue current dose of Coreg 3.125 mg by mouth twice a day. DISPOSITION: Patient is alternate level of care. I would see him on dialysis days only and I will continue to monitor his renal function.
[2018-03-28 08:08] LABS: HEMATOCRIT 31.4 % (42.0-52.0); HEMOGLOBIN 10.1 g/dl (13.5-17.5); MEAN CORPUSCULAR HEMOGLOBIN 31.3 pg (27.0-33.0); MEAN CORPUSCULAR HGB CONC 32.2 g/dl (32.0-36.5); MEAN CORPUSCULAR VOLUME 97.2 fl (80.0-96.0); PLATELET COUNT, AUTOMATED 144 10^3/uL (150-450); RED BLOOD COUNT 3.23 10^6/uL (4.30-6.10); WHITE BLOOD COUNT 5.7 10^3/uL (4.0-10.0)
[2018-03-28 08:29] LABS: ALBUMIN 2.2 GM/DL (3.2-5.2); CALCIUM LEVEL 8.5 MG/DL (8.8-10.2); CREATININE FOR GFR 2.69 MG/DL (0.70-1.30); GLOMERULAR FILTRATION RATE 25.8 (>49); PHOSPHORUS LEVEL 2.8 MG/DL (2.5-4.9); POTASSIUM SERUM 4.2 MEQ/L (3.5-5.1)
[2018-03-28 20:00] VITALS: BP 164/85
[2018-03-28] MEDS ORDERED: FUROSEMIDE 20 MG/2 ML VIAL (J1940) IV ONE (20:30)
[2018-03-28] MEDS: traZODone 100 MG TAB PO SCH (22:01)
[2018-03-28] MEDS: ATORVASTATIN 20 MG TAB PO SCH (22:02)
[2018-03-28] MEDS ORDERED: FUROSEMIDE 20 MG TAB PO ONE (22:15)
[2018-03-29] MEDS: CARVedilol 3.125 MG TAB PO SCH ×5 (00:46→22:40)
[2018-03-29 06:00] VITALS: BP 136/77
[2018-03-29 06:18] LABS: ALBUMIN 2.2 GM/DL (3.2-5.2); CALCIUM LEVEL 8.5 MG/DL (8.8-10.2); CREATININE FOR GFR 2.87 MG/DL (0.70-1.30); PHOSPHORUS LEVEL 3.4 MG/DL (2.5-4.9); POTASSIUM SERUM 4.2 MEQ/L (3.5-5.1)
--- NOTE | 2018-03-29 09:19 | IPN ---
DATE OF SERVICE: 03/28/2018 SUBJECTIVE: Patient was seen and examined at the bedside today morning. He is afebrile, hemodynamically stable. Patient's last hemodialysis was on 03/26/2018. His creatinine since 03/26/2018 has been stable. He is nonoliguric at this point, although his urine output is not being recorded well because he is having incontinent voids. He denies any active complaints. OBJECTIVE: Vital Signs: Temperature is 96.8 degrees Fahrenheit, blood pressure 143/86, pulse 70, respiratory rate of 18, saturating 95% on room air. Intake and output: Urine output is not being recorded well. Weight on the bed scale was 155.3 kg. PHYSICAL EXAMINATION: General: Patient is awake, alert, oriented times three, morbidly obese, laying in bed, in no apparent distress. Head and Neck Exam: Extraocular muscles intact. Pupils equal, round, and reactive to light. Mucous membranes are moist. Neck is supple. He has a right IJ tunneled hemodialysis catheter. Cardiovascular: S1 and S2. Regular rate. 1+ edema of the left lower extremity. No edema of the right lower extremity. Respiratory: Chest is clear to auscultation bilaterally. Bilateral equal air entry. No rales or rhonchi. Abdomen is soft, obese, positive bowel sounds. Nontender. Musculoskeletal: Left leg is covered with dressing with decreased range of movement. Central Nervous System: No focal deficit. Power is 5/5 in bilateral upper extremities. LAB REVIEW: CBC showed a WBC of 5.7, hemoglobin 10.1, and platelets of 144. BMP showed sodium 136, potassium 4.2, chloride 102, bicarbonate 29, BUN 35, creatinine 2.6, calcium 8.5, phosphorus 2.8. CURRENT INPATIENT MEDICATIONS: Patient's medications were all reviewed by me. There is no change in the medications today as compared with yesterday. ASSESSMENT AND PLAN: 1. Acute renal failure superimposed on chronic kidney disease stage III. Patient is nonoliguric. Urine output is not being recorded well. His last hemodialysis was on 03/26/2018. I do not see any rise in creatinine since the last hemodialysis. I am going to hold off on dialysis today. I will give him a small dose of Lasix 20 mg IV today. I will continue to monitor his renal function and any need for hemodialysis. 2. Anemia and chronic kidney disease. Hemoglobin is optimal. He is getting Aranesp with hemodialysis. If his hemodialysis is stopped, I would switch his Aranesp to subcutaneously once a week. 3. Hypertension. Blood pressure is optimal. Continue current dose of Coreg 3.125 mg by mouth twice a day.
[2018-03-29] MEDS: NYSTATIN 100,000 UNITS/GM TOPICAL PWD 15 GM TOP SCH ×2 (09:48→22:39)
[2018-03-29] MEDS: MOM 30ML SUSPENSION UDC PO PRN (09:48)
[2018-03-29] MEDS: AMIODARONE 200 MG TAB (PACERONE) PO SCH ×2 (09:49→22:43)
[2018-03-29] MEDS: FOLIC ACID 1 MG TAB PO SCH (09:49)
[2018-03-29] MEDS: PREGABALIN 100 MG CAP (LYRICA) PO SCH ×2 (09:49→22:40)
[2018-03-29] MEDS: SENOKOT S TAB PO SCH ×2 (09:49→22:40)
[2018-03-29] MEDS: PANTOPRAZOLE 40MG TAB (PROTONIX) PO SCH (09:49)
[2018-03-29] MEDS: EUCERIN 120GM CREAM TOP SCH ×2 (09:49→22:39)
[2018-03-29] MEDS: FLUoxetine 20 MG CAP PO SCH (09:49)
[2018-03-29] MEDS: MULTIVITAMINS/MINERALS THERAP 1 TAB PO SCH (09:49)
[2018-03-29 14:05] VITALS: BP 133/73
[2018-03-29 22:00] VITALS: BP 159/95
[2018-03-29] MEDS: traZODone 100 MG TAB PO SCH (22:39)
[2018-03-29] MEDS: ATORVASTATIN 20 MG TAB PO SCH (22:40)
--- NOTE | 2018-03-29 23:40 | IPN ---
DATE: 03/29/2018 SUBJECTIVE: The patient was seen and examined at the bedside today morning. The patient is afebrile, hemodynamically stable. There is slight bump in his creatinine from 2.6 to 2.8. He denies any active complaints. The patient is nonoliguric at this point. He was given a small dose of Lasix yesterday. His last hemodialysis was on March 26, 2018. PHYSICAL EXAMINATION: GENERAL: The patient is awake, alert, oriented times 3. He is morbidly obese, laying in bed in no apparent distress. HEAD AND NECK EXAM: Extraocular muscles intact. Pupils equally round and reactive to light. Mucous membranes are moist. Neck is supple. He has a right internal jugular tunnel hemodialysis catheter. CARDIOVASCULAR: S1, S2 regular rate. 1+ edema of the left lower extremity. No edema of the right lower extremity. RESPIRATORY: Chest is clear to auscultation bilaterally. Bilateral equal air entry. No rales or rhonchi. ABDOMEN: Soft, obese. Positive bowel sounds. Nontender. No organomegaly. MUSCULOSKELETAL: Decreased range of movement of the left leg, it is covered with a dressing. RECEPTIONIST/TELEPHONE OPERATOR: No focal deficit. Power is 5/5 in bilateral upper extremities. LABORATORY REVIEW: Complete blood count (CBC) showed a white blood count (WBC) of 5.7, hemoglobin 10.1, it is from yesterday. Basic metabolic panel (BMP) done today morning showed sodium of 137, potassium 4.2, chloride 1010, bicarbonate 29, BUN 45, creatinine is 2.8, it was 2.6 yesterday. Phosphorus is 3.4. Calcium is 8.5. CURRENT INPATIENT MEDICATIONS: The patient's medications are all reviewed by me. He was given one dose of Lasix 20 mg by mouth last night. No other change in the medications today as compared with yesterday. ASSESSMENT AND PLAN: 1. Acute renal failure superimposed on chronic renal disease, stage III. The patient was hemodialysis dependent. His dialysis was on March 26, 2018. He has not required dialysis in the last three days. His creatinine has being stable. He was given a small dose of Lasix yesterday. I would continue to hold dialysis and monitor his renal function off hemodialysis 2. Anemia and chronic kidney disease. Hemoglobin is stable at 10.1. I am going to change his Aranesp to once a week as needed for hemoglobin less than 10. 3. Hypertension. Blood pressure is controlled with current dose of carvedilol. 4. Lower extremity edema. The patient will get as needed doses of Lasix. He was given one dose of furosemide yesterday and he made 1.4 liters of urine yesterday.
[2018-03-30] MEDS: CARVedilol 3.125 MG TAB PO SCH ×4 (05:09→22:41)
[2018-03-30 06:00] VITALS: BP 153/90
[2018-03-30 07:23] LABS: ALBUMIN 2.2 GM/DL (3.2-5.2); CALCIUM LEVEL 8.2 MG/DL (8.8-10.2); CREATININE FOR GFR 2.93 MG/DL (0.70-1.30); GLOMERULAR FILTRATION RATE 23.4 (>49); PHOSPHORUS LEVEL 3.3 MG/DL (2.5-4.9); POTASSIUM SERUM 4.2 MEQ/L (3.5-5.1)
[2018-03-30] MEDS: NYSTATIN 100,000 UNITS/GM TOPICAL PWD 15 GM TOP SCH ×2 (09:12→22:41)
[2018-03-30] MEDS: MULTIVITAMINS/MINERALS THERAP 1 TAB PO SCH (09:13)
[2018-03-30] MEDS: FOLIC ACID 1 MG TAB PO SCH (09:13)
[2018-03-30] MEDS: SENOKOT S TAB PO SCH ×2 (09:13→22:41)
[2018-03-30] MEDS: PANTOPRAZOLE 40MG TAB (PROTONIX) PO SCH (09:13)
[2018-03-30] MEDS: FLUoxetine 20 MG CAP PO SCH (09:13)
[2018-03-30] MEDS: AMIODARONE 200 MG TAB (PACERONE) PO SCH ×2 (09:13→22:41)
[2018-03-30] MEDS: PREGABALIN 100 MG CAP (LYRICA) PO SCH ×2 (09:13→22:42)
[2018-03-30] MEDS: EUCERIN 120GM CREAM TOP SCH ×2 (09:14→22:42)
[2018-03-30] MEDS ORDERED: TORSEMIDE 20 MG TAB PO ONE (09:30)
[2018-03-30] MEDS: traZODone 100 MG TAB PO SCH (22:41)
[2018-03-30] MEDS: ATORVASTATIN 20 MG TAB PO SCH (22:42)
[2018-03-31] MEDS: CARVedilol 3.125 MG TAB PO SCH ×3 (05:00→19:02)
[2018-03-31 06:00] VITALS: BP 137/76
[2018-03-31 06:23] LABS: BASO % 0.7 % (0.0-1.0); EOS # 0.1 10^3/uL (0.0-0.50); EOS % 2.2 % (0.0-3.0); HEMATOCRIT 30.4 % (42.0-52.0); HEMOGLOBIN 9.6 g/dl (13.5-17.5); LYMPH # 1.7 10^3/uL (1.5-4.5); LYMPH % 29.5 % (24.0-44.0); MEAN CORPUSCULAR HEMOGLOBIN 30.9 pg (27.0-33.0); MEAN CORPUSCULAR HGB CONC 31.6 g/dl (32.0-36.5); MEAN CORPUSCULAR VOLUME 97.7 fl (80.0-96.0); MONO # 0.7 10^3/uL (0.0-0.8); MONO % 11.3 % (0.0-5.0); NEUTROPHILS # 3.3 10^3/uL (1.8-7.7); PLATELET COUNT, AUTOMATED 150 10^3/uL (150-450); RED BLOOD COUNT 3.11 10^6/uL (4.30-6.10); WHITE BLOOD COUNT 5.8 10^3/uL (4.0-10.0)
[2018-03-31 06:45] LABS: ALBUMIN 2.3 GM/DL (3.2-5.2); CREATININE FOR GFR 3.12 MG/DL (0.70-1.30); GLOMERULAR FILTRATION RATE 21.8 (>49); PHOSPHORUS LEVEL 3.8 MG/DL (2.5-4.9); POTASSIUM SERUM 4.1 MEQ/L (3.5-5.1)
--- NOTE | 2018-03-31 07:12 | IPN ---
DATE OF SERVICE: 03/30/2018 SUBJECTIVE: Patient was seen and examined at the bedside today morning. He is afebrile, hemodynamically stable. He is making more than a liter of urine a day. There is slight bump in his creatinine from 2.8 to 2.9 today. However, patient has not been dialyzed since 03/26/2018. He denies any active complaints at this point. OBJECTIVE: Vital Signs: Temperature is 97.1 degrees Fahrenheit, blood pressure 132/72, pulse 76, respiratory rate of 20, saturating 96% on room air. Intake and output: Urine output recorded as 1 liter yesterday, 1.2 liters so far today since overnight. Weight on the bed scale is 155.4 kg. PHYSICAL EXAMINATION: General: Patient is awake, alert, oriented times three, morbidly obese, laying in bed, in no apparent distress. Head and Neck Exam: Extraocular muscles intact. Pupils equal, round, and reactive to light. Mucous membranes are moist. Neck is supple. There is no jugular venous distention (JVD). Cardiovascular: S1 and S2. Regular rate. 1+ edema of the left lower extremity. No edema of the right lower extremity. Respiratory: Chest is clear to auscultation bilaterally. Bilateral equal air entry. No rales or rhonchi. Abdomen is soft, obese, positive bowel sounds. Nontender. No organomegaly. Musculoskeletal: Decreased range of movement of the left leg. The patient is bedridden. Central Nervous System: No focal deficit. Power is 5/5 in bilateral upper extremities. LAB REVIEW: CBC showed a WBC of 5.7, hemoglobin 10.1, and platelets of 144. BMP showed sodium 135, potassium 4.2, chloride 100, bicarbonate 28, BUN 52, creatinine 2.9. CURRENT INPATIENT MEDICATIONS: Patient's medications were all reviewed by me. I gave the patient a dose of torsemide 20 mg by mouth times one dose. Aranesp was stopped yesterday. ASSESSMENT AND PLAN: 1. Acute renal failure superimposed on chronic kidney disease stage III. Patient has not been dialyzed for the last four days. Creatinine has been slowly trending up, however, patient's volume status is optimal. I just gave him a dose of torsemide 20 mg. No urgent need of hemodialysis. I will continue to monitor his renal function for any need of renal replacement therapy. 2. Anemia in chronic kidney disease. The patient's hemoglobin has been staying stable above 10. His Aranesp dose is on hold at this point. 3. Hypertension. Blood pressure is acceptable with current dose of carvedilol. 4. Lower extremity edema. Patient was given a dose of torsemide 20 mg. If he responds to this dose, I will continue him on the current dose of torsemide 20 mg daily if his renal function stays stable.
[2018-03-31] MEDS: MULTIVITAMINS/MINERALS THERAP 1 TAB PO SCH (09:50)
[2018-03-31] MEDS: SENOKOT S TAB PO SCH ×2 (09:50→22:30)
[2018-03-31] MEDS: PANTOPRAZOLE 40MG TAB (PROTONIX) PO SCH (09:50)
[2018-03-31] MEDS: EUCERIN 120GM CREAM TOP SCH ×2 (09:50→22:31)
[2018-03-31] MEDS: NYSTATIN 100,000 UNITS/GM TOPICAL PWD 15 GM TOP SCH ×2 (09:50→22:31)
[2018-03-31] MEDS: FLUoxetine 20 MG CAP PO SCH (09:50)
[2018-03-31] MEDS: PREGABALIN 100 MG CAP (LYRICA) PO SCH ×2 (09:50→22:30)
[2018-03-31] MEDS: FOLIC ACID 1 MG TAB PO SCH (09:50)
[2018-03-31] MEDS: AMIODARONE 200 MG TAB (PACERONE) PO SCH ×2 (09:50→22:30)
[2018-03-31] MEDS ORDERED: DARBEPOETIN 100 MCG/0.5 ML *DIALYSIS* SYRINGE (J0882) IV SCH (10:00)
[2018-03-31] MEDS: PERCOCET 5MG/325MG TAB PO PRN ×2 (10:01→22:32)
[2018-03-31] MEDS ORDERED: HEPARIN 1,000 UNITS/ML 10ML VIAL (FOR RADIOLOGY& DIALYSIS ONLY) XX ONE (11:00)
[2018-03-31] MEDS: ATORVASTATIN 20 MG TAB PO SCH (22:30)
[2018-03-31] MEDS: traZODone 100 MG TAB PO SCH (22:37)
[2018-04-01] MEDS: CARVedilol 3.125 MG TAB PO SCH ×4 (00:30→17:48)
[2018-04-01 06:00] VITALS: BP 139/87
[2018-04-01] MEDS: PERCOCET 5MG/325MG TAB PO PRN ×2 (06:14→13:02)
[2018-04-01] MEDS: NYSTATIN 100,000 UNITS/GM TOPICAL PWD 15 GM TOP SCH ×2 (09:44→22:20)
[2018-04-01] MEDS: MOM 30ML SUSPENSION UDC PO PRN (09:44)
[2018-04-01] MEDS: PREGABALIN 100 MG CAP (LYRICA) PO SCH ×2 (09:45→22:21)
[2018-04-01] MEDS: MULTIVITAMINS/MINERALS THERAP 1 TAB PO SCH (09:45)
[2018-04-01] MEDS: SENOKOT S TAB PO SCH ×2 (09:45→22:21)
[2018-04-01] MEDS: FOLIC ACID 1 MG TAB PO SCH (09:45)
[2018-04-01] MEDS: AMIODARONE 200 MG TAB (PACERONE) PO SCH ×2 (09:45→22:21)
[2018-04-01] MEDS: EUCERIN 120GM CREAM TOP SCH ×2 (09:45→22:20)
[2018-04-01] MEDS: FLUoxetine 20 MG CAP PO SCH (09:45)
[2018-04-01] MEDS: PANTOPRAZOLE 40MG TAB (PROTONIX) PO SCH (09:45)
--- NOTE | 2018-04-01 16:44 | IPN ---
DATE: 03/31/2018 SUBJECTIVE: Patient was seen and examined at the bedside this morning. The patient is afebrile, hemodynamically stable. He is now oliguric, he made more than 1.5 liters of urine yesterday. He denies any active complaints; however, his creatinine continues to slowly rise. His last hemodialysis was done on 03/26/2018. OBJECTIVE: Vital Signs: Temperature is 97.2 degrees Fahrenheit, blood pressure 137/76, pulse 78, respiratory rate of 20, saturating 96% on room air. Intake and output: Urine output recorded yesterday as 1.6 liter. Urine output recorded so far today is since overnight is 650 mL. Weight on the bed scale is stable at 154.8 kg. PHYSICAL EXAMINATION: General: Patient is awake, alert, oriented times three, morbidly obese, laying in bed, in no apparent distress. Head and Neck Exam: Extraocular muscles intact. Pupils equal, round, and reactive to light. Mucous membranes are moist. Neck is supple. There is a right IJ tunneled hemodialysis catheter. Cardiovascular: S1 and S2. Regular rate. 1+ edema of the left lower extremity. No edema of the right lower extremity. Respiratory: Chest is clear to auscultation bilaterally. Bilateral equal air entry. No rales or rhonchi. Abdomen is soft, obese, positive bowel sounds. Nontender. No organomegaly. Musculoskeletal: Decreased range of movement of the left leg. Otherwise, no clubbing or cyanosis. Central Nervous System: No focal deficit. Power is 5/5 in bilateral upper extremities. LABORATORY REVIEW: CBC showed a WBC of 5.8, hemoglobin 9.6, and platelets of 150. BMP showed sodium 136, potassium 4.1, chloride 100, bicarbonate 30, BUN 57, creatinine 3.1, it was 2.9 yesterday. CURRENT INPATIENT MEDICATIONS: Patient's medications were all reviewed by me. There is no change in the medications today as compared with yesterday. ASSESSMENT AND PLAN: 1. Acute renal failure superimposed on chronic kidney disease stage III. Patient was last dialyzed on 03/26/2018. Since dialysis, his creatinine is slowly rising. The patient will be dialyzed today. I will try to remove 1.5 liters of fluid. I will still continue to monitor the patient for improvement of his renal function. For now, while his GFR is running in the 20s, I will dialyze him only twice a week as needed. 2. Anemia in end stage renal disease. THe patient's hemoglobin was slowly dropping. I have restarted his Aranesp dose. 3. Lower extremity edema. Volume status is optimized. He was given a dose of torsemide yesterday. He made 1600 mL of fluid and 1.5 liters of fluid will also be removed during dialysis today.
[2018-04-01] MEDS: ATORVASTATIN 20 MG TAB PO SCH (22:21)
[2018-04-01] MEDS: traZODone 100 MG TAB PO SCH (22:21)
[2018-04-02] MEDS: CARVedilol 3.125 MG TAB PO SCH ×4 (01:16→18:00)
[2018-04-02 06:00] VITALS: BP 134/72
[2018-04-02 06:40] LABS: HEMATOCRIT 30.1 % (42.0-52.0); HEMOGLOBIN 9.7 g/dl (13.5-17.5); MEAN CORPUSCULAR HGB CONC 32.2 g/dl (32.0-36.5); MEAN CORPUSCULAR VOLUME 96.2 fl (80.0-96.0); PLATELET COUNT, AUTOMATED 145 10^3/uL (150-450); RED BLOOD COUNT 3.13 10^6/uL (4.30-6.10); WHITE BLOOD COUNT 6.4 10^3/uL (4.0-10.0)
[2018-04-02] MEDS: SENOKOT S TAB PO SCH ×2 (06:44→21:09)
[2018-04-02] MEDS: AMIODARONE 200 MG TAB (PACERONE) PO SCH ×2 (06:44→21:10)
[2018-04-02] MEDS: MULTIVITAMINS/MINERALS THERAP 1 TAB PO SCH (06:45)
[2018-04-02] MEDS: FLUoxetine 20 MG CAP PO SCH (06:45)
[2018-04-02] MEDS: PANTOPRAZOLE 40MG TAB (PROTONIX) PO SCH (06:45)
[2018-04-02] MEDS: PREGABALIN 100 MG CAP (LYRICA) PO SCH ×2 (06:46→21:09)
[2018-04-02] MEDS: NYSTATIN 100,000 UNITS/GM TOPICAL PWD 15 GM TOP SCH ×2 (06:46→21:09)
[2018-04-02] MEDS: FOLIC ACID 1 MG TAB PO SCH (06:46)
[2018-04-02] MEDS: EUCERIN 120GM CREAM TOP SCH ×2 (06:46→21:09)
[2018-04-02 06:59] LABS: ALBUMIN 2.3 GM/DL (3.2-5.2); BILIRUBIN,TOTAL 0.5 MG/DL (0.2-1.0); CALCIUM LEVEL 8.1 MG/DL (8.8-10.2); CREATININE FOR GFR 2.53 MG/DL (0.70-1.30); GLOMERULAR FILTRATION RATE 27.7 (>49); POTASSIUM SERUM 4.1 MEQ/L (3.5-5.1); TOTAL PROTEIN 8.2 GM/DL (6.4-8.2)
[2018-04-02] MEDS ORDERED: TORSEMIDE 20 MG TAB PO ONE (09:45)
--- NOTE | 2018-04-02 10:23 | IPN ---
DATE: 04/02/2018 Rocio was seen on [address] [facility]. He is on group home facility (SNF) level of care on the hospitalist service. He is getting his dialysis regularly. He denies chest pain, shortness of breath, lower extremity edema. He has had normal bowel movements. PHYSICAL EXAMINATION: Afebrile. Vital signs stable. 134/72. Lungs clear. Heart regular rhythm. Abdomen obese, nontender, no masses. No peripheral edema. LABS: White count 6.4, hemoglobin 9.7, platelets 145. Sodium 134, potassium 4.1, BUN 39, creatinine 2.5, glucose 94. IMPRESSION: 1. Critical illness myopathy. Continue physical therapy (PT), occupational therapy (OT) and waiting for a subacute rehabilitation placement. 2. Hypercapnic respiratory failure. This seems to be stable. 3. Atrial fibrillation with rapid ventricular response. Rate is under good control. He is on amiodarone. 4. Hemodialysis dependent renal failure. Per nephrology. Dr. Garima Ramirez will be assuming his care tomorrow.
[2018-04-02] MEDS: ATORVASTATIN 20 MG TAB PO SCH (21:09)
[2018-04-02] MEDS: traZODone 100 MG TAB PO SCH (21:09)
--- NOTE | 2018-04-02 21:21 | IPN ---
DATE: 04/01/2018 SUBJECTIVE: Rocio is seen and examined this morning at the bedside. Denies acute events or issues. States he would like to be manually disimpacted as he feels his stool is soft, but he is having trouble completely evacuating. He was dialyzed yesterday with 1500 mL of fluid removed, which he tolerated without issue. Vital signs: Temperature 97.0, pulse 74, respiratory rate 18, blood pressure 139/87, saturating 96% on room air. Intake yesterday was 960, urine output yesterday was 900, dialysis removed 1500. Weight on the bed scale today is 154 kg. General: The patient is seen lying in bed, awake, alert, oriented times three, obese, in no acute distress. Extraocular muscles are intact. Mucous membranes are moist. He is comfortable on room air. There is a right internal jugular (IJ) tunneled hemodialysis catheter present. Cardiac: S1, S2, distant heart sounds. Regular rate. There is 1+ edema in the left lower extremity, and no edema of the right lower extremity. Respiratory: Breath sounds are distant but clear. No rales or rhonchi. Abdomen: Soft and obese. There are bowel sounds. Abdomen is nontender. Musculoskeletal: There is decreased range of motion of the left leg. Genitourinary: There is no suprapubic fullness to suggest distended bladder, although it is a little hard to evaluate given his body habitus. Neurologic: He is oriented, interactive and conversational. LABORATORY: White count 5.8, hemoglobin 9.6, platelets 150. Sodium 136, potassium 4.1, bicarbonate 30, BUN 57. INPATIENT MEDICATIONS: Reviewed by myself and no medication changes are noted. PROBLEMS: 1. Nonoliguric renal failure on chronic kidney disease stage III. He was dialyzed twice in the last week. He continues to have a mild rise in the interdialytic creatinine; hence he is still hemodialysis dependent at present. Although the frequency of his dialysis needs is decreasing, he will be reassessed for dialysis needs on a daily basis, and we will continue on intermittent diuretics as well and we will continue to watch for further signs of renal recovery. 2. Anemia in chronic kidney disease. Hemoglobin is fairly stable between 9s and 10s, and we will give him Aranesp with the next dialysis treatment for a target hemoglobin of 10 to 11. His iron stores are adequate. 3. Diastolic congestive heart failure. Volume status is presently acceptable, and he will be given either diuretics or dialysis as needed for fluid removal. 4. Hypertension. Blood pressures are acceptable. There is also a history of atrial fibrillation, and he continues on carvedilol for both the atrial fibrillation and the hypertension, as well as amiodarone.
[2018-04-03] MEDS: CARVedilol 3.125 MG TAB PO SCH ×4 (00:37→17:56)
[2018-04-03 06:00] VITALS: BP 128/68
[2018-04-03 07:07] LABS: CALCIUM LEVEL 8.2 MG/DL (8.8-10.2); CREATININE FOR GFR 2.81 MG/DL (0.70-1.30); GLOMERULAR FILTRATION RATE 24.5 (>49); MAGNESIUM LEVEL 2.2 MG/DL (1.8-2.4); POTASSIUM SERUM 3.8 MEQ/L (3.5-5.1)
[2018-04-03 08:30] VITALS: BP 116/67
[2018-04-03] MEDS: NYSTATIN 100,000 UNITS/GM TOPICAL PWD 15 GM TOP SCH ×3 (09:00→22:05)
[2018-04-03] MEDS: SENOKOT S TAB PO SCH ×2 (09:00→22:04)
[2018-04-03] MEDS: PREGABALIN 100 MG CAP (LYRICA) PO SCH ×2 (09:14→22:04)
[2018-04-03] MEDS: PANTOPRAZOLE 40MG TAB (PROTONIX) PO SCH (09:51)
[2018-04-03] MEDS: MULTIVITAMINS/MINERALS THERAP 1 TAB PO SCH (09:52)
[2018-04-03] MEDS: FOLIC ACID 1 MG TAB PO SCH (09:52)
[2018-04-03] MEDS: TORSEMIDE 20 MG TAB PO SCH ×2 (09:52→22:04)
[2018-04-03] MEDS: AMIODARONE 200 MG TAB (PACERONE) PO SCH ×2 (09:53→22:04)
[2018-04-03] MEDS: FLUoxetine 20 MG CAP PO SCH (09:53)
[2018-04-03] MEDS: EUCERIN 120GM CREAM TOP SCH ×2 (09:54→22:04)
[2018-04-03 12:00] VITALS: BP 119/85
[2018-04-03] MEDS: traZODone 100 MG TAB PO SCH (22:03)
[2018-04-03] MEDS: ATORVASTATIN 20 MG TAB PO SCH (22:03)
[2018-04-04] MEDS: CARVedilol 3.125 MG TAB PO SCH ×4 (01:08→18:35)
[2018-04-04] MEDS: FOLIC ACID 1 MG TAB PO SCH (05:43)
[2018-04-04] MEDS: AMIODARONE 200 MG TAB (PACERONE) PO SCH ×2 (05:43→21:30)
[2018-04-04] MEDS: MULTIVITAMINS/MINERALS THERAP 1 TAB PO SCH (05:43)
[2018-04-04] MEDS: PANTOPRAZOLE 40MG TAB (PROTONIX) PO SCH (05:43)
[2018-04-04] MEDS: TORSEMIDE 20 MG TAB PO SCH ×2 (05:43→21:30)
[2018-04-04] MEDS: PREGABALIN 100 MG CAP (LYRICA) PO SCH ×2 (05:43→21:30)
[2018-04-04] MEDS: FLUoxetine 20 MG CAP PO SCH (05:43)
[2018-04-04] MEDS: SENOKOT S TAB PO SCH ×2 (05:43→21:30)
[2018-04-04] MEDS: EUCERIN 120GM CREAM TOP SCH ×2 (05:45→21:34)
[2018-04-04] MEDS: NYSTATIN 100,000 UNITS/GM TOPICAL PWD 15 GM TOP SCH ×2 (05:45→21:35)
[2018-04-04 06:00] VITALS: BP 120/70
[2018-04-04 07:15] LABS: HEMATOCRIT 30.8 % (42.0-52.0); HEMOGLOBIN 9.7 g/dl (13.5-17.5); MEAN CORPUSCULAR HEMOGLOBIN 30.6 pg (27.0-33.0); MEAN CORPUSCULAR HGB CONC 31.5 g/dl (32.0-36.5); MEAN CORPUSCULAR VOLUME 97.2 fl (80.0-96.0); PLATELET COUNT, AUTOMATED 165 10^3/uL (150-450); RED BLOOD COUNT 3.17 10^6/uL (4.30-6.10); WHITE BLOOD COUNT 6.6 10^3/uL (4.0-10.0)
[2018-04-04 07:25] LABS: CALCIUM LEVEL 7.9 MG/DL (8.8-10.2); CREATININE FOR GFR 2.99 MG/DL (0.70-1.30); GLOMERULAR FILTRATION RATE 22.8 (>49); POTASSIUM SERUM 3.8 MEQ/L (3.5-5.1)
[2018-04-04] MEDS ORDERED: HEPARIN 1,000 UNITS/ML 10ML VIAL (FOR RADIOLOGY& DIALYSIS ONLY) XX ONE (11:30)
--- NOTE | 2018-04-04 15:04 | IPN ---
DATE: 01/31/2019 SUBJECTIVE: Rocio is seen and examined this morning at the bedside. Denies any acute overnight events or issues. Made just under a liter of urine yesterday and laboratories show a rise in interdialytic creatinine. I advised him he will need dialysis tomorrow. Temperature 97.2, pulse 78, respiratory rate 20, blood pressure 119/85, saturating 96% on room air. Intake yesterday was 1800, urine output yesterday was 980. Weight in the bed scale today is not recorded. GENERAL: The patient is seen lying in bed, awake, alert, oriented times three, obese, in no acute distress. Extraocular muscles are intact. Mucous membranes are moist. He is comfortable on room air. There is a right internal jugular (IJ) tunneled hemodialysis catheter present. Neck veins are not elevated. CARDIAC: S1, S2. Regular rate. There is 1+ edema in the left lower extremity. There is trace edema in the right lower extremity. RESPIRATORY: Breath sounds are distant but clear. No rales or rhonchi. ABDOMEN: Soft and obese. There are bowel sounds. Abdomen is nontender. NEUROLOGIC: He is oriented times three, interactive and conversational. LABORATORY DATA: Sodium 135, potassium 3.8, bicarbonate 29, BUN 48, creatinine tamra from 2.5 to 2.8. Hemoglobin 9.7. INPATIENT MEDICATIONS: Reviewed by myself and I started the patient on torsemide 20 mg by mouth twice a day. Remainder of medications are unchanged from prior. PROBLEMS: 1. Nonoliguric renal failure superimposed on chronic kidney disease (CKD), stage III. The patient does remain dialysis dependent at this time. He continues to have a rise in interdialytic creatinine. His urine output is suboptimal, less than one liter a day for the past three days. I am putting him on torsemide 20 mg by mouth twice a day. He will have a dialysis treatment tomorrow and we will continue to monitor him for any ongoing signs of renal recovery. 2. Anemia and chronic kidney disease. Hemoglobin is fairly stable between 9s and 10s, and he continues on weekly Aranesp for a target hemoglobin of 10-11. His iron stores are adequate. 3. Diastolic congestive heart failure. Mild hypervolemia on examination. I am putting him on torsemide 20 mg by mouth twice a day and he will be dialyzed tomorrow with goal fluid removal of 1.5 liters. 4. Hypertension. Blood pressures are acceptable. There is also a history of atrial fibrillation and he continues on carvedilol for both blood pressure control and rate control. He is on amiodarone as well.
[2018-04-04 18:29] VITALS: BP 134/71
[2018-04-04] MEDS: CALCIUM CARBONATE 500 MG CHEW U/D PO PRN (21:30)
[2018-04-04] MEDS: PERCOCET 5MG/325MG TAB PO PRN (21:30)
[2018-04-04] MEDS: traZODone 100 MG TAB PO SCH (21:30)
[2018-04-04] MEDS: ATORVASTATIN 20 MG TAB PO SCH (21:31)
[2018-04-04 22:00] VITALS: BP 133/78
[2018-04-05] MEDS: CARVedilol 3.125 MG TAB PO SCH ×4 (00:24→18:04)
[2018-04-05 06:00] VITALS: BP 147/81
[2018-04-05] MEDS: MULTIVITAMINS/MINERALS THERAP 1 TAB PO SCH (09:43)
[2018-04-05] MEDS: AMIODARONE 200 MG TAB (PACERONE) PO SCH ×2 (09:43→20:26)
[2018-04-05] MEDS: PREGABALIN 100 MG CAP (LYRICA) PO SCH ×2 (09:43→20:26)
[2018-04-05] MEDS: FOLIC ACID 1 MG TAB PO SCH (09:43)
[2018-04-05] MEDS: TORSEMIDE 20 MG TAB PO SCH ×2 (09:43→20:26)
[2018-04-05] MEDS: FLUoxetine 20 MG CAP PO SCH (09:43)
[2018-04-05] MEDS: SENOKOT S TAB PO SCH ×2 (09:43→20:25)
[2018-04-05] MEDS: PANTOPRAZOLE 40MG TAB (PROTONIX) PO SCH (09:43)
[2018-04-05] MEDS: NYSTATIN 100,000 UNITS/GM TOPICAL PWD 15 GM TOP SCH ×2 (09:44→20:26)
[2018-04-05] MEDS: EUCERIN 120GM CREAM TOP SCH ×2 (09:44→20:26)
[2018-04-05 10:05] LABS: CALCIUM LEVEL 8.7 MG/DL (8.8-10.2); CREATININE FOR GFR 2.26 MG/DL (0.70-1.30); GLOMERULAR FILTRATION RATE 31.6 (>49); POTASSIUM SERUM 3.3 MEQ/L (3.5-5.1)
[2018-04-05] MEDS: ATORVASTATIN 20 MG TAB PO SCH (20:25)
[2018-04-05] MEDS: traZODone 100 MG TAB PO SCH (20:26)
[2018-04-06] MEDS: CARVedilol 3.125 MG TAB PO SCH ×4 (00:29→18:15)
[2018-04-06 06:00] VITALS: BP 129/73
[2018-04-06] MEDS: SENOKOT S TAB PO SCH ×2 (08:46→21:19)
[2018-04-06] MEDS: FOLIC ACID 1 MG TAB PO SCH (08:46)
[2018-04-06] MEDS: MULTIVITAMINS/MINERALS THERAP 1 TAB PO SCH (08:46)
[2018-04-06] MEDS: PANTOPRAZOLE 40MG TAB (PROTONIX) PO SCH (08:46)
[2018-04-06] MEDS: EUCERIN 120GM CREAM TOP SCH ×2 (08:46→21:19)
[2018-04-06] MEDS: FLUoxetine 20 MG CAP PO SCH (08:46)
[2018-04-06] MEDS: PREGABALIN 100 MG CAP (LYRICA) PO SCH ×2 (08:46→21:19)
[2018-04-06] MEDS: AMIODARONE 200 MG TAB (PACERONE) PO SCH ×2 (08:46→21:20)
[2018-04-06] MEDS: NYSTATIN 100,000 UNITS/GM TOPICAL PWD 15 GM TOP SCH ×2 (08:46→21:19)
[2018-04-06] MEDS: TORSEMIDE 20 MG TAB PO SCH ×2 (08:46→21:19)
[2018-04-06 09:08] LABS: BLOOD UREA NITROGEN 49 MG/DL (7-18); CALCIUM LEVEL 8.5 MG/DL (8.8-10.2); CARBON DIOXIDE LEVEL 28 MEQ/L (21-32); CHLORIDE LEVEL 97 MEQ/L (98-107); CREATININE FOR GFR 2.76 MG/DL (0.70-1.30); GLOMERULAR FILTRATION RATE 25.1 (>49); GLUCOSE, FASTING 133 MG/DL (70-100); POTASSIUM SERUM 3.4 MEQ/L (3.5-5.1); SODIUM LEVEL 133 MEQ/L (136-145)
[2018-04-06] MEDS ORDERED: HEPARIN 1,000 UNITS/ML 10ML VIAL (FOR RADIOLOGY& DIALYSIS ONLY) XX ONE (10:15)
[2018-04-06] MEDS ORDERED: TUBERCULIN PPD 5 UNITS/0.1 ML ID ONE (12:00)
[2018-04-06 12:18] LABS: HEPATITIS B SURFACE ANTIBODY NEGATIVE (POSITIVE)
--- NOTE | 2018-04-06 15:14 | IPN ---
DATE: 04/04/2018 SUBJECTIVE: Rocio is seen and examined this morning in the hemodialysis unit receiving his maintenance treatment. Denies any acute overnight events or issues. Reports that he has been working with rehabilitation. Goal fluid removal today is 1500 mL. Patient denies shortness of breath at rest. Vital signs: Temperature 98.4, pulse 75, respiratory rate 18, blood pressure 120/70, saturating 91% on room air. Intake yesterday was 1320, urine output yesterday was 800, goal fluid removal with dialysis today is 1500. Weight in the bed scale today is 153.8 kg. General: Patient is seen in the hemodialysis unit receiving his maintenance treatment, awake, alert, oriented, comfortable, no acute distress, morbidly obese male. Extraocular muscles are intact. Tongue is moist. Neck is supple. Tunneled hemodialysis catheter in the right internal jugular (IJ) is in use. Cardiac: S1, S2, regular rate and rhythm. Lungs: Anterior auscultation only shows distant breath sounds that are clear. No rale or rhonchi. Abdomen is soft and obese. There are bowel sounds. Abdomen is nontender. The left lower extremity is wrapped in dressings and has edema. The right lower extremity has some chronic venous stasis changes. Neurologic: He is oriented times three, interactive, and conversational. LABORATORY DATA: White count 6.6, hemoglobin 9.7, platelets 165, sodium 134, potassium 3.8, bicarbonate 26, BUN 57, creatinine 2.9. INPATIENT MEDICATIONS: Reviewed by myself and no change from prior. PROBLEMS: 1. Non-oliguric renal failure superimposed on chronic kidney disease (CKD) stage III. Renal failure was in the setting of cardiac arrest and shock. He is non-oliguric but he does remain dialysis dependent. Continues to have rise in interdialytic creatinine and urine output has been around a liter or less per day. He is on chronic diuretic, torsemide 20 mg by mouth twice a day. He is dialyzed today with goal fluid removal of 1500 mL. We will continue to watch him for further signs of renal recovery. Until then I have advised him that at present he remains hemodialysis dependent. 2. Anemia related to chronic kidney disease. His hemoglobin has been stable but suboptimal at 9.7. He continues on weekly Aranesp. He has been receiving heparin free dialysis due to thrombocytopenia which has improved over the course of this hospitalization. 3. Diastolic congestive heart failure. Mild hypervolemia on exam. Goal fluid removal today is 1.5 liters with dialysis. Continue torsemide 20 mg by mouth twice a day as well. His next dialysis treatment is likely to be on Monday. 4. Hypertension. Blood pressures are acceptable and no changes are being made.
[2018-04-06] MEDS: traZODone 100 MG TAB PO SCH (21:19)
[2018-04-06] MEDS: ATORVASTATIN 20 MG TAB PO SCH (21:20)
[2018-04-06] MEDS: PERCOCET 5MG/325MG TAB PO PRN (22:13)
[2018-04-07] MEDS: CARVedilol 3.125 MG TAB PO SCH ×4 (01:01→17:56)
[2018-04-07 06:00] VITALS: BP 115/69
[2018-04-07] MEDS: AMIODARONE 200 MG TAB (PACERONE) PO SCH ×2 (08:48→20:27)
[2018-04-07] MEDS: PANTOPRAZOLE 40MG TAB (PROTONIX) PO SCH (08:48)
[2018-04-07] MEDS: MULTIVITAMINS/MINERALS THERAP 1 TAB PO SCH (08:49)
[2018-04-07] MEDS: FLUoxetine 20 MG CAP PO SCH (08:49)
[2018-04-07] MEDS: TORSEMIDE 20 MG TAB PO SCH ×2 (08:49→20:27)
[2018-04-07] MEDS: PREGABALIN 100 MG CAP (LYRICA) PO SCH ×2 (08:49→20:27)
[2018-04-07] MEDS: FOLIC ACID 1 MG TAB PO SCH (08:49)
[2018-04-07] MEDS: SENOKOT S TAB PO SCH ×2 (08:49→20:27)
[2018-04-07] MEDS: NYSTATIN 100,000 UNITS/GM TOPICAL PWD 15 GM TOP SCH ×2 (08:50→20:28)
[2018-04-07] MEDS: EUCERIN 120GM CREAM TOP SCH ×2 (08:51→20:28)
[2018-04-07 10:25] LABS: CALCIUM LEVEL 8.6 MG/DL (8.8-10.2); CREATININE FOR GFR 2.03 MG/DL (0.70-1.30); GLOMERULAR FILTRATION RATE 35.7 (>49); POTASSIUM SERUM 3.6 MEQ/L (3.5-5.1)
[2018-04-07 13:06] VITALS: BP 124/76
--- NOTE | 2018-04-07 14:10 | IPN ---
DATE: 04/07/2018 Mr. Eng is seen this morning on his bedside. He is feeling well and denies any new problems. He was dialyzed yesterday which he tolerated very well. The patient had several questions about his kidney function and prognosis which were answered. He denies any nausea, vomiting, dyspnea or chest pain. He reports that his physical strength is improving and he is able to get up and sit at the edge of bed with assistance. He also has been getting out in his wheelchair. On physical exam temperature 97.3 degrees Fahrenheit, heart rate 75 per minute and respiratory rate 18 per minute. Blood pressure 142/72 mmHg and oxygen saturation 95% on room air. Intake and output records from yesterday showed total intake 900 and output 2050 out of which 1500 was removed with dialysis and urine output was only 550 mL. His head is atraumatic. Neck is supple and JVD is not elevated. Heart sounds are regular and lungs sound clear to auscultation. Abdomen is obese, soft and nontender. Extremities have no cyanosis or clubbing. Left lower leg is wrapped in Hema bandage. Neurologically he is at his baseline mentation. Today's labs show sodium level 135, potassium 3.6, CO2 29, BUN 29 and creatinine 2.03. PROBLEMS: 1. End-stage renal disease. The patient is known to have baseline stage IV of chronic kidney disease and developed acute renal failure due to prolonged hypotension and cardiac arrest. The patient required multiple pressors for several days even after resuscitation. His kidney function has improved only partially and he has been requiring dialysis. I have explained to him that there is still a chance that he might have further improvement and be able to come off dialysis at some point. He was last dialyzed yesterday and we will continue to monitor him closely. 2. Anemia. At present his anemia is stable and he should continue with Aranesp once a week during dialysis. DISPOSITION: The patient is likely to be discharged on Monday as he is going to halfway out of area for rehab. From renal a standpoint, he is stable for discharge.
[2018-04-07] MEDS: CALCIUM CARBONATE 500 MG CHEW U/D PO PRN (16:34)
[2018-04-07 17:50] VITALS: BP 124/73
[2018-04-07] MEDS: ATORVASTATIN 20 MG TAB PO SCH (20:26)
[2018-04-07] MEDS: traZODone 100 MG TAB PO SCH (20:27)
[2018-04-07] MEDS: PERCOCET 5MG/325MG TAB PO PRN (20:28)
[2018-04-08] MEDS: CARVedilol 3.125 MG TAB PO SCH ×4 (01:00→17:32)
[2018-04-08 06:00] VITALS: BP 121/72
[2018-04-08] MEDS: FLUoxetine 20 MG CAP PO SCH (09:25)
[2018-04-08] MEDS: PREGABALIN 100 MG CAP (LYRICA) PO SCH ×2 (09:26→20:17)
[2018-04-08] MEDS: FOLIC ACID 1 MG TAB PO SCH (09:26)
[2018-04-08] MEDS: PANTOPRAZOLE 40MG TAB (PROTONIX) PO SCH (09:26)
[2018-04-08] MEDS: SENOKOT S TAB PO SCH ×2 (09:26→20:17)
[2018-04-08] MEDS: TORSEMIDE 20 MG TAB PO SCH ×2 (09:26→20:17)
[2018-04-08] MEDS: MULTIVITAMINS/MINERALS THERAP 1 TAB PO SCH (09:26)
[2018-04-08] MEDS: AMIODARONE 200 MG TAB (PACERONE) PO SCH ×2 (09:27→20:17)
[2018-04-08] MEDS: EUCERIN 120GM CREAM TOP SCH ×2 (09:27→20:17)
[2018-04-08] MEDS: NYSTATIN 100,000 UNITS/GM TOPICAL PWD 15 GM TOP SCH ×2 (09:28→20:18)
[2018-04-08 09:35] LABS: CALCIUM LEVEL 8.4 MG/DL (8.8-10.2); CREATININE FOR GFR 2.67 MG/DL (0.70-1.30); POTASSIUM SERUM 3.3 MEQ/L (3.5-5.1)
[2018-04-08 11:44] VITALS: BP 112/66
[2018-04-08] MEDS ORDERED: PPD DOCUMENTATION ENTRY MISC XX ONE (12:00)
[2018-04-08] MEDS ORDERED: POTASSIUM CHLORIDE 10 MEQ SR TABLET PO ONE (13:30)
--- NOTE | 2018-04-08 14:10 | IPN ---
DATE OF SERVICE: 04/06/2018 SUBJECTIVE: Rocio is seen and examined this morning on hemodialysis receiving his maintenance treatment. I discussed with him that there is no sign of renal recovery and he continues to have interdialytic rise in creatinine. He is being set up for [facility] and outpatient hemodialysis placement. Vital signs: Temperature 98.1, pulse 81, respiratory rate 18, blood pressure 129/73, saturating 95% on room air. Intake yesterday was 720, goal dialysis removal today is 1500. Weight on the bed scale today is not recorded. General: Patient is seen on dialysis, awake, alert, oriented, morbidly obese, no acute distress. Extraocular muscles are intact. Tongue is moist. Jugular veins are not elevated. Right IJ tunneled hemodialysis catheter is in use. Heart sounds are regular. Lungs are clear to auscultation bilaterally. No crackles or rales. Abdomen is obese, soft and nontender. Left lower extremity is wrapped in dressings. Right lower extremity has trace edema. Neurologic: He is oriented and at baseline mentation. LABORATORY DATA: Sodium 133, potassium 3.4, creatinine 2.7, which is up from 2.2 yesterday. INPATIENT MEDICATIONS: Reviewed by myself and no change from prior. PROBLEMS: 1. Non-oliguric renal failure superimposed on chronic kidney disease (CKD) stage III. Renal failure was in the setting of cardiac arrest and shock. He is non-oliguric but he does remain dialysis dependent. Continues to have a brisk rise in interdialytic creatinine. Patient is aware that he continues to require hemodialysis and is being setup for outpatient hemodialysis chair. We will continue to watch him for signs of renal recovery. He is being dialyzed today with goal fluid removal of 1500 mL. I am also continuing him on oral diuretic of torsemide 20 mg by mouth twice a day. 2. Diastolic congestive heart failure. Volume status is acceptable. Goal fluid removal with dialysis today is 1.5 liters. Continue torsemide 20 mg by mouth twice a day as well and continue monitoring daily weights, which have been fairly stable. 3. Anemia related to chronic kidney disease. Hemoglobin has been stable but suboptimal in the 9s. He continues on weekly Aranesp. He has been receiving heparin free dialysis due to thrombocytopenia which has improved quite nicely over the course of this admission.
[2018-04-08 17:22] VITALS: BP 112/70
[2018-04-08] MEDS: ATORVASTATIN 20 MG TAB PO SCH (20:17)
[2018-04-08] MEDS: traZODone 100 MG TAB PO SCH (20:17)
[2018-04-09] MEDS: CARVedilol 3.125 MG TAB PO SCH ×4 (00:58→18:00)
[2018-04-09 06:00] VITALS: BP 123/80
[2018-04-09] MEDS: AMIODARONE 200 MG TAB (PACERONE) PO SCH ×2 (06:40→21:18)
[2018-04-09] MEDS: FOLIC ACID 1 MG TAB PO SCH (06:40)
[2018-04-09] MEDS: MULTIVITAMINS/MINERALS THERAP 1 TAB PO SCH (06:40)
[2018-04-09] MEDS: SENOKOT S TAB PO SCH ×2 (06:40→21:18)
[2018-04-09] MEDS: PREGABALIN 100 MG CAP (LYRICA) PO SCH ×2 (06:40→21:18)
[2018-04-09] MEDS: FLUoxetine 20 MG CAP PO SCH (06:41)
[2018-04-09] MEDS: PANTOPRAZOLE 40MG TAB (PROTONIX) PO SCH (06:41)
[2018-04-09] MEDS: TORSEMIDE 20 MG TAB PO SCH ×2 (06:41→21:18)
[2018-04-09] MEDS: EUCERIN 120GM CREAM TOP SCH ×2 (06:42→21:19)
[2018-04-09] MEDS: NYSTATIN 100,000 UNITS/GM TOPICAL PWD 15 GM TOP SCH ×2 (06:42→21:19)
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
[2018-04-09] MEDS ORDERED: PANT40TA3 PO (08:47)
[2018-04-09] MEDS ORDERED: ATOR1TAB21 PO (08:47)
[2018-04-09] MEDS ORDERED: FOLI1TAB11 PO (08:47)
[2018-04-09] MEDS ORDERED: CALC500C16 PO (08:47)
[2018-04-09] MEDS ORDERED: Docusate Sod/Senna PO (08:47)
[2018-04-09] MEDS ORDERED: AMIO200T PO (08:47)
[2018-04-09] MEDS ORDERED: TORS20TA2 PO (08:47)
[2018-04-09] MEDS ORDERED: TRAZ10TA PO (08:47)
[2018-04-09] MEDS ORDERED: GUAI5EL PO (08:47)
[2018-04-09] MEDS ORDERED: MYLASSUD PO (08:47)
[2018-04-09] MEDS ORDERED: MILK120011 PO (08:47)
[2018-04-09] MEDS ORDERED: PREG100CA PO (08:47)
[2018-04-09] MEDS ORDERED: NYAM10003 TOP (08:47)
[2018-04-09] MEDS ORDERED: CLOB05OI TOP (08:47)
[2018-04-09] MEDS ORDERED: EUCE12CR TOP (08:47)
[2018-04-09] MEDS ORDERED: CARV3.12 PO (08:47)
[2018-04-09] MEDS ORDERED: VITMTA PO (08:47)
[2018-04-09] MEDS ORDERED: PERCOCET PO (08:47)
[2018-04-09] MEDS ORDERED: DARB100SYR IV (08:47)
[2018-04-09] MEDS ORDERED: FLUO20CA19 PO (08:47)
[2018-04-09 10:04] LABS: CALCIUM LEVEL 8.7 MG/DL (8.8-10.2); CREATININE FOR GFR 2.87 MG/DL (0.70-1.30); POTASSIUM SERUM 3.5 MEQ/L (3.5-5.1)
[2018-04-09] MEDS: traZODone 100 MG TAB PO SCH (21:18)
[2018-04-09] MEDS: ATORVASTATIN 20 MG TAB PO SCH (21:18)
[2018-04-10] MEDS: CARVedilol 3.125 MG TAB PO SCH ×3 (01:04→12:21)
[2018-04-10 06:00] VITALS: BP 140/77
[2018-04-10 06:46] VITALS: BP 140/77
[2018-04-10 08:00] VITALS: BP 120/70
[2018-04-10 08:22] LABS: HEMATOCRIT 30.1 % (42.0-52.0); HEMOGLOBIN 9.7 g/dl (13.5-17.5); MEAN CORPUSCULAR HEMOGLOBIN 31.2 pg (27.0-33.0); MEAN CORPUSCULAR HGB CONC 32.2 g/dl (32.0-36.5); MEAN CORPUSCULAR VOLUME 96.8 fl (80.0-96.0); PLATELET COUNT, AUTOMATED 130 10^3/uL (150-450); RED BLOOD COUNT 3.11 10^6/uL (4.30-6.10); WHITE BLOOD COUNT 7.4 10^3/uL (4.0-10.0)
[2018-04-10 08:44] LABS: ALBUMIN 2.5 GM/DL (3.2-5.2); CALCIUM LEVEL 8.6 MG/DL (8.8-10.2); CREATININE FOR GFR 2.88 MG/DL (0.70-1.30); GLOMERULAR FILTRATION RATE 23.9 (>49); PHOSPHORUS LEVEL 3.8 MG/DL (2.5-4.9); POTASSIUM SERUM 3.5 MEQ/L (3.5-5.1)
--- NOTE | 2018-04-10 09:22 | IPNPDOC ---
Date Seen The patient was seen on 04/10/18. Progress Note SUBJECTIVE: Pt had no issues overnight, but discharge was postponed due to a request to check hep b surface antigen by outpt accepting facility. OBJECTIVE: PHYSICAL EXAMINATION VITAL SIGNS: Please see below. General: Lying in bed, no acute distress, comfortable, AAOx3, morbidly obese. HEENT: NC, AT CVS: RRR, +S1S2 Lungs: Does not appear to have any evidence of wheezing, rhonchi or rales Abdomen: Soft, nondistended, without tenderness and is morbidly obese Extremities: No significant edema, - Calf tenderness, just has been changed on left leg Skin: There is excoriations and stage 2 extending from back of the thighs to mid back. LABORATORY DATA: Please see below. ASSESSMENT AND PLAN: Patient is a 62 year old male with a PMHx of HTN, PAD, Venous stasis ulcers, Chronic L Leg ulceration (follows w/ Dr. Perera), Morbid obesity, Chronic back pain / Spinal cord injury (2001) / Wheelchair dependent, Depression who presented to the ER with L knee pain / L leg pain after he had fallen off of his wheelchair. Patient had an evaluation by Dr. Kwok (Orthopedic surgery) who recommended no intervention. Dr. Perera (Vascular surgery) was called on consultation. Patient was also found to have a urinary tract infection and was started on broad-spectrum antibiotics. On 02/19, patient experienced a cardiac arrest from hypoxemia and was found to be hypotensive. Patient was transferred to ICU after resuscitation. He was intubated and had a central line placed. Patient required pressor support and ventilatory support. Patient was treated for septic shock and possibly experie nced a cardiac event given his elevation in troponin, high suspicion for NSTEMI. Throughout intensive care stay patient's pressors were tapered off and patient was ultimately extubated on 02/23/2018. He was transferred to the service of hospitalist team on 02/24/2018. s/p Septic shock - likely 2/2 Skin & soft tissue infection and Urinary tract infection Critical illness myopathy - c/w PT / OT - to be discharged to rehab s/p Ventilator dependent respiratory failure hypoxic and Hypercapnic res piratory failure - Chronic hypercarbic respiratory / Obesity hypoventilation syndrome - Chronically elevated right hemidiaphragm - Has been successfully weaned off oxygen - s/p Corticosteroids Acute Non Oliguric renal failure on CKD3 - due to cardiac arrest and shock - Now requiring HD - He is non-oliguric but he does remain dialysis dependent. Continues to have a brisk rise in interdialytic creatinine. We will continue to watch for renal recovery. - continue torsemide 20 mg by mouth twice a day. Diastolic congestive heart failure. -Volume status is acceptable. Goal fluid removal with dialysis today is 1.5 liters. Continue torsemide 20 mg by mouth twice a day as well and continue monitoring daily weights, which have been fairly stable. Elevated troponin - likely 2/2 demand ischemia 2/2 septic shock; less likely 2/2 NSTEMI - Troponin have improved - s/p telemetry monitoring - c/w Carvedilol; Atorvastatin; No ASA (re: thrombocytopenia) s/p A. fib with RVR - rate / rhythm controlled with Amiodarone - Platelet count has improved now and stable consider starting anticoagulation - Cardiology on consultation Left lower extremity acute wound infection on chronic non-healing ulcers - Initially presented to the hospital because of left leg pain - Physical with chronic wound changes - s/p Leukocytosis ; Lactic acidosis improved - Blood cultures 02/18: No growth at 5 days - Wound culture 02/18: Polymicrobial (Pseudomonas, Klebsiella, Streptococcus group C, Corynebacterium species, MRSA) - s/p antibiotic therapy Chronic fracture of left leg - CT imaging noted - Orthopedic surgery on consult; appreciate their input; - Will have outpatient f/u with Vascular surgery - patient is a poor surgical candidate; will await resolution of acute illnesses before pursing further surgery s/p Urinary tract infection - 2/2 CAUTI - Urine culture 02/18: Citrobacter Amalonaticus #2 - s/p antibiotics s/p Pancytopenia - Flow cytometry of blood: Reactive lymphocyte subsets with no evidence of acute leukemia or non-Hodgkin lymphoma. - iron, b12, folate stores are adequate. - Has now resolved. Normocytic anemia - Hg appears stable - anemia of chronic disease, on darbepoetin, iron as per nephrology. - Will continue to monitor s/p Thrombocytopenia - Has had mild thrombocytopenia for 12 years off and on. - Now severe possibly 2/2 illness, possibly 2/2 anti-platelet therapy , recovering mild DIC - No bleeding episodes noted - HIT antibody workup negative - Will discontinue ASA - counts have now normalized - if recurs recommend follow up with hematology as then may need bone marrow biopsy for evaluation for MDS - May also need work up for celiac disease - Please see hematology consult. s/p Leukopenia - Hematology on consult; appreciate their input s/p Hypocalcemia s/p Electrolyte abnormalities s/p Elevated bilirubin - US abdomen 02/25: Cholelithiasis. Fatty infiltration of the liver. Multiple right renal cysts. s/p Transaminitis - likely 2/2 shocked liver 2/2 hypotension resolved Alcohol dependence - No withdrawal symptoms - c/w Thiamine, Folate, MVI Depression - c/w Fluoxetine GI prophylaxis - c/w Protonix DISCHARGE MEDICATIONS: Please see below. ALLERGIES: Please see below. VS, I&O, 24H, Fishbone Vital Signs/I&O Vital Signs Date Time Temp Pulse Resp B/P (MAP) Pulse Ox O2 Delivery O2 Flow Rate FiO2 04/10/18 08:00 97.6 74 18 120/70 (87) 96 I&O- Last 24 Hours up to 6 AM 04/10/18 06:00 Intake Total 1560 ml Output Total 1680 ml Balance -120 ml Laboratory Data 24H LABS Laboratory Tests 2 04/09/18 09:15: Anion Gap 7L, Glomerular Filtration Rate 24.0L, Blood Urea Nitrogen 56H, Creatinine 2.87H, Sodium Level 134L, Potassium Level 3.5, Chloride Level 98, Carbon Dioxide Level 29, Calcium Level 8.7L 04/09/18 15:36: Hepatitis B Surface Antigen NEGATIVE 04/10/18 07:45: Anion Gap 8, Glomerular Filtration Rate 23.9L, Blood Urea Nitrogen 69H, Creatinine 2.88H, Sodium Level 135L, Potassium Level 3.5, Chloride Level 98, Carbon Dioxide Level 29, Calcium Level 8.6L, Nucleated Red Blood Cells % (auto) 0.0, Phosphorus Level 3.8, Albumin 2.5L CBC/BMP Laboratory Tests 04/09/18 09:15 Calcium Level 8.7 L 04/10/18 07:45 Red Blood Count 3.11 L, Mean Corpuscular Volume 96.8 H, Mean Corpuscular Hemoglobin 31.2, Mean Corpuscular Hemoglobin Concent 32.2, Red Cell Distribution Width 16.5 H, Anion Gap 8 RYAN KRISHNA MD Apr 10, 2018 08:48
--- NOTE | 2018-04-10 09:23 | DS.PDOC ---
Discharge Summary General Date of Admission Feb 18, 2018 at 13:21 Date of Discharge 04/10/18 pls see previous discharge summary by Dr. Ramirez Discharge Summary Discharge was postponed on 04/09/18 due to request for hep b surface antigen by accepting medical facility. no issues overnight. pls refer to previous discharge summary by Dr. Ramirez. Vital Signs/I&Os Vital Signs Date Time Temp Pulse Resp B/P (MAP) Pulse Ox O2 Delivery O2 Flow Rate FiO2 04/10/18 08:00 97.6 74 18 120/70 (87) 96 I&O- Last 24 Hours up to 6 AM 04/10/18 06:00 Intake Total 1560 ml Output Total 1680 ml Balance -120 ml Laboratory Data Labs 24H Laboratory Tests 2 04/09/18 15:36: Hepatitis B Surface Antigen NEGATIVE 04/10/18 07:45: Nucleated Red Blood Cells % (auto) 0.0, Blood Urea Nitrogen 69H, Creatinine 2.88H, Sodium Level 135L, Potassium Level 3.5, Chloride Level 98, Carbon Dioxide Level 29, Anion Gap 8, Glomerular Filtration Rate 23.9L, Calcium Level 8.6L, Phosphorus Level 3.8, Albumin 2.5L CBC/BMP Laboratory Tests 04/10/18 07:45 Red Blood Count 3.11 L, Mean Corpuscular Volume 96.8 H, Mean Corpuscular Hemoglobin 31.2, Mean Corpuscular Hemoglobin Concent 32.2, Red Cell Distribution Width 16.5 H, Anion Gap 8 Discharge Medications Scheduled (Hydrocerin) 1 Cre Cre, 0 DOSE TOP BID Amiodarone HCl (Amiodarone HCl) 200 Mg Tab, 200 MG PO BID Atorvastatin Calcium (Atorvastatin Calcium) 20 Mg Tab, 40 MG PO QHS Carvedilol (Carvedilol) 3.125 Mg Tab, 3.125 MG PO Q6H Darbepoetin (Aranesp Albumin Free) 100 Mcg/0.5 Ml Inj, 200 MCG IV HD Fluoxetine Hcl (Fluoxetine HCl) 20 Mg Cap, 20 MG PO DAILY Folic Acid (Folic Acid) 1 Mg Tab, 1 MG PO DAILY Multivitamins *[facility] STOCKED* (Thera M Plus *[facility] STOCKED*) 1 Tab Tab, 1 TAB PO DAILY Nystatin (Nyamyc) 100,000 Unit/Gm Pow, 0 DOSE TOP BID Pantoprazole Sodium (Pantoprazole Sodium) 40 Mg Tab, 40 MG PO DAILY Pregabalin (Lyrica) 100 Mg Cap, 100 MG PO BID Torsemide (Torsemide) 20 Mg Tab, 20 MG PO Q12H Trazodone HCl (Trazodone HCl) 100 Mg Tab, 100 MG PO QHS [Docusate Sod/Senna] 1 TAB TAB, 1 TAB PO BID Scheduled PRN Aluminum/Magnesium/Simeth (Mag-Al Plus 200-200-20 mg/5Ml) 30 Ml Susp, 30 ML PO Q6HP PRN for HEARTBURN Calcium Carbonate (Calcium Carbonate) 500 Mg Chw, 1,000 MG PO TIDP PRN for HEARTBURN Clobetasol Propionate (Clobetasol Propionate) 0.05 % Oin, 1 DOSE TOP BID PRN for RASH Guaifenesin (Guaifenesin) 5 Ml Syrp, 15 ML PO Q8HP PRN for COUGH Milk Of Magnesia (Milk of Magnesia) 1,200 Mg/15 Ml Theresa, 30 ML PO DAILYPRN PRN for CONSTIPATION Oxycodone/Acetaminophen (Percocet 5MG/325MG Tablet) 1 Tab Tab, 1 TAB PO Q6HP PRN for MILD/MODERATE PAIN (PS 1-7) Allergies Coded Allergies: Vancomycin (Verified Allergy, Severe, CARDIAC ARREST, 02/27/18) ADDED PER INSTRUCTION FROM RYAN VIDALES MD Apr 10, 2018 09:23
--- NOTE | 2018-04-10 10:30 | IPN ---
DATE: 04/08/2018 Mr. Eng is seen this morning on his bedside. He is resting comfortably in his bed and there is no change in his condition. There is no dyspnea, chest pain, nausea, vomiting, diarrhea or abdominal pain. He has chronic lower extremity ulcer on the left leg; however edema has been under control with dialysis. He was last dialyzed on Monday. PHYSICAL EXAMINATION: Temperature 98.4 degrees Fahrenheit, heart rate 75 per minute and respiratory rate 18 per minute. Blood pressure 112/70 mmHg and oxygen saturation 94% on room air. Intake and output records from yesterday showed total output of urine only 300 mL. I believe intake is not recorded accurately. His head is atraumatic. His neck is supple and there is no jugular venous distention (JVD) or thyroid enlargement. Heart sounds regular and lungs clear to auscultation. Abdomen obese, soft and nontender and bowel sounds are present. Extremities have no cyanosis or clubbing. Left lower left leg is wrapped in an [place] bandage. Today's chemistry showed a sodium level 134, potassium 3.3, CO2 28, BUN 45 and creatinine 2.67. Glucose 118 and calcium is 8.4. PROBLEMS: 1. Acute renal failure superimposed on chronic kidney disease. The patient has known history of stage IV of chronic kidney disease at baseline. He had acute renal failure due to prolonged hypotension and multiple episodes of cardiac arrest. He was on pressors for several days following resuscitation. His urine output has moderately improved; however, his kidney function has not improved to the point where dialysis can be stopped. He is still dialysis dependent and was last dialyzed on Monday. There is a plan for discharge to residential for subacute rehab and I believe that he can be dialyzed any day next week. His volume status is well-compensated and electrolytes are normal. There is no emergent indication for dialysis today or tomorrow. 2. Hypokalemia. This is mild and most likely related to recent dialysis. I will let him eat a normal diet and recheck his electrolytes. No other intervention is indicated. 3. Anemia. His anemia has been stable; however, the last CBC was done on April 04. He can have another CBC tomorrow morning before discharge. DISPOSITION: From a renal standpoint, the patient can be discharged on Monday morning without any further dialysis. His dialysis can be scheduled on Monday or Monday. His renal function will need to be monitored for possible recovery of kidney function.
[2018-04-10] MEDS: SENOKOT S TAB PO SCH (10:44)
[2018-04-10] MEDS: PANTOPRAZOLE 40MG TAB (PROTONIX) PO SCH (10:44)
[2018-04-10] MEDS: PREGABALIN 100 MG CAP (LYRICA) PO SCH (10:44)
[2018-04-10] MEDS: AMIODARONE 200 MG TAB (PACERONE) PO SCH (10:44)
[2018-04-10] MEDS: MULTIVITAMINS/MINERALS THERAP 1 TAB PO SCH (10:44)
[2018-04-10] MEDS: TORSEMIDE 20 MG TAB PO SCH (10:45)
[2018-04-10] MEDS: FOLIC ACID 1 MG TAB PO SCH (10:45)
[2018-04-10] MEDS: FLUoxetine 20 MG CAP PO SCH (10:45)
[2018-04-10 12:00] VITALS: BP 120/71
--- NOTE | 2018-04-10 17:46 | IPN ---
DATE: 04/10/2018 Mr. Eng is seen this morning on his bedside. He is getting ready to be transferred to skilled nursing for rehabilitation. He is feeling well and denies any dyspnea, chest pain, nausea, or vomiting. He is still very weak and is going to require subacute rehabilitation. He was last dialyzed on Monday, 4 days ago, and since then he has decent urine output and has not required dialysis so far. PHYSICAL EXAMINATION: Temperature 97.6 degrees Fahrenheit, heart rate 74 per minute, respiratory rate 18 per minute, blood pressure 120/70 mm of mercury, and oxygen saturation 96% on room air. Intake and output records from yesterday showed total intake 1800 and output 1530 mL. This was first time that he has urine output greater than 1500 mL. The day before yesterday he had only 500, and on the he had only 300 mL urine output. His head is atraumatic. Neck is supple, and there is no jugular venous distention (JVD). Right-sided internal jugular vein Perm-A-Cath is intact. Heart sounds are regular and lungs with diminished breath sounds. Abdomen: Obese and nontender. Bowel sounds are normal. Extremities have no cyanosis or clubbing. Left lower extremity is wrapped in dressing. Neurologically, he is awake, alert, and oriented times three. Today's labs show WBC count 7.4, hemoglobin 9.7, hematocrit 30.1, platelets 130. Sodium is 135, potassium 3.5, chloride 98, CO2 of 29, BUN 69, and creatinine 2.88. Calcium level is 8.6 and phosphorus 3.8. PROBLEMS: 1. Acute renal failure superimposed on chronic kidney disease. The patient had a prolonged episode of acute renal failure due to acute tubular necrosis caused by prolonged hypotension following cardiac arrest. His kidney function seems to have improved to the point that he has not required dialysis for the last 4 days. I feel that he can go without dialysis at this point. I am going to leave his dialysis catheter in for at least one more week just in case he needs further dialysis. I feel that his catheter can be removed after 1 week. 2. Hypokalemia. His potassium level is borderline, and at this point I will let him eat a regular diet. His electrolytes should be monitored at least once a week along with his kidney function. 3. Congestive heart failure. Volume status seems reasonably well compensated, and he remains on torsemide 20 mg twice a day, which should be continued. 4. Anemia. He has been receiving Aranesp 200 mcg once a week with dialysis. If he does not require dialysis, then he can probably be treated with Procrit; however, his complete blood count (CBC) should be monitored at least once a week. 5. Hypertension. His blood pressure is very well controlled, and he is only on very low dose of antihypertensives. From a renal standpoint, the patient can be discharged to skilled nursing for rehabilitation. I feel that he will not require dialysis anymore; however, his kidney function needs to be monitored closely with at least once a week renal profile. He should followup with a hazmat technician as an outpatient. He will also need to see a vascular surgeon for removal of Perm-A-Cath if he does not require dialysis anymore.
--- NOTE | 2018-04-18 09:52 | REPIR ---
DATE OF PROCEDURE: 03/07/2018 ATTENDING SURGEON: Dr. Jakub Perera PAPERBOARD BOX MAKER: Tiffany Wilhelm and Theresa Mitchell. PREOPERATIVE DIAGNOSIS: Acute renal failure, dysfunctional right subclavian vein temporary hemodialysis catheter. POSTOPERATIVE DIAGNOSIS: Acute renal failure, dysfunctional right subclavian vein temporary hemodialysis catheter. PROCEDURE: Removal of right subclavian vein temporary hemodialysis catheter, ultrasound-guided right internal jugular vein 19 cm tipped cuff tunneled central venous catheter, fluoroscopic guided right internal jugular vein 19 cm tipped cuff tunneled central venous catheter using a GlidePath catheter. INDICATION: The patient is a 62-year-old male with acute on chronic renal failure who requires access for hemodialysis. The patient initially underwent placement of a temporary subclavian vein catheter, which is not functioning and will require removal and placement of a new catheter. Risks, benefits and alternative treatment options were discussed with the patient. ANESTHESIA: Local with 20 mL of 2% lidocaine. FLUOROSCOPY TIME: 0.2 minutes. CONTRAST: None. COMPLICATIONS: None. DRAINS: None. SPECIMENS: None. IMPLANTS: Right internal jugular vein tunneled central venous catheter with use of a 19 cm tip to cuff GlidePath catheter. DESCRIPTION OF PROCEDURE: The patient was taken to the angiography suite, placed supine on the angiography room table and then prepped and draped in a standard surgical fashion. The right subclavian vein temporary catheter was removed and manual compression applied for hemostasis, which was achieved. Ultrasound was then used to guide cannulation of the right internal jugular vein with a micropuncture needle. The micropuncture wire was advanced to the micropuncture needle, which was upsized to a micropuncture sheath. The right internal jugular vein was sequentially dilated under fluoroscopic guidance and an introducer sheath positioned. The catheter, which had been tunneled through the right chest puncture wound, was brought out at the right internal jugular puncture wound and advanced through the introducer sheath and positioned with the tip in the superior vena cava right atrial junction under fluoroscopic guidance. The introducer sheath was removed. Both ports were aspirated, noted to aspirate easily and then flushed with heparinized saline. The catheter was secured to the anterior chest wall using #2-0 Prolene suture. The puncture wound in the right neck was closed using #3-0 Monocryl in inverted interrupted fashion. Dressings were applied. The patient tolerated the procedure well. All instrument, sponge and needle counts were correct at the end the case. There were no complications. Dr. Perera was present for and directed the entire case. The patient was transferred to the floor in stable condition. The tunneled central venous right internal jugular vein catheter was stable for use for hemodialysis access.
== END 2018-04-10 14:45 | DRG 698 ==
LOC: M ED 05:07 → M ED INP 13:21 → M PCU 16:28 → M ICU 02-19 05:03 → M PCU 02-26 13:49 → M MSPAV 03-09 12:28 → M MS5PR 03-19 16:20
PROVIDERS: ADMIT Internal Medicine; ATTEND Internal Medicine Nephrology
PROC: 02HV33Z Insertion of Infusion Device into Superior Vena Cava, Percutaneous Approach (ICD-10-PCS; 2018-02-19)
PROC: 5A1945Z Respiratory Ventilation, 24-96 Consecutive Hours (ICD-10-PCS; 2018-02-19)
PROC: 0BH17EZ Insertion of Endotracheal Airway into Trachea, Via Natural or Artificial Opening (ICD-10-PCS; 2018-02-19)
PROC: 02HV33Z Insertion of Infusion Device into Superior Vena Cava, Percutaneous Approach (ICD-10-PCS; 2018-02-22)
PROC: 5A1D70Z Performance of Urinary Filtration, Intermittent, Less than 6 Hours Per Day (ICD-10-PCS; 2018-02-23)
PROC: 05H533Z Insertion of Infusion Device into Right Subclavian Vein, Percutaneous Approach (ICD-10-PCS; 2018-02-28)
PROC: 05PY33Z Removal of Infusion Device from Upper Vein, Percutaneous Approach (ICD-10-PCS; 2018-03-07)
PROC: 02HV33Z Insertion of Infusion Device into Superior Vena Cava, Percutaneous Approach (ICD-10-PCS; 2018-03-07)
PROC: 0JH63XZ Insertion of Tunneled Vascular Access Device into Chest Subcutaneous Tissue and Fascia, Percutaneous Approach (ICD-10-PCS; 2018-03-07)
PROC: 30233N1 Transfusion of Nonautologous Red Blood Cells into Peripheral Vein, Percutaneous Approach (ICD-10-PCS; principal; 2018-03-14)
DX: T83.511A Infection and inflammatory reaction due to indwelling urethral catheter, initial encounter (principal); I46.9 Cardiac arrest, cause unspecified; A41.9 Sepsis, unspecified organism; R65.21 Severe sepsis with septic shock; J96.22 Acute and chronic respiratory failure with hypercapnia; K72.00 Acute and subacute hepatic failure without coma; N17.0 Acute kidney failure with tubular necrosis; N18.6 End stage renal disease; L97.929 Non-pressure chronic ulcer of unspecified part of left lower leg with unspecified severity; Z68.43 Body mass index [BMI] 50.0-59.9, adult; M25.061 Hemarthrosis, right knee; E87.2 Acidosis; L03.116 Cellulitis of left lower limb; E66.2 Morbid (severe) obesity with alveolar hypoventilation; G72.81 Critical illness myopathy; I24.8 Other forms of acute ischemic heart disease; D61.818 Other pancytopenia; I13.2 Hypertensive heart and chronic kidney disease with heart failure and with stage 5 chronic kidney disease, or end stage renal disease; I50.32 Chronic diastolic (congestive) heart failure; S72.402P Unspecified fracture of lower end of left femur, subsequent encounter for closed fracture with malunion; D63.1 Anemia in chronic kidney disease; Z66 Do not resuscitate; E87.5 Hyperkalemia; E83.51 Hypocalcemia; D69.6 Thrombocytopenia, unspecified; N39.0 Urinary tract infection, site not specified; F32.9 Major depressive disorder, single episode, unspecified; F10.20 Alcohol dependence, uncomplicated; Z99.3 Dependence on wheelchair; I87.2 Venous insufficiency (chronic) (peripheral); Y84.6 Urinary catheterization as the cause of abnormal reaction of the patient, or of later complication, without mention of misadventure at the time of the procedure; I73.9 Peripheral vascular disease, unspecified; Z79.899 Other long term (current) drug therapy; Z88.8 Allergy status to other drugs, medicaments and biological substances; I48.91 Unspecified atrial fibrillation; Z99.2 Dependence on renal dialysis

== ENCOUNTER 2018-08-03 15:27 | Inpatient (IN) | payer MEDICARE, MEDICAID ==
[~2018-08-03] VITALS: Ht 188 cm; Wt 152.7 kg
[~2018-08-03 15:27] MED LIST changes: -/BACL20TA OR; -/ESOM40CA; -/FENT50PA; -/FENT50PA TD; -/MOXI40TA; -/ONDA4TA OR; -/PANT40TA; -/PANT40TA OR; -/TAMS4CA; +AMIO200T PO; +ATOR1TAB21 PO; +AVEL1TAB2; +BACL1TAB9 OR; +CALC500C16 PO; +CARV3.12 PO; +CLOB05OI TOP; +DARB100SYR IV; +Docusate Sod/Senna PO; -ENOX40SY SC; +FENT1DIS15; +FENT1DIS15 TD; +FLOM0.4C39; +FLUO20CA19 PO; +GUAI5EL PO; +HYDR-3715 PO; +HYDR1CRE95 TOP; +LOVE1INJ SC; +MILK120011 PO; +MYLASSUD PO; +NEXI1CAP3; -NORCOTAB PO; +NYAM10003 TOP; +NYST-15 TOP; -NYST10PW TOP; -OMEP20CA3 PO; +OMEP20CA4 PO; +ONDA-1 OR; +PANT40TA3 PO; +PROT1TAB2; +PROT1TAB2 OR; -SENE8.6T; -SENN1TAB2 PO; +SENN1TAB38; +SENN1TAB40 PO; +TOPR50TA PO; -TOPR50TA23 PO; +TORS20TA2 PO; +TRAZ-163 PO; +TRAZ10TA PO; +ZOLP5TAB PO
[2018-08-03] MEDS ORDERED: CARV3.12 PO (18:30)
[2018-08-03] MEDS ORDERED: FLUO20CA19 PO (18:30)
[2018-08-03] MEDS ORDERED: MIRA3350 PO (18:30)
[2018-08-03] MEDS ORDERED: TRAZ-163 PO (18:30)
[2018-08-03] MEDS ORDERED: OMEP-218 PO (18:30)
[2018-08-03] MEDS ORDERED: SEVE800T3 PO (18:30)
[2018-08-03] MEDS ORDERED: METO50TA7 PO (18:30)
[2018-08-03] MEDS ORDERED: TORS20TA2 PO (18:30)
[2018-08-03 18:35] LABS: BASO # 0.1 10^3/uL (0.0-0.2); BASO % 0.5 % (0.0-1.0); EOS # 0.3 10^3/uL (0.0-0.50); EOS % 2.3 % (0.0-3.0); HEMATOCRIT 33.7 % (42.0-52.0); HEMOGLOBIN 10.6 g/dl (13.5-17.5); LYMPH # 2.3 10^3/uL (1.5-4.5); MEAN CORPUSCULAR HEMOGLOBIN 31.8 pg (27.0-33.0); MEAN CORPUSCULAR HGB CONC 31.5 g/dl (32.0-36.5); MEAN CORPUSCULAR VOLUME 101.2 fl (80.0-96.0); MONO # 0.9 10^3/uL (0.0-0.8); MONO % 7.8 % (0.0-5.0); NEUTROPHILS # 7.4 10^3/uL (1.8-7.7); NEUTROPHILS % 67.9 % (36.0-66.0); PLATELET COUNT, AUTOMATED 172 10^3/uL (150-450); RED BLOOD COUNT 3.33 10^6/uL (4.30-6.10); WHITE BLOOD COUNT 10.9 10^3/uL (4.0-10.0)
[2018-08-03] MEDS ORDERED: SENN1TAB36 PO (18:40)
[2018-08-03] MEDS ORDERED: PREG100CA PO (18:40)
--- NOTE | 2018-08-03 18:46 | REP ---
CHEST, PORTABLE: Two AP portable views of the chest are performed and compared to prior study of 03/15/2018. I see no acute infiltrate. There is elevation of the right hemidiaphragm unchanged. Heart does not appear to be significantly enlarged. The mediastinal silhouette is unchanged. There is mild calcification of the thoracic aorta. Right central venous catheter is again noted. IMPRESSION: No acute infiltrate. Electronically Signed by Ilan Hoover MD 08/03/2018 07:50 P
[2018-08-03] MEDS ORDERED: NOTE (18:48)
[2018-08-03 19:14] LABS: ALBUMIN 2.6 GM/DL (3.2-5.2); BILIRUBIN,DIRECT 0.2 MG/DL (0.0-0.2); BILIRUBIN,TOTAL 0.4 MG/DL (0.2-1.0); CALCIUM LEVEL 7.4 MG/DL (8.8-10.2); CREATININE FOR GFR 2.85 MG/DL (0.70-1.30); GLOMERULAR FILTRATION RATE 24.1 (>49); TOTAL PROTEIN 7.4 GM/DL (6.4-8.2)
[2018-08-03] MEDS ORDERED: POTASSIUM CHLORIDE 10 MEQ SR TABLET PO ONE (19:30)
[2018-08-03 20:35] VITALS: BP 143/63
--- NOTE | 2018-08-03 20:57 | HPE ---
DATE OF ADMISSION: 08/03/2018 CHIEF COMPLAINT: General weakness. HISTORY OF THE PRESENT ILLNESS: The patient is a 63-year-old white male with multiple chronic medical conditions, including end-stage renal disease - on dialysis, came to the emergency room (ER) due to general weakness. History is provided by himself as well as by review of chart. Patient has end-stage renal disease and started hemodialysis from February of 2018. Dr. Lovell is his billet heater. He is living at home by himself, and he is very weak, he cannot stay at home because he needs a lot of help, and he needs short-term rehabilitation. However, the rehab facility in [place] does not have ability to do hemodialysis, so Dr. Lovell sent the patient here for admission to see whether can stop dialysis and then will decide whether he can stay locally in the rehab facility or if we need to send to other rehab facility with capacity for hemodialysis. Otherwise, he does not have any complaints. REVIEW OF SYSTEMS: Denies fever. No chills. No headache. No blurred vision. No shortness of breath. No chest pain. No abdominal pain. No nausea, no vomiting, no diarrhea. All other systems were reviewed but negative. PAST MEDICAL HISTORY: 1. End-stage renal disease, on hemodialysis since February 2018. 2. Hypertension. 3. Peripheral vascular disease. 4. Coronary artery disease, status post myocardial infarction ([place]). 5. Bilateral venous stasis, ulcer left lower extremity. 7. Morbid obesity. PAST SURGICAL HISTORY: 1. Hernia repair. 2. Skin graft. ALLERGIES: Allergic to VANCOMYCIN. SOCIAL HISTORY: Denies tobacco use. He drinks about six beers a day. No illicit drug abuse. He never , and he lives by himself. He is a F[employer]. FAMILY HISTORY: Both parents . No family history of end-stage renal disease. MEDICATIONS: Reviewed. PHYSICAL EXAMINATION: VITAL SIGNS: Temperature 98.2 and heart rate 70, respiratory rate 18, blood pressure 149/75, oxygen saturation 95% on room air. GENERAL: He is awake, alert, oriented times three. He is not in acute distress. He is morbidly obese. HEENT: Atraumatic. Pupils equal, round and react to light. No jaundice. Extraocular muscles intact. Ears, nose and throat normal. Mouth: Mucosa a little dry. NECK: No jugular venous distention (JVD), no bruits. LUNGS: Clear. No wheezing, no crackles. HEART; S1, S2, regular. No murmur. ABDOMEN: Soft. Bowel sounds positive, nontender. LOWER EXTREMITIES: No edema in bilateral lower extremities, and he does have venous stasis bilaterally. Also, his left lower extremity was wrapped, which was not examined. SKIN: No rash. PSYCHOLOGIC: No acute psychosis. NEUROLOGIC: Nonfocal. DIAGNOSTIC AND LAB STUDIES: CBC and differential showed WBC 10.9, hemoglobin and hematocrit 11 over 34, platelets 172. Sodium 136, potassium 3.0, BUN 17, creatinine 2.8, glucose 102. IMPRESSION: 1. General weakness. 2. End-stage renal disease, on hemodialysis. 3. Hypertension. 4. Coronary artery disease. 5. Peripheral vascular disease. 6. Bilateral venous stasis, ulcer left lower extremity. 7. Morbid obesity. PLAN: The patient will be admitted to medical-surgical floor and will continue his home medications. Dr. Lovell will consult tomorrow. He also has hypokalemia, which will be supplemented.
[2018-08-03] MEDS: traZODone 100 MG TAB PO SCH (21:02)
[2018-08-03] MEDS: SENOKOT S TAB PO SCH (21:02)
[2018-08-03] MEDS: METOPROLOL TART 50 MG TAB PO SCH (21:03)
[2018-08-04 05:48] LABS: HEMATOCRIT 31.1 % (42.0-52.0); HEMOGLOBIN 9.7 g/dl (13.5-17.5); MEAN CORPUSCULAR HEMOGLOBIN 30.6 pg (27.0-33.0); MEAN CORPUSCULAR HGB CONC 31.2 g/dl (32.0-36.5); MEAN CORPUSCULAR VOLUME 98.1 fl (80.0-96.0); PLATELET COUNT, AUTOMATED 151 10^3/uL (150-450); RED BLOOD COUNT 3.17 10^6/uL (4.30-6.10); WHITE BLOOD COUNT 9.6 10^3/uL (4.0-10.0)
--- NOTE | 2018-08-04 05:55 | ECGEPIP ---
[facility] - ED Test Date: 2018-08-03 Pat Name: BARBRA WILLIS Department: Room: - Gender: Male [employer] Consultant: robert : [id number] Requested By: Alexis Worthy Order Number: [id number] Reading MD: Hasmukh Mendez Measurements Intervals [place] Rate: 63 P: 30 DC: 179 QRS: QRSD: 120 T: 72 QT: 466 QTc: 477 Interpretive Statements SINUS RHYTHM LEFT AXIS DEVIATION MODERATE INTRAVENTRICULAR CONDUCTION DELAY ST DEVIATION AND MODERATE T-WAVE ABNORMALITY, CONSIDER ANTERIOR ISCHEMIA SIMILAR TO 03/02/18 Electronically Signed on 08-04-2018 5:54:49 EDT by Hasmukh Mendez
[2018-08-04 06:00] VITALS: BP_SYST 12; BP_SYST 120; BP_DIAS 60
[2018-08-04 06:13] LABS: CALCIUM LEVEL 7.4 MG/DL (8.8-10.2); CREATININE FOR GFR 3.14 MG/DL (0.70-1.30); GLOMERULAR FILTRATION RATE 21.5 (>49)
[2018-08-04] MEDS: SENOKOT S TAB PO SCH ×2 (08:37→19:33)
[2018-08-04] MEDS: OMEPRAZOLE 20 MG CAP PO SCH (08:37)
[2018-08-04] MEDS: TORSEMIDE 20 MG TAB PO SCH ×2 (08:37→17:11)
[2018-08-04] MEDS: (RENVELA) SEVELAMER **CARBONate** 800 MG TAB PO SCH ×3 (08:37→17:11)
[2018-08-04] MEDS: FLUoxetine 20 MG CAP PO SCH (08:37)
[2018-08-04] MEDS: METOPROLOL TART 50 MG TAB PO SCH ×2 (08:39→19:33)
[2018-08-04] MEDS ORDERED: PREGABALIN 100 MG CAP (LYRICA) PO SCH (09:00)
--- NOTE | 2018-08-04 09:48 | IPNPDOC ---
Date Seen The patient was seen on 08/04/18. Progress Note SUBJECTIVE: "I don't walk" c/o generalized weakness. denies sob, cough, n/v/abd pain/constipation, fever or chills. awaiting physical therapy evaluation. PHYSICAL EXAMINATION: VITAL SIGNS: PLS SEE BELOW GENERAL: He is awake, alert, oriented times three. He is not in acute distress. He is morbidly obese. HEENT: Atraumatic. Pupils equal, round and react to light. No jaundice. Extraocular muscles intact. Ears, nose and throat normal. Mouth: Mucosa a little dry. NECK: No jugular venous distention (JVD), no bruits. LUNGS: Clear. No wheezing, no crackles. HEART; S1, S2, regular. No murmur. ABDOMEN: Soft. Bowel sounds positive, nontender. LOWER EXTREMITIES: No edema in bilateral lower extremities, and he does have venous stasis bilaterally. Also, his left lower extremity was wrapped, which was not examined. SKIN: No rash. PSYCHOLOGIC: No acute psychosis. NEUROLOGIC: Nonfocal. LABORATORY DATA, IMAGING STUDIES, MICROBIOLOGY: PLS SEE BELOW ASSESSMENT AND PLAN: The patient is a 63-year-old white male with multiple chronic medical conditions, including end-stage renal disease - on dialysis, came to the emergency room (ER) due to general weakness. History is provided by himself as well as by review of chart. Patient has end-stage renal disease and started hemodialysis from February of 2018. Dr. Lovell is his mri manager. He is living at home by himself, and he is very weak, he cannot stay at home because he needs a lot of help, and he needs short-term rehabilitation. However, the rehab facility in [place] does not have ability to do hemodialysis, so Dr. Lovell sent the patient here for admission to see whether can stop dialysis and then will decide whether he can stay locally in the rehab facility or if we need to send to other rehab facility with capacity for hemodialysis. Otherwise, he does not have any complaints. General weakness. admitted to medical-surgical floor continued on home meds pt consulted End-stage renal disease, on hemodialysis. nephrology consulted for dialysis needs on renvela and torsemide Hypertension. continued on home meds metoprolol Coronary artery disease. continued on home meds on metoprolol, torsemide Peripheral vascular disease. continued on home meds Bilateral venous stasis, ulcer left lower extremity. continued on home meds torsemide Morbid obesity. chronic hypokalemia, supplemented. depression continued home dose of prozac constipation/bowel regimen on senokot and miralax gerd on prilosec insomnia trazodone diet: renal disposition: aru screen, pt consulted VS, I&O, 24H, Fishbone Vital Signs/I&O Vital Signs Date Time Temp Pulse Resp B/P (MAP) Pulse Ox O2 Delivery O2 Flow Rate FiO2 08/04/18 06:00 97.3 60 20 120/60 (80) 99 08/03/18 20:16 Room Air I&O- Last 24 Hours up to 6 AM 08/04/18 06:00 Intake Total 600 ml Output Total 75 ml Balance 525 ml Laboratory Data 24H LABS Laboratory Tests 2 08/03/18 18:19: Immature Granulocyte % (Auto) 0.5, White Blood Count 10.9H, Red Blood Count 3.33L, Hemoglobin 10.6L, Hematocrit 33.7L, Mean Corpuscular Volume 101.2H, Mean Corpuscular Hemoglobin 31.8, Mean Corpuscular Hemoglobin Concent 31.5L, Red Cell Distribution Width 17.4H, Platelet Count 172, Neutrophils (%) (Auto) 67.9H, Lymphocytes (%) (Auto) 21.0L, Monocytes (%) (Auto) 7.8H, Eosinophils (%) (Auto) 2.3, Basophils (%) (Auto) 0.5, Neutrophils # (Auto) 7.4, Lymphocytes # (Auto) 2.3, Monocytes # (Auto) 0.9H, Eosinophils # (Auto) 0.3, Basophils # (Auto) 0.1, Nucleated Red Blood Cells % (auto) 0.0, Anion Gap 5L, Glomerular Filtration Rate 24.1L, Calcium Level 7.4L, Magnesium Level 2.0, Aspartate Amino Transf (AST/SGOT) 19, Alanine Aminotransferase (ALT/SGPT) 14, Alkaline Phosphatase 119H, Total Bilirubin 0.4, Direct Bilirubin 0.2, Total Protein 7.4, Albumin 2.6L, Albumin/Globulin Ratio 0.54L 08/03/18 18:20: POC Glucose (Misc Panel) 110H, POC Sodium (Misc Panel) 136, POC Potassium (Misc Panel) 2.8*L, POC Chloride (Misc Panel) 94L, POC Total CO2 (Misc Panel) 30.0H, POC Blood Urea Nitrogen (Misc Panel 16, POC Ionized Calcium (Misc Panel) 4.2L, POC Creatinine (Misc Panel) 3.2H, POC Hematocrit (Misc Panel) 32.0L 08/04/18 05:17: Nucleated Red Blood Cells % (auto) 0.0, Anion Gap 6L, Glomerular Filtration Rate 21.5L, Calcium Level 7.4L, Blood Urea Nitrogen 21H, Creatinine 3.14H, Sodium Level 133L, Potassium Level 3.0L, Chloride Level 96L, Carbon Dioxide Level 31 08/04/18 05:41: Urine Color KEVIN, Urine Appearance TURBIDH, Urine pH 5.0, Urine Specific [place] 1.014, Urine Protein 2+H, Urine Glucose (UA) NEGATIVE, Urine Ketones NEGATIVE, Urine Blood 1+H, Urine Nitrite NEGATIVE, Urine Bilirubin NEGATIVE, Urine Urobilinogen 2.0H, Urine Leukocyte Esterase 3+H, Urine WBC (Auto) TNTCH, Urine RBC (Auto) 38H, Urine Hyaline Casts (Auto) 23, Urine Bacteria (Auto) 3+H, Urine Squamous Epithelial Cells 8, Urine Sperm (Auto) CBC/BMP Laboratory Tests 08/03/18 18:19 Red Blood Count 3.33 L, Mean Corpuscular Volume 101.2 H, Mean Corpuscular Hemoglobin 31.8, Mean Corpuscular Hemoglobin Concent 31.5 L, Red Cell Distribution Width 17.4 H, Neutrophils (%) (Auto) 67.9 H, Lymphocytes (%) (Auto) 21.0 L, Monocytes (%) (Auto) 7.8 H, Eosinophils (%) (Auto) 2.3, Basophils (%) (Auto) 0.5, Neutrophils # (Auto) 7.4, Lymphocytes # (Auto) 2.3, Monocytes # (A uto) 0.9 H, Eosinophils # (Auto) 0.3, Basophils # (Auto) 0.1 08/04/18 05:17 Red Blood Count 3.17 L, Mean Corpuscular Volume 98.1 H, Mean Corpuscular Hemoglobin 30.6, Mean Corpuscular Hemoglobin Concent 31.2 L, Red Cell Distribution Width 17.2 H, Calcium Level 7.4 L Microbiology Microbiology 08/04/18 Urine Culture, Received Pending RYAN KRISHNA MD Aug 04, 2018 08:00
[2018-08-04 14:00] VITALS: BP 113/60
[2018-08-04] MEDS ORDERED: POTASSIUM CHLORIDE 10 MEQ SR TABLET PO ONE (19:15)
[2018-08-04] MEDS: NYSTATIN 100,000 UNITS/GM TOPICAL PWD 15 GM TOP SCH (19:33)
[2018-08-04] MEDS: traZODone 100 MG TAB PO SCH (19:33)
[2018-08-04] MEDS: PREGABALIN 100 MG CAP (LYRICA) PO SCH (20:08)
[2018-08-04 22:00] VITALS: BP 123/61
[2018-08-05 06:00] VITALS: BP 118/56
[2018-08-05] MEDS: OMEPRAZOLE 20 MG CAP PO SCH (09:06)
[2018-08-05] MEDS: TORSEMIDE 20 MG TAB PO SCH ×2 (09:06→17:58)
[2018-08-05] MEDS: PREGABALIN 100 MG CAP (LYRICA) PO SCH ×2 (09:06→19:21)
[2018-08-05] MEDS: SENOKOT S TAB PO SCH ×2 (09:06→19:21)
[2018-08-05] MEDS: (RENVELA) SEVELAMER **CARBONate** 800 MG TAB PO SCH ×3 (09:06→17:59)
[2018-08-05] MEDS: FLUoxetine 20 MG CAP PO SCH (09:07)
[2018-08-05] MEDS: NYSTATIN 100,000 UNITS/GM TOPICAL PWD 15 GM TOP SCH ×2 (09:07→19:24)
[2018-08-05] MEDS: METOPROLOL TART 50 MG TAB PO SCH ×2 (09:07→19:22)
--- NOTE | 2018-08-05 10:51 | IPNPDOC ---
Date Seen The patient was seen on 08/05/18. Progress Note SUBJECTIVE: Pt requesting rehab in [place], [place] , but would need a ceramic tile installer and a dialysis seat. "It's the same people that run the [place] re[facility]." still c/o generalized weakness. denies sob, cough, n/v/abd pain/constipation, fever or chills. no new issues overnight. at baseline, he says he can transfer using a board to his wheelchair without assistance. PHYSICAL EXAMINATION: VITAL SIGNS: PLS SEE BELOW GENERAL: He is awake, alert, oriented times three. He is not in acute distress. He is morbidly obese. HEENT: Atraumatic. Pupils equal, round and react to light. No jaundice. Extraocular muscles intact. Ears, nose and throat normal. Mouth: Mucosa a little dry. NECK: No jugular venous distention (JVD), no bruits. LUNGS: Clear. No wheezing, no crackles. HEART; S1, S2, regular. No murmur. ABDOMEN: Soft. Bowel sounds positive, nontender. LOWER EXTREMITIES: No edema in bilateral lower extremities, and he does have venous stasis bilaterally. Also, his left lower extremity was wrapped, which was not examined. SKIN: No rash. PSYCHOLOGIC: No acute psychosis. NEUROLOGIC: Nonfocal. LABORATORY DATA, IMAGING STUDIES, MICROBIOLOGY: PLS SEE BELOW ASSESSMENT AND PLAN: The patient is a 63-year-old white male with multiple chronic medical conditions, including end-stage renal disease - on dialysis, came to the emergency room (ER) due to general weakness. History is provided by himself as well as by review of chart. Patient has end-stage renal disease and started hemodialysis from February of 2018. Dr. Lovell is his ceramic tile installer. He is living at home by himself, and he is very weak, he cannot stay at home because he needs a lot of help, and he needs short-term rehabilitation. However, the rehab facility in [place] does not have ability to do hemodialysis, so Dr. Lovell sent the patient here for admission to see whether can stop dialysis and then will decide whether he can stay locally in the rehab facility or if we need to send to other rehab facility with capacity for hemodialysis. Otherwise, he does not have any complaints. General weakness. admitted to medical-surgical floor continued on home meds pt consulted End-stage renal disease, on hemodialysis. nephrology consulted for dialysis needs on renvela and torsemide Hypertension. continued on home meds metoprolol Coronary artery disease. continued on home meds on metoprolol, torsemide Peripheral vascular disease. continued on home meds Bilateral venous stasis, ulcer left lower extremity. continued on home meds torsemide Morbid obesity. chronic hypokalemia, supplemented. depression continued home dose of prozac constipation/bowel regimen on senokot and miralax gerd on prilosec insomnia trazodone diet: renal disposition: aru screen, pt consulted VS, I&O, 24H, Fishbone Vital Signs/I&O Vital Signs Date Time Temp Pulse Resp B/P (MAP) Pulse Ox O2 Delivery O2 Flow Rate FiO2 08/05/18 06:00 96.8 66 19 118/56 (76) 93 08/03/18 20:16 Room Air I&O- Last 24 Hours up to 6 AM 08/05/18 06:00 Intake Total 1657 ml Output Total 1025 ml Balance 632 ml Laboratory Data 24H LABS Laboratory Tests 2 08/05/18 05:32: Iron Level 32L, Total Iron Binding Capacity 128L, Transferrin % Saturation 25.0, Ferritin 258 Microbiology Microbiology 08/04/18 Urine Culture, Received Pending RYAN KRISHNA MD Aug 05, 2018 06:58
[2018-08-05 13:06] LABS: CALCIUM LEVEL 7.4 MG/DL (8.8-10.2); CREATININE FOR GFR 3.52 MG/DL (0.70-1.30); GLOMERULAR FILTRATION RATE 18.9 (>49); POTASSIUM SERUM 3.8 MEQ/L (3.5-5.1)
--- NOTE | 2018-08-05 13:25 | CR ---
DATE OF CONSULTATION: 08/04/2018 REQUESTING PHYSICIAN: Dr. Pam Terry CONSULTING PHYSICIAN: Dr. Turcios REASON FOR CONSULTATION: Management of end-stage renal disease on hemodialysis. CHIEF COMPLAINT: The patient was admitted to the hospital with generalized weakness. HISTORY OF PRESENT ILLNESS: Mr. Eng is a 63-year-old male with a past medical history of morbid obesity, end-stage renal disease on hemodialysis every Monday, and Monday. He was admitted to the hospital yesterday with generalized weakness. He is unable to walk. He has history of fracture in his knee. He is admitted under the hospitalist service and pending short-term rehabilitation placement but the patient reports that his urine output is improving. The patient thinks that he probably would not need any more dialysis and today is the patient's regular day of dialysis anyway so nephrology service was called for further help in the management of this patient's renal failure. I saw and evaluated the patient today morning. The patient is afebrile, hemodynamically stable. He is laying in the bed. Denies any active complaints. PAST MEDICAL HISTORY: Past medical history of acute renal failure requiring dialysis since February 2018. He is getting Monday, and Monday dialysis, history of hypertension, morbid obesity, peripheral vascular disease, coronary artery disease, history of myocardial infarction in the past, chronically bedridden. PAST SURGICAL HISTORY: Status post hernia repair surgery, history of her skin graft surgery. ALLERGIES: The patient is allergic to VANCOMYCIN. FAMILY HISTORY: No significant family history of end-stage renal disease requiring hemodialysis. SOCIAL HISTORY: The patient denies any illicit drug abuse. He drinks about six beers a day. He is unable to perform activities of daily life. REVIEW OF SYSTEMS CONSTITUTIONAL: He denies any fevers and chills. EYES: He denies any blurry vision, double vision. ENT: Denies any state dysphagia, odynophagia, ear discharge. Cardiovascular: He denies any chest pain or palpitation. Respiratory: He denies any shortness of breath or wheezing. Gastrointestinal: He denies any nausea, vomiting. Genitourinary: He denies any dysuria or hematuria. Musculoskeletal: He reports an inability to walk and history of fracture in the knees. Central nervous system (HAIRSPRING STUDDER): He denies any strokes or seizures. Psychiatric: He denies any depression or anxiety. Endocrine: He denies any history of diabetes. Hematology/Oncology: He denies any easy bleeding or bruising. All other review of systems are negative. PHYSICAL EXAMINATION: General: The patient is awake, alert, oriented times three, laying in bed in no apparent distress. Head and neck exam: Extraocular muscles intact. Pupils equally round and reactive to light. Mucous membranes are moist. Neck is supple. There is no jugular venous distention (JVD). Cardiovascular: S1, S2. Regular rate. 1+ edema of the bilateral lower extremities. Respiratory: Chest is clear to auscultation bilaterally. Bilateral equal air entry. No rales or rhonchi. Abdomen is morbidly obese, soft, nontender. No organomegaly. Musculoskeletal: Decreased range of movement of lower extremities. The patient is unable to walk. 1+ edema of the bilateral lower extremities. HAIRSPRING STUDDER: No focal deficit of the bilateral upper extremities. He is able to move upper extremities. Psychiatric: Normal mood and affect. LABORATORY DATA: CBC showed WBC of 9.6, hemoglobin 9.7, platelets of 151. BMP showed sodium 133, potassium 3, chloride 96, bicarbonate 31, BUN 21, creatinine is 3.1, calcium is 7.4. Microbiology: Urine culture is pending. IMAGING STUDIES: Chest x-ray was done yesterday showed, which showed no acute infiltrate. CURRENT INPATIENT MEDICATIONS: The patient is on: - Colace 1 tablet twice a day - Prozac 20 mg daily - metoprolol 50 mg p.o. twice a day - omeprazole 20 mg daily - potassium chloride 40 mEq one dose was given today morning - Lyrica 100 mg p.o. twice a day - Renvela 800 mg p.o. with meals - torsemide 20 mg p.o. twice a day - trazodone 100 mg p.o. at night ASSESSMENT/PLAN: 1. End-stage renal disease requiring hemodialysis. The patient reports that his urine output is improving. The patient reports last time he was discharged from the hospital and sent to [place] he was not on dialysis. He claims his urine output increases 2 days after dialysis. I am going to hold off his dialysis today. I would start his 24-hour urine collection tomorrow morning. It will end on Monday morning. I will order 24-hour urine creatinine clearance. If it is close to 20, I might hold off further dialysis and keep his volume status optimized with diuretics only. 2. Anemia and renal failure. Hemoglobin is 9.7, which is suboptimal. I am going to check his iron levels as well. If his iron levels are low, the patient will be given IV iron. Otherwise, I will start him on JOHN 3. Hyponatremia. It is likely hypervolemic hyponatremia. I would continue current dose of torsemide 20 mg p.o. twice a day. If needed, dose will be increased but for the time being while he is getting 24-hour urine collection I would not change his diuretics. 4. Hypokalemia. The patient already got a dose of potassium chloride 40 mEq p.o. times one dose. 5. Hypertension along with chronic kidney disease, blood pressure is optimized. Continue current dose of metoprolol 50 mg p.o. twice a day. 6. Generalized weakness. The patient is bedridden and he cannot walk. He has venous ulcers on the legs as well. Management is as per primary team. The patient is pending placement to rehabilitation. Thank you for involving me in the care of this patient. I shall be happy to follow the patient along with you tomorrow morning.
[2018-08-05 14:00] VITALS: BP 115/64
[2018-08-05] MEDS: traZODone 100 MG TAB PO SCH (19:21)
[2018-08-05] MEDS ORDERED: IRON SUCROSE 100MG 5ML VIAL (J1756 PER 1MG) IV SCH (20:45)
[2018-08-05 22:00] VITALS: BP 124/56
[2018-08-06 06:00] VITALS: BP 121/59
[2018-08-06 06:05] LABS: BASO % 0.4 % (0.0-1.0); EOS # 0.3 10^3/uL (0.0-0.50); EOS % 3.8 % (0.0-3.0); HEMATOCRIT 26.2 % (42.0-52.0); HEMOGLOBIN 8.5 g/dl (13.5-17.5); LYMPH # 1.9 10^3/uL (1.5-4.5); LYMPH % 25.3 % (24.0-44.0); MEAN CORPUSCULAR HEMOGLOBIN 30.7 pg (27.0-33.0); MEAN CORPUSCULAR HGB CONC 32.4 g/dl (32.0-36.5); MEAN CORPUSCULAR VOLUME 94.6 fl (80.0-96.0); MONO # 0.5 10^3/uL (0.0-0.8); MONO % 7.2 % (0.0-5.0); NEUTROPHILS # 4.6 10^3/uL (1.8-7.7); NEUTROPHILS % 62.8 % (36.0-66.0); PLATELET COUNT, AUTOMATED 117 10^3/uL (150-450); RED BLOOD COUNT 2.77 10^6/uL (4.30-6.10); WHITE BLOOD COUNT 7.3 10^3/uL (4.0-10.0)
[2018-08-06 06:35] LABS: CALCIUM LEVEL 7.3 MG/DL (8.8-10.2); CREATININE FOR GFR 3.23 MG/DL (0.70-1.30); GLOMERULAR FILTRATION RATE 20.8 (>49); PHOSPHORUS LEVEL 3.7 MG/DL (2.5-4.9); POTASSIUM SERUM 3.7 MEQ/L (3.5-5.1)
[2018-08-06 06:41] LABS: CREATININE, SERUM 3.2 MG/DL (0.6-1.3)
[2018-08-06 06:59] LABS: CREATININE 24 HOUR, URINE 941.4 MG/24HR (950-2500); CREATININE CLEARANCE, URINE 20.4 ML/MIN (85-125); CREATININE, URINE 52.3 MG/DL
[2018-08-06] MEDS: SENOKOT S TAB PO SCH ×2 (08:43→21:12)
[2018-08-06] MEDS: (RENVELA) SEVELAMER **CARBONate** 800 MG TAB PO SCH ×3 (08:43→18:28)
[2018-08-06] MEDS: FLUoxetine 20 MG CAP PO SCH (08:43)
[2018-08-06] MEDS: TORSEMIDE 20 MG TAB PO SCH ×2 (08:43→18:28)
[2018-08-06] MEDS: METOPROLOL TART 50 MG TAB PO SCH ×2 (08:43→21:11)
[2018-08-06] MEDS: PREGABALIN 100 MG CAP (LYRICA) PO SCH ×2 (08:43→21:11)
[2018-08-06] MEDS: OMEPRAZOLE 20 MG CAP PO SCH (08:43)
[2018-08-06] MEDS: NYSTATIN 100,000 UNITS/GM TOPICAL PWD 15 GM TOP SCH ×2 (08:44→21:12)
[2018-08-06] MEDS ORDERED: DARBEPOETIN 100 MCG/0.5 ML *DIALYSIS* SYRINGE (J0882) SC SCH (09:00)
--- NOTE | 2018-08-06 11:33 | IPNPDOC ---
Date Seen The patient was seen on 08/06/18. Progress Note SUBJECTIVE: pt c/o diarrhea last night, and another episode this am, left thigh wound bandage was removed to clean him. pt is requesting this to be bandaged wound care consulted. unable to transfer unassisted requiring one person assistance. klebsiella in urine cx on levaquin. denies fever or flank pain c/o urgency PHYSICAL EXAMINATION: VITAL SIGNS: PLS SEE BELOW GENERAL: He is awake, alert, oriented times three. He is not in acute distress. He is morbidly obese. HEENT: Atraumatic. Pupils equal, round and react to light. No jaundice. Extraocular muscles intact. Ears, nose and throat normal. Mouth: Mucosa a little dry. NECK: No jugular venous distention (JVD), no bruits. LUNGS: Clear. No wheezing, no crackles. HEART; S1, S2, regular. No murmur. ABDOMEN: Soft. Bowel sounds positive, nontender. LOWER EXTREMITIES: No edema in bilateral lower extremities, and he does have venous stasis bilaterally. Also, his left lower extremity ulcer with surrounding erythema, serosanguinous drainage. PSYCHOLOGIC: No acute psychosis. NEUROLOGIC: Nonfocal. LABORATORY DATA, IMAGING STUDIES, MICROBIOLOGY: PLS SEE BELOW ASSESSMENT AND PLAN: The patient is a 63-year-old white male with multiple chronic medical conditions, including end-stage renal disease - on dialysis, came to the emergency room (ER) due to general weakness. History is provided by himself as well as by review of chart. Patient has end-stage renal disease and started hemodialysis from February of 2018. Dr. Lovell is his benefits specialist recruiter. He is living at home by himself, and he is very weak, he cannot stay at home because he needs a lot of help, and he needs short-term rehabilitation. However, the rehab facility in [place] does not have ability to do hemodialysis, so Dr. Lovell sent the patient here for admission to see whether can stop dialysis and then will decide whether he can stay locally in the rehab facility or if we need to send to other rehab facility with capacity for hemodialysis. Otherwise, he does not have any complaints. General weakness. admitted to medical-surgical floor continued on home meds pt consulted End-stage renal disease, on hemodialysis. nephrology consulted for dialysis needs on renvela and torsemide Hypertension. continued on home meds metoprolol Coronary artery disease. continued on home meds on metoprolol, torsemide Peripheral vascular disease. continued on home meds klebsiella uti on levaquin Left LE ulcer wound care consulted. turn and re-position q2hrs. 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 continued on home meds torsemide Morbid obesity. chronic hypokalemia, supplemented. depression continued home dose of prozac constipation/bowel regimen on senokot and miralax gerd on prilosec insomnia trazodone diet: renal disposition: aru screen, pt consulted VS, I&O, 24H, Fishbone Vital Signs/I&O Vital Signs Date Time Temp Pulse Resp B/P (MAP) Pulse Ox O2 Delivery O2 Flow Rate FiO2 08/06/18 08:43 77 105/63 08/06/18 06:00 96.5 16 96 08/03/18 20:16 Room Air I&O- Last 24 Hours up to 6 AM 08/06/18 06:00 Intake Total 2110 ml Output Total 2050 ml Balance 60 ml Laboratory Data 24H LABS Laboratory Tests 2 08/06/18 05:25: Immature Granulocyte % (Auto) 0.5, White Blood Count 7.3, Red Blood Count 2.77L, Hemoglobin 8.5L, Hematocrit 26.2L, Mean Corpuscular Volume 94.6, Mean Corpuscular Hemoglobin 30.7, Mean Corpuscular Hemoglobin Concent 32.4, Red Cell Distribution Width 15.9H, Platelet Count 117L, Neutrophils (%) (Auto) 62.8, Lymphocytes (%) (Auto) 25.3, Monocytes (%) (Auto) 7.2H, Eosinophils (%) (Auto) 3.8H, Basophils (%) (Auto) 0.4, Neutrophils # (Auto) 4.6, Lymphocytes # (Auto) 1.9, Monocytes # (Auto) 0.5, Eosinophils # (Auto) 0.3, Basophils # (Auto) 0.0, Nucleated Red Blood Cells % (auto) 0.0, Blood Urea Nitrogen 43H, Creatinine 3.23H, Sodium Level 129L, Potassium Level 3.7, Chloride Level 96L, Carbon Dioxide Level 27, Anion Gap 6L, Glomerular Filtration Rate 20.8L, Calcium Level 7.3L, Phosphorus Level 3.7, Albumin 2.0#L 08/06/18 06:00: Urine Total Volume 1800, Urine Creatinine 52.3, Urine Creatinine 24 Hour 941.4L, Creatinine Clearance 20.4L CBC/BMP Laboratory Tests 08/06/18 05:25 Red Blood Count 2.77 L, Mean Corpuscular Volume 94.6, Mean Corpuscular Hemoglobin 30.7, Mean Corpuscular Hemoglobin Concent 32.4, Red Cell Distribution Width 15.9 H, Neutrophils (%) (Auto) 62.8, Lymphocytes (%) (Auto) 25.3, Monocytes (%) (Auto) 7.2 H, Eosinophils (%) (Auto) 3.8 H, Basophils (%) (Auto) 0.4, Neutrophils # (Auto) 4.6, Lymphocytes # (Auto) 1.9, Monocytes # (Auto) 0.5, Eosinophils # (Auto) 0.3, Basophils # (Auto) 0.0, Anion Gap 6 L 08/06/18 06:00 Microbiology Microbiology 08/04/18 Urine Culture - Final, Complete Klebsiella Pneumoniae RYAN KRISHNA MD Aug 06, 2018 08:57
[2018-08-06] MEDS: cefTRIAXone SOD 1 GM in D5W MINI-BAG PLUS 50 ML IV SCH (11:44)
--- NOTE | 2018-08-06 11:48 | IPN ---
DATE OF SERVICE: 08/05/2018 SUBJECTIVE: The patient was seen and examined at the bedside today morning. He has a Anderson catheter now, and he is getting collection of the 24-hour urine starting from today morning 6 a.m. He did not get his regular scheduled dialysis yesterday because he is getting 24-hour urine creatinine clearance now. He otherwise denies any active complaints at this point. OBJECTIVE: Vital signs: Temperature is 97.3 degrees Fahrenheit, blood pressure 115/64, pulse is 71, respiratory of 90, saturating 94% on room air. Intake and output: Urine output recorded as 12 mL so far today since overnight. Weight in the bed scale is not available. PHYSICAL EXAM: General: The patient is awake, alert, oriented times three, morbidly obese, laying in bed, no apparent distress. Head and neck exam: Extraocular muscles intact. Pupils equally round and reactive to light. Mucous membranes are moist. Neck is supple. He has a right internal jugular (IJ) tunneled hemodialysis catheter. Cardiovascular: S1, S2, regular rate, 1+ edema of the bilateral lower extremities. Respiratory: Chest is clear to auscultation bilaterally. Bilateral equal air entry. No rales or rhonchi. Abdomen: Soft, obese, positive bowel sounds. Nontender. No organomegaly. Musculoskeletal: Decreased range of movement of the lower extremities. Patient is bedridden. QUALITY FACILITATOR: No focal deficit. Power is 5/5 in bilateral upper extremities. Psychiatric: Normal mood and affect. LAB REVIEW: CBC showed a WBC of 9.6 and a hemoglobin 9.7 that is from yesterday. BMP done today morning showed sodium 133, potassium 3.8, chloride 99, bicarbonate 29, BUN 33, creatinine is 3.5, it was 3.1 yesterday, calcium is 7.4, iron 32, TIBC is 128, transferrin saturation is 25, ferritin is 258. CURRENT INPATIENT MEDICATIONS: Patient's medications were all reviewed by me. There is no change in the medications today as compared with yesterday. ASSESSMENT AND PLAN: 1. End-stage renal disease requiring hemodialysis. Patient skipped his dialysis yesterday to check his residual renal function. He is getting 24-hour urine creatinine clearance which will be finished tomorrow morning, and depending upon the creatinine clearance, it would be decided if patient needs to continue dialysis. However, given his rise in creatinine between dialysis sessions and a GFR of 18 today labs, I believe it will be very difficult to take this patient off of dialysis. 2. Anemia in renal failure. The patient's iron levels are low. I have started the patient on Venofer. He will get it with dialysis if we start the dialysis, otherwise, he will get infusions while he is in the hospital. 3. Hypokalemia. Potassium level is improved since potassium supplementation. Continue to monitor for now. 4. Lower extremity edema. Continue current dose of torsemide 20 mg by mouth twice a day. 5. Generalized weakness. Patient is chronically bedridden. Patient is pending placement at the acute rehabilitation.
[2018-08-06] MEDS: IRON SUCROSE 200 MG in NS 100 ML IV SCH (12:46)
[2018-08-06] MEDS: POTASSIUM CHLORIDE 10 MEQ SR TABLET PO SCH (12:47)
[2018-08-06 14:00] VITALS: BP 112/57
[2018-08-06] MEDS: traZODone 100 MG TAB PO SCH (21:11)
[2018-08-06 22:00] VITALS: BP 109/56
--- NOTE | 2018-08-06 22:41 | IPN ---
DATE: 08/06/2018 The patient has an indwelling Anderson catheter. Urine culture came back positive for Klebsiella pneumoniae. He finished a 24-hour urine creatinine clearance today, morning, as well, which came back at around 20 mL per minute. The patient has not been dialyzed since last , which is 4 days ago. His hemoglobin dropped today to 8.5. Patient otherwise denies any leg swelling, edema, or shortness of breath. OBJECTIVE: VITAL SIGNS: Temperature is 96.5 degrees Fahrenheit, blood pressure 121/59, pulse is 61, respiratory rate of 16, saturating 96% on room air. INTAKE/OUTPUT: Urine output recorded as 1.7 liters yesterday, 500 mL so far today since overnight. Weight on the bed scale is 152.7 kg. PHYSICAL EXAMINATION: GENERAL: The patient is awake, alert, oriented times three, morbidly obese, laying in bed, in no apparent distress. HEAD AND NECK EXAM: Extraocular muscles intact. Pupils equally round and reactive to light. Mucous membranes are moist. Neck is supple. He has a right internal jugular (IJ) tunneled hemodialysis catheter. CARDIOVASCULAR: S1, S2, regular rate. 1+ edema of the bilateral lower extremities. RESPIRATORY: Chest is clear to auscultation bilaterally. Bilateral equal air entry. No rales or rhonchi. ABDOMEN: Abdomen is soft, obese, positive bowel sounds, nontender. No organomegaly. MUSCULOSKELETAL: Decreased range of movement of the lower extremities. He is bedridden. 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 Power is 5/5 in bilateral upper extremities. LAB REVIEW: CBC showed a WBC of 7.3, hemoglobin is 8.5, platelets are 117. 24-hour urine volume is 1.8 liters, 24-hour urine creatinine is 941 and creatinine clearance is 20.4 mL per minute. BMP done today, morning, showed sodium 129, potassium 3.7, chloride 97, bicarbonate 27, BUN 43, creatinine is 3.2, calcium is 7.3, albumin is 2. Microbiology: Urine clean catch culture came back positive for Klebsiella pneumoniae. CURRENT INPATIENT MEDICATIONS: The patient's medications were all reviewed by me. I have started the patient on ceftriaxone 1 gram IV daily for urinary tract infection. I have started him on Venofer 200 mg IV every 48 hours for iron deficiency anemia. He was also given a dose of Aranesp 200 mcg subcu today, morning. I have increased his torsemide dose to 40 mg by mouth twice a day, and I have started him on potassium chloride 20 mEq by mouth daily. ASSESSMENT AND PLAN: 1. Renal failure requiring dialysis. Patient has not been dialyzed for the last 4 days. He got 24-hour urine creatinine clearance done, which is 20 mL per minute. Although the numbers correspond to chronic kidney disease stage IV but he is very close to requiring dialysis again, given that his sodium is going down, his hemoglobin is dropping, his BUN levels are going up. I would hold dialysis for two more days and check his renal function again. I strongly believe given this patient's morbid obesity and volume status, he will still need to continue dialysis for optimization of his volume. No dialysis will be done today for now. 2. Lower extremity edema. I have increased the torsemide dose to 40 mg by mouth twice a day, and I have started him on potassium chloride 20 mEq by mouth daily. 3. Anemia in renal failure and iron deficiency. Patient was given a dose of Aranesp 200 mcg subcu today, and I have started him on IV Venofer as well. 4. Hyponatremia. Patient has hypervolemic hyponatremia. Torsemide dose has been increased, and sodium level is expected to improve with that. 5. Generalized weakness. Patient is chronically bedridden. He is pending placement at acute rehab unit. 6. Klebsiella urinary tract infection. Patient has an indwelling Anderson catheter at this time. I started the patient on ceftriaxone for Klebsiella UTI.
[2018-08-07 06:00] VITALS: BP 105/55
[2018-08-07 06:12] LABS: BASO % 0.3 % (0.0-1.0); EOS # 0.3 10^3/uL (0.0-0.50); EOS % 3.3 % (0.0-3.0); HEMATOCRIT 26.8 % (42.0-52.0); HEMOGLOBIN 8.8 g/dl (13.5-17.5); LYMPH # 1.7 10^3/uL (1.5-4.5); LYMPH % 19.3 % (24.0-44.0); MEAN CORPUSCULAR HEMOGLOBIN 30.9 pg (27.0-33.0); MEAN CORPUSCULAR HGB CONC 32.8 g/dl (32.0-36.5); MONO # 0.5 10^3/uL (0.0-0.8); MONO % 6.1 % (0.0-5.0); NEUTROPHILS # 6.1 10^3/uL (1.8-7.7); NEUTROPHILS % 70.5 % (36.0-66.0); PLATELET COUNT, AUTOMATED 131 10^3/uL (150-450); RED BLOOD COUNT 2.85 10^6/uL (4.30-6.10); WHITE BLOOD COUNT 8.7 10^3/uL (4.0-10.0)
[2018-08-07 06:36] LABS: ALBUMIN 2.1 GM/DL (3.2-5.2); CALCIUM LEVEL 7.1 MG/DL (8.8-10.2); CREATININE FOR GFR 3.18 MG/DL (0.70-1.30); GLOMERULAR FILTRATION RATE 21.2 (>49); PHOSPHORUS LEVEL 4.3 MG/DL (2.5-4.9); POTASSIUM SERUM 3.7 MEQ/L (3.5-5.1)
[2018-08-07] MEDS: SENOKOT S TAB PO SCH ×2 (09:00→20:17)
[2018-08-07] MEDS: PREGABALIN 100 MG CAP (LYRICA) PO SCH ×2 (09:01→20:18)
[2018-08-07] MEDS: OMEPRAZOLE 20 MG CAP PO SCH (09:01)
[2018-08-07] MEDS: (RENVELA) SEVELAMER **CARBONate** 800 MG TAB PO SCH ×3 (09:01→17:22)
[2018-08-07] MEDS: FLUoxetine 20 MG CAP PO SCH (09:01)
[2018-08-07] MEDS: POTASSIUM CHLORIDE 10 MEQ SR TABLET PO SCH (09:02)
[2018-08-07] MEDS: TORSEMIDE 20 MG TAB PO SCH ×2 (09:02→17:22)
[2018-08-07] MEDS: METOPROLOL TART 50 MG TAB PO SCH ×2 (09:02→20:18)
[2018-08-07] MEDS: NYSTATIN 100,000 UNITS/GM TOPICAL PWD 15 GM TOP SCH ×2 (09:03→20:18)
[2018-08-07] MEDS: cefTRIAXone SOD 1 GM in D5W MINI-BAG PLUS 50 ML IV SCH (09:43)
[2018-08-07 14:00] VITALS: BP 120/58
--- NOTE | 2018-08-07 19:00 | IPNPDOC ---
Subjective Date Seen The patient was seen on 08/07/18. Subjective Chief Complaint/HPI daily follow up. The patient still feels very weak. He used to take care of ADL's at home, including preparing meals and going to the bathroom, but currently, he is not able to move well due to physical deconditioning. Continue to work with PT. Denies any urinary symptoms. General: Reports: Fatigue, Malaise Constitutional: Denies: Chills, Fever, Malaise, Night Sweats, Weakness, Fatigue, Weight Loss, Lethargy, Other Eyes: Denies: Pain, Vision change, Conjunctivae inflammation, Eyelid inflammation, Redness, Other ENT: Denies: Head Aches, Ear Pain, Dysphagia, Sinus Congestion, Post Nasal Drip, Sore Throat, Epistaxis, Other Symptoms Skin: Denies: Rash, Lesions, Jaundice, Bruising, Itching, Dry, Breakdown, Nail Changes, Other Pulmonary: Denies: Dyspnea, Cough, Pleuritic Chest Pain, Other Symptoms Cardiovascular: Denies: Chest Pain, Palpitations, Orthopnea, Paroxysmal Noc. Dyspnea, Edema, Lt Headedness, Other Symptoms Gastrointestinal: Denies: Nausea, Vomiting, Abdominal Pain, Diarrhea, Constipation, Melena, Hematochezia, Other Symptoms Genitourinary: Denies: Dysuria, Frequency, Incontinence, Hematuria, Retention, Other Symptoms Hematologic: Denies: Bruising, Bleeding Excessively, Petecchia, Purpura, Enlarged Lymph Nodes, Other Hematologic Endocrine: Denies: Polydipsia, Polyphagia, Polyuria, Heat Intolerance, Cold Intolerance, Other Endocrine Sx Musculoskeletal: Denies: Neck Pain, Back Pain, Shoulder Pain, Arm Pain, Hand Pain, Leg Pain, Foot Pain, Joint Pain, Muscle Pain, Spasms, Other Symptoms Neurological: Denies: Weakness, Numbness, Incoordination, Change in speech, Confusion, Seizures, Other Symptoms Psych: Denies: Mood Normal, Anxiety, Depression, Memory Issues, Thoughts of Self Harm, Anger, Thoughts of Harming Other, Other Psych Objective Physical Examination General Exam: Positive: Alert Eye Exam: Positive: Conjunctiva & lids normal ENT Exam: Positive: Atraumatic, Mucous membr. moist/pink Neck Exam: Positive: Supple Chest Exam: Positive: Clear to auscultation, Normal air movement Heart Exam: Positive: Rate Normal Telemetry: Positive: No significant arrhythmia Abdomen Exam: Positive: Normal bowel sounds Extremity Exam: Positive: Other (no edema) Skin Exam: Positive: Nl turgor and temperature Neuro Exam: Positive: Normal Speech Psych Exam: Positive: Mood NL Assessment /Plan Problems (1) CKD (chronic kidney disease), stage III Status: Chronic Problem Text: # General weakness and UTI - The patient has electrolyte imbalance and UTI. - Continue levaquin. - Continue to work with PT. PT recommends rehab. # End-stage renal disease, on hemodialysis. - Nephrology consulted for dialysis needs - on renvela and torsemide. Electrolytes have improved. # Hypertension, CAD, PAD - Continue on home meds metoprolol - Cont. torsemide, cont. home meds # Left LE ulcer - wound care consulted. 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 - continued on home meds torsemide # Morbid obesity. - chronic # Hypokalemia - Repleted. # depression - continued home dose of prozac # constipation/bowel regimen - on senokot and miralax # insomnia - trazodone Plan/VTE VTE Prophylaxis Ordered?: Yes (heparin) VS, I&O, 24H, Fishbone Vital Signs/I&O Vital Signs Date Time Temp Pulse Resp B/P (MAP) Pulse Ox O2 Delivery O2 Flow Rate FiO2 08/07/18 14:00 99.0 71 18 120/58 (78) 96 08/03/18 20:16 Room Air I&O- Last 24 Hours up to 6 AM 08/07/18 06:00 Intake Total 840 ml Output Total 2650 ml Balance -1810 ml Laboratory Data 24H LABS Laboratory Tests 2 08/07/18 05:28: Immature Granulocyte % (Auto) 0.5, White Blood Count 8.7, Red Blood Count 2.85L, Hemoglobin 8.8L, Hematocrit 26.8L, Mean Corpuscular Volume 94.0, Mean Corpuscular Hemoglobin 30.9, Mean Corpuscular Hemoglobin Concent 32.8, Red Cell Distribution Width 15.8H, Platelet Count 131L, Neutrophils (%) (Auto) 70.5H, Lymphocytes (%) (Auto) 19.3L, Monocytes (%) (Auto) 6.1H, Eosinophils (%) (Auto) 3.3H, Basophils (%) (Auto) 0.3, Neutrophils # (Auto) 6.1, Lymphocytes # (Auto) 1.7, Monocytes # (Auto) 0.5, Eosinophils # (Auto) 0.3, Basophils # (Auto) 0.0, Nucleated Red Blood Cells % (auto) 0.0, Blood Urea Nitrogen 54H, Creatinine 3.18H, Sodium Level 134L, Potassium Level 3.7, Chloride Level 98, Carbon Dioxide Level 28, Anion Gap 8, Glomerular Filtration Rate 21.2L, Calcium Level 7.1L, Phosphorus Level 4.3, Albumin 2.1L CBC/BMP Laboratory Tests 08/07/18 05:28 Red Blood Count 2.85 L, Mean Corpuscular Volume 94.0, Mean Corpuscular Hemoglobin 30.9, Mean Corpuscular Hemoglobin Concent 32.8, Red Cell Distribution Width 15.8 H, Neutrophils (%) (Auto) 70.5 H, Lymphocytes (%) (Auto) 19.3 L, Monocytes (%) (Auto) 6.1 H, Eosinophils (%) (Auto) 3.3 H, Basophils (%) (Auto) 0.3, Neutrophils # (Auto) 6.1, Lymphocytes # (Auto) 1.7, Monocytes # (Auto) 0.5, Eosinophils # (Auto) 0.3, Basophils # (Auto) 0.0, Anion Gap 8 Microbiology Microbiology 08/04/18 Urine Culture - Final, Complete Klebsiella Pneumoniae OFE ELISE MD Aug 07, 2018 18:59
[2018-08-07] MEDS: HEPARIN SOD (PORCINE) 5000 UNITS/ML VIAL SQ SCH (20:17)
[2018-08-07] MEDS: traZODone 100 MG TAB PO SCH (20:18)
--- NOTE | 2018-08-07 21:08 | IPN ---
DATE: 08/07/2018 SUBJECTIVE: The patient was seen and examined at the bedside today morning. He is afebrile, hemodynamically stable. He continues to have a good urine output. His diuretic dose was increased yesterday. His renal function is stable. Creatinine is at 3.1. Hemoglobin is slightly better today as compared with yesterday. OBJECTIVE: VITAL SIGNS: Temperature is 99 degrees Fahrenheit, blood pressure 120/58, pulse is 71, respiratory rate of 18, saturating 96% on room air. INTAKE AND OUTPUT: Urine output recorded is 2.7 liters yesterday, 2.2 liters so far today since overnight. Weight in the bed scale was 152.7 kg. PHYSICAL EXAMINATION: GENERAL: The patient is morbidly obese, laying in bed. No apparent distress. Wearing nasal cannula. HEAD AND NECK EXAM: Extraocular muscles intact. Pupils equally round and reactive to light. Mucous membranes are moist. Neck is supple. She has a right IJ tunneled hemodialysis catheter. CARDIOVASCULAR: S1, S2, regular rate. 1+ edema of the left lower extremity, no edema of the right lower extremity. RESPIRATORY: Chest is clear to auscultation bilaterally. Bilateral equal air entry. No rales or rhonchi. ABDOMEN: Soft, obese, positive bowel sounds. Nontender. No organomegaly. MUSCULOSKELETAL: Decreased range of movement of the bilateral lower extremities. 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 Power is 5/5 in bilateral upper extremities. LABORATORY REVIEW: CBC showed WBC of 8.7, hemoglobin 8.8, platelets are 131. BMP showed sodium 134, potassium 3.7, chloride 98, bicarbonate 28, BUN 54, creatinine is 3.1, calcium 7.1, phosphorous 4.3, albumin 2.1. CURRENT INPATIENT MEDICATIONS: The patient's medications were all reviewed by me. The patient continues to receive Venofer 200 mg IV every 48 hours. He was started on Rocephin yesterday. He also got a dose of Aranesp yesterday. His dose of torsemide was increased to 40 mg by mouth twice a day yesterday. ASSESSMENT/PLAN: 1. Recent renal failure requiring dialysis. The patient's last dialysis was about 5 days ago. His GFR has been stable at around 20. He is currently getting diuretics only. Continue to monitor off of diuretics at this time. If his renal function stays stable then his right IJ tunneled catheter will be removed by the end of the week. However, given his morbid obesity and gradually rising BUN level, I believe that this patient will likely need dialysis at least twice a week. 2. Lower extremity edema. Edema is being optimized with torsemide 40 mg by mouth twice a day. Continue current dose of potassium chloride. 3. Anemia with renal failure and iron deficiency. Continue Venofer. He was given a dose of Aranesp. Hemoglobin is improving. No need of Aranesp administration. 4. Hyponatremia. The patient has hypervolemic hyponatremia. Sodium is improving with higher dose of diuretic. 5. Klebsiella urinary tract infection. Continue current dose of ceftriaxone.
[2018-08-07 22:00] VITALS: BP 119/58
[2018-08-08 06:00] VITALS: BP 120/58
[2018-08-08 06:29] LABS: HEMATOCRIT 25.5 % (42.0-52.0); HEMOGLOBIN 8.5 g/dl (13.5-17.5); MEAN CORPUSCULAR HEMOGLOBIN 31.6 pg (27.0-33.0); MEAN CORPUSCULAR HGB CONC 33.3 g/dl (32.0-36.5); MEAN CORPUSCULAR VOLUME 94.8 fl (80.0-96.0); PLATELET COUNT, AUTOMATED 127 10^3/uL (150-450); RED BLOOD COUNT 2.69 10^6/uL (4.30-6.10); WHITE BLOOD COUNT 8.5 10^3/uL (4.0-10.0)
[2018-08-08 06:48] LABS: BILIRUBIN,TOTAL 0.2 MG/DL (0.2-1.0); CALCIUM LEVEL 7.3 MG/DL (8.8-10.2); CREATININE FOR GFR 3.12 MG/DL (0.70-1.30); GLOMERULAR FILTRATION RATE 21.7 (>49); POTASSIUM SERUM 3.4 MEQ/L (3.5-5.1); TOTAL PROTEIN 6.9 GM/DL (6.4-8.2)
[2018-08-08] MEDS: (RENVELA) SEVELAMER **CARBONate** 800 MG TAB PO SCH ×3 (08:26→18:19)
[2018-08-08] MEDS: OMEPRAZOLE 20 MG CAP PO SCH (08:27)
[2018-08-08] MEDS: FLUoxetine 20 MG CAP PO SCH (08:27)
[2018-08-08] MEDS: POTASSIUM CHLORIDE 10 MEQ SR TABLET PO SCH (08:27)
[2018-08-08] MEDS: NYSTATIN 100,000 UNITS/GM TOPICAL PWD 15 GM TOP SCH ×2 (08:28→20:42)
[2018-08-08] MEDS: SENOKOT S TAB PO SCH ×2 (08:28→20:41)
[2018-08-08] MEDS: HEPARIN SOD (PORCINE) 5000 UNITS/ML VIAL SQ SCH ×2 (08:29→20:42)
[2018-08-08] MEDS: PREGABALIN 100 MG CAP (LYRICA) PO SCH ×2 (08:30→20:42)
[2018-08-08] MEDS: TORSEMIDE 20 MG TAB PO SCH (08:30)
[2018-08-08] MEDS: METOPROLOL TART 50 MG TAB PO SCH ×2 (08:30→20:41)
[2018-08-08] MEDS: cefTRIAXone SOD 1 GM in D5W MINI-BAG PLUS 50 ML IV SCH (09:37)
[2018-08-08] MEDS: IRON SUCROSE 200 MG in NS 100 ML IV SCH (12:35)
[2018-08-08 12:40] LABS: HEPATITIS B SURFACE ANTIGEN NEGATIVE (NEGATIVE)
[2018-08-08 14:00] VITALS: BP 119/59
--- NOTE | 2018-08-08 16:43 | IPNPDOC ---
Subjective Date Seen The patient was seen on 08/08/18. Subjective Chief Complaint/HPI The patient has fatigue. No energy. He really wants to avoid dialysis if he could. He still makes urine well. No other complaints. General: Reports: Fatigue; Denies: ROS Unobtainable, Chills, Night Sweats, Malaise, Normal Appetite, Other Symptoms Constitutional: Denies: Chills, Fever, Malaise, Night Sweats, Weakness, Fatigue, Weight Loss, Lethargy, Other Eyes: Denies: Pain, Vision change, Conjunctivae inflammation, Eyelid inflammation, Redness, Other ENT: Denies: Head Aches, Ear Pain, Dysphagia, Sinus Congestion, Post Nasal Drip, Sore Throat, Epistaxis, Other Symptoms Skin: Denies: Rash, Lesions, Jaundice, Bruising, Itching, Dry, Breakdown, Nail Changes, Other Pulmonary: Denies: Dyspnea, Cough, Pleuritic Chest Pain, Other Symptoms Cardiovascular: Denies: Chest Pain, Palpitations, Orthopnea, Paroxysmal Noc. Dyspnea, Edema, Lt Headedness, Other Symptoms Gastrointestinal: Denies: Nausea, Vomiting, Abdominal Pain, Diarrhea, Constipation, Melena, Hematochezia, Other Symptoms Genitourinary: Denies: Dysuria, Frequency, Incontinence, Hematuria, Retention, Other Symptoms Hematologic: Denies: Bruising, Bleeding Excessively, Petecchia, Purpura, Enlarged Lymph Nodes, Other Hematologic Endocrine: Denies: Polydipsia, Polyphagia, Polyuria, Heat Intolerance, Cold Intolerance, Other Endocrine Sx Musculoskeletal: Denies: Neck Pain, Back Pain, Shoulder Pain, Arm Pain, Hand Pa in, Leg Pain, Foot Pain, Joint Pain, Muscle Pain, Spasms, Other Symptoms Neurological: Denies: Weakness, Numbness, Incoordination, Change in speech, Confusion, Seizures, Other Symptoms Psych: Denies: Mood Normal, Anxiety, Depression, Memory Issues, Thoughts of Self Harm, Anger, Thoughts of Harming Other, Other Psych Objective Physical Examination General Exam: Positive: Alert Eye Exam: Positive: Conjunctiva & lids normal ENT Exam: Positive: Atraumatic, Mucous membr. moist/pink Neck Exam: Positive: Supple Chest Exam: Positive: Clear to auscultation, Normal air movement Heart Exam: Positive: Rate Normal Telemetry: Positive: No significant arrhythmia Abdomen Exam: Positive: Normal bowel sounds Extremity Exam: Positive: Other (no edema) Skin Exam: Positive: Nl turgor and temperature Neuro Exam: Positive: Normal Speech Psych Exam: Positive: Mood NL Assessment /Plan Problems (1) CKD (chronic kidney disease), stage III Status: Chronic Problem Text: # General weakness and UTI - The patient has electrolyte imbalance and UTI. - Continue ceftriaxone for UTI. - Continue to work with PT. PT recommends rehab. # End-stage renal disease, on hemodialysis. - Nephrology consulted for dialysis needs. Per nephrology, he will likely need HD twice/week given rising BUN. - on renvela and torsemide. Electrolytes have improved. # Hypertension, CAD, PAD - Continue on home meds metoprolol - Cont. torsemide, cont. home meds # Left LE ulcer - wound care consulted. 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 - continued on home meds torsemide # Morbid obesity. - chronic # Hypokalemia - Repleted. # depression - continued home dose of prozac # constipation/bowel regimen - on senokot and miralax # insomnia - trazodone Plan/VTE VTE Prophylaxis Ordered?: Yes (heparin) VS, I&O, 24H, Fishbone Vital Signs/I&O Vital Signs Date Time Temp Pulse Resp B/P (MAP) Pulse Ox O2 Delivery O2 Flow Rate FiO2 08/08/18 14:00 97.2 63 17 119/59 (79) 94 08/03/18 20:16 Room Air I&O- Last 24 Hours up to 6 AM 08/08/18 06:00 Intake Total 1745 ml Output Total 3300 ml Balance -1555 ml Laboratory Data 24H LABS Laboratory Tests 2 08/08/18 06:14: Nucleated Red Blood Cells % (auto) 0.0, Anion Gap 8, Glomerular Filtration Rate 21.7L, Blood Urea Nitrogen 66H, Creatinine 3.12H, Sodium Level 136, Potassium Level 3.4L, Chloride Level 100, Carbon Dioxide Level 28, Calcium Level 7.3L, Aspartate Amino Transf (AST/SGOT) 13, Alanine Aminotransferase (ALT/SGPT) 10L, Alkaline Phosphatase 94, Total Bilirubin 0.2, Total Protein 6.9, Albumin 2.0L, Albumin/Globulin Ratio 0.41L 08/08/18 11:12: Hepatitis B Surface Antigen NEGATIVE, Hepatitis C Antibody Index 0.0 CBC/BMP Laboratory Tests 08/08/18 06:14 Red Blood Count 2.69 L, Mean Corpuscular Volume 94.8, Mean Corpuscular Hemoglobin 31.6, Mean Corpuscular Hemoglobin Concent 33.3, Red Cell Distribution Width 15.9 H, Calcium Level 7.3 L, Aspartate Amino Transf (AST/SGOT) 13, Alanine Aminotransferase (ALT/SGPT) 10 L, Alkaline Phosphatase 94, Total Bilirubin 0.2, Total Protein 6.9, Albumin 2.0 L Microbiology Microbiology 08/04/18 Urine Culture - Final, Complete Klebsiella Pneumoniae OFE ELISE MD Aug 08, 2018 16:43
--- NOTE | 2018-08-08 18:37 | IPN ---
DATE: 08/08/2018 SUBJECTIVE: The patient was seen and examined at the bedside today morning. He is afebrile, hemodynamically stable. He is responding very well to the higher dose of diuretics. He made more than 3 liters of urine yesterday. His creatinine is staying stable; however, his BUN level is going up every day. The patient is hypokalemic with the use of diuretics; however, his sodium level has improved to normal. OBJECTIVE: Vital signs: Temperature is 97 degrees Fahrenheit, blood pressure 112/60, pulse is 74, respiratory rate of 18, saturating 97% on room air. Intake and output: Urine output recorded is 3.3 liters yesterday, 800 mL so far today since overnight. Weight in the bed scale is not available. PHYSICAL EXAMINATION: GENERAL: The patient is awake, alert, oriented times three, morbidly obese, lying in the bed in no apparent distress, wearing nasal cannula. HEAD AND NECK: Extraocular muscles intact. Pupils equally round and reactive to light. Mucous membranes are moist. Neck is supple. There is a right internal jugular (IJ) tunneled hemodialysis catheter. CARDIOVASCULAR: S1, S2, regular rate. Edema 1+ of the left lower extremity. No edema of the right lower extremity. RESPIRATORY: Chest is clear to auscultation bilaterally. Bilateral equal air entry. No rales or rhonchi. ABDOMEN: Soft, obese. Positive bowel sounds. Nontender. No organomegaly. MUSCULOSKELETAL: Decreased range of movement of bilateral lower extremities. The patient does not walk. CENTRAL NERVOUS SYSTEM: No focal deficit. Power is 5/5 in bilateral upper extremities. LABORATORY REVIEW: CBC showed WBC of 8.5, hemoglobin 8.5, platelets are 127. BMP showed sodium 136, potassium 3.4, chloride 100, bicarbonate 28, BUN 66, creatinine is 3.1, calcium 7.3. Albumin is 2. CURRENT INPATIENT MEDICATIONS: The patient's medications were all reviewed by me. His torsemide dose has been changed to 40 mg by mouth daily. No other change in the medications today as compared with yesterday. ASSESSMENT AND PLAN: 1. Renal failure requiring dialysis. The patient has not been dialyzed for the last 6 days. His GFR is fluctuating at around 20-21. Volume status is being optimized with diuretics. Continue to hold the dialysis for now. If his BUN level keeps on ongoing up, then he might need to restart dialysis. 2. Hyponatremia. It was hypervolemic hyponatremia. Sodium level has improved with diuresis; however, because of worsening azotemia, his diuretic dose has been decreased to torsemide 40 mg by mouth daily. 3. Hypokalemia. It is secondary to diuresis. Torsemide dose is decreased. Continue current dose of potassium chloride 20 mEq by mouth daily. 4. Anemia and iron deficiency and chronic kidney disease. Continue Venofer injections. Hemoglobin level is optimal. No need of blood transfusion at this point. 5. Klebsiella urinary tract infection. The patient continues to be on IV ceftriaxone. Anderson catheter has been removed today. DISPOSITION: If the patient's azotemia does not get worse and if his creatinine stays stable, his catheter will be removed by the end of this week.
[2018-08-08] MEDS: traZODone 100 MG TAB PO SCH (20:41)
[2018-08-08 22:00] VITALS: BP 114/59
[2018-08-09 06:00] VITALS: BP 114/57
[2018-08-09 06:36] LABS: HEMATOCRIT 26.3 % (42.0-52.0); HEMOGLOBIN 8.6 g/dl (13.5-17.5); MEAN CORPUSCULAR HEMOGLOBIN 31.7 pg (27.0-33.0); MEAN CORPUSCULAR HGB CONC 32.7 g/dl (32.0-36.5); PLATELET COUNT, AUTOMATED 118 10^3/uL (150-450); RED BLOOD COUNT 2.71 10^6/uL (4.30-6.10); WHITE BLOOD COUNT 8.3 10^3/uL (4.0-10.0)
[2018-08-09 07:03] LABS: ALBUMIN 2.1 GM/DL (3.2-5.2); BILIRUBIN,TOTAL 0.3 MG/DL (0.2-1.0); CALCIUM LEVEL 6.9 MG/DL (8.8-10.2); CREATININE FOR GFR 3.03 MG/DL (0.70-1.30); GLOMERULAR FILTRATION RATE 22.4 (>49); POTASSIUM SERUM 3.5 MEQ/L (3.5-5.1); TOTAL PROTEIN 7.1 GM/DL (6.4-8.2)
[2018-08-09] MEDS: METOPROLOL TART 50 MG TAB PO SCH ×2 (08:29→21:37)
[2018-08-09] MEDS: POTASSIUM CHLORIDE 10 MEQ SR TABLET PO SCH (08:29)
[2018-08-09] MEDS: PREGABALIN 100 MG CAP (LYRICA) PO SCH ×2 (08:29→21:36)
[2018-08-09] MEDS: (RENVELA) SEVELAMER **CARBONate** 800 MG TAB PO SCH ×3 (08:29→18:06)
[2018-08-09] MEDS: FLUoxetine 20 MG CAP PO SCH (08:30)
[2018-08-09] MEDS: HEPARIN SOD (PORCINE) 5000 UNITS/ML VIAL SQ SCH ×2 (08:30→21:38)
[2018-08-09] MEDS: OMEPRAZOLE 20 MG CAP PO SCH (08:30)
[2018-08-09] MEDS: TORSEMIDE 20 MG TAB PO SCH (08:30)
[2018-08-09] MEDS: SENOKOT S TAB PO SCH ×2 (08:30→21:36)
[2018-08-09] MEDS: NYSTATIN 100,000 UNITS/GM TOPICAL PWD 15 GM TOP SCH ×2 (08:31→21:38)
[2018-08-09] MEDS: DIAPER RELIEF PASTE (DESITIN) 60GM TOP SCH (09:00)
[2018-08-09] MEDS: EUCERIN 120GM CREAM TOP SCH (09:00)
[2018-08-09 10:11] LABS: HEPATITIS B CORE ANTIBODY IGG Negative (Negative)
[2018-08-09] MEDS: cefTRIAXone SOD 1 GM in D5W MINI-BAG PLUS 50 ML IV SCH (10:25)
--- NOTE | 2018-08-09 12:27 | IPNPDOC ---
Subjective Date Seen The patient was seen on 08/09/18. Subjective Chief Complaint/HPI The patient has no pain. Per patient, he has not been able to walk for more than 10 years after the leg fracture. He feels weak. I updated him that he will most likely need dialysis at least once or twice/day, and he understands. General: Reports: Fatigue, Malaise; Denies: ROS Unobtainable, Chills, Night Sweats, Normal Appetite, Other Symptoms Constitutional: Denies: Chills, Fever, Malaise, Night Sweats, Weakness, Fatigue, Weight Loss, Lethargy, Other Eyes: Denies: Pain, Vision change, Conjunctivae inflammation, Eyelid inflammation, Redness, Other ENT: Denies: Head Aches, Ear Pain, Dysphagia, Sinus Congestion, Post Nasal Drip, Sore Throat, Epistaxis, Other Symptoms Skin: Denies: Rash, Lesions, Jaundice, Bruising, Itching, Dry, Breakdown, Nail Changes, Other Pulmonary: Denies: Dyspnea, Cough, Pleuritic Chest Pain, Other Symptoms Cardiovascular: Denies: Chest Pain, Palpitations, Orthopnea, Paroxysmal Noc. Dyspnea, Edema, Lt Headedness, Other Symptoms Gastrointestinal: Denies: Nausea, Vomiting, Abdominal Pain, Diarrhea, Constipation, Melena, Hematochezia, Other Symptoms Genitourinary: Denies: Dysuria, Frequency, Incontinence, Hematuria, Retention, Other Symptoms Hematologic: Denies: Bruising, Bleeding Excessively, Petecchia, Purpura, Enlarged Lymph Nodes, Other Hematologic Endocrine: Denies: Polydipsia, Polyphagia, Polyuria, Heat Intolerance, Cold Intolerance, Other Endocrine Sx Musculoskeletal: Denies: Neck Pain, Back Pain, Shoulder Pain, Arm Pain, Hand Pain, Leg Pain, Foot Pain, Joint Pain, Muscle Pain, Spasms, Other Symptoms Neurological: Denies: Weakness, Numbness, Incoordination, Change in speech, Confusion, Seizures, Other Symptoms Psych: Denies: Mood Normal, Anxiety, Depression, Memory Issues, Thoughts of Self Harm, Anger, Thoughts of Harming Other, Other Psych Objective Physical Examination General Exam: Positive: Alert Eye Exam: Positive: Conjunctiva & lids normal ENT Exam: Positive: Atraumatic, Mucous membr. moist/pink Neck Exam: Positive: Supple Chest Exam: Positive: Clear to auscultation, Normal air movement Heart Exam: Positive: Rate Normal Telemetry: Positive: No significant arrhythmia Abdomen Exam: Positive: Normal bowel sounds Extremity Exam: Positive: Other (no edema) Skin Exam: Positive: Nl turgor and temperature Neuro Exam: Positive: Normal Speech Psych Exam: Positive: Mood NL Assessment /Plan Problems (1) CKD (chronic kidney disease), stage III Status: Chronic Problem Text: # General weakness and UTI - The patient has electrolyte imbalance and UTI. - Continue ceftriaxone for UTI. - Continue to work with PT. PT recommends rehab. # End-stage renal disease, on hemodialysis. - Nephrology consulted for dialysis needs. I spoke with him, and given rising BUN, the patient will likely need dialysis tomorrow, and at least once/twice per week in the future. - on renvela and torsemide. Torsemide dosage has been adjusted. Electrolytes have improved. # Hypertension, CAD, PAD - Continue on home meds metoprolol - Cont. torsemide, cont. home meds # Left LE ulcer - wound care consulted. 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 - continued on home meds torsemide # Morbid obesity. - chronic # Hypokalemia - Repleted. # depression - continued home dose of prozac # constipation/bowel regimen - on senokot and miralax # insomnia - trazodone # Moderate protein calorie malnutrition - Continue to encourage PO intake. Plan/VTE VTE Prophylaxis Ordered?: Yes (heparin) VS, I&O, 24H, Fishbone Vital Signs/I&O Vital Signs Date Time Temp Pulse Resp B/P (MAP) Pulse Ox O2 Delivery O2 Flow Rate FiO2 08/09/18 08:29 83 114/60 08/09/18 06:00 97.1 17 94 08/03/18 20:16 Room Air I&O- Last 24 Hours up to 6 AM 08/09/18 06:00 Intake Total 1785 ml Output Total 1050 ml Balance 735 ml Laboratory Data 24H LABS Laboratory Tests 2 08/09/18 06:09: Nucleated Red Blood Cells % (auto) 0.0, Anion Gap 10, Glomerular Filtration Rate 22.4L, Blood Urea Nitrogen 74H, Creatinine 3.03H, Sodium Level 137, Potassium Level 3.5, Chloride Level 99, Carbon Dioxide Level 28, Calcium Level 6.9L, Aspartate Amino Transf (AST/SGOT) 22, Alanine Aminotransferase (ALT/SGPT) 15, Alkaline Phosphatase 111, Total Bilirubin 0.3, Total Protein 7.1, Albumin 2.1L, Albumin/Globulin Ratio 0.42L CBC/BMP Laboratory Tests 08/09/18 06:09 Red Blood Count 2.71 L, Mean Corpuscular Volume 97.0 H, Mean Corpuscular Hemoglobin 31.7, Mean Corpuscular Hemoglobin Concent 32.7, Red Cell Distribution Width 15.9 H, Calcium Level 6.9 L, Aspartate Amino Transf (AST/SGOT) 22, Alanine Aminotransferase (ALT/SGPT) 15, Alkaline Phosphatase 111, Total Bilirubin 0.3, Total Protein 7.1, Albumin 2.1 L Microbiology Microbiology 08/04/18 Urine Culture - Final, Complete Klebsiella Pneumoniae OFE ELISE MD Aug 09, 2018 12:27
[2018-08-09 14:00] VITALS: BP 122/65
--- NOTE | 2018-08-09 20:40 | IPN ---
DATE: 08/09/2018 SUBJECTIVE The patient was seen and examined at the bedside today morning. He is afebrile, hemodynamically stable. He has a good urine output. His creatinine is stable. However, his BUN level continues to climb up every day. He denies any active complaints apart from weakness and inability to walk. OBJECTIVE Vital signs: Temperature is 97.1 degrees Fahrenheit. Blood pressure is 114/57, pulse is 93, respiratory rate of 17, saturating 94% on room air. Intake and output: Urine output recorded is 1.3 liters yesterday, 358 mL so far today since overnight. Weight in the bed scale is not available. PHYSICAL EXAMINATION General: The patient is awake, alert, oriented times three, morbidly obese, laying in bed in no apparent distress. Head and neck examination: Extraocular muscles intact. Pupils equally round and reactive to light. Mucous membranes are moist. Neck is supple. There is no JVD. He has a right IJ tunneled hemodialysis catheter. Cardiovascular: S1, S2, regular rate. 1+ edema of the left lower extremity. Respiratory: Chest is clear to auscultation bilaterally. Bilateral equal air entry. No rales or rhonchi. Abdomen: Soft, obese, positive bowel sounds. Nontender. No organomegaly. Musculoskeletal: Decreased range of movement of bilateral lower extremities. He has a dressing on the left leg from an ulcer. 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 Power is 05/05 in all extremities. LAB REVIEW: CBC showed a WBC of 8.3, hemoglobin 8.6, platelets of 118. BMP showed sodium 137, potassium 3.5, chloride 99, bicarbonate 28, BUN 74, creatinine is 3.03, calcium 6.9. CURRENT INPATIENT MEDICATIONS: The patient's medications were all reviewed by me. His torsemide dose was decreased to 40 mg by mouth daily. He continues to be on IV ceftriaxone. No other change in the medications today as compared with yesterday. ASSESSMENT/PLAN 1. Renal failure requiring dialysis. The patient has not been dialyzed for 1 week now. His creatinine is stable. However, his BUN level is slowly rising. I will follow his renal profile tomorrow as well. If his BUN continues to climb then the patient will at least need once or twice a week dialysis to clear his uremic toxins. 24-hour creatinine clearance came up to be around 21 mL per minute. 2. Anemia, iron deficiency and chronic kidney disease. The patient is getting IV Venofer. Hemoglobin level is 8.6. He also got a dose of Aranesp 200 mcg subcu on Monday. No need of blood transfusion at this time. 3. Klebsiella urinary tract infection. The patient is on IV ceftriaxone. He would finish one week course. Anderson catheter has been removed. 4. Hypokalemia. Potassium level has improved after decreasing the dose of torsemide.
[2018-08-09] MEDS ORDERED: CEFDINIR 300 MG CAP (OMNICEF) PO SCH (21:00)
[2018-08-09] MEDS: ACETAMINOPHEN 500 MG TAB PO PRN (21:36)
[2018-08-09] MEDS: traZODone 100 MG TAB PO SCH (21:37)
[2018-08-09 22:00] VITALS: BP 120/58
[2018-08-10 06:00] VITALS: BP 111/62
[2018-08-10 06:28] LABS: HEMOGLOBIN 8.1 g/dl (13.5-17.5); MEAN CORPUSCULAR HEMOGLOBIN 30.9 pg (27.0-33.0); MEAN CORPUSCULAR HGB CONC 32.4 g/dl (32.0-36.5); MEAN CORPUSCULAR VOLUME 95.4 fl (80.0-96.0); PLATELET COUNT, AUTOMATED 129 10^3/uL (150-450); RED BLOOD COUNT 2.62 10^6/uL (4.30-6.10); WHITE BLOOD COUNT 6.5 10^3/uL (4.0-10.0)
[2018-08-10 06:51] LABS: BILIRUBIN,TOTAL 0.2 MG/DL (0.2-1.0); CREATININE FOR GFR 2.91 MG/DL (0.70-1.30); GLOMERULAR FILTRATION RATE 23.5 (>49); POTASSIUM SERUM 3.4 MEQ/L (3.5-5.1); TOTAL PROTEIN 6.9 GM/DL (6.4-8.2)
[2018-08-10] MEDS: (RENVELA) SEVELAMER **CARBONate** 800 MG TAB PO SCH ×3 (08:00→18:03)
[2018-08-10] MEDS ORDERED: HEPARIN 1,000 UNITS/ML 10ML VIAL (FOR RADIOLOGY& DIALYSIS ONLY) XX ONE (10:30)
[2018-08-10] MEDS ORDERED: HEPARIN 1,000 UNITS/ML 10ML VIAL (FOR RADIOLOGY& DIALYSIS ONLY) IV ONE (10:30)
[2018-08-10] MEDS ORDERED: DARBEPOETIN 100 MCG/0.5 ML *DIALYSIS* SYRINGE (J0882) IV SCH (11:30)
--- NOTE | 2018-08-10 12:05 | CR ---
DATE OF CONSULTATION: 08/09/2018 CONSULT REQUESTED BY: Dr. Pam Terry REASON FOR CONSULTATION: This is regarding left lower extremity venous stasis wound care. This is a 63-year-old nonambulatory obese male, non-diabetic well-known to the clinic, who most recently was in long-term care and has been discharged. This was a result of a fracture of the left femur, which has now healed. The patient has a longstanding history of extensive left lower extremity venous stasis ulcerations and has also had a history of advanced peripheral vascular disease which has been treated with angioplasty. At present the left lower extremity is adequately-perfused and there was no evidence of ischemic changes involving the foot. He has chronic gravitational dependent edema, nonpitting, which has been difficult to control due to his nonambulatory status and his obesity. The patient now has been admitted for issues regarding kidney disease and he is a potential candidate for beginning dialysis, although this has not been initiated at this time. In terms of his left lower extremity there is an extensive full-thickness partially circumferential venous wound encompassing the lateral aspect of his left lower extremity from the mid tibial to the supramalleolar area. The borders are irregular, somewhat ragged. The wound base shows areas of granulation tissue and superficial fibrin slough. The drainage is moderate to heavy, serosanguineous without odor. Her no deep structures seen and there is no evidence of cellulitis. The patient has a UTI and has been on Rocephin for this, although this is not indicated for his left lower extremity wound. Treatment should entail gently scrubbing the wound with gauze, 4x4 and Vashe wound cleanser to remove any superficial fibrin deposits. Vashe should then be placed on a 4x4 gauze soaking it and applying it to the wound for 10 minutes. This should then be removed and a dressing utilizing hydrofera blue transfer will be applied to the wound, covered with an OptiLock and then a two-layer compression wrap beginning at the metatarsal level and continuing up to the popliteal level. Dressings should be changed every 3-4 days or twice a week. Mild Trendelenburg for the bed is suggested although the patient has not been able to tolerate this in the past. Diet can be supplemented with Ensure and Medardo. EPC cream or Desitin can be used for the periwound to protected it as moderate to heavy drainage has been noted from this wound in the past. When the patient is stable and discharged, he can be followed up at our wound care center as he has been a patient here before. Thank you for this consultation. ANU
--- NOTE | 2018-08-10 13:13 | IPNPDOC ---
Subjective Date Seen The patient was seen on 08/10/18. Subjective Chief Complaint/HPI The patient feels weak. Denies a fever, chills, nausea, vomiting, or diarrhea. Denies chest pain, palpitation, or shortness of breath. Still urinating, and he has no dysuria. General: Reports: Fatigue Constitutional: Reports: Malaise Eyes: Denies: Pain, Vision change, Conjunctivae inflammation, Eyelid inflammation, Redness, Other ENT: Denies: Head Aches, Ear Pain, Dysphagia, Sinus Congestion, Post Nasal Drip, Sore Throat, Epistaxis, Other Symptoms Skin: Denies: Rash, Lesions, Jaundice, Bruising, Itching, Dry, Breakdown, Nail Changes, Other Pulmonary: Denies: Dyspnea, Cough, Pleuritic Chest Pain, Other Symptoms Cardiovascular: Denies: Chest Pain, Palpitations, Orthopnea, Paroxysmal Noc. Dyspnea, Edema, Lt Headedness, Other Symptoms Gastrointestinal: Denies: Nausea, Vomiting, Abdominal Pain, Diarrhea, Constipation, Melena, Hematochezia, Other Symptoms Genitourinary: Denies: Dysuria, Frequency, Incontinence, Hematuria, Retention, Other Symptoms Hematologic: Denies: Bruising, Bleeding Excessively, Petecchia, Purpura, Enlarged Lymph Nodes, Other Hematologic Endocrine: Denies: Polydipsia, Polyphagia, Polyuria, Heat Intolerance, Cold Intolerance, Other Endocrine Sx Musculoskeletal: Denies: Neck Pain, Back Pain, Shoulder Pain, Arm Pain, Hand Pain, Leg Pain, Foot Pain, Joint Pain, Muscle Pain, Spasms, Other Symptoms Neurological: Denies: Weakness, Numbness, Incoordination, Change in speech, Confusion, Seizures, Other Symptoms Psych: Denies: Mood Normal, Anxiety, Depression, Memory Issues, Thoughts of Self Harm, Anger, Thoughts of Harming Other, Other Psych Objective Physical Examination General Exam: Positive: Alert Eye Exam: Positive: Conjunctiva & lids normal ENT Exam: Positive: Atraumatic, Mucous membr. moist/pink Neck Exam: Positive: Supple Chest Exam: Positive: Clear to auscultation, Normal air movement Heart Exam: Positive: Rate Normal Telemetry: Positive: No significant arrhythmia Abdomen Exam: Positive: Normal bowel sounds Extremity Exam: Positive: Other (no edema) Skin Exam: Positive: Nl turgor and temperature Neuro Exam: Positive: Normal Speech Psych Exam: Positive: Mood NL Assessment /Plan Problems (1) CKD (chronic kidney disease), stage III Status: Chronic Problem Text: # General weakness and UTI - The patient has electrolyte imbalance and UTI. - Today is the last day of ceftriaxone, 7 day course. He received it this morning, and I discontinued it. - Continue to work with PT. PT recommends rehab. # End-stage renal disease, on hemodialysis. - BUN is uptrending, and nephrology recommends dialysis. - on renvela and torsemide. Torsemide dosage has been adjusted. Electrolytes have improved. # Hypertension, CAD, PAD - Continue on home meds metoprolol - Cont. torsemide, cont. home meds # Left LE ulcer - wound care consulted. 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 - continued on home meds torsemide # Morbid obesity. - chronic # depression - continued home dose of prozac # constipation/bowel regimen - on senokot and miralax # insomnia - trazodone # Moderate protein calorie malnutrition - Continue to encourage PO intake. Plan/VTE VTE Prophylaxis Ordered?: Yes (heparin) VS, I&O, 24H, Fishbone Vital Signs/I&O Vital Signs Date Time Temp Pulse Resp B/P (MAP) Pulse Ox O2 Delivery O2 Flow Rate FiO2 08/10/18 06:00 96.7 65 16 111/62 (78) 93 I&O- Last 24 Hours up to 6 AM 08/10/18 06:00 Intake Total 1960 ml Output Total 1800 ml Balance 160 ml Laboratory Data 24H LABS Laboratory Tests 2 08/10/18 05:30: Nucleated Red Blood Cells % (auto) 0.0, Anion Gap 11, Glomerular Filtration Rate 23.5L, Blood Urea Nitrogen 81H, Creatinine 2.91H, Sodium Level 137, Potassium Level 3.4L, Chloride Level 98, Carbon Dioxide Level 28, Calcium Level 7.0L, Aspartate Amino Transf (AST/SGOT) 18, Alanine Aminotransferase (ALT/SGPT) 16, Alkaline Phosphatase 114, Total Bilirubin 0.2, Total Protein 6.9, Albumin 2.0L, Albumin/Globulin Ratio 0.41L CBC/BMP Laboratory Tests 08/10/18 05:30 Red Blood Count 2.62 L, Mean Corpuscular Volume 95.4, Mean Corpuscular Hemoglobin 30.9, Mean Corpuscular Hemoglobin Concent 32.4, Red Cell Distribution Width 15.7 H, Calcium Level 7.0 L, Aspartate Amino Transf (AST/SGOT) 18, Alanine Aminotransferase (ALT/SGPT) 16, Alkaline Phosphatase 114, Total Bilirubin 0.2, Total Protein 6.9, Albumin 2.0 L Microbiology Microbiology 08/04/18 Urine Culture - Final, Complete Klebsiella Pneumoniae OFE ELISE MD Aug 10, 2018 13:13
[2018-08-10 13:15] VITALS: BP 140/63
[2018-08-10] MEDS: POTASSIUM CHLORIDE 10 MEQ SR TABLET PO SCH (13:37)
[2018-08-10] MEDS: METOPROLOL TART 50 MG TAB PO SCH ×2 (13:37→20:55)
[2018-08-10] MEDS: OMEPRAZOLE 20 MG CAP PO SCH (13:38)
[2018-08-10] MEDS: FLUoxetine 20 MG CAP PO SCH (13:38)
[2018-08-10] MEDS: PREGABALIN 100 MG CAP (LYRICA) PO SCH ×2 (13:38→20:53)
[2018-08-10] MEDS: SENOKOT S TAB PO SCH ×2 (13:38→20:55)
[2018-08-10] MEDS: HEPARIN SOD (PORCINE) 5000 UNITS/ML VIAL SQ SCH ×2 (13:38→20:55)
[2018-08-10] MEDS: TORSEMIDE 20 MG TAB PO SCH (13:38)
[2018-08-10] MEDS: NYSTATIN 100,000 UNITS/GM TOPICAL PWD 15 GM TOP SCH ×2 (13:39→20:55)
[2018-08-10] MEDS: IRON SUCROSE 200 MG in NS 100 ML IV SCH (13:39)
--- NOTE | 2018-08-10 19:27 | IPN ---
DATE: 08/10/2018 SUBJECTIVE The patient was seen and examined at the bedside today morning during hemodialysis procedure. The patient's lab trends were checked for the last 1 week without dialysis. His creatinine was stable but his BUN level was rising so decision was made to restart the patient on dialysis. The patient denies any active complaints at this point. OBJECTIVE Vital signs: Temperature is 96.7 degrees Fahrenheit, blood pressure 111/62, pulse is 65, respiratory rate of 16, saturating 93% on room air. Intake and output: Urine output recorded as 1600 mL yesterday, 550 mL so far today since overnight. Weight in the bed scale is not available. PHYSICAL EXAMINATION General: The patient is awake, alert, oriented times three, morbidly obese, laying in the bed getting hemodialysis done. Head and neck examination: Extraocular muscles intact. Pupils equally round and reactive to light. Mucous membranes are moist. Neck is supple. He has a right IJ tunneled hemodialysis catheter which is being used for dialysis. Cardiovascular: S1, S2, regular rate. 1+ edema of the left lower extremity. Respiratory: Chest is clear to auscultation bilaterally. Bilateral equal air entry. No rales or rhonchi. Abdomen: Soft and obese, positive bowel sounds. Nontender. No organomegaly. Musculoskeletal: Decreased range of movement of bilateral lower extremities. The patient is chronically bedridden. 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 He is able to communicate. He moves bilateral upper extremities. LAB REVIEW: CBC showed WBC of 6.5, hemoglobin 8.1, platelets of 129. BMP showed sodium 137, potassium 3.4, chloride 98, bicarb 28, BUN is 81, creatinine 2.9, albumin 2. CURRENT INPATIENT MEDICATIONS The patient's medications were all reviewed by me. Omnicef has been stopped. The patient continues to be on ceftriaxone. He has received three doses of Venofer 200 mg IV x 48 hourly. No other change in medications today as compared with yesterday. ASSESSMENT/PLAN 1. Renal failure. The patient was off of dialysis for 1 week and looking at the trend on his basic metabolic panel his BUN level was constantly rising even though his creatinine was stable. The patient is morbidly obese. He will need at least once or twice a week dialysis. He is being dialyzed today. I will try to remove about 1.5 to 2 liters of fluid. 2. Anemia secondary to iron deficiency and chronic kidney disease. The patient got Venofer. He is also getting Aranesp subcu. I would change to IV Aranesp with dialysis. 3. Klebsiella UTI. The patient is on IV ceftriaxone. 4. Hypokalemia. The patient is being dialyzed with a 4K bath. Potassium level will likely improve with that. 5. Protein calorie malnutrition. Albumin level is 2. Encourage more protein intake.
[2018-08-10] MEDS: traZODone 100 MG TAB PO SCH (20:53)
[2018-08-10 22:00] VITALS: BP 105/57
[2018-08-11 05:55] LABS: HEMATOCRIT 27.9 % (42.0-52.0); HEMOGLOBIN 8.9 g/dl (13.5-17.5); MEAN CORPUSCULAR HEMOGLOBIN 31.6 pg (27.0-33.0); MEAN CORPUSCULAR HGB CONC 31.9 g/dl (32.0-36.5); MEAN CORPUSCULAR VOLUME 98.9 fl (80.0-96.0); PLATELET COUNT, AUTOMATED 130 10^3/uL (150-450); RED BLOOD COUNT 2.82 10^6/uL (4.30-6.10); WHITE BLOOD COUNT 5.6 10^3/uL (4.0-10.0)
[2018-08-11 06:00] VITALS: BP 108/55
[2018-08-11 06:29] LABS: ALBUMIN 2.1 GM/DL (3.2-5.2); BILIRUBIN,TOTAL 0.2 MG/DL (0.2-1.0); CREATININE FOR GFR 1.76 MG/DL (0.70-1.30); POTASSIUM SERUM 4.3 MEQ/L (3.5-5.1); TOTAL PROTEIN 7.3 GM/DL (6.4-8.2)
[2018-08-11] MEDS: POTASSIUM CHLORIDE 10 MEQ SR TABLET PO SCH (08:50)
[2018-08-11] MEDS: PREGABALIN 100 MG CAP (LYRICA) PO SCH ×2 (08:50→20:24)
[2018-08-11] MEDS: FLUoxetine 20 MG CAP PO SCH (08:50)
[2018-08-11] MEDS: OMEPRAZOLE 20 MG CAP PO SCH (08:50)
[2018-08-11] MEDS: (RENVELA) SEVELAMER **CARBONate** 800 MG TAB PO SCH ×3 (08:50→17:04)
[2018-08-11] MEDS: SENOKOT S TAB PO SCH ×2 (08:50→20:24)
[2018-08-11] MEDS: TORSEMIDE 20 MG TAB PO SCH (08:50)
[2018-08-11] MEDS: HEPARIN SOD (PORCINE) 5000 UNITS/ML VIAL SQ SCH ×2 (08:51→20:25)
[2018-08-11] MEDS: NYSTATIN 100,000 UNITS/GM TOPICAL PWD 15 GM TOP SCH ×2 (08:51→20:25)
[2018-08-11] MEDS: METOPROLOL TART 50 MG TAB PO SCH ×2 (08:51→20:24)
[2018-08-11] MEDS ORDERED: TUBERCULIN PPD 5 UNITS/0.1 ML ID ONE ×2 (09:00)
--- NOTE | 2018-08-11 12:36 | IPNPDOC ---
Subjective Date Seen The patient was seen on 08/11/18. Subjective Chief Complaint/HPI The patient feels more fatigued today, but denies any focal symptoms. Denies a fever, chills, nausea, vomiting, or diarrhea/constipation. No dysuria or urgency. General: Reports: Fatigue; Denies: ROS Unobtainable, Chills, Night Sweats, Malaise, Normal Appetite, Other Symptoms Constitutional: Denies: Chills, Fever, Malaise, Night Sweats, Weakness, Fatigue, Weight Loss, Lethargy, Other Eyes: Denies: Pain, Vision change, Conjunctivae inflammation, Eyelid inflammation, Redness, Other ENT: Denies: Head Aches, Ear Pain, Dysphagia, Sinus Congestion, Post Nasal Drip, Sore Throat, Epistaxis, Other Symptoms Skin: Denies: Rash, Lesions, Jaundice, Bruising, Itching, Dry, Breakdown, Nail Changes, Other Pulmonary: Denies: Dyspnea, Cough, Pleuritic Chest Pain, Other Symptoms Cardiovascular: Denies: Chest Pain, Palpitations, Orthopnea, Paroxysmal Noc. Dyspnea, Edema, Lt Headedness, Other Symptoms Gastrointestinal: Denies: Nausea, Vomiting, Abdominal Pain, Diarrhea, Con stipation, Melena, Hematochezia, Other Symptoms Genitourinary: Denies: Dysuria, Frequency, Incontinence, Hematuria, Retention, Other Symptoms Hematologic: Denies: Bruising, Bleeding Excessively, Petecchia, Purpura, Enlarged Lymph Nodes, Other Hematologic Endocrine: Denies: Polydipsia, Polyphagia, Polyuria, Heat Intolerance, Cold Int olerance, Other Endocrine Sx Musculoskeletal: Denies: Neck Pain, Back Pain, Shoulder Pain, Arm Pain, Hand Pain, Leg Pain, Foot Pain, Joint Pain, Muscle Pain, Spasms, Other Symptoms Neurological: Denies: Weakness, Numbness, Incoordination, Change in speech, Confusion, Seizures, Other Symptoms Psych: Denies: Mood Normal, Anxiety, Depression, Memory Issues, Thoughts of Self Harm, Anger, Thoughts of Harming Other, Other Psych Objective Physical Examination General Exam: Positive: Alert Eye Exam: Positive: Conjunctiva & lids normal ENT Exam: Positive: Atraumatic, Mucous membr. moist/pink Neck Exam: Positive: Supple Chest Exam: Positive: Clear to auscultation, Normal air movement Heart Exam: Positive: Rate Normal Telemetry: Positive: No significant arrhythmia Abdomen Exam: Positive: Normal bowel sounds Extremity Exam: Positive: Other (no edema) Skin Exam: Positive: Nl turgor and temperature Neuro Exam: Positive: Normal Speech Psych Exam: Positive: Mood NL Assessment /Plan Problems (1) CKD (chronic kidney disease), stage III Status: Chronic Problem Text: # General weakness and UTI - UTI was successfully treated with 7 day course of ceftriaxone. - He had dialysis yesterday, given rising BUN, and BUN has decreased today. - Continue to work with PT. PT recommends rehab. # End-stage renal disease, on hemodialysis. - Nephrology recommends dialysis at least once/twice/week. - on renvela and torsemide. Torsemide dosage has been adjusted. # Hypertension, CAD, PAD - Continue on home meds metoprolol - Cont. torsemide, cont. home meds # Left LE ulcer - wound care consulted. 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 - continued on home meds torsemide # Morbid obesity. - chronic # depression - continued home dose of prozac # constipation/bowel regimen - on senokot and miralax # insomnia - trazodone # Moderate protein calorie malnutrition - Continue to encourage PO intake. Disposition: waiting for placement providing dialysis. Plan/VTE VTE Prophylaxis Ordered?: Yes (heparin) VS, I&O, 24H, Fishbone Vital Signs/I&O Vital Signs Date Time Temp Pulse Resp B/P (MAP) Pulse Ox O2 Delivery O2 Flow Rate FiO2 08/11/18 08:51 69 115/60 08/11/18 06:00 97.3 18 96 I&O- Last 24 Hours up to 6 AM 08/11/18 06:00 Intake Total 2180 ml Output Total 2050 ml Balance 130 ml Laboratory Data 24H LABS Laboratory Tests 2 08/11/18 05:32: Nucleated Red Blood Cells % (auto) 0.0, Anion Gap 7L, Glomerular Filtration Rate 42.0L, Blood Urea Nitrogen 38#H, Creatinine 1.76H, Sodium Level 140, Potassium Level 4.3#, Chloride Level 104, Carbon Dioxide Level 29, Calcium Level 8.0L, Aspartate Amino Transf (AST/SGOT) 22, Alanine Aminotransferase (ALT/SGPT) 32, Alkaline Phosphatase 139H, Total Bilirubin 0.2, Total Protein 7.3, Albumin 2.1L, Albumin/Globulin Ratio 0.40L CBC/BMP Laboratory Tests 08/11/18 05:32 Red Blood Count 2.82 L, Mean Corpuscular Volume 98.9 H, Mean Corpuscular Hemoglobin 31.6, Mean Corpuscular Hemoglobin Concent 31.9 L, Red Cell Distrib ution Width 15.6 H, Calcium Level 8.0 L, Aspartate Amino Transf (AST/SGOT) 22, Alanine Aminotransferase (ALT/SGPT) 32, Alkaline Phosphatase 139 H, Total Bilirubin 0.2, Total Protein 7.3, Albumin 2.1 L Microbiology Microbiology 08/04/18 Urine Culture - Final, Complete Klebsiella Pneumoniae OFE ELISE MD Aug 11, 2018 12:36
--- NOTE | 2018-08-11 13:08 | IPN ---
DATE OF SERVICE: 08/11/2018 SUBJECTIVE: Patient was seen and examined the bedside today morning. He was dialyzed yesterday and 1 liter of fluid was removed. He denies any active complaints. OBJECTIVE: VITAL SIGNS: Temperature is 97.3 degrees Fahrenheit, blood pressure 115/60, pulse is 69, respiratory rate of 18, saturating 96% on room air. INTAKE AND OUTPUT: His urine output recorded is 800 mL since overnight. Ultrafiltration with hemodialysis was 1 liter. Weight on the bed scale is not available. PHYSICAL EXAMINATION: General: The patient is awake, alert, oriented times three, morbidly obese, sitting in bed in no apparent distress. Head and neck exam extraocular muscles intact. Pupils equally round and reactive to light. Mucous membranes are moist. Neck is supple. He has a right IJ tunneled hemodialysis catheter. Cardiovascular: S1, S2 regular rate. 1+ edema of the left lower extremity. Respiratory: Chest is clear to auscultation bilaterally. Bilateral equal air entry. No rales or rhonchi. Abdomen: Soft, obese, positive bowel sounds. Nontender. Musculoskeletal: Decreased range of movement of bilateral lower extremities, chronically bedridden. 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 LAB REVIEW: CBC showed a WBC of 5.6, hemoglobin 8.9, platelets of 130. BMP showed sodium 140, potassium 4.3, chloride 104, bicarb 29, BUN 38, creatinine is 1.76. CURRENT INPATIENT MEDICATIONS: The patient's medications were all reviewed by me. He continues to be on torsemide 40 mg p.o. once a day. IV Venofer has finished and IV ceftriaxone has also finished after 7 days. ASSESSMENT/PLAN: 1. End-stage renal disease requiring hemodialysis. The patient was dialyzed after skipping dialysis for one week. Although his creatinine was stable, his BUN levels were high and possibly his uremic toxins were also high. He would need at least once a week dialysis. His volume status is optimal. Continue current dose of torsemide 40 mg daily. 2. Anemia secondary to end-stage renal disease and iron deficiency. The patient was given Venofer 200 mg times three doses. He was also given a dose of Aranesp with dialysis yesterday, hemoglobin is improving to 8.9 today. 3. Klebsiella urinary tract infection. The patient finished a seven day course of ceftriaxone. 4. Protein calorie malnutrition. I am starting the patient on Nepro with lunch every day.
[2018-08-11 14:00] VITALS: BP 133/60
[2018-08-11] MEDS: traZODone 100 MG TAB PO SCH (20:24)
[2018-08-11 22:00] VITALS: BP 111/59
[2018-08-12 06:00] VITALS: BP 104/54
[2018-08-12 06:19] LABS: HEMATOCRIT 26.9 % (42.0-52.0); HEMOGLOBIN 8.6 g/dl (13.5-17.5); MEAN CORPUSCULAR HEMOGLOBIN 32.1 pg (27.0-33.0); MEAN CORPUSCULAR VOLUME 100.4 fl (80.0-96.0); PLATELET COUNT, AUTOMATED 137 10^3/uL (150-450); RED BLOOD COUNT 2.68 10^6/uL (4.30-6.10)
[2018-08-12 06:42] LABS: BILIRUBIN,TOTAL 0.1 MG/DL (0.2-1.0); CREATININE FOR GFR 2.19 MG/DL (0.70-1.30); GLOMERULAR FILTRATION RATE 32.6 (>49); POTASSIUM SERUM 3.9 MEQ/L (3.5-5.1); TOTAL PROTEIN 6.9 GM/DL (6.4-8.2)
[2018-08-12] MEDS: TORSEMIDE 20 MG TAB PO SCH (08:01)
[2018-08-12] MEDS: (RENVELA) SEVELAMER **CARBONate** 800 MG TAB PO SCH ×3 (08:01→18:32)
[2018-08-12] MEDS: FLUoxetine 20 MG CAP PO SCH (08:01)
[2018-08-12] MEDS: PREGABALIN 100 MG CAP (LYRICA) PO SCH ×2 (08:01→21:27)
[2018-08-12] MEDS: OMEPRAZOLE 20 MG CAP PO SCH (08:01)
[2018-08-12] MEDS: SENOKOT S TAB PO SCH ×2 (08:01→21:27)
[2018-08-12] MEDS: HEPARIN SOD (PORCINE) 5000 UNITS/ML VIAL SQ SCH ×2 (08:02→21:27)
[2018-08-12] MEDS: METOPROLOL TART 50 MG TAB PO SCH ×2 (08:02→21:27)
[2018-08-12] MEDS: NYSTATIN 100,000 UNITS/GM TOPICAL PWD 15 GM TOP SCH ×2 (08:02→21:28)
[2018-08-12] MEDS: POTASSIUM CHLORIDE 10 MEQ SR TABLET PO SCH (08:02)
[2018-08-12] MEDS ORDERED: PPD DOCUMENTATION ENTRY MISC XX SCH (10:00)
--- NOTE | 2018-08-12 10:58 | IPNPDOC ---
Subjective Date Seen The patient was seen on 08/12/18. Subjective Chief Complaint/HPI 1. New complaints at the present time General: Denies: ROS Unobtainable, Chills, Night Sweats, Fatigue, Malaise, Normal Appetite, Other Symptoms Constitutional: Denies: Chills, Fever, Malaise, Night Sweats, Weakness, Fatigue, Weight Loss, Lethargy, Other Eyes: Denies: Pain, Vision change, Conjunctivae inflammation, Eyelid inflammation, Redness, Other ENT: Denies: Head Aches, Ear Pain, Dysphagia, Sinus Congestion, Post Nasal Drip, Sore Throat, Epistaxis, Other Symptoms Skin: Denies: Rash, Lesions, Jaundice, Bruising, Itching, Dry, Breakdown, Nail Changes, Other Pulmonary: Denies: Dyspnea, Cough, Pleuritic Chest Pain, Other Symptoms Cardiovascular: Denies: Chest Pain, Palpitations, Orthopnea, Paroxysmal Noc. Dyspnea, Edema, Lt Headedness, Other Symptoms Gastrointestinal: Denies: Nausea, Vomiting, Abdominal Pain, Diarrhea, Constipation, Melena, Hematochezia, Other Symptoms Musculoskeletal: Denies: Neck Pain, Back Pain, Shoulder Pain, Arm Pain, Hand Pain, Leg Pain, Foot Pain, Joint Pain, Muscle Pain, Spasms, Other Symptoms Neurological: Denies: Weakness, Numbness, Incoordination, Change in speech, Confusion, Seizures, Other Symptoms Objective Physical Examination General Exam: Positive: Alert Eye Exam: Positive: Conjunctiva & lids normal ENT Exam: Positive: Atraumatic, Mucous membr. moist/pink Neck Exam: Positive: Supple Chest Exam: Positive: Clear to auscultation, Normal air movement Heart Exam: Positive: Rate Normal Telemetry: Positive: No significant arrhythmia Abdomen Exam: Positive: Normal bowel sounds Extremity Exam: Positive: Other (no edema) Skin Exam: Positive: Nl turgor and temperature Neuro Exam: Positive: Normal Speech Psych Exam: Positive: Mood NL Assessment /Plan Problems (1) CKD (chronic kidney disease), stage III Status: Chronic Problem Text: # General weakness and UTI - UTI was successfully treated with 7 day course of ceftriaxone. - He had dialysis yesterday, given rising BUN, and BUN has decreased today. - Continue to work with PT. PT recommends rehab. # End-stage renal disease, on hemodialysis. - Nephrology recommends dialysis at least once a week. - on renvela and torsemide. Torsemide dosage has been adjusted. -Had HD yesterday -am labs # Hypertension, CAD, PAD - Continue on home meds metoprolol - Cont. torsemide, cont. home meds # Left LE ulcer - wound care consulted. 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 - continued on home meds torsemide # Morbid obesity. - chronic # depression - continued home dose of prozac # constipation/bowel regimen - on senokot and miralax # insomnia - trazodone # Moderate protein calorie malnutrition - Continue to encourage PO intake. Disposition: waiting for placement providing dialysis. Plan/VTE VTE Prophylaxis Ordered?: Yes (heparin) VS, I&O, 24H, Fishbone Vital Signs/I&O Vital Signs Date Time Temp Pulse Resp B/P (MAP) Pulse Ox O2 Delivery O2 Flow Rate FiO2 08/12/18 08:02 64 111/58 08/12/18 06:00 96.8 19 97 I&O- Last 24 Hours up to 6 AM 08/12/18 05:59 Intake Total 1680 ml Output Total 1550 ml Balance 130 ml Laboratory Data 24H LABS Laboratory Tests 2 08/12/18 05:42: Nucleated Red Blood Cells % (auto) 0.0, Anion Gap 8, Glomerular Filtration Rate 32.6L, Blood Urea Nitrogen 52H, Creatinine 2.19H, Sodium Level 138, Potassium Level 3.9, Chloride Level 101, Carbon Dioxide Level 29, Calcium Level 8.0L, Aspartate Amino Transf (AST/SGOT) 17, Alanine Aminotransferase (ALT/SGPT) 18, Alkaline Phosphatase 115, Total Bilirubin 0.1L, Total Protein 6.9, Albumin 2.0L, Albumin/Globulin Ratio 0.41L CBC/BMP Laboratory Tests 08/12/18 05:42 Red Blood Count 2.68 L, Mean Corpuscular Volume 100.4 H, Mean Corpuscular Hemoglobin 32.1, Mean Corpuscular Hemoglobin Concent 32.0, Red Cell Distribution Width 15.9 H, Calcium Level 8.0 L, Aspartate Amino Transf (AST/SGOT) 17, Alanine Aminotransferase (ALT/SGPT) 18, Alkaline Phosphatase 115, Total Bilirubin 0.1 L, Total Protein 6.9, Albumin 2.0 L Microbiology Microbiology 08/04/18 Urine Culture - Final, Complete Klebsiella Pneumoniae ANUJ LUCERO MD Aug 12, 2018 10:58
[2018-08-12 14:00] VITALS: BP 131/76
[2018-08-12] MEDS: traZODone 100 MG TAB PO SCH (21:27)
[2018-08-12 22:00] VITALS: BP 132/62
[2018-08-13 06:00] VITALS: BP 126/62
[2018-08-13 06:36] LABS: HEMATOCRIT 27.4 % (42.0-52.0); HEMOGLOBIN 8.5 g/dl (13.5-17.5); MEAN CORPUSCULAR HEMOGLOBIN 31.3 pg (27.0-33.0); MEAN CORPUSCULAR VOLUME 100.7 fl (80.0-96.0); PLATELET COUNT, AUTOMATED 138 10^3/uL (150-450); RED BLOOD COUNT 2.72 10^6/uL (4.30-6.10)
[2018-08-13] MEDS: POTASSIUM CHLORIDE 10 MEQ SR TABLET PO SCH (08:42)
[2018-08-13] MEDS: PREGABALIN 100 MG CAP (LYRICA) PO SCH ×2 (08:42→21:26)
[2018-08-13] MEDS: FLUoxetine 20 MG CAP PO SCH (08:42)
[2018-08-13] MEDS: OMEPRAZOLE 20 MG CAP PO SCH (08:42)
[2018-08-13] MEDS: (RENVELA) SEVELAMER **CARBONate** 800 MG TAB PO SCH ×3 (08:42→17:42)
[2018-08-13] MEDS: SENOKOT S TAB PO SCH ×2 (08:42→21:25)
[2018-08-13] MEDS: METOPROLOL TART 50 MG TAB PO SCH ×2 (08:43→21:25)
[2018-08-13] MEDS: HEPARIN SOD (PORCINE) 5000 UNITS/ML VIAL SQ SCH ×2 (08:43→21:26)
[2018-08-13] MEDS: TORSEMIDE 20 MG TAB PO SCH (08:43)
[2018-08-13] MEDS: NYSTATIN 100,000 UNITS/GM TOPICAL PWD 15 GM TOP SCH ×2 (08:44→21:26)
[2018-08-13] MEDS: EUCERIN 120GM CREAM TOP SCH (08:45)
[2018-08-13] MEDS: DIAPER RELIEF PASTE (DESITIN) 60GM TOP SCH (08:45)
[2018-08-13] MEDS ORDERED: PPD DOCUMENTATION ENTRY MISC XX ONE (09:00)
[2018-08-13 10:47] LABS: ALBUMIN 2.1 GM/DL (3.2-5.2); BILIRUBIN,TOTAL 0.2 MG/DL (0.2-1.0); CALCIUM LEVEL 8.1 MG/DL (8.8-10.2); CREATININE FOR GFR 2.46 MG/DL (0.70-1.30); GLOMERULAR FILTRATION RATE 28.5 (>49); PTH INTACT 56.6 PG/ML (18.5-88.0); TOTAL PROTEIN 6.9 GM/DL (6.4-8.2)
--- NOTE | 2018-08-13 11:54 | IPNPDOC ---
Subjective Date Seen The patient was seen on 08/13/18. Subjective Chief Complaint/HPI No other complaints, lying down in bed in no apparent distress General: Denies: ROS Unobtainable, Chills, Night Sweats, Fatigue, Malaise, Normal Appetite, Other Symptoms Constitutional: Denies: Chills, Fever, Malaise, Night Sweats, Weakness, Fatigue, Weight Loss, Lethargy, Other Eyes: Denies: Pain, Vision change, Conjunctivae inflammation, Eyelid inflammation, Redness, Other ENT: Denies: Head Aches, Ear Pain, Dysphagia, Sinus Congestion, Post Nasal Drip , Sore Throat, Epistaxis, Other Symptoms Skin: Denies: Rash, Lesions, Jaundice, Bruising, Itching, Dry, Breakdown, Nail Changes, Other Pulmonary: Denies: Dyspnea, Cough, Pleuritic Chest Pain, Other Symptoms Cardiovascular: Denies: Chest Pain, Palpitations, Orthopnea, Paroxysmal Noc. Dyspnea, Edema, Lt Headedness, Other Symptoms Gastrointestinal: Denies: Nausea, Vomiting, Abdominal Pain, Diarrhea, Constipation, Melena, Hematochezia, Other Symptoms Musculoskeletal: Denies: Neck Pain, Back Pain, Shoulder Pain, Arm Pain, Hand Pain, Leg Pain, Foot Pain, Joint Pain, Muscle Pain, Spasms, Other Symptoms Neurological: Denies: Weakness, Numbness, Incoordination, Change in speech, Confusion, Seizures, Other Symptoms Objective Physical Examination General Exam: Positive: Alert Eye Exam: Positive: Conjunctiva & lids normal ENT Exam: Positive: Atraumatic, Mucous membr. moist/pink Neck Exam: Positive: Supple Chest Exam: Positive: Clear to auscultation, Normal air movement Heart Exam: Positive: Rate Normal Telemetry: Positive: No significant arrhythmia Abdomen Exam: Positive: Normal bowel sounds Extremity Exam: Positive: Other (no edema) Skin Exam: Positive: Nl turgor and temperature Neuro Exam: Positive: Normal Speech Psych Exam: Positive: Mood NL Assessment /Plan Problems (1) CKD (chronic kidney disease), stage III Status: Chronic Problem Text: # General weakness and UTI - UTI was successfully treated with 7 day course of ceftriaxone. - He had dialysis yesterday, given rising BUN, and BUN has decreased today. - Continue to work with PT. PT recommends rehab. # End-stage renal disease, on hemodialysis. - Nephrology recommends dialysis at least once a week. - on renvela and torsemide. Torsemide dosage has been adjusted. -Had HD yesterday -am labs # Hypertension, CAD, PAD - Continue on home meds metoprolol - Cont. torsemide, cont. home meds # Left LE ulcer - wound care consulted. 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 - continued on home meds torsemide # Morbid obesity. - chronic # depression - continued home dose of prozac # constipation/bowel regimen - on senokot and miralax # insomnia - trazodone # Moderate protein calorie malnutrition - Continue to encourage PO intake. Disposition: waiting for placement providing dialysis. Plan/VTE VTE Prophylaxis Ordered?: Yes (heparin) VS, I&O, 24H, Fishbone Vital Signs/I&O Vital Signs Date Time Temp Pulse Resp B/P (MAP) Pulse Ox O2 Delivery O2 Flow Rate FiO2 08/13/18 08:43 62 126/62 08/13/18 06:00 98.1 18 93 I&O- Last 24 Hours up to 6 AM 08/13/18 06:00 Intake Total 1984 ml Output Total 2075 ml Balance -91 ml Laboratory Data 24H LABS Laboratory Tests 2 08/13/18 05:35: Nucleated Red Blood Cells % (auto) 0.0, Anion Gap 7L, Glomerular Filtration Rate 28.5L, Blood Urea Nitrogen 58H, Creatinine 2.46H, Sodium Level 138, Potassium Level 4.0, Chloride Level 100, Carbon Dioxide Level 31, Calcium Level 8.1L, Aspartate Amino Transf (AST/SGOT) 18, Alanine Aminotransferase (ALT/SGPT) 17, Alkaline Phosphatase 109, Total Bilirubin 0.2#, Total Protein 6.9, Albumin 2.1L, Albumin/Globulin Ratio 0.44L, Parathyroid Hormone (Intact) 56.6 CBC/BMP Laboratory Tests 08/13/18 05:35 Red Blood Count 2.72 L, Mean Corpuscular Volume 100.7 H, Mean Corpuscular Hemoglobin 31.3, Mean Corpuscular Hemoglobin Concent 31.0 L, Red Cell Distribution Width 15.8 H, Calcium Level 8.1 L, Aspartate Amino Transf (AST/SGOT) 18, Alanine Aminotransferase (ALT/SGPT) 17, Alkaline Phosphatase 109, Total Bilirubin 0.2 #, Total Protein 6.9, Albumin 2.1 L Microbiology Microbiology 08/04/18 Urine Culture - Final, Complete Klebsiella Pneumoniae ANUJ LUCERO MD Aug 13, 2018 11:54
[2018-08-13 14:00] VITALS: BP 119/53
--- NOTE | 2018-08-13 20:35 | IPN ---
DATE OF SERVICE: 08/12/2018 SUBJECTIVE: Rocio is seen and examined this morning at the bedside. He denies any new events or complaints. No shortness of breath nor chest pain. He is pleased that he has no edema. VITAL SIGNS: Temperature 97.6, pulse 88, respiratory rate 21, blood pressure 131/76, saturating 98% on room air. Intake yesterday was 1980. Urine output yesterday was 1450. There were three bowel movements. Weight in the bed scale today is not recorded. PHYSICAL EXAMINATION: GENERAL: The patient is seen lying in bed, morbidly obese male awake, alert and oriented x3 in no distress. The ears, eyes and nose are unremarkable. Jugular veins are difficult to assess secondary to facial hair and tobias. The neck is supple. There is a tunneled hemodialysis catheter present in the right chest wall. CARDIAC: S1, S2. Regular rate. There is no significant edema in his peripheries or and his dependent area. LUNGS: The lungs show distant breath sounds secondary to body habitus otherwise clear to auscultation. No rale or rhonchi. ABDOMEN: Abdomen is soft and significantly obese. There are bowel sounds. SKIN: The skin has normal temperature and turgor. MUSCULOSKELETAL: There is generalized weakness and deconditioning and he is chronically bedridden. LABORATORY DATA: White count 6.0, hemoglobin 8.6, platelet 137, sodium 138, potassium 3.9, albumin 2.0. INPATIENT MEDICATIONS: Inpatient medications reviewed by myself and no change from prior. PROBLEMS: 1. End-stage renal disease on hemodialysis. Unfortunately, Mr. Eng has not recovered enough renal function to come off of hemodialysis dependency. Dialysis was held for about a week and his GFR was around the 20 mL/minute but he did have a daily rise in his blood urea nitrogen levels up to 81 at which point he was dialyzed. He does have good residual renal function and continues on torsemide. His electrolytes and volume status are optimized and at present he is being dialyzed via Perma-Catheter. 2. Anemia secondary to end-stage renal disease and iron deficiency. He was given Venofer 200 mg intravenous (IV) x3 doses and he continues on Aranesp with hemoglobin as well. His hemoglobin is suboptimal but stable in the 8s. There is no need for transfusion at present time. 3. Chronic kidney disease mineral bone dystrophy. The patient continues on Renvela and we will check a parathyroid hormone level. His corrected calcium is appropriate. 4. Hypertension. Blood pressures are acceptable and I am not making any changes to the current regimen of metoprolol and torsemide. 5. Morbid obesity complicates his care.
[2018-08-13] MEDS: traZODone 100 MG TAB PO SCH (21:25)
[2018-08-13 22:00] VITALS: BP 118/60
[2018-08-14 06:00] VITALS: BP 114/59
[2018-08-14 06:06] LABS: HEMATOCRIT 27.4 % (42.0-52.0); HEMOGLOBIN 8.6 g/dl (13.5-17.5); MEAN CORPUSCULAR HEMOGLOBIN 30.9 pg (27.0-33.0); MEAN CORPUSCULAR HGB CONC 31.4 g/dl (32.0-36.5); MEAN CORPUSCULAR VOLUME 98.6 fl (80.0-96.0); PLATELET COUNT, AUTOMATED 155 10^3/uL (150-450); RED BLOOD COUNT 2.78 10^6/uL (4.30-6.10); WHITE BLOOD COUNT 7.6 10^3/uL (4.0-10.0)
[2018-08-14 06:36] LABS: ALBUMIN 2.2 GM/DL (3.2-5.2); BILIRUBIN,TOTAL 0.2 MG/DL (0.2-1.0); CALCIUM LEVEL 8.4 MG/DL (8.8-10.2); CREATININE FOR GFR 2.42 MG/DL (0.70-1.30); GLOMERULAR FILTRATION RATE 29.1 (>49); POTASSIUM SERUM 4.2 MEQ/L (3.5-5.1); TOTAL PROTEIN 7.1 GM/DL (6.4-8.2)
[2018-08-14] MEDS: METOPROLOL TART 50 MG TAB PO SCH ×2 (09:05→21:56)
[2018-08-14] MEDS: SENOKOT S TAB PO SCH ×2 (09:05→21:54)
[2018-08-14] MEDS: (RENVELA) SEVELAMER **CARBONate** 800 MG TAB PO SCH ×3 (09:05→17:53)
[2018-08-14] MEDS: HEPARIN SOD (PORCINE) 5000 UNITS/ML VIAL SQ SCH ×2 (09:05→21:57)
[2018-08-14] MEDS: FLUoxetine 20 MG CAP PO SCH (09:05)
[2018-08-14] MEDS: TORSEMIDE 20 MG TAB PO SCH (09:06)
[2018-08-14] MEDS: POTASSIUM CHLORIDE 10 MEQ SR TABLET PO SCH (09:06)
[2018-08-14] MEDS: OMEPRAZOLE 20 MG CAP PO SCH (09:06)
[2018-08-14] MEDS: PREGABALIN 100 MG CAP (LYRICA) PO SCH ×2 (09:06→21:54)
[2018-08-14] MEDS: NYSTATIN 100,000 UNITS/GM TOPICAL PWD 15 GM TOP SCH ×2 (09:06→21:58)
--- NOTE | 2018-08-14 11:26 | IPNPDOC ---
Subjective Date Seen The patient was seen on 08/14/18. Subjective Chief Complaint/HPI Patient lying in bed comfortably, has no complaints. Was followed up by nephrology. Recently General: Denies: ROS Unobtainable, Chills, Night Sweats, Fatigue, Malaise, Normal Appetite, Other Symptoms Constitutional: Denies: Chills, Fever, Malaise, Night Sweats, Weakness, Fatigue, Weight Loss, Lethargy, Other Eyes: Denies: Pain, Vision change, Conjunctivae inflammation, Eyelid inflammation, Redness, Other ENT: Denies: Head Aches, Ear Pain, Dysphagia, Sinus Congestion, Post Nasal Drip, Sore Throat, Epistaxis, Other Symptoms Skin: Denies: Rash, Lesions, Jaundice, Bruising, Itching, Dry, Breakdown, Nail Changes, Other Pulmonary: Denies: Dyspnea, Cough, Pleuritic Chest Pain, Other Symptoms Cardiovascular: Denies: Chest Pain, Palpitations, Orthopnea, Paroxysmal Noc. Dyspnea, Edema, Lt Headedness, Other Symptoms Gastrointestinal: Denies: Nausea, Vomiting, Abdominal Pain, Diarrhea, Constipation, Melena, Hematochezia, Other Symptoms Musculoskeletal: Denies: Neck Pain, Back Pain, Shoulder Pain, Arm Pain, Hand Pain, Leg Pain, Foot Pain, Joint Pain, Muscle Pain, Spasms, Other Symptoms Neurological: Denies: Weakness, Numbness, Incoordination, Change in speech, Confusion, Seizures, Other Symptoms Psych: Denies: Mood Normal, Anxiety, Depression, Memory Issues, Thoughts of Self Harm, Anger, Thoughts of Harming Other, Other Psych Objective Physical Examination General Exam: Positive: Alert Eye Exam: Positive: Conjunctiva & lids normal ENT Exam: Positive: Atraumatic, Mucous membr. moist/pink Neck Exam: Positive: Supple Chest Exam: Positive: Clear to auscultation, Normal air movement Heart Exam: Positive: Rate Normal Telemetry: Positive: No significant arrhythmia Abdomen Exam: Positive: Normal bowel sounds Extremity Exam: Positive: Other (no edema) Skin Exam: Positive: Nl turgor and temperature Neuro Exam: Positive: Normal Speech Psych Exam: Positive: Mood NL Assessment /Plan Problems (1) CKD (chronic kidney disease), stage III Status: Chronic Problem Text: # General weakness and UTI - UTI was successfully treated with 7 day course of ceftriaxone. - He had dialysis yesterday, given rising BUN, and BUN has decreased today. - Continue to work with PT. PT recommends rehab. # End-stage renal disease, on hemodialysis. - Nephrology recommends dialysis at least once a week. - on renvela and torsemide. Torsemide dosage has been adjusted. -Will discuss with nephrology regarding the plan of care regarding hemodialysis as scheduled Once the HD schedule have been a certain then we will work on getting a placement for patient # Hypertension, CAD, PAD - Continue on home meds metoprolol - Cont. torsemide, cont. home meds # Left LE ulcer - wound care consulted. 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 - continued on home meds torsemide # Morbid obesity. - chronic # depression - continued home dose of prozac # constipation/bowel regimen - on senokot and miralax # insomnia - trazodone # Moderate protein calorie malnutrition - Continue to encourage PO intake. Disposition: waiting for placement providing dialysis. Plan/VTE VTE Prophylaxis Ordered?: Yes (heparin) [facility] Vital Signs Date Time Temp Pulse Resp B/P (MAP) Pulse Ox O2 Delivery O2 Flow Rate FiO2 08/14/18 09:05 64 114/59 08/14/18 06:00 97.4 19 96 I&O- Last 24 Hours up to 6 AM 08/14/18 06:00 Intake Total 2380 ml Output Total 2320 ml Balance 60 ml Laboratory Data 24H LABS Laboratory Tests 2 08/14/18 05:23: Nucleated Red Blood Cells % (auto) 0.0, Anion Gap 7L, Glomerular Filtration Rate 29.1L, Blood Urea Nitrogen 66H, Creatinine 2.42H, Sodium Level 138, Potassium Level 4.2, Chloride Level 99, Carbon Dioxide Level 32, Calcium Level 8.4L, Aspartate Amino Transf (AST/SGOT) 27, Alanine Aminotransferase (ALT/SGPT) 18, Alkaline Phosphatase 107, Total Bilirubin 0.2, Total Protein 7.1, Albumin 2.2L, Albumin/Globulin Ratio 0.45L CBC/BMP Laboratory Tests 08/14/18 05:23 Red Blood Count 2.78 L, Mean Corpuscular Volume 98.6 H, Mean Corpuscular Hemoglobin 30.9, Mean Corpuscular Hemoglobin Concent 31.4 L, Red Cell Distribution Width 15.9 H, Calcium Level 8.4 L, Aspartate Amino Transf (AST/SGOT) 27, Alanine Aminotransferase (ALT/SGPT) 18, Alkaline Phosphatase 107, Total Bilirubin 0.2, Total Protein 7.1, Albumin 2.2 L Microbiology Microbiology 08/04/18 Urine Culture - Final, Complete Klebsiella Pneumoniae ANUJ LUCERO MD Aug 14, 2018 11:26
[2018-08-14] MEDS ORDERED: HEPARIN 1,000 UNITS/ML 10ML VIAL (FOR RADIOLOGY& DIALYSIS ONLY) XX ONE (11:30)
[2018-08-14] MEDS ORDERED: HEPARIN 1,000 UNITS/ML 10ML VIAL (FOR RADIOLOGY& DIALYSIS ONLY) IV ONE (11:30)
[2018-08-14 14:00] VITALS: BP 138/63
[2018-08-14] MEDS: ACETAMINOPHEN 500 MG TAB PO PRN (21:54)
[2018-08-14] MEDS: traZODone 100 MG TAB PO SCH (21:55)
[2018-08-14 22:00] VITALS: BP 124/71
[2018-08-15 06:00] VITALS: BP 130/70
--- NOTE | 2018-08-15 06:15 | IPN ---
DATE OF SERVICE: 08/14/2018 SUBJECTIVE: Rocio was seen and examined this morning in the hemodialysis unit receiving treatment. Denies any acute overnight events or issues. PermaCath is in good use. He denies any chest pain or shortness of breath. Tolerating his treatment. Vital signs: Temperature 97.4, pulse 71, respiratory rate 16, blood pressure 138/63, saturating 95% on room air. Intake yesterday was 1940. Urine output today was 1800. Dialysis removed 1 liter. Weight in the bed scale today is not recorded. General: The patient is seen in the dialysis unit receiving his treatment. Awake, alert, oriented, comfortable, in no acute distress. Extraocular muscles are intact. Tongue is moist. Jugular veins are difficult to assess. The tunneled hemodialysis catheter in the right internal jugular (IJ) is currently in use. Cardiac: S1, S2, regular rate. There is no significant edema in the right lower extremity. The left lower extremity does have some dressings. Lungs: Shows distant breath sounds secondary to body habitus, otherwise clear to auscultation. No rale or rhonchus. Abdomen is soft and significantly obese. There are bowel sounds. Skin: There is a dressing over the left lower extremity. Wounds are not examined. Musculoskeletal: There is generalized weakness and deconditioning, and he is bedridden. LABS: White count 7.6, hemoglobin 8.6, platelet 155. Sodium 138, potassium 4.2, albumin 2.2. INPATIENT MEDICATIONS: Reviewed by myself and unchanged from prior. PROBLEMS: 1. End-stage renal disease on hemodialysis. He has not recovered enough renal function to come completely off of hemodialysis. I recommend that he will need two hemodialysis treatment per week as an outpatient upon discharge. For instance, he can be dialyzed on Mondays and Fridays or Tuesdays and Saturdays, etc, etc. He does have pretty good residual renal function with a glomerular filtration rate (GFR) of around 20 mL/min. He continues on oral torsemide. His electrolytes and volume status are optimized, and at present he is being dialyzed via PermaCath. 2. Anemia secondary to end-stage renal disease and iron deficiency. He was treated with renal for infusions earlier on this admission and he continues with Aranesp with hemodialysis. Hemoglobin is suboptimal but stable in the 8s. There is no need for transfusion at present time. 3. Hypertension. Blood pressures are acceptable and no changes are being made to the current regimen. 4. Morbid obesity and generalized deconditioning. Complicates his care and he is pending placement.
[2018-08-15] MEDS: HEPARIN SOD (PORCINE) 5000 UNITS/ML VIAL SQ SCH ×2 (09:00→21:41)
[2018-08-15] MEDS ORDERED: LACTULOSE 20 GM/30 ML SYRUP UD PO ONE (09:45)
[2018-08-15] MEDS: TORSEMIDE 20 MG TAB PO SCH (09:54)
[2018-08-15] MEDS: (RENVELA) SEVELAMER **CARBONate** 800 MG TAB PO SCH ×3 (09:54→17:03)
[2018-08-15] MEDS: POTASSIUM CHLORIDE 10 MEQ SR TABLET PO SCH (09:54)
[2018-08-15] MEDS: SENOKOT S TAB PO SCH ×2 (09:54→21:36)
[2018-08-15] MEDS: PREGABALIN 100 MG CAP (LYRICA) PO SCH ×2 (09:55→21:36)
[2018-08-15] MEDS: METOPROLOL TART 50 MG TAB PO SCH ×2 (09:55→21:38)
[2018-08-15] MEDS: OMEPRAZOLE 20 MG CAP PO SCH (09:55)
[2018-08-15] MEDS: FLUoxetine 20 MG CAP PO SCH (09:55)
[2018-08-15] MEDS: NYSTATIN 100,000 UNITS/GM TOPICAL PWD 15 GM TOP SCH ×2 (09:56→21:41)
--- NOTE | 2018-08-15 11:11 | IPNPDOC ---
Subjective Date Seen The patient was seen on 08/15/18. Subjective Chief Complaint/HPI Patient comfortable except he is complaining of constipation General: Denies: ROS Unobtainable, Chills, Night Sweats, Fatigue, Malaise, Normal Appetite, Other Symptoms Constitutional: Denies: Chills, Fever, Malaise, Night Sweats, Weakness, Fatigue, Weight Loss, Lethargy, Other Eyes: Denies: Pain, Vision change, Conjunctivae inflammation, Eyelid inflammation, Redness, Other ENT: Denies: Head Aches, Ear Pain, Dysphagia, Sinus Congestion, Post Nasal Drip, Sore Throat, Epistaxis, Other Symptoms Skin: Denies: Rash, Lesions, Jaundice, Bruising, Itching, Dry, Breakdown, Nail Changes, Other Pulmonary: Denies: Dyspnea, Cough, Pleuritic Chest Pain, Other Symptoms Cardiovascular: Denies: Chest Pain, Palpitations, Orthopnea, Paroxysmal Noc. Dyspnea, Edema, Lt Headedness, Other Symptoms Gastrointestinal: Reports: Constipation Musculoskeletal: Denies: Neck Pain, Back Pain, Shoulder Pain, Arm Pain, Hand Pain, Leg Pain, Foot Pain, Joint Pain, Muscle Pain, Spasms, Other Symptoms Neurological: Denies: Weakness, Numbness, Incoordination, Change in speech, Confusion, Seizures, Other Symptoms Psych: Denies: Mood Normal, Anxiety, Depression, Memory Issues, Thoughts of Self Harm, Anger, Thoughts of Harming Other, Other Psych Objective Physical Examination General Exam: Positive: Alert Eye Exam: Positive: Conjunctiva & lids normal ENT Exam: Positive: Atraumatic, Mucous membr. moist/pink Neck Exam: Positive: Supple Chest Exam: Positive: Clear to auscultation, Normal air movement Heart Exam: Positive: Rate Normal Telemetry: Positive: No significant arrhythmia Abdomen Exam: Positive: Normal bowel sounds Extremity Exam: Positive: Other (no edema) Skin Exam: Positive: Nl turgor and temperature Neuro Exam: Positive: Normal Speech Psych Exam: Positive: Mood NL Assessment /Plan Problems (1) CKD (chronic kidney disease), stage III Status: Chronic Problem Text: # General weakness and UTI - UTI was successfully treated with 7 day course of ceftriaxone. - He had dialysis yesterday, given rising BUN, and BUN has decreased today. - Continue to work with PT. PT recommends rehab. # End-stage renal disease, on hemodialysis. - Nephrology recommends dialysis at least once a week. - on renvela and torsemide. Torsemide dosage has been adjusted. -Will discuss with nephrology regarding the plan of care regarding hemodialysis as scheduled Discuss with Dr. Lovell patient probably needs 2 times a week hemodialysis Discussed with clinical social worker and case management. We'll try to arrange a placement in a facility. He can get dialysis done twice a week # Hypertension, CAD, PAD - Continue on home meds metoprolol - Cont. torsemide, cont. home meds # Left LE ulcer - wound care consulted. 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 - continued on home meds torsemide # Morbid obesity. - chronic # depression - continued home dose of prozac # constipation/bowel regimen - on senokot and miralax # insomnia - trazodone # Moderate protein calorie malnutrition - Continue to encourage PO intake. Disposition: waiting for placement providing dialysis. Plan/VTE VTE Prophylaxis Ordered?: Yes (heparin) VS, I&O, 24H, Fishbone Vital Signs/I&O Vital Signs Date Time Temp Pulse Resp B/P (MAP) Pulse Ox O2 Delivery O2 Flow Rate FiO2 08/15/18 09:55 60 130/70 08/15/18 06:00 98.0 19 96 I&O- Last 24 Hours up to 6 AM 08/15/18 06:00 Intake Total 1280 ml Output Total 1950 ml Balance -670 ml ANUJ LUCERO MD Aug 15, 2018 11:11
[2018-08-15 16:00] VITALS: BP 138/83
[2018-08-15] MEDS: SENNA 8.6 MG TAB (SENOKOT) PO PRN (21:36)
[2018-08-15] MEDS: traZODone 100 MG TAB PO SCH (21:36)
[2018-08-15 22:00] VITALS: BP 136/66
[2018-08-16 06:00] VITALS: BP 134/70
[2018-08-16 06:19] LABS: CALCIUM LEVEL 8.5 MG/DL (8.8-10.2); CREATININE FOR GFR 2.16 MG/DL (0.70-1.30); GLOMERULAR FILTRATION RATE 33.1 (>49); PHOSPHORUS LEVEL 4.8 MG/DL (2.5-4.9); POTASSIUM SERUM 4.4 MEQ/L (3.5-5.1)
[2018-08-16] MEDS: POTASSIUM CHLORIDE 10 MEQ SR TABLET PO SCH (08:31)
[2018-08-16] MEDS: TORSEMIDE 20 MG TAB PO SCH (08:31)
[2018-08-16] MEDS: PREGABALIN 100 MG CAP (LYRICA) PO SCH ×2 (08:31→22:21)
[2018-08-16] MEDS: FLUoxetine 20 MG CAP PO SCH (08:31)
[2018-08-16] MEDS: (RENVELA) SEVELAMER **CARBONate** 800 MG TAB PO SCH ×3 (08:31→18:15)
[2018-08-16] MEDS: SENOKOT S TAB PO SCH ×2 (08:32→22:21)
[2018-08-16] MEDS: METOPROLOL TART 50 MG TAB PO SCH ×2 (08:32→22:21)
[2018-08-16] MEDS: HEPARIN SOD (PORCINE) 5000 UNITS/ML VIAL SQ SCH ×2 (08:32→22:20)
[2018-08-16] MEDS: DIAPER RELIEF PASTE (DESITIN) 60GM TOP SCH (08:32)
[2018-08-16] MEDS: EUCERIN 120GM CREAM TOP SCH (08:32)
[2018-08-16] MEDS: OMEPRAZOLE 20 MG CAP PO SCH (08:32)
[2018-08-16] MEDS: NYSTATIN 100,000 UNITS/GM TOPICAL PWD 15 GM TOP SCH ×2 (08:33→22:22)
--- NOTE | 2018-08-16 11:39 | IPNPDOC ---
Subjective Date Seen The patient was seen on 08/16/18. Subjective Chief Complaint/HPI Patient had a bowel movement as per nursing and is not in any apparent distress. Offers no new complaints at the present time, awaiting placement General: Denies: ROS Unobtainable, Chills, Night Sweats, Fatigue, Malaise, No rmal Appetite, Other Symptoms Constitutional: Denies: Chills, Fever, Malaise, Night Sweats, Weakness, Fatigue, Weight Loss, Lethargy, Other Eyes: Denies: Pain, Vision change, Conjunctivae inflammation, Eyelid inflammation, Redness, Other ENT: Denies: Head Aches, Ear Pain, Dysphagia, Sinus Congestion, Post Nasal Drip, Sore Throat, Epistaxis, Other Symptoms Skin: Denies: Rash, Lesions, Jaundice, Bruising, Itching, Dry, Breakdown, Nail Changes, Other Pulmonary: Denies: Dyspnea, Cough, Pleuritic Chest Pain, Other Symptoms Cardiovascular: Denies: Chest Pain, Palpitations, Orthopnea, Paroxysmal Noc. Dyspnea, Edema, Lt Headedness, Other Symptoms Gastrointestinal: Denies: Nausea, Vomiting, Abdominal Pain, Diarrhea, Constipation, Melena, Hematochezia, Other Symptoms Genitourinary: Denies: Dysuria, Frequency, Incontinence, Hematuria, Retention, Other Symptoms Neurological: Denies: Weakness, Numbness, Incoordination, Change in speech, Confusion, Seizures, Other Symptoms Psych: Denies: Mood Normal, Anxiety, Depression, Memory Issues, Thoughts of Self Harm, Anger, Thoughts of Harming Other, Other Psych Objective Physical Examination General Exam: Positive: Alert Eye Exam: Positive: Conjunctiva & lids normal ENT Exam: Positive: Atraumatic, Mucous membr. moist/pink Neck Exam: Positive: Supple Chest Exam: Positive: Clear to auscultation, Normal air movement Heart Exam: Positive: Rate Normal Telemetry: Positive: No significant arrhythmia Abdomen Exam: Positive: Normal bowel sounds Extremity Exam: Positive: Other (no edema) Skin Exam: Positive: Nl turgor and temperature Neuro Exam: Positive: Normal Speech Psych Exam: Positive: Mood NL Assessment /Plan Problems (1) CKD (chronic kidney disease), stage III Status: Chronic Problem Text: # End-stage renal disease, on hemodialysis. - Nephrology recommends dialysis at least once a week. - on renvela and torsemide. Torsemide dosage has been adjusted. -Will discuss with nephrology regarding the plan of care regarding hemodialysis as scheduled Discuss with Dr. Lovell patient probably needs 2 times a week hemodialysis Discussed with social insurance specialist and case management. We'll try to arrange a placement in a facility. He can get dialysis done twice a week # Hypertension, CAD, PAD - Continue on home meds metoprolol - Cont. torsemide, cont. home meds # Left LE ulcer - wound care consulted. 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 - continued on home meds torsemide # Morbid obesity. - chronic # depression - continued home dose of prozac # constipation/bowel regimen - on senokot and miralax # insomnia - trazodone # Moderate protein calorie malnutrition - Continue to encourage PO intake. #, Constipation Resolved with senna and lactulose # General weakness and UTI - UTI was successfully treated with 7 day course of ceftriaxone. - He had dialysis yesterday, given rising BUN, and BUN has decreased today. - Continue to work with PT. PT recommends rehab. Disposition: waiting for placement providing dialysis. Plan/VTE VTE Prophylaxis Ordered?: Yes (heparin) VS, I&O, 24H, Fishbone Vital Signs/I&O Vital Signs Date Time Temp Pulse Resp B/P (MAP) Pulse Ox O2 Delivery O2 Flow Rate FiO2 08/16/18 08:32 73 134/70 08/16/18 06:00 98.3 17 93 I&O- Last 24 Hours up to 6 AM 08/16/18 06:00 Intake Total 1140 ml Output Total 1200 ml Balance -60 ml Laboratory Data 24H LABS Laboratory Tests 2 08/16/18 05:28: Anion Gap 5L, Glomerular Filtration Rate 33.1L, Blood Urea Nitrogen 44H, Creatinine 2.16H, Sodium Level 138, Potassium Level 4.4, Chloride Level 101, Carbon Dioxide Level 32, Calcium Level 8.5L, Phosphorus Level 4.8 CBC/BMP Laboratory Tests 08/16/18 05:28 Calcium Level 8.5 L ANUJ LUCERO MD Aug 16, 2018 11:39
[2018-08-16 14:00] VITALS: BP 115/58
[2018-08-16 22:00] VITALS: BP 133/70
[2018-08-16] MEDS: traZODone 100 MG TAB PO SCH (22:21)
[2018-08-16] MEDS: SENNA 8.6 MG TAB (SENOKOT) PO PRN (22:26)
[2018-08-17 06:00] VITALS: BP 134/75
[2018-08-17] MEDS: SENOKOT S TAB PO SCH ×2 (07:32→23:07)
[2018-08-17] MEDS: (RENVELA) SEVELAMER **CARBONate** 800 MG TAB PO SCH ×3 (07:32→17:15)
[2018-08-17] MEDS: PREGABALIN 100 MG CAP (LYRICA) PO SCH ×2 (07:32→23:07)
[2018-08-17] MEDS: HEPARIN SOD (PORCINE) 5000 UNITS/ML VIAL SQ SCH ×2 (07:32→23:09)
[2018-08-17] MEDS: FLUoxetine 20 MG CAP PO SCH (07:32)
[2018-08-17] MEDS: METOPROLOL TART 50 MG TAB PO SCH ×2 (07:33→23:09)
[2018-08-17] MEDS: OMEPRAZOLE 20 MG CAP PO SCH (07:33)
[2018-08-17] MEDS: POTASSIUM CHLORIDE 10 MEQ SR TABLET PO SCH (07:33)
[2018-08-17] MEDS: NYSTATIN 100,000 UNITS/GM TOPICAL PWD 15 GM TOP SCH ×2 (07:34→23:08)
[2018-08-17] MEDS: TORSEMIDE 20 MG TAB PO SCH (07:34)
--- NOTE | 2018-08-17 11:20 | IPNPDOC ---
Subjective Date Seen The patient was seen on 08/17/18. Subjective Chief Complaint/HPI Patient is getting ready for dialysis today in no distress. Offers no new complaints General: Denies: ROS Unobtainable, Chills, Night Sweats, Fatigue, Malaise, Normal Appetite, Other Symptoms Constitutional: Denies: Chills, Fever, Malaise, Night Sweats, Weakness, Fatigue, Weight Loss, Lethargy, Other Eyes: Denies: Pain, Vision change, Conjunctivae inflammation, Eyelid inflammation, Redness, Other ENT: Denies: Head Aches, Ear Pain, Dysphagia, Sinus Congestion, Post Nasal Drip, Sore Throat, Epistaxis, Other Symptoms Skin: Denies: Rash, Lesions, Jaundice, Bruising, Itching, Dry, Breakdown, Nail Changes, Other Pulmonary: Denies: Dyspnea, Cough, Pleuritic Chest Pain, Other Symptoms Cardiovascular: Denies: Chest Pain, Palpitations, Orthopnea, Paroxysmal Noc. Dyspnea, Edema, Lt Headedness, Other Symptoms Gastrointestinal: Denies: Nausea, Vomiting, Abdominal Pain, Diarrhea, Constipation, Melena, Hematochezia, Other Symptoms Neurological: Denies: Weakness, Numbness, Incoordination, Change in speech, Confusion, Seizures, Other Symptoms Psych: Denies: Mood Normal, Anxiety, Depression, Memory Issues, Thoughts of Self Harm, Anger, Thoughts of Harming Other, Other Psych Objective Physical Examination General Exam: Positive: Alert Eye Exam: Positive: Conjunctiva & lids normal ENT Exam: Positive: Atraumatic, Mucous membr. moist/pink Neck Exam: Positive: Supple Chest Exam: Positive: Clear to auscultation, Normal air movement Heart Exam: Positive: Rate Normal Telemetry: Positive: No significant arrhythmia Abdomen Exam: Positive: Normal bowel sounds Extremity Exam: Positive: Other (no edema) Skin Exam: Positive: Nl turgor and temperature Neuro Exam: Positive: Normal Speech Psych Exam: Positive: Mood NL Assessment /Plan Problems (1) CKD (chronic kidney disease), stage III Status: Chronic Problem Text: # End-stage renal disease, on hemodialysis. - Nephrology recommends dialysis at least once a week. - on renvela and torsemide. Torsemide dosage has been adjusted. -Will discuss with nephrology regarding the plan of care regarding hemodialysis as scheduled Discuss with Dr. Lovell patient probably needs 2 times a week hemodialysis Discussed with social media content specialist and case management. We'll try to arrange a placement in a facility. He can get dialysis done twice a week Patient is getting a hemodialysis done today. Awaiting for placement # Hypertension, CAD, PAD - Continue on home meds metoprolol - Cont. torsemide, cont. home meds # Left LE ulcer - wound care consulted. 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 - continued on home meds torsemide # Morbid obesity. - chronic # depression - continued home dose of prozac # constipation/bowel regimen - on senokot and miralax # insomnia - trazodone # Moderate protein calorie malnutrition - Continue to encourage PO intake. #, Constipation Resolved with senna and lactulose # General weakness and UTI - UTI was successfully treated with 7 day course of ceftriaxone. - He had dialysis yesterday, given rising BUN, and BUN has decreased today. - Continue to work with PT. PT recommends rehab. Disposition: waiting for placement providing dialysis. Plan/VTE VTE Prophylaxis Ordered?: Yes (heparin) VS, I&O, 24H, Fishbone Vital Signs/I&O Vital Signs Date Time Temp Pulse Resp B/P (MAP) Pulse Ox O2 Delivery O2 Flow Rate FiO2 08/17/18 07:33 68 134/75 08/17/18 06:00 98.2 17 98 I&O- Last 24 Hours up to 6 AM 08/17/18 06:00 Intake Total 1320 ml Output Total 2100 ml Balance -780 ml ANUJ LUCERO MD Aug 17, 2018 11:20
[2018-08-17] MEDS ORDERED: HEPARIN 1,000 UNITS/ML 10ML VIAL (FOR RADIOLOGY& DIALYSIS ONLY) IV ONE (11:45)
[2018-08-17] MEDS ORDERED: HEPARIN 1,000 UNITS/ML 10ML VIAL (FOR RADIOLOGY& DIALYSIS ONLY) XX ONE (11:45)
[2018-08-17 14:00] VITALS: BP 124/63
[2018-08-17 22:00] VITALS: BP 141/63
[2018-08-17] MEDS: traZODone 100 MG TAB PO SCH (23:08)
[2018-08-17] MEDS: SENNA 8.6 MG TAB (SENOKOT) PO PRN (23:08)
[2018-08-18 06:00] VITALS: BP 114/61
[2018-08-18 06:40] LABS: CALCIUM LEVEL 8.4 MG/DL (8.8-10.2); CREATININE FOR GFR 1.68 MG/DL (0.70-1.30); GLOMERULAR FILTRATION RATE 44.3 (>49); POTASSIUM SERUM 4.5 MEQ/L (3.5-5.1)
[2018-08-18] MEDS: FLUoxetine 20 MG CAP PO SCH (09:41)
[2018-08-18] MEDS: POTASSIUM CHLORIDE 10 MEQ SR TABLET PO SCH (09:41)
[2018-08-18] MEDS: (RENVELA) SEVELAMER **CARBONate** 800 MG TAB PO SCH ×3 (09:41→17:17)
[2018-08-18] MEDS: SENOKOT S TAB PO SCH ×2 (09:42→20:43)
[2018-08-18] MEDS: PREGABALIN 100 MG CAP (LYRICA) PO SCH ×2 (09:42→20:45)
[2018-08-18] MEDS: OMEPRAZOLE 20 MG CAP PO SCH (09:43)
[2018-08-18] MEDS: METOPROLOL TART 50 MG TAB PO SCH ×2 (09:43→20:45)
[2018-08-18] MEDS: HEPARIN SOD (PORCINE) 5000 UNITS/ML VIAL SQ SCH ×2 (09:43→20:43)
[2018-08-18] MEDS: TORSEMIDE 20 MG TAB PO SCH (09:43)
[2018-08-18] MEDS: NYSTATIN 100,000 UNITS/GM TOPICAL PWD 15 GM TOP SCH ×2 (09:45→20:45)
--- NOTE | 2018-08-18 11:49 | IPNPDOC ---
Subjective Date Seen The patient was seen on 08/18/18. Subjective Chief Complaint/HPI No new complaints at the present time lying down in bed comfortably General: Denies: ROS Unobtainable, Chills, Night Sweats, Fatigue, Malaise, Normal Appetite, Other Symptoms Constitutional: Denies: Chills, Fever, Malaise, Night Sweats, Weakness, Fatigue, Weight Loss, Lethargy, Other Eyes: Denies: Pain, Vision change, Conjunctivae inflammation, Eyelid inflammation, Redness, Other ENT: Denies: Head Aches, Ear Pain, Dysphagia, Sinus Congestion, Post Nasal Drip, Sore Throat, Epistaxis, Other Symptoms Skin: Denies: Rash, Lesions, Jaundice, Bruising, Itching, Dry, Breakdown, Nail Changes, Other Pulmonary: Denies: Dyspnea, Cough, Pleuritic Chest Pain, Other Symptoms Cardiovascular: Denies: Chest Pain, Palpitations, Orthopnea, Paroxysmal Noc. Dyspnea, Edema, Lt Headedness, Other Symptoms Musculoskeletal: Denies: Neck Pain, Back Pain, Shoulder Pain, Arm Pain, Hand Pain, Leg Pain, Foot Pain, Joint Pain, Muscle Pain, Spasms, Other Symptoms Neurological: Denies: Weakness, Numbness, Incoordination, Change in speech, Confusion, Seizures, Other Symptoms Objective Physical Examination General Exam: Positive: Alert Eye Exam: Positive: Conjunctiva & lids normal ENT Exam: Positive: Atraumatic, Mucous membr. moist/pink Neck Exam: Positive: Supple Chest Exam: Positive: Clear to auscultation, Normal air movement Heart Exam: Positive: Rate Normal Telemetry: Positive: No significant arrhythmia Abdomen Exam: Positive: Normal bowel sounds Extremity Exam: Positive: Other (no edema) Skin Exam: Positive: Nl turgor and temperature Neuro Exam: Positive: Normal Speech Psych Exam: Positive: Mood NL Assessment /Plan Problems (1) CKD (chronic kidney disease), stage III Status: Chronic Problem Text: # End-stage renal disease, on hemodialysis. - Nephrology recommends dialysis at least once a week. - on renvela and torsemide. Torsemide dosage has been adjusted. -Will discuss with nephrology regarding the plan of care regarding hemodialysis as scheduled Discuss with Dr. Lovell patient probably needs 2 times a week hemodialysis Discussed with case management social worker and case management. We'll try to arrange a placement in a facility. He can get dialysis done twice a week Patient received hemodialysis yesterday He is awaiting placement. [facility] with [facility] facility availability # Hypertension, CAD, PAD - Continue on home meds metoprolol - Cont. torsemide, cont. home meds # Left LE ulcer - wound care consulted. 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 - continued on home meds torsemide # Morbid obesity. - chronic # depression - continued home dose of prozac # constipation/bowel regimen - on senokot and miralax # insomnia - trazodone # Moderate protein calorie malnutrition - Continue to encourage PO intake. #, Constipation Resolved with senna and lactulose # General weakness and UTI - UTI was successfully treated with 7 day course of ceftriaxone. - He had dialysis yesterday, given rising BUN, and BUN has decreased today. - Continue to work with PT. PT recommends rehab. Disposition: waiting for placement providing dialysis. Plan/VTE VTE Prophylaxis Ordered?: Yes (heparin) VS, I&O, 24H, Fishbone Vital Signs/I&O Vital Signs Date Time Temp Pulse Resp B/P (MAP) Pulse Ox O2 Delivery O2 Flow Rate FiO2 08/18/18 09:43 74 114/61 08/18/18 06:00 97.0 17 98 I&O- Last 24 Hours up to 6 AM 08/18/18 06:00 Intake Total 2200 ml Output Total 1375 ml Balance 825 ml Laboratory Data 24H LABS Laboratory Tests 2 08/18/18 05:55: Anion Gap 5L, Glomerular Filtration Rate 44.3L, Blood Urea Nitrogen 30H, Creatinine 1.68H, Sodium Level 138, Potassium Level 4.5, Chloride Level 102, Carbon Dioxide Level 31, Calcium Level 8.4L CBC/BMP Laboratory Tests 08/18/18 05:55 Calcium Level 8.4 L ANUJ LUCERO MD Aug 18, 2018 11:49
[2018-08-18 14:00] VITALS: BP 132/69
--- NOTE | 2018-08-18 15:01 | IPN ---
DATE: 08/18/2018 SUBJECTIVE The patient was seen and examined at the bedside today morning. He afebrile, hemodynamically stable. He was dialyzed yesterday. 1 liter of fluid was removed. OBJECTIVE Vital signs: Temperature is 97 degrees Fahrenheit. Blood pressure 114/61, pulse is 63, respiratory rate of 17, saturating 98% on room air. Intake and output: Urine output recorded as 175 mL. Ultrafiltration was 1 liter. Weight in the bed scale is not available. PHYSICAL EXAMINATION General: The patient is awake, alert, oriented times, three, morbidly obese, laying in bed, in no apparent distress. Head and neck examination: Extraocular muscles intact. Pupils equally round and reactive to light. Neck is supple. He has a right IJ tunneled hemodialysis catheter. Cardiovascular: S1, S2, regular rate. Trace edema of the bilateral lower extremities. Respiratory: Chest is clear to auscultation bilaterally. Bilateral equal air entry. No rales or rhonchi. Abdomen: Soft, obese, positive bowel sounds. Nontender. No organomegaly. Musculoskeletal: The patient has decreased range of movement of the lower extremities. He is chronically bedridden. He has dressing on the left leg. HOROLOGIST: No focal deficit. Power is 5/5 in bilateral upper extremities. LAB REVIEW: CBC showed a WBC of 7.6, hemoglobin 8.6 and that was on August 14. BMP done today morning showed sodium 138, potassium 4.5, chloride 102, bicarb 31, BUN 30, creatinine is 1.6. CURRENT MEDICATIONS: The patient's medications were all reviewed by me. There is no change in the medications today as compared with yesterday. ASSESSMENT/PLAN 1. End-stage renal disease on hemodialysis. The patient has good residual renal function. He is requiring only twice a week dialysis, Monday and Monday only. Continue the diuretics for optimization of fluid status. 2. Anemia and end-stage renal disease. The patient is receiving Aranesp with hemodialysis. Last hemoglobin was checked on August 14. Next lab will be checked on Monday before dialysis. 3. Bilateral venous stasis and lower extremity edema. Continue current dose of torsemide and potassium. We also removed fluid during dialysis. Volume status is optimal now.
[2018-08-18] MEDS: ACETAMINOPHEN 500 MG TAB PO PRN (15:51)
[2018-08-18] MEDS: traZODone 100 MG TAB PO SCH (20:44)
[2018-08-18] MEDS: SENNA 8.6 MG TAB (SENOKOT) PO PRN (20:44)
[2018-08-18 22:00] VITALS: BP 125/67
[2018-08-19 06:00] VITALS: BP 133/70
[2018-08-19] MEDS: HEPARIN SOD (PORCINE) 5000 UNITS/ML VIAL SQ SCH ×2 (08:51→22:28)
[2018-08-19] MEDS: (RENVELA) SEVELAMER **CARBONate** 800 MG TAB PO SCH ×3 (08:51→18:08)
[2018-08-19] MEDS: TORSEMIDE 20 MG TAB PO SCH (08:52)
[2018-08-19] MEDS: OMEPRAZOLE 20 MG CAP PO SCH (08:52)
[2018-08-19] MEDS: POTASSIUM CHLORIDE 10 MEQ SR TABLET PO SCH (08:52)
[2018-08-19] MEDS: METOPROLOL TART 50 MG TAB PO SCH ×2 (08:52→22:29)
[2018-08-19] MEDS: FLUoxetine 20 MG CAP PO SCH (08:52)
[2018-08-19] MEDS: SENOKOT S TAB PO SCH ×2 (08:52→22:28)
[2018-08-19] MEDS: PREGABALIN 100 MG CAP (LYRICA) PO SCH ×2 (08:52→22:29)
[2018-08-19] MEDS: NYSTATIN 100,000 UNITS/GM TOPICAL PWD 15 GM TOP SCH ×2 (08:53→22:30)
--- NOTE | 2018-08-19 11:06 | IPNPDOC ---
Subjective Date Seen The patient was seen on 08/19/18. Subjective Chief Complaint/HPI Patient comfortable lying in bed. Offers no new complaints General: Denies: ROS Unobtainable, Chills, Night Sweats, Fatigue, Malaise, Normal Appetite, Other Symptoms Constitutional: Denies: Chills, Fever, Malaise, Night Sweats, Weakness, Fatigue, Weight Loss, Lethargy, Other Eyes: Denies: Pain, Vision change, Conjunctivae inflammation, Eyelid inflammation, Redness, Other ENT: Denies: Head Aches, Ear Pain, Dysphagia, Sinus Congestion, Post Nasal Drip, Sore Throat, Epistaxis, Other Symptoms Skin: Denies: Rash, Lesions, Jaundice, Bruising, Itching, Dry, Breakdown, Nail Changes, Other Pulmonary: Denies: Dyspnea, Cough, Pleuritic Chest Pain, Other Symptoms Cardiovascular: Denies: Chest Pain, Palpitations, Orthopnea, Paroxysmal Noc. Dyspnea, Edema, Lt Headedness, Other Symptoms Gastrointestinal: Denies: Nausea, Vomiting, Abdominal Pain, Diarrhea, Constipation, Melena, Hematochezia, Other Symptoms Musculoskeletal: Denies: Neck Pain, Back Pain, Shoulder Pain, Arm Pain, Hand Pain, Leg Pain, Foot Pain, Joint Pain, Muscle Pain, Spasms, Other Symptoms Neurological: Denies: Weakness, Numbness, Incoordination, Change in speech, Confusion, Seizures, Other Symptoms Objective Physical Examination General Exam: Positive: Alert Eye Exam: Positive: Conjunctiva & lids normal ENT Exam: Positive: Atraumatic, Mucous membr. moist/pink Neck Exam: Positive: Supple Chest Exam: Positive: Clear to auscultation, Normal air movement Heart Exam: Positive: Rate Normal Telemetry: Positive: No significant arrhythmia Abdomen Exam: Positive: Normal bowel sounds Extremity Exam: Positive: Other (no edema) Skin Exam: Positive: Nl turgor and temperature Neuro Exam: Positive: Normal Speech Psych Exam: Positive: Mood NL Assessment /Plan Problems (1) CKD (chronic kidney disease), stage III Status: Chronic Problem Text: # End-stage renal disease, on hemodialysis. - Nephrology recommends dialysis at least once a week. - on renvela and torsemide. Torsemide dosage has been adjusted. -Will discuss with nephrology regarding the plan of care regarding hemodialysis as scheduled Discuss with Dr. Lovell patient probably needs 2 times a week hemodialysis Discussed with social work administrator and case management. We'll try to arrange a placement in a facility. He can get dialysis done twice a week Patient received hemodialysis yesterday He is awaiting placement. Transferred to custodial facility with hemodialysis facility availability # Hypertension, CAD, PAD - Continue on home meds metoprolol - Cont. torsemide, cont. home meds # Left LE ulcer - wound care consulted. 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 - continued on home meds torsemide # Morbid obesity. - chronic # depression - continued home dose of prozac # constipation/bowel regimen - on senokot and miralax # insomnia - trazodone # Moderate protein calorie malnutrition - Continue to encourage PO intake. #, Constipation Resolved with senna and lactulose # General weakness and UTI - UTI was successfully treated with 7 day course of ceftriaxone. - He had dialysis yesterday, given rising BUN, and BUN has decreased today. - Continue to work with PT. PT recommends rehab. Disposition: waiting for placement providing dialysis. Plan/VTE VTE Prophylaxis Ordered?: Yes (heparin) VS, I&O, 24H, Fishbone Vital Signs/I&O Vital Signs Date Time Temp Pulse Resp B/P (MAP) Pulse Ox O2 Delivery O2 Flow Rate FiO2 08/19/18 08:52 56 133/70 08/19/18 06:00 97.1 19 96 I&O- Last 24 Hours up to 6 AM 08/19/18 06:00 Intake Total 1740 ml Output Total 1600 ml Balance 140 ml ANUJ LUCERO MD Aug 19, 2018 11:06
[2018-08-19 14:00] VITALS: BP 121/73
--- NOTE | 2018-08-19 16:29 | IPN ---
DATE: 08/19/2018 SUBJECTIVE: Patient was seen and examined at the bedside today morning. He is afebrile, hemodynamically stable. He denies any active complaints. There are no labs done today. OBJECTIVE: VITAL SIGNS: Temperature is 97.1 degrees Fahrenheit, blood pressure 133/70, pulse 56, respiratory rate of 90, saturating 96% on room air. INTAKE AND OUTPUT: Urine output recorded is 300 mL so far since overnight. Weight in the bed scale is not available. PHYSICAL EXAMINATION: GENERAL: Patient is awake, alert, oriented times, morbidly obese, laying in bed. No apparent distress. HEAD AND NECK EXAM: Extraocular muscles intact. Pupils equally round and reactive to light. Mucous membranes are moist. Neck is supple. She has a right internal jugular (IJ) tunneled hemodialysis catheter. CARDIOVASCULAR: S1, S2. Regular rate. Trace edema of the bilateral lower extremities. RESPIRATORY: Chest is clear to auscultation bilaterally. ABDOMEN: Soft, obese, positive bowel sounds. Nontender. MUSCULOSKELETAL: Decreased range of movement of bilateral lower extremities. CENTRAL NERVOUS SYSTEM (TEST ENGINE MECHANIC): No focal deficit. Patient moves bilateral upper extremities. He is chronically bedridden. LABORATORY REVIEW: Complete blood count (CBC) and Basic metabolic panel (BMP) are from yesterday. No labs available today. Next labs will be drawn tomorrow morning. ASSESSMENT AND PLAN: 1. End-stage renal disease on hemodialysis. Patient is being dialyzed twice a week, Monday and Monday. He will be dialyzed tomorrow morning. Patient has some residue renal function. 2. Anemia in end-stage renal disease. Continue current dose of Aranesp. Check CBC in the morning. 3. Lower extremity edema. Volume status is being optimized with dialysis. Patient is also getting torsemide 40 mg by mouth daily.
[2018-08-19 22:00] VITALS: BP 120/60
[2018-08-19] MEDS: traZODone 100 MG TAB PO SCH (22:29)
[2018-08-20 06:00] VITALS: BP 123/64
[2018-08-20 06:16] LABS: BASO % 0.5 % (0.0-1.0); EOS # 0.5 10^3/uL (0.0-0.50); EOS % 6.4 % (0.0-3.0); HEMATOCRIT 29.4 % (42.0-52.0); HEMOGLOBIN 9.2 g/dl (13.5-17.5); LYMPH # 1.8 10^3/uL (1.5-4.5); LYMPH % 23.9 % (24.0-44.0); MEAN CORPUSCULAR HEMOGLOBIN 31.9 pg (27.0-33.0); MEAN CORPUSCULAR HGB CONC 31.3 g/dl (32.0-36.5); MEAN CORPUSCULAR VOLUME 102.1 fl (80.0-96.0); MONO # 0.5 10^3/uL (0.0-0.8); MONO % 6.5 % (0.0-5.0); NEUTROPHILS # 4.8 10^3/uL (1.8-7.7); NEUTROPHILS % 62.2 % (36.0-66.0); PLATELET COUNT, AUTOMATED 139 10^3/uL (150-450); RED BLOOD COUNT 2.88 10^6/uL (4.30-6.10); WHITE BLOOD COUNT 7.7 10^3/uL (4.0-10.0)
[2018-08-20 06:40] LABS: ALBUMIN 2.4 GM/DL (3.2-5.2); CALCIUM LEVEL 8.8 MG/DL (8.8-10.2); CREATININE FOR GFR 2.46 MG/DL (0.70-1.30); GLOMERULAR FILTRATION RATE 28.5 (>49); PHOSPHORUS LEVEL 4.4 MG/DL (2.5-4.9)
[2018-08-20] MEDS: METOPROLOL TART 50 MG TAB PO SCH ×2 (08:21→20:45)
[2018-08-20] MEDS: (RENVELA) SEVELAMER **CARBONate** 800 MG TAB PO SCH ×3 (08:22→17:43)
[2018-08-20] MEDS: SENOKOT S TAB PO SCH ×2 (08:22→20:44)
[2018-08-20] MEDS: POTASSIUM CHLORIDE 10 MEQ SR TABLET PO SCH (08:22)
[2018-08-20] MEDS: PREGABALIN 100 MG CAP (LYRICA) PO SCH ×2 (08:23→20:44)
[2018-08-20] MEDS: TORSEMIDE 20 MG TAB PO SCH (08:24)
[2018-08-20] MEDS: OMEPRAZOLE 20 MG CAP PO SCH (08:24)
[2018-08-20] MEDS: FLUoxetine 20 MG CAP PO SCH (08:24)
[2018-08-20] MEDS: DIAPER RELIEF PASTE (DESITIN) 60GM TOP SCH (08:26)
[2018-08-20] MEDS: NYSTATIN 100,000 UNITS/GM TOPICAL PWD 15 GM TOP SCH ×2 (08:26→20:45)
[2018-08-20] MEDS: HEPARIN SOD (PORCINE) 5000 UNITS/ML VIAL SQ SCH ×2 (08:26→20:44)
[2018-08-20] MEDS: EUCERIN 120GM CREAM TOP SCH (08:27)
--- NOTE | 2018-08-20 11:37 | IPNPDOC ---
Subjective Date Seen The patient was seen on 08/20/18. Subjective Chief Complaint/HPI Patient comfortable offers no new complaints, awaiting placement in assisted General: Denies: ROS Unobtainable, Chills, Night Sweats, Fatigue, Malaise, Normal Appetite, Other Symptoms Constitutional: Denies: Chills, Fever, Malaise, Night Sweats, Weakness, Fatigue, Weight Loss, Lethargy, Other Eyes: Denies: Pain, Vision change, Conjunctivae inflammation, Eyelid inflammation, Redness, Other ENT: Denies: Head Aches, Ear Pain, Dysphagia, Sinus Congestion, Post Nasal Drip, Sore Throat, Epistaxis, Other Symptoms Skin: Denies: Rash, Lesions, Jaundice, Bruising, Itching, Dry, Breakdown, Nail Changes, Other Pulmonary: Denies: Dyspnea, Cough, Pleuritic Chest Pain, Other Symptoms Cardiovascular: Denies: Chest Pain, Palpitations, Orthopnea, Paroxysmal Noc. Dyspnea, Edema, Lt Headedness, Other Symptoms Gastrointestinal: Denies: Nausea, Vomiting, Abdominal Pain, Diarrhea, Constipation, Melena, Hematochezia, Other Symptoms Musculoskeletal: Denies: Neck Pain, Back Pain, Shoulder Pain, Arm Pain, Hand Pain, Leg Pain, Foot Pain, Joint Pain, Muscle Pain, Spasms, Other Symptoms Neurological: Denies: Weakness, Numbness, Incoordination, Change in speech, Confusion, Seizures, Other Symptoms Objective Physical Examination General Exam: Positive: Alert Chest Exam: Positive: Clear to auscultation, Normal air movement Heart Exam: Positive: Rate Normal Telemetry: Positive: No significant arrhythmia Abdomen Exam: Positive: Normal bowel sounds Extremity Exam: Positive: Other (no edema) Assessment /Plan Problems (1) CKD (chronic kidney disease), stage III Status: Chronic Problem Text: # End-stage renal disease, on hemodialysis. - Nephrology recommends dialysis at least once a week. - on renvela and torsemide. Torsemide dosage has been adjusted. -Will discuss with nephrology regarding the plan of care regarding hemodialysis as scheduled Discuss with Dr. Lovell patient probably needs 2 times a week hemodialysis Discussed with social secretary and case management. We'll try to arrange a placement in a facility. He can get dialysis done twice a week Patient received hemodialysis on Monday, He gets dialyzed on Monday and Monday. Nephro follow-up appreciated Awaiting placement in a detention facility. Patient will be changed to alternate level of care today Transferred to detention facility with hemodialysis facility availability # Hypertension, CAD, PAD - Continue on home meds metoprolol - Cont. torsemide, cont. home meds # Left LE ulcer - wound care consulted. 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 - continued on home meds torsemide # Morbid obesity. - chronic # depression - continued home dose of prozac # constipation/bowel regimen - on senokot and miralax # insomnia - trazodone # Moderate protein calorie malnutrition - Continue to encourage PO intake. #, Constipation Resolved with senna and lactulose # General weakness and UTI - UTI was successfully treated with 7 day course of ceftriaxone. - He had dialysis yesterday, given rising BUN, and BUN has decreased today. - Continue to work with PT. PT recommends rehab. Disposition: waiting for placement providing dialysis. Plan/VTE VTE Prophylaxis Ordered?: Yes (heparin) VS, I&O, 24H, Fishbone Vital Signs/I&O Vital Signs Date Time Temp Pulse Resp B/P (MAP) Pulse Ox O2 Delivery O2 Flow Rate FiO2 08/20/18 08:21 68 123/64 08/20/18 06:00 97.0 20 94 I&O- Last 24 Hours up to 6 AM 08/20/18 06:00 Intake Total 1647 ml Output Total 1925 ml Balance -278 ml Laboratory Data 24H LABS Laboratory Tests 2 08/20/18 05:22: Immature Granulocyte % (Auto) 0.5, White Blood Count 7.7, Red Blood Count 2.88L, Hemoglobin 9.2L, Hematocrit 29.4L, Mean Corpuscular Volume 102.1H, Mean Corpuscular Hemoglobin 31.9, Mean Corpuscular Hemoglobin Concent 31.3L, Red Cell Distribution Width 16.4H, Platelet Count 139L, Neutrophils (%) (Auto) 62.2, Lymphocytes (%) (Auto) 23.9L, Monocytes (%) (Auto) 6.5H, Eosinophils (%) (Auto) 6.4H, Basophils (%) (Auto) 0.5, Neutrophils # (Auto) 4.8, Lymphocytes # (Auto) 1.8, Monocytes # (Auto) 0.5, Eosinophils # (Auto) 0.5, Basophils # (Auto) 0.0, Nucleated Red Blood Cells % (auto) 0.0, Blood Urea Nitrogen 57#H, Creatinine 2.46H, Sodium Level 138, Potassium Level 4.0, Chloride Level 102, Carbon Dioxide Level 30, Anion Gap 6L, Glomerular Filtration Rate 28.5L, Calcium Level 8.8, Phosphorus Level 4.4, Albumin 2.4L CBC/BMP Laboratory Tests 08/20/18 05:22 Red Blood Count 2.88 L, Mean Corpuscular Volume 102.1 H, Mean Corpuscular Hemoglobin 31.9, Mean Corpuscular Hemoglobin Concent 31.3 L, Red Cell Distribution Width 16.4 H, Neutrophils (%) (Auto) 62.2, Lymphocytes (%) (Auto) 23.9 L, Monocytes (%) (Auto) 6.5 H, Eosinophils (%) (Auto) 6.4 H, Basophils (%) (Auto) 0.5, Neutrophils # (Auto) 4.8, Lymphocytes # (Auto) 1.8, Monocytes # (Auto) 0.5, Eosinophils # (Auto) 0.5, Basophils # (Auto) 0.0, Anion Gap 6 L ANUJ LUCERO MD Aug 20, 2018 11:37
[2018-08-20 14:00] VITALS: BP_SYST 126; BP_DIAS 65; BP_DIAS 82
[2018-08-20] MEDS: traZODone 100 MG TAB PO SCH (20:44)
[2018-08-20 22:00] VITALS: BP 110/58
[2018-08-21] MEDS: HEPARIN SOD (PORCINE) 5000 UNITS/ML VIAL SQ SCH ×2 (05:56→21:00)
[2018-08-21] MEDS: SENOKOT S TAB PO SCH ×2 (05:57→21:00)
[2018-08-21] MEDS: (RENVELA) SEVELAMER **CARBONate** 800 MG TAB PO SCH ×3 (05:57→17:42)
[2018-08-21] MEDS: METOPROLOL TART 50 MG TAB PO SCH ×2 (05:58→21:00)
[2018-08-21] MEDS: PREGABALIN 100 MG CAP (LYRICA) PO SCH ×2 (05:59→21:01)
[2018-08-21] MEDS: OMEPRAZOLE 20 MG CAP PO SCH (05:59)
[2018-08-21] MEDS: FLUoxetine 20 MG CAP PO SCH (05:59)
[2018-08-21 06:00] VITALS: BP 132/80
[2018-08-21] MEDS: POTASSIUM CHLORIDE 10 MEQ SR TABLET PO SCH (06:00)
[2018-08-21] MEDS: TORSEMIDE 20 MG TAB PO SCH (06:00)
[2018-08-21] MEDS: NYSTATIN 100,000 UNITS/GM TOPICAL PWD 15 GM TOP SCH ×2 (06:01→21:02)
--- NOTE | 2018-08-21 06:22 | IPN ---
DATE OF VISIT: 08/20/2018 SUBJECTIVE: The patient was seen and examined at the bedside today morning. He is afebrile, and hemodynamically stable. He denies any active complaints. He made more than 1 liter of urine yesterday. He continues to be bedridden. OBJECTIVE: Vital signs: Temperature is 97.8 degrees Fahrenheit, blood pressure 126/82, pulse is 73, respiratory of 18, saturating 97% on room air. Intake and output: Urine output recorded is 1.1 liters yesterday, 1.6 liters so far today since overnight. Weight in the bed scale is not available. PHYSICAL EXAMINATION: General: The patient is awake, alert, oriented times three, morbidly obese, laying in bed in no apparent distress. Head and neck exam: Extraocular muscles intact. Pupils equally round and reactive to light. Mucous membranes are moist. Neck: Neck is supple. Right internal jugular (IJ) tunneled hemodialysis catheter was noted. Cardiovascular: S1, S2, regular rate, trace edema of the bilateral lower extremities. Respiratory: Chest is clear to auscultation bilaterally. Bilateral equal air entry. No rales or rhonchi. Abdomen: Soft, obese, positive bowel sounds. Nontender. Musculoskeletal: Decreased range of movement of bilateral lower extremities. Central nervous system (CLEANING PORTER): No focal deficit. Power is 5/5 in bilateral upper extremities. The patient does not move the lower extremities much and he is chronically bedridden. LABORATORY REVIEW: CBC showed WBC 7.7 with hemoglobin 9.2, platelets of 139. Basic metabolic profile (BMP) showed sodium 138, potassium 4, chloride 102, bicarb 30, BUN 57, creatinine is 2.4. CURRENT INPATIENT MEDICATIONS: The patient's medications were all reviewed by me. There is no change in the medications today as compared with yesterday. ASSESSMENT/PLAN: 1. End-stage renal disease. The patient has a good residual renal function. He is only being dialyzed twice a week. 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 2. Anemia in end-stage renal disease. Continue current dose of Aranesp once a week, hemoglobin level is 9.2 which is improving. 3. Lower extremity edema. Continue current dose of torsemide, further fluid removal will be done during dialysis.
--- NOTE | 2018-08-21 12:45 | IPN ---
DATE: 08/21/2018 SUBJECTIVE: The patient was seen and examined at the bedside today morning during hemodialysis procedure. He is tolerating the hemodialysis procedure well. He denies any active complaints. OBJECTIVE: Vital Signs: Temperature is 97.1 degrees Fahrenheit. Blood pressure 132/80. Pulse is 67. Respiratory rate of 16. Saturating 94% on room air. Intake and output: Urine output recorded yesterday is 1.8 liters, weight in the bed scale is not available. PHYSICAL EXAMINATION: General: The patient is awake, alert, oriented x3, morbidly obese, laying in bed getting hemodialysis done. Head and Neck Exam: Extraocular muscles intact. Pupils equally round and react to light. Mucous membranes are moist. Neck is supple. He has a right internal jugular (IJ) tunneled hemodialysis catheter which is being used for dialysis. Cardiovascular: S1 and S2, regular rate. Trace edema of the bilateral lower extremities. Respiratory: Chest is clear to auscultation bilaterally. Bilateral equal air entry. No rales or rhonchi. Abdomen: Soft, obese, positive bowel sounds, nontender. Musculoskeletal: Decreased range of movement of bilateral lower extremities. Central Nervous System (GAS EXAMINER): No focal deficit. Power is 5/5 in bilateral upper extremities. LAB REVIEW: CBC was done yesterday which showed hemoglobin of 9.2. There is no BMP available today. CURRENT INPATIENT MEDICATIONS: The patient's medications were all reviewed by me. No change in the medications today as compared with yesterday. ASSESSMENT/PLAN: 1. End-stage renal disease. The patient is dialyzed only twice a week because of good residual renal function. Next hemodialysis will be the end of the week. Ultrafiltration goal is 1 liter only. 2. Anemia in end-stage renal disease. Continue current dose of Aranesp. Hemoglobin level is improving. 3. Lower extremity edema. Continue current dose of torsemide. The rest of edema management is done with dialysis. 4. Poor functional status, chronically bedridden. The patient is pending placement in a snf where he can go for dialysis.
--- NOTE | 2018-08-21 12:48 | IPNPDOC ---
Text Note Date of Service The patient was seen on 08/21/18. NOTE Patient was seen and examined by me this morning. He did, he was getting dialy sis and has no acute complaints PHYSICAL EXAMINATION: General: The patient is awake, alert, oriented times three, morbidly obese, laying in bed in no apparent distress. Head and neck exam: Extraocular muscles intact. Pupils equally round and reactive to light. Mucous membranes are moist. Neck: Neck is supple. Right internal jugular (IJ) tunneled hemodialysis catheter was noted. Cardiovascular: S1, S2, regular rate, trace edema of the bilateral lower extremities. Respiratory: Chest is clear to auscultation bilaterally. Bilateral equal air entry. No rales or rhonchi. Abdomen: Soft, obese, positive bowel sounds. Nontender. Musculoskeletal: Decreased range of movement of bilateral lower extremities. Central nervous system (FISH FILLETER): No focal deficit. Power is 5/5 in bilateral upper extremities. The patient does not move the lower extremities much and he is chronically bedridden. Vital Sign - Last 24 Hours 08/20/18 08/20/18 08/20/18 08/21/18 14:00 20:45 22:00 05:58 Temp 97.8 98.0 Pulse 73 93 67 67 Resp 18 16 B/P (MAP) 126/82 (97) 110/58 110/58 (75) 132/80 Pulse Ox 97 93 08/21/18 06:00 Temp 97.1 Pulse 67 Resp 16 B/P (MAP) 132/80 (97) Pulse Ox 94 Laboratory Tests 08/20/18 05:22 Red Blood Count 2.88 L, Mean Corpuscular Volume 102.1 H, Mean Corpuscular Hemoglobin 31.9, Mean Corpuscular Hemoglobin Concent 31.3 L, Red Cell Distribution Width 16.4 H, Neutrophils (%) (Auto) 62.2, Lymphocytes (%) (Auto) 23.9 L, Monocytes (%) (Auto) 6.5 H, Eosinophils (%) (Auto) 6.4 H, Basophils (%) (Auto) 0.5, Neutrophils # (Auto) 4.8, Lymphocytes # (Auto) 1.8, Monocytes # (Auto) 0.5, Eosinophils # (Auto) 0.5, Basophils # (Auto) 0.0, Anion Gap 6 L ASSESSMENT/PLAN: 1. End-stage renal disease. The patient has a good residual renal function. He is only being dialyzed twice a week. He will deferr dialysis per nephrology 2. Anemia in end-stage renal disease. Currently stable 3. Lower extremity edema. Continue current dose of torsemide, further fluid removal will be done during dialysis. DVT, GI prophylaxis Disposition. Awaiting placement VS,Fishbone, I+O VS, Fishbone, I+O Vital Signs Date Time Temp Pulse Resp B/P (MAP) Pulse Ox O2 Delivery O2 Flow Rate FiO2 08/21/18 06:00 97.1 67 16 132/80 (97 94 I&O- Last 24 Hours up to 6 AM 08/21/18 06:00 Intake Total 1736 ml Output Total 1050 ml Balance 686 ml GAMAL DIAZ MD Aug 21, 2018 12:48
[2018-08-21 14:00] VITALS: BP 145/65
[2018-08-21] MEDS ORDERED: HEPARIN 1,000 UNITS/ML 10ML VIAL (FOR RADIOLOGY& DIALYSIS ONLY) XX ONE (14:00)
[2018-08-21] MEDS ORDERED: HEPARIN 1,000 UNITS/ML 10ML VIAL (FOR RADIOLOGY& DIALYSIS ONLY) IV ONE (14:00)
[2018-08-21] MEDS: traZODone 100 MG TAB PO SCH (21:01)
[2018-08-21] MEDS: SENNA 8.6 MG TAB (SENOKOT) PO PRN (21:02)
[2018-08-21 22:00] VITALS: BP 117/72
[2018-08-22 06:00] VITALS: BP 134/78
[2018-08-22] MEDS: PREGABALIN 100 MG CAP (LYRICA) PO SCH ×2 (07:56→20:51)
[2018-08-22] MEDS: POTASSIUM CHLORIDE 10 MEQ SR TABLET PO SCH (07:56)
[2018-08-22] MEDS: TORSEMIDE 20 MG TAB PO SCH (07:56)
[2018-08-22] MEDS: (RENVELA) SEVELAMER **CARBONate** 800 MG TAB PO SCH ×3 (07:56→17:16)
[2018-08-22] MEDS: SENOKOT S TAB PO SCH ×2 (07:56→20:51)
[2018-08-22] MEDS: METOPROLOL TART 50 MG TAB PO SCH ×2 (07:57→20:51)
[2018-08-22] MEDS: OMEPRAZOLE 20 MG CAP PO SCH (07:57)
[2018-08-22] MEDS: FLUoxetine 20 MG CAP PO SCH (07:57)
[2018-08-22] MEDS: NYSTATIN 100,000 UNITS/GM TOPICAL PWD 15 GM TOP SCH ×2 (07:58→20:50)
[2018-08-22] MEDS: HEPARIN SOD (PORCINE) 5000 UNITS/ML VIAL SQ SCH ×2 (07:58→20:50)
--- NOTE | 2018-08-22 11:44 | IPNPDOC ---
Text Note Date of Service The patient was seen on 08/22/18. NOTE Patient was seen and examined by me this morning. He has no acute complaints PHYSICAL EXAMINATION: General: The patient is awake, alert, oriented times three, morbidly obese, laying in bed in no apparent distress. Head and neck exam: Extraocular muscles intact. Pupils equally round and reactive to light. Mucous membranes are moist. Neck: Neck is supple. Right internal jugular (IJ) tunneled hemodialysis catheter was noted. Cardiovascular: S1, S2, regular rate, trace edema of the bilateral lower extremities. Respiratory: Chest is clear to auscultation bilaterally. Bilateral equal air entry. No rales or rhonchi. Abdomen: Soft, obese, positive bowel sounds. Nontender. Musculoskeletal: Decreased range of movement of bilateral lower extremities. Central nervous system (TECHNICAL AGRONOMIST): No focal deficit. Power is 5/5 in bilateral upper extremities. The patient does not move the lower extremities much and he is chronically bedridden. ASSESSMENT/PLAN: 1. End-stage renal disease. The patient has a good residual renal function. He is only being dialyzed twice a week. He will deferr dialysis per nephrology Discussed with social director and case management. We'll try to arrange a placement in a facility. He can get dialysis done twice a week. He gets dialyzed on Monday and Monday. Nephro follow-up appreciated . Awaiting placement in a long-term facility. 2. Anemia in end-stage renal disease. Currently stable 3. Lower extremity edema. Continue current dose of torsemide, further fluid removal will be done during dialysis. 4. Hypertension, CAD, PAD: Continue on home meds metoprolol 5. Left LE ulcer: wound care on board. 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 Air mattress 6. Bilateral venous stasis, ulcer left lower extremity. continued on home meds torsemide 7. Moderate protein calorie malnutrition: Continue to encourage PO intake. Continue to work with PT. PT recommends rehab. Disposition: waiting for placement providing dialysis. VS,Fishbone, I+O VS, Fishbone, I+O Vital Signs Date Time Temp Pulse Resp B/P (MAP) Pulse Ox O2 Delivery O2 Flow Rate FiO2 08/22/18 07:57 61 134/78 08/22/18 06:00 97.0 18 95 I&O- Last 24 Hours up to 6 AM 08/22/18 06:00 Intake Total 1600 ml Output Total 3045 ml Balance -1445 ml GAMAL DIAZ MD Aug 22, 2018 11:44
[2018-08-22 14:00] VITALS: BP 111/68
[2018-08-22] MEDS: SENNA 8.6 MG TAB (SENOKOT) PO PRN (20:50)
[2018-08-22] MEDS: traZODone 100 MG TAB PO SCH (20:51)
--- NOTE | 2018-08-22 21:42 | IPN ---
DATE: 08/22/2018 SUBJECTIVE: Patient was seen and examined at the bedside today morning. Surprisingly, patient was sitting in the wheelchair today. Patient was dialyzed yesterday. He tolerated the hemodialysis procedure well; 1 liter of fluid was removed. He denies any active complaints. OBJECTIVE: VITAL SIGNS: Temperature is 97.3 degrees Fahrenheit, blood pressure 111/68, pulse is 72, respiratory rate of 20, saturating 97% on room air. INTAKE AND OUTPUT: Urine output recorded is 800 mL. Ultrafiltration with hemodialysis was 1 liter yesterday. Weight in the bed scale is not available. PHYSICAL EXAMINATION: GENERAL: Patient is awake, alert, oriented times three, morbidly obese, sitting in the wheelchair, no apparent distress. HEAD AND NECK EXAM: Extraocular muscles intact. Pupils equally round and reactive to light. Mucous membranes are moist. Neck is supple. He has a right internal jugular (IJ) tunneled hemodialysis catheter. CARDIOVASCULAR: S1, S2. Regular rate. Trace edema of the bilateral lower extremities. RESPIRATORY: Chest is clear to auscultation bilaterally. Bilateral equal air entry. No rales or rhonchi. ABDOMEN: Soft, obese, positive bowel sounds. Nontender. MUSCULOSKELETAL: Patient is sitting in the wheelchair today and he is able to move his lower extremities. CENTRAL NERVOUS SYSTEM (DRY ROLLER): No focal deficit. Power is 5/5 in bilateral upper extremities. LABORATORY REVIEW: There are no labs available since 08/20/2018. ASSESSMENT AND PLAN: 1. End-stage renal disease. Patient has regular renal function. He is getting only twice a week hemodialysis. Continue current regimen. 2. Anemia in end-stage renal disease. Hemoglobin level is optimal. Continue current dose of Aranesp. Labs will be checked on Monday, before his dialysis. 3. Hypertension in end-stage renal disease. Continue metoprolol 50 mg by mouth twice a day. 4. Chronic kidney disease/mineral bone disease. Continue current dose of Renvela 800 mg by mouth with meals. 5. Lower extremity edema. Continue current dose of torsemide 40 mg by mouth daily.
[2018-08-22 22:00] VITALS: BP 113/67
[2018-08-23 06:00] VITALS: BP 128/72
[2018-08-23] MEDS: PREGABALIN 100 MG CAP (LYRICA) PO SCH ×2 (09:02→22:08)
[2018-08-23] MEDS: TORSEMIDE 20 MG TAB PO SCH (09:03)
[2018-08-23] MEDS: FLUoxetine 20 MG CAP PO SCH (09:03)
[2018-08-23] MEDS: POTASSIUM CHLORIDE 10 MEQ SR TABLET PO SCH (09:03)
[2018-08-23] MEDS: SENOKOT S TAB PO SCH ×2 (09:03→22:08)
[2018-08-23] MEDS: OMEPRAZOLE 20 MG CAP PO SCH (09:03)
[2018-08-23] MEDS: (RENVELA) SEVELAMER **CARBONate** 800 MG TAB PO SCH ×3 (09:03→18:00)
[2018-08-23] MEDS: HEPARIN SOD (PORCINE) 5000 UNITS/ML VIAL SQ SCH ×2 (09:04→22:09)
[2018-08-23] MEDS: EUCERIN 120GM CREAM TOP SCH (09:04)
[2018-08-23] MEDS: NYSTATIN 100,000 UNITS/GM TOPICAL PWD 15 GM TOP SCH ×2 (09:04→22:08)
[2018-08-23] MEDS: DIAPER RELIEF PASTE (DESITIN) 60GM TOP SCH (09:05)
[2018-08-23] MEDS: METOPROLOL TART 50 MG TAB PO SCH ×2 (09:07→22:07)
--- NOTE | 2018-08-23 11:21 | IPNPDOC ---
Text Note Date of Service The patient was seen on 08/23/18. NOTE Patient was seen and examined by me this morning. He has no acute complaints PHYSICAL EXAMINATION: General: The patient is awake, alert, oriented times three, morbidly obese, laying in bed in no apparent distress. Head and neck exam: Extraocular muscles intact. Pupils equally round and reactive to light. Mucous membranes are moist. Neck: Neck is supple. Right internal jugular (IJ) tunneled hemodialysis catheter was noted. Cardiovascular: S1, S2, regular rate, trace edema of the bilateral lower extremities. Respiratory: Chest is clear to auscultation bilaterally. Bilateral equal air entry. No rales or rhonchi. Abdomen: Soft, obese, positive bowel sounds. Nontender. Musculoskeletal: Decreased range of movement of bilateral lower extremities. Central nervous system (BANQUET ATTENDANT): No focal deficit. Power is 5/5 in bilateral upper extremities. The patient does not move the lower extremities much and he is chronically bedridden. ASSESSMENT/PLAN: 1. End-stage renal disease. The patient has a good residual renal function. He is only being dialyzed twice a week. He will deferr dialysis per nephrology Discussed with social services manager and case management. We'll try to arrange a placement in a facility. He can get dialysis done twice a week. He gets dialyzed on Monday and Monday. Nephro follow-up appreciated . Awaiting placement in a long term facility. 2. Anemia in end-stage renal disease. Currently stable 3. Lower extremity edema. Continue current dose of torsemide, further fluid removal will be done during dialysis. 4. Hypertension, CAD, PAD: Continue on home meds metoprolol 5. Left LE ulcer: wound care on board. 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 Air mattress 6. Bilateral venous stasis, ulcer left lower extremity. continued on home meds torsemide 7. Moderate protein calorie malnutrition: Continue to encourage PO intake. Continue to work with PT. PT recommends rehab. Disposition: waiting for placement providing dialysis. VS,Fishbone, I+O VS, Fishbone, I+O Vital Signs Date Time Temp Pulse Resp B/P (MAP) Pulse Ox O2 Delivery O2 Flow Rate FiO2 08/23/18 09:07 78 106/64 08/23/18 06:00 97.4 17 97 I&O- Last 24 Hours up to 6 AM 08/23/18 06:00 Intake Total 2000 ml Output Total 1400 ml Balance 600 ml GAMAL DIAZ MD Aug 23, 2018 11:21
[2018-08-23 14:00] VITALS: BP 121/78
--- NOTE | 2018-08-23 15:04 | IPN ---
DATE OF SERVICE: 08/23/2018 SUBJECTIVE: The patient was seen and examined at the bedside today morning. He is afebrile, hemodynamically stable. He denies any active complaints. His last dialysis was 2 days ago. Next dialysis is due tomorrow morning. OBJECTIVE: Vital signs: Temperature is 97.4 degrees Fahrenheit, blood pressure 128/72, pulse is 69, respiratory rate of 17, saturating 97% on room air. Intake and output: Urine output recorded is 750 mL. Weight in the bed scale is not available. PHYSICAL EXAMINATION: General: The patient is morbidly obese, lying in bed, in no apparent distress. Head and neck examination: Extraocular muscles intact. Pupils equally round and reactive to light. Mucous membranes are moist. Neck is supple. Right internal jugular (vein) (IJ) tunneled hemodialysis catheter. Cardiovascular: S1, S2, regular rate. Trace edema of the bilateral lower extremities. Respiratory: Chest is clear to auscultation bilaterally. Bilateral equal air entry. No rales or rhonchi. Abdomen: Soft, obese, positive bowel sounds. Nontender. Musculoskeletal: No clubbing or cyanosis. Pulses are 2+. Central nervous system (ADULT EDUCATOR): No focal deficit. Power is 5/5 in bilateral upper extremities. LABORATORY REVIEW: Complete blood count (CBC) and basic metabolic profile (BMP) is from 08/20/2018. Next laboratory draw will be done tomorrow morning. CURRENT INPATIENT MEDICATIONS: There is no change in the medications today as compared with yesterday. ASSESSMENT AND PLAN: 1. End-stage renal disease. The patient is requiring only twice a week dialysis. He will be dialyzed tomorrow morning. Volume status is optimal. 2. Anemia in end-stage renal disease. Continue current dose of Aranesp. Next hemoglobin checked will be tomorrow morning. 3. Hypertension. Continue current dose of metoprolol. 4. Lower extremity edema. Volume status is optimal. Continue torsemide 40 mg by mouth daily.
[2018-08-23 22:00] VITALS: BP 116/73
[2018-08-23 22:05] VITALS: BP 111/66
[2018-08-23] MEDS: traZODone 100 MG TAB PO SCH (22:07)
[2018-08-24 05:55] LABS: BASO % 0.4 % (0.0-1.0); EOS # 0.4 10^3/uL (0.0-0.50); EOS % 6.1 % (0.0-3.0); HEMATOCRIT 30.8 % (42.0-52.0); HEMOGLOBIN 9.7 g/dl (13.5-17.5); LYMPH # 1.8 10^3/uL (1.5-4.5); LYMPH % 26.4 % (24.0-44.0); MEAN CORPUSCULAR HEMOGLOBIN 31.8 pg (27.0-33.0); MEAN CORPUSCULAR HGB CONC 31.5 g/dl (32.0-36.5); MONO # 0.6 10^3/uL (0.0-0.8); MONO % 8.3 % (0.0-5.0); NEUTROPHILS # 3.9 10^3/uL (1.8-7.7); NEUTROPHILS % 58.5 % (36.0-66.0); PLATELET COUNT, AUTOMATED 143 10^3/uL (150-450); RED BLOOD COUNT 3.05 10^6/uL (4.30-6.10); WHITE BLOOD COUNT 6.7 10^3/uL (4.0-10.0)
[2018-08-24 06:00] VITALS: BP 111/68
[2018-08-24 06:14] LABS: CREATININE FOR GFR 2.24 MG/DL (0.70-1.30); GLOMERULAR FILTRATION RATE 31.8 (>49)
[2018-08-24 08:24] VITALS: BP 120/77
[2018-08-24] MEDS: HEPARIN SOD (PORCINE) 5000 UNITS/ML VIAL SQ SCH ×2 (08:36→20:37)
[2018-08-24] MEDS: POTASSIUM CHLORIDE 10 MEQ SR TABLET PO SCH (08:37)
[2018-08-24] MEDS: (RENVELA) SEVELAMER **CARBONate** 800 MG TAB PO SCH ×3 (08:37→18:04)
[2018-08-24] MEDS: SENOKOT S TAB PO SCH ×2 (08:38→20:37)
[2018-08-24] MEDS: TORSEMIDE 20 MG TAB PO SCH (08:38)
[2018-08-24] MEDS: NYSTATIN 100,000 UNITS/GM TOPICAL PWD 15 GM TOP SCH ×2 (08:38→20:38)
[2018-08-24] MEDS: FLUoxetine 20 MG CAP PO SCH (08:38)
[2018-08-24] MEDS: METOPROLOL TART 50 MG TAB PO SCH ×2 (08:38→20:38)
[2018-08-24] MEDS: OMEPRAZOLE 20 MG CAP PO SCH (08:39)
[2018-08-24] MEDS: PREGABALIN 100 MG CAP (LYRICA) PO SCH ×2 (08:39→20:38)
--- NOTE | 2018-08-24 10:32 | IPNPDOC ---
Text Note Date of Service The patient was seen on 08/24/18. NOTE Patient was seen and examined by me this morning. He has no acute complaints PHYSICAL EXAMINATION: General: The patient is awake, alert, oriented times three, morbidly obese, laying in bed in no apparent distress. Head and neck exam: Extraocular muscles intact. Pupils equally round and reactive to light. Mucous membranes are moist. Neck: Neck is supple. Right internal jugular (IJ) tunneled hemodialysis catheter was noted. Cardiovascular: S1, S2, regular rate, trace edema of the bilateral lower extremities. Respiratory: Chest is clear to auscultation bilaterally. Bilateral equal air entry. No rales or rhonchi. Abdomen: Soft, obese, positive bowel sounds. Nontender. Musculoskeletal: Decreased range of movement of bilateral lower extremities. Central nervous system (CHEMICAL EDUCATOR): No focal deficit. Power is 5/5 in bilateral upper extremities. The patient does not move the lower extremities much and he is chronically bedridden. ASSESSMENT/PLAN: 1. End-stage renal disease. The patient has a good residual renal function. He is only being dialyzed twice a week. He will deferr dialysis per nephrology Discussed with social sciences department chair and case management. We'll try to arrange a placement in a facility. He can get dialysis done twice a week. He gets dialyzed on Monday and Monday. Nephro follow-up appreciated . Awaiting placement in a [facility] facility. 2. Anemia in end-stage renal disease. Currently stable 3. Lower extremity edema. Continue current dose of torsemide, further fluid removal will be done during dialysis. 4. Hypertension, CAD, PAD: Continue on home meds metoprolol 5. Left LE ulcer: wound care on board. 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 Air mattress 6. Bilateral venous stasis, ulcer left lower extremity. continued on home meds torsemide 7. Moderate protein calorie malnutrition: Continue to encourage PO intake. Continue to work with PT. PT recommends rehab. Disposition: waiting for placement providing dialysis. VS,Fishbone, I+O VS, Fishbone, I+O Laboratory Tests 08/24/18 05:20 Red Blood Count 3.05 L, Mean Corpuscular Volume 101.0 H, Mean Corpuscular Hemoglobin 31.8, Mean Corpuscular Hemoglobin Concent 31.5 L, Red Cell Distribution Width 16.5 H, Neutrophils (%) (Auto) 58.5, Lymphocytes (%) (Auto) 26.4, Monocytes (%) (Auto) 8.3 H, Eosinophils (%) (Auto) 6.1 H, Basophils (%) (Auto) 0.4, Neutrophils # (Auto) 3.9, Lymphocytes # (Auto) 1.8, Monocytes # (Auto) 0.6, Eosinophils # (Auto) 0.4, Basophils # (Auto) 0.0, Calcium Level 8.0 L Vital Signs Date Time Temp Pulse Resp B/P (MAP) Pulse Ox O2 Delivery O2 Flow Rate FiO2 08/24/18 08:38 68 120/77 08/24/18 06:00 96.7 15 96 I&O- Last 24 Hours up to 6 AM 08/24/18 06:00 Intake Total 2700 ml Output Total 1400 ml Balance 1300 ml GAMAL IDAZ MD Aug 24, 2018 10:32
[2018-08-24 14:00] VITALS: BP 124/64
--- NOTE | 2018-08-24 15:51 | IPN ---
DATE: 08/24/2018 SUBJECTIVE The patient was seen and examined at the bedside today morning. He is afebrile, hemodynamically stable. He has good urine output. Volume status is optimal. He denies any active complaints. OBJECTIVE Vital signs: Temperature is 96.7 degrees Fahrenheit. Blood pressure 120/77. Pulse 68, respiratory rate of 15, saturating 96% on room air. Intake and output: Urine output recorded as 1 liter so far today since overnight. Weight in the bed scale is not available. PHYSICAL EXAMINATION General: The patient is awake, alert, oriented times three, morbidly obese, laying in bed. No apparent distress. Head and neck exam: Extraocular muscles are intact. Pupils equally round and reactive to light. Mucous membranes are moist. Neck is supple. Right IJ tunneled hemodialysis catheter was noted. Cardiovascular: S1, S2, regular rate. Trace edema of the bilateral lower extremities. Respiratory: Chest is clear to auscultation bilaterally. Bilateral equal air entry. No rales or rhonchi. Abdomen: Soft, obese, positive bowel sounds. Nontender. Musculoskeletal: No clubbing or cyanosis. Pulses are 2+. REMOTE SENSING SURVEYOR: No focal deficit. Power is 5/5 in all extremities. LAB REVIEW: CBC showed WBC 6.7, hemoglobin 9.7, platelets are 143. BMP showed sodium 136, potassium 4, chloride 101, bicarb 28, BUN 60, creatinine is 2.2. CURRENT INPATIENT MEDICATIONS: The patient's medications were all reviewed by me. There is no change in medications today as compared with yesterday. ASSESSMENT/PLAN 1. End-stage renal disease. The patient is requiring twice a week dialysis only. Next dialysis session will be tomorrow. He has a poor residual renal function. Creatinine clearance is around 20 mL. 2. Anemia of end-stage renal disease. Continue current regimen of Aranesp once a week. Hemoglobin level is optimal. 3. Hypertension. Continue current dose of metoprolol. 4. Protein calorie malnutrition. The patient is eating a regular diet. Patient is receiving Medardo with breakfast and dinner.
[2018-08-24] MEDS: traZODone 100 MG TAB PO SCH (20:37)
[2018-08-24 22:00] VITALS: BP 114/68
[2018-08-25 06:00] VITALS: BP 133/79
[2018-08-25 06:44] LABS: BASO % 0.5 % (0.0-1.0); HEMATOCRIT 30.5 % (42.0-52.0); HEMOGLOBIN 9.6 g/dl (13.5-17.5); LYMPH # 1.5 10^3/uL (1.5-4.5); LYMPH % 24.8 % (24.0-44.0); MEAN CORPUSCULAR HEMOGLOBIN 31.9 pg (27.0-33.0); MEAN CORPUSCULAR HGB CONC 31.5 g/dl (32.0-36.5); MEAN CORPUSCULAR VOLUME 101.3 fl (80.0-96.0); MONO % 7.8 % (0.0-5.0); NEUTROPHILS # 3.8 10^3/uL (1.8-7.7); NEUTROPHILS % 60.6 % (36.0-66.0); PLATELET COUNT, AUTOMATED 139 10^3/uL (150-450); RED BLOOD COUNT 3.01 10^6/uL (4.30-6.10); WHITE BLOOD COUNT 6.2 10^3/uL (4.0-10.0)
[2018-08-25 06:45] LABS: EOS # 0.4 10^3/uL (0.0-0.50); MONO # 0.5 10^3/uL (0.0-0.8)
[2018-08-25] MEDS: POTASSIUM CHLORIDE 10 MEQ SR TABLET PO SCH (06:49)
[2018-08-25] MEDS: (RENVELA) SEVELAMER **CARBONate** 800 MG TAB PO SCH ×3 (06:49→17:18)
[2018-08-25] MEDS: OMEPRAZOLE 20 MG CAP PO SCH (06:50)
[2018-08-25] MEDS: TORSEMIDE 20 MG TAB PO SCH (06:50)
[2018-08-25] MEDS: HEPARIN SOD (PORCINE) 5000 UNITS/ML VIAL SQ SCH ×2 (06:51→21:15)
[2018-08-25] MEDS: SENOKOT S TAB PO SCH ×2 (06:51→21:15)
[2018-08-25] MEDS: FLUoxetine 20 MG CAP PO SCH (06:52)
[2018-08-25] MEDS: PREGABALIN 100 MG CAP (LYRICA) PO SCH ×2 (06:53→21:15)
[2018-08-25] MEDS: METOPROLOL TART 50 MG TAB PO SCH ×2 (06:54→21:15)
[2018-08-25] MEDS: NYSTATIN 100,000 UNITS/GM TOPICAL PWD 15 GM TOP SCH ×2 (06:54→21:16)
[2018-08-25 07:02] LABS: ALBUMIN 2.4 GM/DL (3.2-5.2); CALCIUM LEVEL 7.6 MG/DL (8.8-10.2); CREATININE FOR GFR 2.33 MG/DL (0.70-1.30); GLOMERULAR FILTRATION RATE 30.4 (>49); POTASSIUM SERUM 3.8 MEQ/L (3.5-5.1)
--- NOTE | 2018-08-25 10:44 | IPNPDOC ---
Text Note Date of Service The patient was seen on 08/25/18. NOTE Patient was seen and examined by me this morning. He has no acute complaints PHYSICAL EXAMINATION: General: The patient is awake, alert, oriented times three, morbidly obese, laying in bed in no apparent distress. Head and neck exam: Extraocular muscles intact. Pupils equally round and reactive to light. Mucous membranes are moist. Neck: Neck is supple. Right internal jugular (IJ) tunneled hemodialysis catheter was noted. Cardiovascular: S1, S2, regular rate, trace edema of the bilateral lower extremities. Respiratory: Chest is clear to auscultation bilaterally. Bilateral equal air entry. No rales or rhonchi. Abdomen: Soft, obese, positive bowel sounds. Nontender. Musculoskeletal: Decreased range of movement of bilateral lower extremities. Central nervous system (SIZING SPONGER): No focal deficit. Power is 5/5 in bilateral upper extremities. The patient does not move the lower extremities much and he is chronically bedridden. ASSESSMENT/PLAN: Hospital course The patient is a 63-year-old white male with multiple chronic medical conditions, including end-stage renal disease - on dialysis, came to the emergency room (ER) due to general weakness. Patient has end-stage renal disease and started hemodialysis from February of 2018. Dr. Lovell is his medical records auditor. He is living at home by himself, and he is very weak, he cannot stay at home because he needs a lot of help, and he needs short-term rehabilitation. However, the rehab facility in [place] does not have ability to do hemodialysis, so Dr. Lovell sent the patient here for admission to see whether can stop dialysis and then will decide whether he can stay locally in the rehab facility or if we need to send to other rehab facility with capacity for hemodialysis. Otherwise, he does not have any complaints. Nephrology has been following the patient, and the patient continues to be on dialysis. The patient is still awaiting placement and continues to work with PT, OT 1. End-stage renal disease. The patient has a good residual renal function. He is only being dialyzed twice a week. He will deferr dialysis per nephrology Discussed with social science teacher and case management. We'll try to arrange a placement in a facility. He can get dialysis done twice a week. He gets dialyzed on Monday and Monday. Nephro follow-up appreciated . Awaiting placement in a detention facility. 2. Anemia in end-stage renal disease. Currently stable 3. Lower extremity edema. Continue current dose of torsemide, further fluid removal will be done during dialysis. 4. Hypertension, CAD, PAD: Continue on home meds metoprolol 5. Left LE ulcer: wound care on board. 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 Air mattress 6. Bilateral venous stasis, ulcer left lower extremity. continued on home meds torsemide 7. Moderate protein calorie malnutrition: Continue to encourage PO intake. Continue to work with PT. PT recommends rehab. Disposition: waiting for placement providing dialysis. VS,Fishbone, I+O VS, Fishbone, I+O Laboratory Tests 08/25/18 05:49 Red Blood Count 3.01 L, Mean Corpuscular Volume 101.3 H, Mean Corpuscular Hemoglobin 31.9, Mean Corpuscular Hemoglobin Concent 31.5 L, Red Cell Distribu tion Width 16.3 H, Neutrophils (%) (Auto) 60.6, Lymphocytes (%) (Auto) 24.8, Monocytes (%) (Auto) 7.8 H, Eosinophils (%) (Auto) 6.0 H, Basophils (%) (Auto) 0.5, Neutrophils # (Auto) 3.8, Lymphocytes # (Auto) 1.5, Monocytes # (Auto) 0.5, Eosinophils # (Auto) 0.4, Basophils # (Auto) 0.0, Anion Gap 7 L Vital Signs Date Time Temp Pulse Resp B/P (MAP) Pulse Ox O2 Delivery O2 Flow Rate FiO2 08/25/18 06:54 68 133/79 08/25/18 06:00 97.6 18 96 I&O- Last 24 Hours up to 6 AM 08/25/18 06:00 Intake Total 654 ml Output Total 2450 ml Balance -1796 ml GAMAL DIAZ MD Aug 25, 2018 10:44
[2018-08-25 14:00] VITALS: BP 128/77
[2018-08-25] MEDS: SENNA 8.6 MG TAB (SENOKOT) PO PRN (21:15)
[2018-08-25] MEDS: traZODone 100 MG TAB PO SCH (21:16)
[2018-08-25 22:00] VITALS: BP 129/76
[2018-08-26 06:00] VITALS: BP 133/65
[2018-08-26] MEDS: METOPROLOL TART 50 MG TAB PO SCH ×2 (08:30→20:51)
[2018-08-26] MEDS: (RENVELA) SEVELAMER **CARBONate** 800 MG TAB PO SCH ×3 (08:30→18:06)
[2018-08-26] MEDS: OMEPRAZOLE 20 MG CAP PO SCH (08:30)
[2018-08-26] MEDS: PREGABALIN 100 MG CAP (LYRICA) PO SCH ×2 (08:31→20:52)
[2018-08-26] MEDS: TORSEMIDE 20 MG TAB PO SCH (08:31)
[2018-08-26] MEDS: POTASSIUM CHLORIDE 10 MEQ SR TABLET PO SCH (08:31)
[2018-08-26] MEDS: SENOKOT S TAB PO SCH ×2 (08:31→20:51)
[2018-08-26] MEDS: HEPARIN SOD (PORCINE) 5000 UNITS/ML VIAL SQ SCH ×2 (08:32→20:51)
[2018-08-26] MEDS: NYSTATIN 100,000 UNITS/GM TOPICAL PWD 15 GM TOP SCH ×2 (08:32→20:52)
[2018-08-26] MEDS: FLUoxetine 20 MG CAP PO SCH (08:32)
[2018-08-26] MEDS: MOM 30ML SUSPENSION UDC PO SCH ×2 (13:34→18:06)
[2018-08-26 14:00] VITALS: BP 123/69
--- NOTE | 2018-08-26 14:03 | IPN ---
DATE: 08/25/2018 Mr. Eng is seen this afternoon on his bedside. He was dialyzed yesterday and the patient is feeling well today. He denies any nausea, vomiting, dyspnea or chest pain. In the recent past, his dialysis was put on hold for a week. However, his BUN and creatinine increased significantly due to which his dialysis was resumed and now he is receiving twice a week dialysis. The patient is currently waiting for senior living placement due to inability to move and function and take care of himself. On physical examination, temperature 97.0 degrees Fahrenheit, heart rate 72 per minute and respiratory rate 24 per minute. Blood pressure 128/77 mmHg and oxygen saturation 95%. Head is atraumatic. Neck is supple and without jugular venous distention (JVD) or thyroid enlargement. Heart sounds are regular and lungs clear to auscultation. Abdomen soft, obese and nontender. Bowel sounds are normal. Extremities have no cyanosis or clubbing. Neurologically he is awake, alert and oriented times three. Today's labs show WBC count 6.2, hemoglobin 9.6 and hematocrit 30.5. Sodium 137, potassium 3.8, CO2 30, BUN 67 and creatinine 2.33. Calcium 7.6 and phosphorus 5.0. PROBLEMS: 1. End-stage renal disease. The patient remains dialysis dependent. He still has good residual renal function and is currently being dialyzed only twice a week. He is bed-bound and has minimal activity. His volume status remains reasonably well-compensated. I feel that twice a week dialysis is adequate at this point. His electrolytes and volume status are within normal range. 2. Anemia. His anemia is gradually improving. Will continue to manage with Aranesp 200 mcg once a week during dialysis. 3. Congestive heart failure. The patient remains on torsemide 40 mg daily and also gets fluid removed with dialysis. Volume status is very well compensated at this point.
--- NOTE | 2018-08-26 17:33 | IPNPDOC ---
Text Note Date of Service The patient was seen on 08/26/18. NOTE Mr. Eng is reasonably well. He does complain of pain with movement. Patient has underlying end-stage renal disease. He lives alone and is not readily able to take full care of himself. He is awaiting senior care placement. His current greatest complaint is of constipation. Physical exam: HENT: Neck is supple without adenopathy or thyromegaly, oral mucosa is moist Cardiovascular: Regular rate and rhythm with a grade 2/6 systolic murmur. Respiratory: Clear to auscultation with no rhonchi, rales, wheezes or cough. Abdomen: soft, nondistended, nontender, notable central obesity, bowel tones are present; dialysis catheter is in place to his right upper chest Extremities: The patient has remarkable joint changes, especially to his fingers and wrists consistent with significant arthritis, He does not exhibit remarkable lower extremity edema Assessment/plan: 1. Chronic kidney disease stage V--patient continues with his usual hemodialysis schedule. We appreciate the assistance from the nephrology service. 2. Constipation--patient reports poor response to senna/Senokot. He states he responds better to milk of magnesia. We will try this. Disposition: The patient continues to wait for a intermediate site that can accommodate his hemodialysis schedule. In the interim. He does continue to work with physical and occupational therapy. VS,Fishbone, I+O VS, Fishbone, I+O Vital Signs Date Time Temp Pulse Resp B/P (MAP) Pulse Ox O2 Delivery O2 Flow Rate FiO2 08/26/18 14:00 98.6 76 17 123/69 (87) 95 I&O- Last 24 Hours up to 6 AM 08/26/18 06:00 Intake Total 1248 ml Output Total 1980 ml Balance -732 ml TUCKER RICE MD Aug 26, 2018 17:33
[2018-08-26] MEDS: traZODone 100 MG TAB PO SCH (20:51)
[2018-08-26 22:00] VITALS: BP 123/68
--- NOTE | 2018-08-27 05:40 | IPN ---
DATE OF SERVICE: 08/17/2018: [facility] LATE DICTATION, DICTATION FROM AUGUST 17 IS MISSING. Rocio is seen and examined this morning at the bedside in the dialysis unit receiving his maintenance treatment, he denies any events or complaints. No shortness of breath and continues to be mostly bed-bound. PHYSICAL EXAMINATION: Vital signs: Temperature 98.2, pulse 68, respiratory rate 17, blood pressure 134/75, saturating 68% on room air. General: The patient is seen in the dialysis unit awake, alert, oriented, comfortable in no acute distress. HEENT: Extraocular muscles are intact. Tongue is moist. Neck: Supple. Tunneled hemodialysis catheter in the right internal jugula (IJ) is presently in use. Cardiac: S1, S2, regular rate and rhythm. Distant heart sounds. Lungs: Lung sounds anterior auscultation only. Clear and no crackles, rale or wheeze. Abdomen: Soft, obese and nontender. There are bowel sounds. Extremities: Negative for pitting edema. His wound has dressings. Radial pulses are palpable. Neurologic: No focal deficits. Psychiatric: Appropriate mood and effect. LABORATORY DATA: There are no new labs for today. MEDICATIONS: Medications are reviewed. PROBLEMS: 1. End-stage renal disease on hemodialysis. The patient has residual renal function and makes significant amount of urine. He is requiring dialysis mostly for clearance. He continues on chronic diuretics. He is dialyzed today. His volume status on electrolytes are acceptable. Continue current dose of torsemide. 2. Anemia of end-stage renal disease. He is to continue on Aranesp with dialysis. CBC is scheduled for the weekend. His hemoglobin has been suboptimal but stable and improving from prior. 3. Venostasis. Morbid obesity and generalized deconditioning. He continues with wound care to the left lower extremity. Also continue current dose of diuretics. He is pending correction placement.
[2018-08-27 06:00] VITALS: BP 121/67
[2018-08-27] MEDS: MOM 30ML SUSPENSION UDC PO SCH ×5 (06:00→23:23)
[2018-08-27] MEDS: (RENVELA) SEVELAMER **CARBONate** 800 MG TAB PO SCH ×3 (06:06→17:56)
[2018-08-27] MEDS: TORSEMIDE 20 MG TAB PO SCH (06:07)
[2018-08-27] MEDS: POTASSIUM CHLORIDE 10 MEQ SR TABLET PO SCH (06:07)
[2018-08-27] MEDS: SENOKOT S TAB PO SCH ×2 (06:08→20:56)
[2018-08-27] MEDS: HEPARIN SOD (PORCINE) 5000 UNITS/ML VIAL SQ SCH ×2 (06:08→20:55)
[2018-08-27] MEDS: METOPROLOL TART 50 MG TAB PO SCH ×2 (06:09→20:56)
[2018-08-27] MEDS: OMEPRAZOLE 20 MG CAP PO SCH (06:09)
[2018-08-27] MEDS: FLUoxetine 20 MG CAP PO SCH (06:09)
[2018-08-27] MEDS: PREGABALIN 100 MG CAP (LYRICA) PO SCH ×2 (06:09→20:56)
[2018-08-27] MEDS: EUCERIN 120GM CREAM TOP SCH (06:10)
[2018-08-27] MEDS: DIAPER RELIEF PASTE (DESITIN) 60GM TOP SCH (06:10)
[2018-08-27] MEDS: NYSTATIN 100,000 UNITS/GM TOPICAL PWD 15 GM TOP SCH ×2 (06:11→20:56)
--- NOTE | 2018-08-27 10:24 | IPN ---
DATE OF SERVICE: 08/27/2018 Mr. Eng is seen this morning on his bedside. He is feeling well and denies any new complaints. He has a nonhealing chronic ulcer on his left leg and also reports some ulcers on his buttock area. He denies any fever, chills, nausea, vomiting, dyspnea or chest pain. The patient has been dialysis dependent and is currently being dialyzed only twice a week due to some residual kidney function. He is waiting for a long term placement at present. PHYSICAL EXAMINATION: Temperature 98.3 degrees Fahrenheit, heart rate 68 per minute and respiratory rate 17 per minute. Blood pressure 123/69 mmHg and oxygen saturation 96% on room air. Head is atraumatic. Neck is supple and without JVD or thyroid enlargement. Heart: Sounds regular and lungs with diminished breath sounds bilaterally. Abdomen: Obese, soft and nontender. Extremities: Without any cyanosis or clubbing. Neurologically he is at his baseline mentation without a focal deficit. He is not able to get up due to chronic weakness and inability to walk. The patient did not have any new labs today. PROBLEMS: End-stage renal disease. The patient is dialysis dependent and will be dialyzed tomorrow. Will also check his labs tomorrow. Anemia. His anemia has been stable and he receives Aranesp once a week during dialysis. CBC will be checked again tomorrow morning. Generalized weakness and deconditioning. This is chronic issue and the patient is waiting for long-term long term placement.
[2018-08-27 14:00] VITALS: BP 148/62
--- NOTE | 2018-08-27 16:19 | IPNPDOC ---
Text Note Date of Service The patient was seen on 08/27/18. NOTE Mr. Eng is in no distress. Patient has underlying end-stage renal disease. He lives alone and is not readily able to take full care of himself. He is awaiting halfway placement. The patient is seen after his hemodialysis session this morning. Physical exam: HENT: Neck is supple without adenopathy or thyromegaly, oral mucosa is moist Cardiovascular: Regular rate and rhythm with a grade 2/6 systolic murmur. Respiratory: Clear to auscultation with no rhonchi, rales, wheezes or cough. Abdomen: soft, nondistended, nontender, notable central obesity, bowel tones are present; dialysis catheter is in place to his right upper chest Extremities: The patient has remarkable joint changes, especially to his fingers and wrists consistent with significant arthritis, He does not exhibit remarkable lower extremity edema Assessment/plan: 1. Chronic kidney disease stage V--patient continues with his usual hemodialysis schedule. We appreciate the assistance from the nephrology service. We do know recommendations to continue his current diuretics as well. 2. Constipation--patient reports poor response to senna/Senokot. He has had some response to scheduled milk of magnesia. Disposition: The patient continues to wait for a group home site that can accommodate his hemodialysis schedule; currently, there are no chair times available adjacent to group home facility. In the interim. He does continue to work with physical and occupational therapy. VS,Fishbone, I+O VS, Fishbone, I+O Vital Signs Date Time Temp Pulse Resp B/P (MAP) Pulse Ox O2 Delivery O2 Flow Rate FiO2 08/27/18 14:00 97.2 75 20 148/62 (90) 98 I&O- Last 24 Hours up to 6 AM 08/27/18 06:00 Intake Total 1500 ml Output Total 1250 ml Balance 250 ml TUCKER RICE MD Aug 27, 2018 16:19
[2018-08-27] MEDS: traZODone 100 MG TAB PO SCH (20:56)
[2018-08-27 22:00] VITALS: BP 123/78
[2018-08-28 05:43] LABS: HEMATOCRIT 31.1 % (42.0-52.0); HEMOGLOBIN 9.8 g/dl (13.5-17.5); MEAN CORPUSCULAR HEMOGLOBIN 31.2 pg (27.0-33.0); MEAN CORPUSCULAR HGB CONC 31.5 g/dl (32.0-36.5); PLATELET COUNT, AUTOMATED 133 10^3/uL (150-450); RED BLOOD COUNT 3.14 10^6/uL (4.30-6.10); WHITE BLOOD COUNT 6.4 10^3/uL (4.0-10.0)
[2018-08-28] MEDS: TORSEMIDE 20 MG TAB PO SCH (05:59)
[2018-08-28] MEDS: HEPARIN SOD (PORCINE) 5000 UNITS/ML VIAL SQ SCH ×2 (05:59→20:21)
[2018-08-28] MEDS: OMEPRAZOLE 20 MG CAP PO SCH (05:59)
[2018-08-28] MEDS: FLUoxetine 20 MG CAP PO SCH (05:59)
[2018-08-28 06:00] VITALS: BP 126/65
[2018-08-28] MEDS: PREGABALIN 100 MG CAP (LYRICA) PO SCH ×2 (06:00→20:21)
[2018-08-28] MEDS: POTASSIUM CHLORIDE 10 MEQ SR TABLET PO SCH (06:00)
[2018-08-28] MEDS: MOM 30ML SUSPENSION UDC PO SCH ×4 (06:00→23:41)
[2018-08-28] MEDS: METOPROLOL TART 50 MG TAB PO SCH ×2 (06:00→20:21)
[2018-08-28] MEDS: SENOKOT S TAB PO SCH ×2 (06:01→20:21)
[2018-08-28 06:06] LABS: ALBUMIN 2.6 GM/DL (3.2-5.2); CALCIUM LEVEL 8.1 MG/DL (8.8-10.2); CREATININE FOR GFR 2.32 MG/DL (0.70-1.30); GLOMERULAR FILTRATION RATE 30.5 (>49); PHOSPHORUS LEVEL 4.4 MG/DL (2.5-4.9); POTASSIUM SERUM 4.2 MEQ/L (3.5-5.1)
[2018-08-28] MEDS: (RENVELA) SEVELAMER **CARBONate** 800 MG TAB PO SCH ×3 (08:01→18:02)
[2018-08-28] MEDS: NYSTATIN 100,000 UNITS/GM TOPICAL PWD 15 GM TOP SCH ×2 (08:02→20:22)
[2018-08-28] MEDS ORDERED: HEPARIN 1,000 UNITS/ML 10ML VIAL (FOR RADIOLOGY& DIALYSIS ONLY) XX ONE (11:00)
[2018-08-28] MEDS ORDERED: HEPARIN 1,000 UNITS/ML 10ML VIAL (FOR RADIOLOGY& DIALYSIS ONLY) IV ONE (11:00)
[2018-08-28 12:35] VITALS: BP 121/73
[2018-08-28 14:00] VITALS: BP 118/67
--- NOTE | 2018-08-28 17:56 | IPN ---
DATE: 08/28/2018 Mr. Eng is seen this morning during dialysis. He is feeling about the same and denies any new complaints. He is tolerating his dialysis treatment well. PHYSICAL EXAMINATION: Temperature 97.7 degrees Fahrenheit, heart rate 70 per minute and respiratory rate 16 per minute. Blood pressure 121/73 mmHg and oxygen saturation 97% on room air. Head is atraumatic. Neck: Supple and without jugular venous distention (JVD) or thyroid enlargement. Heart sounds are regular and lungs with slightly diminished breath sounds bilaterally. Abdomen: Obese, soft and nontender. Extremities: Without any cyanosis or clubbing. Today's labs show WBC count 6.4, hemoglobin 9.8 and hematocrit 31.0. Sodium 138, potassium 4.2, CO2 29, BUN 57 and creatinine 2.32. PROBLEMS: 1. End-stage renal disease. The patient is being dialyzed today, and he is tolerating dialysis treatment well. His electrolytes are within normal range and volume status seems reasonably well compensated. 2. Anemia. No change and anemia has been stable. He will continue to receive Aranesp once a week. 3. Generalized weakness. The patient is waiting for long-term [facility] placement. He has failed any further rehab.
[2018-08-28] MEDS: traZODone 100 MG TAB PO SCH (20:21)
[2018-08-28 22:00] VITALS: BP 120/60
[2018-08-29] MEDS: MOM 30ML SUSPENSION UDC PO SCH ×2 (05:27→11:00)
[2018-08-29 06:00] VITALS: BP 117/65
[2018-08-29] MEDS: HEPARIN SOD (PORCINE) 5000 UNITS/ML VIAL SQ SCH ×2 (08:11→20:39)
[2018-08-29] MEDS: (RENVELA) SEVELAMER **CARBONate** 800 MG TAB PO SCH ×3 (08:11→17:25)
[2018-08-29] MEDS: SENOKOT S TAB PO SCH ×2 (08:12→20:38)
[2018-08-29] MEDS: FLUoxetine 20 MG CAP PO SCH (08:12)
[2018-08-29] MEDS: POTASSIUM CHLORIDE 10 MEQ SR TABLET PO SCH (08:12)
[2018-08-29] MEDS: PREGABALIN 100 MG CAP (LYRICA) PO SCH ×2 (08:12→20:38)
[2018-08-29] MEDS: TORSEMIDE 20 MG TAB PO SCH (08:12)
[2018-08-29] MEDS: OMEPRAZOLE 20 MG CAP PO SCH (08:12)
[2018-08-29] MEDS: NYSTATIN 100,000 UNITS/GM TOPICAL PWD 15 GM TOP SCH ×2 (08:13→20:39)
[2018-08-29] MEDS: METOPROLOL TART 50 MG TAB PO SCH ×2 (08:13→20:38)
[2018-08-29 14:00] VITALS: BP 133/57
[2018-08-29] MEDS: traZODone 100 MG TAB PO SCH (20:38)
[2018-08-29 22:00] VITALS: BP 128/75
[2018-08-30 06:00] VITALS: BP 125/68
[2018-08-30] MEDS: SENOKOT S TAB PO SCH ×2 (08:57→22:09)
[2018-08-30] MEDS: FLUoxetine 20 MG CAP PO SCH (08:57)
[2018-08-30] MEDS: PREGABALIN 100 MG CAP (LYRICA) PO SCH ×2 (08:57→22:09)
[2018-08-30] MEDS: POTASSIUM CHLORIDE 10 MEQ SR TABLET PO SCH (08:57)
[2018-08-30] MEDS: METOPROLOL TART 50 MG TAB PO SCH ×2 (08:57→22:09)
[2018-08-30] MEDS: (RENVELA) SEVELAMER **CARBONate** 800 MG TAB PO SCH ×3 (08:58→17:15)
[2018-08-30] MEDS: EUCERIN 120GM CREAM TOP SCH (08:58)
[2018-08-30] MEDS: DIAPER RELIEF PASTE (DESITIN) 60GM TOP SCH (08:58)
[2018-08-30] MEDS: TORSEMIDE 20 MG TAB PO SCH (08:58)
[2018-08-30] MEDS: OMEPRAZOLE 20 MG CAP PO SCH (08:58)
[2018-08-30] MEDS: HEPARIN SOD (PORCINE) 5000 UNITS/ML VIAL SQ SCH ×2 (08:59→22:07)
[2018-08-30] MEDS: NYSTATIN 100,000 UNITS/GM TOPICAL PWD 15 GM TOP SCH ×2 (09:24→22:10)
[2018-08-30 14:00] VITALS: BP 143/84
[2018-08-30 22:00] VITALS: BP 125/72
[2018-08-30] MEDS: traZODone 100 MG TAB PO SCH (22:09)
[2018-08-31 06:00] VITALS: BP 129/70
[2018-08-31] MEDS: (RENVELA) SEVELAMER **CARBONate** 800 MG TAB PO SCH ×3 (06:56→18:12)
[2018-08-31] MEDS: OMEPRAZOLE 20 MG CAP PO SCH (06:56)
[2018-08-31] MEDS: METOPROLOL TART 50 MG TAB PO SCH ×2 (06:56→21:32)
[2018-08-31] MEDS: PREGABALIN 100 MG CAP (LYRICA) PO SCH ×2 (06:57→21:32)
[2018-08-31] MEDS: FLUoxetine 20 MG CAP PO SCH (06:57)
[2018-08-31] MEDS: TORSEMIDE 20 MG TAB PO SCH (06:57)
[2018-08-31] MEDS: POTASSIUM CHLORIDE 10 MEQ SR TABLET PO SCH (06:57)
[2018-08-31] MEDS: SENOKOT S TAB PO SCH ×2 (06:57→21:30)
[2018-08-31] MEDS: HEPARIN SOD (PORCINE) 5000 UNITS/ML VIAL SQ SCH ×2 (06:58→21:32)
[2018-08-31] MEDS: NYSTATIN 100,000 UNITS/GM TOPICAL PWD 15 GM TOP SCH ×2 (06:58→21:32)
[2018-08-31 14:00] VITALS: BP 123/60
[2018-08-31] MEDS: traZODone 100 MG TAB PO SCH (21:32)
[2018-08-31 22:00] VITALS: BP 125/69
[2018-09-01 06:00] VITALS: BP 119/72
[2018-09-01] MEDS: SENOKOT S TAB PO SCH ×2 (07:12→23:07)
[2018-09-01] MEDS: PREGABALIN 100 MG CAP (LYRICA) PO SCH ×2 (07:13→23:04)
[2018-09-01] MEDS: POTASSIUM CHLORIDE 10 MEQ SR TABLET PO SCH (07:13)
[2018-09-01] MEDS: FLUoxetine 20 MG CAP PO SCH (07:13)
[2018-09-01] MEDS: OMEPRAZOLE 20 MG CAP PO SCH (07:13)
[2018-09-01] MEDS: HEPARIN SOD (PORCINE) 5000 UNITS/ML VIAL SQ SCH ×2 (07:14→23:07)
[2018-09-01] MEDS: TORSEMIDE 20 MG TAB PO SCH (07:14)
[2018-09-01] MEDS: METOPROLOL TART 50 MG TAB PO SCH ×2 (07:15→23:06)
[2018-09-01] MEDS: (RENVELA) SEVELAMER **CARBONate** 800 MG TAB PO SCH ×3 (08:00→17:33)
[2018-09-01] MEDS: NYSTATIN 100,000 UNITS/GM TOPICAL PWD 15 GM TOP SCH ×2 (09:00→23:08)
[2018-09-01 10:58] LABS: HEMATOCRIT 33.7 % (42.0-52.0); HEMOGLOBIN 10.6 g/dl (13.5-17.5); MEAN CORPUSCULAR HEMOGLOBIN 32.2 pg (27.0-33.0); MEAN CORPUSCULAR HGB CONC 31.5 g/dl (32.0-36.5); MEAN CORPUSCULAR VOLUME 102.4 fl (80.0-96.0); PLATELET COUNT, AUTOMATED 126 10^3/uL (150-450); RED BLOOD COUNT 3.29 10^6/uL (4.30-6.10); WHITE BLOOD COUNT 6.5 10^3/uL (4.0-10.0)
[2018-09-01 11:01] LABS: CALCIUM LEVEL 7.8 MG/DL (8.8-10.2); CREATININE FOR GFR 2.48 MG/DL (0.70-1.30); GLOMERULAR FILTRATION RATE 28.3 (>49); POTASSIUM SERUM 3.7 MEQ/L (3.5-5.1)
[2018-09-01] MEDS ORDERED: HEPARIN 1,000 UNITS/ML 10ML VIAL (FOR RADIOLOGY& DIALYSIS ONLY) XX ONE (12:00)
[2018-09-01] MEDS ORDERED: HEPARIN 1,000 UNITS/ML 10ML VIAL (FOR RADIOLOGY& DIALYSIS ONLY) IV ONE (12:00)
[2018-09-01 14:00] VITALS: BP 116/63
--- NOTE | 2018-09-01 18:14 | IPN ---
DATE: 09/01/2018 SUBJECTIVE: Rocio is seen and examined this morning in the hemodialysis unit receiving his treatment. Denies any overnight issues or concerns. He is tolerating dialysis without any problems. VITAL SIGNS: Temperature 97.5, pulse 82, respiratory rate 17, blood pressure 116/93, saturating 98% on room air. Intake yesterday was 1.9 liters. Dialysis today removed 1 liter. Urine output today was 700 mL. GENERAL: Patient is seen lying in bed receiving his treatment, awake, alert, oriented, no acute distress. Extraocular muscles are intact. Tongue is moist. Neck is supple. There is no jugular venous distension. The right-sided Perma-Cath is presently in use. Heart sounds are regular. S1-S2. Lungs are clear to auscultation bilaterally. No crackle rale or rhonchus. Abdomen is soft, obese and nontender. There are bowel sounds. The left lower extremity is wrapped in dressings LABORATORY DATA: Hemoglobin 10.6, platelet 126. Sodium 139, potassium 3.7. INPATIENT MEDICATIONS: Reviewed by myself and no changes from prior. PROBLEMS: 1. End-stage renal disease. The patient continues on twice weekly chronic hemodialysis treatment. He does have significant residual renal function and continues on chronic diuretic therapy with torsemide 40 mg by mouth daily. His electrolytes and volume status are acceptable. No changes are being made to the current prescription. He tells me he has already started the process for a fistula creation with a vascular surgeon in [place]. 2. Anemia. Hemoglobin has improved and is at goal. He continues on once weekly Aranesp and he did receive iron earlier during the admission 3. Morbid obesity and generalized deconditioning and weakness. He is waiting for a long-term detention placement.
[2018-09-01] MEDS: MOM 30ML SUSPENSION UDC PO PRN (19:02)
[2018-09-01 22:00] VITALS: BP 129/67
[2018-09-01] MEDS: SENNA 8.6 MG TAB (SENOKOT) PO PRN (23:04)
[2018-09-01] MEDS: traZODone 100 MG TAB PO SCH (23:07)
[2018-09-02] MEDS ORDERED: CALCIUM CARBONATE 500 MG CHEW U/D PO ONE (03:00)
[2018-09-02 06:00] VITALS: BP 146/78
[2018-09-02] MEDS: TORSEMIDE 20 MG TAB PO SCH (09:01)
[2018-09-02] MEDS: PREGABALIN 100 MG CAP (LYRICA) PO SCH ×2 (09:01→20:30)
[2018-09-02] MEDS: SENOKOT S TAB PO SCH ×2 (09:01→20:29)
[2018-09-02] MEDS: HEPARIN SOD (PORCINE) 5000 UNITS/ML VIAL SQ SCH ×2 (09:01→20:31)
[2018-09-02] MEDS: POTASSIUM CHLORIDE 10 MEQ SR TABLET PO SCH (09:02)
[2018-09-02] MEDS: OMEPRAZOLE 20 MG CAP PO SCH (09:02)
[2018-09-02] MEDS: (RENVELA) SEVELAMER **CARBONate** 800 MG TAB PO SCH ×3 (09:02→17:28)
[2018-09-02] MEDS: METOPROLOL TART 50 MG TAB PO SCH ×2 (09:02→20:30)
[2018-09-02] MEDS: FLUoxetine 20 MG CAP PO SCH (09:02)
[2018-09-02] MEDS: NYSTATIN 100,000 UNITS/GM TOPICAL PWD 15 GM TOP SCH ×2 (09:03→20:31)
[2018-09-02] MEDS: MOM 30ML SUSPENSION UDC PO PRN (11:34)
[2018-09-02 14:00] VITALS: BP 139/68
--- NOTE | 2018-09-02 17:58 | IPNPDOC ---
Text Note Date of Service The patient was seen on 09/02/18. NOTE The patient has remained medically stable. He notes that he did develop some stomach discomfort and headache with dialysis yesterday. He also has intermittent difficulty with constipation. He is usually responsive to milk of magnesia. He is currently passing gas. Physical exam: HENT: Neck is supple without adenopathy or thyromegaly, oral mucosa is moist Cardiovascular: Regular rate and rhythm with a grade 2/6 systolic murmur. Respiratory: Clear to auscultation with no rhonchi, rales, wheezes or cough. Abdomen: soft, nondistended, nontender, notable central obesity, bowel tones are present; dialysis catheter is in place to his right upper chest Extremities: The patient has remarkable joint changes, especially to his fingers and wrists consistent with significant arthritis, He does not exhibit remarkable lower extremity edema Assessment/plan: 1. Chronic kidney disease stage V--patient continues with his usual hemodialysis schedule. We appreciate the assistance from the nephrology service. We do note recommendations to continue his current diuretics as well. 2. Constipation--patient reports poor response to senna/Senokot. He has had some response to scheduled milk of magnesia. He uses this at home, at 60 mL's per dose. Disposition: The patient continues to wait for a senior living site that can accommodate his hemodialysis schedule; he will require transport with bariatric assistance; there are no chair times currently available adjacent to senior living facility. In the interim, he does continue to work with physical and occupational therapy. VS,Fishbone, I+O VS, Fishbone, I+O Vital Signs Date Time Temp Pulse Resp B/P (MAP) Pulse Ox O2 Delivery O2 Flow Rate FiO2 09/02/18 09:02 66 146/78 09/02/18 06:00 98.4 20 93 I&O- Last 24 Hours up to 6 AM 09/02/18 06:00 Intake Total 1950 ml Output Total 1650 ml Balance 300 ml TUCKER RICE MD Sep 02, 2018 17:57
[2018-09-02] MEDS: traZODone 100 MG TAB PO SCH (20:29)
[2018-09-02 22:00] VITALS: BP 123/66
[2018-09-03 06:00] VITALS: BP 117/65
[2018-09-03] MEDS: FLUoxetine 20 MG CAP PO SCH (08:11)
[2018-09-03] MEDS: (RENVELA) SEVELAMER **CARBONate** 800 MG TAB PO SCH ×3 (08:11→17:42)
[2018-09-03] MEDS: TORSEMIDE 20 MG TAB PO SCH (08:11)
[2018-09-03] MEDS: SENOKOT S TAB PO SCH ×2 (08:12→21:19)
[2018-09-03] MEDS: HEPARIN SOD (PORCINE) 5000 UNITS/ML VIAL SQ SCH ×2 (08:12→21:19)
[2018-09-03] MEDS: OMEPRAZOLE 20 MG CAP PO SCH (08:12)
[2018-09-03] MEDS: PREGABALIN 100 MG CAP (LYRICA) PO SCH ×2 (08:12→21:19)
[2018-09-03] MEDS: POTASSIUM CHLORIDE 10 MEQ SR TABLET PO SCH (08:12)
[2018-09-03] MEDS: DIAPER RELIEF PASTE (DESITIN) 60GM TOP SCH (08:13)
[2018-09-03] MEDS: NYSTATIN 100,000 UNITS/GM TOPICAL PWD 15 GM TOP SCH ×2 (08:13→21:20)
[2018-09-03] MEDS: METOPROLOL TART 50 MG TAB PO SCH ×2 (08:13→21:19)
[2018-09-03] MEDS: EUCERIN 120GM CREAM TOP SCH (08:13)
[2018-09-03 14:00] VITALS: BP 119/62
[2018-09-03] MEDS: traZODone 100 MG TAB PO SCH (21:18)
[2018-09-03 22:00] VITALS: BP 134/71
[2018-09-04 06:00] VITALS: BP 124/70
[2018-09-04] MEDS: TORSEMIDE 20 MG TAB PO SCH (06:17)
[2018-09-04] MEDS: PREGABALIN 100 MG CAP (LYRICA) PO SCH ×2 (06:20→20:37)
[2018-09-04] MEDS: SENOKOT S TAB PO SCH ×2 (06:20→20:37)
[2018-09-04] MEDS: POTASSIUM CHLORIDE 10 MEQ SR TABLET PO SCH (06:20)
[2018-09-04] MEDS: METOPROLOL TART 50 MG TAB PO SCH ×2 (06:20→20:37)
[2018-09-04] MEDS: OMEPRAZOLE 20 MG CAP PO SCH (06:20)
[2018-09-04] MEDS: FLUoxetine 20 MG CAP PO SCH (06:20)
[2018-09-04] MEDS: NYSTATIN 100,000 UNITS/GM TOPICAL PWD 15 GM TOP SCH ×2 (06:21→20:38)
[2018-09-04] MEDS: HEPARIN SOD (PORCINE) 5000 UNITS/ML VIAL SQ SCH ×2 (06:21→20:37)
[2018-09-04] MEDS: (RENVELA) SEVELAMER **CARBONate** 800 MG TAB PO SCH ×3 (06:25→17:18)
[2018-09-04 09:56] LABS: CALCIUM LEVEL 8.2 MG/DL (8.8-10.2); CREATININE FOR GFR 2.52 MG/DL (0.70-1.30); GLOMERULAR FILTRATION RATE 27.7 (>49); POTASSIUM SERUM 3.5 MEQ/L (3.5-5.1)
[2018-09-04 09:57] LABS: HEMATOCRIT 34.4 % (42.0-52.0); HEMOGLOBIN 10.9 g/dl (13.5-17.5); MEAN CORPUSCULAR HEMOGLOBIN 32.2 pg (27.0-33.0); MEAN CORPUSCULAR HGB CONC 31.7 g/dl (32.0-36.5); MEAN CORPUSCULAR VOLUME 101.8 fl (80.0-96.0); PLATELET COUNT, AUTOMATED 108 10^3/uL (150-450); RED BLOOD COUNT 3.38 10^6/uL (4.30-6.10); WHITE BLOOD COUNT 5.9 10^3/uL (4.0-10.0)
[2018-09-04] MEDS ORDERED: HEPARIN 1,000 UNITS/ML 10ML VIAL (FOR RADIOLOGY& DIALYSIS ONLY) IV ONE (11:15)
[2018-09-04] MEDS ORDERED: HEPARIN 1,000 UNITS/ML 10ML VIAL (FOR RADIOLOGY& DIALYSIS ONLY) XX ONE (11:15)
--- NOTE | 2018-09-04 13:43 | IPN ---
DATE: 09/04/2018 SUBJECTIVE: The patient was seen and examined this morning in the hemodialysis unit while he was receiving treatment. He has a right sided PermaCath, which is presently in use. There have been no issues or concerns. No adverse events reported. OBJECTIVE: VITAL SIGNS: Temperature is 98.4, pulse 71, respiratory rate 18, blood pressure 124/70, pulse oximetry 98% on room air. GENERAL: The patient is lying in bed and currently receiving hemodialysis. He is awake, alert and oriented. He appears in no acute distress. CARDIOVASCULAR: Normal S1, S2. Regular rate and rhythm. The patient has a right sided PermaCath presently in use. No jugular venous distention (JVD) noted. PULMONARY: Lungs are clear to auscultation without wheezes, rhonchi or rales. ABDOMEN: Morbidly obese, soft, nontender to palpation in upper quadrants. Positive bowel sounds. EXTREMITIES: Left lower extremity is wrapped in dressing. LABORATORY DATA: Hematology: White blood cell count 5.9, hemoglobin 10.9, hematocrit 34.4, platelet count 108. Chemistry: Sodium 138, potassium 3.5, chloride 99, carbon dioxide 34, BUN 51, creatinine 2.52, fasting glucose 110, calcium 8.2. ASSESSMENT AND PLAN: 1. End stage renal disease on hemodialysis twice weekly. The patient is continued on his chronic hemodialysis treatment. He is receiving hemodialysis today. He did have residual renal function and is continued on chronic therapy, which includes torsemide 40 mg daily orally. His electrolytes and volume status are acceptable. No changes have been made to his current prescription. 2. Anemia. The patient has chronic anemia. He receives once weekly Aranesp. We will continue to monitor. 3. Morbid obesity and general deconditioning. The patient is currently waiting long-term placement in a custodial. He will receive his maintenance dialysis twice weekly while he awaits placement. ANU
[2018-09-04] MEDS: MOM 30ML SUSPENSION UDC PO PRN (17:47)
[2018-09-04] MEDS: traZODone 100 MG TAB PO SCH (20:37)
[2018-09-04 22:00] VITALS: BP 125/65
[2018-09-05 06:00] VITALS: BP 135/71
[2018-09-05] MEDS: (RENVELA) SEVELAMER **CARBONate** 800 MG TAB PO SCH ×3 (08:53→17:44)
[2018-09-05] MEDS: FLUoxetine 20 MG CAP PO SCH (08:54)
[2018-09-05] MEDS: NYSTATIN 100,000 UNITS/GM TOPICAL PWD 15 GM TOP SCH ×2 (08:54→20:32)
[2018-09-05] MEDS: PREGABALIN 100 MG CAP (LYRICA) PO SCH ×2 (08:54→20:31)
[2018-09-05] MEDS: POTASSIUM CHLORIDE 10 MEQ SR TABLET PO SCH (08:54)
[2018-09-05] MEDS: HEPARIN SOD (PORCINE) 5000 UNITS/ML VIAL SQ SCH (08:55)
[2018-09-05] MEDS: TORSEMIDE 20 MG TAB PO SCH (08:55)
[2018-09-05] MEDS: METOPROLOL TART 50 MG TAB PO SCH ×2 (08:55→20:32)
[2018-09-05] MEDS: SENOKOT S TAB PO SCH ×2 (08:55→20:31)
[2018-09-05] MEDS: OMEPRAZOLE 20 MG CAP PO SCH (08:55)
[2018-09-05] MEDS: MOM 30ML SUSPENSION UDC PO PRN (18:30)
[2018-09-05] MEDS: SENNA 8.6 MG TAB (SENOKOT) PO PRN (18:31)
[2018-09-05] MEDS: MIRALAX *UNIT DOSE* 17GM PACKET PO PRN ×2 (18:31→23:25)
[2018-09-05] MEDS: traZODone 100 MG TAB PO SCH (20:31)
[2018-09-05 20:32] VITALS: BP 132/77
[2018-09-06 06:00] VITALS: BP 128/76
[2018-09-06] MEDS: MOM 30ML SUSPENSION UDC PO PRN (06:29)
[2018-09-06 08:09] LABS: BASO % 0.5 % (0.0-1.0); EOS # 0.4 10^3/uL (0.0-0.50); EOS % 6.5 % (0.0-3.0); HEMATOCRIT 37.9 % (42.0-52.0); HEMOGLOBIN 11.7 g/dl (13.5-17.5); LYMPH # 1.5 10^3/uL (1.5-4.5); LYMPH % 22.2 % (24.0-44.0); MEAN CORPUSCULAR HEMOGLOBIN 31.5 pg (27.0-33.0); MEAN CORPUSCULAR HGB CONC 30.9 g/dl (32.0-36.5); MEAN CORPUSCULAR VOLUME 101.9 fl (80.0-96.0); MONO # 0.5 10^3/uL (0.0-0.8); MONO % 6.8 % (0.0-5.0); NEUTROPHILS # 4.2 10^3/uL (1.8-7.7); NEUTROPHILS % 63.5 % (36.0-66.0); PLATELET COUNT, AUTOMATED 123 10^3/uL (150-450); RED BLOOD COUNT 3.72 10^6/uL (4.30-6.10); WHITE BLOOD COUNT 6.6 10^3/uL (4.0-10.0)
[2018-09-06] MEDS: SENNA 8.6 MG TAB (SENOKOT) PO PRN (08:18)
[2018-09-06] MEDS: PREGABALIN 100 MG CAP (LYRICA) PO SCH (08:19)
[2018-09-06] MEDS: TORSEMIDE 20 MG TAB PO SCH (08:19)
[2018-09-06] MEDS: METOPROLOL TART 50 MG TAB PO SCH (08:19)
[2018-09-06] MEDS: POTASSIUM CHLORIDE 10 MEQ SR TABLET PO SCH (08:19)
[2018-09-06] MEDS: (RENVELA) SEVELAMER **CARBONate** 800 MG TAB PO SCH (08:19)
[2018-09-06] MEDS: FLUoxetine 20 MG CAP PO SCH (08:19)
[2018-09-06] MEDS: SENOKOT S TAB PO SCH (08:19)
[2018-09-06] MEDS: OMEPRAZOLE 20 MG CAP PO SCH (08:19)
[2018-09-06] MEDS: EUCERIN 120GM CREAM TOP SCH (08:20)
[2018-09-06] MEDS: NYSTATIN 100,000 UNITS/GM TOPICAL PWD 15 GM TOP SCH (08:20)
[2018-09-06] MEDS: DIAPER RELIEF PASTE (DESITIN) 60GM TOP SCH (08:20)
[2018-09-06 08:33] LABS: CALCIUM LEVEL 8.5 MG/DL (8.8-10.2); CREATININE FOR GFR 2.07 MG/DL (0.70-1.30); GLOMERULAR FILTRATION RATE 34.8 (>49); MAGNESIUM LEVEL 2.1 MG/DL (1.8-2.4)
[2018-09-06] MEDS ORDERED: BISACODYL 10 MG SUPP PR ONE (10:15)
[2018-09-06] MEDS ORDERED: PREG100CA PO (10:57)
[2018-09-06] MEDS ORDERED: TORS100T PO (10:57)
[2018-09-06] MEDS ORDERED: TRAZ-163 PO (10:57)
--- NOTE | 2018-09-06 16:31 | DS.PDOC ---
Discharge Summary General Date of Admission Aug 03, 2018 at 19:06 Date of Discharge 09/06/2018 Discharge Summary PROCEDURES PERFORMED DURING STAY: [None]. ADMITTING DIAGNOSES / DISCHARGE DIAGNOSES: General weakness. Constipation. End-stage renal disease, on hemodialysis. Anemia. Hypertension. Coronary artery disease, Hx of [place]. Peripheral vascular disease. Bilateral venous stasis, ulcer left lower extremity. Morbid obesity. Depression. Insomnia DVT prophylaxis COMPLICATIONS/CHIEF COMPLAINT: Generalized weakness HISTORY OF PRESENT ILLNESS / HOSPITAL COURSE: Patient is a 63-year-old male with a past medical history of ESRD on HD, HTN, PVD, CAD (Hx of [place]), Bilateral venous stasis, Morbid obesity, presented to the ER with generalized weakness. Patient was from home and is unable to care for himself. Patient is looking for long-term placement. Patient had remained inpatient until appropriate housing was established. Ultimately patient was accepted at [facility] on 09/06/2018 patient was transferred to their care. DISCHARGE MEDICATIONS: Please see below. ALLERGIES: Please see below. PHYSICAL EXAMINATION ON DISCHARGE: Vitals (See below) General: Lying in bed, no acute distress, comfortable, AAOx3 HEENT: NC, AT CVS: RRR, +S1S2 Lungs: Fair air entry b/l, no evidence of wheezing, rhonchi, rales Abdomen: Soft, ND, NT, morbid obesity Extremities: Chronic venous stasis changes, - Calf tenderness LABORATORY DATA: Please see below. ACTIVITY: [As tolerated]. DISCHARGE PLAN: Follow up with Dr. Lovell within 7 days Remain compliant with treatment plan and medications Return to the ER if you experience any problems DISPOSITION: [facility]. DISCHARGE CONDITION: [Stable]. TIME SPENT ON DISCHARGE: 32 minutes Vital Signs/I&Os Vital Signs Date Time Temp Pulse Resp B/P (MAP) Pulse Ox O2 Delivery O2 Flow Rate FiO2 09/06/18 06:00 98.2 60 15 128/76 (93) 94 I&O- Last 24 Hours up to 6 AM 09/06/18 06:00 Intake Total 1615 ml Output Total 1750 ml Balance -135 ml Laboratory Data Labs 24H Laboratory Tests 2 09/06/18 07:49: Immature Granulocyte % (Auto) 0.5, White Blood Count 6.6, Red Blood Count 3.72L, Hemoglobin 11.7L, Hematocrit 37.9L, Mean Corpuscular Volume 101.9H, Mean Corpuscular Hemoglobin 31.5, Mean Corpuscular Hemoglobin Concent 30.9L, Red Cell Distribution Width 16.3H, Platelet Count 123L, Neutrophils (%) (Auto) 63.5, Lymphocytes (%) (Auto) 22.2L, Monocytes (%) (Auto) 6.8H, Eosinophils (%) (Auto) 6.5H, Basophils (%) (Auto) 0.5, Neutrophils # (Auto) 4.2, Lymphocytes # (Auto) 1.5, Monocytes # (Auto) 0.5, Eosinophils # (Auto) 0.4, Basophils # (Auto) 0.0, Nucleated Red Blood Cells % (auto) 0.0, Anion Gap 5L, Glomerular Filtration Rate 34.8L, Blood Urea Nitrogen 40H, Creatinine 2.07H, Sodium Level 138, Potassium Level 4.0, Chloride Level 101, Carbon Dioxide Level 32, Calcium Level 8.5L, Magnesium Level 2.1 CBC/BMP Laboratory Tests 09/06/18 07:49 Red Blood Count 3.72 L, Mean Corpuscular Volume 101.9 H, Mean Corpuscular Hemoglobin 31.5, Mean Corpuscular Hemoglobin Concent 30.9 L, Red Cell Distribution Width 16.3 H, Neutrophils (%) (Auto) 63.5, Lymphocytes (%) (Auto) 22.2 L, Monocytes (%) (Auto) 6.8 H, Eosinophils (%) (Auto) 6.5 H, Basophils (%) (Auto) 0.5, Neutrophils # (Auto) 4.2, Lymphocytes # (Auto) 1.5, Monocytes # (Auto) 0.5, Eosinophils # (Auto) 0.4, Basophils # (Auto) 0.0, Calcium Level 8.5 L Discharge Medications Scheduled Fluoxetine Hcl (Fluoxetine HCl) 20 Mg Capsule, 20 MG PO DAILY, (Reported) Metoprolol Tartrate (Metoprolol Tartrate) 50 Mg Tablet, 50 MG PO BID, (Reported) Omeprazole (Omeprazole) 20 Mg Capsule.dr, 20 MG PO DAILY, (Reported) Pregabalin (Lyrica) 100 Mg Capsule, 100 MG PO BID Sennosides/Docusate Sodium (Docusate Sodium-Senna Tablet) 1 Each Tablet, 1 TAB PO BID, (Reported) Sevelamer Carbonate (Sevelamer Carbonate) 800 Mg Tablet, 800 MG PO WM, (Reported) Torsemide (Torsemide) 100 Mg Tablet, 50 MG PO DAILY Scheduled PRN Polyethylene Glycol 3350 (Miralax) 119 Gm Powder, 17 GM PO DAILY PRN for CONSTIPATION, (Reported) Trazodone HCl (Trazodone HCl) 100 Mg Tablet, 100 MG PO QHS PRN for SLEEP Allergies Coded Allergies: vancomycin (Verified Adverse Reaction, Severe, Cardiac Arrest, 08/03/18) ADDED PER INSTRUCTION FROM KEE ESTRADA MD Sep 06, 2018 16:31
[2018-09-07] MEDS ORDERED: TORSEMIDE (DEMADEX) 50 MG PER 1/2 TAB PO SCH (09:00)
== END 2018-09-06 12:35 | DRG 947 ==
LOC: M ED 15:27 → EDBD 15:27 → M ED INP 19:06 → EEVIPCON 19:06 → M MSPAV 20:25
PROVIDERS: ADMIT Hospitalist; ATTEND Internal Medicine
PROC: 5A1D70Z Performance of Urinary Filtration, Intermittent, Less than 6 Hours Per Day (ICD-10-PCS; principal; 2018-08-10)
DX: R53.1 Weakness (principal); N18.6 End stage renal disease; I12.0 Hypertensive chronic kidney disease with stage 5 chronic kidney disease or end stage renal disease; E87.1 Hypo-osmolality and hyponatremia; L97.928 Non-pressure chronic ulcer of unspecified part of left lower leg with other specified severity; N39.0 Urinary tract infection, site not specified; Z68.41 Body mass index [BMI] 40.0-44.9, adult; E44.0 Moderate protein-calorie malnutrition; I25.10 Atherosclerotic heart disease of native coronary artery without angina pectoris; I73.9 Peripheral vascular disease, unspecified; I87.2 Venous insufficiency (chronic) (peripheral); E66.01 Morbid (severe) obesity due to excess calories; B96.1 Klebsiella pneumoniae [K. pneumoniae] as the cause of diseases classified elsewhere; I25.2 Old myocardial infarction; D63.1 Anemia in chronic kidney disease; E87.6 Hypokalemia; F32.9 Major depressive disorder, single episode, unspecified; K59.00 Constipation, unspecified; G47.00 Insomnia, unspecified; Z88.1 Allergy status to other antibiotic agents; Z79.899 Other long term (current) drug therapy; Z99.2 Dependence on renal dialysis; Z74.01 Bed confinement status

== ENCOUNTER → 2018-09-18 | Outpatient (REF) ==
[~2018-09-18] MED LIST changes: +MIRA3350 PO; +NOTE; +OMEP-218 PO; +SENN1TAB36 PO; +SEVE800T3 PO; +TORS100T PO
[2018-09-18 08:38] LABS: HEMATOCRIT 36.8 % (42.0-52.0); HEMOGLOBIN 11.6 g/dl (13.5-17.5); MEAN CORPUSCULAR HGB CONC 31.5 g/dl (32.0-36.5); MEAN CORPUSCULAR VOLUME 98.4 fl (80.0-96.0); PLATELET COUNT, AUTOMATED 122 10^3/uL (150-450); RED BLOOD COUNT 3.74 10^6/uL (4.30-6.10); WHITE BLOOD COUNT 6.5 10^3/uL (4.0-10.0)
[2018-09-18 09:02] LABS: CALCIUM LEVEL 7.7 MG/DL (8.8-10.2); CREATININE FOR GFR 2.74 MG/DL (0.70-1.30); GLOMERULAR FILTRATION RATE 25.2 (>49); POTASSIUM SERUM 3.5 MEQ/L (3.5-5.1)
== END ==
PROVIDERS: ATTEND Physician Assistant
DX: D64.9 Anemia, unspecified (principal)

== ENCOUNTER → 2018-10-02 | Outpatient (REF) ==
[2018-10-02 09:49] LABS: HEMATOCRIT 36.2 % (42.0-52.0); HEMOGLOBIN 11.4 g/dl (13.5-17.5); MEAN CORPUSCULAR HEMOGLOBIN 30.6 pg (27.0-33.0); MEAN CORPUSCULAR HGB CONC 31.5 g/dl (32.0-36.5); MEAN CORPUSCULAR VOLUME 97.3 fl (80.0-96.0); PLATELET COUNT, AUTOMATED 120 10^3/uL (150-450); RED BLOOD COUNT 3.72 10^6/uL (4.30-6.10); WHITE BLOOD COUNT 6.2 10^3/uL (4.0-10.0)
[2018-10-02 10:18] LABS: CALCIUM LEVEL 7.9 MG/DL (8.8-10.2); CREATININE FOR GFR 2.64 MG/DL (0.70-1.30); GLOMERULAR FILTRATION RATE 26.3 (>49); POTASSIUM SERUM 3.7 MEQ/L (3.5-5.1)
== END ==
PROVIDERS: ATTEND Internal Medicine
DX: D64.9 Anemia, unspecified (principal); N18.6 End stage renal disease

== ENCOUNTER 2018-10-06 20:18 | Emergency (ER) | payer MEDICARE, MEDICAID ==
[~2018-10-06] VITALS: Ht 182.9 cm; Wt 153.2 kg
--- NOTE | 2018-10-06 21:17 | REPVR ---
EXAM: CT Head Without Contrast EXAM DATE/TIME: 10/06/2018 8:37 PM CLINICAL HISTORY: 63 years old, male; Syncope and collapse TECHNIQUE: Imaging protocol: Computed tomography images of the head without contrast. Radiation optimization: All CT scans at this facility use at least one of these dose optimization techniques: automated exposure control; mA and/or kV adjustment per patient size (includes targeted exams where dose is matched to clinical indication); or iterative reconstruction. COMPARISON: No relevant prior studies available. FINDINGS: Brain: Streak artifact partially limits evaluation of the skull base and posterior fossa. No acute intracranial hemorrhage or mass effect as visualized. No discrete geographic area of hypoattenuation to suggest territorial infarct identified at this time. Mild generalized involutional and deep white matter microvascular ischemic changes. Ventricles: No ventriculomegaly. Bones/joints: No displaced fractures. SPECT Sinuses: Opacification of the right frontal sinus with mucoperiosteal changes. Mastoid air cells: No mastoid effusion. Soft tissues: Unremarkable. IMPRESSION: No acute intracranial abnormality as visualized. Right frontal sinus opacification may reflect chronic sinusitis. Please correlate clinically. Electronically signed by: Waqas Trevino On 10/06/2018 21:17:40 PM
[2018-10-06 21:48] LABS: BASO # 0.1 10^3/uL (0.0-0.2); BASO % 0.4 % (0.0-1.0); EOS # 0.3 10^3/uL (0.0-0.50); EOS % 2.2 % (0.0-3.0); HEMATOCRIT 39.1 % (42.0-52.0); HEMOGLOBIN 12.5 g/dl (13.5-17.5); LYMPH # 1.6 10^3/uL (1.5-4.5); LYMPH % 11.6 % (24.0-44.0); MEAN CORPUSCULAR HEMOGLOBIN 30.7 pg (27.0-33.0); MEAN CORPUSCULAR VOLUME 96.1 fl (80.0-96.0); MONO # 0.8 10^3/uL (0.0-0.8); MONO % 5.8 % (0.0-5.0); NEUTROPHILS % 79.3 % (36.0-66.0); PLATELET COUNT, AUTOMATED 147 10^3/uL (150-450); RED BLOOD COUNT 4.07 10^6/uL (4.30-6.10); WHITE BLOOD COUNT 13.8 10^3/uL (4.0-10.0)
[2018-10-06 21:59] LABS: INR 1.75; PROTHROMBIN TIME 20.2 SECONDS (11.8-14.0)
[2018-10-06 22:17] LABS: BLOOD UREA NITROGEN 28 MG/DL (7-18); CALCIUM LEVEL 9.1 MG/DL (8.8-10.2); CARBON DIOXIDE LEVEL 30 MEQ/L (21-32); CHLORIDE LEVEL 101 MEQ/L (98-107); CK-MB VALUE MASS 1.3 NG/ML (<3.6); CPK CREATINE PHOSPHOKINASE 41 U/L (39-308); CREATININE FOR GFR 1.67 MG/DL (0.70-1.30); FREE T4 1.24 NG/DL (0.76-1.46); GLOMERULAR FILTRATION RATE 44.6 (>49); GLUCOSE, FASTING 112 MG/DL (70-100); MB/CK RELATIVE INDEX 3.17 (< OR =4); POTASSIUM SERUM 4.1 MEQ/L (3.5-5.1); SODIUM LEVEL 137 MEQ/L (136-145); TROPONIN I < 0.02 NG/ML (< 0.10)
[2018-10-06 22:36] LABS: PARTIAL THROMBOPLASTIN TIME > 240.0 SECONDS (25.0-38.4)
[2018-10-06 23:45] VITALS: BP 123/63
--- NOTE | 2018-10-07 06:34 | ECGEPIP ---
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
--- NOTE | 2018-10-08 11:55 | REP ---
AP PORTABLE CHEST: 10/06/2018. Comparison: 08/03/2018. Clinical history: Syncope, near-syncope. Findings: There is a right jugular dialysis catheter terminating in the right SVC as before. Elevated right diaphragm is visible. Left CP angle poorly depicted overlying chest wall tissues is partially obscured it. No gross effusion. The posterior lower lung zone infiltrates and effusion could be excluded. Heart not grossly enlarged. The aorta is mildly tortuous. Airway intact. Impression: 1. Elevated right diaphragm with the right jugular dialysis catheter again noted. No dense consolidation or visible effusion. 2. No cardiomegaly or zachary edema. Limited examination due to hypoinflation elevated diaphragm with portable technique. Electronically Signed by Yogesh Artis MD 10/08/2018 12:17 P
== END 2018-10-06 23:59 | disposition home or self-care (01) ==
LOC: M ED 20:18
DX: R55 Syncope and collapse (principal); I44.4 Left anterior fascicular block; I45.4 Nonspecific intraventricular block; I25.10 Atherosclerotic heart disease of native coronary artery without angina pectoris; I10 Essential (primary) hypertension; N18.6 End stage renal disease; Z99.2 Dependence on renal dialysis; Z95.828 Presence of other vascular implants and grafts; Z79.899 Other long term (current) drug therapy; Z88.1 Allergy status to other antibiotic agents

== ENCOUNTER → 2018-10-08 | Outpatient (REF) | payer MEDICARE, MEDICAID ==
[2018-10-08 09:57] LABS: APPEARANCE, URINE MANUAL CLOUDY (CLEAR); COLOR, URINE MANUAL BROWN (YELLOW)
[2018-10-08 09:58] LABS: BLOOD URINE MANUAL POSITIVE (NEGATIVE); LEUKOCYTE ESTERASE, URINE MAN POSITIVE (NEGATIVE)
[2018-10-08 09:59] LABS: HEMATOCRIT 34.7 % (42.0-52.0); HEMOGLOBIN 11.3 g/dl (13.5-17.5); MEAN CORPUSCULAR HEMOGLOBIN 30.5 pg (27.0-33.0); MEAN CORPUSCULAR HGB CONC 32.6 g/dl (32.0-36.5); MEAN CORPUSCULAR VOLUME 93.8 fl (80.0-96.0); PLATELET COUNT, AUTOMATED 134 10^3/uL (150-450); WHITE BLOOD COUNT 7.7 10^3/uL (4.0-10.0)
[2018-10-08 10:00] LABS: BILIRUBIN, URINE MANUAL NEGATIVE (NEGATIVE); GLUCOSE, URINE (UA) MANUAL NEGATIVE (NEGATIVE); KETONE, URINE MANUAL NEGATIVE (NEGATIVE); NITRITE, URINE MANUAL NEGATIVE (NEGATIVE); PROTEIN, URINE MANUAL 2+ mg/dL (NEGATIVE); SPECIFIC GRAVITY,URINE MANUAL 1.015 (1.002-1.035); UROBILINOGEN, URINE MANUAL NORMAL (NORMAL)
[2018-10-08 10:10] LABS: INR 1.23; PROTHROMBIN TIME 15.2 SECONDS (11.8-14.0)
[2018-10-08 10:11] LABS: PARTIAL THROMBOPLASTIN TIME 37.1 SECONDS (25.0-38.4); WBC, URINE TNTC /hpf (0-3)
[2018-10-08 10:12] LABS: BACTERIA, URINE LARGE AMOUNT; HYALINE CAST, URINE NONE SEEN /lpf (0-1); RENAL EPITHELIAL CELLS, URINE SMALL AMOUNT /hpf; SQUAMOUS EPITHELIAL CELL URINE MOD AMOUNT /hpf (SMALL AMT)
[2018-10-08 10:13] LABS: AMORPHOUS SEDIMENT, URINE SMALL AMOUNT (NEGATIVE)
== END ==
PROVIDERS: ATTEND Internal Medicine
DX: R31.9 Hematuria, unspecified (principal)

== ENCOUNTER → 2018-10-17 | Outpatient (REF) | payer MEDICARE, MEDICAID ==
[~2018-10-17] MED LIST changes: +OMEP1CAP73 PO; -OMEP20CA4 PO; -OMEP40CA2 PO; +OMEP40CA97 PO; +SENN-53 PO; -SENN1TAB40 PO; -TRAZ-163 PO; +TRAZ-257 PO; -TRAZ10TA PO; +TRAZ1TAB12 PO; +XARE10TA PO
[2018-10-17 08:55] LABS: HEMATOCRIT 34.5 % (42.0-52.0); HEMOGLOBIN 10.9 g/dl (13.5-17.5); MEAN CORPUSCULAR HEMOGLOBIN 30.8 pg (27.0-33.0); MEAN CORPUSCULAR HGB CONC 31.6 g/dl (32.0-36.5); MEAN CORPUSCULAR VOLUME 97.5 fl (80.0-96.0); RED BLOOD COUNT 3.54 10^6/uL (4.30-6.10); WHITE BLOOD COUNT 6.4 10^3/uL (4.0-10.0)
[2018-10-17 08:57] LABS: PLATELET COUNT, AUTOMATED 92 10^3/uL (150-450)
[2018-10-17 09:13] LABS: CALCIUM LEVEL 7.7 MG/DL (8.8-10.2); CREATININE FOR GFR 1.73 MG/DL (0.70-1.30); GLOMERULAR FILTRATION RATE 42.8 (>49); POTASSIUM SERUM 3.6 MEQ/L (3.5-5.1)
== END ==
PROVIDERS: ATTEND Physician Assistant
DX: D64.9 Anemia, unspecified (principal); N18.6 End stage renal disease

== ENCOUNTER → 2018-10-19 | Outpatient (REF) | payer MEDICARE, MEDICAID ==
[~2018-10-19] MED LIST changes: -OMEP1CAP73 PO; +OMEP20CA4 PO; +OMEP40CA2 PO; -OMEP40CA97 PO; -SENN-53 PO; +SENN1TAB40 PO; +TRAZ-163 PO; -TRAZ-257 PO; +TRAZ10TA PO; -TRAZ1TAB12 PO; -XARE10TA PO
[2018-10-19 08:28] LABS: ALBUMIN 2.7 GM/DL (3.2-5.2); CALCIUM LEVEL 7.5 MG/DL (8.8-10.2); CREATININE FOR GFR 2.27 MG/DL (0.70-1.30); GLOMERULAR FILTRATION RATE 31.3 (>49); PHOSPHORUS LEVEL 3.7 MG/DL (2.5-4.9); POTASSIUM SERUM 3.9 MEQ/L (3.5-5.1)
[2018-10-19 10:14] LABS: CREATININE, SERUM 2.3 MG/DL (0.6-1.3)
[2018-10-19 10:33] LABS: CREATININE CLEARANCE, URINE 23.2 ML/MIN (85-125); CREATININE, URINE 34.1 MG/DL
== END ==
PROVIDERS: ATTEND Internal Medicine
DX: N18.9 Chronic kidney disease, unspecified (principal)

== ENCOUNTER → 2018-10-24 | Outpatient (REF) | payer MEDICARE, MEDICAID ==
[2018-10-24 11:28] LABS: BASO % 0.4 % (0.0-1.0); EOS # 0.4 10^3/uL (0.0-0.5); EOS % 6.2 % (0.0-3.0); HEMATOCRIT 32.7 % (42.0-52.0); HEMOGLOBIN 10.3 g/dl (13.5-17.5); LYMPH # 1.5 10^3/uL (1.5-5.0); LYMPH % 26.2 % (24.0-44.0); MEAN CORPUSCULAR HEMOGLOBIN 30.2 pg (27.0-33.0); MEAN CORPUSCULAR HGB CONC 31.5 g/dl (32.0-36.5); MEAN CORPUSCULAR VOLUME 95.9 fl (80.0-96.0); MONO # 0.3 10^3/uL (0.0-0.8); MONO % 6.1 % (0.0-5.0); NEUTROPHILS # 3.4 10^3/uL (1.5-8.5); NEUTROPHILS % 60.7 % (36.0-66.0); PLATELET COUNT, AUTOMATED 113 10^3/uL (150-450); RED BLOOD COUNT 3.41 10^6/uL (4.30-6.10); WHITE BLOOD COUNT 5.6 10^3/uL (4.0-10.0)
[2018-10-24 11:43] LABS: CALCIUM LEVEL 7.4 MG/DL (8.8-10.2); CREATININE FOR GFR 2.33 MG/DL (0.70-1.30); GLOMERULAR FILTRATION RATE 30.4 (>49); PHOSPHORUS LEVEL 4.1 MG/DL (2.5-4.9); POTASSIUM SERUM 3.4 MEQ/L (3.5-5.1)
== END ==
PROVIDERS: ATTEND Physician Assistant
DX: N18.9 Chronic kidney disease, unspecified (principal); Z49.31 Encounter for adequacy testing for hemodialysis

== ENCOUNTER → 2018-10-31 | Outpatient (REF) | payer MEDICARE, MEDICAID ==
[~2018-10-31] MED LIST changes: +XARE10TA PO
[2018-10-31 09:14] LABS: BASO % 0.4 % (0.0-1.0); EOS # 0.3 10^3/uL (0.0-0.5); EOS % 6.2 % (0.0-3.0); HEMATOCRIT 30.9 % (42.0-52.0); LYMPH # 1.6 10^3/uL (1.5-5.0); LYMPH % 29.5 % (24.0-44.0); MEAN CORPUSCULAR HEMOGLOBIN 31.1 pg (27.0-33.0); MEAN CORPUSCULAR HGB CONC 32.4 g/dl (32.0-36.5); MONO # 0.4 10^3/uL (0.0-0.8); MONO % 6.3 % (0.0-5.0); NEUTROPHILS # 3.2 10^3/uL (1.5-8.5); NEUTROPHILS % 57.2 % (36.0-66.0); RED BLOOD COUNT 3.22 10^6/uL (4.30-6.10); WHITE BLOOD COUNT 5.5 10^3/uL (4.0-10.0)
[2018-10-31 09:15] LABS: PLATELET COUNT, AUTOMATED 81 10^3/uL (150-450)
[2018-10-31 09:28] LABS: ALBUMIN 2.8 GM/DL (3.2-5.2); CALCIUM LEVEL 7.8 MG/DL (8.8-10.2); CREATININE FOR GFR 2.25 MG/DL (0.70-1.30); GLOMERULAR FILTRATION RATE 31.6 (>49); PHOSPHORUS LEVEL 4.4 MG/DL (2.5-4.9); POTASSIUM SERUM 3.8 MEQ/L (3.5-5.1)
== END ==
PROVIDERS: ATTEND Internal Medicine
DX: N18.9 Chronic kidney disease, unspecified (principal)

== ENCOUNTER → 2018-11-01 | Outpatient (REF) | payer MEDICARE, MEDICAID ==
[~2018-11-01] MED LIST changes: +OMEP1CAP73 PO; -OMEP20CA4 PO; -OMEP40CA2 PO; +OMEP40CA97 PO; +SENN-53 PO; -SENN1TAB40 PO; -TRAZ-163 PO; +TRAZ-257 PO; -TRAZ10TA PO; +TRAZ1TAB12 PO
[2018-11-01 10:27] LABS: BASO % 0.4 % (0.0-1.0); EOS # 0.3 10^3/uL (0.0-0.5); EOS % 6.1 % (0.0-3.0); HEMATOCRIT 31.4 % (42.0-52.0); HEMOGLOBIN 10.2 g/dl (13.5-17.5); LYMPH # 1.2 10^3/uL (1.5-5.0); LYMPH % 24.5 % (24.0-44.0); MEAN CORPUSCULAR HEMOGLOBIN 31.6 pg (27.0-33.0); MEAN CORPUSCULAR HGB CONC 32.5 g/dl (32.0-36.5); MEAN CORPUSCULAR VOLUME 97.2 fl (80.0-96.0); MONO # 0.3 10^3/uL (0.0-0.8); MONO % 5.7 % (0.0-5.0); NEUTROPHILS # 3.1 10^3/uL (1.5-8.5); NEUTROPHILS % 62.9 % (36.0-66.0); RED BLOOD COUNT 3.23 10^6/uL (4.30-6.10); WHITE BLOOD COUNT 4.9 10^3/uL (4.0-10.0)
[2018-11-01 10:31] LABS: PLATELET COUNT, AUTOMATED 78 10^3/uL (150-450)
[2018-11-01 10:47] LABS: ALBUMIN 2.8 GM/DL (3.2-5.2); CALCIUM LEVEL 7.8 MG/DL (8.8-10.2); CREATININE FOR GFR 2.2 MG/DL (0.70-1.30); GLOMERULAR FILTRATION RATE 32.4 (>49); PHOSPHORUS LEVEL 3.9 MG/DL (2.5-4.9); POTASSIUM SERUM 3.5 MEQ/L (3.5-5.1)
== END ==
PROVIDERS: ATTEND Internal Medicine
DX: N18.9 Chronic kidney disease, unspecified (principal)

== ENCOUNTER → 2018-11-08 | Outpatient (REF) | payer MEDICARE, MEDICAID ==
[~2018-11-08] MED LIST changes: -OMEP1CAP73 PO; +OMEP20CA4 PO; +OMEP40CA2 PO; -OMEP40CA97 PO; -SENN-53 PO; +SENN1TAB40 PO; +TRAZ-163 PO; -TRAZ-257 PO; +TRAZ10TA PO; -TRAZ1TAB12 PO
[2018-11-08 14:09] LABS: APPEARANCE, URINE CLEAR (CLEAR); BACTERIA, URINE AUTO NEGATIVE (NEGATIVE); BILIRUBIN, URINE AUTO NEGATIVE (NEGATIVE); BLOOD, URINE BLOOD NEGATIVE (NEGATIVE); COLOR, URINE YELLOW (YELLOW); GLUCOSE, URINE (UA) AUTO NEGATIVE (NEGATIVE); KETONE, URINE AUTO NEGATIVE (NEGATIVE); LEUKOCYTE ESTERASE, URINE AUTO NEGATIVE (NEGATIVE); NITRITE, URINE AUTO NEGATIVE (NEGATIVE); PROTEIN, URINE AUTO NEGATIVE (NEGATIVE); RBC, URINE AUTO 0 /HPF (0-3); SPECIFIC GRAVITY URINE AUTO 1.011 (1.002-1.035); SQUAMOUS EPITHELIAL CELL UR AU 1 /HPF (0-6); UROBILINOGEN, URINE AUTO 0.2 mg/dL (0.0-2.0); WBC, URINE AUTO 0 /HPF (0-3)
== END ==
PROVIDERS: ATTEND Internal Medicine
DX: D64.9 Anemia, unspecified (principal); N18.6 End stage renal disease; R31.9 Hematuria, unspecified

== ENCOUNTER → 2018-11-12 | Outpatient (CLI) | payer MEDICARE, MEDICAID ==
[~2018-11-12] MED LIST changes: +LIDOCAINE 2% MDV 20 ML VIAL As Ordered ONE
[2018-11-12 10:25] VITALS: BP 125/67
--- NOTE | 2018-11-13 10:11 | ROOPDOC ---
[facility] Report Of Operation Report of Operation DATE OF PROCEDURE: 11/12/2018 PREPROCEDURE DIAGNOSES: End-stage renal disease, resolution of renal failure. POSTPROCEDURE DIAGNOSES: End-stage renal disease, resolution of renal failure. PROCEDURE: Right internal jugular vein tunneled central venous catheter removal. SURGEON: Dr. Jakub Perera M.D. COST ACCOUNTING ANALYST: None INDICATION: Patient is a 63-year-old male who acute renal failure requiring renal replacement therapy and hemodialysis who underwent placement of a right tunneled central venous catheter for hemodialysis access. Patient underwent attempted removal of the right tunneled central venous catheter at dialysis without success. Patient will undergo removal of the right internal jugular vein tunneled central venous catheter. The procedure was explained and described to the patient in detail including drawing of pictures describing the procedure and pertinent anatomy associated with the procedure. Risks, benefits and alter [place] treatment options were discussed with the patient. Benefits included but were not limited to removal of the catheter with reduction in complications from central venous catheters. Alternative treatment options included but were not limited to no intervention. Risks included but were not limited to infection, bleeding, pneumothorax, hemothorax, possible need for open surgical intervention, adverse or allergic reaction to the local anesthetic, adverse or allergic reaction to the material used for surgical prepping and draping, nerve injury, cerebrovascular accident, myocardial infarction, pulmonary embolus, deep venous thrombosis, poor satisfaction, poor outcome, poor results, loss of limb and loss of life. Risks of not performing the procedure included but were not limited to infection, bleeding, central venous stenosis and/or thrombosis, loss of life and poor outcome. Patient's questions were answered. Patient voices understanding of these risks, benefits and alternative treatment options. Patient voices acceptance of these risks, benefits and alternative treatment options and consents to proceed with right internal jugular vein tunneled central venous catheter removal. There were no promises or guarantees made to the patient regarding the procedure or outcome. ANESTHESIA: Local with 12 mL of 2% lidocaine ESTIMATED BLOOD LOSS: 5 mL IV FLUIDS: None DRAINS: None CONTRAST: None COMPLICATIONS: None IMPLANTS: None SPECIMENS: None PROCEDURE: Patient was prepped and draped in a standard surgical fashion. A time out was completed by myself and all the team members in the room involved at the initiation of the procedure, confirming the correct patient , procedure and laterality. Manual traction was applied to the catheter which did not release the subcutaneous cuff spontaneously. The skin and subcutaneous tissue overlying the catheter and tunnelled subcutaneous cuff were then anesthetized with 2% lidocaine. The cuff was then sharply dissected free via the entry site in the right chest. The catheter was then removed and manual compression applied at the exit site in the right chest and at the right internal jugular vein entry site for hemostasis. Once hemostasis was achieved, dressings were then applied. Patient tolerated the procedure well and was in stable condition at the end of the removal of the tunneled central venous catheter. All instrument, sponge and needle counts were correct at the end of the case. There were no complications. Dr. Perera was present for and directed the entire case. Patient was discharged in stable condition. The procedure and results were discussed with the patient at the end of the case with all of their questions being answered. The procedure and the results were discussed with the patient's Caregivers at the end of the case with all of their questions being answered. Ra Perera MD Nov 13, 2018 10:11
== END ==
LOC: M IRPRO 09:55
PROVIDERS: ATTEND Surgery Vascular Surgery
DX: Z45.2 Encounter for adjustment and management of vascular access device (principal); N18.6 End stage renal disease

== ENCOUNTER → 2018-11-13 | Outpatient (REF) | payer MEDICARE, MEDICAID ==
[~2018-11-13] MED LIST changes: -LIDOCAINE 2% MDV 20 ML VIAL As Ordered ONE
[2018-11-13 10:57] LABS: BASO % 0.4 % (0.0-1.0); EOS # 0.3 10^3/uL (0.0-0.5); EOS % 4.7 % (0.0-3.0); HEMATOCRIT 32.6 % (42.0-52.0); HEMOGLOBIN 10.4 g/dl (13.5-17.5); LYMPH # 1.1 10^3/uL (1.5-5.0); LYMPH % 19.3 % (24.0-44.0); MEAN CORPUSCULAR HEMOGLOBIN 30.9 pg (27.0-33.0); MEAN CORPUSCULAR HGB CONC 31.9 g/dl (32.0-36.5); MEAN CORPUSCULAR VOLUME 96.7 fl (80.0-96.0); MONO # 0.3 10^3/uL (0.0-0.8); NEUTROPHILS # 3.8 10^3/uL (1.5-8.5); NEUTROPHILS % 69.2 % (36.0-66.0); RED BLOOD COUNT 3.37 10^6/uL (4.30-6.10); WHITE BLOOD COUNT 5.5 10^3/uL (4.0-10.0)
[2018-11-13 11:00] LABS: PLATELET COUNT, AUTOMATED 79 10^3/uL (150-450)
[2018-11-13 11:17] LABS: ALBUMIN 2.9 GM/DL (3.2-5.2); CALCIUM LEVEL 7.9 MG/DL (8.8-10.2); CREATININE FOR GFR 2.13 MG/DL (0.70-1.30); GLOMERULAR FILTRATION RATE 33.7 (>49); PERCENT SATURATION 29.3 % (19.7-50.0); PHOSPHORUS LEVEL 3.4 MG/DL (2.5-4.9); POTASSIUM SERUM 3.6 MEQ/L (3.5-5.1)
[2018-11-13 11:30] LABS: PTH INTACT 93.1 PG/ML (18.5-88.0)
== END ==
PROVIDERS: ATTEND Internal Medicine
DX: N18.9 Chronic kidney disease, unspecified (principal); L97.822 Non-pressure chronic ulcer of other part of left lower leg with fat layer exposed; L97.529 Non-pressure chronic ulcer of other part of left foot with unspecified severity

== ENCOUNTER → 2018-11-22 | Outpatient (REF) | payer MEDICARE, MEDICAID ==
[~2018-11-22] MED LIST changes: +OMEP1CAP73 PO; -OMEP20CA4 PO; -OMEP40CA2 PO; +OMEP40CA97 PO; +SENN-53 PO; -SENN1TAB40 PO; -TRAZ-163 PO; +TRAZ-257 PO; -TRAZ10TA PO; +TRAZ1TAB12 PO
[2018-11-22 13:49] LABS: CALCIUM LEVEL 7.8 MG/DL (8.8-10.2); CREATININE FOR GFR 2.05 MG/DL (0.70-1.30); GLOMERULAR FILTRATION RATE 35.2 (>49); POTASSIUM SERUM 3.9 MEQ/L (3.5-5.1)
== END ==
PROVIDERS: ATTEND Internal Medicine
DX: N18.9 Chronic kidney disease, unspecified (principal)

== ENCOUNTER → 2018-11-27 | Outpatient (REF) | payer MEDICARE, MEDICAID ==
[~2018-11-27] MED LIST changes: -OMEP1CAP73 PO; +OMEP20CA4 PO; +TRAZ-163 PO; -TRAZ-257 PO; +TRAZ10TA PO; -TRAZ1TAB12 PO
[2018-11-27 09:16] LABS: HEMATOCRIT 34.1 % (42.0-52.0); HEMOGLOBIN 11.3 g/dl (13.5-17.5); MEAN CORPUSCULAR HEMOGLOBIN 31.3 pg (27.0-33.0); MEAN CORPUSCULAR HGB CONC 33.1 g/dl (32.0-36.5); MEAN CORPUSCULAR VOLUME 94.5 fl (80.0-96.0); RED BLOOD COUNT 3.61 10^6/uL (4.30-6.10); WHITE BLOOD COUNT 6.2 10^3/uL (4.0-10.0)
[2018-11-27 09:24] LABS: PLATELET COUNT, AUTOMATED 85 10^3/uL (150-450)
[2018-11-27 09:41] LABS: CALCIUM LEVEL 8.1 MG/DL (8.8-10.2); CREATININE FOR GFR 2.02 MG/DL (0.70-1.30); GLOMERULAR FILTRATION RATE 35.8 (>49); POTASSIUM SERUM 3.7 MEQ/L (3.5-5.1)
== END ==
PROVIDERS: ATTEND Internal Medicine
DX: N18.9 Chronic kidney disease, unspecified (principal); I87.312 Chronic venous hypertension (idiopathic) with ulcer of left lower extremity

== ENCOUNTER → 2018-12-11 | Outpatient (REF) | payer MEDICARE, MEDICAID ==
[2018-12-11 10:25] LABS: HEMOGLOBIN 11.2 g/dl (13.5-17.5); MEAN CORPUSCULAR HEMOGLOBIN 30.9 pg (27.0-33.0); MEAN CORPUSCULAR VOLUME 96.7 fl (80.0-96.0); PLATELET COUNT, AUTOMATED 101 10^3/uL (150-450); RED BLOOD COUNT 3.62 10^6/uL (4.30-6.10); WHITE BLOOD COUNT 6.2 10^3/uL (4.0-10.0)
[2018-12-11 10:54] LABS: CALCIUM LEVEL 8.4 MG/DL (8.8-10.2); GLOMERULAR FILTRATION RATE 36.2 (>49); POTASSIUM SERUM 3.8 MEQ/L (3.5-5.1)
== END ==
PROVIDERS: ATTEND Internal Medicine
DX: N18.9 Chronic kidney disease, unspecified (principal)
CPT/HCPCS: 36415; 80048; 85027; G0463

== ENCOUNTER → 2019-01-01 | Outpatient (REF) | payer MEDICARE, MEDICAID ==
[2019-01-01 09:51] LABS: HEMATOCRIT 37.3 % (42.0-52.0); HEMOGLOBIN 11.8 g/dl (13.5-17.5); MEAN CORPUSCULAR HEMOGLOBIN 31.2 pg (27.0-33.0); MEAN CORPUSCULAR HGB CONC 31.6 g/dl (32.0-36.5); MEAN CORPUSCULAR VOLUME 98.7 fl (80.0-96.0); PLATELET COUNT, AUTOMATED 102 10^3/uL (150-450); RED BLOOD COUNT 3.78 10^6/uL (4.30-6.10); WHITE BLOOD COUNT 6.6 10^3/uL (4.0-10.0)
[2019-01-01 10:11] LABS: CALCIUM LEVEL 8.1 MG/DL (8.8-10.2); CREATININE FOR GFR 2.05 MG/DL (0.70-1.30); GLOMERULAR FILTRATION RATE 35.2 (>49); POTASSIUM SERUM 3.6 MEQ/L (3.5-5.1)
== END ==
PROVIDERS: ATTEND Internal Medicine
DX: N18.9 Chronic kidney disease, unspecified (principal)
CPT/HCPCS: 36415; 80048; 85027; G0463

== ENCOUNTER → 2019-01-07 | Outpatient (REF) | payer MEDICARE, MEDICAID ==
[2019-01-07 12:11] LABS: BASO % 0.4 % (0.0-1.0); EOS # 0.3 10^3/uL (0.0-0.5); EOS % 4.8 % (0.0-3.0); HEMATOCRIT 36.7 % (42.0-52.0); HEMOGLOBIN 11.7 g/dl (13.5-17.5); LYMPH # 1.3 10^3/uL (1.5-5.0); LYMPH % 19.2 % (24.0-44.0); MEAN CORPUSCULAR HEMOGLOBIN 31.4 pg (27.0-33.0); MEAN CORPUSCULAR HGB CONC 31.9 g/dl (32.0-36.5); MEAN CORPUSCULAR VOLUME 98.4 fl (80.0-96.0); MONO # 0.4 10^3/uL (0.0-0.8); MONO % 6.5 % (0.0-5.0); NEUTROPHILS # 4.7 10^3/uL (1.5-8.5); NEUTROPHILS % 68.8 % (36.0-66.0); RED BLOOD COUNT 3.73 10^6/uL (4.30-6.10); WHITE BLOOD COUNT 6.8 10^3/uL (4.0-10.0)
[2019-01-07 12:12] LABS: PLATELET COUNT, AUTOMATED 96 10^3/uL (150-450)
[2019-01-07 12:40] LABS: CALCIUM LEVEL 7.9 MG/DL (8.8-10.2); CREATININE FOR GFR 1.96 MG/DL (0.70-1.30); GLOMERULAR FILTRATION RATE 37.1 (>49); POTASSIUM SERUM 3.5 MEQ/L (3.5-5.1)
[2019-01-07 12:41] LABS: ALBUMIN 3.1 GM/DL (3.2-5.2); PHOSPHORUS LEVEL 3.1 MG/DL (2.5-4.9)
[2019-01-07 12:48] LABS: PTH INTACT 101.4 PG/ML (18.5-88.0); TOTAL 25(OH) VITAMIN D 36.4 NG/ML (30.0-100.0)
== END ==
PROVIDERS: ATTEND Physician Assistant
DX: N18.9 Chronic kidney disease, unspecified (principal); Z79.899 Other long term (current) drug therapy

== ENCOUNTER → 2019-01-15 | Outpatient (REF) ==
[2019-01-15 16:22] LABS: APPEARANCE, URINE CLOUDY (CLEAR); BACTERIA, URINE AUTO 1+ (NEGATIVE); BILIRUBIN, URINE AUTO NEGATIVE (NEGATIVE); BLOOD, URINE BLOOD 2+ (NEGATIVE); COLOR, URINE YELLOW (YELLOW); GLUCOSE, URINE (UA) AUTO NEGATIVE (NEGATIVE); KETONE, URINE AUTO NEGATIVE (NEGATIVE); LEUKOCYTE ESTERASE, URINE AUTO 3+ (NEGATIVE); NITRITE, URINE AUTO NEGATIVE (NEGATIVE); PROTEIN, URINE AUTO NEGATIVE (NEGATIVE); RBC, URINE AUTO 8 /HPF (0-3); SPECIFIC GRAVITY URINE AUTO 1.009 (1.002-1.035); SQUAMOUS EPITHELIAL CELL UR AU 0 /HPF (0-6); UROBILINOGEN, URINE AUTO 0.2 mg/dL (0.0-2.0); WBC, URINE AUTO TNTC /HPF (0-3)
== END ==
PROVIDERS: ATTEND Internal Medicine
DX: N20.0 Calculus of kidney (principal)

== ENCOUNTER → 2019-01-23 | Outpatient (REF) | payer MEDICARE, MEDICAID ==
[2019-01-23 19:40] LABS: HEMATOCRIT 37.5 % (42.0-52.0); HEMOGLOBIN 11.7 g/dl (13.5-17.5); MEAN CORPUSCULAR HEMOGLOBIN 30.9 pg (27.0-33.0); MEAN CORPUSCULAR HGB CONC 31.2 g/dl (32.0-36.5); MEAN CORPUSCULAR VOLUME 98.9 fl (80.0-96.0); PLATELET COUNT, AUTOMATED 110 10^3/uL (150-450); RED BLOOD COUNT 3.79 10^6/uL (4.30-6.10); WHITE BLOOD COUNT 7.6 10^3/uL (4.0-10.0)
[2019-01-23 20:06] LABS: CALCIUM LEVEL 7.6 MG/DL (8.8-10.2); CREATININE FOR GFR 2.08 MG/DL (0.70-1.30); GLOMERULAR FILTRATION RATE 34.6 (>49)
== END ==
PROVIDERS: ATTEND Internal Medicine
DX: N18.9 Chronic kidney disease, unspecified (principal)

== ENCOUNTER → 2019-01-31 | Outpatient (CLI) | payer MEDICARE, MEDICAID ==
[~2019-01-31] MED LIST changes: +OMEP-172 PO; -OMEP20CA4 PO
--- NOTE | 2019-01-31 13:56 | REP ---
RENAL ULTRASOUND: Real-time sonographic evaluation of the kidneys performed. Kidneys are hyperechoic in echotexture suggesting medical renal disease. Right kidney measures 12.3 x 5.1 x 5.1 cm and left kidney 13.2 x 7.1 x 5.3 cm. There is no hydronephrosis bilaterally. There are again multiple bilateral renal cysts present. There is a mid right renal cyst medially 2.0 cm maximally. There are two adjacent cysts in the right lower pole 2.0 and 2.7 cm maximally. Right lower pole is not well see due to patient body habitus. Medial left renal cyst mid aspect is 2.0 cm in maximum diameter. A dominant cyst laterally of the left kidney is exophytic and measures 4.8 x 3.3 x 5.0 cm. A cyst in the left lower pole measures 1.7 cm maximally. Urinary bladder is mild to moderately distended with no gross mass or calculus. IMPRESSION: Hyperechoic echotexture of the kidneys suggest medical renal disease. Bilateral renal cysts as above. Electronically Signed by Ilan Hoover MD 02/04/2019 10:16 A
== END ==
LOC: M RAD 09:42
PROVIDERS: ATTEND Physician Assistant
DX: N28.1 Cyst of kidney, acquired (principal)

== ENCOUNTER → 2019-03-07 | Outpatient (REF) | payer MEDICARE, MEDICAID ==
[~2019-03-07] MED LIST changes: -OMEP-172 PO; +OMEP1CAP73 PO; -TRAZ-163 PO; +TRAZ-257 PO; -TRAZ10TA PO; +TRAZ1TAB12 PO
[2019-03-07 10:03] LABS: HEMATOCRIT 35.4 % (42.0-52.0); HEMOGLOBIN 11.4 g/dl (13.5-17.5); MEAN CORPUSCULAR HEMOGLOBIN 31.3 pg (27.0-33.0); MEAN CORPUSCULAR HGB CONC 32.2 g/dl (32.0-36.5); MEAN CORPUSCULAR VOLUME 97.3 fl (80.0-96.0); PLATELET COUNT, AUTOMATED 105 10^3/uL (150-450); RED BLOOD COUNT 3.64 10^6/uL (4.30-6.10); WHITE BLOOD COUNT 6.2 10^3/uL (4.0-10.0)
[2019-03-07 10:19] LABS: CALCIUM LEVEL 7.1 MG/DL (8.8-10.2); CREATININE FOR GFR 2.02 MG/DL (0.70-1.30); GLOMERULAR FILTRATION RATE 35.8 (>49); POTASSIUM SERUM 3.8 MEQ/L (3.5-5.1)
== END ==
PROVIDERS: ATTEND Internal Medicine
DX: N18.9 Chronic kidney disease, unspecified (principal)

== ENCOUNTER → 2019-04-03 | Outpatient (REF) | payer MEDICARE, MEDICAID ==
[~2019-04-03] MED LIST changes: -FLUO20CA19 PO; +FLUO20CA22 PO
[2019-04-03 11:13] LABS: HEMATOCRIT 37.8 % (42.0-52.0); HEMOGLOBIN 12.1 g/dl (13.5-17.5); MEAN CORPUSCULAR HEMOGLOBIN 31.2 pg (27.0-33.0); MEAN CORPUSCULAR VOLUME 97.4 fl (80.0-96.0); PLATELET COUNT, AUTOMATED 124 10^3/uL (150-450); RED BLOOD COUNT 3.88 10^6/uL (4.30-6.10); WHITE BLOOD COUNT 7.3 10^3/uL (4.0-10.0)
[2019-04-03 11:37] LABS: CALCIUM LEVEL 7.7 MG/DL (8.8-10.2); CREATININE FOR GFR 1.97 MG/DL (0.70-1.30); GLOMERULAR FILTRATION RATE 36.9 (>49); POTASSIUM SERUM 3.4 MEQ/L (3.5-5.1)
== END ==
PROVIDERS: ATTEND Physician Assistant
DX: N18.9 Chronic kidney disease, unspecified (principal)

== ENCOUNTER → 2019-04-05 | Outpatient (REF) | payer MEDICARE, MEDICAID ==
[2019-04-05 10:29] LABS: CALCIUM LEVEL 7.4 MG/DL (8.8-10.2); CREATININE FOR GFR 2.04 MG/DL (0.70-1.30); GLOMERULAR FILTRATION RATE 35.4 (>49); POTASSIUM SERUM 4.1 MEQ/L (3.5-5.1)
== END ==
PROVIDERS: ATTEND Internal Medicine
DX: E87.6 Hypokalemia (principal)
CPT/HCPCS: 36415; 80048; G0463

== ENCOUNTER → 2019-04-12 | Outpatient (REF) | payer MEDICARE, MEDICAID ==
[2019-04-12 09:37] LABS: BASO % 0.5 % (0.0-1.0); EOS # 0.4 10^3/uL (0.0-0.5); EOS % 5.7 % (0.0-3.0); HEMATOCRIT 33.7 % (42.0-52.0); HEMOGLOBIN 10.8 g/dl (13.5-17.5); LYMPH # 1.5 10^3/uL (1.5-5.0); LYMPH % 23.5 % (24.0-44.0); MEAN CORPUSCULAR HEMOGLOBIN 30.9 pg (27.0-33.0); MEAN CORPUSCULAR VOLUME 96.6 fl (80.0-96.0); MONO # 0.5 10^3/uL (0.0-0.8); MONO % 7.1 % (0.0-5.0); PLATELET COUNT, AUTOMATED 102 10^3/uL (150-450); RED BLOOD COUNT 3.49 10^6/uL (4.30-6.10); WHITE BLOOD COUNT 6.3 10^3/uL (4.0-10.0)
[2019-04-12 10:56] LABS: ALBUMIN 2.9 GM/DL (3.2-5.2); CALCIUM LEVEL 7.7 MG/DL (8.8-10.2); CREATININE FOR GFR 2.02 MG/DL (0.70-1.30); GLOMERULAR FILTRATION RATE 35.8 (>49); MAGNESIUM LEVEL 1.9 MG/DL (1.8-2.4); PHOSPHORUS LEVEL 3.9 MG/DL (2.5-4.9); POTASSIUM SERUM 4.1 MEQ/L (3.5-5.1); URIC ACID 10.1 MG/DL (3.5-7.2)
[2019-04-12 11:08] LABS: AMORPHOUS SEDIMENT SMALL (NEGATIVE); APPEARANCE, URINE CLOUDY (CLEAR); BACTERIA, URINE AUTO 3+ (NEGATIVE); BILIRUBIN, URINE AUTO NEGATIVE (NEGATIVE); BLOOD, URINE BLOOD 1+ (NEGATIVE); COLOR, URINE YELLOW (YELLOW); GLUCOSE, URINE (UA) AUTO NEGATIVE (NEGATIVE); KETONE, URINE AUTO NEGATIVE (NEGATIVE); LEUKOCYTE ESTERASE, URINE AUTO 3+ (NEGATIVE); NITRITE, URINE AUTO NEGATIVE (NEGATIVE); PROTEIN, URINE AUTO NEGATIVE (NEGATIVE); RBC, URINE AUTO 31 /HPF (0-3); SPECIFIC GRAVITY URINE AUTO 1.011 (1.002-1.035); SQUAMOUS EPITHELIAL CELL UR AU 1 /HPF (0-6); UROBILINOGEN, URINE AUTO 0.2 mg/dL (0.0-2.0); WBC, URINE AUTO TNTC /HPF (0-3)
[2019-04-12 11:12] LABS: PTH INTACT 120.7 PG/ML (18.5-88.0)
== END ==
PROVIDERS: ATTEND Physician Assistant
DX: N18.6 End stage renal disease (principal)

== ENCOUNTER → 2019-04-19 | Outpatient (REF) | payer MEDICARE, MEDICAID | PROVIDERS: ATTEND Internal Medicine | DX: N18.9 Chronic kidney disease, unspecified (principal) ==

== ENCOUNTER → 2019-06-03 | Outpatient (REF) | payer MEDICARE, MEDICAID ==
[2019-06-03 12:14] LABS: HEMATOCRIT 36.6 % (42.0-52.0); HEMOGLOBIN 11.7 g/dl (13.5-17.5); MEAN CORPUSCULAR HEMOGLOBIN 30.5 pg (27.0-33.0); MEAN CORPUSCULAR VOLUME 95.3 fl (80.0-96.0); PLATELET COUNT, AUTOMATED 102 10^3/uL (150-450); RED BLOOD COUNT 3.84 10^6/uL (4.30-6.10); WHITE BLOOD COUNT 6.7 10^3/uL (4.0-10.0)
[2019-06-03 12:36] LABS: CALCIUM LEVEL 7.9 MG/DL (8.8-10.2); GLOMERULAR FILTRATION RATE 36.2 (>49); POTASSIUM SERUM 3.5 MEQ/L (3.5-5.1)
== END ==
PROVIDERS: ATTEND Internal Medicine
DX: N18.9 Chronic kidney disease, unspecified (principal)

== ENCOUNTER → 2019-06-10 | Outpatient (REF) | payer MEDICARE, MEDICAID ==
[2019-06-10 09:51] LABS: BASO % 0.3 % (0.0-1.0); EOS # 0.3 10^3/uL (0.0-0.5); EOS % 5.2 % (0.0-3.0); HEMATOCRIT 36.1 % (42.0-52.0); HEMOGLOBIN 11.7 g/dl (13.5-17.5); LYMPH # 1.4 10^3/uL (1.5-5.0); LYMPH % 24.2 % (24.0-44.0); MEAN CORPUSCULAR HEMOGLOBIN 30.6 pg (27.0-33.0); MEAN CORPUSCULAR HGB CONC 32.4 g/dl (32.0-36.5); MEAN CORPUSCULAR VOLUME 94.5 fl (80.0-96.0); MONO # 0.2 10^3/uL (0.0-0.8); MONO % 3.2 % (0.0-5.0); NEUTROPHILS % 66.8 % (36.0-66.0); PLATELET COUNT, AUTOMATED 104 10^3/uL (150-450); RED BLOOD COUNT 3.82 10^6/uL (4.30-6.10); WHITE BLOOD COUNT 5.9 10^3/uL (4.0-10.0)
[2019-06-10 10:15] LABS: ALBUMIN 2.9 GM/DL (3.2-5.2); CALCIUM LEVEL 7.5 MG/DL (8.8-10.2); CREATININE FOR GFR 2.03 MG/DL (0.70-1.30); GLOMERULAR FILTRATION RATE 35.6 (>49); MAGNESIUM LEVEL 1.9 MG/DL (1.8-2.4); PHOSPHORUS LEVEL 3.7 MG/DL (2.5-4.9); POTASSIUM SERUM 3.5 MEQ/L (3.5-5.1); URIC ACID 10.1 MG/DL (3.5-7.2)
[2019-06-10 10:28] LABS: PTH INTACT 99.2 PG/ML (18.5-88.0)
[2019-06-10 12:18] LABS: APPEARANCE, URINE CLOUDY (CLEAR); BACTERIA, URINE AUTO 3+ (NEGATIVE); BILIRUBIN, URINE AUTO NEGATIVE (NEGATIVE); BLOOD, URINE BLOOD NEGATIVE (NEGATIVE); COLOR, URINE YELLOW (YELLOW); GLUCOSE, URINE (UA) AUTO NEGATIVE (NEGATIVE); KETONE, URINE AUTO NEGATIVE (NEGATIVE); LEUKOCYTE ESTERASE, URINE AUTO 3+ (NEGATIVE); NITRITE, URINE AUTO NEGATIVE (NEGATIVE); PROTEIN, URINE AUTO NEGATIVE (NEGATIVE); RBC, URINE AUTO 33 /HPF (0-3); SPECIFIC GRAVITY URINE AUTO 1.011 (1.002-1.035); SQUAMOUS EPITHELIAL CELL UR AU 0 /HPF (0-6); UROBILINOGEN, URINE AUTO 0.2 mg/dL (0.0-2.0); WBC, URINE AUTO 143 /HPF (0-3)
== END ==
PROVIDERS: ATTEND Internal Medicine
DX: N18.3 Chronic kidney disease, stage 3 (moderate) (principal); D63.1 Anemia in chronic kidney disease; E83.42 Hypomagnesemia; M10.9 Gout, unspecified

== ENCOUNTER → 2019-07-03 | Outpatient (REF) | payer MEDICARE, MEDICAID ==
[2019-07-03 10:41] LABS: HEMATOCRIT 36.9 % (42.0-52.0); HEMOGLOBIN 11.8 g/dl (13.5-17.5); MEAN CORPUSCULAR HEMOGLOBIN 30.3 pg (27.0-33.0); MEAN CORPUSCULAR VOLUME 94.6 fl (80.0-96.0); WHITE BLOOD COUNT 6.5 10^3/uL (4.0-10.0)
[2019-07-03 10:43] LABS: PLATELET COUNT, AUTOMATED 95 10^3/uL (150-450)
[2019-07-03 11:04] LABS: CALCIUM LEVEL 7.8 MG/DL (8.8-10.2); CREATININE FOR GFR 2.14 MG/DL (0.70-1.30); GLOMERULAR FILTRATION RATE 33.4 (>49); POTASSIUM SERUM 3.2 MEQ/L (3.5-5.1)
== END ==
PROVIDERS: ATTEND Internal Medicine
DX: N18.9 Chronic kidney disease, unspecified (principal)

== ENCOUNTER → 2019-07-05 | Outpatient (REF) | PROVIDERS: ATTEND Internal Medicine | DX: E87.6 Hypokalemia (principal) ==

== ENCOUNTER → 2019-07-09 | Outpatient (REF) ==
[~2019-07-09] MED LIST changes: -AMIO200T PO; +AMIO200T3 PO; -MAG400TA PO; +MAGN400T35 PO; +PANT40TA29 PO; -PANT40TA3 PO; -TAB-TAB PO; +TAB-TAB2 PO
== END ==
PROVIDERS: ATTEND Internal Medicine
DX: Z03.818 Encounter for observation for suspected exposure to other biological agents ruled out (principal)

== ENCOUNTER → 2019-09-03 | Outpatient (REF) | payer MEDICARE, MEDICAID ==
[~2019-09-03] MED LIST changes: +AMIO200T PO; -AMIO200T3 PO; +MAG400TA PO; -MAGN400T35 PO; -PANT40TA29 PO; +PANT40TA3 PO; +TAB-TAB PO; -TAB-TAB2 PO
[2019-09-03 13:52] LABS: HEMATOCRIT 36.4 % (42.0-52.0); HEMOGLOBIN 11.5 g/dl (13.5-17.5); MEAN CORPUSCULAR HEMOGLOBIN 30.3 pg (27.0-33.0); MEAN CORPUSCULAR HGB CONC 31.6 g/dl (32.0-36.5); MEAN CORPUSCULAR VOLUME 95.8 fl (80.0-96.0); PLATELET COUNT, AUTOMATED 114 10^3/uL (150-450); WHITE BLOOD COUNT 7.2 10^3/uL (4.0-10.0)
[2019-09-03 14:15] LABS: CALCIUM LEVEL 8.2 MG/DL (8.8-10.2); CREATININE FOR GFR 1.84 MG/DL (0.70-1.30); GLOMERULAR FILTRATION RATE 39.8 (>49); POTASSIUM SERUM 3.6 MEQ/L (3.5-5.1)
== END ==
PROVIDERS: ATTEND Internal Medicine
DX: N18.9 Chronic kidney disease, unspecified (principal)

== ENCOUNTER → 2019-09-11 | Outpatient (REF) | payer MEDICARE, MEDICAID ==
[~2019-09-11] MED LIST changes: -AMIO200T PO; +AMIO200T3 PO; +PANT40TA29 PO; -PANT40TA3 PO; -TAB-TAB PO; +TAB-TAB2 PO
[2019-09-11 10:02] LABS: HEMATOCRIT 35.2 % (42.0-52.0); HEMOGLOBIN 11.1 g/dl (13.5-17.5); MEAN CORPUSCULAR HEMOGLOBIN 29.8 pg (27.0-33.0); MEAN CORPUSCULAR HGB CONC 31.5 g/dl (32.0-36.5); MEAN CORPUSCULAR VOLUME 94.4 fl (80.0-96.0); PLATELET COUNT, AUTOMATED 105 10^3/uL (150-450); RED BLOOD COUNT 3.73 10^6/uL (4.30-6.10); WHITE BLOOD COUNT 6.9 10^3/uL (4.0-10.0)
[2019-09-11 10:30] LABS: ALBUMIN 2.8 GM/DL (3.2-5.2); CALCIUM LEVEL 8.1 MG/DL (8.8-10.2); CREATININE FOR GFR 1.84 MG/DL (0.70-1.30); GLOMERULAR FILTRATION RATE 39.8 (>49); PHOSPHORUS LEVEL 3.6 MG/DL (2.5-4.9); POTASSIUM SERUM 3.7 MEQ/L (3.5-5.1); URIC ACID 7.1 MG/DL (3.5-7.2)
[2019-09-11 10:53] LABS: PTH INTACT 56.9 PG/ML (18.5-88.0)
== END ==
PROVIDERS: ATTEND Physician Assistant
DX: N18.9 Chronic kidney disease, unspecified (principal)

== ENCOUNTER → 2019-09-16 | Outpatient (REF) ==
[2019-11-05 20:10] LABS: APPEARANCE, URINE CLEAR (CLEAR); BACTERIA, URINE AUTO 1+ (NEGATIVE); BILIRUBIN, URINE AUTO NEGATIVE (NEGATIVE); BLOOD, URINE BLOOD NEGATIVE (NEGATIVE); COLOR, URINE YELLOW (YELLOW); GLUCOSE, URINE (UA) AUTO NEGATIVE (NEGATIVE); KETONE, URINE AUTO NEGATIVE (NEGATIVE); LEUKOCYTE ESTERASE, URINE AUTO 3+ (NEGATIVE); NITRITE, URINE AUTO NEGATIVE (NEGATIVE); PROTEIN, URINE AUTO NEGATIVE (NEGATIVE); RBC, URINE AUTO 4 /HPF (0-3); SPECIFIC GRAVITY URINE AUTO 1.006 (1.002-1.035); SQUAMOUS EPITHELIAL CELL UR AU 0 /HPF (0-6); UROBILINOGEN, URINE AUTO 0.2 mg/dL (0.0-2.0); WBC, URINE AUTO 29 /HPF (0-3)
== END ==
PROVIDERS: ATTEND Physician Assistant
DX: N18.9 Chronic kidney disease, unspecified (principal)

== ENCOUNTER → 2019-11-04 | Outpatient (REF) | payer MEDICARE, MEDICAID ==
[2019-11-04 11:05] LABS: HEMATOCRIT 36.6 % (42.0-52.0); HEMOGLOBIN 11.4 g/dl (13.5-17.5); MEAN CORPUSCULAR HEMOGLOBIN 29.8 pg (27.0-33.0); MEAN CORPUSCULAR HGB CONC 31.1 g/dl (32.0-36.5); MEAN CORPUSCULAR VOLUME 95.6 fl (80.0-96.0); RED BLOOD COUNT 3.83 10^6/uL (4.30-6.10); WHITE BLOOD COUNT 5.9 10^3/uL (4.0-10.0)
[2019-11-04 11:13] LABS: PLATELET COUNT, AUTOMATED 94 10^3/uL (150-450)
[2019-11-04 11:32] LABS: CALCIUM LEVEL 8.1 MG/DL (8.8-10.2); CREATININE FOR GFR 1.84 MG/DL (0.70-1.30); GLOMERULAR FILTRATION RATE 39.8 (>49); POTASSIUM SERUM 3.8 MEQ/L (3.5-5.1)
== END ==
PROVIDERS: ATTEND Internal Medicine
DX: N18.9 Chronic kidney disease, unspecified (principal)

== ENCOUNTER → 2019-12-31 | Outpatient (REF) | payer MEDICARE, MEDICAID ==
[2019-12-31 10:45] LABS: HEMATOCRIT 36.3 % (42.0-52.0); HEMOGLOBIN 11.2 g/dl (13.5-17.5); MEAN CORPUSCULAR HEMOGLOBIN 28.8 pg (27.0-33.0); MEAN CORPUSCULAR HGB CONC 30.9 g/dl (32.0-36.5); MEAN CORPUSCULAR VOLUME 93.3 fl (80.0-96.0); PLATELET COUNT, AUTOMATED 123 10^3/uL (150-450); RED BLOOD COUNT 3.89 10^6/uL (4.30-6.10); WHITE BLOOD COUNT 7.7 10^3/uL (4.0-10.0)
[2019-12-31 11:00] LABS: CALCIUM LEVEL 8.5 MG/DL (8.8-10.2); CREATININE FOR GFR 1.83 MG/DL (0.70-1.30); POTASSIUM SERUM 3.7 MEQ/L (3.5-5.1)
== END ==
PROVIDERS: ATTEND Physician Assistant
DX: N18.9 Chronic kidney disease, unspecified (principal)

== ENCOUNTER → 2020-01-02 | Outpatient (REF) | PROVIDERS: ATTEND Internal Medicine | DX: Z20.828 Contact with and (suspected) exposure to other viral communicable diseases (principal) ==

== ENCOUNTER → 2020-01-09 | Outpatient (REF) | payer MEDICARE, MEDICAID ==
[~2020-01-09] MED LIST changes: -MAG400TA PO; +MAGN400T35 PO
== END ==
LOC: EDSTATUS 02-17 10:25
PROVIDERS: ATTEND Internal Medicine
DX: Z20.828 Contact with and (suspected) exposure to other viral communicable diseases (principal)

== ENCOUNTER → 2020-01-15 | Outpatient (REF) | payer MEDICARE, MEDICAID | PROVIDERS: ATTEND Internal Medicine | DX: Z20.828 Contact with and (suspected) exposure to other viral communicable diseases (principal) ==

== ENCOUNTER → 2020-02-02 | Outpatient (REF) | payer MEDICARE, MEDICAID ==
[~2020-02-02] MED LIST changes: +MAG400TA PO; -MAGN400T35 PO
== END ==
PROVIDERS: ATTEND Internal Medicine
DX: Z20.828 Contact with and (suspected) exposure to other viral communicable diseases (principal)

== ENCOUNTER → 2020-02-03 | Outpatient (REF) | payer MEDICARE, MEDICAID ==
--- NOTE | 2020-02-03 15:54 | REPPI ---
INDICATION: ROOM 142 ABDOMEN PAIN. COMPARISON: None. TECHNIQUE: Four views of the abdomen are obtained portably. FINDINGS: There are air-filled loops of small bowel across the central abdomen which may reflect mild ileus. There is some air in the proximal and descending colon. No evidence of obstruction. There are faintly opaque gallstones in the right upper quadrant consistent with cholelithiasis. There are degenerative changes in the lumbar spine and in the hips. IMPRESSION: Mild ileus pattern in the bowel gas. Cholelithiasis. <Electronically signed by Josue Santana > 02/03/20 [id number]
== END ==
PROVIDERS: ATTEND Internal Medicine
DX: K80.20 Calculus of gallbladder without cholecystitis without obstruction (principal); M16.9 Osteoarthritis of hip, unspecified; M51.36 Other intervertebral disc degeneration, lumbar region

== ENCOUNTER → 2020-02-04 | Outpatient (REF) | payer MEDICARE, MEDICAID ==
[2020-02-04 11:36] LABS: APPEARANCE, URINE TURBID (CLEAR); BACTERIA, URINE AUTO NEGATIVE (NEGATIVE); BILIRUBIN, URINE AUTO NEGATIVE (NEGATIVE); BLOOD, URINE BLOOD 2+ (NEGATIVE); COLOR, URINE YELLOW (YELLOW); GLUCOSE, URINE (UA) AUTO NEGATIVE (NEGATIVE); KETONE, URINE AUTO NEGATIVE (NEGATIVE); LEUKOCYTE ESTERASE, URINE AUTO 3+ (NEGATIVE); NITRITE, URINE AUTO NEGATIVE (NEGATIVE); PROTEIN, URINE AUTO 1+ mg/dL (NEGATIVE); RBC, URINE AUTO 24 /HPF (0-3); SPECIFIC GRAVITY URINE AUTO 1.011 (1.002-1.035); SQUAMOUS EPITHELIAL CELL UR AU 0 /HPF (0-6); UROBILINOGEN, URINE AUTO 0.2 mg/dL (0.0-2.0); WBC, URINE AUTO TNTC /HPF (0-3)
[2020-02-04 11:49] LABS: ALBUMIN 3.1 GM/DL (3.2-5.2); CALCIUM LEVEL 8.9 MG/DL (8.8-10.2); CREATININE FOR GFR 1.97 MG/DL (0.70-1.30); GLOMERULAR FILTRATION RATE 36.7 (>49); MAGNESIUM LEVEL 2.3 MG/DL (1.8-2.4); PHOSPHORUS LEVEL 3.5 MG/DL (2.5-4.9); URIC ACID 7.3 MG/DL (3.5-7.2)
[2020-02-04 11:58] LABS: PTH INTACT 83.8 PG/ML (18.5-88.0)
== END ==
PROVIDERS: ATTEND Internal Medicine
DX: N18.9 Chronic kidney disease, unspecified (principal)

== ENCOUNTER → 2020-02-06 | Outpatient (REF) | payer MEDICARE, MEDICAID ==
--- NOTE | 2020-02-06 16:26 | REPPI ---
INDICATION: ABDOMINAL PAIN ILEUIS. COMPARISON: Comparison study February 03, 2020.. TECHNIQUE: Four views. FINDINGS: Four views of the abdomen again demonstrate opaque gallstones and right upper quadrant. There is no dilated small bowel or large bowel visible today. The bowel gas pattern appears improved. There are 1 or 2 loops of air-filled nondilated small bowel. No evidence of mass or organomegaly. Degenerative changes are seen in the lumbar spine. IMPRESSION: Cholelithiasis. Bowel gas pattern is improved. <Electronically signed by Josue Santana > 02/06/20 [id number]
== END ==
PROVIDERS: ATTEND Internal Medicine
DX: K80.20 Calculus of gallbladder without cholecystitis without obstruction (principal); M51.36 Other intervertebral disc degeneration, lumbar region; R10.9 Unspecified abdominal pain

== ENCOUNTER → 2020-02-06 | Outpatient (REF) | payer MEDICARE, MEDICAID | PROVIDERS: ATTEND Internal Medicine | DX: Z20.828 Contact with and (suspected) exposure to other viral communicable diseases (principal) ==

== ENCOUNTER → 2020-02-07 | Outpatient (REF) | payer MEDICARE, MEDICAID | PROVIDERS: ATTEND Physician Assistant | DX: N39.0 Urinary tract infection, site not specified (principal) ==

== ENCOUNTER → 2020-02-12 | Outpatient (REF) | payer MEDICARE, MEDICAID | PROVIDERS: ATTEND Internal Medicine | DX: Z20.828 Contact with and (suspected) exposure to other viral communicable diseases (principal) ==

== ENCOUNTER → 2020-02-15 | Outpatient (REF) | payer MEDICARE, MEDICAID | LOC: M LAB 13:50 | PROVIDERS: ATTEND Internal Medicine | DX: Z20.828 Contact with and (suspected) exposure to other viral communicable diseases (principal) ==

== ENCOUNTER → 2020-03-05 | Outpatient (REF) ==
[~2020-03-05] MED LIST changes: -MAG400TA PO; +MAGN400T35 PO
[2020-03-05 15:00] LABS: HEMATOCRIT 36.7 % (42.0-52.0); HEMOGLOBIN 11.3 g/dl (13.5-17.5); MEAN CORPUSCULAR HEMOGLOBIN 28.4 pg (27.0-33.0); MEAN CORPUSCULAR HGB CONC 30.8 g/dl (32.0-36.5); MEAN CORPUSCULAR VOLUME 92.2 fl (80.0-96.0); PLATELET COUNT, AUTOMATED 136 10^3/uL (150-450); RED BLOOD COUNT 3.98 10^6/uL (4.30-6.10); WHITE BLOOD COUNT 8.8 10^3/uL (4.0-10.0)
[2020-03-05 15:11] LABS: CALCIUM LEVEL 9.1 MG/DL (8.8-10.2); CREATININE FOR GFR 1.61 MG/DL (0.70-1.30); GLOMERULAR FILTRATION RATE 46.4 (>49); POTASSIUM SERUM 3.9 MEQ/L (3.5-5.1)
== END ==
PROVIDERS: ATTEND Physician Assistant
DX: N18.9 Chronic kidney disease, unspecified (principal)

== ENCOUNTER → 2020-03-11 | Outpatient (REF) | PROVIDERS: ATTEND Internal Medicine | DX: Z20.828 Contact with and (suspected) exposure to other viral communicable diseases (principal) ==

== ENCOUNTER → 2020-05-05 | Outpatient (REF) ==
[2020-05-05 10:18] LABS: HEMATOCRIT 34.4 % (42.0-52.0); HEMOGLOBIN 10.8 g/dl (13.5-17.5); MEAN CORPUSCULAR HEMOGLOBIN 29.2 pg (27.0-33.0); MEAN CORPUSCULAR HGB CONC 31.4 g/dl (32.0-36.5); PLATELET COUNT, AUTOMATED 118 10^3/uL (150-450); WHITE BLOOD COUNT 6.8 10^3/uL (4.0-10.0)
[2020-05-05 10:38] LABS: ALBUMIN 2.9 GM/DL (3.2-5.2); CALCIUM LEVEL 8.7 MG/DL (8.8-10.2); CREATININE FOR GFR 1.7 MG/DL (0.70-1.30); GLOMERULAR FILTRATION RATE 43.6 (>49); MAGNESIUM LEVEL 2.4 MG/DL (1.8-2.4); PHOSPHORUS LEVEL 3.9 MG/DL (2.5-4.9); URIC ACID 6.7 MG/DL (3.5-7.2)
[2020-05-05 11:09] LABS: PTH INTACT 61.5 PG/ML (18.5-88.0)
[2020-05-05 15:37] LABS: APPEARANCE, URINE CLEAR (CLEAR); BACTERIA, URINE AUTO NEGATIVE (NEGATIVE); BILIRUBIN, URINE AUTO NEGATIVE (NEGATIVE); BLOOD, URINE BLOOD NEGATIVE (NEGATIVE); COLOR, URINE STRAW (YELLOW); GLUCOSE, URINE (UA) AUTO NEGATIVE (NEGATIVE); KETONE, URINE AUTO NEGATIVE (NEGATIVE); LEUKOCYTE ESTERASE, URINE AUTO NEGATIVE (NEGATIVE); NITRITE, URINE AUTO NEGATIVE (NEGATIVE); PROTEIN, URINE AUTO NEGATIVE (NEGATIVE); RBC, URINE AUTO 0 /HPF (0-3); SPECIFIC GRAVITY URINE AUTO 1.009 (1.002-1.035); SQUAMOUS EPITHELIAL CELL UR AU 0 /HPF (0-6); UROBILINOGEN, URINE AUTO 0.2 mg/dL (0.0-2.0); WBC, URINE AUTO 0 /HPF (0-3)
== END ==
PROVIDERS: ATTEND Internal Medicine
DX: N18.9 Chronic kidney disease, unspecified (principal)

== ENCOUNTER → 2020-05-29 | Outpatient (REF) | payer MEDICARE, MEDICAID ==
[2020-05-29 20:29] LABS: RSV AMPLIFICATION NEGATIVE (NEGATIVE)
== END ==
PROVIDERS: ATTEND Internal Medicine
DX: Z11.52 Encounter for screening for COVID-19 (principal)

== ENCOUNTER → 2020-06-30 | Outpatient (REF) | payer MEDICARE, MEDICAID ==
[2020-06-30 10:08] LABS: HEMATOCRIT 33.6 % (42.0-52.0); HEMOGLOBIN 10.4 g/dl (13.5-17.5); MEAN CORPUSCULAR HEMOGLOBIN 28.3 pg (27.0-33.0); MEAN CORPUSCULAR VOLUME 91.3 fl (80.0-96.0); PLATELET COUNT, AUTOMATED 116 10^3/uL (150-450); RED BLOOD COUNT 3.68 10^6/uL (4.30-6.10); WHITE BLOOD COUNT 7.1 10^3/uL (4.0-10.0)
[2020-06-30 10:39] LABS: CALCIUM LEVEL 8.4 MG/DL (8.8-10.2); CREATININE FOR GFR 1.68 MG/DL (0.70-1.30); POTASSIUM SERUM 3.9 MEQ/L (3.5-5.1)
== END ==
PROVIDERS: ATTEND Internal Medicine
DX: N18.9 Chronic kidney disease, unspecified (principal)

== ENCOUNTER → 2020-08-04 | Outpatient (REF) | payer MEDICARE, MEDICAID | PROVIDERS: ATTEND Physician Assistant | DX: N18.9 Chronic kidney disease, unspecified (principal) ==

== ENCOUNTER → 2020-08-06 | Outpatient (REF) | payer MEDICARE, MEDICAID ==
[~2020-08-06] MED LIST changes: +OMEP40CA4 PO; -OMEP40CA97 PO
[2020-08-06 12:13] LABS: CALCIUM LEVEL 8.6 MG/DL (8.8-10.2); CREATININE FOR GFR 1.86 MG/DL (0.70-1.30); GLOMERULAR FILTRATION RATE 39.1 (>49); POTASSIUM SERUM 3.6 MEQ/L (3.5-5.1)
[2020-08-06 13:08] LABS: HEMATOCRIT 33.8 % (42.0-52.0); HEMOGLOBIN 10.3 g/dl (13.5-17.5); MEAN CORPUSCULAR HEMOGLOBIN 27.3 pg (27.0-33.0); MEAN CORPUSCULAR HGB CONC 30.5 g/dl (32.0-36.5); MEAN CORPUSCULAR VOLUME 89.7 fl (80.0-96.0); PLATELET COUNT, AUTOMATED 116 10^3/uL (150-450); RED BLOOD COUNT 3.77 10^6/uL (4.30-6.10); WHITE BLOOD COUNT 6.3 10^3/uL (4.0-10.0)
== END ==
PROVIDERS: ATTEND Internal Medicine
DX: N18.9 Chronic kidney disease, unspecified (principal)

== ENCOUNTER → 2020-08-07 | Outpatient (REF) | payer MEDICARE, MEDICAID ==
[2020-08-07 10:00] LABS: BASO % 0.3 % (0.0-1.0); EOS # 0.3 10^3/uL (0.0-0.5); EOS % 4.5 % (0.0-3.0); HEMATOCRIT 32.8 % (42.0-52.0); LYMPH # 1.1 10^3/uL (1.5-5.0); MEAN CORPUSCULAR HEMOGLOBIN 27.2 pg (27.0-33.0); MEAN CORPUSCULAR HGB CONC 30.5 g/dl (32.0-36.5); MEAN CORPUSCULAR VOLUME 89.4 fl (80.0-96.0); MONO # 0.3 10^3/uL (0.0-0.8); MONO % 5.7 % (2.0-8.0); NEUTROPHILS # 4.2 10^3/uL (1.5-8.5); NEUTROPHILS % 70.3 % (36.0-66.0); PLATELET COUNT, AUTOMATED 109 10^3/uL (150-450); RED BLOOD COUNT 3.67 10^6/uL (4.30-6.10)
[2020-08-07 10:33] LABS: ALBUMIN 2.9 GM/DL (3.2-5.2); CALCIUM LEVEL 8.1 MG/DL (8.8-10.2); CREATININE FOR GFR 1.81 MG/DL (0.70-1.30); GLOMERULAR FILTRATION RATE 40.4 (>49); MAGNESIUM LEVEL 2.2 MG/DL (1.8-2.4); POTASSIUM SERUM 3.5 MEQ/L (3.5-5.1); URIC ACID 6.3 MG/DL (3.5-7.2)
[2020-08-07 10:42] LABS: PTH INTACT 57.1 PG/ML (18.5-88.0)
[2020-08-07 12:45] LABS: APPEARANCE, URINE HAZY (CLEAR); BACTERIA, URINE AUTO 1+ (NEGATIVE); BILIRUBIN, URINE AUTO NEGATIVE (NEGATIVE); BLOOD, URINE BLOOD 1+ (NEGATIVE); COLOR, URINE YELLOW (YELLOW); GLUCOSE, URINE (UA) AUTO NEGATIVE (NEGATIVE); KETONE, URINE AUTO NEGATIVE (NEGATIVE); LEUKOCYTE ESTERASE, URINE AUTO 3+ (NEGATIVE); NITRITE, URINE AUTO NEGATIVE (NEGATIVE); PROTEIN, URINE AUTO NEGATIVE (NEGATIVE); RBC, URINE AUTO 2 /HPF (0-3); SPECIFIC GRAVITY URINE AUTO 1.011 (1.002-1.035); SQUAMOUS EPITHELIAL CELL UR AU 0 /HPF (0-6); UROBILINOGEN, URINE AUTO 0.2 mg/dL (0.0-2.0); WBC, URINE AUTO 18 /HPF (0-3)
== END ==
PROVIDERS: ATTEND Internal Medicine
DX: N18.9 Chronic kidney disease, unspecified (principal); Z79.899 Other long term (current) drug therapy

== ENCOUNTER → 2020-08-10 | Outpatient (REF) | payer MEDICARE, MEDICAID ==
[2020-08-10 14:23] LABS: APPEARANCE, URINE HAZY (CLEAR); BACTERIA, URINE AUTO NEGATIVE (NEGATIVE); BILIRUBIN, URINE AUTO NEGATIVE (NEGATIVE); BLOOD, URINE BLOOD NEGATIVE (NEGATIVE); COLOR, URINE YELLOW (YELLOW); GLUCOSE, URINE (UA) AUTO NEGATIVE (NEGATIVE); KETONE, URINE AUTO NEGATIVE (NEGATIVE); LEUKOCYTE ESTERASE, URINE AUTO 3+ (NEGATIVE); MUCUS, URINE SMALL (NEGATIVE); NITRITE, URINE AUTO NEGATIVE (NEGATIVE); PROTEIN, URINE AUTO NEGATIVE (NEGATIVE); RBC, URINE AUTO 2 /HPF (0-3); SPECIFIC GRAVITY URINE AUTO 1.013 (1.002-1.035); SQUAMOUS EPITHELIAL CELL UR AU 1 /HPF (0-6); UROBILINOGEN, URINE AUTO 0.2 mg/dL (0.0-2.0); WBC, URINE AUTO 13 /HPF (0-3)
== END ==
PROVIDERS: ATTEND Internal Medicine
DX: R31.29 Other microscopic hematuria (principal)

== ENCOUNTER → 2020-08-11 | Outpatient (REF) | payer MEDICARE, MEDICAID ==
[2020-08-11 10:58] LABS: CALCIUM LEVEL 8.5 MG/DL (8.8-10.2); CREATININE FOR GFR 1.56 MG/DL (0.70-1.30); GLOMERULAR FILTRATION RATE 47.9 (>49); POTASSIUM SERUM 3.7 MEQ/L (3.5-5.1)
== END ==
PROVIDERS: ATTEND Physician Assistant
DX: N18.9 Chronic kidney disease, unspecified (principal)

== ENCOUNTER → 2020-09-02 | Outpatient (REF) | payer MEDICARE, MEDICAID ==
[2020-09-02 10:21] LABS: HEMATOCRIT 31.9 % (42.0-52.0); HEMOGLOBIN 9.7 g/dl (13.5-17.5); MEAN CORPUSCULAR HEMOGLOBIN 26.7 pg (27.0-33.0); MEAN CORPUSCULAR HGB CONC 30.4 g/dl (32.0-36.5); MEAN CORPUSCULAR VOLUME 87.9 fl (80.0-96.0); PLATELET COUNT, AUTOMATED 117 10^3/uL (150-450); RED BLOOD COUNT 3.63 10^6/uL (4.30-6.10); WHITE BLOOD COUNT 6.2 10^3/uL (4.0-10.0)
[2020-09-02 10:44] LABS: CALCIUM LEVEL 8.3 MG/DL (8.8-10.2); CREATININE FOR GFR 1.79 MG/DL (0.70-1.30); GLOMERULAR FILTRATION RATE 40.9 (>49)
== END ==
PROVIDERS: ATTEND Physician Assistant
DX: N18.9 Chronic kidney disease, unspecified (principal)

== ENCOUNTER → 2020-11-04 | Outpatient (REF) | payer MEDICARE, MEDICAID ==
[~2020-11-04] MED LIST changes: -KLOR20TA42 PO; +POTA-141 PO
[2020-11-04 11:49] LABS: HEMATOCRIT 30.8 % (42.0-52.0); HEMOGLOBIN 9.2 g/dl (13.5-17.5); MEAN CORPUSCULAR HEMOGLOBIN 25.6 pg (27.0-33.0); MEAN CORPUSCULAR HGB CONC 29.9 g/dl (32.0-36.5); MEAN CORPUSCULAR VOLUME 85.8 fl (80.0-96.0); PLATELET COUNT, AUTOMATED 125 10^3/uL (150-450); RED BLOOD COUNT 3.59 10^6/uL (4.30-6.10)
[2020-11-04 12:26] LABS: ALBUMIN 2.6 GM/DL (3.2-5.2); CALCIUM LEVEL 8.9 MG/DL (8.8-10.2); CREATININE FOR GFR 1.76 MG/DL (0.70-1.30); GLOMERULAR FILTRATION RATE 41.7 (>49); PHOSPHORUS LEVEL 3.5 MG/DL (2.5-4.9); POTASSIUM SERUM 3.5 MEQ/L (3.5-5.1); URIC ACID 7.5 MG/DL (3.5-7.2)
[2020-11-04 12:29] LABS: PTH INTACT 20.9 PG/ML (18.5-88.0)
== END ==
PROVIDERS: ATTEND Physician Assistant
DX: N18.9 Chronic kidney disease, unspecified (principal)

== ENCOUNTER → 2020-11-05 | Outpatient (REF) | payer MEDICARE, MEDICAID ==
[2020-11-05 11:18] LABS: APPEARANCE, URINE CLEAR (CLEAR); BILIRUBIN, URINE AUTO NEGATIVE (NEGATIVE); BLOOD, URINE BLOOD NEGATIVE (NEGATIVE); COLOR, URINE YELLOW (YELLOW); GLUCOSE, URINE (UA) AUTO NEGATIVE (NEGATIVE); KETONE, URINE AUTO NEGATIVE (NEGATIVE); LEUKOCYTE ESTERASE, URINE AUTO 3+ (NEGATIVE); NITRITE, URINE AUTO NEGATIVE (NEGATIVE); PROTEIN, URINE AUTO NEGATIVE (NEGATIVE); SPECIFIC GRAVITY URINE AUTO 1.011 (1.002-1.035); UROBILINOGEN, URINE AUTO 0.2 mg/dL (0.0-2.0)
[2020-11-05 11:20] LABS: BACTERIA, URINE AUTO 3+ (NEGATIVE); RBC, URINE AUTO 3 /HPF (0-3); SQUAMOUS EPITHELIAL CELL UR AU 0 /HPF (0-6); WBC, URINE AUTO 19 /HPF (0-3)
== END ==
PROVIDERS: ATTEND Physician Assistant
DX: N28.9 Disorder of kidney and ureter, unspecified (principal)

== ENCOUNTER → 2020-12-16 | Outpatient (REF) | payer MEDICARE, MEDICAID, BC ==
[~2020-12-16] MED LIST changes: -IBUP200T45 PO; +IBUP200T46 PO
[2020-12-16 11:36] LABS: HEMATOCRIT 33.4 % (42.0-52.0); HEMOGLOBIN 10.3 g/dl (13.5-17.5); MEAN CORPUSCULAR HGB CONC 30.8 g/dl (32.0-36.5); MEAN CORPUSCULAR VOLUME 90.8 fl (80.0-96.0); PLATELET COUNT, AUTOMATED 113 10^3/uL (150-450); RED BLOOD COUNT 3.68 10^6/uL (4.30-6.10); WHITE BLOOD COUNT 6.5 10^3/uL (4.0-10.0)
[2020-12-16 12:09] LABS: ALBUMIN 2.4 GM/DL (3.2-5.2); CALCIUM LEVEL 8.9 MG/DL (8.8-10.2); CREATININE FOR GFR 1.69 MG/DL (0.70-1.30); GLOMERULAR FILTRATION RATE 43.7 (>49); MAGNESIUM LEVEL 1.9 MG/DL (1.8-2.4); PHOSPHORUS LEVEL 3.1 MG/DL (2.5-4.9); POTASSIUM SERUM 3.3 MEQ/L (3.5-5.1); URIC ACID 7.3 MG/DL (3.5-7.2)
[2020-12-16 12:11] LABS: PTH INTACT 13.1 PG/ML (18.5-88.0)
[2020-12-16 14:36] LABS: APPEARANCE, URINE HAZY (CLEAR); BACTERIA, URINE AUTO 1+ (NEGATIVE); BILIRUBIN, URINE AUTO NEGATIVE (NEGATIVE); BLOOD, URINE BLOOD NEGATIVE (NEGATIVE); COLOR, URINE YELLOW (YELLOW); GLUCOSE, URINE (UA) AUTO NEGATIVE (NEGATIVE); KETONE, URINE AUTO NEGATIVE (NEGATIVE); LEUKOCYTE ESTERASE, URINE AUTO 3+ (NEGATIVE); MUCUS, URINE SMALL (NEGATIVE); NITRITE, URINE AUTO NEGATIVE (NEGATIVE); PROTEIN, URINE AUTO NEGATIVE (NEGATIVE); RBC, URINE AUTO 2 /HPF (0-3); SPECIFIC GRAVITY URINE AUTO 1.011 (1.002-1.035); SQUAMOUS EPITHELIAL CELL UR AU 2 /HPF (0-6); UROBILINOGEN, URINE AUTO 0.2 mg/dL (0.0-2.0); WBC, URINE AUTO 22 /HPF (0-3)
== END ==
PROVIDERS: ATTEND Physician Assistant
DX: N18.9 Chronic kidney disease, unspecified (principal)

== ENCOUNTER → 2020-12-21 | Outpatient (REF) | payer MEDICARE, MEDICAID, BC ==
[2020-12-21 12:21] LABS: CALCIUM LEVEL 9.2 MG/DL (8.8-10.2); CREATININE FOR GFR 1.62 MG/DL (0.70-1.30); GLOMERULAR FILTRATION RATE 45.9 (>49); POTASSIUM SERUM 4.1 MEQ/L (3.5-5.1)
== END ==
PROVIDERS: ATTEND Internal Medicine
DX: E87.6 Hypokalemia (principal)

== ENCOUNTER → 2021-03-09 | Outpatient (REF) | payer MEDICARE, MEDICAID, BC ==
[~2021-03-09] MED LIST changes: +ACET-907 PO; +ALLO100T PO; -AMIO200T3 PO; +AMIO200T49 PO; +BISA10SU20 PR; +CIPR500T39 PO; +DESI13CR2 EXT; +FERR324T21 PO; +FLEEENE12 PR; +JUVEPOW4 PO; +METO1TAB87 PO; +MILKSUS3 PO; +MIRA1POW3 PO; +OMEP-173 PO; -OMEP-218 PO; +POTA1TAB14 PO; +SENN-122 PO; +SILV1CRE60 TOP; +TRAZ-189 PO
[2021-03-09 13:59] LABS: APPEARANCE, URINE CLOUDY (CLEAR); BACTERIA, URINE AUTO 2+ (NEGATIVE); BILIRUBIN, URINE AUTO NEGATIVE (NEGATIVE); BLOOD, URINE BLOOD NEGATIVE (NEGATIVE); COLOR, URINE AMBER (YELLOW); GLUCOSE, URINE (UA) AUTO NEGATIVE (NEGATIVE); KETONE, URINE AUTO NEGATIVE (NEGATIVE); LEUKOCYTE ESTERASE, URINE AUTO 3+ (NEGATIVE); MUCUS, URINE SMALL (NEGATIVE); NITRITE, URINE AUTO POSITIVE (NEGATIVE); PROTEIN, URINE AUTO NEGATIVE (NEGATIVE); RBC, URINE AUTO 5 /HPF (0-3); SQUAMOUS EPITHELIAL CELL UR AU 1 /HPF (0-6); UROBILINOGEN, URINE AUTO 0.2 mg/dL (0.0-2.0); WBC, URINE AUTO TNTC /HPF (0-3)
[2021-03-09 19:06] LABS: BASO % 0.3 % (0.0-1.0); EOS # 0.2 10^3/uL (0.0-0.5); EOS % 3.1 % (0.0-3.0); HEMATOCRIT 34.2 % (42.0-52.0); HEMOGLOBIN 10.6 g/dl (13.5-17.5); LYMPH # 0.8 10^3/uL (1.5-5.0); LYMPH % 10.9 % (24.0-44.0); MEAN CORPUSCULAR HEMOGLOBIN 29.7 pg (27.0-33.0); MEAN CORPUSCULAR VOLUME 95.8 fl (80.0-96.0); MONO # 0.6 10^3/uL (0.0-0.8); MONO % 7.6 % (2.0-8.0); NEUTROPHILS # 5.7 10^3/uL (1.5-8.5); NEUTROPHILS % 77.7 % (36.0-66.0); PLATELET COUNT, AUTOMATED 134 10^3/uL (150-450); RED BLOOD COUNT 3.57 10^6/uL (4.30-6.10); WHITE BLOOD COUNT 7.3 10^3/uL (4.0-10.0)
[2021-03-09 19:46] LABS: ALBUMIN 2.6 GM/DL (3.2-5.2); BILIRUBIN,DIRECT 4.1 MG/DL (0.0-0.2); BILIRUBIN,TOTAL 5.2 MG/DL (0.2-1.0); CALCIUM LEVEL 7.2 MG/DL (8.8-10.2); CREATININE FOR GFR 1.62 MG/DL (0.70-1.30); GLOMERULAR FILTRATION RATE 45.9 (>49); POTASSIUM SERUM 3.6 MEQ/L (3.5-5.1); TOTAL PROTEIN 7.2 GM/DL (6.4-8.2)
== END ==
PROVIDERS: ATTEND Physician Assistant
DX: R10.9 Unspecified abdominal pain (principal)

== ENCOUNTER → 2021-03-10 | Outpatient (CLI) | payer MEDICARE, MEDICAID ==
[~2021-03-10] MED LIST changes: +GASTROGRAFIN SOLUTION 30ML (Q9963) As Ordered ONE; +ISOVUE-370 76% 100ML VIAL As Ordered ONE
== END ==
LOC: M RAD 12:15
PROVIDERS: ATTEND Physician Assistant
DX: K44.9 Diaphragmatic hernia without obstruction or gangrene (principal); K80.20 Calculus of gallbladder without cholecystitis without obstruction; Q61.02 Congenital multiple renal cysts; N20.0 Calculus of kidney; K76.9 Liver disease, unspecified

== ENCOUNTER 2021-03-11 16:26 | Inpatient (IN) | payer MEDICAID, MEDICARE ==
[~2021-03-11] VITALS: Ht 182.9 cm; Wt 162.1 kg
[~2021-03-11 16:26] MED LIST changes: -ACET-907 PO; -ALLO100T PO; -BISA10SU20 PR; -CIPR500T39 PO; -DESI13CR2 EXT; -FERR324T21 PO; -FLEEENE12 PR; -GASTROGRAFIN SOLUTION 30ML (Q9963) As Ordered ONE; -ISOVUE-370 76% 100ML VIAL As Ordered ONE; -JUVEPOW4 PO; -METO1TAB87 PO; -MILKSUS3 PO; -MIRA1POW3 PO; -POTA1TAB14 PO; -SENN-122 PO; -SILV1CRE60 TOP; -TRAZ-189 PO
[2021-03-11 17:26] LABS: BASO % 0.3 % (0.0-1.0); EOS # 0.2 10^3/uL (0.0-0.5); EOS % 2.9 % (0.0-3.0); HEMOGLOBIN 10.1 g/dl (13.5-17.5); LYMPH # 0.9 10^3/uL (1.5-5.0); LYMPH % 12.1 % (24.0-44.0); MEAN CORPUSCULAR HEMOGLOBIN 29.9 pg (27.0-33.0); MEAN CORPUSCULAR HGB CONC 31.6 g/dl (32.0-36.5); MEAN CORPUSCULAR VOLUME 94.7 fl (80.0-96.0); MONO # 0.7 10^3/uL (0.0-0.8); MONO % 9.1 % (2.0-8.0); NEUTROPHILS # 5.4 10^3/uL (1.5-8.5); NEUTROPHILS % 75.3 % (36.0-66.0); PLATELET COUNT, AUTOMATED 137 10^3/uL (150-450); RED BLOOD COUNT 3.38 10^6/uL (4.30-6.10); WHITE BLOOD COUNT 7.1 10^3/uL (4.0-10.0)
[2021-03-11 18:12] LABS: ALBUMIN 2.2 GM/DL (3.2-5.2); BILIRUBIN,DIRECT 5.7 MG/DL (0.0-0.2); BILIRUBIN,TOTAL 6.9 MG/DL (0.2-1.0); CALCIUM LEVEL 7.2 MG/DL (8.8-10.2); CREATININE FOR GFR 2.11 MG/DL (0.70-1.30); GLOMERULAR FILTRATION RATE 33.8 (>49); POTASSIUM SERUM 4.1 MEQ/L (3.5-5.1); TOTAL PROTEIN 6.7 GM/DL (6.4-8.2)
[2021-03-11] MEDS ORDERED: NS 1,000 ML IV SCH (18:30)
[2021-03-11] MEDS ORDERED: PREG100CA PO (21:43)
[2021-03-11] MEDS ORDERED: SENN-122 PO (21:43)
[2021-03-11] MEDS ORDERED: BISA10SU20 PR (21:43)
[2021-03-11] MEDS ORDERED: MIRA1POW3 PO ×2 (21:43)
[2021-03-11] MEDS ORDERED: TRAZ-189 PO (21:43)
[2021-03-11] MEDS ORDERED: ACET-907 PO (21:43)
[2021-03-11] MEDS ORDERED: FERR324T21 PO (21:43)
[2021-03-11] MEDS ORDERED: FLOM0.4C39 PO (21:43)
[2021-03-11] MEDS ORDERED: FLEEENE12 PR (21:43)
[2021-03-11] MEDS ORDERED: JUVEPOW4 PO (21:43)
[2021-03-11] MEDS ORDERED: XARE10TA PO (21:43)
[2021-03-11] MEDS ORDERED: CIPR500T39 PO (21:43)
[2021-03-11] MEDS ORDERED: TORS20TA2 PO (21:43)
[2021-03-11] MEDS ORDERED: MILKSUS3 PO (21:43)
[2021-03-11] MEDS ORDERED: BACITAB PO (21:43)
[2021-03-11] MEDS ORDERED: ALLO100T PO (21:43)
[2021-03-11] MEDS ORDERED: METO1TAB87 PO (21:43)
[2021-03-11] MEDS ORDERED: POTA1TAB14 PO (21:43)
[2021-03-11] MEDS ORDERED: DESI13CR2 EXT (21:43)
[2021-03-11] MEDS ORDERED: SILV1CRE60 TOP (21:43)
[2021-03-11] MEDS ORDERED: HOME MED LIST COMPLETE! XX SCH (21:45)
[2021-03-11] MEDS ORDERED: PIPERACILLIN/TAZOBACTAM SOD 3.375 GM in D5W MINI-BAG PLUS 50 ML IV SCH (23:00)
[2021-03-12] VITALS (8 sets, daily range): BP systolic 15–152; BP diastolic 61–88
[2021-03-12] MEDS: PIPERACILLIN/TAZOBACTAM SOD 3.375 GM in D5W MINI-BAG PLUS 50 ML IV SCH ×4 (00:08→18:07)
[2021-03-12] MEDS: LR 1,000 ML IV SCH ×4 (01:07→22:22)
[2021-03-12 08:43] LABS: ALBUMIN 2.3 GM/DL (3.2-5.2); BILIRUBIN,TOTAL 8.4 MG/DL (0.2-1.0); CALCIUM LEVEL 7.6 MG/DL (8.8-10.2); CREATININE FOR GFR 1.91 MG/DL (0.70-1.30); POTASSIUM SERUM 3.1 MEQ/L (3.5-5.1); TOTAL PROTEIN 7.6 GM/DL (6.4-8.2)
[2021-03-12] MEDS: HYDROMORPHONE HCL 0.5 MG/ 0.5 ML SYRINGE (J1170 PER 1) IV PRN ×3 (08:50→19:15)
[2021-03-12] MEDS ORDERED: LIDOCAINE 2% 100MG/5ML SDV (FOR ANES.) As Ordered ONE (13:35)
[2021-03-12] MEDS ORDERED: SUCCINYLCHOLINE 100 MG/5 ML SYRINGE (J0330) As Ordered ONE (13:35)
[2021-03-12] MEDS ORDERED: fentaNYL 100 MCG/2 ML INJECTION As Ordered ONE (13:35)
[2021-03-12] MEDS ORDERED: ROCURONIUM BROMIDE 50 MG/5 ML VIAL As Ordered ONE (13:35)
[2021-03-12] MEDS ORDERED: MIDAZOLAM INJ 2MG/2ML VIAL (J2250 PER 1MG) As Ordered ONE (13:35)
[2021-03-12] MEDS ORDERED: propofoL 200 MG/20 ML VIAL As Ordered ONE (13:35)
[2021-03-12] MEDS ORDERED: VASOPRESSIN INJ 20 UNITS/ML VIAL ONE (15:12)
[2021-03-12] MEDS ORDERED: SUGAMMADEX SODIUM 500 MG/5 ML VIAL (BRIDION) As Ordered ONE (15:34)
[2021-03-12] MEDS ORDERED: ONDANSETRON 4MG/2ML VIAL As Ordered ONE (15:34)
[2021-03-12] MEDS ORDERED: POTASSIUM CHLORIDE 10MEQ SR TABLET PO ONE (15:50)
[2021-03-12] MEDS ORDERED: METOPROLOL 5 MG/5 ML VIAL As Ordered ONE (16:19)
[2021-03-12] MEDS ORDERED: LR 1,000 ML IV SCH (16:20)
[2021-03-12] MEDS ORDERED: oxyCODONE 5MG TAB PO PRN (16:20)
[2021-03-12] MEDS ORDERED: ONDANSETRON 4MG/2ML VIAL IV PRN (16:20)
[2021-03-12] MEDS ORDERED: fentaNYL 100 MCG/2 ML INJECTION IV PRN (16:20)
[2021-03-12] MEDS ORDERED: NS 500 ML IV SCH (16:45)
[2021-03-12] MEDS ORDERED: METOPROLOL 5 MG/5 ML VIAL IV PRN (16:45)
[2021-03-12] MEDS ORDERED: BISACODYL 10 MG SUPP PR PRN (20:30)
[2021-03-12] MEDS ORDERED: FLEET ENEMA PR PRN (20:30)
[2021-03-12] MEDS: FLUoxetine 20 MG CAP PO SCH (21:13)
[2021-03-12] MEDS: POTASSIUM CHLORIDE 10MEQ SR TABLET PO SCH (21:14)
[2021-03-12] MEDS: traZODone 100 MG TAB PO SCH (21:14)
[2021-03-12] MEDS: PREGABALIN 100 MG CAP (LYRICA) PO SCH (21:14)
[2021-03-12] MEDS: LACTOBACILLUS ACIDOPHILUS CAP (BACID) PO SCH (21:14)
[2021-03-13] MEDS: PIPERACILLIN/TAZOBACTAM SOD 3.375 GM in D5W MINI-BAG PLUS 50 ML IV SCH ×4 (00:43→17:36)
[2021-03-13] MEDS: HYDROMORPHONE HCL 0.5 MG/ 0.5 ML SYRINGE (J1170 PER 1) IV PRN ×4 (03:46→22:01)
[2021-03-13 06:00] VITALS: BP 124/83
[2021-03-13] MEDS: LR 1,000 ML IV SCH ×2 (06:30→13:38)
[2021-03-13 07:20] LABS: BASO % 0.3 % (0.0-1.0); EOS # 0.1 10^3/uL (0.0-0.5); EOS % 0.9 % (0.0-3.0); HEMATOCRIT 32.2 % (42.0-52.0); LYMPH # 0.4 10^3/uL (1.5-5.0); LYMPH % 3.6 % (24.0-44.0); MEAN CORPUSCULAR HEMOGLOBIN 29.7 pg (27.0-33.0); MEAN CORPUSCULAR HGB CONC 31.1 g/dl (32.0-36.5); MEAN CORPUSCULAR VOLUME 95.5 fl (80.0-96.0); MONO # 0.6 10^3/uL (0.0-0.8); MONO % 5.4 % (2.0-8.0); NEUTROPHILS # 9.8 10^3/uL (1.5-8.5); NEUTROPHILS % 89.1 % (36.0-66.0); PLATELET COUNT, AUTOMATED 113 10^3/uL (150-450); RED BLOOD COUNT 3.37 10^6/uL (4.30-6.10)
[2021-03-13 07:48] LABS: BILIRUBIN,TOTAL 8.4 MG/DL (0.2-1.0); CALCIUM LEVEL 7.2 MG/DL (8.8-10.2); CREATININE FOR GFR 2.16 MG/DL (0.70-1.30); GLOMERULAR FILTRATION RATE 32.9 (>49); MAGNESIUM LEVEL 2.1 MG/DL (1.8-2.4); PHOSPHORUS LEVEL 3.3 MG/DL (2.5-4.9); POTASSIUM SERUM 4.7 MEQ/L (3.5-5.1); TOTAL PROTEIN 6.7 GM/DL (6.4-8.2)
[2021-03-13] MEDS: (RENVELA) SEVELAMER **CARBONate** 800 MG TAB PO SCH ×2 (08:00→18:06)
[2021-03-13] MEDS: allopurinoL 100 MG TAB PO SCH (08:31)
[2021-03-13] MEDS: PREGABALIN 100 MG CAP (LYRICA) PO SCH ×2 (08:31→20:46)
[2021-03-13] MEDS: FERROUS GLUCONATE 324 MG TAB PO SCH (08:31)
[2021-03-13] MEDS: LACTOBACILLUS ACIDOPHILUS CAP (BACID) PO SCH ×2 (08:31→20:46)
[2021-03-13] MEDS: TAMSULOSIN 0.4 MG CAP PO SCH (08:31)
[2021-03-13] MEDS ORDERED: TORSEMIDE 20 MG TAB PO SCH (09:00)
[2021-03-13 10:00] VITALS: BP 113/74
[2021-03-13] MEDS: HEPARIN SOD (PORCINE) 5000UNITS/ML 1ML VIAL/SYRINGE SQ SCH ×2 (13:42→20:45)
[2021-03-13 14:00] VITALS: BP 114/73
[2021-03-13 17:56] VITALS: BP 113/76
[2021-03-13] MEDS: METOPROLOL TART 25 MG TABLET PO SCH (18:07)
[2021-03-13] MEDS: traZODone 100 MG TAB PO SCH (20:46)
[2021-03-13] MEDS: POTASSIUM CHLORIDE 10MEQ SR TABLET PO SCH (20:46)
[2021-03-13] MEDS: FLUoxetine 20 MG CAP PO SCH (20:46)
[2021-03-13 21:57] VITALS: BP 100/63
[2021-03-14] MEDS: LR 1,000 ML IV SCH (00:29)
[2021-03-14] MEDS: PIPERACILLIN/TAZOBACTAM SOD 3.375 GM in D5W MINI-BAG PLUS 50 ML IV SCH ×4 (00:29→18:10)
[2021-03-14 02:00] VITALS: BP 97/62
[2021-03-14] MEDS: HYDROMORPHONE HCL 0.5 MG/ 0.5 ML SYRINGE (J1170 PER 1) IV PRN ×4 (02:03→21:29)
[2021-03-14] MEDS: HEPARIN SOD (PORCINE) 5000UNITS/ML 1ML VIAL/SYRINGE SQ SCH ×3 (05:59→21:28)
[2021-03-14 06:00] VITALS: BP 100/58
[2021-03-14] MEDS: METOPROLOL TART 25 MG TABLET PO SCH (09:00)
[2021-03-14] MEDS ORDERED: FUROSEMIDE 40MG/4ML VIAL (J1940) IV SCH (09:00)
[2021-03-14 09:24] LABS: BASO % 0.3 % (0.0-1.0); EOS # 0.3 10^3/uL (0.0-0.5); HEMOGLOBIN 8.7 g/dl (13.5-17.5); LYMPH # 0.4 10^3/uL (1.5-5.0); LYMPH % 4.2 % (24.0-44.0); MEAN CORPUSCULAR HEMOGLOBIN 29.6 pg (27.0-33.0); MEAN CORPUSCULAR HGB CONC 31.1 g/dl (32.0-36.5); MEAN CORPUSCULAR VOLUME 95.2 fl (80.0-96.0); MONO # 0.4 10^3/uL (0.0-0.8); MONO % 3.6 % (2.0-8.0); NEUTROPHILS # 8.8 10^3/uL (1.5-8.5); NEUTROPHILS % 88.3 % (36.0-66.0); PLATELET COUNT, AUTOMATED 125 10^3/uL (150-450); RED BLOOD COUNT 2.94 10^6/uL (4.30-6.10); WHITE BLOOD COUNT 9.9 10^3/uL (4.0-10.0)
[2021-03-14 09:53] LABS: ALBUMIN 1.8 GM/DL (3.2-5.2); CALCIUM LEVEL 6.6 MG/DL (8.8-10.2); CREATININE FOR GFR 2.54 MG/DL (0.70-1.30); GLOMERULAR FILTRATION RATE 27.3 (>49); MAGNESIUM LEVEL 1.9 MG/DL (1.8-2.4); PHOSPHORUS LEVEL 2.7 MG/DL (2.5-4.9); POTASSIUM SERUM 3.8 MEQ/L (3.5-5.1); TOTAL PROTEIN 6.2 GM/DL (6.4-8.2)
[2021-03-14 10:00] VITALS: BP 108/74
[2021-03-14] MEDS: PREGABALIN 100 MG CAP (LYRICA) PO SCH ×2 (10:24→21:29)
[2021-03-14] MEDS: LACTOBACILLUS ACIDOPHILUS CAP (BACID) PO SCH ×2 (10:24→21:29)
[2021-03-14] MEDS: FERROUS GLUCONATE 324 MG TAB PO SCH (10:24)
[2021-03-14] MEDS: TAMSULOSIN 0.4 MG CAP PO SCH (10:24)
[2021-03-14] MEDS: allopurinoL 100 MG TAB PO SCH (10:25)
[2021-03-14 12:30] LABS: INR 1.34
[2021-03-14 12:31] LABS: PARTIAL THROMBOPLASTIN TIME 40.5 SECONDS (25.9-37.0)
[2021-03-14 14:00] VITALS: BP 101/58
[2021-03-14 18:00] VITALS: BP 110/77
[2021-03-14] MEDS: traZODone 100 MG TAB PO SCH (21:29)
[2021-03-14] MEDS: FLUoxetine 20 MG CAP PO SCH (21:29)
[2021-03-14] MEDS: POTASSIUM CHLORIDE 10MEQ SR TABLET PO SCH (21:29)
[2021-03-14 22:00] VITALS: BP 113/77
[2021-03-15] MEDS: PIPERACILLIN/TAZOBACTAM SOD 3.375 GM in D5W MINI-BAG PLUS 50 ML IV SCH ×4 (00:55→17:49)
[2021-03-15] MEDS: HYDROMORPHONE HCL 0.5 MG/ 0.5 ML SYRINGE (J1170 PER 1) IV PRN ×5 (01:05→21:12)
[2021-03-15 06:00] VITALS: BP 116/76
[2021-03-15 07:11] LABS: BASO % 0.3 % (0.0-1.0); EOS # 0.4 10^3/uL (0.0-0.5); EOS % 4.2 % (0.0-3.0); HEMATOCRIT 29.2 % (42.0-52.0); HEMOGLOBIN 9.2 g/dl (13.5-17.5); LYMPH # 0.5 10^3/uL (1.5-5.0); LYMPH % 5.2 % (24.0-44.0); MEAN CORPUSCULAR HEMOGLOBIN 30.1 pg (27.0-33.0); MEAN CORPUSCULAR HGB CONC 31.5 g/dl (32.0-36.5); MEAN CORPUSCULAR VOLUME 95.4 fl (80.0-96.0); MONO # 0.4 10^3/uL (0.0-0.8); MONO % 4.9 % (2.0-8.0); NEUTROPHILS # 7.3 10^3/uL (1.5-8.5); NEUTROPHILS % 84.7 % (36.0-66.0); PLATELET COUNT, AUTOMATED 130 10^3/uL (150-450); RED BLOOD COUNT 3.06 10^6/uL (4.30-6.10); WHITE BLOOD COUNT 8.6 10^3/uL (4.0-10.0)
[2021-03-15 07:49] LABS: ALBUMIN 1.8 GM/DL (3.2-5.2); BILIRUBIN,TOTAL 4.5 MG/DL (0.2-1.0); CALCIUM LEVEL 6.7 MG/DL (8.8-10.2); CREATININE FOR GFR 2.5 MG/DL (0.70-1.30); GLOMERULAR FILTRATION RATE 27.8 (>49); MAGNESIUM LEVEL 1.8 MG/DL (1.8-2.4); PERCENT SATURATION 34.9 % (19.7-50.0); PHOSPHORUS LEVEL 2.6 MG/DL (2.5-4.9); POTASSIUM SERUM 3.5 MEQ/L (3.5-5.1); TOTAL PROTEIN 6.3 GM/DL (6.4-8.2)
[2021-03-15] MEDS ORDERED: POTASSIUM CHLORIDE 10MEQ SR TABLET PO ONE (10:05)
[2021-03-15] MEDS: FERROUS GLUCONATE 324 MG TAB PO SCH (10:16)
[2021-03-15] MEDS: LACTOBACILLUS ACIDOPHILUS CAP (BACID) PO SCH ×2 (10:16→21:03)
[2021-03-15] MEDS: PREGABALIN 100 MG CAP (LYRICA) PO SCH ×2 (10:16→21:03)
[2021-03-15] MEDS: TAMSULOSIN 0.4 MG CAP PO SCH (10:16)
[2021-03-15] MEDS: allopurinoL 100 MG TAB PO SCH (10:16)
[2021-03-15] MEDS: METOPROLOL TART 25 MG TABLET PO SCH (10:19)
[2021-03-15] MEDS ORDERED: diphenhydrAMINE 50MG/ML VIAL (J1200) As Ordered ONE (13:20)
[2021-03-15] MEDS ORDERED: fentaNYL 100 MCG/2 ML INJECTION As Ordered ONE (13:20)
[2021-03-15] MEDS ORDERED: ISOVUE-300 61% 50ML VIAL As Ordered ONE (13:21)
[2021-03-15] MEDS ORDERED: MIDAZOLAM INJ 2MG/2ML VIAL (J2250 PER 1MG) As Ordered ONE (13:21)
[2021-03-15] MEDS ORDERED: LIDOCAINE 1% MDV 20ML VIAL As Ordered ONE (13:21)
[2021-03-15 14:50] VITALS: BP 112/77
[2021-03-15] MEDS: traZODone 100 MG TAB PO SCH (21:03)
[2021-03-15] MEDS: FLUoxetine 20 MG CAP PO SCH (21:03)
[2021-03-15] MEDS: POTASSIUM CHLORIDE 10MEQ SR TABLET PO SCH (21:04)
[2021-03-15 22:00] VITALS: BP 110/68
[2021-03-16] MEDS: PIPERACILLIN/TAZOBACTAM SOD 3.375 GM in D5W MINI-BAG PLUS 50 ML IV SCH ×5 (00:13→23:56)
[2021-03-16] MEDS: HYDROMORPHONE HCL 0.5 MG/ 0.5 ML SYRINGE (J1170 PER 1) IV PRN ×3 (02:01→20:28)
[2021-03-16 06:00] VITALS: BP 117/71
[2021-03-16] MEDS: HEPARIN SOD (PORCINE) 5000UNITS/ML 1ML VIAL/SYRINGE SQ SCH ×3 (06:13→20:27)
[2021-03-16 06:40] LABS: BASO # 0.1 10^3/uL (0.0-0.2); BASO % 0.6 % (0.0-1.0); EOS # 0.2 10^3/uL (0.0-0.5); EOS % 2.9 % (0.0-3.0); HEMATOCRIT 32.4 % (42.0-52.0); HEMOGLOBIN 9.7 g/dl (13.5-17.5); LYMPH # 0.9 10^3/uL (1.5-5.0); LYMPH % 10.8 % (24.0-44.0); MEAN CORPUSCULAR HEMOGLOBIN 30.2 pg (27.0-33.0); MEAN CORPUSCULAR HGB CONC 29.9 g/dl (32.0-36.5); MEAN CORPUSCULAR VOLUME 100.9 fl (80.0-96.0); MONO # 0.5 10^3/uL (0.0-0.8); MONO % 6.1 % (2.0-8.0); NEUTROPHILS # 6.5 10^3/uL (1.5-8.5); PLATELET COUNT, AUTOMATED 143 10^3/uL (150-450); RED BLOOD COUNT 3.21 10^6/uL (4.30-6.10); WHITE BLOOD COUNT 8.2 10^3/uL (4.0-10.0)
[2021-03-16] MEDS ORDERED: CALCIUM GLUCONATE 1,000 MG in D5W MINI-BAG PLUS 100 ML IV ONE ×2 (06:40→07:00)
[2021-03-16 07:03] LABS: ALBUMIN 1.8 GM/DL (3.2-5.2); BILIRUBIN,TOTAL 3.1 MG/DL (0.2-1.0); CALCIUM LEVEL 6.7 MG/DL (8.8-10.2); CREATININE FOR GFR 2.47 MG/DL (0.70-1.30); GLOMERULAR FILTRATION RATE 28.2 (>49); PHOSPHORUS LEVEL 2.2 MG/DL (2.5-4.9); POTASSIUM SERUM 3.9 MEQ/L (3.5-5.1); TOTAL PROTEIN 6.3 GM/DL (6.4-8.2)
[2021-03-16] MEDS: FERROUS GLUCONATE 324 MG TAB PO SCH (08:06)
[2021-03-16] MEDS: TAMSULOSIN 0.4 MG CAP PO SCH (08:06)
[2021-03-16] MEDS: PREGABALIN 100 MG CAP (LYRICA) PO SCH ×2 (08:06→20:28)
[2021-03-16] MEDS: LACTOBACILLUS ACIDOPHILUS CAP (BACID) PO SCH ×2 (08:06→20:28)
[2021-03-16] MEDS: allopurinoL 100 MG TAB PO SCH (08:08)
[2021-03-16] MEDS: METOPROLOL TART 25 MG TABLET PO SCH (08:08)
[2021-03-16] MEDS: CALCIUM CARBONATE 500 MG CHEW U/D PO SCH ×3 (12:43→20:29)
[2021-03-16] MEDS ORDERED: MIRALAX *UNIT DOSE* 17GM PACKET PO PRN (13:50)
[2021-03-16 14:00] VITALS: BP 115/70
[2021-03-16] MEDS: DOCUSATE SODIUM 100MG CAPSULE PO SCH ×2 (14:34→20:28)
[2021-03-16] MEDS: POTASSIUM CHLORIDE 10MEQ SR TABLET PO SCH (20:28)
[2021-03-16] MEDS: traZODone 100 MG TAB PO SCH (20:28)
[2021-03-16] MEDS: FLUoxetine 20 MG CAP PO SCH (20:28)
[2021-03-16 22:00] VITALS: BP 126/82
[2021-03-17 05:17] LABS: HEMATOCRIT 29.9 % (42.0-52.0); HEMOGLOBIN 9.2 g/dl (13.5-17.5); MEAN CORPUSCULAR HEMOGLOBIN 30.2 pg (27.0-33.0); MEAN CORPUSCULAR HGB CONC 30.8 g/dl (32.0-36.5); PLATELET COUNT, AUTOMATED 139 10^3/uL (150-450); RED BLOOD COUNT 3.05 10^6/uL (4.30-6.10); WHITE BLOOD COUNT 9.1 10^3/uL (4.0-10.0)
[2021-03-17] MEDS: PIPERACILLIN/TAZOBACTAM SOD 3.375 GM in D5W MINI-BAG PLUS 50 ML IV SCH ×3 (05:42→17:15)
[2021-03-17] MEDS: HEPARIN SOD (PORCINE) 5000UNITS/ML 1ML VIAL/SYRINGE SQ SCH ×3 (05:42→21:18)
[2021-03-17 05:49] LABS: CREATININE FOR GFR 2.36 MG/DL (0.70-1.30); GLOMERULAR FILTRATION RATE 29.7 (>49); POTASSIUM SERUM 3.7 MEQ/L (3.5-5.1)
[2021-03-17 05:50] LABS: ALBUMIN 1.7 GM/DL (3.2-5.2); BILIRUBIN,TOTAL 2.8 MG/DL (0.2-1.0); TOTAL PROTEIN 6.3 GM/DL (6.4-8.2)
[2021-03-17 06:00] VITALS: BP 127/81
[2021-03-17] MEDS: TAMSULOSIN 0.4 MG CAP PO SCH (08:12)
[2021-03-17] MEDS: allopurinoL 100 MG TAB PO SCH (08:12)
[2021-03-17] MEDS: FERROUS GLUCONATE 324 MG TAB PO SCH (08:12)
[2021-03-17] MEDS: DOCUSATE SODIUM 100MG CAPSULE PO SCH ×2 (08:12→21:19)
[2021-03-17] MEDS: LACTOBACILLUS ACIDOPHILUS CAP (BACID) PO SCH ×2 (08:12→21:19)
[2021-03-17] MEDS: PREGABALIN 100 MG CAP (LYRICA) PO SCH ×2 (08:13→21:19)
[2021-03-17] MEDS: CALCIUM CARBONATE 500 MG CHEW U/D PO SCH (08:13)
[2021-03-17] MEDS: METOPROLOL TART 25 MG TABLET PO SCH (08:13)
[2021-03-17] MEDS ORDERED: CALCIUM CARBONATE 500 MG CHEW U/D PO PRN (13:55)
[2021-03-17 14:00] VITALS: BP 106/67
[2021-03-17] MEDS: MIRALAX *UNIT DOSE* 17GM PACKET PO SCH (14:31)
[2021-03-17] MEDS: SUCRALFATE SUSP 1GM/10ML UD PO SCH ×2 (17:15→21:18)
[2021-03-17 20:11] VITALS: BP 137/70
[2021-03-17] MEDS ORDERED: PANTOPRAZOLE 40MG TAB (PROTONIX) PO SCH (21:00)
[2021-03-17] MEDS: FLUoxetine 20 MG CAP PO SCH (21:18)
[2021-03-17] MEDS: traZODone 100 MG TAB PO SCH (21:19)
[2021-03-17] MEDS: POTASSIUM CHLORIDE 10MEQ SR TABLET PO SCH (21:19)
[2021-03-18] MEDS: PIPERACILLIN/TAZOBACTAM SOD 3.375 GM in D5W MINI-BAG PLUS 50 ML IV SCH ×2 (00:58→05:48)
[2021-03-18] MEDS: HYDROMORPHONE HCL 0.5 MG/ 0.5 ML SYRINGE (J1170 PER 1) IV PRN (01:06)
[2021-03-18] MEDS: HEPARIN SOD (PORCINE) 5000UNITS/ML 1ML VIAL/SYRINGE SQ SCH (05:47)
[2021-03-18 06:24] VITALS: BP 102/68
[2021-03-18 07:23] LABS: HEMATOCRIT 28.5 % (42.0-52.0); HEMOGLOBIN 8.8 g/dl (13.5-17.5); MEAN CORPUSCULAR HEMOGLOBIN 30.2 pg (27.0-33.0); MEAN CORPUSCULAR HGB CONC 30.9 g/dl (32.0-36.5); MEAN CORPUSCULAR VOLUME 97.9 fl (80.0-96.0); PLATELET COUNT, AUTOMATED 144 10^3/uL (150-450); RED BLOOD COUNT 2.91 10^6/uL (4.30-6.10); WHITE BLOOD COUNT 8.4 10^3/uL (4.0-10.0)
[2021-03-18 07:58] LABS: ALBUMIN 1.6 GM/DL (3.2-5.2); BILIRUBIN,TOTAL 3.5 MG/DL (0.2-1.0); CALCIUM LEVEL 6.9 MG/DL (8.8-10.2); CREATININE FOR GFR 2.05 MG/DL (0.70-1.30); PHOSPHORUS LEVEL 1.3 MG/DL (2.5-4.9); POTASSIUM SERUM 3.4 MEQ/L (3.5-5.1); TOTAL PROTEIN 6.1 GM/DL (6.4-8.2)
[2021-03-18] MEDS: SUCRALFATE SUSP 1GM/10ML UD PO SCH ×2 (08:16→11:49)
[2021-03-18] MEDS: TAMSULOSIN 0.4 MG CAP PO SCH (08:16)
[2021-03-18] MEDS: LACTOBACILLUS ACIDOPHILUS CAP (BACID) PO SCH (08:16)
[2021-03-18] MEDS: DOCUSATE SODIUM 100MG CAPSULE PO SCH (08:16)
[2021-03-18 08:17] VITALS: BP 102/68
[2021-03-18] MEDS: PREGABALIN 100 MG CAP (LYRICA) PO SCH (08:17)
[2021-03-18] MEDS: FERROUS GLUCONATE 324 MG TAB PO SCH (08:17)
[2021-03-18] MEDS: METOPROLOL TART 25 MG TABLET PO SCH (08:17)
[2021-03-18] MEDS: allopurinoL 100 MG TAB PO SCH (08:18)
[2021-03-18] MEDS: MIRALAX *UNIT DOSE* 17GM PACKET PO SCH (08:18)
[2021-03-18] MEDS ORDERED: AUGMENTIN 875 MG TAB PO SCH (09:00)
[2021-03-18] MEDS ORDERED: DARBEPOETIN 100 MCG/0.5 ML *NON-DIALYSIS* SYRINGE (J0881) SC SCH (09:00)
[2021-03-18] MEDS ORDERED: AMOX875T2 PO (10:51)
[2021-03-18] MEDS ORDERED: HYDR-3713 PO (10:51)
[2021-03-25] MEDS ORDERED: ALBU83IN NEB (10:49)
[2021-03-25] MEDS ORDERED: MUCI600T31 PO ×2 (10:49)
[2021-03-25] MEDS ORDERED: ACET650S3 PR (10:49)
[2021-03-25] MEDS ORDERED: TAMS1CAP17 PO (10:49)
[2021-03-25] MEDS ORDERED: XARE10TA PO (10:49)
[2021-03-25] MEDS ORDERED: JUVEPOW4 PO (10:49)
== END 2021-03-18 13:40 | DRG 435 ==
LOC: M ED 16:26 → M ED INP 21:39 → ENRESERV 23:42 → M MS5PR 03-12 00:45
PROVIDERS: ADMIT Internal Medicine; ATTEND Internal Medicine
PROC: 0DB98ZX Excision of Duodenum, Via Natural or Artificial Opening Endoscopic, Diagnostic (ICD-10-PCS; principal; 2021-03-12 15:00)
PROC: 0F9430Z Drainage of Gallbladder with Drainage Device, Percutaneous Approach (ICD-10-PCS; 2021-03-15)
DX: C24.1 Malignant neoplasm of ampulla of Vater (principal); K83.1 Obstruction of bile duct; I50.32 Chronic diastolic (congestive) heart failure; I13.0 Hypertensive heart and chronic kidney disease with heart failure and stage 1 through stage 4 chronic kidney disease, or unspecified chronic kidney disease; K31.5 Obstruction of duodenum; G82.20 Paraplegia, unspecified; L97.229 Non-pressure chronic ulcer of left calf with unspecified severity; C78.7 Secondary malignant neoplasm of liver and intrahepatic bile duct; N17.9 Acute kidney failure, unspecified; E87.1 Hypo-osmolality and hyponatremia; N18.32 Chronic kidney disease, stage 3b; I48.91 Unspecified atrial fibrillation; Z79.01 Long term (current) use of anticoagulants; Z79.899 Other long term (current) drug therapy; Z20.822 Contact with and (suspected) exposure to COVID-19; Z88.1 Allergy status to other antibiotic agents; M10.9 Gout, unspecified; F10.11 Alcohol abuse, in remission; R74.01 Elevation of levels of liver transaminase levels; D63.1 Anemia in chronic kidney disease; I25.10 Atherosclerotic heart disease of native coronary artery without angina pectoris; I73.9 Peripheral vascular disease, unspecified; L89.90 Pressure ulcer of unspecified site, unspecified stage; E83.51 Hypocalcemia; E88.09 Other disorders of plasma-protein metabolism, not elsewhere classified

== ENCOUNTER → 2021-03-22 | Outpatient (REF) | payer MEDICARE ==
[~2021-03-22] MED LIST changes: +ACET-907 PO; +ACET650S3 PR; +ALBU83IN NEB; +ALLO100T PO; +AMOX875T2 PO; +BISA10SU20 PR; +CIPR500T39 PO; +DESI13CR2 EXT; +FERR324T21 PO; +FLEEENE12 PR; +HYDR-3713 PO; +JUVEPOW4 PO; +METO1TAB87 PO; +MILKSUS3 PO; +MIRA1POW3 PO; +MUCI600T31 PO; +POTA1TAB14 PO; +SENN-122 PO; +SILV1CRE60 TOP; +TAMS1CAP17 PO; +TRAZ-189 PO
[2021-03-22 11:28] LABS: HEMATOCRIT 30.1 % (42.0-52.0); MEAN CORPUSCULAR HEMOGLOBIN 29.5 pg (27.0-33.0); MEAN CORPUSCULAR HGB CONC 29.9 g/dl (32.0-36.5); MEAN CORPUSCULAR VOLUME 98.7 fl (80.0-96.0); PLATELET COUNT, AUTOMATED 143 10^3/uL (150-450); RED BLOOD COUNT 3.05 10^6/uL (4.30-6.10); WHITE BLOOD COUNT 7.2 10^3/uL (4.0-10.0)
[2021-03-22 12:00] LABS: ALBUMIN 1.9 GM/DL (3.2-5.2); BILIRUBIN,DIRECT 1.4 MG/DL (0.0-0.2); BILIRUBIN,TOTAL 1.7 MG/DL (0.2-1.0); CALCIUM LEVEL 6.7 MG/DL (8.8-10.2); CREATININE FOR GFR 1.7 MG/DL (0.70-1.30); GLOMERULAR FILTRATION RATE 43.4 (>49); TOTAL PROTEIN 7.2 GM/DL (6.4-8.2)
== END ==
PROVIDERS: ATTEND Internal Medicine
DX: K81.0 Acute cholecystitis (principal)

== ENCOUNTER → 2021-03-24 | Outpatient (REF) | payer MEDICARE ==
[2021-03-24 13:10] LABS: BASO % 0.7 % (0.0-1.0); EOS # 0.3 10^3/uL (0.0-0.5); EOS % 5.3 % (0.0-3.0); HEMATOCRIT 27.7 % (42.0-52.0); HEMOGLOBIN 8.4 g/dl (13.5-17.5); LYMPH # 1.9 10^3/uL (1.5-5.0); LYMPH % 32.5 % (24.0-44.0); MEAN CORPUSCULAR HEMOGLOBIN 29.7 pg (27.0-33.0); MEAN CORPUSCULAR HGB CONC 30.3 g/dl (32.0-36.5); MEAN CORPUSCULAR VOLUME 97.9 fl (80.0-96.0); MONO # 0.5 10^3/uL (0.0-0.8); MONO % 8.2 % (2.0-8.0); NEUTROPHILS # 3.1 10^3/uL (1.5-8.5); PLATELET COUNT, AUTOMATED 117 10^3/uL (150-450); RED BLOOD COUNT 2.83 10^6/uL (4.30-6.10); WHITE BLOOD COUNT 5.9 10^3/uL (4.0-10.0)
[2021-03-24 14:02] LABS: APPEARANCE, URINE CLEAR (CLEAR); BACTERIA, URINE AUTO NEGATIVE (NEGATIVE); BILIRUBIN, URINE AUTO NEGATIVE (NEGATIVE); BLOOD, URINE BLOOD NEGATIVE (NEGATIVE); COLOR, URINE YELLOW (YELLOW); GLUCOSE, URINE (UA) AUTO NEGATIVE (NEGATIVE); KETONE, URINE AUTO NEGATIVE (NEGATIVE); LEUKOCYTE ESTERASE, URINE AUTO TRACE (NEGATIVE); NITRITE, URINE AUTO NEGATIVE (NEGATIVE); PROTEIN, URINE AUTO NEGATIVE (NEGATIVE); RBC, URINE AUTO 0 /HPF (0-3); SPECIFIC GRAVITY URINE AUTO 1.011 (1.002-1.035); SQUAMOUS EPITHELIAL CELL UR AU 1 /HPF (0-6); UROBILINOGEN, URINE AUTO 0.2 mg/dL (0.0-2.0); WBC, URINE AUTO 3 /HPF (0-3)
[2021-03-24 14:21] LABS: ALBUMIN 1.8 GM/DL (3.2-5.2); CALCIUM LEVEL 6.7 MG/DL (8.8-10.2); CREATININE FOR GFR 1.71 MG/DL (0.70-1.30); GLOMERULAR FILTRATION RATE 43.1 (>49); PHOSPHORUS LEVEL 4.3 MG/DL (2.5-4.9); POTASSIUM SERUM 3.7 MEQ/L (3.5-5.1); URIC ACID 8.7 MG/DL (3.5-7.2)
[2021-03-24 20:39] LABS: MAGNESIUM LEVEL 1.6 MG/DL (1.8-2.4)
== END ==
PROVIDERS: ATTEND Internal Medicine
DX: N18.9 Chronic kidney disease, unspecified (principal)

== ENCOUNTER → 2021-03-29 | Outpatient (REF) | payer MEDICARE, MEDICAID ==
[2021-03-29 10:51] LABS: HEMATOCRIT 30.1 % (42.0-52.0); MEAN CORPUSCULAR HEMOGLOBIN 29.6 pg (27.0-33.0); MEAN CORPUSCULAR HGB CONC 29.9 g/dl (32.0-36.5); PLATELET COUNT, AUTOMATED 198 10^3/uL (150-450); RED BLOOD COUNT 3.04 10^6/uL (4.30-6.10); WHITE BLOOD COUNT 6.6 10^3/uL (4.0-10.0)
[2021-03-29 11:19] LABS: ALBUMIN 2.1 GM/DL (3.2-5.2); BILIRUBIN,TOTAL 1.2 MG/DL (0.2-1.0); CALCIUM LEVEL 7.3 MG/DL (8.8-10.2); CREATININE FOR GFR 1.54 MG/DL (0.70-1.30); GLOMERULAR FILTRATION RATE 48.7 (>49); POTASSIUM SERUM 3.6 MEQ/L (3.5-5.1); TOTAL PROTEIN 8.2 GM/DL (6.4-8.2)
== END ==
PROVIDERS: ATTEND Physician Assistant
DX: K81.0 Acute cholecystitis (principal)

== ENCOUNTER → 2021-04-05 | Outpatient (CLI) | payer MEDICARE, MEDICAID | LOC: M PLARAD 07:31 | PROVIDERS: ATTEND Internal Medicine | DX: C78.4 Secondary malignant neoplasm of small intestine (principal) | CPT/HCPCS: 78815; A9552 ==

== ENCOUNTER → 2021-05-04 | Outpatient (REF) | payer MEDICARE, MEDICAID ==
[~2021-05-04] MED LIST changes: +ATIV1TAB7 PO; +MORP1SOL4 SL; +ONDA4TAB6 PO; +SODIGEL NARES; +TRAM50TA2 PO
[2021-05-04 12:56] LABS: ALBUMIN 2.2 GM/DL (3.2-5.2); BILIRUBIN,DIRECT 0.5 MG/DL (0.0-0.2); BILIRUBIN,TOTAL 0.6 MG/DL (0.2-1.0); CALCIUM LEVEL 8.2 MG/DL (8.8-10.2); CREATININE FOR GFR 1.83 MG/DL (0.70-1.30); GLOMERULAR FILTRATION RATE 39.9 (>49); POTASSIUM SERUM 4.5 MEQ/L (3.5-5.1); TOTAL PROTEIN 6.9 GM/DL (6.4-8.2)
== END ==
PROVIDERS: ATTEND Physician Assistant
DX: R05.9 Cough, unspecified (principal)

== ENCOUNTER → 2021-05-04 | Outpatient (CLI) | payer MEDICARE, MEDICAID ==
[2021-05-04 14:57] LABS: BASO % 0.1 % (0.0-1.0); EOS # 0.2 10^3/uL (0.0-0.5); EOS % 1.9 % (0.0-3.0); HEMATOCRIT 21.6 % (42.0-52.0); LYMPH # 1.8 10^3/uL (1.5-5.0); LYMPH % 15.3 % (24.0-44.0); MEAN CORPUSCULAR HEMOGLOBIN 27.2 pg (27.0-33.0); MEAN CORPUSCULAR HGB CONC 30.6 g/dl (32.0-36.5); MEAN CORPUSCULAR VOLUME 88.9 fl (80.0-96.0); MONO # 0.7 10^3/uL (0.0-0.8); MONO % 6.3 % (2.0-8.0); NEUTROPHILS # 8.7 10^3/uL (1.5-8.5); NEUTROPHILS % 75.9 % (36.0-66.0); PLATELET COUNT, AUTOMATED 256 10^3/uL (150-450); RED BLOOD COUNT 2.43 10^6/uL (4.30-6.10); WHITE BLOOD COUNT 11.4 10^3/uL (4.0-10.0)
[2021-05-04 15:02] LABS: HEMOGLOBIN 6.6 g/dl (13.5-17.5)
[2021-05-04 15:21] LABS: ALBUMIN 2.5 GM/DL (3.2-5.2); BILIRUBIN,DIRECT 0.7 MG/DL (0.0-0.2); BILIRUBIN,TOTAL 0.9 MG/DL (0.2-1.0); CALCIUM LEVEL 8.3 MG/DL (8.8-10.2); CREATININE FOR GFR 1.83 MG/DL (0.70-1.30); GLOMERULAR FILTRATION RATE 39.9 (>49); POTASSIUM SERUM 3.9 MEQ/L (3.5-5.1)
== END ==
LOC: M RAD 13:46
PROVIDERS: ATTEND Internal Medicine
DX: R91.8 Other nonspecific abnormal finding of lung field (principal); J90 Pleural effusion, not elsewhere classified; R05.9 Cough, unspecified

== ENCOUNTER → 2021-05-05 | Outpatient (REF) | payer MEDICARE, MEDICAID ==
[2021-04-07 11:42] LABS: HEMATOCRIT 31.5 % (42.0-52.0); HEMOGLOBIN 9.6 g/dl (13.5-17.5); MEAN CORPUSCULAR HEMOGLOBIN 29.5 pg (27.0-33.0); MEAN CORPUSCULAR HGB CONC 30.5 g/dl (32.0-36.5); MEAN CORPUSCULAR VOLUME 96.9 fl (80.0-96.0); PLATELET COUNT, AUTOMATED 187 10^3/uL (150-450); RED BLOOD COUNT 3.25 10^6/uL (4.30-6.10); WHITE BLOOD COUNT 8.8 10^3/uL (4.0-10.0)
[2021-04-07 12:06] LABS: ALBUMIN 2.3 GM/DL (3.2-5.2); BILIRUBIN,DIRECT 1.8 MG/DL (0.0-0.2); BILIRUBIN,TOTAL 2.1 MG/DL (0.2-1.0); CREATININE FOR GFR 1.69 MG/DL (0.70-1.30); GLOMERULAR FILTRATION RATE 43.7 (>49); POTASSIUM SERUM 3.8 MEQ/L (3.5-5.1); TOTAL PROTEIN 8.4 GM/DL (6.4-8.2)
== END ==
PROVIDERS: ATTEND Physician Assistant
DX: K81.9 Cholecystitis, unspecified (principal)

== ENCOUNTER → 2021-05-05 | Outpatient (REF) | payer MEDICARE, MEDICAID | PROVIDERS: ATTEND Physician Assistant | DX: C79.9 Secondary malignant neoplasm of unspecified site (principal); Z53.9 Procedure and treatment not carried out, unspecified reason ==